=== PATIENT | male | born 1965 | race African-American/Black ===

== ENCOUNTER 2020-09-07 12:10 | Outpatient (REF) | payer OTHER, SELFPAY ==
[2020-09-07 13:48] LABS: MANUAL DIFF FLAG NO
[2020-09-07 13:58] LABS: Basophils Percent Auto 0.8 % (0-2); Eosinophils Absolute Auto 0.1 X10*3/uL (0.0-0.4); Eosinophils Percent Auto 2.5 % (0-4); Hematocrit 27.1 % (42-52); Hemoglobin 8.9 g/dl (14.0-18.0); INTERNATIONAL NORM RATIO 1.4 (0.9-1.1); Imm Gran Abs Auto 0.01 X10*3/uL (0.00-0.03); Imm Gran Pct Auto 0.3 % (0.0-0.4); Lymphocytes Absolute Auto 1.3 X10*3/uL (1.2-4.9); Lymphocytes Percent Auto 36.5 % (20-40); Mean Corpuscular HGB Conc 32.8 g/dl (31.0-36.0); Mean Corpuscular Hemoglobin 28.9 pg (27.0-33.0); Mean Platelet Volume 9.8 fL (9.4-12.4); Monocytes Absolute Auto 0.5 X10*3/uL (0.1-1.2); Monocytes Percent Auto 13.2 % (2-11); Neutrophils Absolute Auto 1.7 X10*3/uL (2.0-8.3); Neutrophils Percent Auto 46.7 % (45-73); Platelet Count 222 X10*3/uL (160-400); Prothrombin Time 16.3 SEC (10.8-13.0); Red Blood Count 3.08 X10*6/uL (4.60-5.80); Red Cell Distribution Width 16.5 % (11.0-16.0); White Blood Count 3.6 X10*3/uL (4.8-10.8)
[2020-09-07 14:40] LABS: Alanine Aminotransferase 42 U/L (0-40); Albumin Level 2.4 g/dL (3.5-5.0); Alkaline Phosphatase 226 U/L (39-117); Anion Gap 10 (12-20); Aspartate Amino Transferase 113 U/L (5-37); Bilirubin Total 2.1 mg/dL (0.0-1.0); Blood Urea Nitrogen 9 mg/dL (9-16); Carbon Dioxide 20 mmol/L (22-29); Chloride 110 mmol/L (96-108); Estimated Glomerular Filt Rate > 60; Glucose Random 204 mg/dL (60-115); Magnesium 1.7 mg/dL (1.6-2.6); Potassium 4.2 mmol/l (3.3-5.1); Sodium 136 mmol/L (135-145); Total Protein 7.3 g/dL (6.5-8.0)
[2020-09-07 14:55] LABS: Calcium 8.1 mg/dL (8.4-10.2)
[2020-09-08 17:08] LABS: C Reactive Protein 1.76 mg/dL (< or = 0.50); Iron 33 mcg/dL (45-160); Percent Iron Saturation 10 % (15-50); Total Iron Binding Capacity 337 mcg/dL (228-428); Unsaturated Iron Binding 304 ug/dL
[2020-09-08 17:28] LABS: Ferritin 19 ng/mL (20-250)
== END 2020-09-07 12:11 | disposition home or self-care (01) ==
LOC: HO.LAB 12:10
PROVIDERS: Visit Provider Internal Medicine Gastroenterology
DX: K70.10 Alcoholic hepatitis without ascites (principal)
CPT/HCPCS: 36415; 80053; 82728; 83540; 83735; 85025; 85610; 86140

== ENCOUNTER → 2020-09-08 15:39 | Outpatient (BNVA) | payer OTHER, SELFPAY | PROVIDERS: Visit Provider Internal Medicine Gastroenterology | DX: K70.0 Alcoholic fatty liver (principal); F10.10 Alcohol abuse, uncomplicated; E88.09 Other disorders of plasma-protein metabolism, not elsewhere classified; K51.90 Ulcerative colitis, unspecified, without complications; D68.9 Coagulation defect, unspecified; D64.9 Anemia, unspecified | CPT/HCPCS: 99212 ==

== ENCOUNTER 2020-10-05 13:01 | Outpatient (REF) | payer OTHER, SELFPAY ==
[2020-10-05 14:37] LABS: MANUAL DIFF FLAG NO
[2020-10-05 14:44] LABS: Basophils Percent Auto 0.6 % (0-2); Eosinophils Absolute Auto 0.1 X10*3/uL (0.0-0.4); Eosinophils Percent Auto 2.7 % (0-4); Hematocrit 26.2 % (42-52); Hemoglobin 8.7 g/dl (14.0-18.0); Imm Gran Abs Auto 0.02 X10*3/uL (0.00-0.03); Imm Gran Pct Auto 0.4 % (0.0-0.4); Lymphocytes Absolute Auto 1.3 X10*3/uL (1.2-4.9); Mean Corpuscular HGB Conc 33.2 g/dl (31.0-36.0); Mean Corpuscular Hemoglobin 26.7 pg (27.0-33.0); Mean Corpuscular Volume 80.4 fL (80-98); Mean Platelet Volume 9.2 fL (9.4-12.4); Monocytes Absolute Auto 0.6 X10*3/uL (0.1-1.2); Monocytes Percent Auto 11.7 % (2-11); Neutrophils Absolute Auto 2.7 X10*3/uL (2.0-8.3); Neutrophils Percent Auto 56.6 % (45-73); Platelet Count 216 X10*3/uL (160-400); Red Blood Count 3.26 X10*6/uL (4.60-5.80); Red Cell Distribution Width 19.4 % (11.0-16.0); White Blood Count 4.8 X10*3/uL (4.8-10.8)
[2020-10-05 14:47] LABS: INTERNATIONAL NORM RATIO 1.5 (0.9-1.1); Prothrombin Time 18.3 SEC (10.8-13.0)
[2020-10-05 15:23] LABS: Alanine Aminotransferase 54 U/L (0-40); Albumin Level 2.3 g/dL (3.5-5.0); Alkaline Phosphatase 294 U/L (39-117); Anion Gap 11 (12-20); Aspartate Amino Transferase 142 U/L (5-37); Bilirubin Total 3.2 mg/dL (0.0-1.0); Blood Urea Nitrogen 6 mg/dL (9-16); Calcium 8.1 mg/dL (8.4-10.2); Carbon Dioxide 22 mmol/L (22-29); Chloride 107 mmol/L (96-108); Estimated Glomerular Filt Rate > 60; Gamma Glutamyl Transpeptidase 777 U/L (11-51); Glucose Random 88 mg/dL (60-115); Potassium 4.2 mmol/l (3.3-5.1); Sodium 136 mmol/L (135-145); Total Protein 7.1 g/dL (6.5-8.0)
[2020-10-06 18:33] LABS: C Reactive Protein 1.66 mg/dL (< or = 0.50); Iron 33 mcg/dL (45-160); Percent Iron Saturation 10 % (15-50); Total Iron Binding Capacity 336 mcg/dL (228-428); Unsaturated Iron Binding 303 ug/dL
[2020-10-06 18:53] LABS: Ferritin 15 ng/mL (20-250)
== END 2020-10-05 13:02 | disposition home or self-care (01) ==
LOC: HO.LAB 13:01
PROVIDERS: Visit Provider Internal Medicine Gastroenterology
DX: D64.9 Anemia, unspecified (principal); K76.0 Fatty (change of) liver, not elsewhere classified; Z79.01 Long term (current) use of anticoagulants
CPT/HCPCS: 36415; 80053; 82728; 82977; 83540; 85025; 85610; 86140

== ENCOUNTER → 2020-10-21 13:23 | Outpatient (BNVA) | payer OTHER, SELFPAY | PROVIDERS: Visit Provider Internal Medicine Gastroenterology | DX: Z13.89 Encounter for screening for other disorder (principal) ==

== ENCOUNTER 2020-11-03 08:07 | Emergency (ER) | payer OTHER, SELFPAY ==
[2020-11-03 08:10] VITALS: BP 139/75; PULSE 97; RESP 20; TEMP 36.9; O2SAT 96; BMI 34.2
--- NOTE | 2020-11-03 08:55 | ECG_ITS ---
Test Reason : WEAKNESS Blood Pressure : / mmHG Vent. Rate : 076 BPM Atrial Rate : 076 BPM P-R Int : 194 ms QRS Dur : 090 ms QT Int : 396 ms P-R-T Axes : 054 -07 -10 degrees QTc Int : 445 ms Normal sinus rhythm with sinus arrhythmia Inferior infarct , age undetermined Poor R wave progression Abnormal ECG No previous ECGs available Referred By: Malka Muller Electronically Signed By:Jean Carlos Randle
[2020-11-03 09:17] VITALS: BP 126/80; PULSE 93; RESP 20; O2SAT 100
--- NOTE | 2020-11-03 09:18 | XR_ITS ---
EXAMINATION: XR CHEST CLINICAL INFORMATION: SOB/generalized weakness COMPARISON: None TECHNIQUE: 2 views of the chest were obtained. FINDINGS: No significant abnormality is noted involving the heart, lungs, mediastinum, bony thorax or soft tissues. XR/XR chest 2V IMPRESSION: Unremarkable chest examination.
--- NOTE | 2020-11-03 09:19 | ED.WEAKNESS ---
HPI - Weakness General Chief complaint: Weakness <CINDI June Last Filed: 11/03/20 10:34> Stated complaint: WEAKNESS <CINDI June Last Filed: 11/03/20 10:34> Time Seen by Provider: 11/03/20 08:53 <CINDI June Last Filed: 11/03/20 10:34> Source: patient <CINDI June Last Filed: 11/03/20 10:34> Mode of arrival: ambulatory <CINDI June Last Filed: 11/03/20 10:34> Limitations: no limitations <CINDI June Last Filed: 11/03/20 10:34> History of Present Illness HPI Narrative: 54yoM c PMHx of alcohol abuse, ulcerative colitis on Lialda QID asprescribed, anemia on Iron supplements, steatohepatitis, hypoalbuminemia, and hyperbilirubinemia who presents to the ED c c/o increased generalized weakness, shortness of breath, dyspnea on exertion and right upper quadrant abdominal pain over the past week. Reports that he has not drank any alcohol in 45 days. Reports taking all his medications as prescribed. He reports he has had weight loss not weight gain. He reports having three bowel movements per day. He denies any blood in stool. Denies fevers, dizziness, changes in vision, CP, orthopnea, back pain, dysuria, hematuria, hemoptysis, melena or any other symptoms complaints or concerns at this time. <CINDI June Last Filed: 11/03/20 10:34> Related Data Home medications: Home Medications Medication Instructions Recorded Confirmed gabapentin 100 mg capsule 100 mg PO DAILY 09/08/20 09/08/20 Previous Rx's Medication Instructions Recorded cholecalciferol (vitamin D3) 1,250 50,000 unit PO QWEEK 84 Days #12 09/03/20 mcg (50,000 unit) capsule cap omeprazole 40 mg capsule,delayed 40 mg PO DAILY 30 Days #30 cap 09/29/20 release propranolol 10 mg tablet 10 mg PO BID 30 Days #60 tab 09/29/20 spironolactone 25 mg tablet 25 mg PO DAILY 30 Days #30 tab 09/29/20 mesalamine 1.2 gram tablet,delayed 4.8 g PO DAILY 30 Days #120 tab 10/02/20 release ferrous sulfate 325 mg (65 mg 325 mg PO TID 30 Days #90 tab 10/14/20 iron) tablet hydroxyzine HCl 25 mg tablet 25 mg PO BEDTIME #30 tab 10/21/20 <CINDI June - Last Filed: 11/03/20 10:34> Allergies/Adverse reactions: Allergies Allergy/AdvReac Type Severity Reaction Status Date / Time No Known Allergies Allergy Unverified 08/06/20 16:40 [No Known Allergies*] <CINDI June - Last Filed: 11/03/20 10:34> Review of Systems Review of Systems: Constitutional : + Weight loss, + Fatigue, No Fever, No Chills, No Night Sweats, No Malaise ENT/Mouth: No ear pain, No sore throat, No Difficulty swallowing Cardiovascular : No Chest Pain, No SOB, No Dyspnea on Exertion, + Orthopnea, NoEdema, No Palpitations Respiratory : + Cough, No Sputum, No Wheezing, No Dyspnea Gastrointestinal : No Nausea, No Vomiting, No Diarrhea, + abdominal Pain, No Hematochezia, No Melena Genitourinary : No irregular bleeding, No Dysuria, No Urinary Frequency, No Hematuria,No Urinary Incontinence, No Urgency, No Flank Pain Musculoskeletal : No joint pain, No Myalgias, No Joint Swelling Skin : No Skin Lesions, No rash Neuro : + Weakness, No Numbness, No Paresthesias, No Loss of Consciousness, NoDizziness, No Headache Psych : No Social Issues, Heme/Lymph: No Bruising, No Bleeding,No Lymphadenopathy Endocrine :No Temperature Intolerance <CINDI June - Last Filed: 11/03/20 10:34> Yes all other systems are reviewed and are negative <CINDI June - Last Filed: 11/03/20 10:34> FORMERLY [facility], 1928–1983 Past Medical History Attestation statement: The following information was validated with the patient. 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 Mother No problems noted. Daughter No problems noted. Son No problems noted. <CINDI June - Last Filed: 11/03/20 10:34> Social History Social History: Social History Household Members: Spouse Alcohol intake: former Smoking Status: Never smoker Use of substances other than those prescribed or required for medical reasons: No Advance Directives: No Advance Directives Information Provided: No service: No Current occupational status: unemployed <CINDI June - Last Filed: 11/03/20 10:34> Physical Exam Vital Signs: Vital Signs: Last Vital Signs Temp 98.4 F 11/03/20 08:10 Pulse 102 H 11/03/20 11:01 Resp 16 11/03/20 11:01 BP 117/68 11/03/20 11:01 Pulse Ox 100 11/03/20 11:01 Body Mass Index 34.2 vital signs have been reviewed as normal and appeared to be correct. Blood pressure normal. Heart rate normal. Respiration rate normal. Temperature normal. Oxygen saturation normal. <CINDI June - Last Filed: 11/03/20 10:34> Vital Signs: Last Vital Signs Temp 98.4 F 11/03/20 08:10 Pulse 102 H 11/03/20 11:01 Resp 16 11/03/20 11:01 BP 117/68 11/03/20 11:01 Pulse Ox 100 11/03/20 11:01 Body Mass Index 34.2 <Taqueria Fuentes MD - Last Filed: 11/03/20 11:44> Appearance: Alert. Oriented X3. No acute distress. Head: Normal external exam. Normocephalic. Eyes: PERRLA. EOMI. Conjunctiva normal. Scleral icterus noted bilaterally. Eyelids normal. ENT: Pharynx normal. Uvula midline. Moist mucous membranes. No trismus noted. No drooling noted. No muffled voice noted. Neck: Normal inspection. Neck supple. FROM. No adenopathy. No meningeal signs. CVS: Normal heart rate and rhythm. Heart sound normal. No murmurs noted. Pulses normal throughout. Respiratory: No respiratory distress. Painless inspiration. Breath sounds normal. No wheezes/rales/rhonchi noted. Chest nontender. No accessory muscle usage noted or decreased air movement noted. Abdomen: Soft and TTP at RUQ/epigastric abdomen with guarding. No rigidity. Negative Roberts sign. Bowel sounds normal in all 4 quadrants. + distention noted. No organomegaly noted. No visible injury noted. No rebound tenderness. Negative Rovsing sign. Negative obturator's sign. Negative psoas sign. Back: No CVA tenderness. Full range of motion noted. Skin: Skin warm and dry. Normal skin color. Normal skin turgor. No rashes/lesions/lacerations noted. Extremities: +1pitting edema b/l noted. No calf tenderness. Extremities exhibit normal range of motion. Extremities nontender. Neuro: Oriented X 3. No motor deficit. No sensory deficit. Reflexes normal. <CINDI June - Last Filed: 11/03/20 10:34> Course Course Course Narrative: 9am - 54yoM c PMHx of alcohol abuse, ulcerative colitis on Lialda QID asprescribed, anemia on Iron supplements, steatohepatitis, hypoalbuminemia, and hyperbilirubinemia who presents to the ED c c/o increased generalized weakness, shortness of breath, dyspnea on exertion and right upper quadrant abdominal pain over the past week. - Concern for anemia vs ACS vs CHF - Plan: Labs, CXR, EKG, Blood type and screen. Provide IVF's and re-evaluate <CINDI June - Last Filed: 11/03/20 10:34> I have discussed the case and management with the RICHY <Taqueria Fuentes MD - Last Filed: 11/03/20 11:44> MDM - Weakness Medical Records Attestation: I reviewed the patient's medical records. <CINDI June - Last Filed: 11/03/20 10:34> Lab Data Attestation: I reviewed the patient's lab results. <CINDI June - Last Filed: 11/03/20 10:34> Result diagrams: : 11/03/20 09:35 11/03/20 09:35 <CINDI June - Last Filed: 11/03/20 10:34> Labs: Lab Results 11/03/20 11/03/20 11/03/20 Range/Units 09:33 09:35 09:35 WBC 5.9 (4.8-10.8) X10*3/uL RBC 3.25 L (4.60-5.80) X10*6/uL Hgb 9.2 L (14.0-18.0) g/dl Hct 26.8 L (42-52) % MCV 82.5 (80-98) fL MCH 28.3 (27.0-33.0) pg MCHC 34.3 (31.0-36.0) g/dl RDW 27.6 H (11.0-16.0) % Plt Count 196 (160-400) X10*3/uL MPV 9.4 (9.4-12.4) fL Immature Gran % (Auto) 0.5 H (0.0-0.4) % Neut % (Auto) 71.0 (45-73) % Lymph % (Auto) 16.5 L (20-40) % [place] % (Auto) 10.2 (2-11) % Eos % (Auto) 1.5 (0-4) % Baso % (Auto) 0.3 (0-2) % Lymph # (Auto) 1.0 L (1.2-4.9) X10*3/uL [place] # (Auto) 0.6 (0.1-1.2) X10*3/uL Eos # (Auto) 0.1 (0.0-0.4) X10*3/uL Baso # (Auto) 0.0 (0.0-0.2) X10*3/uL Abs Immat Gran (auto) 0.03 (0.00-0.03) X10*3/uL Absolute Neuts (auto) 4.2 (2.0-8.3) X10*3/uL Absolute Nucleated RBC 0.000 (0.0-0.012) X10*3/uL Nucleated RBC % (auto) 0.0 (0.0-0.2) /100WBC PT 23.1 H D (10.8-13.0) SEC INR 1.9 H (0.9-1.1) Sodium (135-145) mmol/L Potassium (3.3-5.1) mmol/l Chloride (96-108) mmol/L Carbon Dioxide (22-29) mmol/L Anion Gap (12-20) BUN (9-16) mg/dL Creatinine (0.5-1.4) mg/dL Estim Creat Clear Calc Estimated GFR Random Glucose (60-115) mg/dL Calcium (8.4-10.2) mg/dL Magnesium (1.6-2.6) mg/dL Total Bilirubin (0.0-1.0) mg/dL Direct Bilirubin (0.0-0.5) mg/dL AST (5-37) U/L ALT (0-40) U/L Alkaline Phosphatase (39-117) U/L Troponin I High Sens (<3.5-35.0) ng/L C-Reactive Protein (< or = 0.50) mg/dL B-Natriuretic Peptide (<100) pg/mL Total Protein (6.5-8.0) g/dL Albumin (3.5-5.0) g/dL Ethyl Alcohol mg/dL Coronavirus (PCR) NEGATIVE (Negative) Influenza Type A (PCR) NEGATIVE (Negative) Influenza Type B (PCR) NEGATIVE (Negative) RSV RNA Qual (PCR) NEGATIVE (Negative) Blood Type Antibody Screen 11/03/20 11/03/20 11/03/20 Range/Units 09:35 09:35 09:35 WBC (4.8-10.8) X10*3/uL RBC (4.60-5.80) X10*6/uL Hgb (14.0-18.0) g/dl Hct (42-52) % MCV (80-98) fL MCH (27.0-33.0) pg MCHC (31.0-36.0) g/dl RDW (11.0-16.0) % Plt Count (160-400) X10*3/uL MPV (9.4-12.4) fL Immature Gran % (Auto) (0.0-0.4) % Neut % (Auto) (45-73) % Lymph % (Auto) (20-40) % [place] % (Auto) (2-11) % Eos % (Auto) (0-4) % Baso % (Auto) (0-2) % Lymph # (Auto) (1.2-4.9) X10*3/uL [place] # (Auto) (0.1-1.2) X10*3/uL Eos # (Auto) (0.0-0.4) X10*3/uL Baso # (Auto) (0.0-0.2) X10*3/uL Abs Immat Gran (auto) (0.00-0.03) X10*3/uL Absolute Neuts (auto) (2.0-8.3) X10*3/uL Absolute Nucleated RBC (0.0-0.012) X10*3/uL Nucleated RBC % (auto) (0.0-0.2) /100WBC PT (10.8-13.0) SEC INR (0.9-1.1) Sodium 132 L (135-145) mmol/L Potassium 4.4 (3.3-5.1) mmol/l Chloride 106 (96-108) mmol/L Carbon Dioxide 19 L (22-29) mmol/L Anion Gap 11 L (12-20) BUN 9 (9-16) mg/dL Creatinine 1.08 (0.5-1.4) mg/dL Estim Creat Clear Calc 91.5 Estimated GFR > 60 Random Glucose 101 (60-115) mg/dL Calcium 7.6 L D (8.4-10.2) mg/dL Magnesium 1.6 (1.6-2.6) mg/dL Total Bilirubin 7.8 H (0.0-1.0) mg/dL Direct Bilirubin 5.5 H (0.0-0.5) mg/dL AST 78 H (5-37) U/L ALT 31 (0-40) U/L Alkaline Phosphatase 245 H (39-117) U/L Troponin I High Sens < 3.5 (<3.5-35.0) ng/L C-Reactive Protein (< or = 0.50) mg/dL B-Natriuretic Peptide 18 (<100) pg/mL Total Protein 7.2 (6.5-8.0) g/dL Albumin 2.0 L (3.5-5.0) g/dL Ethyl Alcohol < 10 mg/dL Coronavirus (PCR) (Negative) Influenza Type A (PCR) (Negative) Influenza Type B (PCR) (Negative) RSV RNA Qual (PCR) (Negative) Blood Type Antibody Screen 11/03/20 11/03/20 Range/Units 09:35 10:09 WBC (4.8-10.8) X10*3/uL RBC (4.60-5.80) X10*6/uL Hgb (14.0-18.0) g/dl Hct (42-52) % MCV (80-98) fL MCH (27.0-33.0) pg MCHC (31.0-36.0) g/dl RDW (11.0-16.0) % Plt Count (160-400) X10*3/uL MPV (9.4-12.4) fL Immature Gran % (Auto) (0.0-0.4) % Neut % (Auto) (45-73) % Lymph % (Auto) (20-40) % [place] % (Auto) (2-11) % Eos % (Auto) (0-4) % Baso % (Auto) (0-2) % Lymph # (Auto) (1.2-4.9) X10*3/uL [place] # (Auto) (0.1-1.2) X10*3/uL Eos # (Auto) (0.0-0.4) X10*3/uL Baso # (Auto) (0.0-0.2) X10*3/uL Abs Immat Gran (auto) (0.00-0.03) X10*3/uL Absolute Neuts (auto) (2.0-8.3) X10*3/uL Absolute Nucleated RBC (0.0-0.012) X10*3/uL Nucleated RBC % (auto) (0.0-0.2) /100WBC PT (10.8-13.0) SEC INR (0.9-1.1) Sodium (135-145) mmol/L Potassium (3.3-5.1) mmol/l Chloride (96-108) mmol/L Carbon Dioxide (22-29) mmol/L Anion Gap (12-20) BUN (9-16) mg/dL Creatinine (0.5-1.4) mg/dL Estim Creat Clear Calc Estimated GFR Random Glucose (60-115) mg/dL Calcium (8.4-10.2) mg/dL Magnesium (1.6-2.6) mg/dL Total Bilirubin (0.0-1.0) mg/dL Direct Bilirubin (0.0-0.5) mg/dL AST (5-37) U/L ALT (0-40) U/L Alkaline Phosphatase (39-117) U/L Troponin I High Sens (<3.5-35.0) ng/L C-Reactive Protein 4.29 H (< or = 0.50) mg/dL B-Natriuretic Peptide (<100) pg/mL Total Protein (6.5-8.0) g/dL Albumin (3.5-5.0) g/dL Ethyl Alcohol mg/dL Coronavirus (PCR) (Negative) Influenza Type A (PCR) (Negative) Influenza Type B (PCR) (Negative) RSV RNA Qual (PCR) (Negative) Blood Type O Positive Antibody Screen NEGATIVE <CINDI June - Last Filed: 11/03/20 10:34> Lab Results 11/03/20 11/03/20 11/03/20 Range/Units 09:33 09:35 09:35 WBC 5.9 (4.8-10.8) X10*3/uL RBC 3.25 L (4.60-5.80) X10*6/uL Hgb 9.2 L (14.0-18.0) g/dl Hct 26.8 L (42-52) % MCV 82.5 (80-98) fL MCH 28.3 (27.0-33.0) pg MCHC 34.3 (31.0-36.0) g/dl RDW 27.6 H (11.0-16.0) % Plt Count 196 (160-400) X10*3/uL MPV 9.4 (9.4-12.4) fL Immature Gran % (Auto) 0.5 H (0.0-0.4) % Neut % (Auto) 71.0 (45-73) % Lymph % (Auto) 16.5 L (20-40) % [place] % (Auto) 10.2 (2-11) % Eos % (Auto) 1.5 (0-4) % Baso % (Auto) 0.3 (0-2) % Lymph # (Auto) 1.0 L (1.2-4.9) X10*3/uL [place] # (Auto) 0.6 (0.1-1.2) X10*3/uL Eos # (Auto) 0.1 (0.0-0.4) X10*3/uL Baso # (Auto) 0.0 (0.0-0.2) X10*3/uL Abs Immat Gran (auto) 0.03 (0.00-0.03) X10*3/uL Absolute Neuts (auto) 4.2 (2.0-8.3) X10*3/uL Absolute Nucleated RBC 0.000 (0.0-0.012) X10*3/uL Nucleated RBC % (auto) 0.0 (0.0-0.2) /100WBC PT 23.1 H D (10.8-13.0) SEC INR 1.9 H (0.9-1.1) Sodium (135-145) mmol/L Potassium (3.3-5.1) mmol/l Chloride (96-108) mmol/L Carbon Dioxide (22-29) mmol/L Anion Gap (12-20) BUN (9-16) mg/dL Creatinine (0.5-1.4) mg/dL Estim Creat Clear Calc Estimated GFR Random Glucose (60-115) mg/dL Calcium (8.4-10.2) mg/dL Magnesium (1.6-2.6) mg/dL Total Bilirubin (0.0-1.0) mg/dL Direct Bilirubin (0.0-0.5) mg/dL AST (5-37) U/L ALT (0-40) U/L Alkaline Phosphatase (39-117) U/L Troponin I High Sens (<3.5-35.0) ng/L C-Reactive Protein (< or = 0.50) mg/dL B-Natriuretic Peptide (<100) pg/mL Total Protein (6.5-8.0) g/dL Albumin (3.5-5.0) g/dL Ethyl Alcohol mg/dL Coronavirus (PCR) NEGATIVE (Negative) Influenza Type A (PCR) NEGATIVE (Negative) Influenza Type B (PCR) NEGATIVE (Negative) RSV RNA Qual (PCR) NEGATIVE (Negative) Blood Type Antibody Screen 11/03/20 11/03/20 11/03/20 Range/Units 09:35 09:35 09:35 WBC (4.8-10.8) X10*3/uL RBC (4.60-5.80) X10*6/uL Hgb (14.0-18.0) g/dl Hct (42-52) % MCV (80-98) fL MCH (27.0-33.0) pg MCHC (31.0-36.0) g/dl RDW (11.0-16.0) % Plt Count (160-400) X10*3/uL MPV (9.4-12.4) fL Immature Gran % (Auto) (0.0-0.4) % Neut % (Auto) (45-73) % Lymph % (Auto) (20-40) % [place] % (Auto) (2-11) % Eos % (Auto) (0-4) % Baso % (Auto) (0-2) % Lymph # (Auto) (1.2-4.9) X10*3/uL [place] # (Auto) (0.1-1.2) X10*3/uL Eos # (Auto) (0.0-0.4) X10*3/uL Baso # (Auto) (0.0-0.2) X10*3/uL Abs Immat Gran (auto) (0.00-0.03) X10*3/uL Absolute Neuts (auto) (2.0-8.3) X10*3/uL Absolute Nucleated RBC (0.0-0.012) X10*3/uL Nucleated RBC % (auto) (0.0-0.2) /100WBC PT (10.8-13.0) SEC INR (0.9-1.1) Sodium 132 L (135-145) mmol/L Potassium 4.4 (3.3-5.1) mmol/l Chloride 106 (96-108) mmol/L Carbon Dioxide 19 L (22-29) mmol/L Anion Gap 11 L (12-20) BUN 9 (9-16) mg/dL Creatinine 1.08 (0.5-1.4) mg/dL Estim Creat Clear Calc 91.5 Estimated GFR > 60 Random Glucose 101 (60-115) mg/dL Calcium 7.6 L D (8.4-10.2) mg/dL Magnesium 1.6 (1.6-2.6) mg/dL Total Bilirubin 7.8 H (0.0-1.0) mg/dL Direct Bilirubin 5.5 H (0.0-0.5) mg/dL AST 78 H (5-37) U/L ALT 31 (0-40) U/L Alkaline Phosphatase 245 H (39-117) U/L Troponin I High Sens < 3.5 (<3.5-35.0) ng/L C-Reactive Protein (< or = 0.50) mg/dL B-Natriuretic Peptide 18 (<100) pg/mL Total Protein 7.2 (6.5-8.0) g/dL Albumin 2.0 L (3.5-5.0) g/dL Ethyl Alcohol < 10 mg/dL Coronavirus (PCR) (Negative) Influenza Type A (PCR) (Negative) Influenza Type B (PCR) (Negative) RSV RNA Qual (PCR) (Negative) Blood Type Antibody Screen 11/03/20 11/03/20 Range/Units 09:35 10:09 WBC (4.8-10.8) X10*3/uL RBC (4.60-5.80) X10*6/uL Hgb (14.0-18.0) g/dl Hct (42-52) % MCV (80-98) fL MCH (27.0-33.0) pg MCHC (31.0-36.0) g/dl RDW (11.0-16.0) % Plt Count (160-400) X10*3/uL MPV (9.4-12.4) fL Immature Gran % (Auto) (0.0-0.4) % Neut % (Auto) (45-73) % Lymph % (Auto) (20-40) % [place] % (Auto) (2-11) % Eos % (Auto) (0-4) % Baso % (Auto) (0-2) % Lymph # (Auto) (1.2-4.9) X10*3/uL [place] # (Auto) (0.1-1.2) X10*3/uL Eos # (Auto) (0.0-0.4) X10*3/uL Baso # (Auto) (0.0-0.2) X10*3/uL Abs Immat Gran (auto) (0.00-0.03) X10*3/uL Absolute Neuts (auto) (2.0-8.3) X10*3/uL Absolute Nucleated RBC (0.0-0.012) X10*3/uL Nucleated RBC % (auto) (0.0-0.2) /100WBC PT (10.8-13.0) SEC INR (0.9-1.1) Sodium (135-145) mmol/L Potassium (3.3-5.1) mmol/l Chloride (96-108) mmol/L Carbon Dioxide (22-29) mmol/L Anion Gap (12-20) BUN (9-16) mg/dL Creatinine (0.5-1.4) mg/dL Estim Creat Clear Calc Estimated GFR Random Glucose (60-115) mg/dL Calcium (8.4-10.2) mg/dL Magnesium (1.6-2.6) mg/dL Total Bilirubin (0.0-1.0) mg/dL Direct Bilirubin (0.0-0.5) mg/dL AST (5-37) U/L ALT (0-40) U/L Alkaline Phosphatase (39-117) U/L Troponin I High Sens (<3.5-35.0) ng/L C-Reactive Protein 4.29 H (< or = 0.50) mg/dL B-Natriuretic Peptide (<100) pg/mL Total Protein (6.5-8.0) g/dL Albumin (3.5-5.0) g/dL Ethyl Alcohol mg/dL Coronavirus (PCR) (Negative) Influenza Type A (PCR) (Negative) Influenza Type B (PCR) (Negative) RSV RNA Qual (PCR) (Negative) Blood Type O Positive Antibody Screen NEGATIVE <Taqueria Alfredo, MD - Last Filed: 11/03/20 11:44> ECG Data Attestation: I personally reviewed and interpreted this ECG as follows: <CINDI June - Last Filed: 11/03/20 10:34> ECG interpretation date: 11/03/20 <CINDI June - Last Filed: 11/03/20 10:34> ECG interpretation time: 09:07 <CINDI June - Last Filed: 11/03/20 10:34> Interpretation: Normal sinus rhythm with sinus arrhythmia with ventricular rate of [address] changes no acute ischemic changes noted. No prior EKGs to compare to at this time. <CINDI June - Last Filed: 11/03/20 10:34> Discharge Plan Discharge Prescriptions: No Action cholecalciferol (vitamin D3) 1,250 mcg (50,000 unit) capsule 50,000 unit PO QWEEK 84 Days Qty: 12 RF: 0 spironolactone 25 mg tablet 25 mg PO DAILY 30 Days Qty: 30 RF: 2 propranolol 10 mg tablet 10 mg PO BID 30 Days Qty: 60 RF: 2 omeprazole 40 mg capsule,delayed release(DR/EC) 40 mg PO DAILY 30 Days Qty: 30 RF: 2 mesalamine [Lialda] 1.2 gram tablet,delayed release (DR/EC) 4.8 g PO DAILY 30 Days Qty: 120 RF: 2 ferrous sulfate 325 mg (65 mg iron) tablet 325 mg PO TID 30 Days Qty: 90 RF: 2 gabapentin 100 mg capsule 100 mg PO DAILY RF: 0 hydroxyzine HCl 25 mg tablet 25 mg PO BEDTIME Qty: 30 RF: 1 <CINDI June - Last Filed: 11/03/20 10:34>
[2020-11-03] MEDS: 0.9 % Sodium Chloride 1,000 ML 999 ML IVCONT (09:36)
--- NOTE | 2020-11-03 09:39 | PC.NURSE ---
PT ALERT AND ORIENTED, SKIN APPROPRIATE FOR ETHNICITY, PT STATES HAVING GENERAL WEAKNESS FOR ABOUT ONE WEEK AND SOB OF WITH EXERTION, AND INTERMITTENT DRY COUGH, LS CLEAR. NOTICEABLE YELLOW SCLERA BUT PT REPORTS ITS BEEN LIKE THAT FOR MONTHS, SLIGHT PEDING EDEMA +1 IN THE LOWER EXTREMITIES.
[2020-11-03 09:48] LABS: MANUAL DIFF FLAG NO
[2020-11-03 09:52] LABS: Basophils Percent Auto 0.3 % (0-2); Eosinophils Absolute Auto 0.1 X10*3/uL (0.0-0.4); Eosinophils Percent Auto 1.5 % (0-4); Hematocrit 26.8 % (42-52); Hemoglobin 9.2 g/dl (14.0-18.0); INTERNATIONAL NORM RATIO 1.9 (0.9-1.1); Imm Gran Abs Auto 0.03 X10*3/uL (0.00-0.03); Imm Gran Pct Auto 0.5 % (0.0-0.4); Lymphocytes Percent Auto 16.5 % (20-40); Mean Corpuscular HGB Conc 34.3 g/dl (31.0-36.0); Mean Corpuscular Hemoglobin 28.3 pg (27.0-33.0); Mean Corpuscular Volume 82.5 fL (80-98); Mean Platelet Volume 9.4 fL (9.4-12.4); Monocytes Absolute Auto 0.6 X10*3/uL (0.1-1.2); Monocytes Percent Auto 10.2 % (2-11); Neutrophils Absolute Auto 4.2 X10*3/uL (2.0-8.3); Platelet Count 196 X10*3/uL (160-400); Prothrombin Time 23.1 SEC (10.8-13.0); Red Blood Count 3.25 X10*6/uL (4.60-5.80); Red Cell Distribution Width 27.6 % (11.0-16.0); White Blood Count 5.9 X10*3/uL (4.8-10.8)
[2020-11-03 10:16] LABS: C Reactive Protein 4.29 mg/dL (< or = 0.50); Ethanol < 10 mg/dL
[2020-11-03 10:18] LABS: Alanine Aminotransferase 31 U/L (0-40); Alkaline Phosphatase 245 U/L (39-117); Anion Gap 11 (12-20); Aspartate Amino Transferase 78 U/L (5-37); Bilirubin Direct 5.5 mg/dL (0.0-0.5); Bilirubin Total 7.8 mg/dL (0.0-1.0); Blood Urea Nitrogen 9 mg/dL (9-16); Calcium 7.6 mg/dL (8.4-10.2); Carbon Dioxide 19 mmol/L (22-29); Chloride 106 mmol/L (96-108); Creatinine Clr Calc Pharmacy 91.5; Estimated Glomerular Filt Rate > 60; Glucose Random 101 mg/dL (60-115); Magnesium 1.6 mg/dL (1.6-2.6); Potassium 4.4 mmol/l (3.3-5.1); Sodium 132 mmol/L (135-145); Total Protein 7.2 g/dL (6.5-8.0)
[2020-11-03 10:23] LABS: B Type Natriuretic Peptide 18 pg/mL (<100)
[2020-11-03 10:36] LABS: Influenza A PCR NEGATIVE (Negative); Influenza B PCR NEGATIVE (Negative); Resp Syncy Virus RNA Qual PCR NEGATIVE (Negative); SARS COV2 PCR INHOUSE NEGATIVE (Negative)
[2020-11-03 10:39] LABS: Troponin-I High Sensitivity < 3.5 ng/L (<3.5-35.0)
[2020-11-03 11:01] VITALS: BP 117/68; PULSE 102; RESP 16; O2SAT 100
[2020-11-03 12:35] VITALS: BP 125/83; PULSE 92; RESP 16; O2SAT 97
== END 2020-11-03 12:43 | disposition home or self-care (01) ==
PROVIDERS: Physician Assistant Medical; Emergency Provider Emergency Medicine
DX: R53.1 Weakness (principal); R10.11 Right upper quadrant pain; R10.13 Epigastric pain; R06.02 Shortness of breath; Z11.59 Encounter for screening for other viral diseases; Z79.899 Other long term (current) drug therapy
CPT/HCPCS: 0241U; 36415; 71046; 80048; 80076; 80320; 83735; 83880; 84484; 85025; 85610; 86140; 86850; 86901; 93005; 96360; 99284

== ENCOUNTER 2020-11-21 07:27 | Outpatient (REF) | payer OTHER, SELFPAY | END 2020-11-21 07:28 | disposition home or self-care (01) | LOC: HO.LAB 07:27 | PROVIDERS: Visit Provider Internal Medicine Gastroenterology | DX: Z13.89 Encounter for screening for other disorder (principal) ==

== ENCOUNTER 2020-11-23 11:19 | Outpatient (REF) | payer OTHER, SELFPAY ==
[2020-11-23 13:11] LABS: Basophils Percent Auto 0.6 % (0-2); Eosinophils Absolute Auto 0.1 X10*3/uL (0.0-0.4); Eosinophils Percent Auto 2.1 % (0-4); Hematocrit 30.4 % (42-52); Hemoglobin 10.2 g/dl (14.0-18.0); Imm Gran Abs Auto 0.02 X10*3/uL (0.00-0.03); Imm Gran Pct Auto 0.4 % (0.0-0.4); Lymphocytes Absolute Auto 1.1 X10*3/uL (1.2-4.9); Lymphocytes Percent Auto 20.5 % (20-40); Mean Corpuscular HGB Conc 33.6 g/dl (31.0-36.0); Mean Corpuscular Hemoglobin 30.2 pg (27.0-33.0); Mean Corpuscular Volume 89.9 fL (80-98); Mean Platelet Volume 8.8 fL (9.4-12.4); Monocytes Absolute Auto 0.4 X10*3/uL (0.1-1.2); Monocytes Percent Auto 6.9 % (2-11); Neutrophils Absolute Auto 3.6 X10*3/uL (2.0-8.3); Neutrophils Percent Auto 69.5 % (45-73); Platelet Count 182 X10*3/uL (160-400); Red Blood Count 3.38 X10*6/uL (4.60-5.80); Red Cell Distribution Width 22.2 % (11.0-16.0); White Blood Count 5.2 X10*3/uL (4.8-10.8)
[2020-11-23 13:12] LABS: MANUAL DIFF FLAG NO
[2020-11-23 13:22] LABS: Prothrombin Time 23.9 SEC (10.8-13.0)
[2020-11-23 14:00] LABS: Ferritin 66 ng/mL (20-250)
[2020-11-23 14:14] LABS: Alanine Aminotransferase 57 U/L (0-40); Alkaline Phosphatase 402 U/L (39-117); Anion Gap 13 (12-20); Aspartate Amino Transferase 167 U/L (5-37); Bilirubin Direct 4.5 mg/dL (0.0-0.5); Blood Urea Nitrogen 7 mg/dL (9-16); C Reactive Protein 4.15 mg/dL (< or = 0.50); Calcium 7.5 mg/dL (8.4-10.2); Carbon Dioxide 21 mmol/L (22-29); Chloride 109 mmol/L (96-108); Estimated Glomerular Filt Rate > 60; Gamma Glutamyl Transpeptidase 350 U/L (11-51); Glucose Fasting 94 mg/dL (60-99); Iron 91 mcg/dL (45-160); Magnesium 1.7 mg/dL (1.6-2.6); Percent Iron Saturation 43 % (15-50); Potassium 3.8 mmol/l (3.3-5.1); Sodium 139 mmol/L (135-145); Total Iron Binding Capacity 214 mcg/dL (228-428); Total Protein 7.6 g/dL (6.5-8.0); Unsaturated Iron Binding 123 ug/dL
[2020-11-23 14:51] LABS: CDIFF Ag Negative (Negative); CDIFF Internal ctrl Dots and bkg OK (V); CDiff Toxin Negative (Negative)
[2020-11-23 15:19] LABS: Leukocytes Stool Qualitative NEGATIVE (NEGATIVE)
[2020-11-26 14:33] LABS: TS Negative Control Passed; TS Panel A 0; TS Panel B 0; TS Positive Control Passed; TSpotTB Negative (SeeBelow)
[2020-11-27 12:11] LABS: Prometheus TPMT Enzyme SEE SEPARATE REPORT
[2020-11-28 00:12] LABS: Calprotectin, Fecal 113 mcg/g
[2020-11-29 19:37] LABS: Cholic Acid 40.1 umol/L (< OR = 1.8); Deoxycholic Acid <0.5 umol/L (< OR = 2.4); Total Bile Acids 216.1 umol/L (< OR = 6.8)
== END 2020-11-23 11:20 | disposition home or self-care (01) ==
LOC: HO.LAB 11:19
PROVIDERS: Visit Provider Internal Medicine Gastroenterology
DX: F10.10 Alcohol abuse, uncomplicated (principal); K70.10 Alcoholic hepatitis without ascites; K76.0 Fatty (change of) liver, not elsewhere classified; L29.8 Other pruritus; D64.9 Anemia, unspecified; E88.09 Other disorders of plasma-protein metabolism, not elsewhere classified; K51.90 Ulcerative colitis, unspecified, without complications
CPT/HCPCS: 36415; 80053; 82248; 82542; 82728; 82977; 83540; 83735; 83993; 85025; 85610; 86140; 86481; 87324; 87449; 89055

== ENCOUNTER → 2020-11-25 13:45 | Outpatient (BNVA) | payer OTHER, SELFPAY | PROVIDERS: Visit Provider Internal Medicine Gastroenterology | DX: Z76.89 Persons encountering health services in other specified circumstances (principal) ==

== ENCOUNTER 2020-11-27 07:49 | Day surgery (SDC) | payer OTHER, SELFPAY ==
[2020-11-27 08:35] LABS: Glucose, Whole Blood 61 mg/dL (60-115)
[2020-11-27 08:39] LABS: MANUAL DIFF FLAG NO
[2020-11-27 08:41] LABS: Basophils Percent Auto 0.7 % (0-2); Eosinophils Absolute Auto 0.4 X10*3/uL (0.0-0.4); Eosinophils Percent Auto 6.8 % (0-4); Hematocrit 31.4 % (42-52); Hemoglobin 10.7 g/dl (14.0-18.0); Imm Gran Abs Auto 0.01 X10*3/uL (0.00-0.03); Imm Gran Pct Auto 0.2 % (0.0-0.4); Lymphocytes Absolute Auto 1.9 X10*3/uL (1.2-4.9); Lymphocytes Percent Auto 33.4 % (20-40); Mean Corpuscular HGB Conc 34.1 g/dl (31.0-36.0); Mean Corpuscular Hemoglobin 30.9 pg (27.0-33.0); Mean Corpuscular Volume 90.8 fL (80-98); Mean Platelet Volume 9.1 fL (9.4-12.4); Monocytes Absolute Auto 0.6 X10*3/uL (0.1-1.2); Monocytes Percent Auto 9.8 % (2-11); Neutrophils Absolute Auto 2.8 X10*3/uL (2.0-8.3); Neutrophils Percent Auto 49.1 % (45-73); Platelet Count 173 X10*3/uL (160-400); Red Blood Count 3.46 X10*6/uL (4.60-5.80); Red Cell Distribution Width 20.8 % (11.0-16.0); White Blood Count 5.7 X10*3/uL (4.8-10.8)
[2020-11-27 08:49] LABS: INTERNATIONAL NORM RATIO 2.2 (0.9-1.1); Prothrombin Time 26.7 SEC (10.8-13.0)
--- NOTE | 2020-11-27 08:49 | US_ITS ---
EXAMINATION: ULTRASOUND-GUIDED PARACENTESIS CLINICAL INFORMATION: Ascites and abdominal distention COMPARISON: None TECHNIQUE: Procedure risks and benefits including bleeding, infection and low blood pressure were discussed with the patient and informed consent was obtained. The right upper quadrant was prepped and draped in the usual sterile fashion. Skin and soft tissues were anesthetized with 1% lidocaine plain. Using ultrasound guidance and a 5 Maltese rapid centesis catheter, access to the ascitic fluid was obtained. 1.3 L of slightly cloudy yellow fluid was removed. Diagnostic specimen was sent. FINDINGS: There is a small amount of ascites. US/US paracentesis abd w/image IMPRESSION: Ultrasound-guided paracentesis.
[2020-11-27 09:32] LABS: Alanine Aminotransferase 43 U/L (0-40); Albumin Level 1.8 g/dL (3.5-5.0); Alkaline Phosphatase 385 U/L (39-117); Anion Gap 11 (12-20); Aspartate Amino Transferase 109 U/L (5-37); Bilirubin Total 5.3 mg/dL (0.0-1.0); Blood Urea Nitrogen 7 mg/dL (9-16); C Reactive Protein 3.96 mg/dL (< or = 0.50); Calcium 7.4 mg/dL (8.4-10.2); Carbon Dioxide 20 mmol/L (22-29); Chloride 109 mmol/L (96-108); Estimated Glomerular Filt Rate > 60; Gamma Glutamyl Transpeptidase 321 U/L (11-51); Glucose Random 66 mg/dL (60-115); Magnesium 1.6 mg/dL (1.6-2.6); Potassium 4.1 mmol/l (3.3-5.1); Sodium 136 mmol/L (135-145); Total Protein 7.1 g/dL (6.5-8.0)
--- NOTE | 2020-11-27 09:52 | HO.RADPN ---
RADIOLOGY Narrative Narrative: right upper quadrant paracentesis performed using 5 fr catheter. 1.3 L clightly cloudy yewwlo fluid removed.
[2020-11-27 10:10] VITALS: BP 114/67; PULSE 58; RESP 17; TEMP 36.4; O2SAT 100
[2020-11-27 10:25] VITALS: BP 104/67; PULSE 54; RESP 17; O2SAT 100
[2020-11-27 10:52] VITALS: BP 113/69; PULSE 59; RESP 17; O2SAT 100
[2020-11-27 11:00] VITALS: BP 120/72; PULSE 61; RESP 16; O2SAT 100
[2020-11-27 11:13] VITALS: BP 125/79; PULSE 56; RESP 16; O2SAT 100
[2020-11-27] MEDS: Lidocaine HCl 1 % 20 ML VIAL 5 ML SUBCUT (11:42)
[2020-11-27 13:02] LABS: WBC Peritoneal Fluid 0.237 X10*3/uL
[2020-11-27 13:03] LABS: RBC Peritoneal Fluid < 0.002 X10*6/uL
[2020-11-27 14:37] LABS: BF Shift QC OK YES; Lymphocyte Peritoneal Fl 35 %; Monocytes Peritoneal Fl 27 %; Neutrophils Peritoneal Fluid 14 %; Other Peritioneal Fl 24 %
[2020-11-27 14:43] LABS: Lactate Dehydrogenase 407 U/L (118-273)
[2020-11-27 14:56] LABS: Lipase 85 U/L (8-78)
[2020-11-28 07:11] LABS: Albumin Peritoneal Fluid 0.3
== END 2020-11-27 11:26 | disposition home or self-care (01) ==
PROVIDERS: Radiology Diagnostic Radiology; Visit Provider Internal Medicine Gastroenterology
DX: R18.8 Other ascites (principal); K76.0 Fatty (change of) liver, not elsewhere classified; E88.09 Other disorders of plasma-protein metabolism, not elsewhere classified; F10.10 Alcohol abuse, uncomplicated; D64.9 Anemia, unspecified; K51.90 Ulcerative colitis, unspecified, without complications; Z79.899 Other long term (current) drug therapy
CPT/HCPCS: 36415; 49083; 80053; 82042; 82947; 82977; 83615; 83690; 83735; 85025; 85610; 86140; 87070; 87073; 87116; 87205; 88112; 88305; 89051

== ENCOUNTER 2020-12-09 09:02 | Outpatient (REF) | payer OTHER, SELFPAY ==
--- NOTE | 2020-12-09 09:04 | MR_ITS ---
EXAMINATION: MR OF THE ABDOMEN AND PELVIS WITH AND WITHOUT CONTRAST CLINICAL INFORMATION: Ulcerative colitis COMPARISON: Previous abdominal ultrasound July 2020 TECHNIQUE: Sagittal axial and coronal sequences through the abdomen and pelvis with and without contrast. The patient received 10 mL intravenous Gadavist contrast. Exam is significantly limited due to motion artifact. FINDINGS: There is diffuse subcutaneous edema or anasarca. The lung bases are clear. The liver appears cirrhotic with nodular contour and hypertrophy of the left lobe and caudate lobe of the liver. No focal liver lesion is seen. The gallbladder is very dilated measuring 7 x 6 x 14 cm in dimension. There may be a tiny gallstone. Gallbladder wall does not appear thickened. There is no pericholecystic fluid. There is no intra or extrahepatic biliary duct dilatation. There is a moderate amount of ascites. The pancreas is unremarkable. The spleen is unremarkable. The adrenal glands are unremarkable. There are small renal cysts,. There is a 5 mm cyst in the upper pole the right kidney and 1 cm cyst in the lower pole of the left kidney. The kidneys are otherwise unremarkable. There is wall thickening and ahaustral appearance to the colon, particularly the left colon and sigmoid colon. Appearance is compatible with patient's diagnosis of ulcerative colitis. There is wall enhancement of the left and sigmoid colon and thickening suggestive of active inflammatory bowel disease. No bowel dilatation is seen. The small bowel is unremarkable. The stomach is unremarkable. The appendix is not identified. The bladder is not optimally distended. The prostate gland does not appear enlarged. Vascular structures are unremarkable. There is a small umbilical hernia containing fat and small amount of ascitic fluid. Bony structures are unremarkable. MR/MR abdomen wo/w con IMPRESSION: Very limited exam due to motion artifact. Wall thickening and ahaustral appearance of the colon compatible with patient's history of ulcerative colitis. Wall thickening and enhancement of the left colon and sigmoid colon suggestive of active inflammatory bowel disease. Cirrhotic-appearing liver. Very dilated gallbladder similar to previous ultrasound July 2020. Question small gallstone in the gallbladder. Moderate amount of ascites and diffuse anasarca. Small bilateral renal cysts.
--- NOTE | 2020-12-14 16:06 | PM.GICN ---
History of Present Illness Data of Consult Service Date: 12/14/20 Requesting physician: John ULRICH Reason for consult: ESLD, Coagulopathy, suspected UC 55 YM with ESLD related to past heavy ETOH abuse (quitted 2 months ago) complicated by portal hypertension, coagulopathy, thrombocytopenia and 1+ esophageal varices presented [place] [facility] [place] with 6 month hx of cough and noted hemoptysis today. Patient is on Lialda for ulcerative colitis.: Patient alcoholic with alcoholic cirrhosis with ascites last drink was 2 months ago been followed by industrial designer seen her PCP on 12/10 plan for colonoscopy comes in for chronic cough for more than 6 months and today he noticed after coughing slight bright blood phlegm is mostly mucopurulent no fever no chills no significant shortness of breath patient has a ascites with moderate in size had MRI of the abdomen done yesterday which showed similar findings. Patient is scheduled for colonoscopy next week last platelet count of 173K on 11/27 patient endoscopy done on 08/09 which showed grade 1 esophageal varices with erythema no active bleeding no rectal bleed or melena no gum bleed . IMAGING STUDIES: 12/09/20 ABDOMINAL MRI SHOWED: Very limited exam due to motion artifact. Wall thickening and ahaustral appearance of the colon compatible with patient's history of ulcerative colitis. Wall thickening and enhancement of the left colon and sigmoid colon suggestive of active inflammatory bowel disease. Cirrhotic-appearing liver. Very dilated gallbladder similar to previous ultrasound July 2020. Question small gallstone in the gallbladder. Moderate amount of ascites and diffuse anasarca. Small bilateral renal cysts. TODAY'S VISIT: Pt is followed by Dr Tristan since 08/09. Pt denies drinking ETOH since Sep,. He has been a vegetarian for the past 9 years and has been trying to eat some beef since earlier this month. He complains of chronic cough x 6 months and noted some hemoptysis today. He has noted bleeding from his gums when he brushes his teeth and denies spontaneous bleeding. Patient complains of itching with the rash on his anterior chest with scab formation. Patient complains of abdominal distension which he attributes to fluid accumulation. Appetite has been poor. He reports having 5 bowel movements a day with some blood on wiping and none in the stool. Denies fever chills or sweating. Denies being on chronic anticoagulation. Sister of liver cancer in 2000 PAST EGD/COLONOSCOPY: 08/03/20 : EGD and FLEX SIG WAS PERFORMED BY DR TRISTAN: PREOPERATIVE DIAGNOSIS: 1. Urgent esophagogastroduodenoscopy, colonoscopy, history of ulcerative colitis, no medications for at least 6 months, profound hypoalbuminemia. 2. Chronic liver disease with cirrhosis, anemia, and heme-positive stools. POSTOPERATIVE DIAGNOSIS: 1+ esophageal varices, distal esophagus; portal hypertensive gastropathy, colonoscopy, diffuse active oozing, ulcerative colitis to the splenic flexure. PROCEDURE PERFORMED: EGD with no biopsy; limited left colon to the splenic flexure, no biopsy. Prolonged INR PAST GI HISTORY BY REVIEW OF MEDICAL RECORDS: 08/03/21 Pt was seen by Dr Tristan during [place] [facility] 54 yo male who came in for evaluation due to increased leg swelling and some sensation of shortness of breath,etc. He admits he has a hx of cirrhosis which had been attributed to alcohol. His last routine medical care was in [place], [place] over a year ago. Some of the hx is obtained with (working @ [employer]He had put her on Facetime. Patient has been a heavy drinker. He has tapered away from nips to [employer]. They both admit that he has not been eating well. He has open areas on his legs that leak fluid--but have not been infected. thinks he may have had hx of ulcer disease--patient is vague about this. He does not have a local PCP,etc. Lives with who works as RN @ [employer] Non smoker Has been tapering his alcohol admits diet not great. ASSESSMENT & PLAN Patient with significant alcohol abuse history. He has been decreasing but has not stopped alcohol intake over the last couple weeks. He was Dx with cirrhosis in [place] over a year ago. He has been in this area for about a year but has not gotten a PCP. He had copy of labs from February 2019--on his phone--His albumin @ that time was 3.4. I did not see an H&H. Get EKG. Replace magnesium IV. Evaluate protein calorie nutrition Diet 2-4 gm sodium Monitor INR, liver profile daily: Consider abdominal pelvic CT for further eval of liver disease, etc. May need to tap ascites. Stool hemoccults. Cautious use diuretics with low albumin, daily weights Will follow. Review of Systems Constitutional: Constitutional: Denies fever(s), Denies headache(s) and Denies weight loss Eyes: Eyes: Denies eye discharge and Denies irritation ENT: Reports Normal hearing present, Denies dysphagia, Denies dizziness and Denies headache(s) Cardiovascular: Cardiovascular: Denies chest pain, Denies leg edema and Denies dyspnea on exertion Respiratory: Respiratory: Reports cough, Reports hemoptysis, Denies dyspnea on exertion and Denies wheezing Gastrointestinal: Gastrointestinal: Denies abdominal pain, Reports bloating, Denies change in bowel habits, Denies dysphagia, Denies heartburn and Reports diarrhea Genitourinary: Genitourinary: Denies dysuria Musculoskeletal: Musculoskeletal: Denies back pain and Denies arthralgias Integumentary/Breasts: Skin/Breast: Reports pruritus, Reports rash and Denies jaundice Neurologic: Reports Normal hearing present, Denies Abnormal speech present, Denies dizziness, Denies headache(s) and Denies seizure-like activity Psychiatric: Psychiatric: Denies anxiety, Denies depression and Denies panic attacks Endocrine: Endocrine: Denies cold intolerance, Denies flushing and Denies heat intolerance Hematologic/Lymphatic: Hematologic/Lymphatic: Denies easy bleeding and Denies easy bruising Allergic/Immunologic: Allergic/Immunologic: Denies wheezing PMFSH Past Medical History Medical History (Updated 02/08/21 @ 09:37 by Clarita Tristan MD) Advanced hepatic cirrhosis Alcohol abuse Anemia Coagulopathy Coagulopathy Fatty liver Hepatic encephalopathy Hypoalbuminemia 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 Ulcerative colitis Family History Family History Sister History of liver cancer Surgical History Surgical History History of esophagogastroduodenoscopy (EGD) Hx of colonoscopy Social History Social History (Updated 02/04/21 @ 14:59 by JUDY Weiss) Household Members: Spouse Housing: House Alcohol intake: current Alcohol intake frequency: does not drink Smoking Status: Never smoker service: No Current occupational status: unemployed Meds Allergies Allergy/AdvReac Type Severity Reaction Status Date / Time No Known Allergies Allergy Verified 02/04/21 14:55 [No Known Allergies*] Home Medications Medication Instructions Recorded Confirmed Type omeprazole 20 mg PO QAM 01/25/21 02/04/21 History spironolactone 50 mg PO DAILY 01/25/21 02/04/21 History Physical Exam Const: General: no acute distress and ill appearing Orientation/consciousness: patient oriented x3 Limitations: no limitations HENMT: Head: Yes normal to inspection Ears: hearing grossly normal bilaterally Mouth: Normal oral and palatal mucosa present Eyes: Sclerae: scleral abnormal (jaundice) Pupils: Equal, round and reactive pupils present Neck: Neck: Yes normal visual inspection Chest: Chest palpation & inspection: normal inspection of the chest Resp: Effort & Inspection: normal respiratory effort Auscultation: clear to auscultation bilaterally Cardio: Palpation: normal PMI Rate: regular rate Rhythm: regular rhythm Heart sounds: S1 normal heart sound present, S2 normal heart sound present and no murmurs GI: Inspection: Yes distended Palpation (GI): Soft to palpation, nontender and Hepatosplenomegaly present Auscultation: normal bowel sounds Rectal Exam - Male: Yes deferred Skin: Rashes: rashes noted (Papular rash on anterior chest with scab formation) Neuro: General: patient oriented x3, gait normal and moves all extremities Cranial nerves: Yes Equal, round and reactive pupils present and Yes Normal hearing present Speech: No Abnormal speech present Psych: Appearance: grossly normal Mental Status: mental status grossly normal Assessment and Plan (1) Coagulopathy: (2) Advanced hepatic cirrhosis: (3) Alcohol abuse: (4) Ulcerative colitis: Status: Acute (5) Hypoalbuminemia: Status: Acute 55 year old AA male with 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 Labs show improvement in LFT (since he quitted ETOH) and significant worsening of coaguloapthy with INR > 26 (increased from 2.2 on 11/27/20) D Dimer > 14, 000. Severe coagulopathy is likely due to Vitamin K deficiency from poor PO intake. RECOMMENDATIONS 1. Vitamin K 10 mg IV daily x 3 days and monitor INR 2. 2 units FFP 3. Monitor for bleeding From UTD: chronically impaired liver function in cirrhosis may be associated with multiple mechanism(s) of altered fibrinolysis: Increased levels of tissue plasminogen activator (tPA), which generates plasmin [23]. Decreased levels of alpha 2 antiplasmin, coagulation factor XIII [24], and thrombin-activatable fibrinolysis inhibitor (TAFI) [23]. Elevated levels of fibrin degradation products such as D-dimer. Fibrinolytic activity of ascitic fluid that may be delivered to the systemic circulation via the thoracic duct [25].
== END 2020-12-09 09:03 | disposition home or self-care (01) ==
LOC: HO.MRI 09:02
PROVIDERS: Visit Provider Internal Medicine Gastroenterology
DX: K51.90 Ulcerative colitis, unspecified, without complications (principal)
CPT/HCPCS: 72197; 74183; A9585

== ENCOUNTER 2020-12-10 10:15 | Outpatient (REF) | payer OTHER, SELFPAY ==
[2020-12-10 12:02] LABS: Alanine Aminotransferase 44 U/L (0-40); Alkaline Phosphatase 427 U/L (39-117); Anion Gap 11 (12-20); Aspartate Amino Transferase 128 U/L (5-37); Bilirubin Total 4.8 mg/dL (0.0-1.0); Blood Urea Nitrogen 4 mg/dL (9-16); Calcium 7.7 mg/dL (8.4-10.2); Carbon Dioxide 23 mmol/L (22-29); Chloride 104 mmol/L (96-108); Cholesterol 121 mg/dL; Estimated Glomerular Filt Rate > 60; Glucose Fasting 75 mg/dL (60-99); HDL Cholesterol 7 mg/dL; LDL Cholesterol Calculated 92 mg/dl; Potassium 3.3 mmol/l (3.3-5.1); Sodium 135 mmol/L (135-145); Total Protein 7.8 g/dL (6.5-8.0); Triglycerides 113 mg/dL
[2020-12-10 12:23] LABS: Prostate Specific Antigen Scr 2.95 ng/mL (<0.05-4.0); TSH reflex Free T4 1.61 mIU/mL (0.32-4.0)
[2020-12-10 12:36] LABS: Folate 10.7 ng/mL (> or = 4.0); Vitamin B12 1790 pg/mL (200-900)
== END 2020-12-10 10:16 | disposition home or self-care (01) ==
LOC: HO.HMGCLDS 10:15
PROVIDERS: PCP Nurse Practitioner Family; Visit Provider Nurse Practitioner Family
DX: Z00.00 Encounter for general adult medical examination without abnormal findings (principal); Z78.9 Other specified health status; Z12.5 Encounter for screening for malignant neoplasm of prostate
CPT/HCPCS: 36415; 80053; 80061; 82607; 82746; 84153; 84443

== ENCOUNTER 2020-12-14 11:37 | Inpatient (IN) | payer OTHER, SELFPAY ==
[2020-12-14] VITALS (12 sets, daily range): BP systolic 111–134; BP diastolic 70–81; PULSE 70–89; RESP 15–20; TEMP 36.6–37.2; O2SAT 98–100; BMI 36.5
--- NOTE | 2020-12-14 12:16 | ED_ITS ---
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 Patient is scheduled for colonoscopy next week last platelet count of 173K on 11/27 patient endoscopy done on 08/09 which showed grade 1 esophageal varices with erythema no active bleeding no rectal bleed or melena no gum bleed Related Data Home Medications Medication Instructions Recorded Confirmed gabapentin 100 mg capsule 100 mg PO DAILY 09/08/20 12/10/20 Previous Rx's Medication Instructions Recorded omeprazole 40 mg capsule,delayed 40 mg PO DAILY 30 Days #30 cap 09/29/20 release propranolol 10 mg tablet 10 mg PO BID 30 Days #60 tab 09/29/20 spironolactone 25 mg tablet 25 mg PO DAILY 30 Days #30 tab 09/29/20 mesalamine 1.2 gram tablet,delayed 4.8 g PO DAILY 30 Days #120 tab 10/02/20 release ferrous sulfate 325 mg (65 mg 325 mg PO TID 30 Days #90 tab 10/14/20 iron) tablet hydroxyzine HCl 25 mg tablet 25 mg PO BEDTIME #30 tab 10/21/20 bisacodyl 5 mg tablet,delayed 10 mg PO ONCE 1 Days #2 tab 12/10/20 release polyethylene glycol 3350 17 238 g PO ONCE 1 Days #238 g 12/10/20 gram/dose oral powder Allergies Allergy/AdvReac Type Severity Reaction Status Date / Time No Known Allergies Allergy Verified 12/10/20 09:59 [No Known Allergies*] Review of Systems 2 Review of Systems: Constitutional : No Weight loss, No Fever, No Chills ENT/Mouth : No sore throat, No Rhinorrhea Eyes: No Eye Pain, No Swelling Cardiovascular : No Chest Pain, no palpitations Respiratory : ++Cough, ++Sputum, no shortness of breath Gastrointestinal : no Nausea, No Vomiting, No Diarrhea, No abdominal Pain, no black stools abdominal distension+ Genitourinary : No Dysuria, No Urinary Frequency Musculoskeletal : No joint pain, No Myalgias, No Joint Swelling leg edema present Skin : No Skin Lesions, No rash Neuro : No Weakness, No Numbness, No Dizziness, No Headache Psych : No Anxiety/Panic, No Depression Heme/Lymph: No Bruising, No Lymphadenopathy Endocrine : No Polyuria, No Polydipsia All other systems reviewed and are negative [facility] Past Medical History Medical History Alcohol abuse Anemia Coagulopathy Fatty liver Fatty liver Hypoalbuminemia 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 Ulcerative colitis Surgical History History of esophagogastroduodenoscopy (EGD) Hx of colonoscopy Family History Family History Sister History of liver cancer Father No problems noted. Mother No problems noted. Daughter No problems noted. Son No problems noted. Social History Social History Household Members: Spouse Alcohol intake: former Smoking Status: Never smoker Use of substances other than those prescribed or required for medical reasons: No Advance Directives: No Advance Directives Information Provided: Yes service: No Current occupational status: unemployed Physical Exam Vital Signs: Vital Signs: Last Vital Signs Temp 98.5 F 12/14/20 15:23 Pulse 70 12/14/20 15:23 Resp 16 12/14/20 15:23 BP 111/70 12/14/20 15:23 Pulse Ox 98 12/14/20 15:23 Body Mass Index 36.5 Appearance: Alert. Oriented X3. No acute distress. Obese Eyes: Pupils equal, round and reactive to light. icterus + pallor+ ENT: Pharynx normal. No bleeding from the gums Neck: Normal inspection. Neck supple. CVS: Normal heart rate and rhythm. Pulses normal. Respiratory: No respiratory distress. Breath sounds normal. Abdomen: Soft and nontender. Bowel sounds are present, no mass palpable, no CVA tenderness ascites ++ rectal: Small amount of brown stool with fresh blood on the finger guaiac- positive Skin: Skin warm and dry. Normal skin color. Normal skin turgor. No rash no ecchymosis or petechia Extremities: Bilateral lower extremity edema. Neuro: Oriented X 3. No motor deficit. No sensory deficit. Course Course Course Narrative: Patient's labs reviewed PT INR was done 2 times to recheck showed INR more than 26 with PTT more than 200 with severe coagulopathy findings no petechia no bleeding from any other place rectal examination showed slight blood on the finger but patient does says that he has hemorrhoids and does have blood on wipes but has brown stool Reevaluation(s) Reevaluation #1: Call Dr. Fishman for input. Will give him 2 units of fresh frozen plasma and vitamin K check fibrillation level and D-dimer to rule out DIC admit to hospitalist service Time: 15:41 Reevaluation #2: Case discussed with Dr. Fishman pinion sorter and Dr. Rogers secondary art teacher advised to give 2 units of FFP vitamin K 10 units IV recheck the labs OK to admit at this time unless patient bleeding seriously Time: 16:00 Medical Decision Making [facility] Narrative Medical decision making narrative: Patient with chronic cirrhosis with coagulopathy previous platelet counts of 173 K INR was 2.2 chest x-ray without any acute change patient coughing the ER without any expectoration. Awaiting for repeat INR. Platelet counts are 142K Lab Data Lab results reviewed: Yes I reviewed the patient's lab results. Result diagrams: 12/14/20 13:34 12/14/20 13:34 Labs: Lab Results 12/14/20 12/14/20 12/14/20 Range/Units 13:34 13:34 13:34 WBC 5.1 (4.8-10.8) X10*3/uL RBC 3.03 L (4.60-5.80) X10*6/uL Hgb 9.6 L (14.0-18.0) g/dl Hct 28.2 L (42-52) % MCV 93.1 (80-98) fL MCH 31.7 (27.0-33.0) pg MCHC 34.0 (31.0-36.0) g/dl RDW 16.6 H (11.0-16.0) % Plt Count 142 L (160-400) X10*3/uL MPV 8.8 L (9.4-12.4) fL Immature Gran % (Auto) 0.2 (0.0-0.4) % Neut % (Auto) 56.9 (45-73) % Lymph % (Auto) 27.0 (20-40) % [place] % (Auto) 11.2 H (2-11) % Eos % (Auto) 4.1 H (0-4) % Baso % (Auto) 0.6 (0-2) % Lymph # (Auto) 1.4 (1.2-4.9) X10*3/uL [place] # (Auto) 0.6 (0.1-1.2) X10*3/uL Eos # (Auto) 0.2 (0.0-0.4) X10*3/uL Baso # (Auto) 0.0 (0.0-0.2) X10*3/uL Abs Immat Gran (auto) 0.01 (0.00-0.03) X10*3/uL Absolute Neuts (auto) 2.9 (2.0-8.3) X10*3/uL Absolute Nucleated RBC 0.000 (0.0-0.012) X10*3/uL Nucleated RBC % (auto) 0.0 (0.0-0.2) /100WBC PT Cancelled INR Cancelled APTT Cancelled Fibrinogen D-Dimer NG/ML Sodium 136 (135-145) mmol/L Potassium 3.6 (3.3-5.1) mmol/l Chloride 107 (96-108) mmol/L Carbon Dioxide 25 (22-29) mmol/L Anion Gap 8 L (12-20) BUN 6 L (9-16) mg/dL Creatinine 0.84 (0.5-1.4) mg/dL Estim Creat Clear Calc 120.2 Estimated GFR > 60 Random Glucose 160 H D (60-115) mg/dL Calcium 7.4 L (8.4-10.2) mg/dL Total Bilirubin 4.3 H (0.0-1.0) mg/dL Direct Bilirubin 3.0 H (0.0-0.5) mg/dL AST 98 H (5-37) U/L ALT 37 (0-40) U/L Alkaline Phosphatase 355 H (39-117) U/L Total Protein 6.7 (6.5-8.0) g/dL Albumin 1.7 L (3.5-5.0) g/dL Stool Occult Blood (NEG) Blood Type Antibody Screen 12/14/20 12/14/20 12/14/20 Range/Units 14:43 15:28 15:51 WBC (4.8-10.8) X10*3/uL RBC (4.60-5.80) X10*6/uL Hgb (14.0-18.0) g/dl Hct (42-52) % MCV (80-98) fL MCH (27.0-33.0) pg MCHC (31.0-36.0) g/dl RDW (11.0-16.0) % Plt Count (160-400) X10*3/uL MPV (9.4-12.4) fL Immature Gran % (Auto) (0.0-0.4) % Neut % (Auto) (45-73) % Lymph % (Auto) (20-40) % [place] % (Auto) (2-11) % Eos % (Auto) (0-4) % Baso % (Auto) (0-2) % Lymph # (Auto) (1.2-4.9) X10*3/uL [place] # (Auto) (0.1-1.2) X10*3/uL Eos # (Auto) (0.0-0.4) X10*3/uL Baso # (Auto) (0.0-0.2) X10*3/uL Abs Immat Gran (auto) (0.00-0.03) X10*3/uL Absolute Neuts (auto) (2.0-8.3) X10*3/uL Absolute Nucleated RBC (0.0-0.012) X10*3/uL Nucleated RBC % (auto) (0.0-0.2) /100WBC PT > 320.0 H D INR > 26.0 H* D APTT > 200.0 H* Fibrinogen TNP D-Dimer 85442 NG/ML Sodium (135-145) mmol/L Potassium (3.3-5.1) mmol/l Chloride (96-108) mmol/L Carbon Dioxide (22-29) mmol/L Anion Gap (12-20) BUN (9-16) mg/dL Creatinine (0.5-1.4) mg/dL Estim Creat Clear Calc Estimated GFR Random Glucose (60-115) mg/dL Calcium (8.4-10.2) mg/dL Total Bilirubin (0.0-1.0) mg/dL Direct Bilirubin (0.0-0.5) mg/dL AST (5-37) U/L ALT (0-40) U/L Alkaline Phosphatase (39-117) U/L Total Protein (6.5-8.0) g/dL Albumin (3.5-5.0) g/dL Stool Occult Blood POS (NEG) Blood Type O Positive Antibody Screen NEGATIVE Discharge Plan Discharge Prescriptions: No Action spironolactone 25 mg tablet 25 mg PO DAILY 30 Days Qty: 30 RF: 2 propranolol 10 mg tablet 10 mg PO BID 30 Days Qty: 60 RF: 2 omeprazole 40 mg capsule,delayed release(DR/EC) 40 mg PO DAILY 30 Days Qty: 30 RF: 2 mesalamine [Lialda] 1.2 gram tablet,delayed release (DR/EC) 4.8 g PO DAILY 30 Days Qty: 120 RF: 2 ferrous sulfate 325 mg (65 mg iron) tablet 325 mg PO TID 30 Days Qty: 90 RF: 2 bisacodyl [Dulcolax (bisacodyl)] 5 mg tablet,delayed release (DR/EC) 10 mg PO ONCE 1 Days Qty: 2 RF: 0 polyethylene glycol 3350 [Miralax] 17 gram/dose powder 238 g PO ONCE 1 Days Qty: 238 RF: 0 gabapentin 100 mg capsule 100 mg PO DAILY RF: 0 hydroxyzine HCl 25 mg tablet 25 mg PO BEDTIME Qty: 30 RF: 1
--- NOTE | 2020-12-14 12:28 | XR_ITS ---
EXAMINATION: XR CHEST CLINICAL INFORMATION: Chronic cough with hemoptysis. COMPARISON: Chest 11/03/2020 TECHNIQUE: 2 views of the chest were obtained. FINDINGS: The lungs are expanded and clear. The heart size and pulmonary vascularity is normal XR/XR chest 2V IMPRESSION: Unremarkable chest exam.
[2020-12-14] MEDS: guaiFEN/Codeine SF 200/20/10ML 10 ML LIQUID PO (13:35)
[2020-12-14 13:38] LABS: MANUAL DIFF FLAG NO
[2020-12-14 13:40] LABS: Basophils Percent Auto 0.6 % (0-2); Eosinophils Absolute Auto 0.2 X10*3/uL (0.0-0.4); Eosinophils Percent Auto 4.1 % (0-4); Hematocrit 28.2 % (42-52); Hemoglobin 9.6 g/dl (14.0-18.0); Imm Gran Abs Auto 0.01 X10*3/uL (0.00-0.03); Imm Gran Pct Auto 0.2 % (0.0-0.4); Lymphocytes Absolute Auto 1.4 X10*3/uL (1.2-4.9); Mean Corpuscular Hemoglobin 31.7 pg (27.0-33.0); Mean Corpuscular Volume 93.1 fL (80-98); Mean Platelet Volume 8.8 fL (9.4-12.4); Monocytes Absolute Auto 0.6 X10*3/uL (0.1-1.2); Monocytes Percent Auto 11.2 % (2-11); Neutrophils Absolute Auto 2.9 X10*3/uL (2.0-8.3); Neutrophils Percent Auto 56.9 % (45-73); Platelet Count 142 X10*3/uL (160-400); Red Blood Count 3.03 X10*6/uL (4.60-5.80); Red Cell Distribution Width 16.6 % (11.0-16.0); White Blood Count 5.1 X10*3/uL (4.8-10.8)
[2020-12-14 14:15] LABS: Alanine Aminotransferase 37 U/L (0-40); Albumin Level 1.7 g/dL (3.5-5.0); Alkaline Phosphatase 355 U/L (39-117); Anion Gap 8 (12-20); Aspartate Amino Transferase 98 U/L (5-37); Bilirubin Total 4.3 mg/dL (0.0-1.0); Blood Urea Nitrogen 6 mg/dL (9-16); Carbon Dioxide 25 mmol/L (22-29); Chloride 107 mmol/L (96-108); Creatinine Clr Calc Pharmacy 120.2; Estimated Glomerular Filt Rate > 60; Glucose Random 160 mg/dL (60-115); Potassium 3.6 mmol/l (3.3-5.1); Sodium 136 mmol/L (135-145); Total Protein 6.7 g/dL (6.5-8.0)
[2020-12-14 14:24] LABS: Calcium 7.4 mg/dL (8.4-10.2)
--- NOTE | 2020-12-14 14:48 | PC.NURSE ---
Light blue tube recollect by PCT. Awaiting lab results.
[2020-12-14 15:09] LABS: Prothrombin Time > 320.0 SEC (10.8-13.0)
[2020-12-14 15:13] LABS: INTERNATIONAL NORM RATIO > 26.0 (0.9-1.1); Partial Thromboplastin Time > 200.0 SEC (24.1-38.0)
[2020-12-14 15:36] LABS: OBS Int Ctl Valid YES; OBS1 POS (NEG)
[2020-12-14] MEDS: Pantoprazole Sodium 40 MG/10 ML VIAL 80 MG IVPUSH (16:24)
--- NOTE | 2020-12-14 16:26 | PC.NURSE ---
Labs obtained. Pt aware that he will likely be admitted. He was educated on the reasons for the admission. He is agreeable at this time. Awaiting vitamin K from pharmacy. No signs of abnormal bleeding at this time aside from slightly prolonged bleeding time with lab draws.
[2020-12-14 16:30] LABS: D Dimer 14215 NG/ML
[2020-12-14] MEDS: Phytonadione (Vit K1) 10 MG in 0.9 % Sodium Chloride 50 ML 51 MG IV (17:10)
--- NOTE | 2020-12-14 17:39 | PM.IMHP ---
History of Present Illness Date of Service: 12/14/20 <CINDI Alarcon - Last Filed: 12/14/20 18:47> Chief Complaint: Blood tinged phlegm <CINDI Alarcon - Last Filed: 12/14/20 18:47> This is a 55-year-old male with history of alcoholic liver cirrhosis who presents today because he noticed he has been having blood in his phlegm. The past few days he has noticed bleeding from his nose, chapped lips and with coughing. Also has had blood on the toilet paper after going to the bathroom but this is normal for him due to his history of altered of colitis. He also reports some right sided abdominal pain. He reports a cough for the past 6 months but blood tinged phlegm is new. This prompted him to come to the hospital. His labs were at his baseline with the exception of his INR was significantly elevated >26. IV vitamin K and FFP were ordered and the decision was made to admit him to the hospital for further management. He denies any alcohol use since August. <CINDI Alarcon - Last Filed: 12/14/20 18:47> Review of Systems Review of Systems: Yes all other systems are reviewed and are negative <CINDI Alarcon - Last Filed: 12/14/20 18:47> Constitutional: Constitutional: Denies chills and Denies fever(s) <CINDI Alarcon - Last Filed: 12/14/20 18:47> Cardiovascular: Cardiovascular: Denies chest pain <CINDI Alarcon - Last Filed: 12/14/20 18:47> Respiratory: Respiratory: Denies cough <CINDI Alarcon - Last Filed: 12/14/20 18:47> [facility] Medical History: Medical History Alcohol abuse Anemia Coagulopathy Fatty liver Hypoalbuminemia 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 Ulcerative colitis <CINDI Alarcon Last Filed: 12/14/20 18:47> Functional capacity: independent ambulation <CINDI Alarcon Last Filed: 12/14/20 18:47> Family History: Family History Sister History of liver cancer Father No problems noted. Mother No problems noted. Daughter No problems noted. Son No problems noted. <CINDI Alarcon - Last Filed: 12/14/20 18:47> Surgical History: Surgical History History of esophagogastroduodenoscopy (EGD) Hx of colonoscopy <CINDI Alarcon - Last Filed: 12/14/20 18:47> Social History: Social History Household Members: Spouse Housing: House Alcohol intake: former Smoking Status: Never smoker service: No Current occupational status: unemployed <CINDI Alarcon - Last Filed: 12/14/20 18:47> Meds Allergies/Adverse reactions: Allergies Allergy/AdvReac Type Severity Reaction Status Date / Time No Known Allergies Allergy Verified 12/10/20 09:59 [No Known Allergies*] <CINDI Alarcon - Last Filed: 12/14/20 18:47> Physical Exam Vital Signs and Narrative: Vital Signs: Last Vital Signs Temp 98.5 F 12/14/20 15:23 Pulse 70 12/14/20 15:23 Resp 16 12/14/20 15:23 BP 111/70 12/14/20 15:23 Pulse Ox 98 12/14/20 15:23 Body Mass Index 36.5 <CINDI Alarcon - Last Filed: 12/14/20 18:47> Const: Nutritional Appearance: well nourished <CINDI Alarcon - Last Filed: 12/14/20 18:47> Orientation/consciousness: patient oriented x3 <CINDI Alarcon - Last Filed: 12/14/20 18:47> HENMT: Head: Yes normocephalic and Yes atraumatic <CINDI Alarcon Last Filed: 12/14/20 18:47> Eyes: Sclerae: sclerae normal <CINDI Alarcon Last Filed: 12/14/20 18:47> Chest: Chest palpation & inspection: normal inspection of the chest <CINDI Alarcon - Last Filed: 12/14/20 18:47> Resp: Effort & Inspection: normal respiratory effort and no respiratory distress <CINDI Alarcon - Last Filed: 12/14/20 18:47> Cardio: Rate: regular rate <CINDI Alarcon - Last Filed: 12/14/20 18:47> Rhythm: regular rhythm <CINDI Alarcon - Last Filed: 12/14/20 18:47> GI: Other: tenderness ruq, soft <CINDI Alarcon - Last Filed: 12/14/20 18:47> Skin: General skin exam: no rashes or lesions noted <CINDI Alarcon - Last Filed: 12/14/20 18:47> Neuro: General: patient oriented x3 <CINDI Alarcon - Last Filed: 12/14/20 18:47> Cranial nerves: Yes CN's II-XII intact bilaterally and Yes Bilaterally intact EOM present <CINDI Alarcon - Last Filed: 12/14/20 18:47> Extrem: Other: edema lower extremities R>L <CINDI Alarcon - Last Filed: 12/14/20 18:47> General: Yes normal to inspection <CINDI Alarcon - Last Filed: 12/14/20 18:47> Results Labs CBC and Chem 7: : 12/18/20 05:36 12/18/20 05:36 <CINDI Alarcon - Last Filed: 12/14/20 18:47> Labs: Laboratory Results - last 24 hr 12/14/20 12/14/20 12/14/20 13:34 13:34 13:34 MCV 93.1 MCH 31.7 MCHC 34.0 RDW 16.6 H Plt Count 142 L MPV 8.8 L Immature Gran % (Auto) 0.2 Neut % (Auto) 56.9 Lymph % (Auto) 27.0 [place] % (Auto) 11.2 H Eos % (Auto) 4.1 H Baso % (Auto) 0.6 Lymph # (Auto) 1.4 [place] # (Auto) 0.6 Eos # (Auto) 0.2 Baso # (Auto) 0.0 Abs Immat Gran (auto) 0.01 Absolute Neuts (auto) 2.9 Absolute Nucleated RBC 0.000 Nucleated RBC % (auto) 0.0 PT Cancelled INR Cancelled APTT Cancelled Fibrinogen D-Dimer Anion Gap 8 L Estim Creat Clear Calc 120.2 Estimated GFR > 60 Random Glucose 160 H D Calcium 7.4 L Total Bilirubin 4.3 H Direct Bilirubin 3.0 H AST 98 H ALT 37 Alkaline Phosphatase 355 H Total Protein 6.7 Albumin 1.7 L Stool Occult Blood Blood Type Antibody Screen 12/14/20 12/14/20 12/14/20 14:43 15:28 15:51 MCV MCH MCHC RDW Plt Count MPV Immature Gran % (Auto) Neut % (Auto) Lymph % (Auto) [place] % (Auto) Eos % (Auto) Baso % (Auto) Lymph # (Auto) [place] # (Auto) Eos # (Auto) Baso # (Auto) Abs Immat Gran (auto) Absolute Neuts (auto) Absolute Nucleated RBC Nucleated RBC % (auto) PT > 320.0 H D INR > 26.0 H* D APTT > 200.0 H* Fibrinogen TNP D-Dimer 59140 Anion Gap Estim Creat Clear Calc Estimated GFR Random Glucose Calcium Total Bilirubin Direct Bilirubin AST ALT Alkaline Phosphatase Total Protein Albumin Stool Occult Blood POS Blood Type O Positive Antibody Screen NEGATIVE <CINDI Alarcon - Last Filed: 12/14/20 18:47> Imaging Radiologist's Impressions: Impressions Chest X-Ray 12/14/20 12:28 IMPRESSION: Unremarkable chest exam. <CINDI Alarcon - Last Filed: 12/14/20 18:47> Assessment and Plan (1) Advanced hepatic cirrhosis: Status: Acute <CINDI Alarcon - Last Filed: 12/14/20 18:47> (2) Coagulopathy: Status: Acute <CINDI Alarcon - Last Filed: 12/14/20 18:47> This is a history of alcoholic liver cirrhosis, ulcerative colitis who presents to the emergency department with, this is found to have coagulopathy with INR greater than 26 Coagulopathy INR >26, ddimer >26307 in setting of ESLD, poor PO intake IV vitamin K, FFP ordered in the ED -follow INR, CBC -GI/hematology consults ESLD with coagulopathy, portal HTN, thrombocytopenia, grade 1 esophageal varices c/ ascites -follow liver function -LFTs at baseline -continue propranolol, spironolactone anemia. chronic H/H at baseline heme + stool. h/o UC, frequently sees blood on toilet paper -follow CBC -GI evaluation h/o etoh abuse no etoh since august UC -continue mesalamine dvt ppx - chemoprophylaxis CI due to elevated INR Code status - full code This case was discussed with Dr. Caceres <CINDI Alarcon - Last Filed: 12/14/20 18:47>
[2020-12-14 18:38] LABS: COVID-19 Test Negative (Negative); IDNOW Serial# 9DD0AD1C
--- NOTE | 2020-12-14 18:38 | PC.NURSE ---
Vitamin K given. First unit of FFP transfusing.
--- NOTE | 2020-12-14 18:54 | PM.EVENT ---
Event Note Date of Service: 12/15/20 Event Note: Patient came with abnormal labs: Elevated PT INR Patient says that he had some gum blood oozing with brushing , also had some cough with some blood tinged clear phlegm the other day. Also complaining of some easy bruising Denies any chest pain or shortness of breath or any fever or chills or nausea vomiting or abdominal pain. He says he quit alcohol in last August 2020, denies any smoking or recreational drug use His hepatitis profile was negative last year He in addition patient also has history of ulcerative colitis. Physical exam: Cvs: rrr, [id number] , no murmur res: clear to auscultation ,no rhonchii or wheezing abd: no rebound or guarding ,nt, bs present. ext pulses present , no cyanosis neuro: axo3 , nonfocal. Assessment and plan: Discussed with the ED physician: Coagulopathy probably related to liver disease: Elevated D-dimers and INR Discussed with the Hematology and GI: Plan is to transfuse FFP and give vitamin K. then cbc and pt//inr in am
[2020-12-14 20:07] LABS: Ammonia 31 umol/L (13-55)
--- NOTE | 2020-12-14 23:48 | PC.NURSE ---
RECEIVED CALL FROM [facility] REGARDING MIRALAX. SENT MESSAGE TO DR GUNTER.
[2020-12-14] MEDS: Propranolol HCL 10 MG TABLET PO (23:57)
[2020-12-14] MEDS: hydrOXYzine HCL 25 MG TABLET PO (23:57)
--- NOTE | 2020-12-14 23:58 | PC.NURSE ---
MEDICATED CHARTED. SITTING UP IN BED. NO APPARENT DISTRESS.
[2020-12-15] MEDS: guaiFENesin 200 MG/10 ML 10 ML LIQUID PO (03:00)
[2020-12-15] MEDS: 0.9 % Sodium Chloride Flush 3 ML SYRINGE IVFLUSH ×3 (03:00→16:45)
[2020-12-15 04:15] VITALS: BP 111/72; PULSE 63; RESP 14; O2SAT 100
[2020-12-15 07:53] LABS: MANUAL DIFF FLAG NO
[2020-12-15 07:57] LABS: Basophils Percent Auto 0.6 % (0-2); Eosinophils Absolute Auto 0.2 X10*3/uL (0.0-0.4); Eosinophils Percent Auto 6.2 % (0-4); Hematocrit 25.5 % (42-52); Hemoglobin 8.7 g/dl (14.0-18.0); Imm Gran Abs Auto 0.01 X10*3/uL (0.00-0.03); Imm Gran Pct Auto 0.3 % (0.0-0.4); Lymphocytes Absolute Auto 1.2 X10*3/uL (1.2-4.9); Lymphocytes Percent Auto 33.2 % (20-40); Mean Corpuscular HGB Conc 34.1 g/dl (31.0-36.0); Mean Corpuscular Hemoglobin 31.8 pg (27.0-33.0); Mean Corpuscular Volume 93.1 fL (80-98); Mean Platelet Volume 8.8 fL (9.4-12.4); Monocytes Absolute Auto 0.4 X10*3/uL (0.1-1.2); Monocytes Percent Auto 11.8 % (2-11); Neutrophils Absolute Auto 1.7 X10*3/uL (2.0-8.3); Neutrophils Percent Auto 47.9 % (45-73); Platelet Count 124 X10*3/uL (160-400); Red Blood Count 2.74 X10*6/uL (4.60-5.80); Red Cell Distribution Width 16.3 % (11.0-16.0); White Blood Count 3.6 X10*3/uL (4.8-10.8)
[2020-12-15 08:28] LABS: Alanine Aminotransferase 29 U/L (0-40); Albumin Level 1.6 g/dL (3.5-5.0); Alkaline Phosphatase 275 U/L (39-117); Aspartate Amino Transferase 70 U/L (5-37); Bilirubin Direct 2.7 mg/dL (0.0-0.5); Bilirubin Total 4.5 mg/dL (0.0-1.0); Blood Urea Nitrogen 5 mg/dL (9-16); Calcium 7.8 mg/dL (8.4-10.2); Creatinine Clr Calc Pharmacy 126.2; Estimated Glomerular Filt Rate > 60; Glucose Random 72 mg/dL (60-115); Total Protein 5.7 g/dL (6.5-8.0)
[2020-12-15 08:44] LABS: Anion Gap 8 (12-20); Carbon Dioxide 25 mmol/L (22-29); Chloride 108 mmol/L (96-108); Potassium 3.9 mmol/l (3.3-5.1); Sodium 137 mmol/L (135-145)
[2020-12-15 08:53] LABS: INTERNATIONAL NORM RATIO 2.7 (0.9-1.1)
[2020-12-15] MEDS: Ferrous Sulfate 324 MG TABLET.DR PO ×3 (09:24→20:36)
[2020-12-15] MEDS: Omeprazole 40 MG CAPSULE.DR PO ×2 (09:24→16:44)
[2020-12-15 09:25] VITALS: BP 96/60; PULSE 68
[2020-12-15 09:26] VITALS: BP 96/60; PULSE 68; RESP 16; O2SAT 97
[2020-12-15] MEDS: Mesalamine 400 MG CAP.DRTAB. 4800 MG PO (09:26)
[2020-12-15] MEDS: Phytonadione (Vit K1) Oral 10 MG/ML AMPUL PO (11:15)
[2020-12-15] MEDS: Albumin Human 25 % 100 ML IV ×2 (11:15→16:42)
--- NOTE | 2020-12-15 11:40 | P.PNIM_ITS ---
Subjective Subjective Date of Service: 12/16/20 Interval History: Elevated INR, gum oozing intermittent at home , no new episode , he said blood in stool -? realted to ulcerative colitis. Review of Systems Patient denies any chest pain or shortness of breath or abdominal pain or nausea or vomiting Says some blood in the stool question related to ulcerative colitis. No fevers Physical Exam Vital Signs: Vital Signs: Last Vital Signs Temp 97.8 F 12/14/20 23:57 Pulse 68 12/15/20 09:26 Resp 16 12/15/20 09:26 BP 96/60 12/15/20 09:26 Pulse Ox 97 12/15/20 09:26 Body Mass Index 36.5 Physical exam: Constitutional: Not in acute distress. Cvs: rrr, [id number] , no murmur res: clear to auscultation ,no rhonchii or wheezing abd: no rebound or guarding ,nt, bs present. ext pulses present , no cyanosis neuro: axo3 , nonfocal. Objective Data Current Medications Generic Name Dose Route Start Last Admin Trade Name Danielq PRN Reason Stop Dose Admin Docusate Sodium 100 mg 12/14/20 23:08 Docusate Sodium 100 Mg Capsule PO DAILY PRN Constipation Ferrous Sulfate 324 mg 12/15/20 09:00 12/15/20 09:24 Ferrous Sulfate 324 Mg Tablet. PO 324 mg TID BIANCA Administration Guaifenesin 10 ml 12/15/20 02:45 12/15/20 03:00 Guaifenesin 200 Mg/10 Ml 10 Ml Liquid PO 10 ml Q6H PRN Administration Cough Hydroxyzine HCl 25 mg 12/14/20 23:08 12/14/20 23:57 Hydroxyzine Hcl 25 Mg Tablet PO 25 mg BEDTIME BIANCA Administration Albumin Human 100 mls @ 100 mls/hr 12/15/20 11:00 12/15/20 11:15 Kedbumin 25 % IV 12/15/20 17:59 100 mls/hr Q6H BIANCA Administration Mesalamine 4,800 mg 12/15/20 09:00 12/15/20 09:26 Mesalamine 400 Mg Cap.Adi. PO 4,800 mg DAILY BIANCA Administration Omeprazole 40 mg 12/15/20 08:30 12/15/20 09:24 Omeprazole 40 Mg Capsule. PO 40 mg BIDPC BIANCA Administration Ondansetron HCl 4 mg 12/14/20 23:08 Ondansetron Hcl 4 Mg/2 Ml Vial IVPUSH Q8H PRN Nausea and Vomiting Pharmacy Consult 1 each 12/14/20 16:58 Consult Rx Perform Med Rec MISCELLANE ONCE PRN Consult order Propranolol HCl 10 mg 12/14/20 23:08 12/15/20 09:25 Propranolol Hcl 10 Mg Tablet PO Not Given BID [facility] Protocol Sodium Chloride 3 ml 12/15/20 00:00 12/15/20 09:24 0.9 % Sodium Chloride Flush 3 Ml Syringe IVFLUSH 3 ml QSHIFT BIANCA Administration Spironolactone 25 mg 12/15/20 09:00 12/15/20 09:25 Spironolactone 25 Mg Tablet PO Not Given DAILY BIANCA Protocol Labs CBC & Chem 7: 12/16/20 05:24 12/16/20 05:24 Assessment and Plan (1) Hypoalbuminemia: Status: Acute (2) Alcohol abuse: Status: Acute (3) Coagulopathy: Status: Acute (4) Advanced hepatic cirrhosis: Status: Acute (5) Anemia: Status: Acute Assessment and Plan: 55 year old AA male with 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 Labs show improvement in LFT (since he quitted ETOH) and significant worsening of coaguloapthy with INR > 26 (increased from 2.2 on 11/27/20). 1.Coagulopathy-probable related to liver disease, INR >26, ddimer >05667 poor PO intake Given vitamin K, FFP- INR improved to 2.7 h/h 8.7 /25.5 2.Liver disease with coagulopathy, portal HTN, thrombocytopenia, grade 1 esophageal varices c/ ascites Has ascites continue propranolol, spironolactone Blood pressure borderline will hold paracentesis for today, give albumin. 3.anemia. chronic H/H at baseline heme + stool. h/o UC, frequently sees blood on toilet paper h/h :slightly trend down 8.7 /25.5 GI evaluation noted -avoid tap for now due to boderline blood pressure . 4.h/o etoh abuse no etoh since august 24.UC-continue mesalamine dvt ppx - chemoprophylaxis CI due to elevated INR
--- NOTE | 2020-12-15 12:00 | PC.NURSE ---
REPORT GIVEN TO [employer]. PT AMBULATORY & INDEPENDENT. DISTENDED ABDOMEN, DENIES ANY PAIN AT THIS TIME. ALBUMIN INFUSED. ORDERS RECEIVED TO HOLD OFF ON PARACENTESIS UNTIL SEEN BY GI, PER MD ADKINS.
--- NOTE | 2020-12-15 12:01 | MHC.CM.PN ---
pt lives c his . he reports he is independent in his care. he will have his provide transport at dc. pt denies the need for vna at dc. dc plan is home no svcs. cm to cont. to follow.
[2020-12-15 12:46] VITALS: BP 114/70; PULSE 60; RESP 18; TEMP 36.7; O2SAT 100
[2020-12-15 13:27] VITALS: BMI 38.0
[2020-12-15] MEDS: Flu Vacc QS2020-21(6mos up)/PF 0.5 ML SYRINGE IM (14:18)
[2020-12-15 14:31] LABS: C Reactive Protein 1.58 mg/dL (< or = 0.50); Gamma Glutamyl Transpeptidase 224 U/L (11-51); Lactate Dehydrogenase 268 U/L (118-273); Magnesium 1.6 mg/dL (1.6-2.6)
--- NOTE | 2020-12-15 15:39 | P.PNGI_ITS ---
Subjective Subjective Date of Service: 12/16/20 Interval History: Patient known to me. Seen this PM. He assures me that he has not drank any alcohol in 2 months now. He has tried to add some meat to his diet. It did not agree with him. He then started eating fruit and water. He denies any recent addition of any anticoag to his meds. He is still using his Mesalamine. He does not feel that he is bleeding that much. Not like in the Fall. He continues to experience abdominal distention and fullness. He has an intermittent dry cough that has been ongoing for the last ? 6 months. Physical Exam Vital Signs: Vital Signs: Last Vital Signs Temp 98.1 F 12/15/20 12:46 Pulse 60 12/15/20 12:46 Resp 18 12/15/20 12:46 BP 114/70 12/15/20 12:46 Pulse Ox 100 12/15/20 12:46 Body Mass Index 38.0 Const: General: cooperative Nutritional Appearance: obese and Edematous Orientation/consciousness: patient oriented x3 Resp: Effort & Inspection: normal respiratory effort, able to speak in complete sentences, no cough, no pursed lip breathing and no respiratory distress Auscultation: clear to auscultation bilaterally and diminished lung sounds Cardio: Rate: regular rate Rhythm: regular rhythm GI: Inspection: Yes distended and Yes obesity Palpation (GI): no masses and Ascites present Auscultation: normal bowel sounds Rectal Exam - Male: Yes deferred Neuro: General: patient oriented x3 Extrem: General: Yes edema and Yes venous stasis dermatitis Objective Data Labs CBC & Chem 7: 12/16/20 05:24 12/16/20 05:24 Labs: Laboratory Results - last 24 hr 12/14/20 12/14/20 12/14/20 14:43 15:51 18:17 WBC RBC Hgb Hct MCV MCH MCHC RDW Plt Count MPV Immature Gran % (Auto) Neut % (Auto) Lymph % (Auto) [place] % (Auto) Eos % (Auto) Baso % (Auto) Lymph # (Auto) [place] # (Auto) Eos # (Auto) Baso # (Auto) Abs Immat Gran (auto) Absolute Neuts (auto) Absolute Nucleated RBC Nucleated RBC % (auto) PT INR Fibrinogen TNP D-Dimer 85961 Sodium Potassium Chloride Carbon Dioxide Anion Gap BUN Creatinine Estim Creat Clear Calc Estimated GFR Random Glucose Calcium Magnesium Total Bilirubin Direct Bilirubin GGT AST ALT Alkaline Phosphatase Ammonia Lactate Dehydrogenase Total Creatine Kinase C-Reactive Protein Total Protein Albumin COVID-19 (DAELA) Negative COVID-19 [facility] Com See Note Blood Type O Positive Antibody Screen NEGATIVE 12/14/20 12/15/20 12/15/20 19:43 07:42 07:42 WBC 3.6 L RBC 2.74 L Hgb 8.7 L Hct 25.5 L MCV 93.1 MCH 31.8 MCHC 34.1 RDW 16.3 H Plt Count 124 L MPV 8.8 L Immature Gran % (Auto) 0.3 Neut % (Auto) 47.9 Lymph % (Auto) 33.2 [place] % (Auto) 11.8 H Eos % (Auto) 6.2 H Baso % (Auto) 0.6 Lymph # (Auto) 1.2 [place] # (Auto) 0.4 Eos # (Auto) 0.2 Baso # (Auto) 0.0 Abs Immat Gran (auto) 0.01 Absolute Neuts (auto) 1.7 L Absolute Nucleated RBC 0.000 Nucleated RBC % (auto) 0.0 PT 32.0 H D INR 2.7 H Fibrinogen D-Dimer Sodium Potassium Chloride Carbon Dioxide Anion Gap BUN Creatinine Estim Creat Clear Calc Estimated GFR Random Glucose Calcium Magnesium Total Bilirubin Direct Bilirubin GGT AST ALT Alkaline Phosphatase Ammonia 31 Lactate Dehydrogenase Total Creatine Kinase C-Reactive Protein Total Protein Albumin COVID-19 (ADELA) COVID-19 [facility] Com Blood Type Antibody Screen 12/15/20 07:42 WBC RBC Hgb Hct MCV MCH MCHC RDW Plt Count MPV Immature Gran % (Auto) Neut % (Auto) Lymph % (Auto) [place] % (Auto) Eos % (Auto) Baso % (Auto) Lymph # (Auto) [place] # (Auto) Eos # (Auto) Baso # (Auto) Abs Immat Gran (auto) Absolute Neuts (auto) Absolute Nucleated RBC Nucleated RBC % (auto) PT INR Fibrinogen D-Dimer Sodium 137 Potassium 3.9 Chloride 108 Carbon Dioxide 25 Anion Gap 8 L BUN 5 L Creatinine 0.80 Estim Creat Clear Calc 126.2 Estimated GFR > 60 Random Glucose 72 D Calcium 7.8 L Magnesium 1.6 Total Bilirubin 4.5 H Direct Bilirubin 2.7 H GGT 224 H AST 70 H ALT 29 Alkaline Phosphatase 275 H D Ammonia Lactate Dehydrogenase 268 Total Creatine Kinase 152 C-Reactive Protein 1.58 H Total Protein 5.7 L Albumin 1.6 L COVID-19 (ADELA) COVID-19 Clin Com Blood Type Antibody Screen Progress Note: A&P Assessment and plan (1) Advanced hepatic cirrhosis: Status: Acute Assessment and Plan: This is on basis of excessive alcohol intake by hx and last admission. Current sober for ? 2 months. (2) Coagulopathy: Status: Acute Assessment and Plan: Most recently exacerbated by his diet of fruit and water. His baseline had been holding around 2.0 INR. Need to see what hematology consult has to say about coagulopathy. Would consider parenteral steroids? Particularly in setting of hx UC. (3) Hypoalbuminemia: Status: Acute Assessment and Plan: Albumin has declined--it never really improved for any length of time. need to assess the extent of the inflamatory mucosa in the colon. If INR stays correc dory could do EGD and colo on . Do large volume paracentesis withIV Albumin on 12/16. Check cytology and cult. (4) Anemia: Status: Acute Assessment and Plan: see above, some may be nutritional. (5) Ulcerative colitis: Status: Acute Assessment and Plan: Need to know degree of activity. Rydal when patient is stabilized appropriately to tolerate. In meantime could consider adding steroids monitoring electrolytes, gluconse etc. Like Solumedrol 40mg BID IV(?) Fall Risk Details Current Medications: Current Medications Generic Name Dose Route Start Last Admin Trade Name Freq PRN Reason Stop Dose Admin Docusate Sodium 100 mg 12/14/20 23:08 Docusate Sodium 100 Mg Capsule PO DAILY PRN Constipation Ferrous Sulfate 324 mg 12/15/20 09:00 12/15/20 14:19 Ferrous Sulfate 324 Mg Tablet. PO 324 mg TID BIANCA Administration Guaifenesin 10 ml 12/15/20 02:45 12/15/20 03:00 Guaifenesin 200 Mg/10 Ml 10 Ml Liquid PO 10 ml Q6H PRN Administration Cough Hydroxyzine HCl 25 mg 12/14/20 23:08 12/14/20 23:57 Hydroxyzine Hcl 25 Mg Tablet PO 25 mg BEDTIME BIANCA Administration Albumin Human 100 mls @ 100 mls/hr 12/15/20 11:00 12/15/20 12:40 Kedbumin 25 % IV 12/15/20 17:59 Infused Q6H BIANCA Infusion Mesalamine 4,800 mg 12/15/20 09:00 12/15/20 09:26 Mesalamine 400 Mg Cap.Drtab. PO 4,800 mg DAILY BIANCA Administration Omeprazole 40 mg 12/15/20 08:30 12/15/20 09:24 Omeprazole 40 Mg Capsule.Dr PO 40 mg BIDPC BIANCA Administration Ondansetron HCl 4 mg 12/14/20 23:08 Ondansetron Hcl 4 Mg/2 Ml Vial IVPUSH Q8H PRN Nausea and Vomiting Pharmacy Consult 1 each 12/14/20 16:58 Consult Rx Perform Med Rec MISCELLANE ONCE PRN Consult order Propranolol HCl 10 mg 12/14/20 23:08 12/15/20 09:25 Propranolol Hcl 10 Mg Tablet PO Not Given BID BIANCA Protocol Sodium Chloride 3 ml 12/15/20 00:00 12/15/20 09:24 0.9 % Sodium Chloride Flush 3 Ml Syringe IVFLUSH 3 ml QSHIFT BIANCA Administration Spironolactone 25 mg 12/15/20 09:00 12/15/20 09:25 Spironolactone 25 Mg Tablet PO Not Given DAILY BIANCA Protocol Time Spent With Patient Time: Total time spent is greater than 50% in coordination of care (as documented) at patient's floor/unit and/or counseling patient: Time with patient: 15 - 24 minutes
[2020-12-15 16:00] VITALS: BP 108/63; PULSE 70; RESP 20; TEMP 36.7; O2SAT 98
[2020-12-15 19:35] VITALS: BP 105/57; PULSE 70; TEMP 37.1
[2020-12-15] MEDS: hydrOXYzine HCL 25 MG TABLET PO (20:36)
[2020-12-15] MEDS: Propranolol HCL 10 MG TABLET PO (20:36)
[2020-12-16] VITALS (16 sets, daily range): BP systolic 92–119; BP diastolic 45–67; PULSE 59–85; RESP 16–26; TEMP 36.2–37.5; O2SAT 94–100; BMI 38.0
[2020-12-16] MEDS: 0.9 % Sodium Chloride Flush 3 ML SYRINGE IVFLUSH ×3 (00:30→17:08)
[2020-12-16 05:38] LABS: Hematocrit 24.8 % (42-52); Hemoglobin 8.3 g/dl (14.0-18.0)
[2020-12-16 06:14] LABS: Alanine Aminotransferase 23 U/L (0-40); Alkaline Phosphatase 257 U/L (39-117); Anion Gap 9 (12-20); Aspartate Amino Transferase 59 U/L (5-37); Bilirubin Direct 2.5 mg/dL (0.0-0.5); Bilirubin Total 3.9 mg/dL (0.0-1.0); Blood Urea Nitrogen 5 mg/dL (9-16); Calcium 7.5 mg/dL (8.4-10.2); Carbon Dioxide 24 mmol/L (22-29); Chloride 108 mmol/L (96-108); Creatinine Clr Calc Pharmacy 114.6; Estimated Glomerular Filt Rate > 60; Glucose Random 86 mg/dL (60-115); Potassium 3.9 mmol/l (3.3-5.1); Sodium 137 mmol/L (135-145); Total Protein 5.8 g/dL (6.5-8.0)
[2020-12-16 09:17] LABS: INTERNATIONAL NORM RATIO > 26.0 (0.9-1.1); Prothrombin Time > 320.0 SEC (10.8-13.0)
--- NOTE | 2020-12-16 09:28 | P.CDIC_ITS ---
CDI Concurrent Query Service Date: 12/16/20 Documentation Clarification: Please clarify if you are treating a proba ble/suspected/likely or confirmed: Acute Blood Loss Anemia Other Anemia, please specify type Provider Response: Other Other Diagnosis: acute on ch blood loss anemia anemia sec to ulcerative colitis PLEASE DO NOT DELETE/MODIFY EXISTING CONTENT Additional information is needed in order to code to the highest accuracy and appropriate Severity of Illness (SOI). Please clarify the information noted below in your progress notes and discharge summary. Risk Factors/Clinical Indicators/Treatments 55 year old male admitted with bloating, coughing up blood PMH: Alcohol Cirrhosis with Ascites, Grade 1 Esophageal Varices, Alcohol Abuse, Anemia, Ulcerative Colitis, Coagulopathy H/H 9.6/28.2, slight trend down 8.7/25.5 Stool OB + treated with 2 unit FFP and Vitamin K Frequent blood on toilet paper and bleeding gums on brushing teeth CDS: Vonda Munoz RN Contact Number: [phone] Please Review the information above and exercise your independent professional judgment in responding to the query. If you concur, pleas document in the PROGRESS NOTES and DISCHARGE SUMMARY. If you do not agree with the query, please document in the query above. THIS QUERY IS PART OF THE PERMANENT MEDICAL RECORD
[2020-12-16] MEDS: Phytonadione (Vit K1) 10 MG in 0.9 % Sodium Chloride 50 ML 51 MG IV (10:41)
[2020-12-16] MEDS: 0.9 % Sodium Chloride 1,000 ML 250 ML IVCONT (10:41)
--- NOTE | 2020-12-16 10:51 | PM.EVENT ---
Coagulopathy. Elevated PT/PTT, elevated D-dimer, fibrinogen level unable to be determined because of elevated D-dimer. He also has low albumin and liver disease, probable diagnosis is impaired synthetic function of factors and fibrinogen affecting common pathway for coagulation. He appears to have hyper fibrinolysis causing elevation in D-dimer. Tests needed urgently are-thrombin time, mixing study for PT and PTT, factor levels of factor 2, factor 5 and factor 10. Administer cryoprecipitate 1st followed by FFP every 6 hours. Monitor PT/PTT 3 hours after administering cryoprecipitate and FFP.
[2020-12-16] MEDS: Albumin Human 25 % 100 ML IV ×2 (11:41→14:51)
[2020-12-16 12:01] LABS: INTERNATIONAL NORM RATIO > 26.0 (0.9-1.1); Prothrombin Time > 320.0 SEC (10.8-13.0)
--- NOTE | 2020-12-16 13:42 | PM.HEMONCCN ---
Subjective - Subjective Chief complaint: Hemoptysis Patient: new to practice Consult date: 12/16/20 Requesting Physician: Dr. Caceres. [facility] HPI - Consult Narrative Reason for consult: Coagulopathy Narrative: Yaya Howell is a 55 year old male who presented to the hospital on 12/14/2020 with complaints of cough associated with bloody expect duration as well as bleeding from his gums. He also notice blood after his bowel movements although he has a chronic history of ulcerative colitis and always has diarrhea. He and his state that he has not been doing well for several months but in the last 4-5 days before admission he noticed a worsening cough. No fever or chills. He also reports that he had developed ascites and had a paracentesis a few weeks ago. He was supposed to have a colonoscopy next month. He was diagnosed with ulcerative colitis around 2002 and liver cirrhosis also around early 1999. He does admit to chronic alcoholism, he has been trying to quit. His last bout of heavy drinking was in September 2020. At this time he denies any chest pain, cough or shortness of breath. His abdomen is distended. He denies hematochezia or melena. 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 Mother No problems noted. Daughter No problems noted. Son No problems noted. Surgical History: Surgical History (Last Reviewed 12/14/20 @ 18:08 by CINDI Alarcon) History of esophagogastroduodenoscopy (EGD) Hx of colonoscopy Social History: Social History (Last Reviewed 12/14/20 @ 18:09 by CINDI Alarcon) Living Situation History: Household Members: Spouse Household Members Other:: 2 Housing: House Do you presently have visiting nurse or other home services: No Alcohol History: Alcohol intake: former Alcohol History Details: Alcohol intake frequency: holiday/special occasion Tobacco History: Smoking Status: Never smoker Substance Use History: Use of substances other than those prescribed or required for medical reasons: No Currently Displaying Signs/Symptoms of Drug Intoxication Withdrawal: No Domestic Abuse History: Have you been hit, kicked, punched, or otherwise hurt by someone within the past year? If so, by whom?: No Do you feel safe in your current relationship?: Yes Is there a partner from a previous relationship who is making you feel unsafe now?: No Are you made to feel afraid or neglected: No Healthcare Practices: Spiritual Healthcare Practices: Patient states none Jehovah'S Witness Healthcare Practices: Patient states none Cultural Healthcare Practices: Patient states none Advance Directives: Advance Directives: No Advance Directives Information Provided: Yes Homicidal Assessment: Do you have thoughts of harming others: None Do you have a plan to hurt others: No Plan Nutrition Assessment: Recently lost weight without trying: No Eating poorly because of decreased appetite: No Nutrition Risks: No Nutritional Risk Poor oral hygiene: No Occupation Assessmet: service: No Current occupational status: unemployed Smoking status: Never smoker Home Medications and Allergies Current Medications: Current Medications Generic Name Dose Route Start Last Admin Trade Name Freq PRN Reason Stop Dose Admin Docusate Sodium 100 mg 12/14/20 23:08 Docusate Sodium 100 Mg Capsule PO DAILY PRN Constipation Ferrous Sulfate 324 mg 12/15/20 09:00 12/16/20 09:35 Ferrous Sulfate 324 Mg Tablet. PO Not Given TID BIANCA Guaifenesin 10 ml 12/15/20 02:45 12/15/20 03:00 Guaifenesin 200 Mg/10 Ml 10 Ml Liquid PO 10 ml Q6H PRN Administration Cough Hydroxyzine HCl 25 mg 12/14/20 23:08 12/15/20 20:36 Hydroxyzine Hcl 25 Mg Tablet PO 25 mg BEDTIME BIANCA Administration Mesalamine 4,800 mg 12/15/20 09:00 12/16/20 09:35 Mesalamine 400 Mg Cap. PO Not Given DAILY BIANCA Omeprazole 40 mg 12/15/20 08:30 12/16/20 09:35 Omeprazole 40 Mg Capsule. PO Not Given BIDPC BIANCA Ondansetron HCl 4 mg 12/14/20 23:08 Ondansetron Hcl 4 Mg/2 Ml Vial IVPUSH Q8H PRN Nausea and Vomiting Pharmacy Consult 1 each 12/14/20 16:58 Consult Rx Perform Med Rec MISCELLANE ONCE PRN Consult order Propranolol HCl 10 mg 12/14/20 23:08 12/16/20 09:35 Propranolol Hcl 10 Mg Tablet PO Not Given BID [facility] Protocol Sodium Chloride 3 ml 12/15/20 00:00 12/16/20 09:34 0.9 % Sodium Chloride Flush 3 Ml Syringe IVFLUSH Not Given QSHIFT [facility] Spironolactone 25 mg 12/15/20 09:00 12/16/20 09:35 Spironolactone 25 Mg Tablet PO Not Given DAILY [facility] Protocol Allergies Allergy/AdvReac Type Severity Reaction Status Date / Time No Known Allergies Allergy Verified 12/10/20 09:59 [No Known Allergies*] Physical Exam Vital signs: Vital Signs Temp 97.9 F 12/16/20 13:40 Pulse 72 12/16/20 13:40 Resp 20 12/16/20 13:40 BP 102/53 L 12/16/20 13:40 Pulse Ox 98 12/16/20 11:07 Intake & Output 12/15/20 12/16/20 12/16/20 18:59 06:59 18:59 Intake Total 580 / 800 220 / 800 301 / 301 Output Total 300 / 450 150 / 450 Balance 280 / 350 70 / 350 301 / 301 Urine Output (Average ml/kg/hr) 0.22 0.11 0.11 Intake: Intake, Oral Amount 480 / 600 120 / 600 Intake (Blood Product) Amount 0 / 0 Thawed Cryoprecipitate (E3591) 0 / 0 Unit [id number] Intake, IV Amount 100 / 200 100 / 200 301 / 301 Albumin Human 25 % 100 ml @ 100 100 / 200 100 / 200 mls/hr IV Q6H [facility] Rx#: [id number] Phytonadione (Vit K1) 10 mg In 51 / 51 0.9 % Sodium Chloride 50 ml @ 51 mls/hr IV ONCE ONE Rx#: [id number] 0.9 % Sodium Chloride 1,000 ml 250 / 250 @ 250 mls/hr IVCONT .Q4H ONE Rx #:[id number] Output: Output, Urine Amount 300 / 450 150 / 450 Other: Dinner % Eaten 75% Number of Unmeasured Voids 1 Number of Bowel Movements 1 1 Urine Urinal Urine Color Tea Last Bowel Movement 12/14/20 12/16/20 12/16/20 Stool Bedside Commode Bedside Commode Bedside Commode Stool Amount Large Moderate Stool Color Brown Brown Stool Consistency Soft Loose Formed Weight 113.3 kg 113.3 kg Weight 113.3 kg - Constitutional Present: no acute distress - Routine HEENT Exam Head: Present: normal inspection Eye: Present: EOMI - Routine Neck Exam Absent: lymphadenopathy - Routine Chest/Breast/Axilla Exam Axillae: Absent: lymphadenopathy - Routine Respiratory Exam Absent: respiratory distress - Routine Cardiovascular Exam Cardiovascular: Present: S1, S2 - Routine Abdominal Exam Present: distended, hypoactive bowel sounds - Routine Extremities Exam Present: pedal edema - Routine Skin Exam Present: intact - Routine Neurological Exam Present: oriented X3 Hem/Onc Consult Result - Labs CBC & Chem 7: 12/16/20 05:24 12/16/20 05:24 Labs: Short CBC 12/16/20 Range/Units 05:24 Hgb 8.3 L (14.0-18.0) g/dl Hct 24.8 L (42-52) % BMP 12/16/20 05:24 Sodium 137 Potassium 3.9 Chloride 108 Carbon Dioxide 24 BUN 5 L Creatinine 0.90 Calcium 7.5 L Cardiac Enzymes 12/15/20 Range/Units 07:42 Total Creatine Kinase 152 (38-174) U/L Liver Function 12/15/20 12/16/20 Range/Units 07:42 05:24 Total Bilirubin 3.9 H (0.0-1.0) mg/dL Direct Bilirubin 2.5 H (0.0-0.5) mg/dL GGT 224 H (11-51) U/L AST 59 H (5-37) U/L ALT 23 (0-40) U/L Alkaline Phosphatase 257 H (39-117) U/L Albumin 2.0 L D (3.5-5.0) g/dL Assessment and Plan (1) Coagulopathy Status: Acute 1. This is a 55-year-old male with advanced liver cirrhosis with ascites and hypoalbuminemia, chronic ulcerative colitis presenting with severe coagulopathy. He has elevation in both PT, PTT and high D-dimer over 12,000. Fibrinogen levels cannot be determined because of extremely high levels of D-dimer. Most common cause of prolongation of both PT and APTT is liver disease and severe vitamin K deficiency. He is not on any anticoagulants. He has had chronic coagulopathy dating back to July 2020, it was never this severe. Deficiency of common pathway clotting factors such as prothrombin, fibrinogen, factor 5 and factor 10 can also cause prolongation of both PT and PTT. Some of these deficiencies could be secondary or acquired because of liver disease. He has been ruled out for COVID-19 infection. It is unclear as to what triggered this acute worsening in his chronic mild coagulopathy. He had paracentesis performed on 11/27/2020 with removal of 1.3 L of cloudy yellow fluid. G stain and cultures thus far are negative. DIC or disseminated intravascular coagulation can also cause similar picture. He has no obvious signs/symptoms of infection. Thrombin time can help determine if he has hypofibrinogenemia or dysfibrinogenemia. Acquired inhibitors of any of the above-mentioned factors can also cause a similar picture. Mixing studies to see if he has an inhibitor has been ordered. He has had correction of PT/PTT with FFP and vitamin K but that was only brief since half life of FFP is very short. Administer cryoprecipitate and FFP every 6 hours until coagulopathy is corrected and etiology becomes clear. Thank you, I will follow with you.
[2020-12-16] MEDS: Ferrous Sulfate 324 MG TABLET.DR PO (14:06)
[2020-12-16] MEDS: guaiFENesin 200 MG/10 ML 10 ML LIQUID PO (14:56)
[2020-12-16] MEDS: Omeprazole 40 MG CAPSULE.DR PO (17:08)
--- NOTE | 2020-12-16 17:28 | HO.PM.IMPN ---
Subjective Subjective Date of Service: 12/16/20 Interval History: Anemia, coagulopathy Review of Systems Patient denies any chest pain or shortness of breath or abdominal pain or fever or chills or any new weakness or numbness. Denies any blood in the stool currently was says that he had some ? Blood due to ulcerative colitis on and off at home. Physical Exam Vital Signs: Vital Signs: Last Vital Signs Temp 98.5 F 12/16/20 16:00 Pulse 71 12/16/20 16:00 Resp 19 12/16/20 16:00 BP 118/60 12/16/20 16:00 Pulse Ox 99 12/16/20 16:00 Body Mass Index 38.0 Physical exam: Constitutional: Not in acute distress HEENT: Eyes: No pain or discharge Cvs: rrr, [id number] , no murmur res: clear to auscultation ,no rhonchii or wheezing abd: no rebound or guarding ,nt, bs present. ext pulses present , no cyanosis neuro: axo3 , nonfocal. Objective Data Current Medications Generic Name Dose Route Start Last Admin Trade Name Freq PRN Reason Stop Dose Admin Docusate Sodium 100 mg 12/14/20 23:08 Docusate Sodium 100 Mg Capsule PO DAILY PRN Constipation Ferrous Sulfate 324 mg 12/15/20 09:00 12/16/20 14:06 Ferrous Sulfate 324 Mg Tablet. PO 324 mg TID BIANCA Administration Guaifenesin 10 ml 12/15/20 02:45 12/16/20 14:56 Guaifenesin 200 Mg/10 Ml 10 Ml Liquid PO 10 ml Q6H PRN Administration Cough Hydroxyzine HCl 25 mg 12/14/20 23:08 12/15/20 20:36 Hydroxyzine Hcl 25 Mg Tablet PO 25 mg BEDTIME BIANCA Administration Mesalamine 4,800 mg 12/15/20 09:00 12/16/20 09:35 Mesalamine 400 Mg Cap.Drtab. PO Not Given DAILY BIANCA Omeprazole 40 mg 12/15/20 08:30 12/16/20 17:08 Omeprazole 40 Mg Capsule. PO 40 mg BIDPC BIANCA Administration Ondansetron HCl 4 mg 12/14/20 23:08 Ondansetron Hcl 4 Mg/2 Ml Vial IVPUSH Q8H PRN Nausea and Vomiting Pharmacy Consult 1 each 12/14/20 16:58 Consult Rx Perform Med Rec MISCELLANE ONCE PRN Consult order Propranolol HCl 10 mg 12/14/20 23:08 12/16/20 09:35 Propranolol Hcl 10 Mg Tablet PO Not Given BID [facility] Protocol Sodium Chloride 3 ml 12/15/20 00:00 12/16/20 17:08 0.9 % Sodium Chloride Flush 3 Ml Syringe IVFLUSH 3 ml QSHIFT BIANCA Administration Spironolactone 25 mg 12/15/20 09:00 12/16/20 09:35 Spironolactone 25 Mg Tablet PO Not Given DAILY [facility] Protocol Labs CBC & Chem 7: 12/16/20 05:24 12/16/20 05:24 Assessment and Plan (1) Advanced hepatic cirrhosis: Status: Acute (2) Coagulopathy: Status: Acute (3) Hypoalbuminemia: Status: Acute (4) Alcohol abuse: Status: Acute (5) Anemia: Status: Acute Assessment and Plan: 55 year old AA male with 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 Labs show improvement in LFT (since he quitted ETOH) and significant worsening of coaguloapthy with INR > 26 (increased from 2.2 on 11/27/20). 1.Coagulopathy-probable related to liver disease, Initial INR >26, ddimer >65134 On admission patient received FFP and foot IV vitamin K: INR improved yesterday but again today INR is 26 and PT: 320 Patient denies any gingival bleeding or any blood in the stool today GI and hematology following Patient will need- cryoprecipitatex1 and FFP q.6 hour, PT PTT Q 3 hour after 1st dose of FFP. 2.Liver disease with coagulopathy, portal HTN, thrombocytopenia, grade 1 esophageal varices c/ ascites Has ascites Hold propranolol, spironolactone due to borderline blood pressure, we will give 250 mL normal saline as well as albumin and monitor blood pressure closely. 3.anemia-Anemia probably acute on chronic blood loss: Had a gingival oozing for sometime as per the patient at home, also has ulcerative colitis which might be contributing. H/H at baseline heme + stool. h/o UC, frequently sees blood on toilet paper h/h 8.3 /24.8 which seems near to his baseline no active bleeding currently-will continue to monitor. GI evaluation noted -avoid tap for now due to boderline blood pressure . 4.h/o etoh abuse:no etoh since august 5.UC-continue mesalamine dvt ppx - chemoprophylaxis CI due to elevated INR
--- NOTE | 2020-12-16 17:52 | PC.NURSE ---
This morning patient's SBP trending in the low 90s to high 90s. Notified Dr. Caceres. Morning diuretic held per MD. Administered ordered 250 ml NS and 2 doses of Albumin. SBP improved to one teens. Received critical values of: PT >320 and INR >26.[address] Caceres. Administered ordered Vit K IV and one unit of FFPs and Cryoprecipitate. Per patient to have PT/PTT drawn at 1730 and is to receive one unit of FFPs every 6 hours. Orders entered. Hematology and GI consulted. Parenthesis on hold per .
[2020-12-16 21:22] LABS: INTERNATIONAL NORM RATIO 2.1 (0.9-1.1); INTERNATIONAL NORM RATIO 2.2 (0.9-1.1); Prothrombin Time 25.2 SEC (10.8-13.0); Prothrombin Time 26.5 SEC (10.8-13.0)
[2020-12-16 21:27] LABS: Partial Thromboplastin Time 63.5 SEC (24.1-38.0)
[2020-12-16 21:29] LABS: Partial Thromboplastin Time 63.1 SEC (24.1-38.0)
--- NOTE | 2020-12-16 22:46 | PM.GIPN ---
Subjective Subjective Date of Service: 12/16/20 Interval History: Asked to see by Dr Caceres re; marked elevated INR, APTT he has not had further hemoptysis, no gingival bleeding, or epistaxis denies abdominal pain appetite is fair INR and APTT again elevated ++ after short lived improvement with FFp, Vit K Physical Exam Vital Signs: Vital Signs: Last Vital Signs Temp 99.2 F 12/16/20 22:25 Pulse 85 12/16/20 22:25 Resp 25 H 12/16/20 22:25 BP 107/56 L 12/16/20 22:25 Pulse Ox 100 12/16/20 20:09 Body Mass Index 38.0 Const: General: cooperative Nutritional Appearance: well nourished, obese and Edematous Orientation/consciousness: patient oriented x3 HENMT: Head: Yes normocephalic and Yes atraumatic Eyes: Sclerae: sclerae normal Chest: Chest palpation & inspection: normal inspection of the chest Resp: Effort & Inspection: normal respiratory effort, able to speak in complete sentences, no cough, no pursed lip breathing and no respiratory distress Auscultation: clear to auscultation bilaterally and diminished lung sounds Cardio: Rate: regular rate Rhythm: regular rhythm GI: Other: tenderness ruq, soft Inspection: Yes distended and Yes obesity Palpation (GI): no masses and Ascites present Auscultation: normal bowel sounds Rectal Exam - Male: Yes deferred Skin: General skin exam: no rashes or lesions noted Neuro: General: patient oriented x3 Cranial nerves: Yes CN's II-XII intact bilaterally and Yes Bilaterally intact EOM present Extrem: Other: edema lower extremities R>L General: Yes normal to inspection, Yes edema and Yes venous stasis dermatitis Objective Data Labs CBC & Chem 7: 12/16/20 05:24 12/16/20 05:24 Labs: Laboratory Results - last 24 hr 12/14/20 12/16/20 12/16/20 15:51 05:24 05:24 Hgb 8.3 L Hct 24.8 L PT > 320.0 H D INR > 26.0 H* D APTT Sodium Potassium Chloride Carbon Dioxide Anion Gap BUN Creatinine Estim Creat Clear Calc Estimated GFR Random Glucose Calcium Total Bilirubin Direct Bilirubin AST ALT Alkaline Phosphatase Total Protein Albumin Blood Type O Positive Antibody Screen NEGATIVE 12/16/20 12/16/20 12/16/20 05:24 11:25 18:50 Hgb Hct PT > 320.0 H INR > 26.0 H* APTT 71.0 H* D Sodium 137 Potassium 3.9 Chloride 108 Carbon Dioxide 24 Anion Gap 9 L BUN 5 L Creatinine 0.90 Estim Creat Clear Calc 114.6 Estimated GFR > 60 Random Glucose 86 Calcium 7.5 L Total Bilirubin 3.9 H Direct Bilirubin 2.5 H AST 59 H ALT 23 Alkaline Phosphatase 257 H Total Protein 5.8 L Albumin 2.0 L D Blood Type Antibody Screen 12/16/20 12/16/20 20:51 20:51 Hgb Hct PT 26.5 H D 25.2 H INR 2.2 H 2.1 H APTT 63.5 H* 63.1 H* Sodium Potassium Chloride Carbon Dioxide Anion Gap BUN Creatinine Estim Creat Clear Calc Estimated GFR Random Glucose Calcium Total Bilirubin Direct Bilirubin AST ALT Alkaline Phosphatase Total Protein Albumin Blood Type Antibody Screen Progress Note: A&P Assessment and plan (1) Advanced hepatic cirrhosis: Status: Acute (2) Coagulopathy: Status: Acute Assessment and Plan: 1/ Coagulopathy prob from mix of liver disease, malnutrition and cholestasis. Additionally he has UC, which can be associated with PSC and fat roxy vitamin malabsorption. Seen by Dr Malave and also being worked up for acquired factor inhibitors 2/ No evidence of acute on chronic liver failure, he is mentating fine, bili is fairly stable, so I do not believe his PT/INR is reflecting a failure of liver synthetic function only, at this time point and there is a another process going on as mentioned above PLAN; 1/ cont with FFP per heme recs, cont vit K 10 mg for 5 d in total 2/ await hematology w/u 3/ check micronutrients and fat roxy vitamin labs Fall Risk Details Current Medications: Current Medications Generic Name Dose Route Start Last Admin Trade Name Freq PRN Reason Stop Dose Admin Docusate Sodium 100 mg 12/14/20 23:08 Docusate Sodium 100 Mg Capsule PO DAILY PRN Constipation Ferrous Sulfate 324 mg 12/15/20 09:00 12/16/20 14:06 Ferrous Sulfate 324 Mg Tablet. PO 324 mg TID BIANCA Administration Guaifenesin 10 ml 12/15/20 02:45 12/16/20 14:56 Guaifenesin 200 Mg/10 Ml 10 Ml Liquid PO 10 ml Q6H PRN Administration Cough Hydroxyzine HCl 25 mg 12/14/20 23:08 12/15/20 20:36 Hydroxyzine Hcl 25 Mg Tablet PO 25 mg BEDTIME BIANCA Administration Mesalamine 4,800 mg 12/15/20 09:00 12/16/20 09:35 Mesalamine 400 Mg Cap.Drtab. PO Not Given DAILY BIANCA Omeprazole 40 mg 12/15/20 08:30 12/16/20 17:08 Omeprazole 40 Mg Capsule.Dr PO 40 mg BIDPC BIANCA Administration Ondansetron HCl 4 mg 12/14/20 23:08 Ondansetron Hcl 4 Mg/2 Ml Vial IVPUSH Q8H PRN Nausea and Vomiting Pharmacy Consult 1 each 12/14/20 16:58 Consult Rx Perform Med Rec MISCELLANE ONCE PRN Consult order Propranolol HCl 10 mg 12/14/20 23:08 12/16/20 09:35 Propranolol Hcl 10 Mg Tablet PO Not Given BID BIAN[facility] Protocol Sodium Chloride 3 ml 12/15/20 00:00 12/16/20 17:08 0.9 % Sodium Chloride Flush 3 Ml Syringe IVFLUSH 3 ml QSHIFT BIANCA Administration Spironolactone 25 mg 12/15/20 09:00 12/16/20 09:35 Spironolactone 25 Mg Tablet PO Not Given DAILY BIAN[facility] Protocol Time Spent With Patient Time: Total time spent is greater than 50% in coordination of care (as documented) at patient's floor/unit and/or counseling patient: Time with patient: 15 - 24 minutes
[2020-12-17] VITALS (37 sets, daily range): BP systolic 92–141; BP diastolic 47–80; PULSE 55–76; RESP 14–20; TEMP 36.1–37.2; O2SAT 97–100
[2020-12-17] MEDS: Propranolol HCL 10 MG TABLET PO ×2 (00:17→20:25)
[2020-12-17] MEDS: hydrOXYzine HCL 25 MG TABLET PO ×2 (00:18→20:24)
[2020-12-17] MEDS: Ferrous Sulfate 324 MG TABLET.DR PO ×2 (00:18→20:24)
[2020-12-17] MEDS: 0.9 % Sodium Chloride Flush 3 ML SYRINGE IVFLUSH ×3 (00:19→21:23)
[2020-12-17 02:53] LABS: INTERNATIONAL NORM RATIO 1.9 (0.9-1.1); Prothrombin Time 22.6 SEC (10.8-13.0)
[2020-12-17 02:56] LABS: Partial Thromboplastin Time 58.2 SEC (24.1-38.0)
--- NOTE | 2020-12-17 03:25 | MHC.PIE ---
P.PT 22.6 / INR 1.[address] DAVIS NOTIFIED OF ABOVE PT/INR RESULT AND CLARIFICATION OF ORDER TO GIVE CRYO AND FFP DUE AT 5 AM.MD STATES TO HOLD CRYO AND FFP FOR TONIGHT.NEW ORDER PLACED BY FOR PT/INR AT 6 AM.MD STATE WILL DISCUSS WITH AM MD.NO S/S BLEED. E.WILL CONT TO MONITOR.
[2020-12-17 06:27] LABS: MANUAL DIFF FLAG NO
[2020-12-17 06:46] LABS: Basophils Percent Auto 0.8 % (0-2); Eosinophils Absolute Auto 0.2 X10*3/uL (0.0-0.4); Eosinophils Percent Auto 4.8 % (0-4); Hematocrit 22.5 % (42-52); Hemoglobin 7.6 g/dl (14.0-18.0); Imm Gran Abs Auto 0.01 X10*3/uL (0.00-0.03); Imm Gran Pct Auto 0.3 % (0.0-0.4); Lymphocytes Absolute Auto 1.4 X10*3/uL (1.2-4.9); Lymphocytes Percent Auto 34.5 % (20-40); Mean Corpuscular HGB Conc 33.8 g/dl (31.0-36.0); Mean Corpuscular Hemoglobin 31.5 pg (27.0-33.0); Mean Corpuscular Volume 93.4 fL (80-98); Mean Platelet Volume 9.7 fL (9.4-12.4); Monocytes Absolute Auto 0.5 X10*3/uL (0.1-1.2); Monocytes Percent Auto 12.7 % (2-11); Neutrophils Absolute Auto 1.9 X10*3/uL (2.0-8.3); Neutrophils Percent Auto 46.9 % (45-73); Platelet Count 120 X10*3/uL (160-400); Red Blood Count 2.41 X10*6/uL (4.60-5.80); Red Cell Distribution Width 15.7 % (11.0-16.0); White Blood Count 3.9 X10*3/uL (4.8-10.8)
[2020-12-17 07:01] LABS: Prothrombin Time 24.4 SEC (10.8-13.0)
--- NOTE | 2020-12-17 07:29 | PM.EVENT ---
Event Note Date of Service: 12/17/20 Event Note: With INR down will try to add a SSE enema prepped limited colo to assess the activity of the UC. This is not optiminal but given the current situation imperative to know activity of his disease to reassess management. Will add later day on urgent basis. NPO ordered.
[2020-12-17 08:33] LABS: Partial Thromboplastin Time 60.6 SEC (24.1-38.0)
[2020-12-17] MEDS: Acetaminophen 325 MG TABLET 650 MG PO (12:16)
--- NOTE | 2020-12-17 13:25 | HO.ANESPROP2 ---
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 Mother No problems noted. Daughter No problems noted. Son No problems noted. Surgical History Surgical History History of esophagogastroduodenoscopy (EGD) Hx of colonoscopy Social History Social History Household Members: Spouse Household Members Other:: 2 Housing: House Do you presently have visiting nurse or other home services: No Alcohol intake: former Smoking Status: Never smoker Use of substances other than those prescribed or required for medical reasons: No Currently Displaying Signs/Symptoms of Drug Intoxication Withdrawal: No Have you been hit, kicked, punched, or otherwise hurt by someone within the past year? If so, by whom?: No Do you feel safe in your current relationship?: Yes Is there a partner from a previous relationship who is making you feel unsafe now?: No Are you made to feel afraid or neglected: No Spiritual Healthcare Practices: Patient states none Oriental Orthodox Healthcare Practices: Patient states none Cultural Healthcare Practices: Patient states none Advance Directives: No Advance Directives Information Provided: Yes Do you have thoughts of harming others: None Do you have a plan to hurt others: No Plan Recently lost weight without trying: No service: No Current occupational status: unemployed Meds Allergies Allergy/AdvReac Type Severity Reaction Status Date / Time No Known Allergies Allergy Verified 12/10/20 09:59 [No Known Allergies*] Exam Airway Mallampati Class: II TM Dist: >3cm Neck ROM: Full Loose/Missing/Broken Teeth: Yes (Several missing) Heart: rrr Lungs: nl Assessment and Plan Assessment Anesthesia Assessment: Anesthesia Plan Discussed and Chart Reviewed Final Anesthetic Review NPO: Yes ASA Class: III Final Preanesthetic Review: No Changes in Pt Med Stat, Meds/Allgs Chart Reviewed, Consent Obtained/Reviewed and Anes Risks/Benef Reviewed Patient Risk: High Procedure Risk: Low Anesthetic Plan Anesthetic Plan: MAC: Disposition: Standard PACU
--- NOTE | 2020-12-17 14:21 | PC.NURSE ---
Addendum entered by Carissa Mccollum RN 12/17/20 14:36: TYLENOL ADMINISTERED PRIOR TO BLOOD TRANSFUSION PER DOCTOR ADKINS. Original Note: PATIENT HAS ORDERS FOR CRYOPRECIPITATE, FRESH FROZEN PLASMA, AND RBC. CRYO STARTED AT 1012 ENDED AT 1029. FFP STARTED AT 1052 AND TAKEN DOWN AT 1138. ASKED DOCTOR ADKINS FOR CLARIFICATION ON THE NEW CRYO AND FFP ORDER. MD STATES TO INFUSE RBC PRIOR TO CRYO AND FFP. NEW ORDER FOR VITAMIN K AT 1205 MD STATES OK TO HOLD OFF ON GIVING MEDICATION UNTIL INFUSIONS ARE COMPLETE. RBC STARTED AT 1241 ENDED AT 1413. PATIENT TAKEN DOWN TO PRE-OP AT 1350, RN TRANSPORTED PATIENT WITH PRE-OP STAFF.
--- NOTE | 2020-12-17 14:39 | MHC.SHP ---
Pre-Procedural Eval Section A The patient is an INPATIENT: Yes Changes since office visit: Yes New Medical Problems and Yes Patient answered all questions The History & Physical has been completed within 30 days and I have reviewed it.: Yes Section B Chief Complaint: coagulopathy Allergies: Allergies Allergy/AdvReac Type Severity Reaction Status Date / Time No Known Allergies Allergy Verified 12/10/20 09:59 [No Known Allergies*] Plan I have reviewed the history and physical and performed a pertinent physical examination on my patient. No changes have occurred unless specified.
--- NOTE | 2020-12-17 14:49 | PC.NURSE ---
FFP INFUSING PATENTLY NO S/SX OF TRANSFUSION REACTION. LUNGS CLEAR.
--- NOTE | 2020-12-17 15:15 | PC.NURSE ---
SECOND FFP UNIT BEING INFUSING. NO COMPLAINTS RESTING COMFORTABLY AND NO S/SX OF TRANSFUSION REACTION. LUNGS CLEAR. Y. NO S/SX OF TRANSFUSION REACTION. lungs clesr
--- NOTE | 2020-12-17 16:08 | HO.PM.IMPN ---
Subjective Subjective Date of Service: 12/18/20 Interval History: Coagulopathy question probably related to liver disease, ulcerative colitis Review of Systems Patient denies any chest pain or shortness of breath or abdominal pain or weakness or numbness. Denies any overnight blood in the stool or any vomiting. No fever Physical Exam Vital Signs: Vital Signs: Last Vital Signs Temp 97.6 F 12/17/20 15:41 Pulse 61 12/17/20 15:41 Resp 16 12/17/20 15:41 BP 119/70 12/17/20 15:41 Pulse Ox 100 12/17/20 14:05 Body Mass Index 38.0 Physical exam: Constitutional: Not in acute distress, lying comfortably in the bed. Cvs: rrr, [id number] , no murmur res: clear to auscultation ,no rhonchii or wheezing abd: no rebound or guarding ,nt, bs present. ext pulses present , no cyanosis neuro: axo3 , nonfocal. Objective Data Current Medications Generic Name Dose Route Start Last Admin Trade Name Danielq PRN Reason Stop Dose Admin Docusate Sodium 100 mg 12/14/20 23:08 Docusate Sodium 100 Mg Capsule PO DAILY PRN Constipation Ferrous Sulfate 324 mg 12/15/20 09:00 12/17/20 09:30 Ferrous Sulfate 324 Mg Tablet. PO Not Given TID BIANCA Guaifenesin 10 ml 12/15/20 02:45 12/16/20 14:56 Guaifenesin 200 Mg/10 Ml 10 Ml Liquid PO 10 ml Q6H PRN Administration Cough Hydroxyzine HCl 25 mg 12/14/20 23:08 12/17/20 00:18 Hydroxyzine Hcl 25 Mg Tablet PO 25 mg BEDTIME BIANCA Administration Mesalamine 4,800 mg 12/15/20 09:00 12/17/20 09:30 Mesalamine 400 Mg Cap.Drtab. PO Not Given DAILY BIANCA Naloxone HCl 0.04 mg 12/17/20 15:42 Naloxone Hcl 0.4 Mg/Ml Vial IVPUSH Q5M PRN Respiratory Rate < 8 Omeprazole 40 mg 12/15/20 08:30 12/17/20 09:30 Omeprazole 40 Mg Capsule. PO Not Given BIDPC BIANCA Ondansetron HCl 4 mg 12/14/20 23:08 Ondansetron Hcl 4 Mg/2 Ml Vial IVPUSH Q8H PRN Nausea and Vomiting Pharmacy Consult 1 each 12/14/20 16:58 Consult Rx Perform Med Rec MISCELLANE ONCE PRN Consult order Propranolol HCl 10 mg 12/14/20 23:08 12/17/20 09:30 Propranolol Hcl 10 Mg Tablet PO Not Given BID [facility] Protocol Sodium Chloride 3 ml 12/15/20 00:00 12/17/20 09:31 0.9 % Sodium Chloride Flush 3 Ml Syringe IVFLUSH 3 ml QSHIFT BIANCA Administration Spironolactone 25 mg 12/15/20 09:00 12/17/20 09:30 Spironolactone 25 Mg Tablet PO Not Given DAILY [facility] Protocol Labs CBC & Chem 7: 12/18/20 05:36 12/18/20 05:36 Assessment and Plan (1) Advanced hepatic cirrhosis: Status: Acute (2) Coagulopathy: Status: Acute (3) Hypoalbuminemia: Status: Acute (4) Alcohol abuse: Status: Acute (5) Anemia: Status: Acute Assessment and Plan: 55 year old AA male with 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 Labs show improvement in LFT (since he quitted ETOH) and significant worsening of coaguloapthy with INR > 26 (increased from 2.2 on 11/27/20). 1.Coagulopathy-probable related to liver disease, Initial INR >26, ddimer >65369 On admission patient received FFP and IV vitamin K: INR improved yesterday but again today INR is 26 and PT: 320 GI and hematology following-so far getting cryoprecipitatex1 and FFP q.6 hour, PT PTT Q 3 hour after 1st dose of FFP. Patient denies any gingival bleeding or any blood in the stool today 2.Liver disease with coagulopathy, portal HTN, thrombocytopenia, grade 1 esophageal varices c/ ascites Has ascites blood pressure acceptable. Hold propranolol, spironolactone due to borderline blood pressure, we will give 250 mL normal saline as well as albumin and monitor blood pressure closely. 3.anemia-Anemia probably acute on chronic blood loss: Had a gingival oozing for sometime as per the patient at home, also has ulcerative colitis which might be contributing. H/H at baseline heme + stool. h/o UC, frequently sees blood on toilet paper h/h 7.6 /22.5 which seems near to his baseline no active bleeding currently-will continue to monitor. GI evaluation noted -avoid tap for now due to boderline blood pressure . patient will be going for colonoscopy : Probable ulcerative colitis-started on IV steroid. Will check CBC post transfusion. 4.h/o etoh abuse:no etoh since august 5.UC-continue mesalamine dvt ppx - chemoprophylaxis CI due to elevated INR
--- NOTE | 2020-12-17 17:29 | P.EN_ITS ---
Event Note Date of Service: 12/17/20 Event Note: With findings on the [place]--patient will need IV steroids 40-80mg s olumedrol for 24-72hr and then oral 20mg BID. Should be on his mesalamine 4.8 gm daily as he has been @ home. This problem adds to his hypoalbuminemia. Ensure supplementation TID. IF further input is needed Dr. Peralta is covering the weekend for us.
[2020-12-17] MEDS: Omeprazole 40 MG CAPSULE.DR PO (18:35)
[2020-12-17] MEDS: Phytonadione (Vit K1) 10 MG in 0.9 % Sodium Chloride 50 ML 51 MG IV (19:33)
[2020-12-18] VITALS (8 sets, daily range): BP systolic 109–141; BP diastolic 56–69; PULSE 71–84; RESP 18–20; TEMP 36.4–36.7; O2SAT 98–100
--- NOTE | 2020-12-18 03:10 | OP_ITS ---
SURGEON: Clarita Loja MD PROCEDURE PERFORMED: Colonoscopy. No biopsy again due to coagulopathy. ESTIMATED BLOOD LOSS: Minimal. COMPLICATIONS: No complications. ANESTHESIA: Monitored. ANESTHESIOLOGIST: Frank Singleton CRNA ASSISTANTS:NONE SPECIMENS: None. PREOPERATIVE DIAGNOSES: The patient has a history of ulcerative colitis. He came in with coagulopathy at this point due to severe hypoalbuminemia and history of UC, we have absolute need to know how active his colitis is in terms of management. (He has finally stopped drinking alcohol--Liver disease had appeared to have stabilized.) POSTOPERATIVE DIAGNOSES: The patient has pinpoint ulcerative changes, erythema, and friability from rectum, continuous to the cecum. Terminal ileal villi are slightly foreshortened. One erosion was seen in that region. No biopsies were taken. EVENTS AND PROMOTIONS ASSISTANT: Clarita Loja MD DESCRIPTION OF PROCEDURE: Digital rectal exam revealed no specific lesion. Video colonoscope was introduced without difficulty. It was navigated into the rectosigmoid. There was continuous pinpoint irritation to inform inflammatory changes, minimal edema, but definite friability from anorectal verge on up to the cecum. I was able to enter the terminal ileum, and view was not rather normal-appearing villi except they seem to be somewhat foreshortened, and there was 1 erosion seen within the first 6 cm. I think I got into the depth of approximately 12 cm. Anorectal verge was clear. PLAN: The patient needs parenteral steroids for now. We would suggest 40 mg of Solu-Medrol twice daily today, then daily for 2 days, and switch to oral 40 mg depending on what his blood sugar levels are running and to taper down to the level of 15 to 20 mg daily depending on tolerance. Further options for treatment such as Remicade or Humira will be addressed once we find out whether or not the coagulopathy is going to stabilize.. GRAFT OR IMPLANTS: No grafts or implants. Clarita Loja MD MEN/MODL / [id number] MTDD
[2020-12-18 06:51] LABS: Fibrinogen 286 MG/DL (259-690); INTERNATIONAL NORM RATIO 1.7 (0.9-1.1); Prothrombin Time 20.2 SEC (10.8-13.0)
[2020-12-18 06:53] LABS: Partial Thromboplastin Time 42.9 SEC (24.1-38.0)
[2020-12-18 06:54] LABS: Hematocrit 26.6 % (42-52); Hemoglobin 8.9 g/dl (14.0-18.0); Mean Corpuscular HGB Conc 33.5 g/dl (31.0-36.0); Mean Corpuscular Volume 95.7 fL (80-98); Mean Platelet Volume 9.6 fL (9.4-12.4); Platelet Count 128 X10*3/uL (160-400); Red Blood Count 2.78 X10*6/uL (4.60-5.80); Red Cell Distribution Width 15.5 % (11.0-16.0); White Blood Count 3.3 X10*3/uL (4.8-10.8)
[2020-12-18 07:01] LABS: D Dimer 5018 NG/ML
[2020-12-18 07:13] LABS: Anion Gap 11 (12-20); Blood Urea Nitrogen 6 mg/dL (9-16); Carbon Dioxide 21 mmol/L (22-29); Chloride 111 mmol/L (96-108); Creatinine Clr Calc Pharmacy 108.5; Estimated Glomerular Filt Rate > 60; Glucose Random 203 mg/dL (60-115); Potassium 4.1 mmol/l (3.3-5.1); Sodium 139 mmol/L (135-145)
[2020-12-18 07:34] LABS: Calcium 8.1 mg/dL (8.4-10.2)
[2020-12-18] MEDS: Spironolactone 25 MG TABLET PO (08:16)
[2020-12-18] MEDS: Omeprazole 40 MG CAPSULE.DR PO ×2 (08:16→18:13)
[2020-12-18] MEDS: Propranolol HCL 10 MG TABLET PO ×2 (08:16→21:01)
[2020-12-18] MEDS: Ferrous Sulfate 324 MG TABLET.DR PO ×3 (08:16→21:01)
[2020-12-18] MEDS: 0.9 % Sodium Chloride Flush 3 ML SYRINGE IVFLUSH ×3 (08:17→21:04)
[2020-12-18] MEDS: Mesalamine 400 MG CAP.DRTAB. 4800 MG PO (08:17)
--- NOTE | 2020-12-18 09:22 | HO.POSTANES ---
Post Anesthesia Evaluation Post Anesthesia Evaluation Vital Signs: Vital Signs Temp Pulse Resp BP Pulse Ox 12/18/20 08:16 71 120/64 12/18/20 07:50 98.0 F 71 20 120/64 100 12/18/20 03:39 97.9 F 71 18 132/60 98 12/17/20 23:17 97.2 F 70 18 119/54 L 98 12/17/20 21:51 97.9 F 72 16 126/76 12/17/20 21:33 97.5 F 59 16 116/66 Anesthesia: Monitored Mental Status: Awake Pain Control: Satisfactory Nausea/Vomiting: None Hydration: Adequate Anesthesia-Related Issues: No Anes. Related Issues
--- NOTE | 2020-12-18 12:32 | MHC.CM.PN ---
per rounds pt not ready for dc today cm will continue tofollow dc plan remanins home no servceis
[2020-12-18 13:13] LABS: INTERNATIONAL NORM RATIO 1.7 (0.9-1.1); Prothrombin Time 20.8 SEC (10.8-13.0)
[2020-12-18 13:16] LABS: Partial Thromboplastin Time 48.1 SEC (24.1-38.0)
--- NOTE | 2020-12-18 16:38 | P.PNIM_ITS ---
Subjective Subjective Date of Service: 12/18/20 Interval History: Coagulopathy, anemia, liver disease, ulcerative colitis flare? Review of Systems Patient seems to be feeling slightly better than yesterday Denies any chest pain or shortness of breath or abdominal pain or fever or chills or any urinary complaints. Physical Exam Vital Signs: Vital Signs: Last Vital Signs Temp 97.9 F 12/18/20 15:39 Pulse 84 12/18/20 15:39 Resp 19 12/18/20 15:39 BP 122/56 L 12/18/20 15:39 Pulse Ox 100 12/18/20 15:39 Body Mass Index 38.0 Physical exam: Constitutional: Noted acute distress. HEENT: Eyes :anicteric ,no discharge. Neck supple Cvs: rrr, [id number] , no murmur res: clear to auscultation ,no rhonchii or wheezing abd: no rebound or guarding ,nt, has some ascites, bs present. ext pulses present , no cyanosis neuro: axo3 , nonfocal. Objective Data Current Medications Generic Name Dose Route Start Last Admin Trade Name Freq PRN Reason Stop Dose Admin Docusate Sodium 100 mg 12/14/20 23:08 Docusate Sodium 100 Mg Capsule PO DAILY PRN Constipation Ferrous Sulfate 324 mg 12/15/20 09:00 12/18/20 15:39 Ferrous Sulfate 324 Mg Tablet.Dr PO 324 mg TID BIANCA Administration Guaifenesin 10 ml 12/15/20 02:45 12/16/20 14:56 Guaifenesin 200 Mg/10 Ml 10 Ml Liquid PO 10 ml Q6H PRN Administration Cough Hydroxyzine HCl 25 mg 12/14/20 23:08 12/17/20 20:24 Hydroxyzine Hcl 25 Mg Tablet PO 25 mg BEDTIME BIANCA Administration Mesalamine 4,800 mg 12/15/20 09:00 12/18/20 08:17 Mesalamine 400 Mg Cap.Drtab. PO 4,800 mg DAILY BIANCA Administration Methylprednisolone Sodium Succinate 40 mg 12/17/20 18:45 12/17/20 19:36 Methylprednisolone Sod Succ/Pf 40 Mg/Ml Vial IVPUSH 40 mg Q24H BIANCA Administration Naloxone HCl 0.04 mg 12/17/20 15:42 Naloxone Hcl 0.4 Mg/Ml Vial IVPUSH Q5M PRN Respiratory Rate < 8 Omeprazole 40 mg 12/15/20 08:30 12/18/20 08:16 Omeprazole 40 Mg Capsule. PO 40 mg BIDPC BIANCA Administration Ondansetron HCl 4 mg 12/14/20 23:08 Ondansetron Hcl 4 Mg/2 Ml Vial IVPUSH Q8H PRN Nausea and Vomiting Pharmacy Consult 1 each 12/14/20 16:58 Consult Rx Perform Med Rec MISCELLANE ONCE PRN Consult order Propranolol HCl 10 mg 12/14/20 23:08 12/18/20 08:16 Propranolol Hcl 10 Mg Tablet PO 10 mg BID BIANCA Administration Protocol Sodium Chloride 3 ml 12/15/20 00:00 12/18/20 15:39 0.9 % Sodium Chloride Flush 3 Ml Syringe IVFLUSH 3 ml QSHIFT BIANCA Administration Spironolactone 25 mg 12/15/20 09:00 12/18/20 08:16 Spironolactone 25 Mg Tablet PO 25 mg DAILY BIANCA Administration Protocol Labs CBC & Chem 7: 12/18/20 05:36 12/18/20 05:36 Assessment and Plan (1) Advanced hepatic cirrhosis: Status: Acute (2) Coagulopathy: Status: Acute (3) Hypoalbuminemia: Status: Acute (4) Alcohol abuse: Status: Acute (5) Anemia: Status: Acute Assessment and Plan: 55 year old AA male with 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 Labs show improvement in LFT (since he quitted ETOH) and significant worsening of coaguloapthy with INR > 26 (increased from 2.2 on 11/27/20). 1.Coagulopathy-probable related to liver disease, Initial INR >26, ddimer >13388 On admission patient received FFPx8 , cryo x6 , 1 prbc and IV vitamin Kx3 days Patient denies any gingival bleeding or any blood in the stool today h/h 8.9/26.6 , platlets 128 We will repeat PT PTT INR in evening and if patient INR is above 2.5 patient will need another FFP and cryo-spoke to the blood bank already. 2.Liver disease with coagulopathy, portal HTN, thrombocytopenia, grade 1 esophageal varices c/ ascites Has ascites blood pressure acceptable. Hold ascitis and propranolol, spironolactone. 3.anemia-Anemia probably acute on chronic blood loss: Had a gingival oozing for sometime as per the patient at home, also has ulcerative colitis which might be contributing. H/H at baseline heme + stool. h/o UC, frequently sees blood on toilet paper patient will be going for colonoscopy : Probable ulcerative colitis flare- started on IV steroid. Continue IV Solu-Medrol. 4.h/o etoh abuse:no etoh since august 5.UC-continue mesalamine, solumedrol. dvt ppx - chemoprophylaxis CI due to elevated INR
[2020-12-18 18:42] LABS: INTERNATIONAL NORM RATIO 1.8 (0.9-1.1); Prothrombin Time 21.3 SEC (10.8-13.0)
[2020-12-18 18:45] LABS: Partial Thromboplastin Time 49.7 SEC (24.1-38.0)
[2020-12-18] MEDS: hydrOXYzine HCL 25 MG TABLET PO (21:01)
[2020-12-19] VITALS (8 sets, daily range): BP systolic 93–125; BP diastolic 46–76; PULSE 51–70; RESP 16–22; TEMP 36.4–36.8; O2SAT 98–100
[2020-12-19 07:17] LABS: Hematocrit 25.9 % (42-52); Hemoglobin 8.6 g/dl (14.0-18.0)
[2020-12-19 07:25] LABS: INTERNATIONAL NORM RATIO 2.1 (0.9-1.1); Prothrombin Time 25.6 SEC (10.8-13.0)
[2020-12-19 07:39] LABS: Partial Thromboplastin Time 78.7 SEC (24.1-38.0)
[2020-12-19 07:43] LABS: Anion Gap 10 (12-20); Blood Urea Nitrogen 7 mg/dL (9-16); Calcium 8.3 mg/dL (8.4-10.2); Carbon Dioxide 23 mmol/L (22-29); Chloride 110 mmol/L (96-108); Creatinine Clr Calc Pharmacy 118.5; Estimated Glomerular Filt Rate > 60; Glucose Random 152 mg/dL (60-115); Potassium 4.2 mmol/L (3.3-5.1); Sodium 139 mmol/L (135-145)
[2020-12-19] MEDS: Omeprazole 40 MG CAPSULE.DR PO ×2 (08:54→18:13)
[2020-12-19] MEDS: Ferrous Sulfate 324 MG TABLET.DR PO ×3 (08:55→21:54)
[2020-12-19] MEDS: Propranolol HCL 10 MG TABLET PO ×2 (08:55→21:54)
[2020-12-19] MEDS: Spironolactone 25 MG TABLET PO (08:55)
[2020-12-19] MEDS: 0.9 % Sodium Chloride Flush 3 ML SYRINGE IVFLUSH ×2 (08:55→15:47)
[2020-12-19] MEDS: Mesalamine 400 MG CAP.DRTAB. 1600 MG PO ×3 (09:54→21:54)
--- NOTE | 2020-12-19 13:49 | P.PNIM_ITS ---
Subjective Subjective Date of Service: 12/19/20 Interval History: Liver disease, coagulopathy Review of Systems Patient's denies any abdominal pain or nausea vomiting or any urinary complaints. Eating breakfast Denies any bleeding episode, says that he still has diarrhea but somewhat improving Physical Exam Vital Signs: Vital Signs: Last Vital Signs Temp 97.5 F 12/19/20 11:04 Pulse 70 12/19/20 11:04 Resp 16 12/19/20 11:04 BP 107/58 L 12/19/20 11:04 Pulse Ox 99 12/19/20 11:04 Body Mass Index 38.0 physical exam: Constitutional: Noted acute distress. HEENT: Eyes :no redness,no discharge. Neck supple Cvs: rrr, [id number] , no murmur res: clear to auscultation ,no rhonchii or wheezing abd: no rebound or guarding ,nt, has some ascites, bs present. ext pulses present , no cyanosis neuro: axo3 , nonfocal. Objective Data Current Medications Generic Name Dose Route Start Last Admin Trade Name Danielq PRN Reason Stop Dose Admin Docusate Sodium 100 mg 12/14/20 23:08 Docusate Sodium 100 Mg Capsule PO DAILY PRN Constipation Ferrous Sulfate 324 mg 12/15/20 09:00 12/19/20 08:55 Ferrous Sulfate 324 Mg Tablet.Dr PO 324 mg TID BIANCA Administration Guaifenesin 10 ml 12/15/20 02:45 12/16/20 14:56 Guaifenesin 200 Mg/10 Ml 10 Ml Liquid PO 10 ml Q6H PRN Administration Cough Hydroxyzine HCl 25 mg 12/14/20 23:08 12/18/20 21:01 Hydroxyzine Hcl 25 Mg Tablet PO 25 mg BEDTIME BIANCA Administration Mesalamine 1,600 mg 12/19/20 09:00 12/19/20 09:54 Mesalamine 400 Mg Cap.Drtab. PO 1,600 mg TID BIANCA Administration Methylprednisolone Sodium Succinate 40 mg 12/17/20 18:45 12/18/20 18:13 Methylprednisolone Sod Succ/Pf 40 Mg/Ml Vial IVPUSH 40 mg Q24H BIANCA Administration Naloxone HCl 0.04 mg 12/17/20 15:42 Naloxone Hcl 0.4 Mg/Ml Vial IVPUSH Q5M PRN Respiratory Rate < 8 Omeprazole 40 mg 12/15/20 08:30 12/19/20 08:54 Omeprazole 40 Mg Capsule. PO 40 mg BIDPC BIANCA Administration Ondansetron HCl 4 mg 12/14/20 23:08 Ondansetron Hcl 4 Mg/2 Ml Vial IVPUSH Q8H PRN Nausea and Vomiting Pharmacy Consult 1 each 12/14/20 16:58 Consult Rx Perform Med Rec MISCELLANE ONCE PRN Consult order Propranolol HCl 10 mg 12/14/20 23:08 12/19/20 08:55 Propranolol Hcl 10 Mg Tablet PO 10 mg BID BIANCA Administration Protocol Sodium Chloride 3 ml 12/15/20 00:00 12/19/20 08:55 0.9 % Sodium Chloride Flush 3 Ml Syringe IVFLUSH 3 ml QSHIFT BIANCA Administration Spironolactone 25 mg 12/15/20 09:00 12/19/20 08:55 Spironolactone 25 Mg Tablet PO 25 mg DAILY BIANCA Administration Protocol Labs CBC & Chem 7: 12/19/20 06:01 12/19/20 06:01 Assessment and Plan (1) Coagulopathy: Status: Acute (2) Hypoalbuminemia: Status: Acute (3) Advanced hepatic cirrhosis: Status: Acute (4) Alcohol abuse: Status: Acute (5) Anemia: Status: Acute Assessment and Plan: 55 year old AA male with ESLD related to past heavy ETOH abuse (quitted 2 months ago) complicated by portal hypertension, coagulopathy, thrombocytopenia and 1+ esophageal varices (on past EGD) being admitted with chronic cough with hemptysi s, bleeding from gums on brushing his teeth. Labs show improvement in LFT (since he quitted ETOH) and significant worsening of coaguloapthy with INR > 26 (increased from 2.2 on 11/27/20). 1.Coagulopathy-probable related to liver disease, Initial INR >26, ddimer >63556 On admission patient received FFPx8 , cryo x6 , 1 prbc and IV vitamin Kx3 days Patient denies any gingival bleeding or any blood in the stool today PT PTT INR-25.6/2.1/78.7, h/h 8.6. Will repeat PT PTT INR and hemoglobin/hematocrit in the morning. 2.Liver disease with coagulopathy, portal HTN, thrombocytopenia, grade 1 esopha geal varices c/ ascites Has ascites blood pressure acceptable. continue propranolol, spironolactone. 3.anemia-Anemia probably acute on chronic blood loss: Had a gingival oozing for sometime as per the patient at home, also has ulcerative colitis which might be contributing. H/H at baseline heme + stool. h/o UC, frequently sees blood on toilet paper patient will be going for colonoscopy : Probable ulcerative colitis flare- started on IV steroid. Continue IV Solu-Medrol. 4.h/o etoh abuse:no etoh since august 5.UC-continue mesalamine, solumedrol. dvt ppx - chemoprophylaxis CI due to elevated INR
--- NOTE | 2020-12-19 14:59 | PM.HEMONCPN ---
Medical Summary - Medical Summary Date of Service: 12/19/20 Chief complaint: coagulopathy Interval History Interval history: His PTT has increased over the lat 24 hours Review of Systems - Constitutional Reports anorexia - Gastrointestinal Reports change in bowel habits - Genitourinary Genitourinary: Reports urinary frequency - Musculoskeletal Reports other - Psychiatric Reports abnormal sleep pattern - Hematologic/Lymphatic Reports easy bruising [facility] Medical History: Medical History (Last Reviewed 12/17/20 @ 15:27 by Rell Cisneros MD) Alcohol abuse Anemia Coagulopathy Fatty liver Hypoalbuminemia 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 Mother No problems noted. Daughter No problems noted. Son No problems noted. Surgical History: Surgical History (Last Reviewed 12/17/20 @ 15:27 by Rell Cisneros MD) History of esophagogastroduodenoscopy (EGD) Hx of colonoscopy Social History: Social History (Last Reviewed 12/17/20 @ 15:27 by Rell Cisneros MD) Living Situation History: Household Members: Spouse Housing: House Alcohol History: Alcohol intake: former Alcohol History Details: Alcohol intake frequency: holiday/special occasion Occupation Assessmet: service: No Current occupational status: unemployed Smoking status: Never smoker Home Medications and Allergies Current Medications: Current Medications Generic Name Dose Route Start Last Admin Trade Name Freq PRN Reason Stop Dose Admin Docusate Sodium 100 mg 12/14/20 23:08 Docusate Sodium 100 Mg Capsule PO DAILY PRN Constipation Ferrous Sulfate 324 mg 12/15/20 09:00 12/19/20 08:55 Ferrous Sulfate 324 Mg Tablet.Dr PO 324 mg TID BIANCA Administration Guaifenesin 10 ml 12/15/20 02:45 12/16/20 14:56 Guaifenesin 200 Mg/10 Ml 10 Ml Liquid PO 10 ml Q6H PRN Administration Cough Hydroxyzine HCl 25 mg 12/14/20 23:08 12/18/20 21:01 Hydroxyzine Hcl 25 Mg Tablet PO 25 mg BEDTIME BIANCA Administration Mesalamine 1,600 mg 12/19/20 09:00 12/19/20 09:54 Mesalamine 400 Mg Cap.Drtab. PO 1,600 mg TID BIANCA Administration Methylprednisolone Sodium Succinate 40 mg 12/17/20 18:45 12/18/20 18:13 Methylprednisolone Sod Succ/Pf 40 Mg/Ml Vial IVPUSH 40 mg Q24H BIANCA Administration Naloxone HCl 0.04 mg 12/17/20 15:42 Naloxone Hcl 0.4 Mg/Ml Vial IVPUSH Q5M PRN Respiratory Rate < 8 Omeprazole 40 mg 12/15/20 08:30 12/19/20 08:54 Omeprazole 40 Mg Capsule.Dr PO 40 mg BIDPC BIANCA Administration Ondansetron HCl 4 mg 12/14/20 23:08 Ondansetron Hcl 4 Mg/2 Ml Vial IVPUSH Q8H PRN Nausea and Vomiting Pharmacy Consult 1 each 12/14/20 16:58 Consult Rx Perform Med Rec MISCELLANE ONCE PRN Consult order Propranolol HCl 10 mg 12/14/20 23:08 12/19/20 08:55 Propranolol Hcl 10 Mg Tablet PO 10 mg BID BIANCA Administration Protocol Sodium Chloride 3 ml 12/15/20 00:00 12/19/20 08:55 0.9 % Sodium Chloride Flush 3 Ml Syringe IVFLUSH 3 ml QSHIFT BIANCA Administration Spironolactone 25 mg 12/15/20 09:00 12/19/20 08:55 Spironolactone 25 Mg Tablet PO 25 mg DAILY BIANCA Administration Protocol Allergies Allergy/AdvReac Type Severity Reaction Status Date / Time No Known Allergies Allergy Verified 12/10/20 09:59 [No Known Allergies*] Exam Vital signs: Vital Signs Temp 97.5 F 12/19/20 11:04 Pulse 70 12/19/20 11:04 Resp 16 12/19/20 11:04 BP 107/58 L 12/19/20 11:04 Pulse Ox 99 12/19/20 11:04 Intake & Output 12/18/20 12/19/20 12/19/20 18:59 06:59 18:59 Intake Total 360 / 1240 880 / 1240 360 / 360 Balance 360 / 1240 880 / 1240 360 / 360 Intake: Intake, Oral Amount 360 / 1240 880 / 1240 360 / 360 Other: Breakfast % Eaten 100% Lunch % Eaten 100% 100% Dinner % Eaten 100% Number of Unmeasured Voids 2 1 Urine Bathroom Urine Color Yellow Last Bowel Movement 12/17/20 Stool Bathroom Weight 113.3 kg Body Mass Index 38.0 - Constitutional Present: no acute distress - Routine HEENT Exam Head: Present: normal inspection - Routine Respiratory Exam Absent: respiratory distress - Routine Cardiovascular Exam Cardiovascular: Present: S1, S2 - Routine Abdominal Exam Present: distended, hypoactive bowel sounds - Routine Extremities Exam Present: pedal edema - Routine Skin Exam Present: intact - Routine Neurological Exam Present: oriented X3 Data - Labs CBC & Chem 7: 12/19/20 06:01 12/19/20 06:01 Labs: 12/14/20 Breakfast Clear Liquid Diet 12/14/20 12:28 XR chest 2V Stat 12/14/20 13:23 guaiFEN/Codeine SF 200/20/10ML [Robitussin AC 200/20/10ML] 10 ml PO ONCE ONE 12/14/20 13:34 Basic Metabolic Panel Stat Complete Blood Count Auto Diff Stat Liver Panel Stat 12/14/20 14:43 D Dimer Stat Fibrinogen Stat Partial Thromboplastin Time Stat Prothrombin Time INR Stat 12/14/20 15:13 Phytonadione (Vit K1) [Vitamin K] 10 mg 0.9 % Sodium Chloride [Ns] 50 ml IV ONCE 12/14/20 15:28 [id number] Stat 12/14/20 15:38 Add Laboratory Test Stat 12/14/20 15:51 Fresh Frozen Plasma Stat Type and Screen Stat 12/14/20 16:01 Pantoprazole Sodium [Protonix] 80 mg IVPUSH ONCE ONE 12/14/20 17:20 Transfer Order Routine 12/14/20 18:17 COVID-19 ID NOW (Laurent) Stat 12/14/20 19:43 Ammonia Stat 12/14/20 23:08 polyethylene glycoL 3350 [Miralax] 238 gm PO ONCE 12/15/20 07:42 Basic Metabolic Panel DAILY@0600 C Reactive Protein Routine Complete Blood Count Auto Diff DAILY@0600 Creatine Kinase Total Routine Gamma Glutamyl Transpeptidase Routine Lactate Dehydrogenase Routine Liver Panel DAILY@0600 Magnesium Routine Prothrombin Time INR DAILY@0600 12/15/20 09:00 Mesalamine [Delzicol] 4,800 mg PO DAILY Omeprazole [PriLOSEC] 40 mg PO DAILY 12/15/20 09:57 Phytonadione (Vit K1) Oral [Vitamin K Oral] 10 mg PO ONCE ONE 12/15/20 09:58 Vital Signs Q4H 12/15/20 11:00 Albumin Human 25 % [Kedbumin 25 %] 100 ml IV Q6H 12/15/20 13:25 Flu Vacc [id number](6mos up)/PF [Fluarix Quad ] 0.5 ml IM .ONCE ONE 12/15/20 13:51 Add Laboratory Test Urgent 12/15/20 Lunch Regular Diet 12/16/20 05:24 Basic Metabolic Panel DAILY@0600 Hemoglobin and Hematocrit DAILY@0600 Liver Panel DAILY@0600 Prothrombin Time INR DAILY@0600 12/16/20 09:56 Phytonadione (Vit K1) [Vitamin K] 10 mg 0.9 % Sodium Chloride [Ns] 50 ml IV ONCE 12/16/20 09:59 0.9 % Sodium Chloride [Ns] 1,000 ml IVCONT 250 mls/hr 12/16/20 Breakfast NPO Diet Albumin Human 25 % [Kedbumin 25 %] 100 ml IV Q1H 12/16/20 11:06 Cryoprecipitate Urgent 12/16/20 11:25 Other Ref Test - Misc Routine Prothrombin Time INR Urgent 12/16/20 Lunch Regular Diet 12/16/20 18:50 Partial Thromboplastin Time Routine 12/16/20 20:51 Partial Thromboplastin Time Routine Partial Thromboplastin Time Routine Prothrombin Time INR Routine Prothrombin Time INR Routine 12/17/20 02:27 Partial Thromboplastin Time Stat Prothrombin Time INR Stat 12/17/20 05:44 Complete Blood Count Auto Diff Routine Partial Thromboplastin Time Routine Prothrombin Time INR Routine 12/17/20 08:10 Red Blood Cells Urgent 12/17/20 08:11 Add Laboratory Test Urgent 12/17/20 08:38 Acetaminophen [Tylenol] 650 mg PO ONCE ONE 12/17/20 Breakfast NPO Diet 12/17/20 12:05 Phytonadione (Vit K1) [Vitamin K] 10 mg 0.9 % Sodium Chloride [Ns] 50 ml IV ONCE 12/17/20 14:04 Glycopyrrolate [Robinul] 0.2 mg .ROUTE .STK-MED ONE Lidocaine HCl 1 % MPF [Xylocaine 1 % MPF] 5 ml .ROUTE .STK-MED ONE 12/17/20 14:05 propofoL [Diprivan] 200 mg IVPUSH .STK-MED ONE 12/17/20 17:00 Phenylephrine HCL 1,000 mcg IVPUSH .STK-MED ONE 12/17/20 19:09 Cryoprecipitate Routine Fresh Frozen Plasma Routine Type and Screen Routine 12/18/20 05:36 Basic Metabolic Panel DAILY@0600 Complete Blood Count no Diff DAILY@0600 D Dimer Routine Fibrinogen Routine Partial Thromboplastin Time Routine Prothrombin Time INR DAILY@0600 12/18/20 12:22 Partial Thromboplastin Time Routine Prothrombin Time INR Routine 12/18/20 18:14 Partial Thromboplastin Time Routine Prothrombin Time INR Routine 12/19/20 06:01 Basic Metabolic Panel DAILY@0600 Hemoglobin and Hematocrit DAILY@0600 Partial Thromboplastin Time Routine Prothrombin Time INR DAILY@0600 Laboratory Last Values WBC 3.3 X10*3/uL (4.8-10.8) L 12/18/20 05:36 RBC 2.78 X10*6/uL (4.60-5.80) L 12/18/20 05:36 Hgb 8.6 g/dl (14.0-18.0) L 12/19/20 06:01 Hct 25.9 % (42-52) L 12/19/20 06:01 MCV 95.7 fL (80-98) 12/18/20 05:36 MCH 32.0 pg (27.0-33.0) 12/18/20 05:36 MCHC 33.5 g/dl (31.0-36.0) 12/18/20 05:36 RDW 15.5 % (11.0-16.0) 12/18/20 05:36 Plt Count 128 X10*3/uL (160-400) L 12/18/20 05:36 MPV 9.6 fL (9.4-12.4) 12/18/20 05:36 Immature Gran % (Auto) 0.3 % (0.0-0.4) 12/17/20 05:44 Neut % (Auto) 46.9 % (45-73) 12/17/20 05:44 Lymph % (Auto) 34.5 % (20-40) 12/17/20 05:44 [place] % (Auto) 12.7 % (2-11) H 12/17/20 05:44 Eos % (Auto) 4.8 % (0-4) H 12/17/20 05:44 Baso % (Auto) 0.8 % (0-2) 12/17/20 05:44 Lymph # (Auto) 1.4 X10*3/uL (1.2-4.9) 12/17/20 05:44 [place] # (Auto) 0.5 X10*3/uL (0.1-1.2) 12/17/20 05:44 Eos # (Auto) 0.2 X10*3/uL (0.0-0.4) 12/17/20 05:44 Baso # (Auto) 0.0 X10*3/uL (0.0-0.2) 12/17/20 05:44 Abs Immat Gran (auto) 0.01 X10*3/uL (0.00-0.03) 12/17/20 05:44 Absolute Neuts (auto) 1.9 X10*3/uL (2.0-8.3) L 12/17/20 05:44 Absolute Nucleated RBC 0.000 X10*3/uL (0.0-0.012) 12/18/20 05:36 Nucleated RBC % (auto) 0.0 /100WBC (0.0-0.2) 12/18/20 05:36 PT 25.6 SEC (10.8-13.0) H D 12/19/20 06:01 INR 2.1 (0.9-1.1) H 12/19/20 06:01 APTT 78.7 SEC (24.1-38.0) H* D 12/19/20 06:01 Fibrinogen 286 MG/DL (259-690) 12/18/20 05:36 D-Dimer 5018 NG/ML 12/18/20 05:36 Sodium 139 mmol/L (135-145) 12/19/20 06:01 Potassium 4.2 mmol/L (3.3-5.1) 12/19/20 06:01 Chloride 110 mmol/L (96-108) H 12/19/20 06:01 Carbon Dioxide 23 mmol/L (22-29) 12/19/20 06:01 Anion Gap 10 (12-20) L 12/19/20 06:01 BUN 7 mg/dL (9-16) L 12/19/20 06:01 Creatinine 0.87 mg/dL (0.5-1.4) 12/19/20 06:01 Estim Creat Clear Calc 118.5 12/19/20 06:01 Estimated GFR > 60 12/19/20 06:01 Random Glucose 152 mg/dL (60-115) H 12/19/20 06:01 Calcium 8.3 mg/dL (8.4-10.2) L 12/19/20 06:01 Magnesium 1.6 mg/dL (1.6-2.6) 12/15/20 07:42 Total Bilirubin 3.9 mg/dL (0.0-1.0) H 12/16/20 05:24 Direct Bilirubin 2.5 mg/dL (0.0-0.5) H 12/16/20 05:24 GGT 224 U/L (11-51) H 12/15/20 07:42 AST 59 U/L (5-37) H 12/16/20 05:24 ALT 23 U/L (0-40) 12/16/20 05:24 Alkaline Phosphatase 257 U/L (39-117) H 12/16/20 05:24 Ammonia 31 umol/L (13-55) 12/14/20 19:43 Lactate Dehydrogenase 268 U/L (118-273) 12/15/20 07:42 Total Creatine Kinase 152 U/L (38-174) 12/15/20 07:42 C-Reactive Protein 1.58 mg/dL (< or = 0.50) H 12/15/20 07:42 Total Protein 5.8 g/dL (6.5-8.0) L 12/16/20 05:24 Albumin 2.0 g/dL (3.5-5.0) L D 12/16/20 05:24 Stool Occult Blood POS (NEG) 12/14/20 15:28 COVID-19 (ADELA) Negative (Negative) 12/14/20 18:17 COVID-19 Clin Com See Note 12/14/20 18:17 Ref Lab Test Result See Note 12/16/20 11:25 Blood Type O Positive 12/17/20 19:09 Antibody Screen NEGATIVE 12/17/20 19:09 Crossmatch See Detail 01/25/21 15:51 - Imaging Radiologist's impression: ITS Impressions Chest X-Ray 12/14/20 12:28 IMPRESSION: Unremarkable chest exam. Progress Note: A/P - Time Spent With Patient Total time spent is greater than 50% in coordination of care (as documented) at patient's floor/unit and/or counseling patient: less than 15 minutes
[2020-12-19] MEDS: hydrOXYzine HCL 25 MG TABLET PO (21:54)
[2020-12-20] VITALS (19 sets, daily range): BP systolic 109–137; BP diastolic 53–88; PULSE 56–70; RESP 16–18; TEMP 36.3–36.8; O2SAT 95–99
[2020-12-20] MEDS: 0.9 % Sodium Chloride Flush 3 ML SYRINGE IVFLUSH ×3 (02:45→16:01)
[2020-12-20 07:00] LABS: Hemoglobin 9.1 g/dl (14.0-18.0)
[2020-12-20 07:14] LABS: Partial Thromboplastin Time > 200.0 SEC (24.1-38.0); Prothrombin Time > 320.0 SEC (10.8-13.0)
[2020-12-20 07:15] LABS: INTERNATIONAL NORM RATIO > 26.0 (0.9-1.1)
[2020-12-20 08:02] LABS: Alanine Aminotransferase 23 U/L (0-40); Albumin Level 2.3 g/dL (3.5-5.0); Alkaline Phosphatase 210 U/L (39-117); Aspartate Amino Transferase 53 U/L (5-37); Bilirubin Direct 1.9 mg/dL (0.0-0.5); Bilirubin Total 2.9 mg/dL (0.0-1.0); Total Protein 6.1 g/dL (6.5-8.0)
[2020-12-20 08:46] LABS: Platelet Count 137 X10*3/uL (160-400)
[2020-12-20] MEDS: Spironolactone 25 MG TABLET PO (09:01)
[2020-12-20] MEDS: Mesalamine 400 MG CAP.DRTAB. 1600 MG PO ×3 (09:02→20:14)
[2020-12-20] MEDS: Ferrous Sulfate 324 MG TABLET.DR PO ×3 (09:02→20:15)
[2020-12-20] MEDS: Omeprazole 40 MG CAPSULE.DR PO ×2 (09:02→16:01)
[2020-12-20] MEDS: Propranolol HCL 10 MG TABLET PO ×2 (09:02→20:15)
--- NOTE | 2020-12-20 14:03 | P.PNHO_ITS ---
Medical Summary - Medical Summary Date of Service: 12/20/20 (cirrhosis of liver) Interval History Interval history: He remains stable with no bleeding. 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 Mother No problems noted. Daughter No problems noted. Son No problems noted. Surgical History: Surgical History (Last Reviewed 12/17/20 @ 15:27 by Rell Cisneros MD) History of esophagogastroduodenoscopy (EGD) Hx of colonoscopy Social History: Social History (Last Reviewed 12/17/20 @ 15:27 by Rell Cisneros MD) Living Situation History: Household Members: Spouse Housing: House Alcohol History: Alcohol intake: former Alcohol History Details: Alcohol intake frequency: holiday/special occasion Occupation Assessmet: service: No Current occupational status: unemployed Smoking status: Never smoker Home Medications and Allergies Current Medications: Current Medications Generic Name Dose Route Start Last Admin Trade Name Freq PRN Reason Stop Dose Admin Docusate Sodium 100 mg 12/14/20 23:08 Docusate Sodium 100 Mg Capsule PO DAILY PRN Constipation Ferrous Sulfate 324 mg 12/15/20 09:00 12/20/20 09:02 Ferrous Sulfate 324 Mg Tablet.Dr PO 324 mg TID BIANCA Administration Guaifenesin 10 ml 12/15/20 02:45 12/16/20 14:56 Guaifenesin 200 Mg/10 Ml 10 Ml Liquid PO 10 ml Q6H PRN Administration Cough Hydroxyzine HCl 25 mg 12/14/20 23:08 12/19/20 21:54 Hydroxyzine Hcl 25 Mg Tablet PO 25 mg BEDTIME BIANCA Administration Mesalamine 1,600 mg 12/19/20 09:00 12/20/20 09:02 Mesalamine 400 Mg Cap.Drtab. PO 1,600 mg TID BIANCA Administration Methylprednisolone Sodium Succinate 40 mg 12/17/20 18:45 12/19/20 18:13 Methylprednisolone Sod Succ/Pf 40 Mg/Ml Vial IVPUSH 40 mg Q24H BIANCA Administration Naloxone HCl 0.04 mg 12/17/20 15:42 Naloxone Hcl 0.4 Mg/Ml Vial IVPUSH Q5M PRN Respiratory Rate < 8 Omeprazole 40 mg 12/15/20 08:30 12/20/20 09:02 Omeprazole 40 Mg Capsule.Dr PO 40 mg BIDPC BIANCA Administration Ondansetron HCl 4 mg 12/14/20 23:08 Ondansetron Hcl 4 Mg/2 Ml Vial IVPUSH Q8H PRN Nausea and Vomiting Pharmacy Consult 1 each 12/14/20 16:58 Consult Rx Perform Med Rec MISCELLANE ONCE PRN Consult order Propranolol HCl 10 mg 12/14/20 23:08 12/20/20 09:02 Propranolol Hcl 10 Mg Tablet PO 10 mg BID BIANCA Administration Protocol Sodium Chloride 3 ml 12/15/20 00:00 12/20/20 09:02 0.9 % Sodium Chloride Flush 3 Ml Syringe IVFLUSH 3 ml QSHIFT BIANCA Administration Spironolactone 25 mg 12/15/20 09:00 12/20/20 09:01 Spironolactone 25 Mg Tablet PO 25 mg DAILY BIANCA Administration Protocol Allergies Allergy/AdvReac Type Severity Reaction Status Date / Time No Known Allergies Allergy Verified 12/10/20 09:59 [No Known Allergies*] Exam Vital signs: Vital Signs Temp 97.3 F 12/20/20 12:00 Pulse 59 12/20/20 12:00 Resp 16 12/20/20 11:39 BP 121/76 12/20/20 12:00 Pulse Ox 98 12/20/20 12:00 Intake & Output 12/19/20 12/20/20 12/20/20 18:59 06:59 18:59 Intake Total 360 / 1400 1040 / 1400 415 / 415 Balance 360 / 1400 1040 / 1400 415 / 415 Intake: Intake, Oral Amount 360 / 1400 1040 / 1400 Intake (Blood Product) Amount 415 / 415 Thawed Cryoprecipitate (E3591) 115 / 115 Unit [id number] Thawed Plasma (E2720) Unit 300 / 300 [id number] Other: Breakfast % Eaten 100% Lunch % Eaten 100% Dinner % Eaten 100% Number of Unmeasured Voids 2 Number of Bowel Movements 2 Urine Bathroom Urine Color Yellow Last Bowel Movement 01/30/21 01/30/21 Stool Bathroom Bathroom Stool Amount Small Stool Color Brown Stool Consistency Formed Weight 113.3 kg Body Mass Index 38.0 - Constitutional Present: no acute distress - Routine HEENT Exam Head: Present: normal inspection - Routine Respiratory Exam Absent: respiratory distress - Routine Cardiovascular Exam Cardiovascular: Present: S1, S2 - Routine Abdominal Exam Present: distended, hypoactive bowel sounds - Routine Extremities Exam Present: pedal edema - Routine Skin Exam Present: intact - Routine Neurological Exam Present: oriented X3 Data - Labs CBC & Chem 7: 12/20/20 05:54 12/19/20 06:01 Labs: 12/14/20 Breakfast Clear Liquid Diet 12/14/20 12:28 XR chest 2V Stat 12/14/20 13:23 guaiFEN/Codeine SF 200/20/10ML [Robitussin AC 200/20/10ML] 10 ml PO ONCE ONE 12/14/20 13:34 Basic Metabolic Panel Stat Complete Blood Count Auto Diff Stat Liver Panel Stat 12/14/20 14:43 D Dimer Stat Fibrinogen Stat Partial Thromboplastin Time Stat Prothrombin Time INR Stat 12/14/20 15:13 Phytonadione (Vit K1) [Vitamin K] 10 mg 0.9 % Sodium Chloride [Ns] 50 ml IV ONCE 12/14/20 15:28 [id number] Stat 12/14/20 15:38 Add Laboratory Test Stat 12/14/20 15:51 Fresh Frozen Plasma Stat Type and Screen Stat 12/14/20 16:01 Pantoprazole Sodium [Protonix] 80 mg IVPUSH ONCE ONE 12/14/20 17:20 Transfer Order Routine 12/14/20 18:17 COVID-19 ID NOW (Laurent) Stat 12/14/20 19:43 Ammonia Stat 12/14/20 23:08 polyethylene glycoL 3350 [Miralax] 238 gm PO ONCE 12/15/20 07:42 Basic Metabolic Panel DAILY@0600 C Reactive Protein Routine Complete Blood Count Auto Diff DAILY@0600 Creatine Kinase Total Routine Gamma Glutamyl Transpeptidase Routine Lactate Dehydrogenase Routine Liver Panel DAILY@0600 Magnesium Routine Prothrombin Time INR DAILY@0600 12/15/20 09:00 Mesalamine [Delzicol] 4,800 mg PO DAILY Omeprazole [PriLOSEC] 40 mg PO DAILY 12/15/20 09:57 Phytonadione (Vit K1) Oral [Vitamin K Oral] 10 mg PO ONCE ONE 12/15/20 09:58 Vital Signs Q4H 12/15/20 11:00 Albumin Human 25 % [Kedbumin 25 %] 100 ml IV Q6H 12/15/20 13:25 Flu Vacc [id number](6mos up)/PF [Fluarix Quad ] 0.5 ml IM .ONCE ONE 12/15/20 13:51 Add Laboratory Test Urgent 12/15/20 Lunch Regular Diet 12/16/20 05:24 Basic Metabolic Panel DAILY@0600 Hemoglobin and Hematocrit DAILY@0600 Liver Panel DAILY@0600 Prothrombin Time INR DAILY@0600 12/16/20 09:56 Phytonadione (Vit K1) [Vitamin K] 10 mg 0.9 % Sodium Chloride [Ns] 50 ml IV ONCE 12/16/20 09:59 0.9 % Sodium Chloride [Ns] 1,000 ml IVCONT 250 mls/hr 12/16/20 Breakfast NPO Diet Albumin Human 25 % [Kedbumin 25 %] 100 ml IV Q1H 12/16/20 11:06 Cryoprecipitate Urgent 12/16/20 11:25 Other Ref Test - Misc Routine Prothrombin Time INR Urgent 12/16/20 Lunch Regular Diet 12/16/20 18:50 Partial Thromboplastin Time Routine 12/16/20 20:51 Partial Thromboplastin Time Routine Partial Thromboplastin Time Routine Prothrombin Time INR Routine Prothrombin Time INR Routine 12/17/20 02:27 Partial Thromboplastin Time Stat Prothrombin Time INR Stat 12/17/20 05:44 Complete Blood Count Auto Diff Routine Partial Thromboplastin Time Routine Prothrombin Time INR Routine 12/17/20 08:10 Red Blood Cells Urgent 12/17/20 08:11 Add Laboratory Test Urgent 12/17/20 08:38 Acetaminophen [Tylenol] 650 mg PO ONCE ONE 12/17/20 Breakfast NPO Diet 12/17/20 12:05 Phytonadione (Vit K1) [Vitamin K] 10 mg 0.9 % Sodium Chloride [Ns] 50 ml IV ONCE 12/17/20 14:04 Glycopyrrolate [Robinul] 0.2 mg .ROUTE .STK-MED ONE Lidocaine HCl 1 % MPF [Xylocaine 1 % MPF] 5 ml .ROUTE .STK-MED ONE 12/17/20 14:05 propofoL [Diprivan] 200 mg IVPUSH .STK-MED ONE 12/17/20 17:00 Phenylephrine HCL 1,000 mcg IVPUSH .STK-MED ONE 12/17/20 19:09 Cryoprecipitate Routine Fresh Frozen Plasma Routine Type and Screen Routine 12/18/20 05:36 Basic Metabolic Panel DAILY@0600 Complete Blood Count no Diff DAILY@0600 D Dimer Routine Fibrinogen Routine Partial Thromboplastin Time Routine Prothrombin Time INR DAILY@0600 12/18/20 12:22 Partial Thromboplastin Time Routine Prothrombin Time INR Routine 12/18/20 18:14 Partial Thromboplastin Time Routine Prothrombin Time INR Routine 12/19/20 06:01 Basic Metabolic Panel DAILY@0600 Hemoglobin and Hematocrit DAILY@0600 Partial Thromboplastin Time Routine Prothrombin Time INR DAILY@0600 Laboratory Last Values WBC 3.3 X10*3/uL (4.8-10.8) L 12/18/20 05:36 RBC 2.78 X10*6/uL (4.60-5.80) L 12/18/20 05:36 Hgb 8.6 g/dl (14.0-18.0) L 12/19/20 06:01 Hct 25.9 % (42-52) L 12/19/20 06:01 MCV 95.7 fL (80-98) 12/18/20 05:36 MCH 32.0 pg (27.0-33.0) 12/18/20 05:36 MCHC 33.5 g/dl (31.0-36.0) 12/18/20 05:36 RDW 15.5 % (11.0-16.0) 12/18/20 05:36 Plt Count 128 X10*3/uL (160-400) L 12/18/20 05:36 MPV 9.6 fL (9.4-12.4) 12/18/20 05:36 Immature Gran % (Auto) 0.3 % (0.0-0.4) 12/17/20 05:44 Neut % (Auto) 46.9 % (45-73) 12/17/20 05:44 Lymph % (Auto) 34.5 % (20-40) 12/17/20 05:44 [place] % (Auto) 12.7 % (2-11) H 12/17/20 05:44 Eos % (Auto) 4.8 % (0-4) H 12/17/20 05:44 Baso % (Auto) 0.8 % (0-2) 12/17/20 05:44 Lymph # (Auto) 1.4 X10*3/uL (1.2-4.9) 12/17/20 05:44 [place] # (Auto) 0.5 X10*3/uL (0.1-1.2) 12/17/20 05:44 Eos # (Auto) 0.2 X10*3/uL (0.0-0.4) 12/17/20 05:44 Baso # (Auto) 0.0 X10*3/uL (0.0-0.2) 12/17/20 05:44 Abs Immat Gran (auto) 0.01 X10*3/uL (0.00-0.03) 12/17/20 05:44 Absolute Neuts (auto) 1.9 X10*3/uL (2.0-8.3) L 12/17/20 05:44 Absolute Nucleated RBC 0.000 X10*3/uL (0.0-0.012) 12/18/20 05:36 Nucleated RBC % (auto) 0.0 /100WBC (0.0-0.2) 12/18/20 05:36 PT 25.6 SEC (10.8-13.0) H D 12/19/20 06:01 INR 2.1 (0.9-1.1) H 12/19/20 06:01 APTT 78.7 SEC (24.1-38.0) H* D 12/19/20 06:01 Fibrinogen 286 MG/DL (259-690) 12/18/20 05:36 D-Dimer 5018 NG/ML 12/18/20 05:36 Sodium 139 mmol/L (135-145) 12/19/20 06:01 Potassium 4.2 mmol/L (3.3-5.1) 12/19/20 06:01 Chloride 110 mmol/L (96-108) H 12/19/20 06:01 Carbon Dioxide 23 mmol/L (22-29) 12/19/20 06:01 Anion Gap 10 (12-20) L 12/19/20 06:01 BUN 7 mg/dL (9-16) L 12/19/20 06:01 Creatinine 0.87 mg/dL (0.5-1.4) 12/19/20 06:01 Estim Creat Clear Calc 118.5 12/19/20 06:01 Estimated GFR > 60 12/19/20 06:01 Random Glucose 152 mg/dL (60-115) H 12/19/20 06:01 Calcium 8.3 mg/dL (8.4-10.2) L 12/19/20 06:01 Magnesium 1.6 mg/dL (1.6-2.6) 12/15/20 07:42 Total Bilirubin 3.9 mg/dL (0.0-1.0) H 12/16/20 05:24 Direct Bilirubin 2.5 mg/dL (0.0-0.5) H 12/16/20 05:24 GGT 224 U/L (11-51) H 12/15/20 07:42 AST 59 U/L (5-37) H 12/16/20 05:24 ALT 23 U/L (0-40) 12/16/20 05:24 Alkaline Phosphatase 257 U/L (39-117) H 12/16/20 05:24 Ammonia 31 umol/L (13-55) 12/14/20 19:43 Lactate Dehydrogenase 268 U/L (118-273) 12/15/20 07:42 Total Creatine Kinase 152 U/L (38-174) 12/15/20 07:42 C-Reactive Protein 1.58 mg/dL (< or = 0.50) H 12/15/20 07:42 Total Protein 5.8 g/dL (6.5-8.0) L 12/16/20 05:24 Albumin 2.0 g/dL (3.5-5.0) L D 12/16/20 05:24 Stool Occult Blood POS (NEG) 12/14/20 15:28 COVID-19 (ADELA) Negative (Negative) 12/14/20 18:17 COVID-19 Clin Com See Note 12/14/20 18:17 Ref Lab Test Result See Note 12/16/20 11:25 Blood Type O Positive 12/17/20 19:09 Antibody Screen NEGATIVE 12/17/20 19:09 Crossmatch See Detail 12/14/20 15:51 - Imaging Radiologist's impression: ITS Impressions Chest X-Ray 12/14/20 12:28 IMPRESSION: Unremarkable chest exam. Progress Note: A/P (1) Coagulopathy Start date: 12/20/20 Status: Acute - Time Spent With Patient Total time spent is greater than 50% in coordination of care (as documented) at patient's floor/unit and/or counseling patient: less than 15 minutes
--- NOTE | 2020-12-20 14:53 | HO.PM.IMPN ---
Subjective Subjective Date of Service: 12/20/20 Interval History: Coagulopathy Review of Systems Patient denies any chest pain or shortness of breath or abdominal pain or fever or chills or urinary complaints No episode of gross bleeding. Physical Exam Vital Signs: Vital Signs: Last Vital Signs Temp 97.3 F 12/20/20 12:00 Pulse 59 12/20/20 12:00 Resp 16 12/20/20 11:39 BP 121/76 12/20/20 12:00 Pulse Ox 98 12/20/20 12:00 Body Mass Index 38.0 Physical exam: Constitutional: Not in acute distress. Cvs: rrr, [id number] , no murmur res: clear to auscultation ,no rhonchii or wheezing abd: no rebound or guarding ,nt, bs present. ext pulses present , no cyanosis neuro: axo3 , nonfocal. Objective Data Current Medications Generic Name Dose Route Start Last Admin Trade Name Freq PRN Reason Stop Dose Admin Docusate Sodium 100 mg 12/14/20 23:08 Docusate Sodium 100 Mg Capsule PO DAILY PRN Constipation Ferrous Sulfate 324 mg 12/15/20 09:00 12/20/20 14:20 Ferrous Sulfate 324 Mg Tablet. PO 324 mg TID BIANCA Administration Guaifenesin 10 ml 12/15/20 02:45 12/16/20 14:56 Guaifenesin 200 Mg/10 Ml 10 Ml Liquid PO 10 ml Q6H PRN Administration Cough Hydroxyzine HCl 25 mg 12/14/20 23:08 12/19/20 21:54 Hydroxyzine Hcl 25 Mg Tablet PO 25 mg BEDTIME BIANCA Administration Mesalamine 1,600 mg 12/19/20 09:00 12/20/20 14:20 Mesalamine 400 Mg Cap.Drtab. PO 1,600 mg TID BIANCA Administration Methylprednisolone Sodium Succinate 40 mg 12/17/20 18:45 12/19/20 18:13 Methylprednisolone Sod Succ/Pf 40 Mg/Ml Vial IVPUSH 40 mg Q24H BIANCA Administration Naloxone HCl 0.04 mg 12/17/20 15:42 Naloxone Hcl 0.4 Mg/Ml Vial IVPUSH Q5M PRN Respiratory Rate < 8 Omeprazole 40 mg 12/15/20 08:30 12/20/20 09:02 Omeprazole 40 Mg Capsule. PO 40 mg BIDPC BIANCA Administration Ondansetron HCl 4 mg 12/14/20 23:08 Ondansetron Hcl 4 Mg/2 Ml Vial IVPUSH Q8H PRN Nausea and Vomiting Pharmacy Consult 1 each 12/14/20 16:58 Consult Rx Perform Med Rec MISCELLANE ONCE PRN Consult order Propranolol HCl 10 mg 12/14/20 23:08 12/20/20 09:02 Propranolol Hcl 10 Mg Tablet PO 10 mg BID BIANCA Administration Protocol Sodium Chloride 3 ml 12/15/20 00:00 12/20/20 09:02 0.9 % Sodium Chloride Flush 3 Ml Syringe IVFLUSH 3 ml QSHIFT BIANCA Administration Spironolactone 25 mg 12/15/20 09:00 12/20/20 09:01 Spironolactone 25 Mg Tablet PO 25 mg DAILY BIANCA Administration Protocol Labs CBC & Chem 7: 12/20/20 05:54 12/19/20 06:01 Assessment and Plan (1) Coagulopathy: Status: Acute (2) Hypoalbuminemia: Status: Acute (3) Advanced hepatic cirrhosis: Status: Acute (4) Alcohol abuse: Status: Acute (5) Anemia: Status: Acute Assessment and Plan: 55 year old AA male with 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 Labs show improvement in LFT (since he quitted ETOH) and significant worsening of coaguloapthy with INR > 26 (increased from 2.2 on 11/27/20). 1.Coagulopathy-probable related to liver disease, Initial INR >26, ddimer >49470 On admission patient received FFPx8 , cryo x6 , 1 prbc and IV vitamin Kx3 days Patient denies any gingival bleeding or any blood in the stool today PT PTT INR-320/200/ 26. hb/hct: 9.1/27 ,platlets : 137. d/w hematology and GI: Give FFP and cryo q.6 hour, repeat PT PTT INR after 1st cryo and FFP. Will give vitamin K iv 4th dose also. Already ordered to FFP and 2 cryo, and blood bank is aware if we need more I will add more. Also will give vitamin K IV also check viatmin k levels 2.Liver disease with coagulopathy, portal HTN, thrombocytopenia, grade 1 esophageal varices c/ ascites Has ascites blood pressure acceptable. continue propranolol, spironolactone. Coagulopathy probably related to multifactorial issues: Poor oral nutrition, question if have coagulation factor deficiency,? Vitamin K deficiency. 3.anemia-Anemia probably acute on chronic blood loss: Had a gingival oozing for sometime as per the patient at home, also has ulcerative colitis which might be contributing. H/H at baseline heme + stool. h/o UC, frequently sees blood on toilet paper patient will be going for colonoscopy : Probable ulcerative colitis flare-started on IV steroid. Continue IV Solu-Medrol. Gi following 4.h/o etoh abuse:no etoh since august 5.UC-continue mesalamine, solumedrol. dvt ppx - chemoprophylaxis CI due to elevated INR
[2020-12-20 15:31] LABS: INTERNATIONAL NORM RATIO 2.1 (0.9-1.1); Prothrombin Time 25.4 SEC (10.8-13.0)
[2020-12-20 15:34] LABS: Partial Thromboplastin Time 72.3 SEC (24.1-38.0)
[2020-12-20] MEDS: Phytonadione (Vit K1) 10 MG in 0.9 % Sodium Chloride 50 ML 51 MG IV (16:00)
--- NOTE | 2020-12-20 16:01 | PM.GIPN ---
Subjective Subjective Date of Service: 12/20/20 Interval History: PTT, and PT again markedly elevated he feels well since being on treatment for colitis minimal diarrhea, no confusion or tremor, no ankle edema or aincreased abdo distention no bleeding overtly did admit he has been on liquids and fruit before coming in for a long time Physical Exam Vital Signs: Vital Signs: Last Vital Signs Temp 97.9 F 12/20/20 15:37 Pulse 62 12/20/20 15:37 Resp 18 12/20/20 15:37 BP 109/63 12/20/20 15:37 Pulse Ox 99 12/20/20 15:37 Body Mass Index 38.0 Const: General: cooperative Nutritional Appearance: well nourished, obese and Edematous Orientation/consciousness: patient oriented x3 Limitations: No language barrier HENMT: Head: Yes normocephalic and Yes atraumatic Eyes: Sclerae: sclerae normal Chest: Chest palpation & inspection: normal inspection of the chest Resp: Effort & Inspection: normal respiratory effort, able to speak in complete sentences, no cough, no pursed lip breathing and no respiratory distress Auscultation: clear to auscultation bilaterally and diminished lung sounds Cardio: Rate: regular rate Rhythm: regular rhythm GI: Inspection: Yes distended and Yes obesity Palpation (GI): no masses and Ascites present Auscultation: normal bowel sounds Rectal Exam - Male: Yes deferred Skin: General skin exam: no rashes or lesions noted Neuro: General: patient oriented x3 Cranial nerves: Yes CN's II-XII intact bilaterally and Yes Bilaterally intact EOM present Extrem: Other: edema lower extremities R>L General: Yes normal to inspection, Yes edema and Yes venous stasis dermatitis Objective Data Labs CBC & Chem 7: 12/20/20 05:54 12/19/20 06:01 Labs: Laboratory Results - last 24 hr 12/17/20 12/20/20 12/20/20 19:09 05:54 05:54 Hgb 9.1 L Hct 27.0 L Plt Count 137 L PT > 320.0 H D INR > 26.0 H* D APTT > 200.0 H* D Total Bilirubin Direct Bilirubin AST ALT Alkaline Phosphatase Total Protein Albumin Blood Type O Positive Antibody Screen NEGATIVE 12/20/20 12/20/20 05:54 15:01 Hgb Hct Plt Count PT 25.4 H D INR 2.1 H APTT 72.3 H* D Total Bilirubin 2.9 H Direct Bilirubin 1.9 H AST 53 H ALT 23 Alkaline Phosphatase 210 H Total Protein 6.1 L Albumin 2.3 L Blood Type Antibody Screen Progress Note: A&P Assessment and plan (1) Coagulopathy: Status: Acute (2) Hypoalbuminemia: Status: Acute (3) Advanced hepatic cirrhosis: Status: Acute (4) Alcohol abuse: Status: Acute (5) Anemia: Status: Acute Assessment and Plan: 55 year old AA male with ESLD 2/2 ETOH abuse complicated by portal hypertension, coagulopathy, thrombocytopenia and 1+ esophageal varices (on past EGD) being assessed for uncontrolled colitis and coagulopathy which I think may either be due to severe dietary insufficiency, malabsorption vs acquired inhibtor def, no evidence clinically of fulminant liver failure 1.Coagulopathy-probable related to liver disease, and diet issues, possible inhibitor def check vit K level give further IV vit K 10 mg today await mixing studies ordered by heme await fecal fat and elastase 2.Liver disease with coagulopathy, portal HTN, thrombocytopenia, grade 1 esophageal varices continue propranolol, spironolactone. 3.anemia- multifactorial, due to coagulopathy, liver dz and diet, colitis cont to monitor, encourage PO diet, supplements 4.UC-continue mesalamine, solumedrol, convert to PO pred 40 mg tomorrow with long taper Fall Risk Details Current Medications: Current Medications Generic Name Dose Route Start Last Admin Trade Name Freq PRN Reason Stop Dose Admin Docusate Sodium 100 mg 12/14/20 23:08 Docusate Sodium 100 Mg Capsule PO DAILY PRN Constipation Ferrous Sulfate 324 mg 12/15/20 09:00 12/20/20 14:20 Ferrous Sulfate 324 Mg Tablet. PO 324 mg TID BIANCA Administration Guaifenesin 10 ml 12/15/20 02:45 12/16/20 14:56 Guaifenesin 200 Mg/10 Ml 10 Ml Liquid PO 10 ml Q6H PRN Administration Cough Hydroxyzine HCl 25 mg 12/14/20 23:08 12/19/20 21:54 Hydroxyzine Hcl 25 Mg Tablet PO 25 mg BEDTIME BIANCA Administration Phytonadione 10 mg/ Sodium 51 mls @ 51 mls/hr 12/20/20 15:13 12/20/20 16:00 Chloride IV 12/20/20 16:12 51 mls/hr ONCE ONE Administration Mesalamine 1,600 mg 12/19/20 09:00 12/20/20 14:20 Mesalamine 400 Mg Cap.Drtab. PO 1,600 mg TID BIANCA Administration Methylprednisolone Sodium Succinate 40 mg 12/17/20 18:45 12/19/20 18:13 Methylprednisolone Sod Succ/Pf 40 Mg/Ml Vial IVPUSH 40 mg Q24H BIANCA Administration Naloxone HCl 0.04 mg 12/17/20 15:42 Naloxone Hcl 0.4 Mg/Ml Vial IVPUSH Q5M PRN Respiratory Rate < 8 Omeprazole 40 mg 12/15/20 08:30 12/20/20 16:01 Omeprazole 40 Mg Capsule.Dr PO 40 mg BIDPC BIANCA Administration Ondansetron HCl 4 mg 12/14/20 23:08 Ondansetron Hcl 4 Mg/2 Ml Vial IVPUSH Q8H PRN Nausea and Vomiting Pharmacy Consult 1 each 12/14/20 16:58 Consult Rx Perform Med Rec MISCELLANE ONCE PRN Consult order Propranolol HCl 10 mg 12/14/20 23:08 12/20/20 09:02 Propranolol Hcl 10 Mg Tablet PO 10 mg BID BIANCA Administration Protocol Sodium Chloride 3 ml 12/15/20 00:00 12/20/20 16:01 0.9 % Sodium Chloride Flush 3 Ml Syringe IVFLUSH 3 ml QSHIFT BIANCA Administration Spironolactone 25 mg 12/15/20 09:00 12/20/20 09:01 Spironolactone 25 Mg Tablet PO 25 mg DAILY BIANCA Administration Protocol Time Spent With Patient Time: Total time spent is greater than 50% in coordination of care (as documented) at patient's floor/unit and/or counseling patient:also communicating with dr Quinn of hematology to co ordinate and discuss care Time with patient: Greater than 35 minutes
[2020-12-20] MEDS: hydrOXYzine HCL 25 MG TABLET PO (20:15)
[2020-12-21] VITALS (13 sets, daily range): BP systolic 106–149; BP diastolic 55–87; PULSE 58–72; RESP 16–20; TEMP 36.4–37.5; O2SAT 98–99
[2020-12-21] MEDS: 0.9 % Sodium Chloride Flush 3 ML SYRINGE IVFLUSH ×4 (00:21→20:37)
[2020-12-21 06:13] LABS: Hematocrit 27.6 % (42-52); Hemoglobin 9.3 g/dl (14.0-18.0); Mean Corpuscular HGB Conc 33.7 g/dl (31.0-36.0); Mean Corpuscular Hemoglobin 31.8 pg (27.0-33.0); Mean Corpuscular Volume 94.5 fL (80-98); Mean Platelet Volume 9.9 fL (9.4-12.4); NRBC Pct Auto 0.2 /100WBC (0.0-0.2); Platelet Count 123 X10*3/uL (160-400); Red Blood Count 2.92 X10*6/uL (4.60-5.80); White Blood Count 8.5 X10*3/uL (4.8-10.8)
[2020-12-21 06:17] LABS: INTERNATIONAL NORM RATIO 1.9 (0.9-1.1)
[2020-12-21 06:20] LABS: Partial Thromboplastin Time 48.7 SEC (24.1-38.0)
[2020-12-21 06:43] LABS: Anion Gap 8 (12-20); Blood Urea Nitrogen 12 mg/dL (9-16); Calcium 7.9 mg/dL (8.4-10.2); Carbon Dioxide 27 mmol/L (22-29); Chloride 109 mmol/L (96-108); Creatinine Clr Calc Pharmacy 130.5; Estimated Glomerular Filt Rate > 60; Glucose Random 98 mg/dL (60-115); Potassium 3.8 mmol/L (3.3-5.1); Sodium 140 mmol/L (135-145)
[2020-12-21] MEDS: Mesalamine 400 MG CAP.DRTAB. 1600 MG PO ×3 (09:19→20:36)
[2020-12-21] MEDS: Omeprazole 40 MG CAPSULE.DR PO ×2 (09:19→16:34)
[2020-12-21] MEDS: Spironolactone 25 MG TABLET PO (09:20)
[2020-12-21] MEDS: Ferrous Sulfate 324 MG TABLET.DR PO ×3 (09:20→20:36)
[2020-12-21] MEDS: Propranolol HCL 10 MG TABLET PO ×2 (09:20→20:36)
--- NOTE | 2020-12-21 10:26 | PM.HEMONCPN ---
Medical Summary - Medical Summary Date of Service: 12/21/20 Chief complaint: tired of being in the hospital, wants to go home Interval History Interval history: Patient offers no new complaints other than being upset about having to stay in the hospital of few more days. He denies chest pain, shortness of breath, abdominal pain or distension. He continues to have diarrhea, he had 5 bowel movements yesterday which were loose. He denies hematochezia or melena. No cough or hemoptysis. [facility] Medical History: Medical History (Last Reviewed 12/17/20 @ 15:27 by Rell Cisneros MD) Alcohol abuse Anemia Coagulopathy Fatty liver Hypoalbuminemia 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 Mother No problems noted. Daughter No problems noted. Son No problems noted. Surgical History: Surgical History (Last Reviewed 12/17/20 @ 15:27 by Rell Cisneros MD) History of esophagogastroduodenoscopy (EGD) Hx of colonoscopy Social History: Social History (Last Reviewed 12/17/20 @ 15:27 by Rell Cisneros MD) Living Situation History: Household Members: Spouse Housing: House Alcohol History: Alcohol intake: former Alcohol History Details: Alcohol intake frequency: holiday/special occasion Occupation Assessmet: service: No Current occupational status: unemployed Smoking status: Never smoker Oncology Screenings - ECOG Performance Status ECOG Performance Status: 2 Home Medications and Allergies Current Medications: Current Medications Generic Name Dose Route Start Last Admin Trade Name Freq PRN Reason Stop Dose Admin Docusate Sodium 100 mg 12/14/20 23:08 Docusate Sodium 100 Mg Capsule PO DAILY PRN Constipation Ferrous Sulfate 324 mg 12/15/20 09:00 12/21/20 09:20 Ferrous Sulfate 324 Mg Tablet. PO 324 mg TID BIANCA Administration Guaifenesin 10 ml 12/15/20 02:45 12/16/20 14:56 Guaifenesin 200 Mg/10 Ml 10 Ml Liquid PO 10 ml Q6H PRN Administration Cough Hydroxyzine HCl 25 mg 12/14/20 23:08 12/20/20 20:15 Hydroxyzine Hcl 25 Mg Tablet PO 25 mg BEDTIME BIANCA Administration Mesalamine 1,600 mg 12/19/20 09:00 12/21/20 09:19 Mesalamine 400 Mg Cap.Drtab. PO 1,600 mg TID BIANCA Administration Methylprednisolone Sodium Succinate 40 mg 12/17/20 18:45 12/20/20 19:48 Methylprednisolone Sod Succ/Pf 40 Mg/Ml Vial IVPUSH 40 mg Q24H BIANCA Administration Naloxone HCl 0.04 mg 12/17/20 15:42 Naloxone Hcl 0.4 Mg/Ml Vial IVPUSH Q5M PRN Respiratory Rate < 8 Omeprazole 40 mg 12/15/20 08:30 12/21/20 09:19 Omeprazole 40 Mg Capsule.Dr PO 40 mg BIDPC BIANCA Administration Ondansetron HCl 4 mg 12/14/20 23:08 Ondansetron Hcl 4 Mg/2 Ml Vial IVPUSH Q8H PRN Nausea and Vomiting Pharmacy Consult 1 each 12/14/20 16:58 Consult Rx Perform Med Rec MISCELLANE ONCE PRN Consult order Propranolol HCl 10 mg 12/14/20 23:08 12/21/20 09:20 Propranolol Hcl 10 Mg Tablet PO 10 mg BID BIANCA Administration Protocol Sodium Chloride 3 ml 12/15/20 00:00 12/21/20 09:20 0.9 % Sodium Chloride Flush 3 Ml Syringe IVFLUSH 3 ml QSHIFT BIANCA Administration Spironolactone 25 mg 12/15/20 09:00 12/21/20 09:20 Spironolactone 25 Mg Tablet PO 25 mg DAILY BIANCA Administration Protocol Allergies Allergy/AdvReac Type Severity Reaction Status Date / Time No Known Allergies Allergy Verified 12/10/20 09:59 [No Known Allergies*] Exam Vital signs: Vital Signs Temp 98.4 F 12/21/20 07:31 Pulse 62 12/21/20 09:20 Resp 20 12/21/20 07:31 BP 133/76 12/21/20 09:20 Pulse Ox 98 12/21/20 07:31 Intake & Output 12/20/20 12/21/20 12/21/20 18:59 06:59 18:59 Intake Total 946 / 1605 659 / 1605 Balance 946 / 1605 659 / 1605 Intake: Intake, Oral Amount 480 / 740 260 / 740 Intake (Blood Product) Amount 415 / 814 399 / 814 Thawed Cryoprecipitate (E3591) 115 / 115 Unit [id number] Thawed Cryoprecipitate (E3591) 110 / 110 Unit [id number] Thawed Plasma (E2720) Unit 300 / 300 [id number] Thawed Plasma (E2720) Unit 0 / 289 289 / 289 [id number] Intake, IV Amount Phytonadione (Vit K1) 10 mg In 0.9 % Sodium Chloride 50 ml @ 51 mls/hr IV ONCE ONE Rx#: [id number] Other: Breakfast % Eaten 100% Lunch % Eaten 75% Number of Unmeasured Voids 2 1 Urine Bathroom Bathroom Last Bowel Movement 12/20/20 Weight 113.3 kg Body Mass Index 38.0 - Constitutional Present: no acute distress - Routine HEENT Exam Head: Present: normal inspection - Routine Respiratory Exam Absent: respiratory distress - Routine Cardiovascular Exam Cardiovascular: Present: S1, S2 - Routine Abdominal Exam Present: distended, hypoactive bowel sounds - Routine Extremities Exam Present: pedal edema - Routine Skin Exam Present: intact - Routine Neurological Exam Present: oriented X3 Data - Labs CBC & Chem 7: 12/21/20 05:26 12/21/20 05:26 Labs: 12/14/20 Breakfast Clear Liquid Diet 12/14/20 12:28 XR chest 2V Stat 12/14/20 13:23 guaiFEN/Codeine SF 200/20/10ML [Robitussin AC 200/20/10ML] 10 ml PO ONCE ONE 12/14/20 13:34 Basic Metabolic Panel Stat Complete Blood Count Auto Diff Stat Liver Panel Stat 12/14/20 14:43 D Dimer Stat Fibrinogen Stat Partial Thromboplastin Time Stat Prothrombin Time INR Stat 12/14/20 15:13 Phytonadione (Vit K1) [Vitamin K] 10 mg 0.9 % Sodium Chloride [Ns] 50 ml IV ONCE 12/14/20 15:28 [id number] Stat 12/14/20 15:38 Add Laboratory Test Stat 12/14/20 15:51 Fresh Frozen Plasma Stat Type and Screen Stat 12/14/20 16:01 Pantoprazole Sodium [Protonix] 80 mg IVPUSH ONCE ONE 12/14/20 17:20 Transfer Order Routine 12/14/20 18:17 COVID-19 ID NOW (Laurent) Stat 12/14/20 19:43 Ammonia Stat 12/14/20 23:08 polyethylene glycoL 3350 [Miralax] 238 gm PO ONCE 12/15/20 07:42 Basic Metabolic Panel DAILY@0600 C Reactive Protein Routine Complete Blood Count Auto Diff DAILY@0600 Creatine Kinase Total Routine Gamma Glutamyl Transpeptidase Routine Lactate Dehydrogenase Routine Liver Panel DAILY@0600 Magnesium Routine Prothrombin Time INR DAILY@0600 12/15/20 09:00 Mesalamine [Delzicol] 4,800 mg PO DAILY Omeprazole [PriLOSEC] 40 mg PO DAILY 12/15/20 09:57 Phytonadione (Vit K1) Oral [Vitamin K Oral] 10 mg PO ONCE ONE 12/15/20 09:58 Vital Signs Q4H 12/15/20 11:00 Albumin Human 25 % [Kedbumin 25 %] 100 ml IV Q6H 12/15/20 13:25 Flu Vacc [id number](6mos up)/PF [Fluarix Quad [id number]] 0.5 ml IM .ONCE ONE 12/15/20 13:51 Add Laboratory Test Urgent 12/15/20 Lunch Regular Diet 12/16/20 05:24 Basic Metabolic Panel DAILY@0600 Hemoglobin and Hematocrit DAILY@0600 Liver Panel DAILY@0600 Prothrombin Time INR DAILY@0600 12/16/20 09:56 Phytonadione (Vit K1) [Vitamin K] 10 mg 0.9 % Sodium Chloride [Ns] 50 ml IV ONCE 12/16/20 09:59 0.9 % Sodium Chloride [Ns] 1,000 ml IVCONT 250 mls/hr 12/16/20 Breakfast NPO Diet Albumin Human 25 % [Kedbumin 25 %] 100 ml IV Q1H 12/16/20 11:06 Cryoprecipitate Urgent 12/16/20 11:25 Other Ref Test - Misc Routine Prothrombin Time INR Urgent 12/16/20 Lunch Regular Diet 12/16/20 18:50 Partial Thromboplastin Time Routine 12/16/20 20:51 Partial Thromboplastin Time Routine Partial Thromboplastin Time Routine Prothrombin Time INR Routine Prothrombin Time INR Routine 12/17/20 02:27 Partial Thromboplastin Time Stat Prothrombin Time INR Stat 12/17/20 05:44 Complete Blood Count Auto Diff Routine Partial Thromboplastin Time Routine Prothrombin Time INR Routine 12/17/20 08:10 Red Blood Cells Urgent 12/17/20 08:11 Add Laboratory Test Urgent 12/17/20 08:38 Acetaminophen [Tylenol] 650 mg PO ONCE ONE 12/17/20 Breakfast NPO Diet 12/17/20 12:05 Phytonadione (Vit K1) [Vitamin K] 10 mg 0.9 % Sodium Chloride [Ns] 50 ml IV ONCE 12/17/20 14:04 Glycopyrrolate [Robinul] 0.2 mg .ROUTE .STK-MED ONE Lidocaine HCl 1 % MPF [Xylocaine 1 % MPF] 5 ml .ROUTE .STK-MED ONE 12/17/20 14:05 propofoL [Diprivan] 200 mg IVPUSH .STK-MED ONE 12/17/20 17:00 Phenylephrine HCL 1,000 mcg IVPUSH .STK-MED ONE 12/17/20 19:09 Cryoprecipitate Routine Fresh Frozen Plasma Routine Type and Screen Routine 12/18/20 05:36 Basic Metabolic Panel DAILY@0600 Complete Blood Count no Diff DAILY@0600 D Dimer Routine Fibrinogen Routine Partial Thromboplastin Time Routine Prothrombin Time INR DAILY@0600 12/18/20 12:22 Partial Thromboplastin Time Routine Prothrombin Time INR Routine 12/18/20 18:14 Partial Thromboplastin Time Routine Prothrombin Time INR Routine 12/19/20 06:01 Basic Metabolic Panel DAILY@0600 Hemoglobin and Hematocrit DAILY@0600 Partial Thromboplastin Time Routine Prothrombin Time INR DAILY@0600 Laboratory Last Values WBC 3.3 X10*3/uL (4.8-10.8) L 12/18/20 05:36 RBC 2.78 X10*6/uL (4.60-5.80) L 12/18/20 05:36 Hgb 8.6 g/dl (14.0-18.0) L 12/19/20 06:01 Hct 25.9 % (42-52) L 12/19/20 06:01 MCV 95.7 fL (80-98) 12/18/20 05:36 MCH 32.0 pg (27.0-33.0) 12/18/20 05:36 MCHC 33.5 g/dl (31.0-36.0) 12/18/20 05:36 RDW 15.5 % (11.0-16.0) 12/18/20 05:36 Plt Count 128 X10*3/uL (160-400) L 12/18/20 05:36 MPV 9.6 fL (9.4-12.4) 12/18/20 05:36 Immature Gran % (Auto) 0.3 % (0.0-0.4) 12/17/20 05:44 Neut % (Auto) 46.9 % (45-73) 12/17/20 05:44 Lymph % (Auto) 34.5 % (20-40) 12/17/20 05:44 Placer % (Auto) 12.7 % (2-11) H 12/17/20 05:44 Eos % (Auto) 4.8 % (0-4) H 12/17/20 05:44 Baso % (Auto) 0.8 % (0-2) 12/17/20 05:44 Lymph # (Auto) 1.4 X10*3/uL (1.2-4.9) 12/17/20 05:44 Placer # (Auto) 0.5 X10*3/uL (0.1-1.2) 12/17/20 05:44 Eos # (Auto) 0.2 X10*3/uL (0.0-0.4) 12/17/20 05:44 Baso # (Auto) 0.0 X10*3/uL (0.0-0.2) 12/17/20 05:44 Abs Immat Gran (auto) 0.01 X10*3/uL (0.00-0.03) 12/17/20 05:44 Absolute Neuts (auto) 1.9 X10*3/uL (2.0-8.3) L 12/17/20 05:44 Absolute Nucleated RBC 0.000 X10*3/uL (0.0-0.012) 12/18/20 05:36 Nucleated RBC % (auto) 0.0 /100WBC (0.0-0.2) 12/18/20 05:36 PT 25.6 SEC (10.8-13.0) H D 12/19/20 06:01 INR 2.1 (0.9-1.1) H 12/19/20 06:01 APTT 78.7 SEC (24.1-38.0) H* D 12/19/20 06:01 Fibrinogen 286 MG/DL (259-690) 12/18/20 05:36 D-Dimer 5018 NG/ML 12/18/20 05:36 Sodium 139 mmol/L (135-145) 12/19/20 06:01 Potassium 4.2 mmol/L (3.3-5.1) 12/19/20 06:01 Chloride 110 mmol/L (96-108) H 12/19/20 06:01 Carbon Dioxide 23 mmol/L (22-29) 12/19/20 06:01 Anion Gap 10 (12-20) L 12/19/20 06:01 BUN 7 mg/dL (9-16) L 12/19/20 06:01 Creatinine 0.87 mg/dL (0.5-1.4) 12/19/20 06:01 Estim Creat Clear Calc 118.5 12/19/20 06:01 Estimated GFR > 60 12/19/20 06:01 Random Glucose 152 mg/dL (60-115) H 12/19/20 06:01 Calcium 8.3 mg/dL (8.4-10.2) L 12/19/20 06:01 Magnesium 1.6 mg/dL (1.6-2.6) 12/15/20 07:42 Total Bilirubin 3.9 mg/dL (0.0-1.0) H 12/16/20 05:24 Direct Bilirubin 2.5 mg/dL (0.0-0.5) H 12/16/20 05:24 GGT 224 U/L (11-51) H 12/15/20 07:42 AST 59 U/L (5-37) H 12/16/20 05:24 ALT 23 U/L (0-40) 12/16/20 05:24 Alkaline Phosphatase 257 U/L (39-117) H 12/16/20 05:24 Ammonia 31 umol/L (13-55) 12/14/20 19:43 Lactate Dehydrogenase 268 U/L (118-273) 12/15/20 07:42 Total Creatine Kinase 152 U/L (38-174) 12/15/20 07:42 C-Reactive Protein 1.58 mg/dL (< or = 0.50) H 12/15/20 07:42 Total Protein 5.8 g/dL (6.5-8.0) L 12/16/20 05:24 Albumin 2.0 g/dL (3.5-5.0) L D 12/16/20 05:24 Stool Occult Blood POS (NEG) 12/14/20 15:28 COVID-19 (ADELA) Negative (Negative) 12/14/20 18:17 COVID-19 Clin Com See Note 12/14/20 18:17 Ref Lab Test Result See Note 12/16/20 11:25 Blood Type O Positive 12/17/20 19:09 Antibody Screen NEGATIVE 12/17/20 19:09 Crossmatch See Detail 12/14/20 15:51 - Imaging Radiologist's impression: ITS Impressions Chest X-Ray 12/14/20 12:28 IMPRESSION: Unremarkable chest exam. Progress Note: A/P (1) Coagulopathy Status: Acute Assessment and plan: 1. This is a 55-year-old male admitted with severe coagulopathy, underlying liver disease and ulcerative colitis. He has elevation of both PT/INR and PTT. His thrombin time has been resulted at 49 which is quite elevated. This is consistent with hypo or dysfibrinogenemia which is usually from liver disease or DIC. He also must have either deficiency or inhibitor to common pathway factors which is factor 2 or prothrombin, factor 5 and factor 10. Since mixing studies are still not back from [facility], blood was drawn again today to be sent to [facility] for both mixing studies and factor levels. Administer cryoprecipitate and FFP this afternoon and recheck PT, PTT at 18:00. Thank you, will follow. - Time Spent With Patient Total time spent is greater than 50% in coordination of care (as documented) at patient's floor/unit and/or counseling patient: 25 - 35 minutes
--- NOTE | 2020-12-21 13:13 | HO.PM.IMPN ---
Subjective Subjective Date of Service: 12/21/20 Interval History: no complaints Cardiovascular Cardiovascular: Reports no additional cardiovascular complaints Gastrointestinal Gastrointestinal: Reports no additional gastrointestinal complaints Physical Exam Vital Signs: Vital Signs: Last Vital Signs Temp 98.4 F 12/21/20 12:37 Pulse 67 12/21/20 12:37 Resp 18 12/21/20 12:37 BP 149/87 H 12/21/20 12:37 Pulse Ox 99 12/21/20 11:17 Body Mass Index 38.0 General: AO X 3, no acute distress Resp: CTA bilateral CVS: S1,S2,RRR GI: soft, non tender, non distended Neuro: motor grossly intact Psych: appropriate affect Objective Data Current Medications Generic Name Dose Route Start Last Admin Trade Name Freq PRN Reason Stop Dose Admin Docusate Sodium 100 mg 12/14/20 23:08 Docusate Sodium 100 Mg Capsule PO DAILY PRN Constipation Ferrous Sulfate 324 mg 12/15/20 09:00 12/21/20 09:20 Ferrous Sulfate 324 Mg Tablet. PO 324 mg TID BIANCA Administration Guaifenesin 10 ml 12/15/20 02:45 12/16/20 14:56 Guaifenesin 200 Mg/10 Ml 10 Ml Liquid PO 10 ml Q6H PRN Administration Cough Hydroxyzine HCl 25 mg 12/14/20 23:08 12/20/20 20:15 Hydroxyzine Hcl 25 Mg Tablet PO 25 mg BEDTIME BIANCA Administration Mesalamine 1,600 mg 12/19/20 09:00 12/21/20 09:19 Mesalamine 400 Mg Cap.Drtab. PO 1,600 mg TID BIANCA Administration Methylprednisolone Sodium Succinate 40 mg 12/17/20 18:45 12/20/20 19:48 Methylprednisolone Sod Succ/Pf 40 Mg/Ml Vial IVPUSH 40 mg Q24H BIANCA Administration Naloxone HCl 0.04 mg 12/17/20 15:42 Naloxone Hcl 0.4 Mg/Ml Vial IVPUSH Q5M PRN Respiratory Rate < 8 Omeprazole 40 mg 12/15/20 08:30 12/21/20 09:19 Omeprazole 40 Mg Capsule. PO 40 mg BIDPC BIANCA Administration Ondansetron HCl 4 mg 12/14/20 23:08 Ondansetron Hcl 4 Mg/2 Ml Vial IVPUSH Q8H PRN Nausea and Vomiting Pharmacy Consult 1 each 12/14/20 16:58 Consult Rx Perform Med Rec MISCELLANE ONCE PRN Consult order Propranolol HCl 10 mg 12/14/20 23:08 12/21/20 09:20 Propranolol Hcl 10 Mg Tablet PO 10 mg BID BIANCA Administration Protocol Sodium Chloride 3 ml 12/15/20 00:00 12/21/20 09:20 0.9 % Sodium Chloride Flush 3 Ml Syringe IVFLUSH 3 ml QSHIFT BIANCA Administration Spironolactone 25 mg 12/15/20 09:00 12/21/20 09:20 Spironolactone 25 Mg Tablet PO 25 mg DAILY BIANCA Administration Protocol Labs CBC & Chem 7: 12/21/20 05:26 12/21/20 05:26 Assessment and Plan (1) Coagulopathy: Status: Acute (2) Hypoalbuminemia: Status: Acute (3) Advanced hepatic cirrhosis: Status: Acute (4) Alcohol abuse: Status: Acute (5) Anemia: Status: Acute Assessment and Plan: 55 male presented with hemoptysis and gingival bleeding Coagulopathy-probable Daily FFP and cryo Follow-up Hematology Monitor coags daily Alcoholic cirrhosis Continue propranolol, Aldactone Ulcerative colitis with flare Continue mesalamine, Solu-Medrol
--- NOTE | 2020-12-21 14:38 | MHC.CM.PN ---
per rounds no dc date at th time cm will continue to follow
[2020-12-21 20:26] LABS: Mixing Study - PT 41.9 sec (9.0-11.5); PT Mix 12.8 sec (< OR = 11.5); PTT LA 107 sec (< OR = 40); PTT-LA Mix NOT CORRECTED
[2020-12-21] MEDS: hydrOXYzine HCL 25 MG TABLET PO (20:36)
[2020-12-22] VITALS (14 sets, daily range): BP systolic 100–134; BP diastolic 51–82; PULSE 54–77; RESP 16–20; TEMP 36.1–36.9; O2SAT 95–100
[2020-12-22 06:21] LABS: MANUAL DIFF FLAG NO
[2020-12-22 06:27] LABS: Hemoglobin 9.1 g/dl (14.0-18.0); Imm Gran Abs Auto 0.08 X10*3/uL (0.00-0.03); Imm Gran Pct Auto 1.5 % (0.0-0.4); Lymphocytes Percent Auto 19.5 % (20-40); Mean Corpuscular HGB Conc 33.7 g/dl (31.0-36.0); Mean Corpuscular Hemoglobin 31.6 pg (27.0-33.0); Mean Corpuscular Volume 93.8 fL (80-98); Mean Platelet Volume 9.5 fL (9.4-12.4); Monocytes Absolute Auto 0.3 X10*3/uL (0.1-1.2); Monocytes Percent Auto 5.6 % (2-11); NRBC Pct Auto 0.8 /100WBC (0.0-0.2); Neutrophils Absolute Auto 3.8 X10*3/uL (2.0-8.3); Neutrophils Percent Auto 73.4 % (45-73); Platelet Count 108 X10*3/uL (160-400); Red Blood Count 2.88 X10*6/uL (4.60-5.80); Red Cell Distribution Width 16.5 % (11.0-16.0); White Blood Count 5.2 X10*3/uL (4.8-10.8)
[2020-12-22 06:30] LABS: INTERNATIONAL NORM RATIO 1.9 (0.9-1.1); Prothrombin Time 22.4 SEC (10.8-13.0)
[2020-12-22 06:32] LABS: Partial Thromboplastin Time 41.9 SEC (24.1-38.0)
[2020-12-22 07:04] LABS: Anion Gap 9 (12-20); Blood Urea Nitrogen 11 mg/dL (9-16); Calcium 7.9 mg/dL (8.4-10.2); Carbon Dioxide 24 mmol/L (22-29); Chloride 108 mmol/L (96-108); Creatinine Clr Calc Pharmacy 128.9; Estimated Glomerular Filt Rate > 60; Glucose Fasting 142 mg/dL (60-99); Potassium 4.1 mmol/L (3.3-5.1); Sodium 137 mmol/L (135-145)
[2020-12-22 07:08] LABS: D Dimer 9200 NG/ML
[2020-12-22 07:42] LABS: PT Mix SEE ABOVE; PTT LA SEE ABOVE
[2020-12-22 07:43] LABS: Incubated PTT-LA Mix SEE ABOVE; PTT-LA Mix SEE ABOVE
[2020-12-22] MEDS: 0.9 % Sodium Chloride Flush 3 ML SYRINGE IVFLUSH ×3 (08:53→23:31)
[2020-12-22] MEDS: Mesalamine 400 MG CAP.DRTAB. 1600 MG PO ×3 (08:53→21:26)
[2020-12-22] MEDS: Spironolactone 25 MG TABLET PO (08:54)
[2020-12-22] MEDS: Ferrous Sulfate 324 MG TABLET.DR PO ×3 (08:54→21:26)
[2020-12-22] MEDS: Omeprazole 40 MG CAPSULE.DR PO ×2 (08:54→16:50)
--- NOTE | 2020-12-22 12:09 | P.PNIM_ITS ---
Subjective Subjective Date of Service: 12/22/20 Interval History: no complaints Cardiovascular Cardiovascular: Reports no additional cardiovascular complaints Gastrointestinal Gastrointestinal: Reports no additional gastrointestinal complaints Physical Exam Vital Signs: Vital Signs: Last Vital Signs Temp 97 F 12/22/20 11:09 Pulse 58 12/22/20 11:09 Resp 18 12/22/20 11:09 BP 121/78 12/22/20 11:09 Pulse Ox 100 12/22/20 11:09 Body Mass Index 38.0 General: AO X 3, no acute distress Resp: CTA bilateral CVS: S1,S2,RRR GI: soft, non tender, non distended Neuro: motor grossly intact Psych: appropriate affect Objective Data Current Medications Generic Name Dose Route Start Last Admin Trade Name Freq PRN Reason Stop Dose Admin Docusate Sodium 100 mg 12/14/20 23:08 Docusate Sodium 100 Mg Capsule PO DAILY PRN Constipation Ferrous Sulfate 324 mg 12/15/20 09:00 12/22/20 08:54 Ferrous Sulfate 324 Mg Tablet. PO 324 mg TID BIANCA Administration Guaifenesin 10 ml 12/15/20 02:45 12/16/20 14:56 Guaifenesin 200 Mg/10 Ml 10 Ml Liquid PO 10 ml Q6H PRN Administration Cough Hydroxyzine HCl 25 mg 12/14/20 23:08 12/21/20 20:36 Hydroxyzine Hcl 25 Mg Tablet PO 25 mg BEDTIME BIANCA Administration Mesalamine 1,600 mg 12/19/20 09:00 12/22/20 08:53 Mesalamine 400 Mg Cap.Drtab. PO 1,600 mg TID BIANCA Administration Methylprednisolone Sodium Succinate 40 mg 12/17/20 18:45 12/21/20 18:02 Methylprednisolone Sod Succ/Pf 40 Mg/Ml Vial IVPUSH 40 mg Q24H BIANCA Administration Naloxone HCl 0.04 mg 12/17/20 15:42 Naloxone Hcl 0.4 Mg/Ml Vial IVPUSH Q5M PRN Respiratory Rate < 8 Omeprazole 40 mg 12/15/20 08:30 12/22/20 08:54 Omeprazole 40 Mg Capsule. PO 40 mg BIDPC BIANCA Administration Ondansetron HCl 4 mg 12/14/20 23:08 Ondansetron Hcl 4 Mg/2 Ml Vial IVPUSH Q8H PRN Nausea and Vomiting Pharmacy Consult 1 each 12/14/20 16:58 Consult Rx Perform Med Rec MISCELLANE ONCE PRN Consult order Propranolol HCl 10 mg 12/14/20 23:08 12/22/20 08:55 Propranolol Hcl 10 Mg Tablet PO Not Given BID [facility] Protocol Sodium Chloride 3 ml 12/15/20 00:00 12/22/20 08:53 0.9 % Sodium Chloride Flush 3 Ml Syringe IVFLUSH 3 ml QSHIFT BIANCA Administration Spironolactone 25 mg 12/15/20 09:00 12/22/20 08:54 Spironolactone 25 Mg Tablet PO 25 mg DAILY BIANCA Administration Protocol Labs CBC & Chem 7: 12/22/20 05:41 12/22/20 05:41 Assessment and Plan (1) Coagulopathy: Status: Acute (2) Hypoalbuminemia: Status: Acute (3) Advanced hepatic cirrhosis: Status: Acute (4) Alcohol abuse: Status: Acute (5) Anemia: Status: Acute Assessment and Plan: 55 male presented with hemoptysis and gingival bleeding Coagulopathy has been receiving Daily FFP and cryo, without caog studies worsen Follow-up Hematology, mixing studies, inhibitor studies Monitor coags daily Alcoholic cirrhosis Continue propranolol, Aldactone Ulcerative colitis with flare Continue mesalamine, Solu-Medrol
[2020-12-22 12:27] LABS: IgA 741 mg/dL (47-310); IgG 2243 mg/dL (600-1640); IgM 103 mg/dL (50-300)
--- NOTE | 2020-12-22 14:06 | P.PNGI_ITS ---
Subjective Subjective Date of Service: 12/22/20 Interval History: 55 yo male whom I have been following since his July visit. He tells me that today he feels well. He has no pains. He has good appetite. He is eating very well. He denies any new meds before admission. He was on a water and fruit diet. His nutrition has been marginal prior to coming in. (He had changed to a Vegetarian diet a while ago. Physical Exam Vital Signs: Vital Signs: Last Vital Signs Temp 97 F 12/22/20 11:09 Pulse 58 12/22/20 11:09 Resp 18 12/22/20 11:09 BP 121/78 12/22/20 11:09 Pulse Ox 100 12/22/20 11:09 Body Mass Index 38.0 Const: General: no acute distress and well developed Nutritional Appearance: obese Orientation/consciousness: patient oriented x3 Resp: Effort & Inspection: normal respiratory effort, no cough, not labored and no respiratory distress Cardio: Rate: regular rate Rhythm: regular rhythm Heart sounds: no murmurs GI: Inspection: Yes normal to inspection and No abdominal wall ecchymosis Palpation (GI): Soft to palpation and no guarding Auscultation: normal bowel sounds Neuro: General: patient oriented x3 Extrem: General: Yes edema Objective Data Labs CBC & Chem 7: 12/22/20 05:41 12/22/20 05:41 Labs: Laboratory Results - last 24 hr 12/16/20 12/16/20 12/16/20 11:25 11:25 11:25 WBC RBC Hgb Hct MCV MCH MCHC RDW Plt Count MPV Immature Gran % (Auto) Neut % (Auto) Lymph % (Auto) [place] % (Auto) Eos % (Auto) Baso % (Auto) Lymph # (Auto) [place] # (Auto) Eos # (Auto) Baso # (Auto) Abs Immat Gran (auto) Absolute Neuts (auto) Absolute Nucleated RBC Nucleated RBC % (auto) PT INR APTT PT Mixing Study 41.9 H PT Normal Plasma Immed 12.8 H PTT Mixing Study 107 H PTT Normal Plasma Immed NOT CORRECTED PTT Normal Plasma Post TNP Mixing Interpretation SEE NOTE D-Dimer Factor II 26 L Sodium Potassium Chloride Carbon Dioxide Anion Gap BUN Creatinine Estim Creat Clear Calc Estimated GFR Fasting Glucose Calcium IgG Total IgA Total IgM VICKY Interpretation Ref Lab Test Result SEE NOTE SEE NOTE Blood Type Antibody Screen 12/20/20 12/21/20 12/21/20 05:54 09:45 09:45 WBC RBC Hgb Hct MCV MCH MCHC RDW Plt Count MPV Immature Gran % (Auto) Neut % (Auto) Lymph % (Auto) [place] % (Auto) Eos % (Auto) Baso % (Auto) Lymph # (Auto) [place] # (Auto) Eos # (Auto) Baso # (Auto) Abs Immat Gran (auto) Absolute Neuts (auto) Absolute Nucleated RBC Nucleated RBC % (auto) PT INR APTT PT Mixing Study SEE NOTE PT Normal Plasma Immed SEE ABOVE PTT Mixing Study SEE ABOVE PTT Normal Plasma Immed SEE ABOVE PTT Normal Plasma Post SEE ABOVE Mixing Interpretation D-Dimer Factor II SEE ABOVE Sodium Potassium Chloride Carbon Dioxide Anion Gap BUN Creatinine Estim Creat Clear Calc Estimated GFR Fasting Glucose Calcium IgG Total 2243 H IgA Total 741 H IgM 103 VICKY Interpretation SEE NOTE Ref Lab Test Result SEE NOTE Blood Type Antibody Screen 12/21/20 12/22/20 12/22/20 11:48 05:41 05:41 WBC 5.2 RBC 2.88 L Hgb 9.1 L Hct 27.0 L MCV 93.8 MCH 31.6 MCHC 33.7 RDW 16.5 H Plt Count 108 L MPV 9.5 Immature Gran % (Auto) 1.5 H Neut % (Auto) 73.4 H Lymph % (Auto) 19.5 L [place] % (Auto) 5.6 Eos % (Auto) 0.0 Baso % (Auto) 0.0 Lymph # (Auto) 1.0 L [place] # (Auto) 0.3 Eos # (Auto) 0.0 Baso # (Auto) 0.0 Abs Immat Gran (auto) 0.08 H Absolute Neuts (auto) 3.8 Absolute Nucleated RBC 0.040 H Nucleated RBC % (auto) 0.8 H PT 22.4 H INR 1.9 H APTT 41.9 H PT Mixing Study PT Normal Plasma Immed PTT Mixing Study PTT Normal Plasma Immed PTT Normal Plasma Post Mixing Interpretation D-Dimer 9200 Factor II Sodium Potassium Chloride Carbon Dioxide Anion Gap BUN Creatinine Estim Creat Clear Calc Estimated GFR Fasting Glucose Calcium IgG Total IgA Total IgM VICKY Interpretation Ref Lab Test Result Blood Type O Positive Antibody Screen NEGATIVE 12/22/20 05:41 WBC RBC Hgb Hct MCV MCH MCHC RDW Plt Count MPV Immature Gran % (Auto) Neut % (Auto) Lymph % (Auto) [place] % (Auto) Eos % (Auto) Baso % (Auto) Lymph # (Auto) [place] # (Auto) Eos # (Auto) Baso # (Auto) Abs Immat Gran (auto) Absolute Neuts (auto) Absolute Nucleated RBC Nucleated RBC % (auto) PT INR APTT PT Mixing Study PT Normal Plasma Immed PTT Mixing Study PTT Normal Plasma Immed PTT Normal Plasma Post Mixing Interpretation D-Dimer Factor II Sodium 137 Potassium 4.1 Chloride 108 Carbon Dioxide 24 Anion Gap 9 L BUN 11 Creatinine 0.80 Estim Creat Clear Calc 128.9 Estimated GFR > 60 Fasting Glucose 142 H D Calcium 7.9 L IgG Total IgA Total IgM VICKY Interpretation Ref Lab Test Result Blood Type Antibody Screen Progress Note: A&P Assessment and plan (1) Coagulopathy: Status: Acute Assessment and Plan: Major focus of this admission. unclear what had triggered decompensation with no real evidence encephalopathy, jaundice, etc. 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 Status: Acute Assessment and Plan: No alcohol since September. Trend had been to improvement prior to this admission. We were waiting for repeat colo as outpatient. This was done as in patient--see report. I feel patient would be best served to be transferred to tertiary center at this time to see what our options are for treatment due to his need for continued IV FFp and cryo. [facility] has a transplant program--Am not sure what his candidate status would be @ this point. Discussed with hospitalist service. (3) Ulcerative colitis: Status: Acute Assessment and Plan: Mucosal changes from rectum to cecum--endoscopically still active no bx done due to coagulopathy. Steroids started/ (4) Anemia: Status: Acute Assessment and Plan: Patient has been anemic all along. Component of blood loss from colitis, Had been on Mesalamine 4.8gm daily. Fall Risk Details Current Medications: Current Medications Generic Name Dose Route Start Last Admin Trade Name Freq PRN Reason Stop Dose Admin Docusate Sodium 100 mg 12/14/20 23:08 Docusate Sodium 100 Mg Capsule PO DAILY PRN Constipation Ferrous Sulfate 324 mg 12/15/20 09:00 12/22/20 08:54 Ferrous Sulfate 324 Mg Tablet. PO 324 mg TID BIANCA Administration Guaifenesin 10 ml 12/15/20 02:45 12/16/20 14:56 Guaifenesin 200 Mg/10 Ml 10 Ml Liquid PO 10 ml Q6H PRN Administration Cough Hydroxyzine HCl 25 mg 12/14/20 23:08 12/21/20 20:36 Hydroxyzine Hcl 25 Mg Tablet PO 25 mg BEDTIME BIANCA Administration Mesalamine 1,600 mg 12/19/20 09:00 12/22/20 08:53 Mesalamine 400 Mg Cap.tab. PO 1,600 mg TID BIANCA Administration Methylprednisolone Sodium Succinate 40 mg 12/17/20 18:45 12/21/20 18:02 Methylprednisolone Sod Succ/Pf 40 Mg/Ml Vial IVPUSH 40 mg Q24H BIANCA Administration Naloxone HCl 0.04 mg 12/17/20 15:42 Naloxone Hcl 0.4 Mg/Ml Vial IVPUSH Q5M PRN Respiratory Rate < 8 Omeprazole 40 mg 12/15/20 08:30 12/22/20 08:54 Omeprazole 40 Mg Capsule. PO 40 mg BIDPC BIANCA Administration Ondansetron HCl 4 mg 12/14/20 23:08 Ondansetron Hcl 4 Mg/2 Ml Vial IVPUSH Q8H PRN Nausea and Vomiting Pharmacy Consult 1 each 12/14/20 16:58 Consult Rx Perform Med Rec MISCELLANE ONCE PRN Consult order Propranolol HCl 10 mg 12/14/20 23:08 12/22/20 08:55 Propranolol Hcl 10 Mg Tablet PO Not Given BID BIANCA Protocol Sodium Chloride 3 ml 12/15/20 00:00 12/22/20 08:53 0.9 % Sodium Chloride Flush 3 Ml Syringe IVFLUSH 3 ml QSHIFT BIANCA Administration Spironolactone 25 mg 12/15/20 09:00 12/22/20 08:54 Spironolactone 25 Mg Tablet PO 25 mg DAILY BIANCA Administration Protocol Time Spent With Patient Time: Total time spent is greater than 50% in coordination of care (as documented) at patient's floor/unit and/or counseling patient: Time with patient: 15 - 24 minutes
[2020-12-22] MEDS: Propranolol HCL 10 MG TABLET PO (21:26)
[2020-12-22] MEDS: hydrOXYzine HCL 25 MG TABLET PO (21:26)
[2020-12-23 03:33] VITALS: BP 107/55; PULSE 53; RESP 18; TEMP 36.6; O2SAT 98
[2020-12-23 06:42] LABS: MANUAL DIFF FLAG NO
[2020-12-23 06:51] LABS: Hematocrit 28.9 % (42-52); Hemoglobin 9.8 g/dl (14.0-18.0); Imm Gran Abs Auto 0.05 X10*3/uL (0.00-0.03); Imm Gran Pct Auto 0.7 % (0.0-0.4); Lymphocytes Percent Auto 14.5 % (20-40); Mean Corpuscular HGB Conc 33.9 g/dl (31.0-36.0); Mean Corpuscular Hemoglobin 31.6 pg (27.0-33.0); Mean Corpuscular Volume 93.2 fL (80-98); Mean Platelet Volume 10.4 fL (9.4-12.4); Monocytes Absolute Auto 0.3 X10*3/uL (0.1-1.2); Monocytes Percent Auto 4.7 % (2-11); Neutrophils Absolute Auto 5.4 X10*3/uL (2.0-8.3); Neutrophils Percent Auto 80.1 % (45-73); Platelet Count 125 X10*3/uL (160-400); Red Cell Distribution Width 16.5 % (11.0-16.0); White Blood Count 6.7 X10*3/uL (4.8-10.8)
[2020-12-23 06:52] LABS: INTERNATIONAL NORM RATIO 1.9 (0.9-1.1); Prothrombin Time 22.3 SEC (10.8-13.0)
[2020-12-23 06:55] LABS: Partial Thromboplastin Time 50.6 SEC (24.1-38.0)
[2020-12-23 07:18] LABS: Anion Gap 9 (12-20); Blood Urea Nitrogen 10 mg/dL (9-16); Calcium 8.2 mg/dL (8.4-10.2); Carbon Dioxide 25 mmol/L (22-29); Chloride 108 mmol/L (96-108); Creatinine Clr Calc Pharmacy 128.9; Estimated Glomerular Filt Rate > 60; Glucose Fasting 175 mg/dL (60-99); Potassium 4.4 mmol/L (3.3-5.1); Sodium 138 mmol/L (135-145)
[2020-12-23 07:25] VITALS: BP 104/59; PULSE 52; RESP 18; TEMP 36.1; O2SAT 99
[2020-12-23] MEDS: Mesalamine 400 MG CAP.DRTAB. 1600 MG PO ×3 (09:19→21:46)
[2020-12-23] MEDS: Propranolol HCL 10 MG TABLET PO ×2 (09:20→21:45)
[2020-12-23] MEDS: 0.9 % Sodium Chloride Flush 3 ML SYRINGE IVFLUSH ×3 (09:20→21:48)
[2020-12-23] MEDS: Omeprazole 40 MG CAPSULE.DR PO ×2 (09:20→16:19)
[2020-12-23] MEDS: Spironolactone 25 MG TABLET PO (09:21)
[2020-12-23] MEDS: Ferrous Sulfate 324 MG TABLET.DR PO ×3 (09:21→21:44)
--- NOTE | 2020-12-23 10:34 | MHC.CLN ---
F/U 100% PO INTAKE DIET RX: REGULAR-APPROPRIATE PT RECEIVING 8OZ ENSURE CLEAR TID TO INCREASE KCALS MONITOR ALBUMIN LEVELS FOLLOWING
[2020-12-23 10:42] LABS: Prot Elec - Albumin 2.5 g/dL (3.8-4.8); Prot Elec - Alpha1 0.2 g/dL (0.2-0.3); Prot Elec - Alpha2 0.4 g/dL (0.5-0.9); Prot Elec - Beta 1 0.3 g/dL (0.4-0.6); Prot Elec - Beta 2 0.6 g/dL (0.2-0.5); Prot Elec - Gamma 2.2 g/dL (0.8-1.7); Prot Elec - Total Protein 6.1 g/dL (6.1-8.1)
[2020-12-23 11:14] VITALS: BP 120/78; PULSE 95; RESP 18; TEMP 36.1; O2SAT 99
--- NOTE | 2020-12-23 11:40 | P.DS_ITS ---
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 (3) Ulcerative colitis: Status: Acute (4) Anemia: Status: Acute DS: Medications Discharge Medications Home Medications: Previous Rx's Medication Instructions Recorded omeprazole 40 mg capsule,delayed 40 mg PO DAILY 30 Days #30 cap 09/29/20 release propranolol 10 mg tablet 10 mg PO BID 30 Days #60 tab 09/29/20 spironolactone 25 mg tablet 25 mg PO DAILY 30 Days #30 tab 09/29/20 mesalamine 1.2 gram tablet,delayed 4.8 g PO DAILY 30 Days #120 tab 10/02/20 release ferrous sulfate 325 mg (65 mg 325 mg PO TID 30 Days #90 tab 10/14/20 iron) tablet hydroxyzine HCl 25 mg tablet 25 mg PO BEDTIME #30 tab 10/21/20 polyethylene glycol 3350 17 238 g PO ONCE 1 Days #238 g 12/10/20 gram/dose oral powder DS: Summary Hospital Course Hospital Course: 55M with PMH of alcoholic liver cirrhosis and ulcerative colitis was admitted for gingival bleeding, hemoptysis, and some BRBPR, his PTT and INR were above cut off range for assay (inr>26, PTT> 200). this was corrected with FFP and cyropercipitate. however, when not given, coagulation studies returned to severely abnormal. patient had mixing studies done which were in favor of factor defeciency as opposed to inhibitor factors. factor VIII was normal at 137.7. II, V, VII were supressed at 44, 35, 38 respectively. platelets remained stable around 100-150. patient did have some blood loss, with carlos hgb 7.6, requiring 1 unit prbc, but has since been stable. he was also started on solumedrol 40mg daily for possible UC flare. after discussion with hematology and gastroenterology decision was made to reach out to tertiary center for higher level of care. case was discussed with [facility] and patient will be transferred for further care. Time Spent with Patient Time attestation: Total time spent providing and/or coordinating discharge services: Discharge coordination time: Greater than 30 minutes Physical Exam Vital Signs: Vital Signs: Last Vital Signs Temp 97 F 12/23/20 11:14 Pulse 95 12/23/20 11:14 Resp 18 12/23/20 11:14 BP 120/78 12/23/20 11:14 Pulse Ox 99 12/23/20 11:14 Body Mass Index 38.0 General: AO X 3, no acute distress, no juandice Resp: CTA bilateral CVS: S1,S2,RRR GI: soft, non tender, distended, not tight Neuro: motor grossly intact Psych: appropriate affect DS: Data Data Completed and Pending Labs on day of discharge: Laboratory Tests 12/14/20 12/14/20 12/14/20 13:34 13:34 13:34 WBC 5.1 RBC 3.03 L Hgb 9.6 L Hct 28.2 L MCV 93.1 MCH 31.7 MCHC 34.0 RDW 16.6 H Plt Count 142 L MPV 8.8 L Immature Gran % (Auto) 0.2 Neut % (Auto) 56.9 Lymph % (Auto) 27.0 [place] % (Auto) 11.2 H Eos % (Auto) 4.1 H Baso % (Auto) 0.6 Lymph # (Auto) 1.4 [place] # (Auto) 0.6 Eos # (Auto) 0.2 Baso # (Auto) 0.0 Abs Immat Gran (auto) 0.01 Absolute Neuts (auto) 2.9 Absolute Nucleated RBC 0.000 Nucleated RBC % (auto) 0.0 PT Cancelled INR Cancelled APTT Cancelled PT Mixing Study PT Normal Plasma Immed PTT Mixing Study PTT Normal Plasma Immed PTT Normal Plasma Post Mixing Interpretation Fibrinogen D-Dimer Factor II Sodium 136 Potassium 3.6 Chloride 107 Carbon Dioxide 25 Anion Gap 8 L BUN 6 L Creatinine 0.84 Estim Creat Clear Calc 120.2 Estimated GFR > 60 Random Glucose 160 H D Fasting Glucose Calcium 7.4 L Magnesium Total Bilirubin 4.3 H Direct Bilirubin 3.0 H GGT AST 98 H ALT 37 Alkaline Phosphatase 355 H Ammonia Lactate Dehydrogenase Total Creatine Kinase C-Reactive Protein Total Protein 6.7 Total Protein (PEP) Albumin 1.7 L Albumin (PEP) Wuezv-6-Ywkbjoxop Afsnd-7-Cuyvawxdc Udsb-3-Kozffxyj Roxq-3-Zkouqwvm Gamma Globulins PEP Interpretation Stool Occult Blood IgG Total IgA Total IgM VICKY Interpretation COVID-19 (ADELA) COVID-19 Clin Com Ref Lab Test Result Blood Type Antibody Screen Crossmatch 12/14/20 12/14/20 12/14/20 14:43 15:28 15:51 WBC RBC Hgb Hct MCV MCH MCHC RDW Plt Count MPV Immature Gran % (Auto) Neut % (Auto) Lymph % (Auto) [place] % (Auto) Eos % (Auto) Baso % (Auto) Lymph # (Auto) [place] # (Auto) Eos # (Auto) Baso # (Auto) Abs Immat Gran (auto) Absolute Neuts (auto) Absolute Nucleated RBC Nucleated RBC % (auto) PT > 320.0 H D INR > 26.0 H* D APTT > 200.0 H* PT Mixing Study PT Normal Plasma Immed PTT Mixing Study PTT Normal Plasma Immed PTT Normal Plasma Post Mixing Interpretation Fibrinogen TNP D-Dimer 77061 Factor II Sodium Potassium Chloride Carbon Dioxide Anion Gap BUN Creatinine Estim Creat Clear Calc Estimated GFR Random Glucose Fasting Glucose Calcium Magnesium Total Bilirubin Direct Bilirubin GGT AST ALT Alkaline Phosphatase Ammonia Lactate Dehydrogenase Total Creatine Kinase C-Reactive Protein Total Protein Total Protein (PEP) Albumin Albumin (PEP) Psnvj-8-Evgpyrsng Purjd-8-Oxydmigzx Qela-9-Pkbkduzi Onwy-8-Jywsykey Gamma Globulins PEP Interpretation Stool Occult Blood POS IgG Total IgA Total IgM VICKY Interpretation COVID-19 (ADELA) COVID-19 Clin Com Ref Lab Test Result Blood Type O Positive Antibody Screen NEGATIVE Crossmatch See Detail 12/14/20 12/14/20 12/15/20 18:17 19:43 07:42 WBC 3.6 L RBC 2.74 L Hgb 8.7 L Hct 25.5 L MCV 93.1 MCH 31.8 MCHC 34.1 RDW 16.3 H Plt Count 124 L MPV 8.8 L Immature Gran % (Auto) 0.3 Neut % (Auto) 47.9 Lymph % (Auto) 33.2 [place] % (Auto) 11.8 H Eos % (Auto) 6.2 H Baso % (Auto) 0.6 Lymph # (Auto) 1.2 [place] # (Auto) 0.4 Eos # (Auto) 0.2 Baso # (Auto) 0.0 Abs Immat Gran (auto) 0.01 Absolute Neuts (auto) 1.7 L Absolute Nucleated RBC 0.000 Nucleated RBC % (auto) 0.0 PT INR APTT PT Mixing Study PT Normal Plasma Immed PTT Mixing Study PTT Normal Plasma Immed PTT Normal Plasma Post Mixing Interpretation Fibrinogen D-Dimer Factor II Sodium Potassium Chloride Carbon Dioxide Anion Gap BUN Creatinine Estim Creat Clear Calc Estimated GFR Random Glucose Fasting Glucose Calcium Magnesium Total Bilirubin Direct Bilirubin GGT AST ALT Alkaline Phosphatase Ammonia 31 Lactate Dehydrogenase Total Creatine Kinase C-Reactive Protein Total Protein Total Protein (PEP) Albumin Albumin (PEP) Nzbkm-9-Dqkjhwcvz Uovur-4-Tffqbrkhj Cxqh-9-Nnwfexny Cabn-7-Dywtwpnm Gamma Globulins PEP Interpretation Stool Occult Blood IgG Total IgA Total IgM VICKY Interpretation COVID-19 (ADELA) Negative COVID-19 Clin Com See Note Ref Lab Test Result Blood Type Antibody Screen Crossmatch 12/15/20 12/15/20 12/16/20 07:42 07:42 05:24 WBC RBC Hgb 8.3 L Hct 24.8 L MCV MCH MCHC RDW Plt Count MPV Immature Gran % (Auto) Neut % (Auto) Lymph % (Auto) [place] % (Auto) Eos % (Auto) Baso % (Auto) Lymph # (Auto) [place] # (Auto) Eos # (Auto) Baso # (Auto) Abs Immat Gran (auto) Absolute Neuts (auto) Absolute Nucleated RBC Nucleated RBC % (auto) PT 32.0 H D INR 2.7 H APTT PT Mixing Study PT Normal Plasma Immed PTT Mixing Study PTT Normal Plasma Immed PTT Normal Plasma Post Mixing Interpretation Fibrinogen D-Dimer Factor II Sodium 137 Potassium 3.9 Chloride 108 Carbon Dioxide 25 Anion Gap 8 L BUN 5 L Creatinine 0.80 Estim Creat Clear Calc 126.2 Estimated GFR > 60 Random Glucose 72 D Fasting Glucose Calcium 7.8 L Magnesium 1.6 Total Bilirubin 4.5 H Direct Bilirubin 2.7 H GGT 224 H AST 70 H ALT 29 Alkaline Phosphatase 275 H D Ammonia Lactate Dehydrogenase 268 Total Creatine Kinase 152 C-Reactive Protein 1.58 H Total Protein 5.7 L Total Protein (PEP) Albumin 1.6 L Albumin (PEP) Zsind-4-Dnnwbwipx Jeshu-7-Ocpbydwrd Lazh-4-Zaurasti Bvvc-8-[place] Gamma Globulins PEP Interpretation Stool Occult Blood IgG Total IgA Total IgM VICKY Interpretation COVID-19 (ADELA) COVID-19 Clin Com Ref Lab Test Result Blood Type Antibody Screen Crossmatch 12/16/20 12/16/20 12/16/20 05:24 05:24 11:25 WBC RBC Hgb Hct MCV MCH MCHC RDW Plt Count MPV Immature Gran % (Auto) Neut % (Auto) Lymph % (Auto) [place] % (Auto) Eos % (Auto) Baso % (Auto) Lymph # (Auto) [place] # (Auto) Eos # (Auto) Baso # (Auto) Abs Immat Gran (auto) Absolute Neuts (auto) Absolute Nucleated RBC Nucleated RBC % (auto) PT > 320.0 H D > 320.0 H INR > 26.0 H* D > 26.0 H* APTT PT Mixing Study PT Normal Plasma Immed PTT Mixing Study PTT Normal Plasma Immed PTT Normal Plasma Post Mixing Interpretation Fibrinogen D-Dimer Factor II Sodium 137 Potassium 3.9 Chloride 108 Carbon Dioxide 24 Anion Gap 9 L BUN 5 L Creatinine 0.90 Estim Creat Clear Calc 114.6 Estimated GFR > 60 Random Glucose 86 Fasting Glucose Calcium 7.5 L Magnesium Total Bilirubin 3.9 H Direct Bilirubin 2.5 H GGT AST 59 H ALT 23 Alkaline Phosphatase 257 H Ammonia Lactate Dehydrogenase Total Creatine Kinase C-Reactive Protein Total Protein 5.8 L Total Protein (PEP) Albumin 2.0 L D Albumin (PEP) Fznov-8-Zouktospy Usjdo-2-Ixeqpdbge Tdnj-5-Kbnvdgwq Ypsq-2-Jioqxttt Gamma Globulins PEP Interpretation Stool Occult Blood IgG Total IgA Total IgM VICKY Interpretation COVID-19 (ADELA) COVID-19 Clin Com Ref Lab Test Result Blood Type Antibody Screen Crossmatch 12/16/20 12/16/20 12/16/20 11:25 11:25 11:25 WBC RBC Hgb Hct MCV MCH MCHC RDW Plt Count MPV Immature Gran % (Auto) Neut % (Auto) Lymph % (Auto) [place] % (Auto) Eos % (Auto) Baso % (Auto) Lymph # (Auto) [place] # (Auto) Eos # (Auto) Baso # (Auto) Abs Immat Gran (auto) Absolute Neuts (auto) Absolute Nucleated RBC Nucleated RBC % (auto) PT INR APTT PT Mixing Study 41.9 H PT Normal Plasma Immed 12.8 H PTT Mixing Study 107 H PTT Normal Plasma Immed NOT CORRECTED PTT Normal Plasma Post TNP Mixing Interpretation SEE NOTE Fibrinogen D-Dimer Factor II 26 L Sodium Potassium Chloride Carbon Dioxide Anion Gap BUN Creatinine Estim Creat Clear Calc Estimated GFR Random Glucose Fasting Glucose Calcium Magnesium Total Bilirubin Direct Bilirubin GGT AST ALT Alkaline Phosphatase Ammonia Lactate Dehydrogenase Total Creatine Kinase C-Reactive Protein Total Protein Total Protein (PEP) Albumin Albumin (PEP) Jnevy-7-Cakmyhblt Rmttp-6-Oagzjkivj Wsey-1-Evbqhuhn Jdpb-7-Xysbhktf Gamma Globulins PEP Interpretation Stool Occult Blood IgG Total IgA Total IgM VICKY Interpretation COVID-19 (ADELA) COVID-19 Clin Com Ref Lab Test Result See Note SEE NOTE Blood Type Antibody Screen Crossmatch 12/16/20 12/16/20 12/16/20 11:25 18:50 20:51 WBC RBC Hgb Hct MCV MCH MCHC RDW Plt Count MPV Immature Gran % (Auto) Neut % (Auto) Lymph % (Auto) [place] % (Auto) Eos % (Auto) Baso % (Auto) Lymph # (Auto) [place] # (Auto) Eos # (Auto) Baso # (Auto) Abs Immat Gran (auto) Absolute Neuts (auto) Absolute Nucleated RBC Nucleated RBC % (auto) PT 26.5 H D INR 2.2 H APTT 71.0 H* D 63.5 H* PT Mixing Study PT Normal Plasma Immed PTT Mixing Study PTT Normal Plasma Immed PTT Normal Plasma Post Mixing Interpretation Fibrinogen D-Dimer Factor II Sodium Potassium Chloride Carbon Dioxide Anion Gap BUN Creatinine Estim Creat Clear Calc Estimated GFR Random Glucose Fasting Glucose Calcium Magnesium Total Bilirubin Direct Bilirubin GGT AST ALT Alkaline Phosphatase Ammonia Lactate Dehydrogenase Total Creatine Kinase C-Reactive Protein Total Protein Total Protein (PEP) Albumin Albumin (PEP) Mayks-5-Ktzfdwgad Mdzmr-1-Wdoncqtsp Lduf-6-Xxvhabjg Hsko-2-Gsvrpigm Gamma Globulins PEP Interpretation Stool Occult Blood IgG Total IgA Total IgM VICKY Interpretation COVID-19 (ADELA) COVID-19 Clin Com Ref Lab Test Result SEE NOTE Blood Type Antibody Screen Crossmatch 12/16/20 12/17/20 12/17/20 20:51 02:27 05:44 WBC 3.9 L RBC 2.41 L Hgb 7.6 L Hct 22.5 L MCV 93.4 MCH 31.5 MCHC 33.8 RDW 15.7 Plt Count 120 L MPV 9.7 Immature Gran % (Auto) 0.3 Neut % (Auto) 46.9 Lymph % (Auto) 34.5 [place] % (Auto) 12.7 H Eos % (Auto) 4.8 H Baso % (Auto) 0.8 Lymph # (Auto) 1.4 [place] # (Auto) 0.5 Eos # (Auto) 0.2 Baso # (Auto) 0.0 Abs Immat Gran (auto) 0.01 Absolute Neuts (auto) 1.9 L Absolute Nucleated RBC 0.000 Nucleated RBC % (auto) 0.0 PT 25.2 H 22.6 H INR 2.1 H 1.9 H APTT 63.1 H* 58.2 H PT Mixing Study PT Normal Plasma Immed PTT Mixing Study PTT Normal Plasma Immed PTT Normal Plasma Post Mixing Interpretation Fibrinogen D-Dimer Factor II Sodium Potassium Chloride Carbon Dioxide Anion Gap BUN Creatinine Estim Creat Clear Calc Estimated GFR Random Glucose Fasting Glucose Calcium Magnesium Total Bilirubin Direct Bilirubin GGT AST ALT Alkaline Phosphatase Ammonia Lactate Dehydrogenase Total Creatine Kinase C-Reactive Protein Total Protein Total Protein (PEP) Albumin Albumin (PEP) Vsmdx-4-Xjtgolsqm Mkswd-1-Zrkuwkwfx Kxzj-4-Qdoctcwl Iqph-1-Bclevduf Gamma Globulins PEP Interpretation Stool Occult Blood IgG Total IgA Total IgM VICKY Interpretation COVID-19 (ADELA) COVID-19 Clin Com Ref Lab Test Result Blood Type Antibody Screen Crossmatch 12/17/20 12/17/20 12/18/20 05:44 19:09 05:36 WBC 3.3 L RBC 2.78 L Hgb 8.9 L Hct 26.6 L MCV 95.7 MCH 32.0 MCHC 33.5 RDW 15.5 Plt Count 128 L MPV 9.6 Immature Gran % (Auto) Neut % (Auto) Lymph % (Auto) [place] % (Auto) Eos % (Auto) Baso % (Auto) Lymph # (Auto) [place] # (Auto) Eos # (Auto) Baso # (Auto) Abs Immat Gran (auto) Absolute Neuts (auto) Absolute Nucleated RBC 0.000 Nucleated RBC % (auto) 0.0 PT 24.4 H INR 2.0 H APTT 60.6 H* PT Mixing Study PT Normal Plasma Immed PTT Mixing Study PTT Normal Plasma Immed PTT Normal Plasma Post Mixing Interpretation Fibrinogen D-Dimer Factor II Sodium Potassium Chloride Carbon Dioxide Anion Gap BUN Creatinine Estim Creat Clear Calc Estimated GFR Random Glucose Fasting Glucose Calcium Magnesium Total Bilirubin Direct Bilirubin GGT AST ALT Alkaline Phosphatase Ammonia Lactate Dehydrogenase Total Creatine Kinase C-Reactive Protein Total Protein Total Protein (PEP) Albumin Albumin (PEP) Kkcfi-9-Bqtpqazvp Hajxx-1-Quxxasdgx Aace-5-Sewnpldl Tmhx-8-Ylsoqckb Gamma Globulins PEP Interpretation Stool Occult Blood IgG Total IgA Total IgM VICKY Interpretation COVID-19 (ADELA) COVID-19 Clin Com Ref Lab Test Result Blood Type O Positive Antibody Screen NEGATIVE Crossmatch 12/18/20 12/18/20 12/18/20 05:36 05:36 12:22 WBC RBC Hgb Hct MCV MCH MCHC RDW Plt Count MPV Immature Gran % (Auto) Neut % (Auto) Lymph % (Auto) [place] % (Auto) Eos % (Auto) Baso % (Auto) Lymph # (Auto) [place] # (Auto) Eos # (Auto) Baso # (Auto) Abs Immat Gran (auto) Absolute Neuts (auto) Absolute Nucleated RBC Nucleated RBC % (auto) PT 20.2 H 20.8 H INR 1.7 H 1.7 H APTT 42.9 H D 48.1 H PT Mixing Study PT Normal Plasma Immed PTT Mixing Study PTT Normal Plasma Immed PTT Normal Plasma Post Mixing Interpretation Fibrinogen 286 D-Dimer 5018 Factor II Sodium 139 Potassium 4.1 Chloride 111 H Carbon Dioxide 21 L Anion Gap 11 L BUN 6 L Creatinine 0.95 Estim Creat Clear Calc 108.5 Estimated GFR > 60 Random Glucose 203 H D Fasting Glucose Calcium 8.1 L D Magnesium Total Bilirubin Direct Bilirubin GGT AST ALT Alkaline Phosphatase Ammonia Lactate Dehydrogenase Total Creatine Kinase C-Reactive Protein Total Protein Total Protein (PEP) Albumin Albumin (PEP) Acsel-2-Sxnnqahms Ssjfi-4-Fylwjsqoz Bxbs-3-Wyhaitzv Mqwt-0-Injsiows Gamma Globulins PEP Interpretation Stool Occult Blood IgG Total IgA Total IgM VICKY Interpretation COVID-19 (ADELA) COVID-19 Clin Com Ref Lab Test Result Blood Type Antibody Screen Crossmatch 12/18/20 12/19/20 12/19/20 18:14 06:01 06:01 WBC RBC Hgb Hct MCV MCH MCHC RDW Plt Count MPV Immature Gran % (Auto) Neut % (Auto) Lymph % (Auto) [place] % (Auto) Eos % (Auto) Baso % (Auto) Lymph # (Auto) [place] # (Auto) Eos # (Auto) Baso # (Auto) Abs Immat Gran (auto) Absolute Neuts (auto) Absolute Nucleated RBC Nucleated RBC % (auto) PT 21.3 H 25.6 H D INR 1.8 H 2.1 H APTT 49.7 H 78.7 H* D PT Mixing Study PT Normal Plasma Immed PTT Mixing Study PTT Normal Plasma Immed PTT Normal Plasma Post Mixing Interpretation Fibrinogen D-Dimer Factor II Sodium 139 Potassium 4.2 Chloride 110 H Carbon Dioxide 23 Anion Gap 10 L BUN 7 L Creatinine 0.87 Estim Creat Clear Calc 118.5 Estimated GFR > 60 Random Glucose 152 H Fasting Glucose Calcium 8.3 L Magnesium Total Bilirubin Direct Bilirubin GGT AST ALT Alkaline Phosphatase Ammonia Lactate Dehydrogenase Total Creatine Kinase C-Reactive Protein Total Protein Total Protein (PEP) Albumin Albumin (PEP) Ewojb-2-Hxxpxbsfu Zntyk-1-Nrvnhowtd Anpx-1-Jmqzkudl Uxgi-7-Njdvfozu Gamma Globulins PEP Interpretation Stool Occult Blood IgG Total IgA Total IgM VICKY Interpretation COVID-19 (ADELA) COVID-19 Clin Com Ref Lab Test Result Blood Type Antibody Screen Crossmatch 12/19/20 12/20/20 12/20/20 06:01 05:54 05:54 WBC RBC Hgb 8.6 L 9.1 L Hct 25.9 L 27.0 L MCV MCH MCHC RDW Plt Count 137 L MPV Immature Gran % (Auto) Neut % (Auto) Lymph % (Auto) [place] % (Auto) Eos % (Auto) Baso % (Auto) Lymph # (Auto) [place] # (Auto) Eos # (Auto) Baso # (Auto) Abs Immat Gran (auto) Absolute Neuts (auto) Absolute Nucleated RBC Nucleated RBC % (auto) PT > 320.0 H D INR > 26.0 H* D APTT > 200.0 H* D PT Mixing Study PT Normal Plasma Immed PTT Mixing Study PTT Normal Plasma Immed PTT Normal Plasma Post Mixing Interpretation Fibrinogen D-Dimer Factor II Sodium Potassium Chloride Carbon Dioxide Anion Gap BUN Creatinine Estim Creat Clear Calc Estimated GFR Random Glucose Fasting Glucose Calcium Magnesium Total Bilirubin Direct Bilirubin GGT AST ALT Alkaline Phosphatase Ammonia Lactate Dehydrogenase Total Creatine Kinase C-Reactive Protein Total Protein Total Protein (PEP) Albumin Albumin (PEP) Vwmqq-7-Stwdpgfuw Bmwdm-9-Efafmajjg Wlpy-5-Ickwfeqq Evof-6-Tfqsxalc Gamma Globulins PEP Interpretation Stool Occult Blood IgG Total IgA Total IgM VICKY Interpretation COVID-19 (ADELA) COVID-19 Clin Com Ref Lab Test Result Blood Type Antibody Screen Crossmatch 12/20/20 12/20/20 12/20/20 05:54 05:54 15:01 WBC RBC Hgb Hct MCV MCH MCHC RDW Plt Count MPV Immature Gran % (Auto) Neut % (Auto) Lymph % (Auto) [place] % (Auto) Eos % (Auto) Baso % (Auto) Lymph # (Auto) [place] # (Auto) Eos # (Auto) Baso # (Auto) Abs Immat Gran (auto) Absolute Neuts (auto) Absolute Nucleated RBC Nucleated RBC % (auto) PT 25.4 H D INR 2.1 H APTT 72.3 H* D PT Mixing Study PT Normal Plasma Immed PTT Mixing Study PTT Normal Plasma Immed PTT Normal Plasma Post Mixing Interpretation Fibrinogen D-Dimer Factor II Sodium Potassium Chloride Carbon Dioxide Anion Gap BUN Creatinine Estim Creat Clear Calc Estimated GFR Random Glucose Fasting Glucose Calcium Magnesium Total Bilirubin 2.9 H Direct Bilirubin 1.9 H GGT AST 53 H ALT 23 Alkaline Phosphatase 210 H Ammonia Lactate Dehydrogenase Total Creatine Kinase C-Reactive Protein Total Protein 6.1 L Total Protein (PEP) 6.1 Albumin 2.3 L Albumin (PEP) 2.5 L Jlxnv-1-Mbzeoqqfb 0.2 Jgzyu-8-Wohdbniiw 0.4 L Upyg-1-Bfbggdlr 0.3 L Wwiw-3-Yfdtexxk 0.6 H Gamma Globulins 2.2 H PEP Interpretation SEE NOTE Stool Occult Blood IgG Total 2243 H IgA Total 741 H IgM 103 VICKY Interpretation SEE NOTE COVID-19 (ADELA) COVID-19 Clin Com Ref Lab Test Result Blood Type Antibody Screen Crossmatch 12/21/20 12/21/20 12/21/20 05:26 05:26 05:26 WBC 8.5 RBC 2.92 L Hgb 9.3 L Hct 27.6 L MCV 94.5 MCH 31.8 MCHC 33.7 RDW 16.0 Plt Count 123 L MPV 9.9 Immature Gran % (Auto) Neut % (Auto) Lymph % (Auto) [place] % (Auto) Eos % (Auto) Baso % (Auto) Lymph # (Auto) [place] # (Auto) Eos # (Auto) Baso # (Auto) Abs Immat Gran (auto) Absolute Neuts (auto) Absolute Nucleated RBC 0.020 H Nucleated RBC % (auto) 0.2 PT 23.0 H INR 1.9 H APTT 48.7 H D PT Mixing Study PT Normal Plasma Immed PTT Mixing Study PTT Normal Plasma Immed PTT Normal Plasma Post Mixing Interpretation Fibrinogen D-Dimer Factor II Sodium 140 Potassium 3.8 Chloride 109 H Carbon Dioxide 27 Anion Gap 8 L BUN 12 D Creatinine 0.79 Estim Creat Clear Calc 130.5 Estimated GFR > 60 Random Glucose 98 D Fasting Glucose Calcium 7.9 L Magnesium Total Bilirubin Direct Bilirubin GGT AST ALT Alkaline Phosphatase Ammonia Lactate Dehydrogenase Total Creatine Kinase C-Reactive Protein Total Protein Total Protein (PEP) Albumin Albumin (PEP) Gwzea-1-Yzprjgart Tjepu-0-Iasrvalqk Cukr-0-Qceruuwx Opld-3-Ebqczmqu Gamma Globulins PEP Interpretation Stool Occult Blood IgG Total IgA Total IgM VICKY Interpretation COVID-19 (ADELA) COVID-19 Clin Com Ref Lab Test Result Blood Type Antibody Screen Crossmatch 12/21/20 12/21/20 12/21/20 09:45 09:45 09:45 WBC RBC Hgb Hct MCV MCH MCHC RDW Plt Count MPV Immature Gran % (Auto) Neut % (Auto) Lymph % (Auto) [place] % (Auto) Eos % (Auto) Baso % (Auto) Lymph # (Auto) [place] # (Auto) Eos # (Auto) Baso # (Auto) Abs Immat Gran (auto) Absolute Neuts (auto) Absolute Nucleated RBC Nucleated RBC % (auto) PT INR APTT PT Mixing Study SEE NOTE PT Normal Plasma Immed SEE ABOVE PTT Mixing Study SEE ABOVE PTT Normal Plasma Immed SEE ABOVE PTT Normal Plasma Post SEE ABOVE Mixing Interpretation See Note Fibrinogen D-Dimer Factor II SEE ABOVE Sodium Potassium Chloride Carbon Dioxide Anion Gap BUN Creatinine Estim Creat Clear Calc Estimated GFR Random Glucose Fasting Glucose Calcium Magnesium Total Bilirubin Direct Bilirubin GGT AST ALT Alkaline Phosphatase Ammonia Lactate Dehydrogenase Total Creatine Kinase C-Reactive Protein Total Protein Total Protein (PEP) Albumin Albumin (PEP) Imqvx-1-Bxmjpirkl Olawj-9-Ipboqfiom Adff-5-Mtlzxakq Bztz-9-Hwtemrqf Gamma Globulins PEP Interpretation Stool Occult Blood IgG Total IgA Total IgM VICKY Interpretation COVID-19 (ADELA) COVID-19 Clin Com Ref Lab Test Result See Note SEE NOTE Blood Type Antibody Screen Crossmatch 12/21/20 12/22/20 12/22/20 11:48 05:41 05:41 WBC 5.2 RBC 2.88 L Hgb 9.1 L Hct 27.0 L MCV 93.8 MCH 31.6 MCHC 33.7 RDW 16.5 H Plt Count 108 L MPV 9.5 Immature Gran % (Auto) 1.5 H Neut % (Auto) 73.4 H Lymph % (Auto) 19.5 L [place] % (Auto) 5.6 Eos % (Auto) 0.0 Baso % (Auto) 0.0 Lymph # (Auto) 1.0 L [place] # (Auto) 0.3 Eos # (Auto) 0.0 Baso # (Auto) 0.0 Abs Immat Gran (auto) 0.08 H Absolute Neuts (auto) 3.8 Absolute Nucleated RBC 0.040 H Nucleated RBC % (auto) 0.8 H PT 22.4 H INR 1.9 H APTT 41.9 H PT Mixing Study PT Normal Plasma Immed PTT Mixing Study PTT Normal Plasma Immed PTT Normal Plasma Post Mixing Interpretation Fibrinogen D-Dimer 9200 Factor II Sodium Potassium Chloride Carbon Dioxide Anion Gap BUN Creatinine Estim Creat Clear Calc Estimated GFR Random Glucose Fasting Glucose Calcium Magnesium Total Bilirubin Direct Bilirubin GGT AST ALT Alkaline Phosphatase Ammonia Lactate Dehydrogenase Total Creatine Kinase C-Reactive Protein Total Protein Total Protein (PEP) Albumin Albumin (PEP) Ymjeu-9-Gpaiydnsr Jrghf-8-Xxhotcsqe Aekk-9-Nfcihdbf Enjo-4-Qshszfts Gamma Globulins PEP Interpretation Stool Occult Blood IgG Total IgA Total IgM VICKY Interpretation COVID-19 (ADELA) COVID-19 Clin Com Ref Lab Test Result Blood Type O Positive Antibody Screen NEGATIVE Crossmatch 12/22/20 12/23/20 12/23/20 05:41 05:58 05:58 WBC 6.7 RBC 3.10 L Hgb 9.8 L Hct 28.9 L MCV 93.2 MCH 31.6 MCHC 33.9 RDW 16.5 H Plt Count 125 L MPV 10.4 Immature Gran % (Auto) 0.7 H Neut % (Auto) 80.1 H Lymph % (Auto) 14.5 L [place] % (Auto) 4.7 Eos % (Auto) 0.0 Baso % (Auto) 0.0 Lymph # (Auto) 1.0 L [place] # (Auto) 0.3 Eos # (Auto) 0.0 Baso # (Auto) 0.0 Abs Immat Gran (auto) 0.05 H Absolute Neuts (auto) 5.4 Absolute Nucleated RBC 0.000 Nucleated RBC % (auto) 0.0 PT 22.3 H INR 1.9 H APTT 50.6 H D PT Mixing Study PT Normal Plasma Immed PTT Mixing Study PTT Normal Plasma Immed PTT Normal Plasma Post Mixing Interpretation Fibrinogen D-Dimer Factor II Sodium 137 Potassium 4.1 Chloride 108 Carbon Dioxide 24 Anion Gap 9 L BUN 11 Creatinine 0.80 Estim Creat Clear Calc 128.9 Estimated GFR > 60 Random Glucose Fasting Glucose 142 H D Calcium 7.9 L Magnesium Total Bilirubin Direct Bilirubin GGT AST ALT Alkaline Phosphatase Ammonia Lactate Dehydrogenase Total Creatine Kinase C-Reactive Protein Total Protein Total Protein (PEP) Albumin Albumin (PEP) Ltzod-1-Sdzatecno Wvlfo-2-Lheinuonb Sjdf-7-Dxhlfhkl Zmlo-0-Lnmoqijj Gamma Globulins PEP Interpretation Stool Occult Blood IgG Total IgA Total IgM VICKY Interpretation COVID-19 (ADELA) COVID-19 Clin Com Ref Lab Test Result Blood Type Antibody Screen Crossmatch 12/23/20 05:58 WBC RBC Hgb Hct MCV MCH MCHC RDW Plt Count MPV Immature Gran % (Auto) Neut % (Auto) Lymph % (Auto) [place] % (Auto) Eos % (Auto) Baso % (Auto) Lymph # (Auto) [place] # (Auto) Eos # (Auto) Baso # (Auto) Abs Immat Gran (auto) Absolute Neuts (auto) Absolute Nucleated RBC Nucleated RBC % (auto) PT INR APTT PT Mixing Study PT Normal Plasma Immed PTT Mixing Study PTT Normal Plasma Immed PTT Normal Plasma Post Mixing Interpretation Fibrinogen D-Dimer Factor II Sodium 138 Potassium 4.4 Chloride 108 Carbon Dioxide 25 Anion Gap 9 L BUN 10 Creatinine 0.80 Estim Creat Clear Calc 128.9 Estimated GFR > 60 Random Glucose Fasting Glucose 175 H Calcium 8.2 L Magnesium Total Bilirubin Direct Bilirubin GGT AST ALT Alkaline Phosphatase Ammonia Lactate Dehydrogenase Total Creatine Kinase C-Reactive Protein Total Protein Total Protein (PEP) Albumin Albumin (PEP) Rsvex-5-Dndeormak Kttch-9-Yfmjplxnc Hrgw-4-Oquwkngd Lzbi-6-Lwvnofga Gamma Globulins PEP Interpretation Stool Occult Blood IgG Total IgA Total IgM VICKY Interpretation COVID-19 (ADELA) COVID-19 Clin Com Ref Lab Test Result Blood Type Antibody Screen Crossmatch Discharge Plan Discharge Patient Disposition: [facility] Referrals: Manpreet Avila, DIRECTOR SHIP-BC [Primary Care Provider] - Discharge Medications: Continued spironolactone 25 mg tablet 25 mg PO DAILY 30 Days Qty: 30 RF: 2 propranolol 10 mg tablet 10 mg PO BID 30 Days Qty: 60 RF: 2 omeprazole 40 mg capsule,delayed release(DR/EC) 40 mg PO DAILY 30 Days Qty: 30 RF: 2 mesalamine [Lialda] 1.2 gram tablet,delayed release (DR/EC) 4.8 g PO DAILY 30 Days Qty: 120 RF: 2 ferrous sulfate 325 mg (65 mg iron) tablet 325 mg PO TID 30 Days Qty: 90 RF: 2 polyethylene glycol 3350 [Miralax] 17 gram/dose powder 238 g PO ONCE 1 Days Qty: 238 RF: 0 hydroxyzine HCl 25 mg tablet 25 mg PO BEDTIME Qty: 30 RF: 1 Discharge Orders: Discharge Order (Routine); Ordered 12/23/20 Ordered By: Darwni Floyd Activity on Discharge: As tolerated Stand Alone Forms: Patient Portal Discharge page Care Plan Goals: manage coagulopathy Health Concerns: coagulopathy Plan of Treatment: transfer to [facility] for further management
--- NOTE | 2020-12-23 11:41 | P.EN_ITS ---
Coagulopathy with elevated PT, APTT, thrombin time and D-dimer. Came in with PT of greater than 320, INR greater than 26, APTT greater than 200, thrombin time 49 seconds. D-dimer was 14,215 NG/mL and fibrinogen level could not be measured. Platelet count of 128 K which was not far from his baseline. Normal renal functions, total bilirubin of 2.9 with mild transaminitis. Normal LDH of 268. Results of mixing studies show correction with normal plasma suggestive of factor deficiency. Factor II 26%, factor V (20%) and factor 7 level low. Factor 9 and 10 are borderline. In aggregate these findings are in keeping with coagulopathy due to liver disease. Factor levels may be slightly higher than expected because of recent FFP transfusion. Prolonged thrombin time with elevat ed D-dimer could represent hypo/dysfibrinogenemia associated with liver disease. Factor 8 activity was normal at 138%, platelets have been stable, therefore unlikely for this to be DIC. 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
--- NOTE | 2020-12-23 11:50 | MHC.CM.PN ---
pt going to [facility] for liver transplant
[2020-12-23 15:42] VITALS: BP 105/53; PULSE 63; RESP 19; TEMP 36.8; O2SAT 100
[2020-12-23 19:40] VITALS: BP 130/84; PULSE 65; RESP 20; TEMP 36.4; O2SAT 100
[2020-12-23] MEDS: hydrOXYzine HCL 25 MG TABLET PO (21:45)
[2020-12-23 23:16] VITALS: BP 130/75; PULSE 65; RESP 20; TEMP 36.6; O2SAT 98
[2020-12-24] VITALS (9 sets, daily range): BP systolic 121–153; BP diastolic 62–93; PULSE 63–88; RESP 17–20; TEMP 36.3–36.7; O2SAT 98–99
[2020-12-24 08:02] LABS: MANUAL DIFF FLAG NO
[2020-12-24 08:08] LABS: Basophils Percent Auto 0.1 % (0-2); Hematocrit 29.8 % (42-52); Hemoglobin 10.2 g/dl (14.0-18.0); Imm Gran Abs Auto 0.06 X10*3/uL (0.00-0.03); Imm Gran Pct Auto 0.6 % (0.0-0.4); Lymphocytes Absolute Auto 1.1 X10*3/uL (1.2-4.9); Lymphocytes Percent Auto 10.7 % (20-40); Mean Corpuscular HGB Conc 34.2 g/dl (31.0-36.0); Mean Corpuscular Hemoglobin 32.4 pg (27.0-33.0); Mean Corpuscular Volume 94.6 fL (80-98); Mean Platelet Volume 10.1 fL (9.4-12.4); Monocytes Percent Auto 9.4 % (2-11); Neutrophils Absolute Auto 8.2 X10*3/uL (2.0-8.3); Neutrophils Percent Auto 79.2 % (45-73); Platelet Count 136 X10*3/uL (160-400); Red Blood Count 3.15 X10*6/uL (4.60-5.80); Red Cell Distribution Width 17.4 % (11.0-16.0); White Blood Count 10.4 X10*3/uL (4.8-10.8)
[2020-12-24 08:32] LABS: Prothrombin Time > 320.0 SEC (10.8-13.0)
[2020-12-24 08:33] LABS: INTERNATIONAL NORM RATIO > 26.0 (0.9-1.1)
[2020-12-24 08:34] LABS: Partial Thromboplastin Time > 200.0 SEC (24.1-38.0)
[2020-12-24 08:44] LABS: Alanine Aminotransferase 49 U/L (0-40); Albumin Level 2.6 g/dL (3.5-5.0); Alkaline Phosphatase 263 U/L (39-117); Anion Gap 10 (12-20); Aspartate Amino Transferase 82 U/L (5-37); Bilirubin Direct 1.9 mg/dL (0.0-0.5); Bilirubin Total 2.7 mg/dL (0.0-1.0); Blood Urea Nitrogen 11 mg/dL (9-16); Calcium 8.4 mg/dL (8.4-10.2); Carbon Dioxide 24 mmol/L (22-29); Chloride 109 mmol/L (96-108); Creatinine Clr Calc Pharmacy 127.3; Estimated Glomerular Filt Rate > 60; Glucose Random 169 mg/dL (60-115); Potassium 4.1 mmol/L (3.3-5.1); Sodium 139 mmol/L (135-145); Total Protein 6.7 g/dL (6.5-8.0)
--- NOTE | 2020-12-24 09:50 | HO.PM.IMPN ---
Subjective Subjective Date of Service: 12/24/20 Interval History: no complaints Cardiovascular Cardiovascular: Reports no additional cardiovascular complaints Gastrointestinal Gastrointestinal: Reports no additional gastrointestinal complaints Physical Exam Vital Signs: Vital Signs: Last Vital Signs Temp 97.5 F 12/24/20 07:45 Pulse 68 12/24/20 07:45 Resp 18 12/24/20 07:45 BP 138/76 12/24/20 07:45 Pulse Ox 99 12/24/20 07:45 Body Mass Index 38.0 General: AO X 3, no acute distress Resp: CTA bilateral CVS: S1,S2,RRR GI: soft, non tender, non distended Neuro: motor grossly intact Psych: appropriate affect Objective Data Current Medications Generic Name Dose Route Start Last Admin Trade Name Freq PRN Reason Stop Dose Admin Docusate Sodium 100 mg 12/14/20 23:08 Docusate Sodium 100 Mg Capsule PO DAILY PRN Constipation Ferrous Sulfate 324 mg 12/15/20 09:00 12/23/20 21:44 Ferrous Sulfate 324 Mg Tablet. PO 324 mg TID BIANCA Administration Guaifenesin 10 ml 12/15/20 02:45 12/16/20 14:56 Guaifenesin 200 Mg/10 Ml 10 Ml Liquid PO 10 ml Q6H PRN Administration Cough Hydroxyzine HCl 25 mg 12/14/20 23:08 12/23/20 21:45 Hydroxyzine Hcl 25 Mg Tablet PO 25 mg BEDTIME BIANCA Administration Mesalamine 1,600 mg 12/19/20 09:00 12/23/20 21:46 Mesalamine 400 Mg Cap.Drtab. PO 1,600 mg TID BIANCA Administration Methylprednisolone Sodium Succinate 40 mg 12/17/20 18:45 12/23/20 17:44 Methylprednisolone Sod Succ/Pf 40 Mg/Ml Vial IVPUSH 40 mg Q24H BIANCA Administration Naloxone HCl 0.04 mg 12/17/20 15:42 Naloxone Hcl 0.4 Mg/Ml Vial IVPUSH Q5M PRN Respiratory Rate < 8 Omeprazole 40 mg 12/15/20 08:30 12/23/20 16:19 Omeprazole 40 Mg Capsule. PO 40 mg BIDPC BIANCA Administration Ondansetron HCl 4 mg 12/14/20 23:08 Ondansetron Hcl 4 Mg/2 Ml Vial IVPUSH Q8H PRN Nausea and Vomiting Pharmacy Consult 1 each 12/14/20 16:58 Consult Rx Perform Med Rec MISCELLANE ONCE PRN Consult order Propranolol HCl 10 mg 12/14/20 23:08 12/23/20 21:45 Propranolol Hcl 10 Mg Tablet PO 10 mg BID BIANCA Administration Protocol Sodium Chloride 3 ml 12/15/20 00:00 12/23/20 21:48 0.9 % Sodium Chloride Flush 3 Ml Syringe IVFLUSH 3 ml QSHIFT BIANCA Administration Spironolactone 25 mg 12/15/20 09:00 12/23/20 09:21 Spironolactone 25 Mg Tablet PO 25 mg DAILY BIANCA Administration Protocol Labs CBC & Chem 7: 12/24/20 07:52 12/24/20 07:52 Assessment and Plan (1) Coagulopathy: Status: Acute (2) 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 Status: Acute (3) Ulcerative colitis: Status: Acute (4) Anemia: Status: Acute Assessment and Plan: 55 male presented with hemoptysis and gingival bleeding Coagulopathy - due to lack of hepatic factors continue Daily FFP, without caog studies worsen Follow-up Hematology, mixing studies, inhibitor studies Monitor coags daily has been accepted to [facility] general, awaiting bed Alcoholic cirrhosis Continue propranolol, Aldactone Ulcerative colitis with flare Continue mesalamine, Solu-Medrol
[2020-12-24] MEDS: Propranolol HCL 10 MG TABLET PO ×2 (10:20→20:28)
[2020-12-24] MEDS: Mesalamine 400 MG CAP.DRTAB. 1600 MG PO ×3 (10:20→20:28)
[2020-12-24] MEDS: Ferrous Sulfate 324 MG TABLET.DR PO ×3 (10:20→20:28)
[2020-12-24] MEDS: Omeprazole 40 MG CAPSULE.DR PO ×2 (10:20→16:07)
[2020-12-24] MEDS: Spironolactone 25 MG TABLET PO (10:21)
[2020-12-24] MEDS: 0.9 % Sodium Chloride Flush 3 ML SYRINGE IVFLUSH ×2 (10:21→16:08)
--- NOTE | 2020-12-24 11:19 | HO.PM.IMPN ---
Subjective Subjective Interval History: no symptoms Cardiovascular Cardiovascular: Reports no additional cardiovascular complaints Gastrointestinal Gastrointestinal: Reports no additional gastrointestinal complaints Physical Exam Vital Signs: Vital Signs: Last Vital Signs Temp 97.6 F 12/24/20 11:08 Pulse 66 12/24/20 11:08 Resp 20 12/24/20 11:08 BP 142/75 H 12/24/20 11:08 Pulse Ox 98 12/24/20 11:08 Body Mass Index 38.0 General: AO X 3, no acute distress Resp: CTA bilateral CVS: S1,S2,RRR GI: soft, non tender, non distended Neuro: motor grossly intact Psych: appropriate affect Objective Data Current Medications Generic Name Dose Route Start Last Admin Trade Name Freq PRN Reason Stop Dose Admin Docusate Sodium 100 mg 12/14/20 23:08 Docusate Sodium 100 Mg Capsule PO DAILY PRN Constipation Ferrous Sulfate 324 mg 12/15/20 09:00 12/24/20 10:20 Ferrous Sulfate 324 Mg Tablet. PO 324 mg TID BIANCA Administration Guaifenesin 10 ml 12/15/20 02:45 12/16/20 14:56 Guaifenesin 200 Mg/10 Ml 10 Ml Liquid PO 10 ml Q6H PRN Administration Cough Hydroxyzine HCl 25 mg 12/14/20 23:08 12/23/20 21:45 Hydroxyzine Hcl 25 Mg Tablet PO 25 mg BEDTIME BIANCA Administration Mesalamine 1,600 mg 12/19/20 09:00 12/24/20 10:20 Mesalamine 400 Mg Cap.Drtab. PO 1,600 mg TID BIANCA Administration Methylprednisolone Sodium Succinate 40 mg 12/17/20 18:45 12/23/20 17:44 Methylprednisolone Sod Succ/Pf 40 Mg/Ml Vial IVPUSH 40 mg Q24H BIANCA Administration Naloxone HCl 0.04 mg 12/17/20 15:42 Naloxone Hcl 0.4 Mg/Ml Vial IVPUSH Q5M PRN Respiratory Rate < 8 Omeprazole 40 mg 12/15/20 08:30 12/24/20 10:20 Omeprazole 40 Mg Capsule.Dr PO 40 mg BIDPC BIANCA Administration Ondansetron HCl 4 mg 12/14/20 23:08 Ondansetron Hcl 4 Mg/2 Ml Vial IVPUSH Q8H PRN Nausea and Vomiting Pharmacy Consult 1 each 12/14/20 16:58 Consult Rx Perform Med Rec MISCELLANE ONCE PRN Consult order Propranolol HCl 10 mg 12/14/20 23:08 12/24/20 10:20 Propranolol Hcl 10 Mg Tablet PO 10 mg BID BIANCA Administration Protocol Sodium Chloride 3 ml 12/15/20 00:00 12/24/20 10:21 0.9 % Sodium Chloride Flush 3 Ml Syringe IVFLUSH 3 ml QSHIFT BIANCA Administration Spironolactone 25 mg 12/15/20 09:00 12/24/20 10:21 Spironolactone 25 Mg Tablet PO 25 mg DAILY BIANCA Administration Protocol Labs CBC & Chem 7: 12/24/20 07:52 12/24/20 07:52 Assessment and Plan (1) Coagulopathy: Status: Acute (2) 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 Status: Acute (3) Ulcerative colitis: Status: Acute (4) Anemia: Status: Acute Assessment and Plan: date of service 12/23/2020 55 male presented with hemoptysis and gingival bleeding Coagulopathy - due to lack of hepatic factors mixing studies, inhibitor studies Monitor coags daily has been accepted to [facility] general, awaiting bed Alcoholic cirrhosis Continue propranolol, Aldactone Ulcerative colitis with flare Continue mesalamine, Solu-Medrol
[2020-12-24 14:22] LABS: Kappa, Serum 673 mg/dL (176-443); Kappa/Lambda Ratio, Serum 2.05 (1.29-2.55); Lambda, Serum 329 mg/dL (91-240)
--- NOTE | 2020-12-24 15:23 | MHC.CM.PN ---
Pt is discharged to transfer to [facility]. Transportation ALS.
[2020-12-24] MEDS: hydrOXYzine HCL 25 MG TABLET PO (20:28)
[2020-12-25 00:38] LABS: Fecal Fat Qualitative Normal (Normal)
[2020-12-26 19:07] LABS: Vitamin K1 10893 pg/mL (130-1500)
== END 2020-12-24 20:39 | disposition short-term general hospital (02) | DRG 661 ==
LOC: HO.ED 16:59 → HO.EDOVER 17:37 → HO.ICU 12-15 11:06 → HO.IMC 12-17 00:07
PROVIDERS: Internal Medicine; Internal Medicine Gastroenterology; Physician Assistant Medical; Admitting Provider Internal Medicine; Emergency Provider Internal Medicine; PCP Nurse Practitioner Family; Visit Provider Internal Medicine
PROC: 0DJD8ZZ Inspection of Lower Intestinal Tract, Via Natural or Artificial Opening Endoscopic (ICD-10-PCS; principal; 2020-12-17 15:10)
DX: D68.9 Coagulation defect, unspecified (principal); D69.6 Thrombocytopenia, unspecified; I85.10 Secondary esophageal varices without bleeding; D62 Acute posthemorrhagic anemia; E88.09 Other disorders of plasma-protein metabolism, not elsewhere classified; K70.30 Alcoholic cirrhosis of liver without ascites; K72.90 Hepatic failure, unspecified without coma; K76.6 Portal hypertension; F10.11 Alcohol abuse, in remission; R04.2 Hemoptysis; K51.90 Ulcerative colitis, unspecified, without complications; Z20.822 Contact with and (suspected) exposure to COVID-19; Z23 Encounter for immunization; Z79.899 Other long term (current) drug therapy
CPT/HCPCS: 36415; 36430; 71046; 80048; 80076; 82140; 82272; 82550; 82705; 82784; 82977; 83615; 83735; 83883; 84155; 84165; 84597; 85014; 85018; 85025; 85027; 85049; 85210; 85379; 85384; 85610; 85611; 85730; 85732; 86140; 86334; 86850; 86900; 86901; 86923; 87635; 90686; 96361; 96365; 99284; 99285; J2370; J2920; J3430; P9012; P9016; P9017; P9047

== ENCOUNTER 2021-01-01 13:25 | Emergency (ER) | payer OTHER, SELFPAY ==
[2021-01-01 13:40] VITALS: BP 144/71; PULSE 86; RESP 16; TEMP 36.8; O2SAT 100; BMI 35.7
--- NOTE | 2021-01-01 16:36 | ED_ITS ---
HPI - Abdominal Pain General Chief Complaint: Abdominal Pain Stated Complaint: gi problems Time Seen by Provider: 01/01/21 15:40 Source: patient Mode of arrival: ambulatory Limitations: no limitations History of Present Illness HPI narrative: 55 y/o male with history of ulcerative colitis, alcoholic liver cirrhosis with ascites, portal HTN & esophageal varices who presents with abdominal bloating and gurgling that started yesterday morning along with 6 episodes of bloody diarrhea. He states the bloating and bleeding have resolved. He had a normal bowel movement this afternoon. His encouraged him to come to the ER for evaluation of his blood counts. He denies dizziness, chest pain, lightheadedness, SOB. No fever, chills, N/V. No sick contacts. He is on lialda for his UC and follows with Dr. Loja. He has an appointment with her on Monday. Upon review of records, patient was recently discharged from here (12/14-12/24) with anemia and coagulopathy requiring PRBC transfusion, FFP transfusion (INR >2 6) and eventual transfer to [facility] for higher level of care. He was treated with solumedrol from a UC flare. He was discharged a few days ago and doing well until yesterday morning. MD elicited complaint: other (abdominal bloating and bloody diarrhea - now resolved) Pertinent past history: other (UC) Onset (ago): day(s) (1) Pain Consistency: intermittent and now resolved Location: diffuse Severity: moderate Quality: cramping and fullness Radiation: none Migration to: no migration Exacerbating factors: nothing Relieving factors: bowel movement Context: history of similar episodes Associated symptoms: diarrhea and hematochezia Related Data Previous Rx's Medication Instructions Recorded omeprazole 40 mg capsule,delayed 40 mg PO DAILY 30 Days #30 cap 09/29/20 release propranolol 10 mg tablet 10 mg PO BID 30 Days #60 tab 09/29/20 spironolactone 25 mg tablet 25 mg PO DAILY 30 Days #30 tab 09/29/20 mesalamine 1.2 gram tablet,delayed 4.8 g PO DAILY 30 Days #120 tab 10/02/20 release ferrous sulfate 325 mg (65 mg 325 mg PO TID 30 Days #90 tab 10/14/20 iron) tablet hydroxyzine HCl 25 mg tablet 25 mg PO BEDTIME #30 tab 10/21/20 polyethylene glycol 3350 17 238 g PO ONCE 1 Days #238 g 12/10/20 gram/dose oral powder Allergies Allergy/AdvReac Type Severity Reaction Status Date / Time No Known Allergies Allergy Verified 12/10/20 09:59 [No Known Allergies*] Review of Systems Review of Systems Constitutional: No Fever, No Chills ENT/Mouth: No sore throat, No Rhinorrhea, No Swallowing Difficulty Cardiovascular: No Chest Pain, No SOB, No Orthopnea, No Edema Respiratory: No Cough, No Sputum, No Wheezing, No dyspnea Gastrointestinal: No Nausea, No Vomiting, + Diarrhea, + abdominal Pain, + Hematochezia, No Melena Genitourinary: No Dysuria, + Urinary Frequency (newly started on diuretic), No Hematuria Musculoskeletal: No joint pain, No Myalgias Skin: No Skin Lesions, No rash Neuro: No Weakness, No Numbness, No Dizziness, No Headache Heme/Lymph: No Bruising, No Lymphadenopathy Endocrine: + Polyuria, No Polydipsia Physical Exam Vital Signs: Vital Signs: Last Vital Signs Temp 98.3 F 01/01/21 13:40 Pulse 86 01/01/21 13:40 Resp 16 01/01/21 13:40 BP 144/71 H 01/01/21 13:40 Pulse Ox 100 01/01/21 13:40 Body Mass Index 35.7 Appearance: Alert. Oriented X3. No acute distress. Eyes: Pupils equal, round and reactive to light. ENT: Pharynx normal. Neck: Normal inspection. Neck supple. CVS: Normal heart rate and rhythm. Pulses normal. Respiratory: No respiratory distress. Breath sounds normal. Abdomen: Soft and nontender. +BS x4 Skin: Skin warm and dry. Normal skin color. Normal skin turgor. No rashes. Extremities: No lower extremity edema. Neuro: Oriented X 3. No motor deficit. No sensory deficit. Course Course Course Narrative: 55 y/o male with hx UC, liver cirrhosis who presents with bloody diarrhea and abdominal bloating x1 day, now resolved. Normal BM earlier today. No symptoms of anemia. Will check labs. He is declining rectal examination at this time. Agreed to heme check stools if he has a BM here. Reevaluation(s) Reevaluation #1: Labs show acute on chronic anemia, H/H is 8.8/26.4 from 10.2/29.8 done last week. INR 1.9. He was previously at a ~07/15 at the end of November and he got 1 unit of PRBC. He does not have any active bleeding. He has been observed in the ER for 5+ hours without a BM. He is stable for discharge with plans to f/u with GI on Monday or return to the ED if bleeding recurrs. Discussed with patient who agrees with plan. MDM - Abdominal Pain Lab Data Result diagrams: 01/01/21 17:19 01/01/21 17:19 Labs: Lab Results 01/01/21 01/01/21 01/01/21 Range/Units 17:19 17:19 18:02 WBC 7.4 (4.8-10.8) X10*3/uL RBC 2.78 L (4.60-5.80) X10*6/uL Hgb 8.8 L (14.0-18.0) g/dl Hct 26.4 L (42-52) % MCV 95.0 (80-98) fL MCH 31.7 (27.0-33.0) pg MCHC 33.3 (31.0-36.0) g/dl RDW 19.1 H (11.0-16.0) % Plt Count 109 L (160-400) X10*3/uL MPV 10.5 (9.4-12.4) fL Immature Gran % (Auto) 0.4 (0.0-0.4) % Neut % (Auto) 63.9 (45-73) % Lymph % (Auto) 19.7 L (20-40) % [place] % (Auto) 14.3 H (2-11) % Eos % (Auto) 1.6 (0-4) % Baso % (Auto) 0.1 (0-2) % Lymph # (Auto) 1.5 (1.2-4.9) X10*3/uL [place] # (Auto) 1.1 (0.1-1.2) X10*3/uL Eos # (Auto) 0.1 (0.0-0.4) X10*3/uL Baso # (Auto) 0.0 (0.0-0.2) X10*3/uL Abs Immat Gran (auto) 0.03 (0.00-0.03) X10*3/uL Absolute Neuts (auto) 4.7 (2.0-8.3) X10*3/uL Absolute Nucleated RBC 0.000 (0.0-0.012) X10*3/uL Nucleated RBC % (auto) 0.0 (0.0-0.2) /100WBC PT (10.8-13.0) SEC INR (0.9-1.1) APTT (24.1-38.0) SEC Sodium 137 (135-145) mmol/L Potassium 4.2 (3.3-5.1) mmol/L Chloride 106 (96-108) mmol/L Carbon Dioxide 23 (22-29) mmol/L Anion Gap 12 (12-20) BUN 12 (9-16) mg/dL Creatinine 0.78 (0.5-1.4) mg/dL Estim Creat Clear Calc 128.1 Estimated GFR > 60 Random Glucose 93 D (60-115) mg/dL Calcium 8.5 (8.4-10.2) mg/dL Magnesium 1.8 (1.6-2.6) mg/dL Total Bilirubin 4.4 H (0.0-1.0) mg/dL Direct Bilirubin 2.2 H (0.0-0.5) mg/dL AST 89 H (5-37) U/L ALT 62 H (0-40) U/L Alkaline Phosphatase 243 H (39-117) U/L Total Protein 7.1 (6.5-8.0) g/dL Albumin 3.6 D (3.5-5.0) g/dL Urine Color DARK YELLOW Urine Appearance CLEAR Urine pH 5.5 (5.0-8.0) Ur Specific [place] >= 1.030 H (1.005-1.025) Urine Protein NEG (NEG-TRACE) MG/DL Urine Glucose (UA) NEG (NEG) MG/DL Urine Ketones NEG (NEG) MG/DL Urine Blood TRACE (NEG) Urine Nitrite NEG (NEG) Ur Leukocyte Esterase NEG (NEG) 01/01/21 Range/Units 18:22 WBC (4.8-10.8) X10*3/uL RBC (4.60-5.80) X10*6/uL Hgb (14.0-18.0) g/dl Hct (42-52) % MCV (80-98) fL MCH (27.0-33.0) pg MCHC (31.0-36.0) g/dl RDW (11.0-16.0) % Plt Count (160-400) X10*3/uL MPV (9.4-12.4) fL Immature Gran % (Auto) (0.0-0.4) % Neut % (Auto) (45-73) % Lymph % (Auto) (20-40) % [place] % (Auto) (2-11) % Eos % (Auto) (0-4) % Baso % (Auto) (0-2) % Lymph # (Auto) (1.2-4.9) X10*3/uL [place] # (Auto) (0.1-1.2) X10*3/uL Eos # (Auto) (0.0-0.4) X10*3/uL Baso # (Auto) (0.0-0.2) X10*3/uL Abs Immat Gran (auto) (0.00-0.03) X10*3/uL Absolute Neuts (auto) (2.0-8.3) X10*3/uL Absolute Nucleated RBC (0.0-0.012) X10*3/uL Nucleated RBC % (auto) (0.0-0.2) /100WBC PT 22.5 H D (10.8-13.0) SEC INR 1.9 H (0.9-1.1) APTT 44.9 H D (24.1-38.0) SEC Sodium (135-145) mmol/L Potassium (3.3-5.1) mmol/L Chloride (96-108) mmol/L Carbon Dioxide (22-29) mmol/L Anion Gap (12-20) BUN (9-16) mg/dL Creatinine (0.5-1.4) mg/dL Estim Creat Clear Calc Estimated GFR Random Glucose (60-115) mg/dL Calcium (8.4-10.2) mg/dL Magnesium (1.6-2.6) mg/dL Total Bilirubin (0.0-1.0) mg/dL Direct Bilirubin (0.0-0.5) mg/dL AST (5-37) U/L ALT (0-40) U/L Alkaline Phosphatase (39-117) U/L Total Protein (6.5-8.0) g/dL Albumin (3.5-5.0) g/dL Urine Color Urine Appearance Urine pH (5.0-8.0) Ur Specific [place] (1.005-1.025) Urine Protein (NEG-TRACE) MG/DL Urine Glucose (UA) (NEG) MG/DL Urine Ketones (NEG) MG/DL Urine Blood (NEG) Urine Nitrite (NEG) Ur Leukocyte Esterase (NEG) Discharge Plan Discharge Clinical Impression: Acute lower gastrointestinal bleeding, Coagulopathy, Acute on chronic anemia Patient Disposition: Home, Self-Care Instructions: Gastrointestinal Bleeding (ED), Ulcerative Colitis (ED), Anemia (ED) Additional Instructions: If you develop recurrent rectal bleeding come back to the ER for further evaluation. Follow up with Dr. Loja as scheduled on Monday. Prescriptions: No Action spironolactone 25 mg tablet 25 mg PO DAILY 30 Days Qty: 30 RF: 2 propranolol 10 mg tablet 10 mg PO BID 30 Days Qty: 60 RF: 2 omeprazole 40 mg capsule,delayed release(DR/EC) 40 mg PO DAILY 30 Days Qty: 30 RF: 2 mesalamine [Lialda] 1.2 gram tablet,delayed release (DR/EC) 4.8 g PO DAILY 30 Days Qty: 120 RF: 2 ferrous sulfate 325 mg (65 mg iron) tablet 325 mg PO TID 30 Days Qty: 90 RF: 2 polyethylene glycol 3350 [Miralax] 17 gram/dose powder 238 g PO ONCE 1 Days Qty: 238 RF: 0 hydroxyzine HCl 25 mg tablet 25 mg PO BEDTIME Qty: 30 RF: 1 Referrals: Clarita Loja MD [Physician] - 3 days [facility] Past Medical History Attestation statement: The following information was validated with the patient. 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 Mother No problems noted. Daughter No problems noted. Son No problems noted. Social History Social History Household Members: Spouse Housing: House Alcohol intake: former Smoking Status: Never smoker Advance Directives: No Advance Directives Information Provided: Yes service: No Current occupational status: unemployed
[2021-01-01 17:24] LABS: MANUAL DIFF FLAG NO
[2021-01-01 17:30] LABS: Basophils Percent Auto 0.1 % (0-2); Eosinophils Absolute Auto 0.1 X10*3/uL (0.0-0.4); Eosinophils Percent Auto 1.6 % (0-4); Hematocrit 26.4 % (42-52); Hemoglobin 8.8 g/dl (14.0-18.0); Imm Gran Abs Auto 0.03 X10*3/uL (0.00-0.03); Imm Gran Pct Auto 0.4 % (0.0-0.4); Lymphocytes Absolute Auto 1.5 X10*3/uL (1.2-4.9); Lymphocytes Percent Auto 19.7 % (20-40); Mean Corpuscular HGB Conc 33.3 g/dl (31.0-36.0); Mean Corpuscular Hemoglobin 31.7 pg (27.0-33.0); Mean Platelet Volume 10.5 fL (9.4-12.4); Monocytes Absolute Auto 1.1 X10*3/uL (0.1-1.2); Monocytes Percent Auto 14.3 % (2-11); Neutrophils Absolute Auto 4.7 X10*3/uL (2.0-8.3); Neutrophils Percent Auto 63.9 % (45-73); Platelet Count 109 X10*3/uL (160-400); Red Blood Count 2.78 X10*6/uL (4.60-5.80); Red Cell Distribution Width 19.1 % (11.0-16.0); White Blood Count 7.4 X10*3/uL (4.8-10.8)
[2021-01-01 17:57] LABS: Alanine Aminotransferase 62 U/L (0-40); Albumin Level 3.6 g/dL (3.5-5.0); Alkaline Phosphatase 243 U/L (39-117); Anion Gap 12 (12-20); Aspartate Amino Transferase 89 U/L (5-37); Bilirubin Direct 2.2 mg/dL (0.0-0.5); Bilirubin Total 4.4 mg/dL (0.0-1.0); Blood Urea Nitrogen 12 mg/dL (9-16); Calcium 8.5 mg/dL (8.4-10.2); Carbon Dioxide 23 mmol/L (22-29); Chloride 106 mmol/L (96-108); Creatinine Clr Calc Pharmacy 128.1; Estimated Glomerular Filt Rate > 60; Glucose Random 93 mg/dL (60-115); Magnesium 1.8 mg/dL (1.6-2.6); Potassium 4.2 mmol/L (3.3-5.1); Sodium 137 mmol/L (135-145); Total Protein 7.1 g/dL (6.5-8.0)
[2021-01-01 18:12] LABS: Glucose Urine UA NEG (NEG); Leukocyte Esterase Urine NEG (NEG); Nitrite Urine NEG (NEG); PH 5.5 (5.0-8.0); Specific Gravity - Urine >= 1.030 (1.005-1.025); Urine Blood TRACE (NEG); Urine Ketones NEG (NEG); Urine Protein NEG (NEG-TRACE)
[2021-01-01 18:21] LABS: Appearance Urine CLEAR; Color Urine DARK YELLOW
[2021-01-01 18:37] LABS: INTERNATIONAL NORM RATIO 1.9 (0.9-1.1); Prothrombin Time 22.5 SEC (10.8-13.0)
[2021-01-01 18:39] LABS: Partial Thromboplastin Time 44.9 SEC (24.1-38.0)
[2021-01-01 18:57] LABS: Hyaline Casts Urine 0-2 /LPF; Mucus Urine 1+ /LPF; Squamous Epithelial Cell Urine TRACE /LPF; Uric Acid Crystals Urine TRACE /LPF; WBC Clumps Urine NOTED; WBC Urine 0-2 /HPF (0-4)
[2021-01-01 18:58] VITALS: BP 136/77; PULSE 74; RESP 16; O2SAT 100
== END 2021-01-01 19:00 | disposition home or self-care (01) ==
PROVIDERS: Physician Assistant; Emergency Provider Emergency Medicine; PCP Nurse Practitioner Family
DX: K92.2 Gastrointestinal hemorrhage, unspecified (principal); D68.9 Coagulation defect, unspecified; K76.6 Portal hypertension; K70.31 Alcoholic cirrhosis of liver with ascites; D63.8 Anemia in other chronic diseases classified elsewhere; F10.10 Alcohol abuse, uncomplicated; R35.8 Other polyuria; K51.90 Ulcerative colitis, unspecified, without complications; Z79.899 Other long term (current) drug therapy
CPT/HCPCS: 36415; 80048; 80076; 81001; 83735; 85025; 85610; 85730; 99283; 99284

== ENCOUNTER → 2021-01-05 15:28 | Outpatient (BNVA) | payer OTHER, SELFPAY | PROVIDERS: PCP Nurse Practitioner Family; Visit Provider Internal Medicine Gastroenterology ==

== ENCOUNTER 2021-01-07 12:37 | Outpatient (REF) | payer OTHER, SELFPAY ==
[2021-01-07 13:01] LABS: MANUAL DIFF FLAG NO
[2021-01-07 13:14] LABS: INTERNATIONAL NORM RATIO 1.6 (0.9-1.1); Prothrombin Time 18.8 SEC (10.8-13.0)
[2021-01-07 13:16] LABS: Partial Thromboplastin Time 41.6 SEC (24.1-38.0)
[2021-01-07 13:24] LABS: Ammonia 140 umol/L (13-55)
[2021-01-07 13:33] LABS: Alanine Aminotransferase 43 U/L (0-40); Albumin Level 3.6 g/dL (3.5-5.0); Alkaline Phosphatase 263 U/L (39-117); Anion Gap 12 (12-20); Aspartate Amino Transferase 51 U/L (5-37); Bilirubin Total 3.6 mg/dL (0.0-1.0); Blood Urea Nitrogen 8 mg/dL (9-16); C Reactive Protein 3.61 mg/dL (< or = 0.50); Calcium 8.9 mg/dL (8.4-10.2); Carbon Dioxide 20 mmol/L (22-29); Chloride 107 mmol/L (96-108); Estimated Glomerular Filt Rate > 60; Gamma Glutamyl Transpeptidase 403 U/L (11-51); Glucose Random 202 mg/dL (60-115); Sodium 135 mmol/L (135-145); Total Protein 7.7 g/dL (6.5-8.0)
[2021-01-07 13:35] LABS: Basophils Percent Auto 0.5 % (0-2); Eosinophils Absolute Auto 0.2 X10*3/uL (0.0-0.4); Eosinophils Percent Auto 5.6 % (0-4); Hematocrit 26.9 % (42-52); Hemoglobin 9.1 g/dl (14.0-18.0); Imm Gran Abs Auto 0.01 X10*3/uL (0.00-0.03); Imm Gran Pct Auto 0.2 % (0.0-0.4); Lymphocytes Absolute Auto 1.2 X10*3/uL (1.2-4.9); Lymphocytes Percent Auto 29.4 % (20-40); Mean Corpuscular HGB Conc 33.8 g/dl (31.0-36.0); Mean Corpuscular Hemoglobin 31.7 pg (27.0-33.0); Mean Corpuscular Volume 93.7 fL (80-98); Mean Platelet Volume 9.4 fL (9.4-12.4); Monocytes Absolute Auto 0.4 X10*3/uL (0.1-1.2); Monocytes Percent Auto 10.2 % (2-11); Neutrophils Absolute Auto 2.2 X10*3/uL (2.0-8.3); Neutrophils Percent Auto 54.1 % (45-73); Platelet Count 181 X10*3/uL (160-400); Red Blood Count 2.87 X10*6/uL (4.60-5.80); Red Cell Distribution Width 17.8 % (11.0-16.0); White Blood Count 4.1 X10*3/uL (4.8-10.8)
[2021-01-11 07:51] LABS: Vitamin B1 18 nmol/L (8-30)
== END 2021-01-07 12:38 | disposition home or self-care (01) ==
LOC: HO.LAB 12:37
PROVIDERS: PCP Nurse Practitioner Family; Visit Provider Internal Medicine Gastroenterology
DX: K76.0 Fatty (change of) liver, not elsewhere classified (principal); K74.60 Unspecified cirrhosis of liver; K51.90 Ulcerative colitis, unspecified, without complications; D64.9 Anemia, unspecified; F10.10 Alcohol abuse, uncomplicated; D68.9 Coagulation defect, unspecified
CPT/HCPCS: 36415; 80053; 82140; 82977; 84425; 85025; 85610; 85730; 86140

== ENCOUNTER → 2021-01-22 09:38 | Outpatient (REF) | payer OTHER, SELFPAY ==
--- NOTE | 2021-01-22 09:41 | CA_ITS ---
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 The visually estimated ejection fraction is between 65-70%. - No obvious valvular pathology seen on this study. Findings Left Ventricle Normal left ventricular cavity size. There is moderately increased left ventricular wall thickness. The left ventricular systolic function is normal. The visually estimated ejection fraction is between 65-70%. There is no evidence of regional wall motion abnormalities. Diastolic function is normal for age. Right Ventricle Normal right ventricular cavity size and systolic function. Atria Both atria are normal in size. Aortic Valve There is a normal trileaflet aortic valve. There is no aortic valve stenosis. There is no aortic valve regurgitation. Mitral Valve The mitral valve appears normal. There is trace mitral valve regurgitation. There is no mitral valve stenosis. Pulmonic Valve The pulmonic valve was not well visualized. Tricuspid Valve The tricuspid valve was not well visualized. There is trace tricuspid valve regurgitation. The pulmonary artery systolic pressure is normal. Great Vessels The aortic annulus, sinuses of valsalva, and asc aorta are normal in size. Venous The inferior vena cava was not well visualized. Pericardium/Pleural There is no evidence of pericardial effusion. Prior Study Comparison No prior study available for comparison. Recommendations, Care & Conclusions No obvious valvular pathology seen on this study. Measurements 2D Linear Measurements IVSd: 1.37 0.6-0.9/0.6-1.0 cm LVIDd: 4.13 3.9-5.3/4.2-5.9 cm LVIDd Index: 1.93 2.4-3.2/2.2-3.1 cm/m2 LVIDs: 2.33 2.0-3.6 cm LVPWd: 1.23 0.7-1.1 cm Ao Root: 3.40 2.1-3.5 cm LA Diam: 3.40 2.7-3.8/3.0-4.0 cm LAIDs Index: 1.59 1.5-2.3 cm/m2 LV Mass: 243.75 67-162/88-224 g LV Mass Index: 113.90 43-95/49-115 g/m2 LVOT Diam: 2.10 3.0+(-)1.3 cm 2D Systolic Function EF 4C: 61.50 >55% EF 2C: 68.70 >55% EF BiP: 65.30 >55% Mitral Valve MV Pk E: 0.80 MV PK A: 1.05 MV Decel Time: 155.00 E/A: 0.80 E'Lateral: 10.90 E'Medial: 6.48 E/E' Med: 12.30 E/E' Lat: 7.30 PHT: 45.00 MVA PHT: 4.89 Decel Brantley: 5.17 Aortic Valve AoV Pk Omar: 1.63 AoV Mn Omar: 1.19 AoV VTI: 0.32 AoV Pk Grad: 11.00 Aov Mn Grad: 6.00 ROSELIA Cont.VTI: 2.47 LVOT LVOT Pk Omar: 1.26 LVOT Mn Omar: 0.90 LVOT VTI: 0.23 LVOT Pk Grad: 6.00 LVOT Mn Grad: 4.00 LVOT Diam: 2.10 LVOT Area: 3.46 Diastolic Function MV Pk E: 0.80 MV Pk A: 1.05 E/A: 0.80 E'Medial: 6.48 E/E' Med: 12.30 E' Laterial: 10.90 E/E' Lat: 7.30 Tricuspid Valve TR Pk Omar: 1.60 TR Pk Grad: 10.00 Great Vessels Aorta Ao Root-2D: 3.40 2.0-3.7 cm Ao Asc: 3.20 2.1-3.4 cm Pulmonary Valve PV Pk Omar: 1.48 Peak PV Grad: 9.00 Updated in Other Vendor System with Status of Final Ten Yancey MD electronically signed on 01/23/2021 1:55:06 PM with status of Final
[2021-01-22 09:56] LABS: MANUAL DIFF FLAG NO
[2021-01-22 10:01] LABS: Basophils Percent Auto 0.6 % (0-2); Eosinophils Percent Auto 0.5 % (0-4); Hematocrit 33.3 % (42-52); Hemoglobin 11.2 g/dl (14.0-18.0); Imm Gran Abs Auto 0.02 X10*3/uL (0.00-0.03); Imm Gran Pct Auto 0.3 % (0.0-0.4); Lymphocytes Absolute Auto 1.8 X10*3/uL (1.2-4.9); Lymphocytes Percent Auto 27.4 % (20-40); Mean Corpuscular HGB Conc 33.6 g/dl (31.0-36.0); Mean Corpuscular Hemoglobin 31.8 pg (27.0-33.0); Mean Corpuscular Volume 94.6 fL (80-98); Mean Platelet Volume 9.2 fL (9.4-12.4); Monocytes Absolute Auto 0.8 X10*3/uL (0.1-1.2); Monocytes Percent Auto 13.1 % (2-11); Neutrophils Absolute Auto 3.7 X10*3/uL (2.0-8.3); Neutrophils Percent Auto 58.1 % (45-73); Platelet Count 272 X10*3/uL (160-400); Red Blood Count 3.52 X10*6/uL (4.60-5.80); Red Cell Distribution Width 16.1 % (11.0-16.0); White Blood Count 6.4 X10*3/uL (4.8-10.8)
[2021-01-22 10:17] LABS: INTERNATIONAL NORM RATIO 1.4 (0.9-1.1); Prothrombin Time 16.8 SEC (10.8-13.0)
[2021-01-22 10:33] LABS: Alanine Aminotransferase 63 U/L (0-40); Albumin Level 3.4 g/dL (3.5-5.0); Alkaline Phosphatase 341 U/L (39-117); Anion Gap 14 (12-20); Aspartate Amino Transferase 78 U/L (5-37); Bilirubin Total 2.6 mg/dL (0.0-1.0); Blood Urea Nitrogen 11 mg/dL (9-16); C Reactive Protein 4.02 mg/dL (< or = 0.50); Carbon Dioxide 20 mmol/L (22-29); Chloride 106 mmol/L (96-108); Estimated Glomerular Filt Rate > 60; Glucose Random 88 mg/dL (60-115); Potassium 3.8 mmol/L (3.3-5.1); Sodium 136 mmol/L (135-145); Total Protein 8.8 g/dL (6.5-8.0)
[2021-01-24 17:37] LABS: TS Negative Control Passed; TS Panel A 0; TS Panel B 0; TS Positive Control Passed; TSpotTB Negative (SeeBelow)
== END ==
LOC: HO.CARD 09:38
PROVIDERS: Internal Medicine Gastroenterology; Visit Provider Nurse Practitioner Family
DX: R01.1 Cardiac murmur, unspecified (principal); K76.0 Fatty (change of) liver, not elsewhere classified; E88.09 Other disorders of plasma-protein metabolism, not elsewhere classified; K74.60 Unspecified cirrhosis of liver; D68.9 Coagulation defect, unspecified; D64.9 Anemia, unspecified; K51.90 Ulcerative colitis, unspecified, without complications
CPT/HCPCS: 36415; 80053; 85025; 85610; 86140; 86481; 93306

== ENCOUNTER 2021-01-25 20:45 | Inpatient (IN) | payer OTHER, SELFPAY ==
--- NOTE | ~2021-01-25 | CT_ITS ---
EXAMINATION: CT HEAD WITHOUT CONTRAST CLINICAL INFORMATION: Altered mental status COMPARISON: None. TECHNIQUE: Contiguous axial imaging was performed from the skull base to vertex without intravenous administration of contrast. Coronal and sagittal reformatted images are performed at the CT scanner. [This CT examination was performed using dose optimization techniques as appropriate, variously including the following: *Automated exposure control *Adjustment of mA and/or kV according to patient size (this includes techniques or standardized protocols for targeted exams where dose is matched to indication/reason for exam; i.e. extremities or head) *Use of iterative reconstruction technique] DLP: 711 mGy-cm. FINDINGS: There is no evidence of acute intracranial hemorrhage or territorial infarction. No abnormal mass-effect or midline shift is seen. Mukherjee to white matter differentiation is well preserved. No extra-axial fluid collections are identified. The ventricles are normal in size. There is no abnormal attenuation within the brain parenchyma. There is no osseous abnormality. The mastoid air cells and visualized portions of the paranasal sinuses are well-aerated. CT/CT head/brain wo con IMPRESSION: No acute intracranial pathology.
--- NOTE | ~2021-01-25 | XR_ITS ---
EXAMINATION: PORTABLE CHEST 1 VIEW CLINICAL INFORMATION: AMS . COMPARISON: 12/14/2020. TECHNIQUE: Portable frontal view of the chest was obtained. FINDINGS: The lungs are well expanded. No focal infiltrate, effusion, edema, or pneumothorax. Cardiac and mediastinal silhouettes are within normal limits for technique. No acute bony abnormality seen. XR/XR chest 1V IMPRESSION: No evidence of acute disease.
[2021-01-25 20:52] VITALS: BP 115/82; BP 131/74; PULSE 100; PULSE 105; RESP 16; TEMP 36.7; O2SAT 99; BMI 33.4
--- NOTE | 2021-01-25 21:03 | ED_ITS ---
HPI - Altered Mental Status General Chief Complaint: Altered Mental Status Stated Complaint: ams Time Seen by Provider: 01/25/21 21:00 Source: patient, EMS and old records reviewed Mode of arrival: EMS Limitations: no limitations History of Present Illness HPI narrative: 55 yo male with UC, alcoholic cirrhosis with anemia and coagulopathy here with 2 days of increased confusion he tells me he doesn't feel well, EMS told RN taking triage the patient was more forgetful and calling his family by the wrong name complaint: altered mental status and confusion Onset (ago): day(s) (2) Timing confirmed by: family member Severity: moderate Consistency of symptoms: waxing and waning Context: history of similar presentation and liver disease Associated symptoms: loss of appetite, malaise and weakness Related Data Home Medications Medication Instructions Recorded Confirmed omeprazole 20 mg PO QAM 01/25/21 01/25/21 spironolactone 50 mg PO DAILY 01/25/21 01/25/21 Previous Rx's Medication Instructions Recorded ferrous sulfate 325 mg (65 mg 325 mg PO TID 30 Days #90 tab 10/14/20 iron) tablet Lialda 1.2 gram tablet,delayed 4.8 g PO DAILY 30 Days #120 tab NS 01/06/21 release calcium carbonate 500 mg calcium 500 mg PO BID 30 Days #60 tab 01/06/21 (1,250 mg) tablet cholecalciferol (vitamin D3) 1,250 50,000 unit PO QWEEK 90 Days #12 01/06/21 mcg (50,000 unit) capsule cap furosemide 20 mg tablet 20 mg PO DAILY 30 Days #30 tab 01/06/21 prednisone 5 mg tablet 10 mg PO BID 30 Days #120 tab 01/08/21 Allergies Allergy/AdvReac Type Severity Reaction Status Date / Time No Known Allergies Allergy Verified 12/10/20 09:59 [No Known Allergies*] Review of Systems Review of Systems: Constitutional : No Weight loss, No Fever, No Chills, pos Fatigue, pos Malaise ENT/Mouth : No sore throat, No Rhinorrhea Eyes: No Eye Pain, No Swelling, No Redness Cardiovascular : No Chest Pain, No SOB, No Dyspnea on Exertion, No Orthopnea, No Edema, No Palpitations Respiratory : No Cough, No Sputum, No Wheezing Gastrointestinal : No Nausea, No Vomiting, No Diarrhea, No Constipation, No abdominal Pain, No Hematochezia, No Melena Genitourinary : No Dysuria, No Urinary Frequency, No Hematuria, Musculoskeletal : No joint pain, No Myalgias, No Joint Swelling Skin : No Skin Lesions, No rash Neuro : pos Weakness, No Numbness, No Dizziness, No Headache Psych : No Anxiety/Panic, No Depression Heme/Lymph: No Bruising, No Bleeding,No Lymphadenopathy Endocrine : No Polyuria, No Polydipsia All other systems reviewed and are negative [facility] Past Medical History Source: old records reviewed Medical History Alcohol abuse Anemia Coagulopathy Fatty liver Hypoalbuminemia 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 Ulcerative colitis Surgical History History of esophagogastroduodenoscopy (EGD) Hx of colonoscopy Family History Family History Sister History of liver cancer Father No problems noted. Mother No problems noted. Daughter No problems noted. Son No problems noted. Social History Social History Household Members: Spouse Housing: House Alcohol intake: former Smoking Status: Never smoker Advance Directives: No Advance Directives Information Provided: Yes service: No Current occupational status: unemployed Physical Exam Vital Signs: Vital Signs: Last Vital Signs Temp 98.1 F 01/25/21 23:40 Pulse 104 H 01/25/21 23:40 Resp 18 01/25/21 23:40 BP 124/91 H 01/25/21 23:40 Pulse Ox 99 01/25/21 23:40 Body Mass Index 33.4 Appearance: Alert. Oriented X2 - thinks it is 1967. No acute distress. Eyes: Pupils equal, round and reactive to light. scleral icterus ENT: Pharynx normal. Neck: Normal inspection. Neck supple. CVS: Normal heart rate and rhythm. Pulses normal. Respiratory: No respiratory distress. Breath sounds normal. Abdomen: Soft and non-tender. Skin: Skin warm and dry. Normal skin color. Normal skin turgor. Extremities: mild 1+ pitting lower extremity edema. No calf ttp Neuro: Oriented X 2 No motor deficit. No sensory deficit. Course Course Course Narrative: to talk to patient about staying in hospital she understands our concerns about his mentation - she told the patient he has to stay, patient aware, not happy but staying lactulose ordered MDM - Altered Mental Status MDM Narrative Medical decision making narrative: 55 yo male with UC, alcoholic cirrhosis, a nemia, coagulopathy who comes to the ED with increasing confusion over the past two days, the patient tells me he just doesn't feel good, he is able to answer questions but at times he trails off thinks it is 1967, denies trauma, will need labs, CT head to r/o ICH, ammonia levels, CXR and UA, likely admit for possible hepatic encephalopathy Lab Data Result diagrams: 01/25/21 22:26 01/25/21 22:26 Labs: Lab Results 01/25/21 01/25/21 01/25/21 Range/Units 22:11 22:25 22:26 WBC 7.2 (4.8-10.8) X10*3/uL RBC 3.54 L (4.60-5.80) X10*6/uL Hgb 11.3 L (14.0-18.0) g/dl Hct 34.0 L (42-52) % MCV 96.0 (80-98) fL MCH 31.9 (27.0-33.0) pg MCHC 33.2 (31.0-36.0) g/dl RDW 15.7 (11.0-16.0) % Plt Count 219 (160-400) X10*3/uL MPV 8.9 L (9.4-12.4) fL Immature Gran % (Auto) 0.6 H (0.0-0.4) % Neut % (Auto) 63.7 (45-73) % Lymph % (Auto) 23.0 (20-40) % [place] % (Auto) 11.7 H (2-11) % Eos % (Auto) 0.7 (0-4) % Baso % (Auto) 0.3 (0-2) % Lymph # (Auto) 1.7 (1.2-4.9) X10*3/uL [place] # (Auto) 0.8 (0.1-1.2) X10*3/uL Eos # (Auto) 0.1 (0.0-0.4) X10*3/uL Baso # (Auto) 0.0 (0.0-0.2) X10*3/uL Abs Immat Gran (auto) 0.04 H (0.00-0.03) X10*3/uL Absolute Neuts (auto) 4.6 (2.0-8.3) X10*3/uL Absolute Nucleated RBC 0.000 (0.0-0.012) X10*3/uL Nucleated RBC % (auto) 0.0 (0.0-0.2) /100WBC PT (10.8-13.0) SEC INR (0.9-1.1) APTT (24.1-38.0) SEC Sodium (135-145) mmol/L Potassium (3.3-5.1) mmol/L Chloride (96-108) mmol/L Carbon Dioxide (22-29) mmol/L Anion Gap (12-20) BUN (9-16) mg/dL Creatinine (0.5-1.4) mg/dL Estim Creat Clear Calc Estimated GFR Random Glucose (60-115) mg/dL Lactic Acid Calcium (8.4-10.2) mg/dL Magnesium (1.6-2.6) mg/dL Total Bilirubin (0.0-1.0) mg/dL Direct Bilirubin (0.0-0.5) mg/dL AST (5-37) U/L ALT (0-40) U/L Alkaline Phosphatase (39-117) U/L Ammonia (13-55) umol/L Troponin I High Sens (<3.5-35.0) ng/L Total Protein (6.5-8.0) g/dL Albumin (3.5-5.0) g/dL Ethyl Alcohol < 10 mg/dL COVID-19 (ADELA) Negative (Negative) COVID-19 Clin Com See Note 01/25/21 01/25/21 01/25/21 Range/Units 22:26 22:27 22:27 WBC (4.8-10.8) X10*3/uL RBC (4.60-5.80) X10*6/uL Hgb (14.0-18.0) g/dl Hct (42-52) % MCV (80-98) fL MCH (27.0-33.0) pg MCHC (31.0-36.0) g/dl RDW (11.0-16.0) % Plt Count (160-400) X10*3/uL MPV (9.4-12.4) fL Immature Gran % (Auto) (0.0-0.4) % Neut % (Auto) (45-73) % Lymph % (Auto) (20-40) % [place] % (Auto) (2-11) % Eos % (Auto) (0-4) % Baso % (Auto) (0-2) % Lymph # (Auto) (1.2-4.9) X10*3/uL [place] # (Auto) (0.1-1.2) X10*3/uL Eos # (Auto) (0.0-0.4) X10*3/uL Baso # (Auto) (0.0-0.2) X10*3/uL Abs Immat Gran (auto) (0.00-0.03) X10*3/uL Absolute Neuts (auto) (2.0-8.3) X10*3/uL Absolute Nucleated RBC (0.0-0.012) X10*3/uL Nucleated RBC % (auto) (0.0-0.2) /100WBC PT 17.0 H (10.8-13.0) SEC INR 1.4 H (0.9-1.1) APTT 38.4 H (24.1-38.0) SEC Sodium 138 (135-145) mmol/L Potassium 4.6 D (3.3-5.1) mmol/L Chloride 109 H (96-108) mmol/L Carbon Dioxide 21 L (22-29) mmol/L Anion Gap 13 (12-20) BUN 17 H D (9-16) mg/dL Creatinine 1.07 (0.5-1.4) mg/dL Estim Creat Clear Calc 90.3 Estimated GFR > 60 Random Glucose 107 (60-115) mg/dL Lactic Acid Calcium 9.1 (8.4-10.2) mg/dL Magnesium 2.0 (1.6-2.6) mg/dL Total Bilirubin 2.1 H (0.0-1.0) mg/dL Direct Bilirubin 1.4 H (0.0-0.5) mg/dL AST 67 H (5-37) U/L ALT 53 H (0-40) U/L Alkaline Phosphatase 280 H (39-117) U/L Ammonia (13-55) umol/L Troponin I High Sens < 3.5 (<3.5-35.0) ng/L Total Protein 8.1 H (6.5-8.0) g/dL Albumin 2.9 L (3.5-5.0) g/dL Ethyl Alcohol mg/dL COVID-19 (ADELA) (Negative) COVID-19 Clin Com 01/25/21 01/25/21 Range/Units 23:23 23:23 WBC (4.8-10.8) X10*3/uL RBC (4.60-5.80) X10*6/uL Hgb (14.0-18.0) g/dl Hct (42-52) % MCV (80-98) fL MCH (27.0-33.0) pg MCHC (31.0-36.0) g/dl RDW (11.0-16.0) % Plt Count (160-400) X10*3/uL MPV (9.4-12.4) fL Immature Gran % (Auto) (0.0-0.4) % Neut % (Auto) (45-73) % Lymph % (Auto) (20-40) % [place] % (Auto) (2-11) % Eos % (Auto) (0-4) % Baso % (Auto) (0-2) % Lymph # (Auto) (1.2-4.9) X10*3/uL [place] # (Auto) (0.1-1.2) X10*3/uL Eos # (Auto) (0.0-0.4) X10*3/uL Baso # (Auto) (0.0-0.2) X10*3/uL Abs Immat Gran (auto) (0.00-0.03) X10*3/uL Absolute Neuts (auto) (2.0-8.3) X10*3/uL Absolute Nucleated RBC (0.0-0.012) X10*3/uL Nucleated RBC % (auto) (0.0-0.2) /100WBC PT (10.8-13.0) SEC INR (0.9-1.1) APTT (24.1-38.0) SEC Sodium (135-145) mmol/L Potassium (3.3-5.1) mmol/L Chloride (96-108) mmol/L Carbon Dioxide (22-29) mmol/L Anion Gap (12-20) BUN (9-16) mg/dL Creatinine (0.5-1.4) mg/dL Estim Creat Clear Calc Estimated GFR Random Glucose (60-115) mg/dL Lactic Acid Cancelled Calcium (8.4-10.2) mg/dL Magnesium (1.6-2.6) mg/dL Total Bilirubin (0.0-1.0) mg/dL Direct Bilirubin (0.0-0.5) mg/dL AST (5-37) U/L ALT (0-40) U/L Alkaline Phosphatase (39-117) U/L Ammonia 147 H (13-55) umol/L Troponin I High Sens (<3.5-35.0) ng/L Total Protein (6.5-8.0) g/dL Albumin (3.5-5.0) g/dL Ethyl Alcohol mg/dL COVID-19 (ADELA) (Negative) COVID-19 Clin Com ECG Data ECG #1: Attestation: I personally reviewed and interpreted this ECG as follows: ECG interpretation date: 01/25/21 ECG interpretation time: 23:42 Interpretation: Rate: 117 Rhythm: sinus tachycardia [place]: left, LVH Normal P waves. Normal YFN. Normal QRS complex. ST T wave : nonspecific, no MARJORIE qTC: normal prior studies: no acute ischemia unchanged Oct 2020 The study has been interpreted contemporaneously by me. . Discharge Plan Discharge Clinical Impression: Acute hepatic encephalopathy Altered mental status Qualifiers: Altered mental status type: disorientation Qualified Code(s): R41.0 - Disorientation, unspecified Patient Disposition: Admitted As Inpatient
--- NOTE | 2021-01-25 21:03 | ECG_ITS ---
Test Reason : AMS Blood Pressure : / mmHG Vent. Rate : 117 BPM Atrial Rate : 117 BPM P-R Int : 198 ms QRS Dur : 090 ms QT Int : 300 ms P-R-T Axes : 010 -10 -11 degrees QTc Int : 418 ms Sinus tachycardia Moderate voltage criteria for LVH, may be normal variant Inferior infarct (cited on or before 03-NOV-2020) Anterior infarct (cited on or before 03-NOV-2020) Abnormal ECG When compared with ECG of 03-NOV-2020 09:07, Vent. rate has increased BY 41 BPM Questionable change in initial forces of Anterior leads Inverted T waves have replaced nonspecific T wave abnormality in Anterior leads Referred By: Adalgisa Brown Electronically Signed By:Jean Carlos Randle
[2021-01-25 22:34] LABS: MANUAL DIFF FLAG NO
[2021-01-25 22:40] LABS: Basophils Percent Auto 0.3 % (0-2); Eosinophils Absolute Auto 0.1 X10*3/uL (0.0-0.4); Eosinophils Percent Auto 0.7 % (0-4); Hemoglobin 11.3 g/dl (14.0-18.0); Imm Gran Abs Auto 0.04 X10*3/uL (0.00-0.03); Imm Gran Pct Auto 0.6 % (0.0-0.4); Lymphocytes Absolute Auto 1.7 X10*3/uL (1.2-4.9); Mean Corpuscular HGB Conc 33.2 g/dl (31.0-36.0); Mean Corpuscular Hemoglobin 31.9 pg (27.0-33.0); Mean Platelet Volume 8.9 fL (9.4-12.4); Monocytes Absolute Auto 0.8 X10*3/uL (0.1-1.2); Monocytes Percent Auto 11.7 % (2-11); Neutrophils Absolute Auto 4.6 X10*3/uL (2.0-8.3); Neutrophils Percent Auto 63.7 % (45-73); Platelet Count 219 X10*3/uL (160-400); Red Blood Count 3.54 X10*6/uL (4.60-5.80); Red Cell Distribution Width 15.7 % (11.0-16.0); White Blood Count 7.2 X10*3/uL (4.8-10.8)
[2021-01-25 22:54] LABS: Ethanol < 10 mg/dL
[2021-01-25 23:00] LABS: Alanine Aminotransferase 53 U/L (0-40); Albumin Level 2.9 g/dL (3.5-5.0); Alkaline Phosphatase 280 U/L (39-117); Anion Gap 13 (12-20); Aspartate Amino Transferase 67 U/L (5-37); Bilirubin Direct 1.4 mg/dL (0.0-0.5); Bilirubin Total 2.1 mg/dL (0.0-1.0); Blood Urea Nitrogen 17 mg/dL (9-16); Calcium 9.1 mg/dL (8.4-10.2); Carbon Dioxide 21 mmol/L (22-29); Chloride 109 mmol/L (96-108); Creatinine Clr Calc Pharmacy 90.3; Estimated Glomerular Filt Rate > 60; Glucose Random 107 mg/dL (60-115); Potassium 4.6 mmol/L (3.3-5.1); Sodium 138 mmol/L (135-145); Total Protein 8.1 g/dL (6.5-8.0)
[2021-01-25 23:01] LABS: INTERNATIONAL NORM RATIO 1.4 (0.9-1.1)
[2021-01-25 23:02] LABS: COVID-19 Test Negative (Negative); IDNOW Serial# 9DD0AD1C
[2021-01-25 23:03] LABS: Partial Thromboplastin Time 38.4 SEC (24.1-38.0); Troponin-I High Sensitivity < 3.5 ng/L (<3.5-35.0)
[2021-01-25 23:40] VITALS: BP 124/91; PULSE 104; RESP 18; TEMP 36.7; O2SAT 99
[2021-01-25 23:45] LABS: Ammonia 147 umol/L (13-55)
[2021-01-25 23:50] LABS: Lactic Acid 1.1 mmol/L (0.5-2.0)
[2021-01-26] MEDS: Lactulose 20 GM/30 ML SOLUTION 30 GM PO ×5 (00:10→20:33)
[2021-01-26 00:43] LABS: Lipase 126 U/L (8-78)
--- NOTE | 2021-01-26 01:09 | PC.NURSE ---
REPORT TO MILAGRO ANGEL
[2021-01-26 01:24] VITALS: BP 131/82; PULSE 118; RESP 16; TEMP 37.2; O2SAT 100
[2021-01-26] MEDS: Omeprazole 20 MG CAPSULE.DR PO ×2 (01:44→08:39)
[2021-01-26] MEDS: Heparin Sodium,Porcine 5,000 UNIT/ML VIAL 5000 UNIT SUBCUT ×3 (01:44→20:32)
--- NOTE | 2021-01-26 05:34 | P.HPHOSP_ITS ---
History of Present Illness Date of Service: 01/25/21 Chief Complaint: Confusion This is a 55-year-old male with past medical history of alcoholic liver cirrhosis, coagulopathy, UC who presents to the hospital after his family brought him in complaining that he is very confused. Patient is very upset that he has to stay in the hospital and is not willing to give me much information. He keeps repeating that he is doing well. He is oriented to self and place although not to time. His refusing to answer any of my questions appropriately and keeps saying that he is doing well and he does not want stay in the hospital. After discussing with family he is agreeable to stay. Patient denies any abdominal pain, no nausea, no vomiting, no diarrhea or constipation. Reports that he takes his lactulose daily once a day and has about 2 bowel movements each day. He denies any chest pain, no shortness the, no cough. On arrival to the ED patient hemodynamically stable with no significant abnormal vitals Labs are significant for hemoglobin of 11.3, WBC count of 7.2, PT of 17, INR of 1.4, BUN of 17, creatinine of 1.07, total bili of 2.1, direct bili of 1.4, AST of 67, ALT of 53, alk-phos of 280, ammonia of 147, albumin of 2.9, lipase of 126. COVID-19 negative, alcohol level negative. Has CT negative for any intracranial pathology and chest x-ray is negative for any acute disease Patient will be admitted for further management of hepatic encephalopathy Review of Systems Review of Systems: Yes all other systems are reviewed and are negative Neurologic: Reports confusion Psychiatric: Psychiatric: Reports confusion [facility] Medical History Alcohol abuse Anemia Coagulopathy Fatty liver Hypoalbuminemia 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 Ulcerative colitis Family History Sister History of liver cancer Father No problems noted. Mother No problems noted. Daughter No problems noted. Son No problems noted. Surgical History History of esophagogastroduodenoscopy (EGD) Hx of colonoscopy Social History Household Members: None Housing: House Do you presently have visiting nurse or other home services: No Alcohol intake: former Smoking Status: Never smoker Use of substances other than those prescribed or required for medical reasons: No Have you been hit, kicked, punched, or otherwise hurt by someone within the past year? If so, by whom?: No Do you feel safe in your current relationship?: Yes Is there a partner from a previous relationship who is making you feel unsafe now?: No Are you made to feel afraid or neglected: No Advance Directives: No Advance Directives Information Provided: Yes Do you have thoughts of harming others: None Do you have a plan to hurt others: No Plan Recently lost weight without trying: No service: No Current occupational status: unemployed Meds Allergies Allergy/AdvReac Type Severity Reaction Status Date / Time No Known Allergies Allergy Verified 12/10/20 09:59 [No Known Allergies*] Active Medications: Current Medications Generic Name Dose Route Start Last Admin Trade Name Freq PRN Reason Stop Dose Admin Acetaminophen 650 mg 01/26/21 01:24 Acetaminophen 325 Mg Tablet PO Q12H PRN Pain, Mild (Pain Scale 1-3) Calcium Carbonate 500 mg 01/26/21 09:00 Calcium Carbonate 500 Mg Tablet PO BID [facility] Docusate Sodium 100 mg 01/26/21 01:24 Docusate Sodium 100 Mg Capsule PO DAILY PRN Constipation Furosemide 20 mg 01/26/21 09:00 Furosemide 20 Mg Tablet PO DAILY [facility] Protocol Heparin Sodium (Porcine) 5,000 unit 01/26/21 01:24 01/26/21 01:44 Heparin Sodium,Porcine 5,000 Unit/Ml Vial SUBCUT 5,000 unit BID BIANCA Administration Lactulose 30 gm 01/25/21 23:56 Lactulose 20 Gm/30 Ml Solution PO QID BIANCA Mesalamine 4,800 mg 01/26/21 09:00 Mesalamine 400 Mg Cap.Drtab. PO DAILY BIANCA Omeprazole 20 mg 01/26/21 01:24 01/26/21 01:44 Omeprazole 20 Mg Capsule.Dr PO 20 mg DAILY BIANCA Administration Ondansetron HCl 4 mg 01/26/21 01:24 Ondansetron Hcl 4 Mg/2 Ml Vial IVPUSH Q8H PRN Nausea and Vomiting Pharmacy Consult 1 each 01/25/21 21:03 Consult Rx Perform Med Rec MISCELLANE ONCE PRN Consult order Prednisone 10 mg 01/26/21 09:00 Prednisone 10 Mg Tablet PO BID [facility] Spironolactone 50 mg 01/26/21 09:00 Spironolactone 25 Mg Tablet PO DAILY [facility] Protocol Home Medications Medication Instructions Recorded Confirmed Last Taken Type omeprazole 20 mg PO QAM 01/25/21 01/25/21 01/24/21 History spironolactone 50 mg PO DAILY 01/25/21 01/25/21 01/24/21 History Physical Exam Vital Signs and Narrative: Vital Signs: Last Vital Signs Temp 98.9 F 01/26/21 01:24 Pulse 118 H 01/26/21 01:24 Resp 16 01/26/21 01:24 BP 131/82 01/26/21 01:24 Pulse Ox 100 01/26/21 01:24 Body Mass Index 33.4 Const: Other: Oriented to self and place but not to time General: no acute distress and confusion Orientation/consciousness: confusion Eyes: General: appearance normal, both eyes and all related structures Resp: Effort & Inspection: normal respiratory effort and able to speak in complete sentences Cardio: Rate: regular rate Rhythm: regular rhythm GI: Palpation (GI): Soft to palpation Auscultation: normal bowel sounds Skin: General skin exam: no rashes or lesions noted Neuro: General: confusion Cognition (Neuro): normal cognition Extrem: General: Yes normal to inspection and Yes no pedal edema Results Labs CBC and Chem 7: 01/25/21 22:26 01/25/21 22:26 Labs: Laboratory Results - last 24 hr 01/25/21 01/25/21 01/25/21 22:11 22:25 22:26 MCV 96.0 MCH 31.9 MCHC 33.2 RDW 15.7 Plt Count 219 MPV 8.9 L Immature Gran % (Auto) 0.6 H Neut % (Auto) 63.7 Lymph % (Auto) 23.0 [place] % (Auto) 11.7 H Eos % (Auto) 0.7 Baso % (Auto) 0.3 Lymph # (Auto) 1.7 [place] # (Auto) 0.8 Eos # (Auto) 0.1 Baso # (Auto) 0.0 Abs Immat Gran (auto) 0.04 H Absolute Neuts (auto) 4.6 Absolute Nucleated RBC 0.000 Nucleated RBC % (auto) 0.0 PT INR APTT Anion Gap Estim Creat Clear Calc Estimated GFR Random Glucose Lactic Acid Calcium Magnesium Total Bilirubin Direct Bilirubin AST ALT Alkaline Phosphatase Ammonia Troponin I High Sens Total Protein Albumin Lipase Ethyl Alcohol < 10 COVID-19 (ADELA) Negative COVID-19 Clin Com See Note 01/25/21 01/25/21 01/25/21 22:26 22:27 22:27 MCV MCH MCHC RDW Plt Count MPV Immature Gran % (Auto) Neut % (Auto) Lymph % (Auto) [place] % (Auto) Eos % (Auto) Baso % (Auto) Lymph # (Auto) [place] # (Auto) Eos # (Auto) Baso # (Auto) Abs Immat Gran (auto) Absolute Neuts (auto) Absolute Nucleated RBC Nucleated RBC % (auto) PT 17.0 H INR 1.4 H APTT 38.4 H Anion Gap 13 Estim Creat Clear Calc 90.3 Estimated GFR > 60 Random Glucose 107 Lactic Acid Calcium 9.1 Magnesium 2.0 Total Bilirubin 2.1 H Direct Bilirubin 1.4 H AST 67 H ALT 53 H Alkaline Phosphatase 280 H Ammonia Troponin I High Sens < 3.5 Total Protein 8.1 H Albumin 2.9 L Lipase 126 H Ethyl Alcohol COVID-19 (ADELA) COVID-19 [employer] Com 01/25/21 01/25/21 01/25/21 23:23 23:23 23:23 MCV MCH MCHC RDW Plt Count MPV Immature Gran % (Auto) Neut % (Auto) Lymph % (Auto) [place] % (Auto) Eos % (Auto) Baso % (Auto) Lymph # (Auto) [place] # (Auto) Eos # (Auto) Baso # (Auto) Abs Immat Gran (auto) Absolute Neuts (auto) Absolute Nucleated RBC Nucleated RBC % (auto) PT INR APTT Anion Gap Estim Creat Clear Calc Estimated GFR Random Glucose Lactic Acid Cancelled 1.1 Calcium Magnesium Total Bilirubin Direct Bilirubin AST ALT Alkaline Phosphatase Ammonia 147 H Troponin I High Sens Total Protein Albumin Lipase Ethyl Alcohol COVID-19 (ADELA) COVID-19 Clin Com Imaging Radiologist's Impressions: Impressions Head CT 01/25/21 21:03 IMPRESSION: No acute intracranial pathology. Chest X-Ray 01/25/21 21:04 IMPRESSION: No evidence of acute disease. Assessment and Plan (1) Acute hepatic encephalopathy: Status: Acute This is a 55-year-old male with history of alcoholic liver cirrhosis who presents to the hospital with confusion. # encephalopathy - most likely secondary to hepatic encephalopathy - has elevated ammonia level of 1 7 - noncompliant with his lactulose Plan: - will start him with lactulose q.i.d. with target of 3-4 BMs daily - continue home medications for his cirrhosis including furosemide and spironolactone # history of ulcerative colitis - no flare at this time - will continue prednisone DVT prophylaxis: Heparin subQ
[2021-01-26 06:15] LABS: MANUAL DIFF FLAG NO
[2021-01-26 06:46] LABS: Basophils Percent Auto 0.5 % (0-2); Eosinophils Absolute Auto 0.1 X10*3/uL (0.0-0.4); Hematocrit 31.7 % (42-52); Hemoglobin 10.6 g/dl (14.0-18.0); Imm Gran Abs Auto 0.02 X10*3/uL (0.00-0.03); Imm Gran Pct Auto 0.3 % (0.0-0.4); Lymphocytes Absolute Auto 1.7 X10*3/uL (1.2-4.9); Lymphocytes Percent Auto 28.5 % (20-40); Mean Corpuscular HGB Conc 33.4 g/dl (31.0-36.0); Mean Corpuscular Hemoglobin 31.7 pg (27.0-33.0); Mean Corpuscular Volume 94.9 fL (80-98); Mean Platelet Volume 9.5 fL (9.4-12.4); Monocytes Absolute Auto 0.7 X10*3/uL (0.1-1.2); Monocytes Percent Auto 11.3 % (2-11); Neutrophils Absolute Auto 3.4 X10*3/uL (2.0-8.3); Neutrophils Percent Auto 58.4 % (45-73); Platelet Count 220 X10*3/uL (160-400); Red Blood Count 3.34 X10*6/uL (4.60-5.80); Red Cell Distribution Width 15.6 % (11.0-16.0); White Blood Count 5.9 X10*3/uL (4.8-10.8)
[2021-01-26 07:02] LABS: Anion Gap 11 (12-20); Blood Urea Nitrogen 18 mg/dL (9-16); Calcium 8.4 mg/dL (8.4-10.2); Carbon Dioxide 21 mmol/L (22-29); Chloride 110 mmol/L (96-108); Creatinine Clr Calc Pharmacy 93.8; Estimated Glomerular Filt Rate > 60; Glucose Random 104 mg/dL (60-115); Potassium 4.3 mmol/L (3.3-5.1); Sodium 138 mmol/L (135-145)
[2021-01-26 07:54] VITALS: BP 128/80; PULSE 86; RESP 16; TEMP 37.2; O2SAT 100
[2021-01-26] MEDS: predniSONE 10 MG TABLET PO ×2 (08:39→20:32)
[2021-01-26] MEDS: Furosemide 20 MG TABLET PO (08:39)
[2021-01-26] MEDS: Spironolactone 25 MG TABLET 50 MG PO (08:39)
[2021-01-26] MEDS: Mesalamine 400 MG CAP.DRTAB. 800 MG PO ×3 (08:39→17:20)
--- NOTE | 2021-01-26 09:46 | MHC.CM.PN ---
EMR REVIEWED, PT ADMITTED W/ENCEPHALOPATHY, CM MET WITH PT THIS MORNING WHO IS ALERT AND ORIENTEDX 3, PT REPORTS HE LIVES W/ AND ONE CHILD, PT REPORTS HE IS INDEPENDENT WITH ALL CARE AT HOME, DENIES USE OF DME AND HOME SERVICES, PT ABLE TO VERIFY PCP AND PHARMACY, PT REPORTS HE IS COMPLIANT WITH MEDS AND REPORTS HE TAKES LACTULOSE DAILY, PT HAS HX OF ETOH ABUSE AND REPORTS HE HAS BEEN SOBER X 5MOS, PT DENIES AA OR OTHER GROUPS AND REPORTS HE STOPPED ON HIS OWN, PT REPORTS HE FEELS STABLE AND DECLINES TO SPEAK TO SOMEONE FROM CARE TEAM WHEN OFFERED. PT DOES REPORT HE DOES NOT HAVE A HCP AND WOULD LIKE ONE, CM TO COMPLETE W/PT PRIOR TO D/C. PCP: ROSELYN RANGEL
[2021-01-26 11:37] VITALS: BP 133/75; PULSE 119; RESP 16; TEMP 36.9; O2SAT 100
[2021-01-26 12:03] VITALS: BMI 33.4
--- NOTE | 2021-01-26 12:58 | HO.PM.IMPN ---
Subjective Subjective Date of Service: 01/26/21 Interval History: seen and examined remains confused thinks its Monday ROS unreliable Physical Exam Vital Signs: Vital Signs: Last Vital Signs Temp 98.5 F 01/26/21 11:37 Pulse 119 H 01/26/21 11:37 Resp 16 01/26/21 11:37 BP 133/75 01/26/21 11:37 Pulse Ox 100 01/26/21 11:37 Body Mass Index 33.4 General - no acute distress, appears comfortable Cardiovascular - regular rate and rhythm, S1-S2 Lungs - normal respiratory effort, clear to auscultation bilaterally, no wheezing Abdomen - soft, nontender, no rebound or guarding Extremities - no edema bilaterally Neuro - awake and alert, no focal deficits, asterixis, disoriented to time Objective Data Current Medications Generic Name Dose Route Start Last Admin Trade Name Freq PRN Reason Stop Dose Admin Acetaminophen 650 mg 01/26/21 01:24 Acetaminophen 325 Mg Tablet PO Q12H PRN Pain, Mild (Pain Scale 1-3) Calcium Carbonate 500 mg 01/26/21 09:00 01/26/21 08:39 Calcium Carbonate 500 Mg Tablet PO 500 mg BID BIANCA Administration Docusate Sodium 100 mg 01/26/21 01:24 Docusate Sodium 100 Mg Capsule PO DAILY PRN Constipation Furosemide 20 mg 01/26/21 09:00 01/26/21 08:39 Furosemide 20 Mg Tablet PO 20 mg DAILY BIANCA Administration Protocol Heparin Sodium (Porcine) 5,000 unit 01/26/21 01:24 01/26/21 08:40 Heparin Sodium,Porcine 5,000 Unit/Ml Vial SUBCUT 5,000 unit BID BIANCA Administration Lactulose 30 gm 01/25/21 23:56 01/26/21 12:21 Lactulose 20 Gm/30 Ml Solution PO 30 gm QID BIANCA Administration Mesalamine 800 mg 01/26/21 08:00 01/26/21 12:21 Mesalamine 400 Mg Cap.Drtab. PO 800 mg TIDWM BIANCA Administration Omeprazole 20 mg 01/26/21 01:24 01/26/21 08:39 Omeprazole 20 Mg Capsule.Dr PO 20 mg DAILY BIANCA Administration Ondansetron HCl 4 mg 01/26/21 01:24 Ondansetron Hcl 4 Mg/2 Ml Vial IVPUSH Q8H PRN Nausea and Vomiting Pharmacy Consult 1 each 01/25/21 21:03 Consult Rx Perform Med Rec MISCELLANE ONCE PRN Consult order Prednisone 10 mg 01/26/21 09:00 01/26/21 08:39 Prednisone 10 Mg Tablet PO 10 mg BID BIANCA Administration Spironolactone 50 mg 01/26/21 09:00 01/26/21 08:39 Spironolactone 25 Mg Tablet PO 50 mg DAILY BIANCA Administration Protocol Labs CBC & Chem 7: 01/26/21 06:02 01/26/21 06:02 Assessment and Plan (1) Acute hepatic encephalopathy: Status: Acute Assessment and Plan: This is a 55-year-old male with history of alcoholic liver cirrhosis who presents to the hospital with confusion. 1. Acute hepatic encephalopathy suspect due to non-compliance with his lactulose -- will need to get collateral from family continue lactulose 30mg TID GI consult continue baseline meds 2. UC not in flare on prednisone, taper schedule unclear -- will get GI input continue mesalamine as well Full Code DVT pptx, subcut. heparin
[2021-01-26 15:26] VITALS: BP 116/65; PULSE 87; RESP 14; TEMP 36.2; O2SAT 100
[2021-01-26 19:27] VITALS: BP 132/87; PULSE 93; RESP 14; TEMP 36.4; O2SAT 100
--- NOTE | 2021-01-26 20:28 | PM.GIPN ---
Subjective Subjective Date of Service: 02/16/21 Interval History: 55 yo male who was readmitted due to confusion with agitation. His Ammonia level was 147. Patient is still not clear why he is here. He says he has been taking his meds as he has been told to. His had told some on admission he was not taking his Lactulose regularly. o Physical Exam Vital Signs: Vital Signs: Last Vital Signs Temp 97.6 F 01/26/21 19:27 Pulse 93 01/26/21 19:27 Resp 14 01/26/21 19:27 BP 132/87 01/26/21 19:27 Pulse Ox 100 01/26/21 19:27 Body Mass Index 33.4 Const: General: cooperative, no acute distress and alert Nutritional Appearance: overweight Orientation/consciousness: patient oriented x3 Limitations: No physical limitations Resp: Effort & Inspection: normal respiratory effort, able to speak in complete sentences, no cough and respiratory effort not decreased Cardio: Rhythm: regular rhythm GI: Palpation (GI): Soft to palpation, no guarding, not rigid and no masses Auscultation: normal bowel sounds Skin: General skin exam: no rashes or lesions noted Neuro: Other: ASTERIXIS IS PRESENT--patient does have a pervasive kind of vague affect. General: patient oriented x3 Objective Data Labs CBC & Chem 7: 01/27/21 05:55 01/27/21 05:55 Labs: Laboratory Results - last 24 hr 01/25/21 01/25/21 01/25/21 22:11 22:25 22:26 WBC 7.2 RBC 3.54 L Hgb 11.3 L Hct 34.0 L MCV 96.0 MCH 31.9 MCHC 33.2 RDW 15.7 Plt Count 219 MPV 8.9 L Immature Gran % (Auto) 0.6 H Neut % (Auto) 63.7 Lymph % (Auto) 23.0 Brown % (Auto) 11.7 H Eos % (Auto) 0.7 Baso % (Auto) 0.3 Lymph # (Auto) 1.7 Brown # (Auto) 0.8 Eos # (Auto) 0.1 Baso # (Auto) 0.0 Abs Immat Gran (auto) 0.04 H Absolute Neuts (auto) 4.6 Absolute Nucleated RBC 0.000 Nucleated RBC % (auto) 0.0 PT INR APTT Sodium Potassium Chloride Carbon Dioxide Anion Gap BUN Creatinine Estim Creat Clear Calc Estimated GFR Random Glucose Lactic Acid Calcium Magnesium Total Bilirubin Direct Bilirubin AST ALT Alkaline Phosphatase Ammonia Troponin I High Sens Total Protein Albumin Lipase Ethyl Alcohol < 10 COVID-19 (ADELA) Negative COVID-19 quitchen Com See Note 01/25/21 01/25/21 01/25/21 22:26 22:27 22:27 WBC RBC Hgb Hct MCV MCH MCHC RDW Plt Count MPV Immature Gran % (Auto) Neut % (Auto) Lymph % (Auto) Brown % (Auto) Eos % (Auto) Baso % (Auto) Lymph # (Auto) Brown # (Auto) Eos # (Auto) Baso # (Auto) Abs Immat Gran (auto) Absolute Neuts (auto) Absolute Nucleated RBC Nucleated RBC % (auto) PT 17.0 H INR 1.4 H APTT 38.4 H Sodium 138 Potassium 4.6 D Chloride 109 H Carbon Dioxide 21 L Anion Gap 13 BUN 17 H D Creatinine 1.07 Estim Creat Clear Calc 90.3 Estimated GFR > 60 Random Glucose 107 Lactic Acid Calcium 9.1 Magnesium 2.0 Total Bilirubin 2.1 H Direct Bilirubin 1.4 H AST 67 H ALT 53 H Alkaline Phosphatase 280 H Ammonia Troponin I High Sens < 3.5 Total Protein 8.1 H Albumin 2.9 L Lipase 126 H Ethyl Alcohol COVID-19 (ADELA) [employer] 01/25/21 01/25/21 01/25/21 23:23 23:23 23:23 WBC RBC Hgb Hct MCV MCH MCHC RDW Plt Count MPV Immature Gran % (Auto) Neut % (Auto) Lymph % (Auto) Brown % (Auto) Eos % (Auto) Baso % (Auto) Lymph # (Auto) Brown # (Auto) Eos # (Auto) Baso # (Auto) Abs Immat Gran (auto) Absolute Neuts (auto) Absolute Nucleated RBC Nucleated RBC % (auto) PT INR APTT Sodium Potassium Chloride Carbon Dioxide Anion Gap BUN Creatinine Estim Creat Clear Calc Estimated GFR Random Glucose Lactic Acid Cancelled 1.1 Calcium Magnesium Total Bilirubin Direct Bilirubin AST ALT Alkaline Phosphatase Ammonia 147 H Troponin I High Sens Total Protein Albumin Lipase Ethyl Alcohol COVID-19 (ADELA) [employer] Com 01/26/21 01/26/21 06:02 06:02 WBC 5.9 RBC 3.34 L Hgb 10.6 L Hct 31.7 L MCV 94.9 MCH 31.7 MCHC 33.4 RDW 15.6 Plt Count 220 MPV 9.5 Immature Gran % (Auto) 0.3 Neut % (Auto) 58.4 Lymph % (Auto) 28.5 Brown % (Auto) 11.3 H Eos % (Auto) 1.0 Baso % (Auto) 0.5 Lymph # (Auto) 1.7 Brown # (Auto) 0.7 Eos # (Auto) 0.1 Baso # (Auto) 0.0 Abs Immat Gran (auto) 0.02 Absolute Neuts (auto) 3.4 Absolute Nucleated RBC 0.000 Nucleated RBC % (auto) 0.0 PT INR APTT Sodium 138 Potassium 4.3 Chloride 110 H Carbon Dioxide 21 L Anion Gap 11 L BUN 18 H Creatinine 1.03 Estim Creat Clear Calc 93.8 Estimated GFR > 60 Random Glucose 104 Lactic Acid Calcium 8.4 D Magnesium Total Bilirubin Direct Bilirubin AST ALT Alkaline Phosphatase Ammonia Troponin I High Sens Total Protein Albumin Lipase Ethyl Alcohol COVID-19 (ADELA) COVID-19 Clin Com Progress Note: A&P Assessment and plan (1) Acute hepatic encephalopathy: Status: Resolved Assessment and Plan: Unclear as to why this patient is encephalopathic @ this time. He may not have been taking his Lactulose. Would start Xifaxin 500mg BID. Review for infection, inflamation, etc. (2) Advanced hepatic cirrhosis: Assessment and Plan: See my outpatient notes: 12/22/20 and and 01/05. Notes from [place] are scanned to the chart. (3) Coagulopathy: Assessment and Plan: [place] [facility] [place] and coagulopathy. The latter has improved ? related to better protein calorie nutrtion and ? steroids. (4) Alcohol abuse: Assessment and Plan: Patient denies continued alcohol intake--He last drank according to he and his in . (5) Ulcerative colitis: Status: Acute (6) Anemia: Assessment and Plan: This has been improving on steroids and mesalamine. Working on adding a biologic. This process was delayed due to his bleeding and coagulapathy. Considering Remicade or Entyvio. These are both infusions and patient can be mangede in Medical short Stay. Fall Risk Details Current Medications: Current Medications Generic Name Dose Route Start Last Admin Trade Name August PRN Reason Stop Dose Admin Acetaminophen 650 mg 01/26/21 01:24 Acetaminophen 325 Mg Tablet PO Q12H PRN Pain, Mild (Pain Scale 1-3) Calcium Carbonate 500 mg 01/26/21 09:00 01/26/21 08:39 Calcium Carbonate 500 Mg Tablet PO 500 mg BID BIANCA Administration Docusate Sodium 100 mg 01/26/21 01:24 Docusate Sodium 100 Mg Capsule PO DAILY PRN Constipation Furosemide 20 mg 01/26/21 09:00 01/26/21 08:39 Furosemide 20 Mg Tablet PO 20 mg DAILY BIANCA Administration Protocol Heparin Sodium (Porcine) 5,000 unit 01/26/21 01:24 01/26/21 08:40 Heparin Sodium,Porcine 5,000 Unit/Ml Vial SUBCUT 5,000 unit BID BIANCA Administration Lactulose 30 gm 01/25/21 23:56 01/26/21 17:20 Lactulose 20 Gm/30 Ml Solution PO 30 gm QID BIANCA Administration Mesalamine 800 mg 01/26/21 08:00 01/26/21 17:20 Mesalamine 400 Mg Cap.Drtab. PO 800 mg TIDWM BIANCA Administration Omeprazole 20 mg 01/26/21 01:24 01/26/21 08:39 Omeprazole 20 Mg Capsule.Dr PO 20 mg DAILY BIANCA Administration Ondansetron HCl 4 mg 01/26/21 01:24 Ondansetron Hcl 4 Mg/2 Ml Vial IVPUSH Q8H PRN Nausea and Vomiting Pharmacy Consult 1 each 01/25/21 21:03 Consult Rx Perform Med Rec MISCELLANE ONCE PRN Consult order Prednisone 10 mg 01/26/21 09:00 01/26/21 08:39 Prednisone 10 Mg Tablet PO 10 mg BID BIANCA Administration Spironolactone 50 mg 01/26/21 09:00 01/26/21 08:39 Spironolactone 25 Mg Tablet PO 50 mg DAILY BIANCA Administration Protocol Time Spent With Patient Time: Total time spent is greater than 50% in coordination of care (as documented) at patient's floor/unit and/or counseling patient: 24 minutes Time with patient: 15 - 24 minutes
[2021-01-26 23:54] VITALS: BP 127/78; PULSE 96; RESP 16; TEMP 36.1; O2SAT 99
[2021-01-27 04:00] VITALS: BP 105/58; PULSE 80; RESP 16; TEMP 36.6; O2SAT 100
[2021-01-27 06:00] VITALS: BMI 34.0
[2021-01-27 06:25] LABS: Hematocrit 30.9 % (42-52); Hemoglobin 10.3 g/dl (14.0-18.0); Mean Corpuscular HGB Conc 33.3 g/dl (31.0-36.0); Mean Corpuscular Hemoglobin 31.9 pg (27.0-33.0); Mean Corpuscular Volume 95.7 fL (80-98); Mean Platelet Volume 8.9 fL (9.4-12.4); Platelet Count 202 X10*3/uL (160-400); Red Blood Count 3.23 X10*6/uL (4.60-5.80); Red Cell Distribution Width 15.5 % (11.0-16.0); White Blood Count 5.6 X10*3/uL (4.8-10.8)
[2021-01-27 06:47] LABS: Anion Gap 10 (12-20); Blood Urea Nitrogen 16 mg/dL (9-16); Calcium 8.3 mg/dL (8.4-10.2); Carbon Dioxide 21 mmol/L (22-29); Chloride 107 mmol/L (96-108); Creatinine Clr Calc Pharmacy 81.9; Estimated Glomerular Filt Rate > 60; Glucose Random 177 mg/dL (60-115); Potassium 4.4 mmol/L (3.3-5.1); Sodium 134 mmol/L (135-145)
[2021-01-27 08:00] VITALS: BP 129/73; PULSE 82; RESP 16; TEMP 36.7; O2SAT 100
[2021-01-27] MEDS: Lactulose 20 GM/30 ML SOLUTION 30 GM PO (08:14)
[2021-01-27] MEDS: Omeprazole 20 MG CAPSULE.DR PO (08:15)
[2021-01-27] MEDS: Mesalamine 400 MG CAP.DRTAB. 800 MG PO (08:15)
[2021-01-27] MEDS: Spironolactone 25 MG TABLET 50 MG PO (08:15)
[2021-01-27] MEDS: predniSONE 10 MG TABLET PO (08:15)
[2021-01-27] MEDS: Heparin Sodium,Porcine 5,000 UNIT/ML VIAL 5000 UNIT SUBCUT (08:15)
[2021-01-27] MEDS: Furosemide 20 MG TABLET PO (08:15)
--- NOTE | 2021-01-27 09:15 | MHC.CM.PN ---
CM MET WITH PT TO COMPLETE HCP, PT HAS DESIGNATED HIS DAUGHTER KIARA DOYLE HIS HEALTH CARE AGENT, NO ALTERNATE HAS BEEN DESIGNATED. PT GIVEN ORIGINAL AND 3 COPIES, COPY UPLOADED TO [employer] AND PLACED IN CHART. KIARA DOYLE: [phone]
[2021-01-27 09:35] LABS: Ammonia 106 umol/L (13-55)
--- NOTE | 2021-01-27 11:00 | MHC.CM.PN ---
PT AMMONIA LEVEL IMPROVED, PT NO LONGER CONFUSED AND WILL DISCHARGE HOME SELF-CARE, TO TRANSPORT.
--- NOTE | 2021-01-27 11:17 | PM.DS ---
DS: Providers Provider Date of Service: 01/27/21 Date of admission: 01/25/21 23:56 Primary care physician: Unknown Physician Consults: 01/26/21 13:05 Consult to Gastroenterology Routine Consulting Provider: Clarita Loja Reason for consultation: cirrhosis, UC DS: Diagnosis Discharge Diagnosis (1) Acute hepatic encephalopathy: Status: Acute (2) Advanced hepatic cirrhosis: Status: Acute (3) Coagulopathy: Status: Acute (4) Alcohol abuse: Status: Acute (5) Ulcerative colitis: Status: Acute (6) Anemia: Status: Acute DS: Medications Discharge Medications Home Medications: Home Medications Medication Instructions Recorded Confirmed omeprazole 20 mg PO QAM 01/25/21 01/25/21 spironolactone 50 mg PO DAILY 01/25/21 01/25/21 Previous Rx's Medication Instructions Recorded ferrous sulfate 325 mg (65 mg 325 mg PO TID 30 Days #90 tab 10/14/20 iron) tablet Lialda 1.2 gram tablet,delayed 4.8 g PO DAILY 30 Days #120 tab NS 01/06/21 release calcium carbonate 500 mg calcium 500 mg PO BID 30 Days #60 tab 01/06/21 (1,250 mg) tablet cholecalciferol (vitamin D3) 1,250 50,000 unit PO QWEEK 90 Days #12 01/06/21 mcg (50,000 unit) capsule cap furosemide 20 mg tablet 20 mg PO DAILY 30 Days #30 tab 01/06/21 prednisone 5 mg tablet 10 mg PO BID 30 Days #120 tab 01/08/21 DS: Summary Hospital Course Hospital Course: This is a 55-year-old male with past medical history of alcoholic liver cirrhosis, coagulopathy, UC who presents to the hospital after his family brought him in complaining that he is very confused. Patient is very upset that he has to stay in the hospital and is not willing to give me much information. He keeps repeating that he is doing well. He is oriented to self and place although not to time. His refusing to answer any of my questions appropriately and keeps saying that he is doing well and he does not want stay in the hospital. After discussing with family he is agreeable to stay. Patient denies any abdominal pain, no nausea, no vomiting, no diarrhea or constipation. Reports that he takes his lactulose daily once a day and has about 2 bowel movements each day. He denies any chest pain, no shortness the, no cough. The patient was admitted to the medical-surgical floor. He was started on lactulose. His repeat ammonia decreased to 106 from 147 on admission. His confusion resolved. Patient denies taking lactulose at home and has never had a prescription for it. The remainder of his lab work was at his baseline and he was continued on his home medications. He is now stable for discharge and will be discharged home with prescription for lactulose. The importance of taking it regularly was discussed with the patient and he understands. Status at Discharge Functional status at discharge: independent ambulation Overall status at discharge: patient is back to baseline Time Spent with Patient Time attestation: Total time spent providing and/or coordinating discharge services: Discharge coordination time: Greater than 30 minutes Physical Exam Vital Signs: Vital Signs: Last Vital Signs Temp 98.0 F 01/27/21 08:00 Pulse 82 01/27/21 08:00 Resp 16 01/27/21 08:00 BP 129/73 01/27/21 08:00 Pulse Ox 100 01/27/21 08:00 Body Mass Index 34.0 Const: Nutritional Appearance: well nourished Orientation/consciousness: patient oriented x3 HENMT: Head: Yes normocephalic and Yes atraumatic Eyes: Sclerae: sclerae normal Chest: Chest palpation & inspection: normal inspection of the chest Resp: Effort & Inspection: normal respiratory effort and no respiratory distress Cardio: Rate: regular rate Rhythm: regular rhythm GI: Palpation (GI): Soft to palpation and nontender Neuro: General: patient oriented x3 Cranial nerves: Yes CN's II-XII intact bilaterally and Yes Bilaterally intact EOM present Extrem: General: Yes normal to inspection DS: Data Data Completed and Pending Completed studies during hospitalization [Text1]: Procedures Inspection of Lower Intestinal Tract, Via Natural or Artificial Opening Endoscopic (12/14/20) Transfusion of Nonautologous Frozen Plasma into Peripheral Vein, Percutaneous Approach (12/14/20) Transfusion of Nonautologous Plasma Cryoprecipitate into Peripheral Vein, Percutaneous Approach (12/14/20) Transfusion of Nonautologous Red Blood Cells into Peripheral Vein, Percutaneous Approach (12/14/20) Labs on day of discharge: Laboratory Results - last 24 hr 01/27/21 01/27/21 01/27/21 05:55 05:55 09:13 WBC 5.6 RBC 3.23 L Hgb 10.3 L Hct 30.9 L MCV 95.7 MCH 31.9 MCHC 33.3 RDW 15.5 Plt Count 202 MPV 8.9 L Absolute Nucleated RBC 0.000 Nucleated RBC % (auto) 0.0 Sodium 134 L Potassium 4.4 Chloride 107 Carbon Dioxide 21 L Anion Gap 10 L BUN 16 Creatinine 1.19 Estim Creat Clear Calc 81.9 Estimated GFR > 60 Random Glucose 177 H D Calcium 8.3 L Ammonia 106 H Preliminary micro results at discharge 01/25/21 23:23 Blood Culture - Preliminary Blood - Venous No growth after 24 hours. 01/25/21 22:27 Blood Culture - Preliminary Blood - Venous No growth after 24 hours. Discharge Plan Discharge Patient Disposition: Home, Self-Care Referrals: Physician,Unknown [Primary Care Provider] - Discharge Medications: New lactulose 20 gram/30 mL solution 30 g PO TID 30 Days Qty: 4050 RF: 0 Continued ferrous sulfate 325 mg (65 mg iron) tablet 325 mg PO TID 30 Days Qty: 90 RF: 2 calcium carbonate [Oyster Shell Calcium] 500 mg calcium (1,250 mg) tablet 500 mg PO BID 30 Days Qty: 60 RF: 0 furosemide 20 mg tablet 20 mg PO DAILY 30 Days Qty: 30 RF: 0 cholecalciferol (vitamin D3) 1,250 mcg (50,000 unit) capsule 50,000 unit PO QWEEK 90 Days Qty: 12 RF: 0 mesalamine [Lialda] 1.2 gram tablet,delayed release (DR/EC) 4.8 g PO DAILY 30 Days Qty: 120 RF: 2 prednisone 5 mg tablet 10 mg PO BID 30 Days Qty: 120 RF: 0 omeprazole 20 mg capsule,delayed release(DR/EC) 20 mg PO QAM RF: 0 spironolactone 50 mg tablet 50 mg PO DAILY RF: 0 Discharge Orders: Discharge Order (Routine); Ordered 01/27/21 Ordered By: Kamilah Daugherty Activity on Discharge: As tolerated Stand Alone Forms: Patient Portal Discharge page Care Plan Goals: stay healthy and out of the hospital Health Concerns: Liver disease Hepatic encephalopathy Plan of Treatment: You were admitted due to confusion, this was related to your underlying liver disease. Start taking lactulose 3 times a day with goal to have 2-3 bowel movements per day Follow up with GI Discharge Date/Time: 01/27/21 12:52
== END 2021-01-27 12:52 | disposition home or self-care (01) | DRG 279 ==
LOC: HO.ED 23:25 → HO.S3 01-26 00:51
PROVIDERS: Physician Assistant Medical; Admitting Provider Internal Medicine; Emergency Provider Emergency Medicine; PCP Nurse Practitioner Family; Visit Provider Family Medicine
DX: K72.00 Acute and subacute hepatic failure without coma (principal); D68.9 Coagulation defect, unspecified; K70.30 Alcoholic cirrhosis of liver without ascites; K51.90 Ulcerative colitis, unspecified, without complications; F10.10 Alcohol abuse, uncomplicated; Z20.822 Contact with and (suspected) exposure to COVID-19; Z91.14 Patient's other noncompliance with medication regimen; Z79.52 Long term (current) use of systemic steroids; Z79.899 Other long term (current) drug therapy
CPT/HCPCS: 36415; 70450; 71045; 80048; 80053; 80076; 80320; 82140; 83605; 83690; 83735; 84484; 85025; 85027; 85610; 85730; 86140; 86481; 87040; 87635; 93005; 93306; 99285

== ENCOUNTER 2021-02-03 07:12 | Outpatient (REF) | payer OTHER, SELFPAY ==
[2021-02-03 07:32] LABS: MANUAL DIFF FLAG NO
[2021-02-03 07:42] LABS: Basophils Percent Auto 0.3 % (0-2); Eosinophils Absolute Auto 0.1 X10*3/uL (0.0-0.4); Hematocrit 32.2 % (42-52); Hemoglobin 10.8 g/dl (14.0-18.0); INTERNATIONAL NORM RATIO 1.5 (0.9-1.1); Imm Gran Abs Auto 0.03 X10*3/uL (0.00-0.03); Imm Gran Pct Auto 0.5 % (0.0-0.4); Lymphocytes Absolute Auto 1.2 X10*3/uL (1.2-4.9); Lymphocytes Percent Auto 19.7 % (20-40); Mean Corpuscular HGB Conc 33.5 g/dl (31.0-36.0); Mean Corpuscular Hemoglobin 32.2 pg (27.0-33.0); Mean Corpuscular Volume 96.1 fL (80-98); Mean Platelet Volume 9.2 fL (9.4-12.4); Monocytes Absolute Auto 0.6 X10*3/uL (0.1-1.2); Monocytes Percent Auto 9.2 % (2-11); Neutrophils Absolute Auto 4.4 X10*3/uL (2.0-8.3); Neutrophils Percent Auto 69.3 % (45-73); Platelet Count 186 X10*3/uL (160-400); Prothrombin Time 18.2 SEC (10.8-13.0); Red Blood Count 3.35 X10*6/uL (4.60-5.80); Red Cell Distribution Width 15.4 % (11.0-16.0); White Blood Count 6.3 X10*3/uL (4.8-10.8)
[2021-02-03 07:49] LABS: Ammonia 88 umol/L (13-55)
[2021-02-03 08:10] LABS: Alanine Aminotransferase 114 U/L (0-40); Albumin Level 2.9 g/dL (3.5-5.0); Alkaline Phosphatase 348 U/L (39-117); Anion Gap 10 (12-20); Aspartate Amino Transferase 132 U/L (5-37); Bilirubin Total 2.6 mg/dL (0.0-1.0); Blood Urea Nitrogen 13 mg/dL (9-16); Calcium 8.6 mg/dL (8.4-10.2); Carbon Dioxide 21 mmol/L (22-29); Chloride 108 mmol/L (96-108); Estimated Glomerular Filt Rate > 60; Glucose Random 111 mg/dL (60-115); Potassium 4.2 mmol/L (3.3-5.1); Sodium 135 mmol/L (135-145); Total Protein 7.8 g/dL (6.5-8.0)
== END 2021-02-03 07:13 | disposition home or self-care (01) ==
LOC: HO.LAB 07:12
PROVIDERS: PCP Nurse Practitioner Family; Visit Provider Internal Medicine Gastroenterology
DX: K74.60 Unspecified cirrhosis of liver (principal)
CPT/HCPCS: 36415; 80053; 82140; 85025; 85610

== ENCOUNTER → 2021-02-04 14:54 | Outpatient (BNVA) | payer OTHER, SELFPAY | PROVIDERS: Visit Provider Internal Medicine Gastroenterology | DX: K76.0 Fatty (change of) liver, not elsewhere classified (principal); F10.10 Alcohol abuse, uncomplicated; K51.90 Ulcerative colitis, unspecified, without complications; E88.09 Other disorders of plasma-protein metabolism, not elsewhere classified; D64.9 Anemia, unspecified ==

== ENCOUNTER 2021-03-09 07:21 | Outpatient (REF) | payer OTHER, SELFPAY ==
--- NOTE | 2021-03-09 09:17 | PM.GIPN ---
Subjective Subjective Date of Service: 03/09/21 Interval History: Patient with known ulcerative colitis,here to start Inflectra due to continued active disease. He is still on Mesalamine orally. Disease has been present for >2 years. He has had no continued bleeding. He has diarrhea that may be complexed by his underlying problem with alcohol induced cirrhosis and hx of Hepatic encephalopathy. He is clear today. He says when he takes his Lactulose he has terrible diarrhea. He is also getting muscle cramping in upper and lower extremities. Physical Exam Vital Signs: Vital Signs: BP: 122/79;P-96;R-18;Temp: 98.1 Const: Orientation/consciousness: patient oriented x3 Resp: Effort & Inspection: normal respiratory effort, able to speak in complete sentences and no respiratory distress Auscultation: clear to auscultation bilaterally Cardio: Rate: regular rate and tachycardic Rhythm: regular rhythm GI: Inspection: Yes obesity Palpation (GI): Soft to palpation, nontender, no guarding and No Ascites present Skin: General skin exam: no rashes or lesions noted Neuro: General: patient oriented x3 Objective Data Labs CBC & Chem 7: 03/09/21 09:27 03/09/21 09:27 Labs: Magnesium: 1.5;Glucose--256; CRP-2.46 { 12/15/20--1.58, 01/22/21--4.02};;AMMONIA-78 STILL ELEVATED. ALBUMIN: 02/03-2.9--NOW 2.3 LIVER PROF: 2.2/262; 85/47. LAST INR-1.3 REMINDER--STOOL CALPROTECTIN- 11/23/20=113 Progress Note: A&P Assessment and plan (1) Ulcerative colitis: Status: Acute Assessment and Plan: There has been difficulty managing pt's ulcerative colitis without Prednisone. Decision was made to start biologic for moderately active ulcerative colitis in the setting of cirrhosis. Patient will be maintained on Mesalamine until stabilized. (2) Hepatic encephalopathy: Status: Acute Assessment and Plan: Patient is not overtly encephalopathic today. His ammonia level is still elevated. There are some continued problems with excessive diarrhea after Lactulose will consider trying to decrease the Lactulose dosing, especially, with the low Magnesium level we are seeing. (3) Hypomagnesemia: Status: Acute Assessment and Plan: Mag level low. He will be given 2gm IV today. Will continue to monitor ? weekly for 2 weeks. (4) Hypoalbuminemia: Status: Acute Assessment and Plan: Patient tells me that he is back eating less protein and more fruit this got us into problems previously. (Albumin is trending back down. Tried to get him to consider eating 2-4 ounces of protein daily. He is going to go back to [facility] [place] to get a Transplant evaluation. He has not been drinking since 09/2020 Fall Risk Details Current Medications: Current Medications Generic Name Dose Route Start Last Admin Trade Name Freq PRN Reason Stop Dose Admin Infliximab-DYYB 500 mg/ Sodium 250 mls @ 125 mls/hr 03/09/21 07:45 Chloride IV 03/09/21 09:44 ONCE ONE Time Spent With Patient Time: Total time spent is greater than 50% in coordination of care (as documented) at patient's floor/unit and/or counseling patient: 28 Time with patient: 25 - 35 minutes
[2021-03-09 09:31] LABS: MANUAL DIFF FLAG NO
[2021-03-09 09:32] LABS: Basophils Percent Auto 0.7 % (0-2); Eosinophils Absolute Auto 0.1 X10*3/uL (0.0-0.4); Eosinophils Percent Auto 1.7 % (0-4); Hematocrit 35.8 % (42-52); Hemoglobin 11.8 g/dl (14.0-18.0); Lymphocytes Absolute Auto 0.9 X10*3/uL (1.2-4.9); Lymphocytes Percent Auto 32.5 % (20-40); Mean Corpuscular Hemoglobin 31.8 pg (27.0-33.0); Mean Corpuscular Volume 96.5 fL (80-98); Mean Platelet Volume 8.8 fL (9.4-12.4); Monocytes Absolute Auto 0.3 X10*3/uL (0.1-1.2); Neutrophils Absolute Auto 1.6 X10*3/uL (2.0-8.3); Neutrophils Percent Auto 56.1 % (45-73); Platelet Count 169 X10*3/uL (160-400); Red Blood Count 3.71 X10*6/uL (4.60-5.80); Red Cell Distribution Width 13.9 % (11.0-16.0); White Blood Count 2.9 X10*3/uL (4.8-10.8)
[2021-03-09 09:51] LABS: Ammonia 78 umol/L (13-55)
[2021-03-09 09:59] LABS: Magnesium 1.5 mg/dL (1.6-2.6)
[2021-03-09 10:01] LABS: Alanine Aminotransferase 47 U/L (0-40); Albumin Level 2.3 g/dL (3.5-5.0); Alkaline Phosphatase 262 U/L (39-117); Anion Gap 11 (12-20); Aspartate Amino Transferase 85 U/L (5-37); Bilirubin Total 2.2 mg/dL (0.0-1.0); Blood Urea Nitrogen 7 mg/dL (9-16); C Reactive Protein 2.46 mg/dL (< or = 0.50); Calcium 7.9 mg/dL (8.4-10.2); Carbon Dioxide 20 mmol/L (22-29); Chloride 108 mmol/L (96-108); Estimated Glomerular Filt Rate > 60; Glucose Random 256 mg/dL (60-115); Potassium 3.9 mmol/L (3.3-5.1); Sodium 135 mmol/L (135-145); Total Protein 6.9 g/dL (6.5-8.0)
[2021-03-09 10:20] LABS: Ferritin 88 ng/mL (20-250)
== END 2021-03-09 07:22 | disposition home or self-care (01) ==
LOC: HO.MDS 07:21
PROVIDERS: PCP Nurse Practitioner Family; Visit Provider Internal Medicine Gastroenterology
DX: K51.90 Ulcerative colitis, unspecified, without complications (principal); K72.90 Hepatic failure, unspecified without coma; E83.42 Hypomagnesemia; E88.09 Other disorders of plasma-protein metabolism, not elsewhere classified
CPT/HCPCS: 36415; 80053; 82140; 82728; 83735; 85025; 86140; 96375; 96413; 96415; J1745; J3475; Q5103

== ENCOUNTER 2021-03-23 07:21 | Outpatient (REF) | payer OTHER, SELFPAY | END 2021-03-23 07:22 | disposition home or self-care (01) | LOC: HO.MDS 07:21 | PROVIDERS: PCP Nurse Practitioner Family; Visit Provider Internal Medicine Gastroenterology | DX: K51.90 Ulcerative colitis, unspecified, without complications (principal) | CPT/HCPCS: 96413; 96415; Q5103 ==

== ENCOUNTER 2021-04-08 10:19 | Outpatient (REF) | payer OTHER, SELFPAY ==
[2021-04-08 12:24] LABS: Estimated Average Glucose 91 mg/dL; Hemoglobin A1c % 4.8 %
== END 2021-04-08 10:20 | disposition home or self-care (01) ==
LOC: HO.HMGCLDS 10:19
PROVIDERS: PCP Nurse Practitioner Family; Visit Provider Nurse Practitioner Family
DX: R73.9 Hyperglycemia, unspecified (principal)
CPT/HCPCS: 36415; 83036

== ENCOUNTER 2021-04-20 07:24 | Outpatient (REF) | payer OTHER, SELFPAY | END 2021-04-20 07:25 | disposition home or self-care (01) | LOC: HO.MDS 07:24 | PROVIDERS: PCP Nurse Practitioner Family; Visit Provider Internal Medicine Gastroenterology | DX: K51.90 Ulcerative colitis, unspecified, without complications (principal) | CPT/HCPCS: 96413; 96415; Q5103 ==

== ENCOUNTER 2021-05-10 07:00 | Outpatient (REF) | payer OTHER, SELFPAY ==
[2021-05-10 07:24] LABS: MANUAL DIFF FLAG NO
[2021-05-10 07:41] LABS: Ammonia 147 umol/L (13-55)
[2021-05-10 07:44] LABS: Basophils Percent Auto 0.8 % (0-2); Eosinophils Absolute Auto 0.1 X10*3/uL (0.0-0.4); Eosinophils Percent Auto 3.7 % (0-4); Hematocrit 33.5 % (42-52); Hemoglobin 11.8 g/dl (14.0-18.0); Imm Gran Abs Auto 0.02 X10*3/uL (0.00-0.03); Imm Gran Pct Auto 0.5 % (0.0-0.4); Lymphocytes Absolute Auto 1.4 X10*3/uL (1.2-4.9); Lymphocytes Percent Auto 36.1 % (20-40); Mean Corpuscular HGB Conc 35.2 g/dl (31.0-36.0); Mean Corpuscular Hemoglobin 32.1 pg (27.0-33.0); Mean Platelet Volume 8.9 fL (9.4-12.4); Monocytes Absolute Auto 0.6 X10*3/uL (0.1-1.2); Monocytes Percent Auto 15.1 % (2-11); Neutrophils Absolute Auto 1.7 X10*3/uL (2.0-8.3); Neutrophils Percent Auto 43.8 % (45-73); Platelet Count 162 X10*3/uL (160-400); Red Blood Count 3.68 X10*6/uL (4.60-5.80); Red Cell Distribution Width 16.5 % (11.0-16.0); White Blood Count 3.8 X10*3/uL (4.8-10.8)
[2021-05-10 07:45] LABS: INTERNATIONAL NORM RATIO 1.3 (0.9-1.1); Prothrombin Time 15.6 SEC (10.8-13.0)
[2021-05-10 07:50] LABS: Estimated Average Glucose 97 mg/dL
[2021-05-10 07:57] LABS: Alanine Aminotransferase 151 U/L (0-40); Albumin Level 2.3 g/dL (3.5-5.0); Alkaline Phosphatase 378 U/L (39-117); Anion Gap 9 (12-20); Aspartate Amino Transferase 321 U/L (5-37); Bilirubin Total 2.8 mg/dL (0.0-1.0); Blood Urea Nitrogen 10 mg/dL (9-16); C Reactive Protein 2.77 mg/dL (< or = 0.50); Calcium 8.7 mg/dL (8.4-10.2); Carbon Dioxide 21 mmol/L (22-29); Chloride 109 mmol/L (96-108); Estimated Glomerular Filt Rate > 60; Glucose Random 99 mg/dL (60-115); Magnesium 1.6 mg/dL (1.6-2.6); Potassium 4.3 mmol/L (3.3-5.1); Sodium 135 mmol/L (135-145); Total Protein 7.2 g/dL (6.5-8.0)
== END 2021-05-10 07:01 | disposition home or self-care (01) ==
LOC: HO.LAB 07:00
PROVIDERS: PCP Nurse Practitioner Family; Visit Provider Internal Medicine Gastroenterology
DX: K76.0 Fatty (change of) liver, not elsewhere classified (principal); E88.09 Other disorders of plasma-protein metabolism, not elsewhere classified; K72.90 Hepatic failure, unspecified without coma; K51.90 Ulcerative colitis, unspecified, without complications; E83.42 Hypomagnesemia; D64.9 Anemia, unspecified; D68.9 Coagulation defect, unspecified
CPT/HCPCS: 36415; 80053; 82140; 83036; 83735; 85025; 85610; 86140

== ENCOUNTER 2021-06-04 11:37 | Emergency (ER) | payer OTHER, SELFPAY ==
--- NOTE | ~2021-06-04 | XR_ITS ---
EXAMINATION: XR CHEST CLINICAL INFORMATION: Acute mental status change. COMPARISON: Previous chest x-ray January 2021. TECHNIQUE: Frontal view of the chest was obtained. FINDINGS: Exam is limited due to low lung volumes and patient positioning. The cardiac and mediastinal contours are stable. There are increased perihilar markings, left greater than right. It is uncertain whether this could represent pulmonary edema or pneumonia or is artifactual. There is no pleural effusion or pneumothorax. No acute osseous abnormality is seen. XR/XR chest 1V IMPRESSION: Limited exam. Increased left perihilar markings. This is not seen on subsequent CT of the abdomen and pelvis obtained later the same day and therefore probably artifactual related to technique.
--- NOTE | ~2021-06-04 | CT_ITS ---
EXAMINATION: CT BRAIN WITHOUT CONTRAST. CT ABDOMEN PELVIS WITH CONTRAST. CLINICAL INFORMATION: Altered mental syndrome right upper quadrant abdominal fullness with history of cirrhosis. COMPARISON: CT brain the 21. TECHNIQUE: 5 mm thin axial and reformatted 2 mm thin coronal and sagittal images were obtained. Subsequently axial 5 mm thin and reformatted 3 mm thin sagittal and coronal images of abdomen and pelvis were obtained without contrast. DLP [id number] FINDINGS: Brain: There is no acute intra-axial, extra-axial bleed, masses or midline shift. There is no acute infarct in evolution. The lateral ventricles are symmetrical in size and position without enlargement. The curry to white matter differences is maintained. Bone windows reveal no calvarial abnormality. There is no scalp soft tissue abnormality. Bilateral paranasal sinuses and mastoid air cells are well-aerated. Abdominal and pelvis: The lung bases are clear. The heart size is normal. There is a lobulated [place] in cirrhotic liver with heterogeneity. The gallbladder is mildly distended with a small radiopaque 7 mm dependent calculi. No wall thickening seen. The spleen is mildly enlarged measuring 12.6 cm The pancreas is homogeneous in density and normal size. Bilateral adrenal glands are normal. Both kidneys are normal size shape and position. There is a nonenhancing 1.7 cm cyst lower pole cortex left kidney. There is diffuse retroperitoneal haziness surrounding the celiac axis and the estimated small ill-defined low-density adenopathy. In addition there is diffuse mesenteric haziness as well likely venous congestion. There are a few scattered mesenteric lymph nodes on axial image 48/14. There is a small umbilical hernia containing loculated fluid. There is scattered stool and gas seen in the colon without distention. The small bowel loops are normal caliber. The stomach is nondistended however there is mild gastric wall thickening. Imaging off the pelvis reveals diffuse mesenteric haziness for the urinary bladder is distended with likely a small urachal remnant. There are is intramural fat within the sigmoid colon, nonspecific finding. Is no free fluid in the pelvis. No abnormal inguinal adenopathy. Prominent vessels are seen in the left inguinal canal. CT/CT abdomen pelvis w con IMPRESSION: Small shrunken cirrhotic liver without any focal lesion. There is diffuse mesenteric haziness and upper retroperitoneal low-density lymph nodes. Distended gallbladder with 7 mm radiopaque calculi. Nonspecific gastric wall thickening. There is no evidence of ascites or free air. Small cyst lower pole left kidney. Loculated fluid collection in the umbilicus. No acute intracranial process seen.
[2021-06-04 11:39] VITALS: BP 136/79; PULSE 80; RESP 16; TEMP 36.8; O2SAT 98; BMI 37.3
--- NOTE | 2021-06-04 11:41 | ECG_ITS ---
Test Reason : WEAKNESS Blood Pressure : / mmHG Vent. Rate : 077 BPM Atrial Rate : 077 BPM P-R Int : 216 ms QRS Dur : 086 ms QT Int : 406 ms P-R-T Axes : 040 -08 -04 degrees QTc Int : 459 ms Sinus rhythm with 1st degree A-V block Minimal voltage criteria for LVH, may be normal variant Inferior infarct (cited on or before 03-NOV-2020) Cannot rule out Anterior infarct (cited on or before 03-NOV-2020) Abnormal ECG When compared with ECG of 25-JAN-2021 23:37, Vent. rate has decreased BY 40 BPM Questionable change in initial forces of Anterior leads Nonspecific T wave abnormality has replaced inverted T waves in Anterior leads Referred By: Malka Muller Electronically Signed By:Jean Carlos Randle
--- NOTE | 2021-06-04 12:07 | ED.GENADULT ---
HPI - General Adult General Chief complaint: Recheck/Abnormal Lab/Rx Stated complaint: AMS Time Seen by Provider: 06/04/21 11:40 Source: patient and family ( at bedside) Mode of arrival: ambulatory Limitations: no limitations History of Present Illness HPI narrative: 55-year-old male with a past medical history of alcoholic liver cirrhosis with ascites, coagulopathy, UC, portal hypertension and esophageal varices who is presenting to the hospital with at bedside complaining of increased confusion over the past week worse today. Patient reports he has also has been having some dizziness. He also feels like ?I have water in my stomach?. He reports his last drink was September of 2020 and has been sober since then. Denies any drug usage. He denies any chills, fevers, falls or head trauma, headaches, changes in vision, neck pain/stiffness, chest pain, shortness of breath, dyspnea on exertion, orthopnea, palpitations, back pain, abdominal pain, dysuria, hematuria, diarrhea, constipation, black or bloody stools, recent travel or sick contacts or any other symptoms complaints or concerns at this time. - Patient was recently seen here on 01/25/2021 for same complaint and admitted until 01/27/2021 for acute hepatic encephalopathy; advanced hepatic cirrhosis; coagulopathy; alcohol abuse; ulcerative colitis; anemia. He was started on lactulose when he was admitted and had repeat ammonia is which decreased to 106 from 147 on admission. His confusion had resolved. Then they discharged him home with a prescription for lactulose q.i.d.. Although patient reports that he was going to the bathroom too often therefore he is taking lactulose twice a day. Related Data Home Medications Medication Instructions Recorded Confirmed spironolactone 50 mg PO DAILY 06/04/21 06/04/21 vedolizumab [Entyvio] 300 mg IV Q8W 06/04/21 06/04/21 Previous Rx's Medication Instructions Recorded Lialda 1.2 gram tablet,delayed 4.8 g PO DAILY 30 Days #120 tab NS 04/13/21 release calcium carbonate 500 mg calcium 500 mg PO BID 30 Days #60 tab 04/13/21 (1,250 mg) tablet cholecalciferol (vitamin D3) 1,250 50,000 unit PO QWEEK 90 Days #12 04/13/21 mcg (50,000 unit) capsule cap ferrous sulfate 325 mg (65 mg 325 mg PO TID #90 tab 04/13/21 iron) tablet hydroxyzine HCl 25 mg tablet 25 mg PO BEDTIME 30 Days #30 tab 04/13/21 lactulose 20 gram/30 mL oral 30 g PO TID 30 Days #4050 ml 04/13/21 solution omeprazole 20 mg capsule,delayed 20 mg PO QAM #60 cap 04/13/21 release rifaximin 550 mg tablet 550 mg PO BID 30 Days #60 tab 04/13/21 furosemide 20 mg tablet 20 mg PO QAM 30 Days #30 tab 05/25/21 Allergies Allergy/AdvReac Type Severity Reaction Status Date / Time No Known Allergies Allergy Verified 04/08/21 09:53 [No Known Allergies*] Review of Systems Review of Systems: Constitutional : Positive fatigue/malaise, No Fever, No Chills, No Night Sweats ENT/Mouth : No Ear Pain, No Nasal Congestion, No Sinus Pain, No sore throat, No Rhinorrhea Eyes: No Eye Pain, No Swelling, No Redness, No Foreign Body, No Discharge, No Vision Changes Cardiovascular : No Chest Pain, No SOB, No Dyspnea on Exertion, No Orthopnea, No Palpitations Respiratory : No Cough, No Sputum, No Wheezing, No Dyspnea Gastrointestinal : No Nausea, No Vomiting, No Diarrhea, No Constipation, No abdominal Pain, No Hematochezia, No Melena Genitourinary : No Dysuria, No Urinary Frequency, No Urinary Incontinence, No Urgency, No Flank Pain Musculoskeletal : No joint pain, No Myalgias Skin : No lacerations Neuro : Positive confusion, positive intermittent dizziness, No Focal weakness, no general weakness, No Numbness, No Paresthesias, No Loss of Consciousness, No Headache Yes all other systems are reviewed and are negative [facility] Past Medical History Attestation statement: The following information was validated with the patient. 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 Ulcerative colitis Surgical History History of esophagogastroduodenoscopy (EGD) Hx of colonoscopy Family History Family History Sister History of liver cancer Social History Social History Household Members: Spouse Household Members Other:: 2 Housing: House Do you presently have visiting nurse or other home services: No Alcohol intake: current Alcohol intake frequency: does not drink Advance Directives: No Advance Directives Information Provided: Yes service: No Current occupational status: unemployed Physical Exam Vital Signs: Vital Signs: Last Vital Signs Temp 98.3 F 06/04/21 11:39 Pulse 80 06/04/21 11:39 Resp 16 06/04/21 11:39 BP 136/79 06/04/21 11:39 Pulse Ox 98 06/04/21 11:39 Body Mass Index 37.3 Vital signs have been reviewed as normal and appeared to be correct. Blood pressure normal. Heart rate normal. Respiration rate normal. Temperature normal. Oxygen saturation normal. Appearance: Alert. Oriented X3. No acute distress. Head: Normal external exam. Normocephalic. Atraumatic. Able to rotate head bilaterally. Eyes: PERRLA. EOMI. No nystagmus noted. Conjunctiva and sclera normal. Eyelids normal. Corneal reflex normal. ENT: EAC normal. TM's Normal. Hearing normal. Pharynx normal. Uvula midline. tongue midline. Moist mucous membranes. No trismus noted. No drooling noted. No muffled voice noted. No nystagmus noted. Neck: Normal inspection. Neck supple. FROM. No adenopathy. Trachea midline. Thyroid Normal. No meningeal signs. No neck mass noted. CVS: Normal heart rate and rhythm. Heart sound normal. No murmurs noted. Pulses normal throughout. Respiratory: No respiratory distress. Painless inspiration. Breath sounds normal. No wheezes/rales/rhonchi noted. Chest nontender. No accessory muscle usage noted or decreased air movement noted. Abdomen: Soft and nontender. Bowel sounds normal in all 4 quadrants. Mild distention noted. No organomegaly noted. No visible injury noted. Back: No CVA tenderness. Full range of motion noted. Skin: Skin warm and dry. Normal skin color. Normal skin turgor. No rashes/lesions/lacerations noted. Extremities: No lower extremity edema. No calf tenderness is noted. Extremities exhibit normal range of motion. Extremities nontender. Able to shrug shoulders bilaterally and keep up against resistance. Neuro: Oriented X 3. No motor deficit. No sensory deficit. Reflexes normal. Moving all extremities. No focal motor deficits. Cranial nerves II-XI intact bilaterally. Facial strength normal. Normal cognition. Speech normal. Gait normal. Strength 5/5 throughout. No pronator drift. No tremor noted. No fasciculations noted. No rigidity noted. Muscle tone normal throughout. No asterixis noted. Cnoibd-bo-aebk test normal. Heel to bartholomew test normal. Tandem gait normal. Does not sway with eyes open. Romberg test negative. Rapid alternating movement upper extremity normal. Rapid alternating movement lower extremity normal. Hand drop from overhead Misses face. NIHSS score 0. Course Course Course Narrative: 11:41am - 55-year-old male with a past medical history of alcoholic liver cirrhosis with ascites, coagulopathy, UC, portal hypertension and esophageal varices who is presenting to the hospital with at bedside complaining of increased confusion over the past week worse today with associated increased fatigue/malaise intermittent dizziness and feeling like he has fluid in his right upper quadrant. Denies trauma. Plan: Labs, CT scan of brain, CXR, EKG, blood cultures, lactic acid. Provide a L of IV fluids and re-evaluate. Reevaluation(s) Reevaluation #1: - patient's white blood cell count 2000. Patient with a baseline anemia similar when compared to prior. PT INR similar compared to prior. Chloride and carbon dioxide similar compared to prior. Anion gap 11. Random glucose 144. Total bilirubin 2.7. AST/ALT/alkaline phosphate/ammonia 150/81/388/101. All which are similar and improved when compared to prior. Total CPK 234. CRP 2.45. Albumin 2.4. Lipase 132. Lactic acid 2.2. Repeat lactic acid 2.1. Although I did not believe this is sepsis. - all other labs are within normal limits. - CT scan of the brain within normal limits no acute processes are noted. CT scan abdomen pelvis revealed small shrunken cirrhotic liver without any focal lesion along with a distended gallbladder with 7 mm calculi otherwise other chronic changes no acute processes noted. - I offered admission although patient with at bedside report that he does not feel confused and his feels that since he has been here and received a L fluids his confusion has completely resolved and she would rather take him home. - I consulted with the general surgeon Dr. Patten regarding the patient's gallstone and his elevated lipase at 132 and he reported that this is most likely chronic gallstone and that he is not a surgical candidate and he can follow up with his PCP. Therefore I discussed this with the patient and his instruct him to return if any new or worsening symptoms and to follow up with primary care provider and to continue taking the lactulose at least 3 to 4 times a day. They understand agree plan. Time: 15:50 Medical Decision Making Medical Records Medical records reviewed: Yes I reviewed the patient's medical records. Lab Data Lab results reviewed: Yes I reviewed the patient's lab results. Result diagrams: 06/04/21 12:07 06/04/21 13:11 Labs: Lab Results 06/04/21 06/04/21 06/04/21 Range/Units 12:07 12:07 12:07 WBC 2.8 L (4.8-10.8) X10*3/uL RBC 3.94 L (4.60-5.80) X10*6/uL Hgb 12.6 L (14.0-18.0) g/dl Hct 36.8 L (42-52) % MCV 93.4 (80-98) fL MCH 32.0 (27.0-33.0) pg MCHC 34.2 (31.0-36.0) g/dl RDW 16.8 H (11.0-16.0) % Plt Count 160 (160-400) X10*3/uL MPV 8.7 L (9.4-12.4) fL Immature Gran % (Auto) 0.4 (0.0-0.4) % Neut % (Auto) 47.0 (45-73) % Lymph % (Auto) 35.4 (20-40) % [place] % (Auto) 13.6 H (2-11) % Eos % (Auto) 2.9 (0-4) % Baso % (Auto) 0.7 (0-2) % Lymph # (Auto) 1.0 L (1.2-4.9) X10*3/uL [place] # (Auto) 0.4 (0.1-1.2) X10*3/uL Eos # (Auto) 0.1 (0.0-0.4) X10*3/uL Baso # (Auto) 0.0 (0.0-0.2) X10*3/uL Abs Immat Gran (auto) 0.01 (0.00-0.03) X10*3/uL Absolute Neuts (auto) 1.3 L (2.0-8.3) X10*3/uL Absolute Nucleated RBC 0.000 (0.0-0.012) X10*3/uL Nucleated RBC % (auto) 0.0 (0.0-0.2) /100WBC ESR (0-15) MM/HR PT (9.9-13.0) SEC INR (0.9-1.1) Sodium (135-145) mmol/L Potassium (3.3-5.1) mmol/L Chloride (96-108) mmol/L Carbon Dioxide (22-29) mmol/L Anion Gap (12-20) BUN (9-16) mg/dL Creatinine (0.5-1.4) mg/dL Estim Creat Clear Calc Estimated GFR Random Glucose (60-115) mg/dL Lactic Acid (0.5-2.0) mmol/L Lactic Acid Fup @ 2Hr (0.5-2.0) mmol/L Calcium (8.4-10.2) mg/dL Magnesium (1.6-2.6) mg/dL Total Bilirubin (0.0-1.0) mg/dL AST (5-37) U/L ALT (0-40) U/L Alkaline Phosphatase (39-117) U/L Ammonia 101 H (13-55) umol/L Total Creatine Kinase (38-174) U/L C-Reactive Protein (< or = 0.50) mg/dL Total Protein (6.5-8.0) g/dL Albumin (3.5-5.0) g/dL Lipase (8-78) U/L Ethyl Alcohol < 10 mg/dL 06/04/21 06/04/21 06/04/21 Range/Units 12:07 12:36 12:36 WBC (4.8-10.8) X10*3/uL RBC (4.60-5.80) X10*6/uL Hgb (14.0-18.0) g/dl Hct (42-52) % MCV (80-98) fL MCH (27.0-33.0) pg MCHC (31.0-36.0) g/dl RDW (11.0-16.0) % Plt Count (160-400) X10*3/uL MPV (9.4-12.4) fL Immature Gran % (Auto) (0.0-0.4) % Neut % (Auto) (45-73) % Lymph % (Auto) (20-40) % [place] % (Auto) (2-11) % Eos % (Auto) (0-4) % Baso % (Auto) (0-2) % Lymph # (Auto) (1.2-4.9) X10*3/uL [place] # (Auto) (0.1-1.2) X10*3/uL Eos # (Auto) (0.0-0.4) X10*3/uL Baso # (Auto) (0.0-0.2) X10*3/uL Abs Immat Gran (auto) (0.00-0.03) X10*3/uL Absolute Neuts (auto) (2.0-8.3) X10*3/uL Absolute Nucleated RBC (0.0-0.012) X10*3/uL Nucleated RBC % (auto) (0.0-0.2) /100WBC ESR 63 H (0-15) MM/HR PT 14.4 H (9.9-13.0) SEC INR 1.3 H (0.9-1.1) Sodium (135-145) mmol/L Potassium (3.3-5.1) mmol/L Chloride (96-108) mmol/L Carbon Dioxide (22-29) mmol/L Anion Gap (12-20) BUN (9-16) mg/dL Creatinine (0.5-1.4) mg/dL Estim Creat Clear Calc Estimated GFR Random Glucose (60-115) mg/dL Lactic Acid 2.2 H* (0.5-2.0) mmol/L Lactic Acid Fup @ 2Hr (0.5-2.0) mmol/L Calcium (8.4-10.2) mg/dL Magnesium (1.6-2.6) mg/dL Total Bilirubin (0.0-1.0) mg/dL AST (5-37) U/L ALT (0-40) U/L Alkaline Phosphatase (39-117) U/L Ammonia (13-55) umol/L Total Creatine Kinase (38-174) U/L C-Reactive Protein (< or = 0.50) mg/dL Total Protein (6.5-8.0) g/dL Albumin (3.5-5.0) g/dL Lipase (8-78) U/L Ethyl Alcohol mg/dL 06/04/21 06/04/21 06/04/21 Range/Units 12:36 13:11 15:17 WBC (4.8-10.8) X10*3/uL RBC (4.60-5.80) X10*6/uL Hgb (14.0-18.0) g/dl Hct (42-52) % MCV (80-98) fL MCH (27.0-33.0) pg MCHC (31.0-36.0) g/dl RDW (11.0-16.0) % Plt Count (160-400) X10*3/uL MPV (9.4-12.4) fL Immature Gran % (Auto) (0.0-0.4) % Neut % (Auto) (45-73) % Lymph % (Auto) (20-40) % [place] % (Auto) (2-11) % Eos % (Auto) (0-4) % Baso % (Auto) (0-2) % Lymph # (Auto) (1.2-4.9) X10*3/uL [place] # (Auto) (0.1-1.2) X10*3/uL Eos # (Auto) (0.0-0.4) X10*3/uL Baso # (Auto) (0.0-0.2) X10*3/uL Abs Immat Gran (auto) (0.00-0.03) X10*3/uL Absolute Neuts (auto) (2.0-8.3) X10*3/uL Absolute Nucleated RBC (0.0-0.012) X10*3/uL Nucleated RBC % (auto) (0.0-0.2) /100WBC ESR (0-15) MM/HR PT (9.9-13.0) SEC INR (0.9-1.1) Sodium 137 (135-145) mmol/L Potassium 4.1 (3.3-5.1) mmol/L Chloride 112 H (96-108) mmol/L Carbon Dioxide 18 L (22-29) mmol/L Anion Gap 11 L (12-20) BUN 12 (9-16) mg/dL Creatinine 1.12 (0.5-1.4) mg/dL Estim Creat Clear Calc 94.1 Estimated GFR > 60 Random Glucose 144 H D (60-115) mg/dL Lactic Acid (0.5-2.0) mmol/L Lactic Acid Fup @ 2Hr 2.1 H* (0.5-2.0) mmol/L Calcium 8.5 (8.4-10.2) mg/dL Magnesium 1.6 (1.6-2.6) mg/dL Total Bilirubin 2.7 H (0.0-1.0) mg/dL AST 150 H (5-37) U/L ALT 81 H (0-40) U/L Alkaline Phosphatase 388 H (39-117) U/L Ammonia (13-55) umol/L Total Creatine Kinase 234 H D (38-174) U/L C-Reactive Protein 2.45 H (< or = 0.50) mg/dL Total Protein 8.0 (6.5-8.0) g/dL Albumin 2.4 L (3.5-5.0) g/dL Lipase 132 H (8-78) U/L Ethyl Alcohol mg/dL Imaging Data Chest x-ray: Attestation: I personally reviewed and interpreted this imaging study as follows: CT scan abdomen and pelvis with IV contrast and CT scan of brain without contrast: Attestation: I personally reviewed and interpreted this imaging study as follows: Radiologist's impression: FINDINGS: Brain: There is no acute intra-axial, extra-axial bleed, masses or midline shift. There is no acute infarct in evolution. The lateral ventricles are symmetrical in size and position without enlargement. The curry to white matter differences is maintained. Bone windows reveal no calvarial abnormality. There is no scalp soft tissue abnormality. Bilateral paranasal sinuses and mastoid air cells are well-aerated. Abdominal and pelvis: The lung bases are clear. The heart size is normal. There is a lobulated [place] in cirrhotic liver with heterogeneity. The gallbladder is mildly distended with a small radiopaque 7 mm dependent calculi. No wall thickening seen. The spleen is mildly enlarged measuring 12.6 cm The pancreas is homogeneous in density and normal size. Bilateral adrenal glands are normal. Both kidneys are normal size shape and position. There is a nonenhancing 1.7 cm cyst lower pole cortex left kidney. There is diffuse retroperitoneal haziness surrounding the celiac axis and the estimated small ill-defined low-density adenopathy. In addition there is diffuse mesenteric haziness as well likely venous congestion. There are a few scattered mesenteric lymph nodes on axial image 48/14. There is a small umbilical hernia containing loculated fluid. There is scattered stool and gas seen in the colon without distention. The small bowel loops are normal caliber. The stomach is nondistended however there is mild gastric wall thickening. Imaging off the pelvis reveals diffuse mesenteric haziness for the urinary bladder is distended with likely a small urachal remnant. There are is intramural fat within the sigmoid colon, nonspecific finding. Is no free fluid in the pelvis. No abnormal inguinal adenopathy. Prominent vessels are seen in the left inguinal canal. CT/CT head/brain wo con IMPRESSION: Small shrunken cirrhotic liver without any focal lesion. There is diffuse mesenteric haziness and upper retroperitoneal low-density lymph nodes. Distended gallbladder with 7 mm radiopaque calculi. Nonspecific gastric wall thickening. There is no evidence of ascites or free air. Small cyst lower pole left kidney. Loculated fluid collection in the umbilicus. No acute intracranial process seen. ECG Data Attestation: I personally reviewed and interpreted this ECG as follows: Interpretation: Sinus rhythm with first-degree AV block with minimal voltage criteria for LVH nonspecific ST abnormalities no acute ischemic change noted. Similar compared to prior EKG on 06/04/2020 Critical Care Time Critical Care Time Critical Care Time: Yes Total Critical Care Time: 60 Attestation: I personally attest to this time spent taking care of the patient Discharge Plan Discharge Clinical Impression: Advanced hepatic cirrhosis, Gallstones Patient Disposition: Home, Self-Care Instructions: Cirrhosis (ED), Gallstones (ED) Additional Instructions: I offered to admission although you declined today because the lab work had improved and he felt like his confusion was resolved while he was here in the ER. Please return if the confusion returns or any other symptoms and please follow-up with your primary care provider. Prescriptions: No Action calcium carbonate [Oyster Shell Calcium] 500 mg calcium (1,250 mg) tablet 500 mg PO BID 30 Days Qty: 60 RF: 0 cholecalciferol (vitamin D3) 1,250 mcg (50,000 unit) capsule 50,000 unit PO QWEEK 90 Days Qty: 12 RF: 0 ferrous sulfate 325 mg (65 mg iron) tablet 325 mg PO TID Qty: 90 RF: 2 hydroxyzine HCl 25 mg tablet 25 mg PO BEDTIME 30 Days Qty: 30 RF: 1 lactulose 20 gram/30 mL solution 30 g PO TID 30 Days Qty: 4050 RF: 0 mesalamine [Lialda] 1.2 gram tablet,delayed release (DR/EC) 4.8 g PO DAILY 30 Days Qty: 120 RF: 2 omeprazole 20 mg capsule,delayed release(DR/EC) 20 mg PO QAM Qty: 60 RF: 3 Xifaxan 550 mg tablet 550 mg PO BID 30 Days Qty: 60 RF: 3 furosemide 20 mg tablet 20 mg PO QAM 30 Days Qty: 30 RF: 1 spironolactone 50 mg tablet 50 mg PO DAILY RF: 0 Entyvio 300 mg recon soln 300 mg IV Q8W RF: 0 Referrals: Manpreet Avila, [facility]NIC[facility] [Primary Care Provider] - 2 days
[2021-06-04 12:13] LABS: MANUAL DIFF FLAG NO
[2021-06-04 12:22] LABS: Basophils Percent Auto 0.7 % (0-2); Eosinophils Absolute Auto 0.1 X10*3/uL (0.0-0.4); Eosinophils Percent Auto 2.9 % (0-4); Hematocrit 36.8 % (42-52); Hemoglobin 12.6 g/dl (14.0-18.0); Imm Gran Abs Auto 0.01 X10*3/uL (0.00-0.03); Imm Gran Pct Auto 0.4 % (0.0-0.4); Lymphocytes Percent Auto 35.4 % (20-40); Mean Corpuscular HGB Conc 34.2 g/dl (31.0-36.0); Mean Corpuscular Volume 93.4 fL (80-98); Mean Platelet Volume 8.7 fL (9.4-12.4); Monocytes Absolute Auto 0.4 X10*3/uL (0.1-1.2); Monocytes Percent Auto 13.6 % (2-11); Neutrophils Absolute Auto 1.3 X10*3/uL (2.0-8.3); Platelet Count 160 X10*3/uL (160-400); Red Blood Count 3.94 X10*6/uL (4.60-5.80); Red Cell Distribution Width 16.8 % (11.0-16.0); White Blood Count 2.8 X10*3/uL (4.8-10.8)
[2021-06-04 12:29] LABS: Ammonia 101 umol/L (13-55)
[2021-06-04 12:37] LABS: Ethanol < 10 mg/dL
[2021-06-04] MEDS: 0.9 % Sodium Chloride 1,000 ML 999 ML IVCONT (12:47)
[2021-06-04 13:00] LABS: INTERNATIONAL NORM RATIO 1.3 (0.9-1.1); Prothrombin Time 14.4 SEC (9.9-13.0)
[2021-06-04 13:07] LABS: Erythrocyte Sedimentation Rate 63 MM/HR (0-15)
[2021-06-04 13:36] LABS: Lactic Acid 2.2 mmol/L (0.5-2.0)
[2021-06-04 13:39] LABS: C Reactive Protein 2.45 mg/dL (< or = 0.50); Magnesium 1.6 mg/dL (1.6-2.6)
[2021-06-04 13:58] LABS: Alanine Aminotransferase 81 U/L (0-40); Albumin Level 2.4 g/dL (3.5-5.0); Alkaline Phosphatase 388 U/L (39-117); Anion Gap 11 (12-20); Aspartate Amino Transferase 150 U/L (5-37); Bilirubin Total 2.7 mg/dL (0.0-1.0); Blood Urea Nitrogen 12 mg/dL (9-16); Calcium 8.5 mg/dL (8.4-10.2); Carbon Dioxide 18 mmol/L (22-29); Chloride 112 mmol/L (96-108); Creatinine Clr Calc Pharmacy 94.1; Estimated Glomerular Filt Rate > 60; Glucose Random 144 mg/dL (60-115); Lipase 132 U/L (8-78); Potassium 4.1 mmol/L (3.3-5.1); Sodium 137 mmol/L (135-145)
[2021-06-04] MEDS: iohexoL 350 MG/ML 100 ML INFUS..BTL IV (14:38)
[2021-06-04 14:45] LABS: Reflex Lactate? Lactic Acid Added
[2021-06-04 15:46] LABS: ~Lactic Acid-LAB USE ONLY 2.1 mmol/L (0.5-2.0)
[2021-06-04 17:20] LABS: Reflex Lactate? 2 Y
== END 2021-06-04 16:19 | disposition home or self-care (01) ==
PROVIDERS: Physician Assistant Medical; Emergency Provider Emergency Medicine; PCP Nurse Practitioner Family
DX: K74.60 Unspecified cirrhosis of liver (principal); K80.20 Calculus of gallbladder without cholecystitis without obstruction; D64.9 Anemia, unspecified; Z79.899 Other long term (current) drug therapy
CPT/HCPCS: 36415; 70450; 71045; 74177; 80053; 82077; 82140; 82550; 83605; 83690; 83735; 85025; 85610; 85652; 86140; 87040; 93005; 96360; 99284; 99291; Q9967

== ENCOUNTER 2021-06-07 07:20 | Outpatient (REF) | payer OTHER, SELFPAY ==
[2021-06-07 07:37] LABS: Hemoglobin 12.2 g/dl (14.0-18.0); MANUAL DIFF FLAG SCAN; PLT CLUMP 1; SCAN SMEAR FLAG 1
[2021-06-07 07:38] LABS: Basophils Percent Auto 0.5 % (0-2); Eosinophils Absolute Auto 0.1 X10*3/uL (0.0-0.4); Eosinophils Percent Auto 2.5 % (0-4); Imm Gran Abs Auto 0.01 X10*3/uL (0.00-0.03); Imm Gran Pct Auto 0.2 % (0.0-0.4); Lymphocytes Absolute Auto 1.4 X10*3/uL (1.2-4.9); Lymphocytes Percent Auto 31.4 % (20-40); Mean Corpuscular HGB Conc 34.9 g/dl (31.0-36.0); Mean Corpuscular Hemoglobin 32.4 pg (27.0-33.0); Mean Corpuscular Volume 93.1 fL (80-98); Mean Platelet Volume 8.6 fL (9.4-12.4); Monocytes Absolute Auto 0.7 X10*3/uL (0.1-1.2); Monocytes Percent Auto 15.3 % (2-11); Neutrophils Absolute Auto 2.2 X10*3/uL (2.0-8.3); Neutrophils Percent Auto 50.1 % (45-73); Platelet Count 147 X10*3/uL (160-400); Red Blood Count 3.76 X10*6/uL (4.60-5.80); White Blood Count 4.4 X10*3/uL (4.8-10.8)
[2021-06-07 07:49] LABS: Ammonia 113 umol/L (13-55)
[2021-06-07 07:51] LABS: INTERNATIONAL NORM RATIO 1.4 (0.9-1.1)
[2021-06-07 08:08] LABS: Alanine Aminotransferase 65 U/L (0-40); Albumin Level 2.3 g/dL (3.5-5.0); Alkaline Phosphatase 334 U/L (39-117); Anion Gap 10 (12-20); Aspartate Amino Transferase 106 U/L (5-37); Bilirubin Total 3.8 mg/dL (0.0-1.0); Blood Urea Nitrogen 11 mg/dL (9-16); C Reactive Protein 4.84 mg/dL (< or = 0.50); Calcium 8.2 mg/dL (8.4-10.2); Carbon Dioxide 21 mmol/L (22-29); Chloride 108 mmol/L (96-108); Estimated Glomerular Filt Rate > 60; Glucose Random 131 mg/dL (60-115); Sodium 135 mmol/L (135-145); Total Protein 7.7 g/dL (6.5-8.0)
== END 2021-06-07 07:21 | disposition home or self-care (01) ==
LOC: HO.LAB 07:20
PROVIDERS: Absent Provider Internal Medicine Gastroenterology; PCP Nurse Practitioner Family; Visit Provider Internal Medicine Gastroenterology
DX: K51.90 Ulcerative colitis, unspecified, without complications (principal); K76.0 Fatty (change of) liver, not elsewhere classified; D68.9 Coagulation defect, unspecified; K72.90 Hepatic failure, unspecified without coma
CPT/HCPCS: 36415; 80051; 80053; 82140; 85025; 85610; 86140

== ENCOUNTER 2021-06-21 07:52 | Outpatient (REF) | payer OTHER, SELFPAY | END 2021-06-21 07:53 | disposition home or self-care (01) | LOC: HO.MDS 07:52 | PROVIDERS: PCP Nurse Practitioner Family; Visit Provider Internal Medicine Gastroenterology | DX: K51.90 Ulcerative colitis, unspecified, without complications (principal) | CPT/HCPCS: 96413; 96415; J1745 ==

== ENCOUNTER 2021-06-22 08:05 | Outpatient (REF) | payer OTHER, SELFPAY ==
--- NOTE | ~2021-06-22 | US_ITS ---
EXAMINATION: US ABDOMEN LIMITED WITH LIVER ELASTOGRAPHY CLINICAL INFORMATION: Primary sclerosing cholangitis. COMPARISON: None. TECHNIQUE: Real-time imaging of the abdominal viscera. Noninvasive ultrasound liver fibrosis assessment is performed using Enrique ElastPQ point quantification shear wave elastography (pSWE) with a C5-2 MHz transducer. Multiple elastography samples are obtained. FINDINGS: PANCREAS: Obscured by overlapping bowel gas. LIVER: The liver demonstrates normal size, contour and coarse, heterogeneous echogenicity. No focal lesion or intrahepatic biliary duct dilatation. The right lobe measures 14.7 cm in length. The left lobe measures 13.5 cm in length. Portal flow is towards the liver (hepatopetal). Shear wave liver elastography median stiffness is 3.88 m/s (reference: normal median stiffness is 1.3 m/s or less). IQR/median stiffness to assess sampling precision is 0.81 (reference: good quality data set is IQR/median stiffness of 0.15 or less). GALLBLADDER: lThe gallbladder is physiologically distended. There are layering gallstones, without evidence of sludge, polyps, wall thickening or pericholecystic fluid. COMMON BILE DUCT: Normal in caliber measuring 0.5 cm in diameter. RIGHT KIDNEY: At the interpolar aspect, a 9 mm anechoic, simple cyst is seen.. No hydronephrosis. No renal calculi or focal parenchymal lesions. The kidney measures 11.9 cm in maximum dimension. FREE FLUID: None. US/US abdomen vázquez w elastography IMPRESSION: 1. There is generalized increase in hepatic echotexture, consistent with fatty infiltration or hepatocellular disease. Please correlate clinically. Provided history of primary sclerosing cholangitis noted. No focal hepatic mass or intrahepatic biliary dilatation is seen. 2. Liver elastography: Although measurements are suggestive of compensated advanced chronic liver disease, there is statistical variability of the sampling which decreases accuracy. 3. There is cholelithiasis, without cholecystitis or choledocholithiasis. 4. A simple right renal cyst is incidentally noted. 5. Technically limited ultrasound examination of the pancreas. REFERENCE: Society of Radiologists in Ultrasound Liver Stiffness Thresholds (2020): LIVER STIFFNESS THRESHOLDS: *Liver Stiffness equal or less than 1.3 m/s: High probability of being normal. *Liver Stiffness less than 1.7 m/s: In the absence of other known clinical signs, rules out compensated advanced chronic liver disease. *Liver Stiffness 1.7-2.1 m/s: Suggestive of compensated advanced chronic liver disease but need further test for confirmation. *Liver Stiffness over 2.1 m/s: Rules in compensated advanced chronic liver disease. *Liver Stiffness over 2.4 m/s: Suggestive of clinically significant portal hypertension. QUALITY OF DATA SET: *IQR/Median value equal or less than 0.15 implies a quality data set. *IQR/Median value over 0.15 implies a poor quality data set. SIGNIFICANT CHANGE FROM PRIOR EXAM: Significant change if liver stiffness measurement is 10% or greater from prior exam. OTHER CONSIDERATIONS: The stage of liver fibrosis may be overestimated in the setting of acute hepatitis, liver inflammation, elevated liver function tests, hepatic vascular congestion, obstructive cholestasis, non-fasting state, and infiltrative diseases such as amyloidosis and lymphoma. In some patients with NAFLD, the liver stiffness thresholds for compensated advanced chronic liver disease may be lower. In causes other than viral hepatitis and NAFLD, liver stiffness thresholds are not well established.
== END 2021-06-22 08:06 | disposition home or self-care (01) ==
LOC: HO.US 08:05
PROVIDERS: Visit Provider Internal Medicine Gastroenterology
DX: K83.01 Primary sclerosing cholangitis (principal)
CPT/HCPCS: 76705; 76981

== ENCOUNTER 2021-07-07 08:04 | Outpatient (REF) | payer OTHER, SELFPAY ==
[2021-07-07 09:11] LABS: INTERNATIONAL NORM RATIO 1.4 (0.9-1.1); Prothrombin Time 15.7 SEC (9.9-13.0)
[2021-07-07 10:10] LABS: Alanine Aminotransferase 83 U/L (0-40); Albumin Level 2.3 g/dL (3.5-5.0); Alkaline Phosphatase 354 U/L (39-117); Anion Gap 12 (12-20); Aspartate Amino Transferase 147 U/L (5-37); Bilirubin Total 4.2 mg/dL (0.0-1.0); Blood Urea Nitrogen 9 mg/dL (9-16); Calcium 8.9 mg/dL (8.4-10.2); Carbon Dioxide 20 mmol/L (22-29); Chloride 105 mmol/L (96-108); Estimated Glomerular Filt Rate > 60; Glucose Random 87 mg/dL (60-115); Potassium 4.4 mmol/L (3.3-5.1); Sodium 133 mmol/L (135-145); Total Protein 8.5 g/dL (6.5-8.0)
== END 2021-07-07 08:05 | disposition home or self-care (01) ==
LOC: HO.LABR 08:04
PROVIDERS: PCP Nurse Practitioner Family; Visit Provider Physician Assistant
DX: K83.01 Primary sclerosing cholangitis (principal); K70.31 Alcoholic cirrhosis of liver with ascites; Z76.82 Awaiting organ transplant status
CPT/HCPCS: 36415; 80053; 85610

== ENCOUNTER 2021-08-04 09:57 | Outpatient (REF) | payer OTHER, SELFPAY ==
[2021-08-04 10:51] LABS: INTERNATIONAL NORM RATIO 1.3 (0.9-1.1); Prothrombin Time 15.3 SEC (9.9-13.0)
== END 2021-08-04 09:58 | disposition home or self-care (01) ==
LOC: HO.LABR 09:57
PROVIDERS: PCP Nurse Practitioner Family; Visit Provider Physician Assistant
DX: K83.01 Primary sclerosing cholangitis (principal); K70.31 Alcoholic cirrhosis of liver with ascites; Z76.82 Awaiting organ transplant status
CPT/HCPCS: 36415; 85610

== ENCOUNTER 2021-08-05 11:49 | Outpatient (REF) | payer OTHER, SELFPAY ==
[2021-08-05 13:07] LABS: INTERNATIONAL NORM RATIO 1.3 (0.9-1.1)
[2021-08-05 13:17] LABS: Alanine Aminotransferase 93 U/L (0-40); Albumin Level 2.3 g/dL (3.5-5.0); Alkaline Phosphatase 370 U/L (39-117); Anion Gap 9 (12-20); Aspartate Amino Transferase 156 U/L (5-37); Bilirubin Total 3.4 mg/dL (0.0-1.0); Blood Urea Nitrogen 11 mg/dL (9-16); Calcium 8.6 mg/dL (8.4-10.2); Carbon Dioxide 21 mmol/L (22-29); Chloride 106 mmol/L (96-108); Estimated Glomerular Filt Rate > 60; Glucose Random 81 mg/dL (60-115); Potassium 4.2 mmol/L (3.3-5.1); Sodium 132 mmol/L (135-145); Total Protein 8.3 g/dL (6.5-8.0)
== END 2021-08-05 11:50 | disposition home or self-care (01) ==
LOC: HO.LABR 11:49
PROVIDERS: PCP Nurse Practitioner Family; Visit Provider Physician Assistant
DX: K83.01 Primary sclerosing cholangitis (principal); K70.31 Alcoholic cirrhosis of liver with ascites; Z76.82 Awaiting organ transplant status
CPT/HCPCS: 36415; 80053; 85610

== ENCOUNTER 2021-08-06 13:08 | Outpatient (REF) | payer OTHER, SELFPAY ==
--- NOTE | ~2021-08-06 | XR_ITS ---
EXAMINATION: XR CHEST CLINICAL INFORMATION: Cough COMPARISON: Chest radiograph from 06/04/2021 TECHNIQUE: 2 views of the chest were obtained. FINDINGS: Very mild left basilar atelectasis. No pneumothorax. Trachea is midline. Cardiomediastinal silhouette is not enlarged. No large pleural effusion. Degenerative changes of the thoracolumbar spine. Soft tissues are unremarkable. XR/XR chest 2V IMPRESSION: Very mild left basilar atelectasis.
== END 2021-08-06 13:09 | disposition home or self-care (01) ==
LOC: HO.HMGCX 13:08
PROVIDERS: PCP Nurse Practitioner Family; Visit Provider Hospitalist
DX: Z13.89 Encounter for screening for other disorder (principal)
CPT/HCPCS: 71046

== ENCOUNTER 2021-08-27 11:34 | Outpatient (REF) | payer OTHER, SELFPAY ==
[2021-08-27 13:15] LABS: INTERNATIONAL NORM RATIO 1.3 (0.9-1.1); Prothrombin Time 14.3 SEC (9.9-13.0)
[2021-08-27 13:55] LABS: Alanine Aminotransferase 113 U/L (0-40); Albumin Level 2.4 g/dL (3.5-5.0); Alkaline Phosphatase 355 U/L (39-117); Anion Gap 11 (12-20); Aspartate Amino Transferase 118 U/L (5-37); Bilirubin Total 2.8 mg/dL (0.0-1.0); Blood Urea Nitrogen 12 mg/dL (9-16); Calcium 8.3 mg/dL (8.4-10.2); Carbon Dioxide 18 mmol/L (22-29); Chloride 113 mmol/L (96-108); Estimated Glomerular Filt Rate > 60; Glucose Random 95 mg/dL (60-115); Potassium 4.5 mmol/L (3.3-5.1); Sodium 137 mmol/L (135-145); Total Protein 7.1 g/dL (6.5-8.0)
== END 2021-08-27 11:35 | disposition home or self-care (01) ==
LOC: HO.LABR 11:34
PROVIDERS: PCP Internal Medicine Gastroenterology; Visit Provider Physician Assistant
DX: K83.01 Primary sclerosing cholangitis (principal); K70.31 Alcoholic cirrhosis of liver with ascites; Z76.82 Awaiting organ transplant status
CPT/HCPCS: 36415; 80053; 85610; Q5103

== ENCOUNTER 2021-08-27 11:53 | Outpatient (REF) | payer OTHER, SELFPAY | END 2021-08-27 11:54 | disposition home or self-care (01) | LOC: HO.MDS 11:53 | PROVIDERS: PCP Nurse Practitioner Family; Visit Provider Internal Medicine Gastroenterology | DX: K51.90 Ulcerative colitis, unspecified, without complications (principal) | CPT/HCPCS: 96365; Q5103 ==

== ENCOUNTER → 2021-08-31 12:08 | Outpatient (BNVA) | payer OTHER, SELFPAY | PROVIDERS: Referring Provider Nurse Practitioner Family; Visit Provider Internal Medicine Gastroenterology ==

== ENCOUNTER 2021-10-22 08:46 | Outpatient (REF) | payer OTHER, SELFPAY | END 2021-10-22 08:47 | disposition home or self-care (01) | LOC: HO.MDS 08:46 | PROVIDERS: PCP Nurse Practitioner Family; Visit Provider Internal Medicine Gastroenterology | DX: K51.90 Ulcerative colitis, unspecified, without complications (principal) | CPT/HCPCS: 96361; 96413; 96415; Q5103 ==

== ENCOUNTER 2021-11-22 10:28 | Outpatient (REF) | payer OTHER, SELFPAY ==
[2021-11-22 11:15] LABS: INTERNATIONAL NORM RATIO 1.2 (0.9-1.1); Prothrombin Time 14.2 SEC (9.9-13.0)
[2021-11-22 11:37] LABS: Alanine Aminotransferase 90 U/L (0-40); Albumin Level 2.5 g/dL (3.5-5.0); Alkaline Phosphatase 446 U/L (39-117); Anion Gap 10 (12-20); Aspartate Amino Transferase 150 U/L (5-37); Blood Urea Nitrogen 18 mg/dL (9-16); Calcium 8.9 mg/dL (8.4-10.2); Carbon Dioxide 21 mmol/L (22-29); Chloride 107 mmol/L (96-108); Estimated Glomerular Filt Rate 50; Glucose Random 162 mg/dL (60-115); Potassium 4.9 mmol/L (3.3-5.1); Sodium 133 mmol/L (135-145); Total Protein 8.3 g/dL (6.5-8.0)
== END 2021-11-22 10:29 | disposition home or self-care (01) ==
LOC: HO.LABR 10:28
PROVIDERS: Visit Provider Physician Assistant
DX: K83.01 Primary sclerosing cholangitis (principal); K70.31 Alcoholic cirrhosis of liver with ascites; Z76.82 Awaiting organ transplant status
CPT/HCPCS: 36415; 80053; 85610

== ENCOUNTER 2021-11-23 14:36 | Outpatient (REF) | payer OTHER, SELFPAY ==
[2021-11-24 05:39] LABS: CDiff Gene PCR NEGATIVE (Negative)
[2021-11-27 00:21] LABS: Lactoferrin, Fecal, Quant. 45.7 mcg/mL
== END 2021-11-23 14:37 | disposition home or self-care (01) ==
LOC: HO.LNP 14:36
PROVIDERS: Visit Provider Internal Medicine Gastroenterology
DX: K52.9 Noninfective gastroenteritis and colitis, unspecified (principal)
CPT/HCPCS: 83631; 87493

== ENCOUNTER 2021-11-30 13:19 | Outpatient (REF) | payer OTHER, SELFPAY ==
[2021-11-30 13:58] LABS: INTERNATIONAL NORM RATIO 1.3 (0.9-1.1); Prothrombin Time 15.1 SEC (9.9-13.0)
[2021-11-30 14:41] LABS: Alanine Aminotransferase 45 U/L (0-40); Albumin Level 2.3 g/dL (3.5-5.0); Alkaline Phosphatase 280 U/L (39-117); Anion Gap 10 (12-20); Aspartate Amino Transferase 73 U/L (5-37); Bilirubin Total 3.9 mg/dL (0.0-1.0); Blood Urea Nitrogen 15 mg/dL (9-16); Calcium 8.8 mg/dL (8.4-10.2); Carbon Dioxide 19 mmol/L (22-29); Chloride 108 mmol/L (96-108); Estimated Glomerular Filt Rate 55; Glucose Random 116 mg/dL (60-115); Potassium 4.4 mmol/L (3.3-5.1); Sodium 133 mmol/L (135-145); Total Protein 7.6 g/dL (6.5-8.0)
== END 2021-11-30 13:20 | disposition home or self-care (01) ==
LOC: HO.LABR 13:19
PROVIDERS: PCP Nurse Practitioner Family; Visit Provider Physician Assistant
DX: K83.01 Primary sclerosing cholangitis (principal); K70.31 Alcoholic cirrhosis of liver with ascites; Z76.82 Awaiting organ transplant status
CPT/HCPCS: 36415; 80053; 85610

== ENCOUNTER 2021-12-17 07:55 | Outpatient (REF) | payer OTHER, SELFPAY | END 2021-12-17 07:56 | disposition home or self-care (01) | LOC: HO.MDS 07:55 | PROVIDERS: PCP Nurse Practitioner Family; Visit Provider Internal Medicine Gastroenterology | DX: K51.90 Ulcerative colitis, unspecified, without complications (principal) | CPT/HCPCS: 96413; 96415; Q5103 ==

== ENCOUNTER 2021-12-30 07:42 | Outpatient (REF) | payer OTHER, SELFPAY ==
[2021-12-30 09:17] LABS: Hematocrit 29.7 % (42.0-52.0); Hemoglobin 10.4 g/dl (14.0-18.0); Mean Corpuscular Hemoglobin 34.6 pg (27.0-33.0); Mean Corpuscular Volume 98.7 fL (80.0-98.0); Mean Platelet Volume 9.5 fL (9.4-12.4); Platelet Count 135 X10*3/uL (160-400); Red Blood Count 3.01 X10*6/uL (4.60-5.80); Red Cell Distribution Width 17.6 % (11.0-16.0); White Blood Count 17.4 X10*3/uL (4.8-10.8)
[2021-12-30 09:23] LABS: INTERNATIONAL NORM RATIO 1.7 (0.9-1.1); Prothrombin Time 19.9 SEC (9.9-13.0)
[2021-12-30 09:43] LABS: Band Neutrophils Percent 10 % (3-5); Lymphocytes Absolute Manual 0.3 X10*3/uL (1.2-4.9); Lymphocytes Percent Manual 2 % (20-40); Monocytes Absolute Manual 0.7 X10*3/uL (0.1-1.2); Monocytes Percent Manual 4 % (2-11); Neutrophils Absolute Manual 16.4 X10*3/uL (2.0-8.3); Neutrophils Percent Manual 84 % (45-73)
[2021-12-30 09:45] LABS: Macrocytosis 2+ (15-30) /OIF; RBC Morphology NOTED
[2021-12-30 09:46] LABS: Platelet Estimate SLIGHTLY DECREASED (NORMAL); Platelet Morphology Comment NORMAL; Toxic Vacuolation PRESENT
[2021-12-30 09:53] LABS: Alanine Aminotransferase 68 U/L (0-40); Albumin Level 1.8 g/dL (3.5-5.0); Alkaline Phosphatase 193 U/L (39-117); Anion Gap 14 (12-20); Aspartate Amino Transferase 101 U/L (5-37); Bilirubin Total 7.5 mg/dL (0.0-1.0); Blood Urea Nitrogen 37 mg/dL (9-16); C Reactive Protein 21.19 mg/dL (< or = 0.50); Calcium 7.8 mg/dL (8.4-10.2); Carbon Dioxide 20 mmol/L (22-29); Chloride 97 mmol/L (96-108); Estimated Glomerular Filt Rate 28; Glucose Random 126 mg/dL (60-115); Potassium 4.5 mmol/L (3.3-5.1); Sodium 126 mmol/L (135-145); Total Protein 6.8 g/dL (6.5-8.0)
== END 2021-12-30 07:43 | disposition home or self-care (01) ==
LOC: HO.LAB 07:42
PROVIDERS: Internal Medicine Gastroenterology; PCP Nurse Practitioner Family; Visit Provider Physician Assistant
DX: K51.90 Ulcerative colitis, unspecified, without complications (principal); K75.81 Nonalcoholic steatohepatitis (NASH); K83.01 Primary sclerosing cholangitis; K70.31 Alcoholic cirrhosis of liver with ascites; Z76.82 Awaiting organ transplant status
CPT/HCPCS: 36415; 80053; 85007; 85025; 85027; 85610; 86140

== ENCOUNTER 2021-12-30 10:06 | Inpatient (IN) | payer OTHER, SELFPAY ==
--- NOTE | ~2021-12-30 | US_ITS ---
EXAMINATION: ULTRASOUND-GUIDED PARACENTESIS CLINICAL INFORMATION: Question SBP COMPARISON: June 22, 2021 TECHNIQUE: Ultrasound-guided paracentesis FINDINGS: Informed consent was obtained from the patient prior to the procedure. During this process, the procedure and potential alternatives were explained, along with the intended outcome and benefits. The risks of the procedure, as well as the risk of not doing the procedure, were discussed. The patient was given the opportunity to ask questions regarding the procedure and appeared competent to make medical decisions. A signed consent form which documents this discussion was placed in the medical record. Scanning demonstrates a small pocket of fluid within the right mid abdomen. Using sterile technique and ultrasound guidance a 5 Malagasy Yueh needle was directed into the small pocket of fluid and sample obtained for laboratory studies. A total of 250 mL of clear yellow fluid was then drained. Patient tolerated procedure without difficulty. US/US paracentesis abd w/image IMPRESSION: Ultrasound-guided paracentesis with removal of 250 mL of clear yellow fluid.
--- NOTE | ~2021-12-30 | MR_ITS ---
EXAMINATION: MR ABDOMEN WITHOUT CONTRAST, MRCP CLINICAL INFORMATION: Rule out biliary obstruction. COMPARISON: CT abdomen/pelvis dated from 06/04/2021 and MR of the abdomen dated from 12/09/2020 TECHNIQUE: MR abdomen is performed without gadolinium contrast. 3-D MRCP images were also obtained. FINDINGS: LUNG BASES: Trace amount of bilateral pleural fluid. LIVER, GALLBLADDER, AND BILIARY TREE: Redemonstration of a cirrhotic liver with significant nodularity and heterogeneity of the parenchyma. The degree of intermediate T2 heterogeneity is increased since 12/09/2020. There is mild intrahepatic biliary ductal dilatation, not significantly changed. There is no extrahepatic biliary ductal dilatation. Stable appearance of the gallbladder which is distended and demonstrates several folds. There is also a small gallstone. There is no associated wall thickening and a small volume of pericholecystic fluid is indeterminate in the setting of ascites. PANCREAS: Suboptimal evaluation due to motion. No definite abnormalities are identified. SPLEEN: Normal size. No focal lesions. ADRENAL GLANDS: Unremarkable. KIDNEYS AND URETERS: The kidneys are normal in size and shape. There is a 1.6 cm T2 bright cyst in the lower pole of the left kidney and a 0.5 cm T2 bright cyst in the midpole of the right kidney. No hydronephrosis. No perinephric stranding. GASTROINTESTINAL TRACT: Somewhat ahaustral appearance of the transverse and descending colon, likely sequela of known ulcerative colitis. No obstruction. ABDOMINAL WALL: Anasarca and small volume of ascites. LYMPH NODES: Periportal and retroperitoneal lymphadenopathy is limitedly assessed due to motion. VASCULAR: Normal diameter of the abdominal aorta. OSSEOUS STRUCTURES: No acute or aggressive appearing osseous lesions. MR/MR MRCP IMPRESSION: Evaluation is significantly limited due to motion. 3-D MRCP images are essentially nondiagnostic. Accounting for these limitations, there is no significant biliary ductal dilatation. Cirrhotic liver morphology with ascites and indeterminate periportal and retroperitoneal lymphadenopathy. There is increased heterogeneity of the liver parenchyma on T2 images which could be better assessed with a dynamic CT or MR of the abdomen. Evaluation of HCC or focal liver lesions is suboptimal due to motion and the absence of intravenous contrast. Stable appearance of the gallbladder with cholelithiasis. Sequela of ulcerative colitis with an ahaustral colon which is only partially imaged.
--- NOTE | ~2021-12-30 | XR_ITS ---
EXAMINATION: XR CHEST CLINICAL INFORMATION: Leukocytosis COMPARISON: Chest 08/06/2021 TECHNIQUE: Frontal view of the chest was obtained. FINDINGS: The lungs are hypoexpanded and clear. The heart size and pulmonary vascularity is normal. No gross bony abnormality seen. XR/XR chest 1V IMPRESSION: Hypoexpanded lungs with no acute process seen.
[2021-12-30 10:20] VITALS: BP 101/62; PULSE 98; RESP 18; TEMP 37; O2SAT 98; BMI 39.2
[2021-12-30 10:59] VITALS: BP 98/54; PULSE 88; RESP 14; O2SAT 99
--- NOTE | 2021-12-30 11:11 | ED_ITS ---
HPI - General Adult General Chief complaint: Abdominal Pain Stated complaint: abnormal labs Time Seen by Provider: 12/30/21 10:24 Related Data Home Medications Medication Instructions Recorded Confirmed vedolizumab 300 mg intravenous 300 mg IV Q8W 06/04/21 12/30/21 solution (Entyvio) lactulose 10 gram/15 mL oral 45 ml PO TID 12/24/21 12/30/21 solution propranolol 10 mg tablet 10 mg PO BID 12/24/21 12/30/21 aspirin 81 mg chewable tablet 81 mg PO DAILY 12/30/21 12/30/21 spironolactone 50 mg tablet 50 mg PO DAILY 12/30/21 12/30/21 Previous Rx's Medication Instructions Recorded omeprazole 20 mg capsule,delayed 20 mg PO QAM #60 cap 04/13/21 release rifaximin 550 mg tablet (Xifaxan) 550 mg PO BID 30 Days #60 tab 04/13/21 calcium carbonate 500 mg calcium 500 mg PO BID 30 Days #60 tab 09/03/21 (1,250 mg) tablet (Oyster Shell Calcium) Lialda 1.2 gram tablet,delayed 4.8 g PO DAILY #120 tab NS 10/27/21 release (mesalamine) ferrous sulfate 325 mg (65 mg 325 mg PO TID #90 tab 10/27/21 iron) tablet (FeroSul) budesonide 3 mg 9 mg PO DAILY #90 ea 12/01/21 capsule,delayed,extended release naltrexone 50 mg tablet 50 mg PO DAILY #30 tab 12/01/21 Allergies Allergy/AdvReac Type Severity Reaction Status Date / Time No Known Allergies Allergy Verified 12/10/21 13:14 [No Known Allergies*] [facility] Past Medical History 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 Ulcerative colitis Surgical History History of esophagogastroduodenoscopy (EGD) Hx of colonoscopy Family History Family History Sister History of liver cancer Social History Social History Household Members: Spouse Household Members Other:: 2 Housing: House Do you presently have visiting nurse or other home services: No Alcohol intake: current Alcohol intake frequency: does not drink Advance Directives: Yes Advance Directives Information Provided: No Advance Directives on File: No service: No Current occupational status: unemployed Physical Exam Vital Signs: Vital Signs: Last Vital Signs Temp 98.6 F 12/30/21 10:20 Pulse 84 12/30/21 14:58 Resp 20 12/30/21 14:58 BP 102/58 L 12/30/21 14:58 Pulse Ox 98 12/30/21 14:58 BMI result Body Mass Index 39.2 Const: Other: Appearance: Alert. Oriented X3. No acute distress. Eyes: Pupils equal, round and reactive to light. Icteric sclera ENT: Pharynx normal. Neck: Normal inspection. Neck supple. No lymph nodes noted. No crepitus CVS: Normal heart rate and rhythm. Pulses normal. Normal S1 and S2 Respiratory: No respiratory distress. Breath sounds normal. No Wheezing. No rales Abdomen: Soft and nontender. Moderately distended, no fluid wave Skin: Skin warm and dry. Normal skin color. Normal skin turgor. Extremities: No lower extremity edema. No Lacerations. No Rash Neuro: Oriented X 3. No motor deficit. No sensory deficit. Moving all extermities. No slurred speech. Course Course Course Narrative: Discussed the patient with nasrin Peralta, after the ultrasound is done, patient will be admitted. Patient is getting prophylactically Zosyn. At this time, patient has no abdominal pain, is doing well otherwise. Patient has hyponatremia, acute kidney injury. Patient receiving IV fluids. At this time sepsis not suspected. Patient is waiting to have the ultrasound done to rule out SBP. Patient has already been treated with IV antibiotics. 16:00 I discussed the patient with Dr. Plummer, patient will be admitted once the lab results of the peritoneal fluid are back. At this time, patient remains stable. 16:15 interventional Radiology was able to remove 250 mL during paracentesis. Labs are pending Patient will be admitted once the results are pending. Sign-out given to Dr. Mederos C diff has been ordered but patient has not had any bowel movements. At this time, there is no clear source of infection, the only thing that is pending is the paracentesis labs. Dr. Plummer will admit the patient. Patient will likely need an MRCP per Dr. Peralta's request to r/o biliary obstruction Medical Decision Making Lab Data Labs: Lab Results 12/30/21 12/30/21 12/30/21 Range/Units 11:08 14:52 14:52 Lactic Acid 2.2 H* (0.5-2.0) mmol/L Lactate Dehydrogenase 236 (118-273) U/L COVID-19 (ADELA) Negative (Negative) COVID-19 Clin Com See Note Imaging Data Chest x-ray: Radiologist's impression: The lungs are hypoexpanded and clear. The heart size and pulmonary vascularity is normal. No gross bony abnormality seen. XR/XR chest 1V IMPRESSION: Hypoexpanded lungs with no acute process seen. Discharge Plan Discharge Clinical Impression: Acute renal injury, Acute hyponatremia, Elevated LFTs Patient Disposition: Admitted As Inpatient
[2021-12-30 11:36] LABS: COVID-19 Test Negative (Negative); IDNOW Serial# 9DD0AD1C
--- NOTE | 2021-12-30 12:57 | P.CNGI_ITS ---
History of Present Illness Data of Consult Service Date: 12/30/21 Requesting physician: Ema Cha Primary Care Provider: Manpreet Avila, [facility] HPI Reason for consult: malaise, worsening LFT 56-year-old male with past medical history of alcoholic liver cirrhosis, hepatic encephalopathy, coagulopathy, UC (on entyvio) and PSC who I am calling for assessment for abn LFt and malaise. Patient said that he had his covid booster about 2 weeks ago and since then not really felt right and noted increased malaise, weakness and poor apppetite. He also felt his abdomen is distended, denies fevers or chills but he noted worsening jaundice. No nausea or vomiting, no cough os sputum, and no urine sx. He did notice increased diarrhea recently, but no blood in stool. No confusion, not drinking alcohol (stopped 09/2020) or smoking. Labs with worsening bili above baseline, WCC elevated to 17 and CRP 21. HE is also seeing [facility] for liver transplant evaluation. Prior testing: MRCP 12/2020--PSc, cirrhosis, no liver masses, or lesions EGD 07/2020--varices Review of Systems Review of Systems: Constitutional : No Weight loss, No Fever, No Chills ENT/Mouth : No sore throat, No Rhinorrhea Eyes: No Swelling, No Redness Cardiovascular : No Chest Pain, No SOB, No Edema Respiratory : No Cough, No Sputum, No Wheezing Gastrointestinal : see HPI Genitourinary : NO Dysuria, No Urinary Frequency, No Hematuria, No Urgency Musculoskeletal : No joint pain, No Myalgias, No Joint Swelling Skin : No Skin Lesions, No rash Neuro : + Weakness, No Numbness, No Dizziness, No Headache Psych : No Anxiety/Panic, No Depression Heme/Lymph: No Bruising, No Lymphadenopathy Endocrine : No Polyuria, No Polydipsia All other systems reviewed and are negative. 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 Ulcerative colitis Family History Family History Sister History of liver cancer Surgical History Surgical History History of esophagogastroduodenoscopy (EGD) Hx of colonoscopy Social History Social History Household Members: Spouse Household Members Other:: 2 Housing: House Do you presently have visiting nurse or other home services: No Alcohol intake: current Alcohol intake frequency: does not drink Advance Directives: Yes Advance Directives Information Provided: No Advance Directives on File: No service: No Current occupational status: unemployed Meds Allergies Allergy/AdvReac Type Severity Reaction Status Date / Time No Known Allergies Allergy Verified 12/10/21 13:14 [No Known Allergies*] Active Medications: Current Medications Pharmacy Consult (Consult Rx Perform Med Rec) 1 each MISCELLANE ONCE PRN PRN Reason: Consult order Home Medications Medication Instructions Recorded Confirmed Last Taken Type vedolizumab 300 mg intravenous 300 mg IV Q8W 06/04/21 12/30/21 Unknown History solution (Entyvio) lactulose 10 gram/15 mL oral 45 ml PO TID 12/24/21 12/30/21 Unknown History solution propranolol 10 mg tablet 10 mg PO BID 12/24/21 12/30/21 Unknown History aspirin 81 mg chewable tablet 81 mg PO DAILY 12/30/21 12/30/21 Unknown History spironolactone 50 mg tablet 50 mg PO DAILY 12/30/21 12/30/21 Unknown History Physical Exam Vital Signs: Vital Signs: Last Vital Signs Temp 98.6 F 12/30/21 10:20 Pulse 88 12/30/21 10:59 Resp 14 12/30/21 10:59 BP 98/54 L 12/30/21 10:59 Pulse Ox 99 12/30/21 10:59 BMI result Body Mass Index 39.2 EXAM: GENERAL: The patient is well developed and nontoxic. VITAL SIGNS:see workflow HEENT: icteric sclerae, PERRLA, EOMI. Oropharynx clear. Moist mucous membranes. Conjunctivae appear well perfused. No thyroid mass. CHEST: Chest wall is nontender. HEART: Regular rate and rhythm without murmurs. LUNGS: Clear to auscultation bilaterally. ABDOMEN: Soft, positive bowel sounds, nontender, no organomegaly.no flank ten derness, slightly distended SKIN: No rash, no excessive bruising, petechiae, or purpura. NEUROLOGIC: Cranial nerves II-XII intact without motor/sensory deficit. Psych--nml MS: nml ROM Assessment and Plan (1) PSC (primary sclerosing cholangitis): Status: Acute (2) Ulcerative colitis: Status: Acute Plan 1/ Worsening WCC< CRP and malaise, maybe consistent with sepsis, may also explain worsening bili, ddx: infectious or obstructive cholangitis, c diff, other infectious diarrhea (josemanuel in setting of entyvio), UC flare, SBP 2/ Low sodium likely from diuretics and cirrhosis PLAN: 1/ Urine and blood cultures 2/ tap if ascites if possible and send for diagnostics to r/o SBP 3/ CXR 4/ MRCP with contrast to r/o biliary obstruction 5/ check c diff, stool c/s 6/ check hep A, E serologies, EBV, HSV, CMV 7/ ok to give zosyn for the meantime 8/may need ERCP depending on above 9/ trend Na, check osmolalities of urine and serum, cortisol level, hold diuretics, Procedures Date of Service Date of Service: 12/30/21
--- NOTE | 2021-12-30 13:57 | PHA.MEDREC ---
Pharmacy Consult ? Medication Reconciliation Pharmacy has completed the medication reconciliation. Patient had picture on his phone of his medication that he allegedly took the other day for another doctor. The photo had old vial but still had medication in them. Patient report taking rifaximin and lactulose however [facility] pharmacy reports it is no longer active. Patient has active prescriptions for Furosemide 20 mg QAM however he reports not taking it along with hydroxyzine 25 mg at bedtime PRN. He report ursodiol was stopped and that it may be causing the liver issues. Karen Church, PharmD
--- NOTE | 2021-12-30 14:19 | PC.NURSE ---
awaiting blood cultures, pt is difficult stick.
[2021-12-30 14:58] VITALS: BP 102/58; PULSE 84; RESP 20; O2SAT 98
[2021-12-30] MEDS: Piperacillin Sodium/Tazobactam 3.375 GM in 0.9 % Sodium Chloride 50 ML IV (15:02)
[2021-12-30 15:20] LABS: Lactate Dehydrogenase 236 U/L (118-273)
[2021-12-30 15:53] LABS: Lactic Acid 2.2 mmol/L (0.5-2.0)
[2021-12-30] MEDS: Lidocaine HCl 1 % MPF 5 ML VIAL SUBCUT (16:11)
--- NOTE | 2021-12-30 16:17 | PC.NURSE ---
Ultrasound department reported 250 mL removed from right side of abdomen with paracentesis.
[2021-12-30] MEDS: 0.9 % Sodium Chloride 1,000 ML 999 ML IVCONT (16:47)
[2021-12-30 17:01] LABS: Reflex Lactate? Lactic Acid Added
[2021-12-30 17:05] LABS: RBC Peritoneal Fluid 0.002 X10*6/uL; WBC Peritoneal Fluid 1.834 X10*3/uL
[2021-12-30 17:08] LABS: BF Shift QC OK YES; Lymphocyte Peritoneal Fl 1 %; Man Diluent Bkgrd OK YES; Monocytes Peritoneal Fl 21 %; Neutrophils Peritoneal Fluid 75 %; Other Peritioneal Fl 3 %
[2021-12-30 17:09] LABS: MN% 22.5 %; PMN% 77.5 %
[2021-12-30 17:59] VITALS: BP 98/62; PULSE 87; RESP 18; TEMP 36.7; O2SAT 100
--- NOTE | 2021-12-30 18:06 | P.HPHOSP_ITS ---
History of Present Illness Date of Service: 12/30/21 Chief Complaint: Weakness, jaundice, abdominal distension 56-year-old male with past medical history of alcoholic liver cirrhosis, hepatic encephalopathy, coagulopathy, UC (on entyvio) and PSC who presented to the emergency as a referral from GI office for 2 weeks of increased weakness, decreased appetite, jaundice and abdominal distension. The patient reported that 2 weeks ago he took the COVID vaccine and started to feel down since then. He did notice increased diarrhea recently, but no blood in stool. Reported his mind has been clear with no reported confusion denies drinking any alcohol. In the emergency he was found to elevated WBCs. Started on prophylaxis Zosyn by Gastroenterology. Sent for paracentesis which did not show any evidence of SBP interventional Radiology was able to remove 250 mL during paracentesis C diff has been ordered but patient has not had any bowel movements. Admitted for further evaluation and treatment. 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 If so, by whom?: No Do you feel safe in your current relationship?: Yes Is there a partner from a previous relationship who is making you feel unsafe now?: No Are you made to feel afraid or neglected: No Advance Directives: Yes Advance Directives Information Provided: No Advance Directives on File: No Advance Directives Date on File: 12/31/21 Do you have thoughts of harming others: None Do you have a plan to hurt others: No Plan Recently lost weight without trying: No Nutrition Risks: Poor intake 0-25% >4 days service: No Current occupational status: disabled Meds Allergies Allergy/AdvReac Type Severity Reaction Status Date / Time No Known Allergies Allergy Verified 12/10/21 13:14 [No Known Allergies*] Active Medications: Current Medications Aspirin (Aspirin 81 Mg Tab.Chew) 81 mg PO DAILY [facility] Calcium Carbonate (Calcium Carbonate 500 Mg Tablet) 500 mg PO BID [facility] Lactulose (Lactulose 20 Gm/30 Ml Solution) 30 gm PO TID [facility] Naltrexone HCl (Naltrexone Hcl 50 Mg Tablet) 50 mg PO DAILY [facility] Omeprazole (Omeprazole 20 Mg Capsule.) 20 mg PO QAM [facility] Pharmacy Consult (Consult Rx Perform Med Rec) 1 each MISCELLANE ONCE PRN PRN Reason: Consult order Propranolol HCl (Propranolol Hcl 10 Mg Tablet) 10 mg PO BID [facility]; Protocol Spironolactone (Spironolactone 25 Mg Tablet) 50 mg PO DAILY [facility]; Protocol Home Medications Medication Instructions Recorded Confirmed Last Taken Type vedolizumab 300 mg intravenous 300 mg IV Q8W 06/04/21 12/30/21 Unknown History solution (Entyvio) lactulose 10 gram/15 mL oral 45 ml PO TID 12/24/21 12/30/21 Unknown History solution propranolol 10 mg tablet 10 mg PO BID 12/24/21 12/30/21 Unknown History aspirin 81 mg chewable tablet 81 mg PO DAILY 12/30/21 12/30/21 Unknown History spironolactone 50 mg tablet 50 mg PO DAILY 12/30/21 12/30/21 Unknown History Physical Exam Vital Signs and Narrative: Vital Signs: Last Vital Signs Temp 98.0 F 12/30/21 17:59 Pulse 87 12/30/21 17:59 Resp 18 12/30/21 17:59 BP 98/62 12/30/21 17:59 Pulse Ox 100 12/30/21 17:59 BMI result Body Mass Index 39.2 Const: Other: Constitutional : Alert, oriented, in mild emotional distress Neck : Normal inspection, Supple Cardiovascular : RRR, S1 S2, no lower extremity edema Respiratory : Fair bilateral air entry, no crackles, wheezes or rhonchi Gastrointestinal: soft, lax, Normal bowel sounds, Non tender, mildly distended with mild amount of ascites Skin : Warm, Dry Neurological : Alert & oriented x3, No focal deficit Results Labs CBC and Chem 7: 12/31/21 08:29 12/31/21 08:29 Labs: Laboratory Results - last 24 hr 12/30/21 12/30/21 12/30/21 11:08 14:52 14:52 Lactic Acid 2.2 H* Lactate Dehydrogenase 236 Peritoneal WBC Peritoneal RBC Periton Neutrophils Periton Lymphocytes Peritoneal Monocytes Peritoneal Other Cells COVID-19 (ADELA) Negative COVID-19 Clin Com See Note 12/30/21 16:05 Lactic Acid Lactate Dehydrogenase Peritoneal WBC 1.834 Peritoneal RBC 0.002 Periton Neutrophils 75 Periton Lymphocytes 1 Peritoneal Monocytes 21 Peritoneal Other Cells 3 COVID-19 (ADELA) COVID-19 Clin Com Imaging Radiologist's Impressions: Impressions Chest X-Ray 12/30/21 11:05 IMPRESSION: Hypoexpanded lungs with no acute process seen. Paracentesis Ultrasound 12/30/21 16:12 IMPRESSION: Ultrasound-guided paracentesis with removal of 250 mL of clear yellow fluid. Assessment and Plan (1) Acute renal injury: Status: Acute (2) Acute hyponatremia: Status: Acute (3) Elevated LFTs: Status: Acute (4) SBP (spontaneous bacterial peritonitis): Status: Acute Plan 56-year-old male with past medical history of alcoholic liver cirrhosis, hepatic encephalopathy, coagulopathy, UC (on entyvio) and PSC who presented to the emergency as a referral from GI office for 2 weeks of increased weakness, decreased appetite, jaundice and abdominal distension. Sepsis 2/2 SBP associated lactic acidosis Pending blood cultures Negative CXR, pending C diff pleural fluid evaluation showing Neutrophiles >1000 Cover with Zosyn per GI recommendations Transaminitis Could be secondary to PBS, MRCP with contrast to r/o biliary obstruction check hep A, EBV, HSV, CMV Hep E test not available may need ERCP depending on above Lactic acidosis Multifactorial not secondary to severe sepsis including liver disease, infextion and hypotension Acute kidney injury Could be secondary to dehydration, hepatorenal syndrome To do gentle hydration To give albumin Monitor intake and output Get Nephrology evaluation Hyponatremia Sodium of 126 Secondary to cirrhosis, Kyaw I and decreased oral intake Gentle hydration and monitor BMP History of liver cirrhosis Continue lactulose, naltrexone and rifaximin continue spironolactone and propranolol DVT PPX Heparin Quality Stroke Does the patient have a stroke diagnosis?: No VTE Prior VTE?: No VTE Risk Level:: Medical - moderate - high VTE Device Contraindication: Treatment Not Indicated VTE Drug Contraindication: N/A - Med Ordered
--- NOTE | 2021-12-30 18:29 | PC.NURSE ---
PT transferred to MRI. Meds will be held until PT returns from procedure.
[2021-12-30 18:30] LABS: Appearance Urine CLEAR; Color Urine ORANGE; Glucose Urine UA NEG (NEG); Leukocyte Esterase Urine NEG (NEG); Nitrite Urine NEG (NEG); PH 5.5 (5.0-8.0); Specific Gravity - Urine >= 1.030 (1.005-1.025); Urine Blood NEG (NEG); Urine Ketones NEG (NEG); Urine Protein TRACE MG/DL (NEG-TRACE)
[2021-12-30 19:40] LABS: CDiff Gene PCR NEGATIVE (Negative)
[2021-12-30 20:20] LABS: ~Lactic Acid-LAB USE ONLY 2.7 mmol/L (0.5-2.0)
--- NOTE | 2021-12-30 20:23 | PC.NURSE ---
Report to MILAGRO Hernandez of elevated lactic acid of 2.7 .
[2021-12-30] MEDS: Piperacillin Sodium/Tazobactam 2.25 GM in 0.9 % Sodium Chloride 50 ML IV (21:00)
[2021-12-30] MEDS: 0.9 % Sodium Chloride 1,000 ML 75 ML IVCONT (21:15)
[2021-12-30] MEDS: Albumin Human 25 % 100 ML IV (21:16)
[2021-12-30] MEDS: Heparin Sodium,Porcine 5,000 UNIT/ML VIAL 5000 UNIT SUBCUT (21:17)
[2021-12-30] MEDS: Lactulose 20 GM/30 ML SOLUTION 30 GM PO (21:17)
[2021-12-30] MEDS: rifAXIMin 550 MG TABLET PO (21:18)
[2021-12-30] MEDS: Omeprazole 20 MG CAPSULE.DR PO (21:19)
[2021-12-30 22:00] LABS: Reflex Lactate? 2 Y
[2021-12-30 22:38] LABS: ~Lactic Acid-LAB USE ONLY 2.4 mmol/L (0.5-2.0)
--- NOTE | 2021-12-30 22:57 | PC.NURSE ---
Patient's medications were given over 2 hours later due to patient being in MRI, hospitalist made aware and per hospitalist she would like all medication given
[2021-12-30 23:46] VITALS: BP 92/39; PULSE 113; RESP 20; O2SAT 98
[2021-12-31] VITALS (8 sets, daily range): BP systolic 89–102; BP diastolic 44–61; PULSE 67–99; RESP 15–20; TEMP 36.2–36.7; O2SAT 96–100; BMI 38.9
[2021-12-31] MEDS: Albumin Human 25 % 100 ML IV ×3 (02:00→13:46)
--- NOTE | 2021-12-31 03:00 | PC.NURSE ---
Hospitalist notified that patient had not yet received his 2nd dose of albumin due to patient being in the bathroom from lactulose administration. Patient's blood pressure was also soft as systolic of 89/56. She ordered 500 ml of lactated ringers to be administered.
[2021-12-31] MEDS: Lactated Ringers 500 ML IV (03:17)
[2021-12-31] MEDS: Piperacillin Sodium/Tazobactam 2.25 GM in 0.9 % Sodium Chloride 50 ML IV ×2 (03:51→08:06)
[2021-12-31] MEDS: Omeprazole 20 MG CAPSULE.DR PO (05:59)
[2021-12-31] MEDS: 0.9 % Sodium Chloride 1,000 ML 75 ML IVCONT (07:22)
[2021-12-31 07:26] LABS: Total Protein Peritoneal Fluid 0.8
[2021-12-31 07:28] LABS: LDH Peritoneal Fluid 100
[2021-12-31 07:29] LABS: Glucose Peritoneal Fluid 143
[2021-12-31] MEDS: Naltrexone HCl 50 MG TABLET PO (07:38)
[2021-12-31] MEDS: Propranolol HCL 10 MG TABLET PO (07:38)
[2021-12-31] MEDS: rifAXIMin 550 MG TABLET PO ×2 (07:38→21:07)
[2021-12-31] MEDS: Spironolactone 25 MG TABLET 50 MG PO (07:39)
[2021-12-31] MEDS: Heparin Sodium,Porcine 5,000 UNIT/ML VIAL 5000 UNIT SUBCUT ×2 (07:40→17:48)
[2021-12-31] MEDS: Aspirin 81 MG TAB.CHEW PO (07:40)
[2021-12-31] MEDS: 0.9 % Sodium Chloride Flush 3 ML SYRINGE IVFLUSH ×2 (07:40→17:48)
[2021-12-31 08:44] LABS: Hematocrit 24.8 % (42.0-52.0); Hemoglobin 8.6 g/dl (14.0-18.0); Mean Corpuscular HGB Conc 34.7 g/dl (31.0-36.0); Mean Corpuscular Hemoglobin 34.1 pg (27.0-33.0); Mean Corpuscular Volume 98.4 fL (80.0-98.0); Mean Platelet Volume 9.5 fL (9.4-12.4); Platelet Count 119 X10*3/uL (160-400); Red Blood Count 2.52 X10*6/uL (4.60-5.80); Red Cell Distribution Width 17.5 % (11.0-16.0)
--- NOTE | 2021-12-31 08:52 | MHC.CM.PN ---
CM met with Patient at bedside. Patient lives in a house with his and he is functionally independent, requiring no previous services nor DME. Patient's goal is to return home and CM has initiated and will follow for dc planning. PCP is DR. Manpreet Avila and Patient has received [employer] vax X3.
[2021-12-31 09:06] LABS: Alanine Aminotransferase 47 U/L (0-40); Albumin Level 2.2 g/dL (3.5-5.0); Alkaline Phosphatase 144 U/L (39-117); Anion Gap 10 (12-20); Aspartate Amino Transferase 75 U/L (5-37); Bilirubin Direct 5.1 mg/dL (0.0-0.5); Bilirubin Total 6.2 mg/dL (0.0-1.0); Blood Urea Nitrogen 37 mg/dL (9-16); Calcium 7.8 mg/dL (8.4-10.2); Carbon Dioxide 21 mmol/L (22-29); Chloride 103 mmol/L (96-108); Creatinine Clr Calc Pharmacy 56.4; Estimated Glomerular Filt Rate 37; Glucose Random 107 mg/dL (60-115); Potassium 4.2 mmol/L (3.3-5.1); Sodium 130 mmol/L (135-145)
[2021-12-31 09:07] LABS: Hepatitis A Antibody IgM 0.21 Index (0-0.79); ~Hepatitis A Antibody IgM Nonreactive (Nonreactive)
[2021-12-31] MEDS: cefTRIAXone sodium 1 GM in 0.9 % Sodium Chloride 50 ML IV (10:08)
--- NOTE | 2021-12-31 12:58 | P.PNIM_ITS ---
Subjective Subjective Date of Service: 12/31/21 Interval History: the patient was seen and evaluated this morning Laying in bed, feels a mild improvement since yesterday Liver enzymes and kidney function mildly better today Denies any fever, chills or abdominal pain No reported other overnight events. Review of Systems No fever, chills but decreased appetite and increased generalized weakness No chest pain, palpitation No shortness of breath or coughing No abdominal pain, but reported episodes of diarrhea and more abdominal dist ension No urinary symptoms No any rash or wounds Physical Exam Vital Signs: Vital Signs: Last Vital Signs Temp 97.8 F 12/31/21 11:16 Pulse 67 12/31/21 11:16 Resp 18 12/31/21 11:16 BP 90/48 L 12/31/21 11:16 Pulse Ox 96 12/31/21 11:16 BMI result Body Mass Index 38.9 Const: Other: Constitutional : Alert, oriented, not in distress Neck : Normal inspection, Supple Cardiovascular : RRR, S1 S2, no lower extremity edema Respiratory : Fair bilateral air entry, no crackles, wheezes or rhonchi Gastrointestinal: soft, lax, Normal bowel sounds, Non tender, mildly distended with mild amount of ascites Skin : Warm, Dry Neurological : Alert & oriented x3, No focal deficit Objective Data Active Medications Aspirin (Aspirin 81 Mg Tab.Chew) 81 mg PO DAILY [facility] Last Admin: 12/31/21 07:40 Dose: 81 mg Documented by: MARY ELLEN Calcium Carbonate (Calcium Carbonate 500 Mg Tablet) 500 mg PO BID [facility] Last Admin: 12/31/21 07:40 Dose: 500 mg Documented by: MARY ELLEN Heparin Sodium (Porcine) (Heparin Sodium,Porcine 5,000 Unit/Ml Vial) 5,000 unit SUBCUT Q12H [facility] Last Admin: 12/31/21 07:40 Dose: 5,000 unit Documented by: MARY ELLEN Albumin Human (Kedbumin 25 %) 100 mls @ 100 mls/hr IV Q6H [facility] Stop: 12/31/21 12:59 Last Infusion: 12/31/21 07:00 Dose: 0 mls/hr Documented by: MARY ELLEN Ceftriaxone Sodium 1 gm/ (Sodium Chloride) 50 mls @ 100 mls/hr IV Q24H [facility] Last Infusion: 12/31/21 10:42 Dose: 0 mls/hr Documented by: MARY ELLEN Lactulose (Lactulose 20 Gm/30 Ml Solution) 30 gm PO TID [facility] Last Admin: 12/31/21 08:10 Dose: Not Given Documented by: MARY ELLEN Non-Admin Reason: Patient Refused Naltrexone HCl (Naltrexone Hcl 50 Mg Tablet) 50 mg PO DAILY [facility] Last Admin: 12/31/21 07:38 Dose: 50 mg Documented by: MARY ELLEN Omeprazole (Omeprazole 20 Mg Capsule.Dr) 20 mg PO DAILY@0630 [facility] Last Admin: 12/31/21 05:59 Dose: 20 mg Documented by: WHITLEY Ondansetron HCl (Ondansetron Hcl 4 Mg/2 Ml Vial) 4 mg IVPUSH Q8H PRN PRN Reason: Nausea and Vomiting Pharmacy Consult (Consult Rx Perform Med Rec) 1 each MISCELLANE ONCE PRN PRN Reason: Consult order Propranolol HCl (Propranolol Hcl 10 Mg Tablet) 10 mg PO BID [facility]; Protocol Last Admin: 12/31/21 07:38 Dose: 10 mg Documented by: MARY ELLEN Rifaximin (Rifaximin 550 Mg Tablet) 550 mg PO BID [facility] Last Admin: 12/31/21 07:38 Dose: 550 mg Documented by: MARY ELLEN Sodium Chloride (0.9 % Sodium Chloride Flush 3 Ml Syringe) 3 ml IVFLUSH QSHIFT [facility] Last Admin: 12/31/21 07:40 Dose: 3 ml Documented by: MARY ELLEN Spironolactone (Spironolactone 25 Mg Tablet) 50 mg PO DAILY [facility]; Protocol Last Admin: 12/31/21 07:39 Dose: 50 mg Documented by: MARY ELLEN Labs CBC & Chem 7: 12/31/21 08:29 12/31/21 08:29 Labs: Laboratory Results - last 24 hr 12/30/21 12/30/21 12/30/21 14:52 14:52 16:05 MCV MCH MCHC RDW Plt Count MPV Absolute Nucleated RBC Nucleated RBC % (auto) Anion Gap Estim Creat Clear Calc Estimated GFR Random Glucose Lactic Acid 2.2 H* Lactic Acid F/U @ 2Hr Lactic Acid F/U @ 4Hr Calcium Total Bilirubin Direct Bilirubin AST ALT Alkaline Phosphatase Lactate Dehydrogenase 236 Total Protein Albumin Urine Color Urine Appearance Urine pH Ur Specific Boody Urine Protein Urine Glucose (UA) Urine Ketones Urine Blood Urine Nitrite Ur Leukocyte Esterase Peritoneal WBC 1.834 Peritoneal RBC 0.002 Periton Neutrophils 75 Periton Lymphocytes 1 Peritoneal Monocytes 21 Peritoneal Other Cells 3 Peritoneal Tot Protein Peritoneal LDH Peritoneal Glucose C. difficile Tox B Gene Hepatitis A IgM Ab 12/30/21 12/30/21 12/30/21 16:05 18:22 18:22 MCV MCH MCHC RDW Plt Count MPV Absolute Nucleated RBC Nucleated RBC % (auto) Anion Gap Estim Creat Clear Calc Estimated GFR Random Glucose Lactic Acid Lactic Acid F/U @ 2Hr Lactic Acid F/U @ 4Hr Calcium Total Bilirubin Direct Bilirubin AST ALT Alkaline Phosphatase Lactate Dehydrogenase Total Protein Albumin Urine Color ORANGE A Urine Appearance CLEAR Urine pH 5.5 Ur Specific Boody >= 1.030 H Urine Protein TRACE Urine Glucose (UA) NEG Urine Ketones NEG Urine Blood NEG Urine Nitrite NEG Ur Leukocyte Esterase NEG Peritoneal WBC Peritoneal RBC Periton Neutrophils Periton Lymphocytes Peritoneal Monocytes Peritoneal Other Cells Peritoneal Tot Protein 0.8 Peritoneal LDH 100 Peritoneal Glucose 143 C. difficile Tox B Gene NEGATIVE Hepatitis A IgM Ab 12/30/21 12/30/21 12/30/21 19:47 19:47 22:16 MCV MCH MCHC RDW Plt Count MPV Absolute Nucleated RBC Nucleated RBC % (auto) Anion Gap Estim Creat Clear Calc Estimated GFR Random Glucose Lactic Acid Lactic Acid F/U @ 2Hr 2.7 H* Lactic Acid F/U @ 4Hr 2.4 H* Calcium Total Bilirubin Direct Bilirubin AST ALT Alkaline Phosphatase Lactate Dehydrogenase Total Protein Albumin Urine Color Urine Appearance Urine pH Ur Specific Boody Urine Protein Urine Glucose (UA) Urine Ketones Urine Blood Urine Nitrite Ur Leukocyte Esterase Peritoneal WBC Peritoneal RBC Periton Neutrophils Periton Lymphocytes Peritoneal Monocytes Peritoneal Other Cells Peritoneal Tot Protein Peritoneal LDH Peritoneal Glucose C. difficile Tox B Gene Hepatitis A IgM Ab Nonreactive 12/31/21 12/31/21 08:29 08:29 MCV 98.4 H MCH 34.1 H MCHC 34.7 RDW 17.5 H Plt Count 119 L MPV 9.5 Absolute Nucleated RBC 0.000 Nucleated RBC % (auto) 0.0 Anion Gap 10 L Estim Creat Clear Calc 56.4 Estimated GFR 37 Random Glucose 107 Lactic Acid Lactic Acid F/U @ 2Hr Lactic Acid F/U @ 4Hr Calcium 7.8 L Total Bilirubin 6.2 H Direct Bilirubin 5.1 H AST 75 H ALT 47 H Alkaline Phosphatase 144 H D Lactate Dehydrogenase Total Protein 6.0 L Albumin 2.2 L D Urine Color Urine Appearance Urine pH Ur Specific Boody Urine Protein Urine Glucose (UA) Urine Ketones Urine Blood Urine Nitrite Ur Leukocyte Esterase Peritoneal WBC Peritoneal RBC Periton Neutrophils Periton Lymphocytes Peritoneal Monocytes Peritoneal Other Cells Peritoneal Tot Protein Peritoneal LDH Peritoneal Glucose C. difficile Tox B Gene Hepatitis A IgM Ab Microbiology Microbiology Results: Microbiology 12/30/21 16:05 Gram Stain - Final Abdominal Fluid Routine Culture - Preliminary No growth to date. Anaerobic Culture - Preliminary No growth to date. 12/30/21 14:52 Blood Culture - Preliminary Blood - Venous Prelim: GNR Gram Stain only 12/30/21 14:52 Blood Culture - Preliminary Blood - Venous Prelim: GNR Gram Stain only Assessment and Plan (1) SBP (spontaneous bacterial peritonitis): Status: Acute (2) Acute renal injury: Status: Acute (3) Acute hyponatremia: Status: Acute (4) Elevated LFTs: Status: Acute Plan 56-year-old male with past medical history of alcoholic liver cirrhosis, hepatic encephalopathy, coagulopathy, UC (on entyvio) and PSC who presented to the emergency as a referral from GI office for 2 weeks of increased weakness, decreased appetite, jaundice and abdominal distension. Sepsis 2/2 bacteremia from SBP associated lactic acidosis Blood cultures growing GNR Negative CXR, negative C diff pleural fluid evaluation showing Neutrophiles >1000 Continue with ceftriaxone Transaminitis Could be secondary to PBS, MRCP done showing no evidence of biliary obstruction Pending hep A, EBV, HSV, CMV Hep E test not available GI to decide if ERCP needed Lactic acidosis Multifactorial not secondary to severe sepsis including liver disease, infextion and hypotension Acute kidney injury Improving Could be secondary to dehydration, hepatorenal syndrome Continue albumin Monitor intake and output Pending Nephrology evaluation Hyponatremia Sodium improved to 130 Secondary to cirrhosis, Ky[place] I and decreased oral intake monitor BMP History of liver cirrhosis Continue lactulose, naltrexone and rifaximin continue spironolactone and propranolol DVT PPX Heparin Quality Stroke Does the patient have a stroke diagnosis?: No VTE Prior VTE?: No VTE Risk Level:: Medical - moderate - high VTE Device Contraindication: Treatment Not Indicated VTE Drug Contraindication: N/A - Med Ordered
--- NOTE | 2021-12-31 17:04 | P.CONNP_ITS ---
History of Present Illness Reason for Consult Consult date: 12/31/21 Reason for consult: ALBERT Chief Complaint Chief complaint: Weakness Jaundice History of Present Illness Narrative: 56-year-old male with past medical history of alcoholic liver cirrhosis, hepatic encephalopathy, coagulopathy, UC (on entyvio) and PSC who presented to the emergency as a referral from GI office for 2 weeks of increased weakness, dec reased appetite, jaundice and abdominal distension.? The patient reported that 2 weeks ago he took the COVID vaccine and started to feel down since then. He did notice increased diarrhea recently, but no blood in stool.? Reported his mind has been clear with no reported confusion denies drinking any alcohol. In the emergency he was found to elevated WBCs.? Started on prophylaxis Zosyn by Gastroenterology.? Sent for paracentesis which did not show any evidence of SBP interventional Radiology was able to remove 250 mL during paracentesis Nephrology subsequently consulted for noted ALBERT suspected to be due to hypovolemia. ROS otherwise negative. Review of Systems Cardiovascular: Reports as per HPI Respiratory: Reports as per HPI Gastrointestinal: Reports as per HPI PMFSH Past Medical History 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 Ulcerative colitis Family History Family History Sister History of liver cancer Surgical History Surgical History History of esophagogastroduodenoscopy (EGD) Hx of colonoscopy Social History Social History Household Members: Spouse Household Members Other:: 2 Housing: House Do you presently have visiting nurse or other home services: No Alcohol intake: never Patient Tobacco Use Status: Never used Tobacco e-Cigarette/Vaping Use: Never Used Use of substances other than those prescribed or required for medical reasons: No Currently Displaying Signs/Symptoms of Drug Intoxication Withdrawal: No Have you been hit, kicked, punched, or otherwise hurt by someone within the past year? If so, by whom?: No Do you feel safe in your current relationship?: Yes Is there a partner from a previous relationship who is making you feel unsafe now?: No Are you made to feel afraid or neglected: No Advance Directives: Yes Advance Directives Information Provided: No Advance Directives on File: No Advance Directives Date on File: 12/31/21 Do you have thoughts of harming others: None Do you have a plan to hurt others: No Plan Recently lost weight without trying: No Nutrition Risks: Poor intake 0-25% >4 days service: No Current occupational status: disabled Meds Allergies Allergy/AdvReac Type Severity Reaction Status Date / Time No Known Allergies Allergy Verified 12/10/21 13:14 [No Known Allergies*] Active Medications: Current Medications Aspirin (Aspirin 81 Mg Tab.Chew) 81 mg PO DAILY [facility] Last Admin: 12/31/21 07:40 Dose: 81 mg Documented by: Calcium Carbonate (Calcium Carbonate 500 Mg Tablet) 500 mg PO BID [facility] Last Admin: 12/31/21 07:40 Dose: 500 mg Documented by: Heparin Sodium (Porcine) (Heparin Sodium,Porcine 5,000 Unit/Ml Vial) 5,000 unit SUBCUT Q12H [facility] Last Admin: 12/31/21 07:40 Dose: 5,000 unit Documented by: Ceftriaxone Sodium 1 gm/ (Sodium Chloride) 50 mls @ 100 mls/hr IV Q24H [facility] Last Infusion: 12/31/21 10:42 Dose: Infused Documented by: Lactulose (Lactulose 20 Gm/30 Ml Solution) 30 gm PO TID [facility] Last Admin: 12/31/21 15:42 Dose: Not Given Documented by: Naltrexone HCl (Naltrexone Hcl 50 Mg Tablet) 50 mg PO DAILY [facility] Last Admin: 12/31/21 07:38 Dose: 50 mg Documented by: Omeprazole (Omeprazole 20 Mg Capsule.Dr) 20 mg PO DAILY@0630 [facility] Last Admin: 12/31/21 05:59 Dose: 20 mg Documented by: Ondansetron HCl (Ondansetron Hcl 4 Mg/2 Ml Vial) 4 mg IVPUSH Q8H PRN PRN Reason: Nausea and Vomiting Pharmacy Consult (Consult Rx Perform Med Rec) 1 each MISCELLANE ONCE PRN PRN Reason: Consult order Propranolol HCl (Propranolol Hcl 10 Mg Tablet) 10 mg PO BID [facility]; Protocol Last Admin: 12/31/21 07:38 Dose: 10 mg Documented by: Rifaximin (Rifaximin 550 Mg Tablet) 550 mg PO BID [facility] Last Admin: 12/31/21 07:38 Dose: 550 mg Documented by: Sodium Chloride (0.9 % Sodium Chloride Flush 3 Ml Syringe) 3 ml IVFLUSH QSHIFT [facility] Last Admin: 12/31/21 07:40 Dose: 3 ml Documented by: Spironolactone (Spironolactone 25 Mg Tablet) 50 mg PO DAILY [facility]; Protocol Last Admin: 12/31/21 07:39 Dose: 50 mg Documented by: Home Medications Medication Instructions Recorded Confirmed Last Taken Type vedolizumab 300 mg intravenous 300 mg IV Q8W 06/04/21 12/30/21 Unknown History solution (Entyvio) lactulose 10 gram/15 mL oral 45 ml PO TID 12/24/21 12/30/21 Unknown History solution propranolol 10 mg tablet 10 mg PO BID 12/24/21 12/30/21 Unknown History aspirin 81 mg chewable tablet 81 mg PO DAILY 12/30/21 12/30/21 Unknown History spironolactone 50 mg tablet 50 mg PO DAILY 12/30/21 12/30/21 Unknown History Physical Exam Vital Signs: Last Vital Signs Temp 98.0 F 12/31/21 15:01 Pulse 78 12/31/21 15:01 Resp 20 12/31/21 15:01 BP 97/61 12/31/21 15:01 Pulse Ox 97 12/31/21 15:01 BMI result Body Mass Index 38.9 Neck Neck: Yes no JVD Chest Chest palpation & inspection: normal inspection of the chest Cardio Jugular venous distension: no JVD Rhythm: regular rhythm Heart sounds: S1 normal heart sound present and S2 normal heart sound present Extrem General: Yes no clubbing, cyanosis or edema Results Lab Results Result Diagrams: 12/31/21 08:29 12/31/21 08:29 Lab results: Chemistry 12/31/21 08:29 Sodium 130 L Potassium 4.2 Carbon Dioxide 21 L BUN 37 H Creatinine 1.89 H Calcium 7.8 L Hematology 12/31/21 08:29 WBC 16.0 H Hgb 8.6 L Plt Count 119 L Urinalysis 12/30/21 18:22 Urine Color ORANGE A Urine Appearance CLEAR Urine pH 5.5 Ur Specific [place] >= 1.030 H Urine Protein TRACE Urine Glucose (UA) NEG Urine Ketones NEG Urine Blood NEG Urine Nitrite NEG Ur Leukocyte Esterase NEG Assessment and Plan (1) Acute kidney injury: Status: Acute Plan 56-year-old male with past medical history of alcoholic liver cirrhosis, hepatic encephalopathy, coagulopathy, UC (on entyvio) and PSC who presented to the emergency as a referral from GI office for 2 weeks of increased weakness, decreased appetite, jaundice and abdominal distension.? The patient reported that 2 weeks ago he took the COVID vaccine and started to feel down since then. He did notice increased diarrhea recently, but no blood in stool.? Reported his mind has been clear with no reported confusion denies drinking any alcohol. In the emergency he was found to elevated WBCs.? Started on prophylaxis Zosyn by Gastroenterology.? Sent for paracentesis which did not show any evidence of SBP interventional Radiology was able to remove 250 mL during paracentesis #)ALBERT in setting of prior normal renal function. His albert is likely in setting of poor po intake and volume depletion from infection but given hx cirrhosis will certainly not rule out HRS at this point. HOld n-toxic agents such as (nsaids, acei/arb, contrast, renal dosing abx) renal US if patient becomes oliguric/anuric. urine studies for am to include (UUN, U-Cr, U-Na, UA) Maintain hemodynamics. paracentesis with only 250 cc fluid removal. less suspicion for ACS. He would benefit from administration of albumin once volume replete. Additional recommendations once more clinical data available. COntinue to monitor renal panel daily Procedures Date of Service Date of Service: 12/31/21
--- NOTE | 2021-12-31 18:22 | PC.NURSE ---
Pt alert and oriented x4 and pleasant to work with. Denies pain or discomfort. Pt admitted to 485 with a diagnosis of ALBERT. hyponatremia, and pain due to liver cirrhosis. Pt was on NaCl running at 75cc/hr which was later D/C. Pt also given Albumin x4 doses. Pt on Zosyn Q6hrs. Blood cultures came back positive for gram negative rods. notified.
[2022-01-01] VITALS (7 sets, daily range): BP systolic 92–135; BP diastolic 42–64; PULSE 66–80; RESP 18–22; TEMP 36.2–38.4; O2SAT 93–100
[2022-01-01] MEDS: 0.9 % Sodium Chloride Flush 3 ML SYRINGE IVFLUSH ×3 (01:19→14:59)
[2022-01-01] MEDS: Omeprazole 20 MG CAPSULE.DR PO (06:14)
[2022-01-01] MEDS: Lactulose 20 GM/30 ML SOLUTION 30 GM PO (07:40)
[2022-01-01] MEDS: rifAXIMin 550 MG TABLET PO ×2 (07:41→20:17)
[2022-01-01] MEDS: Spironolactone 25 MG TABLET 50 MG PO (07:41)
[2022-01-01] MEDS: Naltrexone HCl 50 MG TABLET PO (07:41)
[2022-01-01] MEDS: Propranolol HCL 10 MG TABLET PO ×2 (07:41→20:17)
[2022-01-01] MEDS: Aspirin 81 MG TAB.CHEW PO (07:42)
[2022-01-01] MEDS: Heparin Sodium,Porcine 5,000 UNIT/ML VIAL 5000 UNIT SUBCUT ×2 (07:42→18:55)
[2022-01-01] MEDS: cefTRIAXone sodium 1 GM in 0.9 % Sodium Chloride 50 ML IV (07:42)
[2022-01-01 08:36] LABS: Hemoglobin 8.7 g/dl (14.0-18.0); Mean Corpuscular HGB Conc 34.8 g/dl (31.0-36.0); Mean Corpuscular Hemoglobin 34.4 pg (27.0-33.0); Mean Corpuscular Volume 98.8 fL (80.0-98.0); Mean Platelet Volume 9.4 fL (9.4-12.4); Platelet Count 130 X10*3/uL (160-400); Red Blood Count 2.53 X10*6/uL (4.60-5.80); Red Cell Distribution Width 17.1 % (11.0-16.0); White Blood Count 10.9 X10*3/uL (4.8-10.8)
[2022-01-01 08:49] LABS: Alanine Aminotransferase 49 U/L (0-40); Albumin Level 2.2 g/dL (3.5-5.0); Alkaline Phosphatase 158 U/L (39-117); Anion Gap 10 (12-20); Aspartate Amino Transferase 83 U/L (5-37); Bilirubin Direct 4.6 mg/dL (0.0-0.5); Bilirubin Total 5.3 mg/dL (0.0-1.0); Blood Urea Nitrogen 29 mg/dL (9-16); Calcium 7.8 mg/dL (8.4-10.2); Carbon Dioxide 20 mmol/L (22-29); Chloride 104 mmol/L (96-108); Creatinine Clr Calc Pharmacy 82.6; Estimated Glomerular Filt Rate 58; Glucose Random 123 mg/dL (60-115); Potassium 4.1 mmol/L (3.3-5.1); Sodium 130 mmol/L (135-145)
[2022-01-01] MEDS: Albumin Human 25 % 100 ML IV ×3 (09:58→20:17)
--- NOTE | 2022-01-01 11:03 | HO.PM.IMPN ---
Subjective Subjective Date of Service: 01/01/22 Interval History: the patient was seen and evaluated this morning Laying in bed, feels better today Liver enzymes and kidney function improving Denies any fever, chills or abdominal pain No reported other overnight events. Review of Systems No fever, chills but decreased appetite and increased generalized weakness No chest pain, palpitation No shortness of breath or coughing No abdominal pain, but reported episodes of diarrhea and more abdominal distension No urinary symptoms No any rash or wounds Physical Exam Vital Signs: Vital Signs: Last Vital Signs Temp 98.7 F 01/01/22 07:15 Pulse 69 01/01/22 07:15 Resp 18 01/01/22 07:15 BP 101/56 L 01/01/22 07:15 Pulse Ox 98 01/01/22 07:15 BMI result Body Mass Index 38.9 Const: Other: Constitutional : Alert, oriented, not in distress Neck : Normal inspection, Supple Cardiovascular : RRR, S1 S2, no lower extremity edema Respiratory : Fair bilateral air entry, no crackles, wheezes or rhonchi Gastrointestinal: soft, lax, Normal bowel sounds, Non tender, mildly distended with mild amount of ascites Skin : Warm, Dry Neurological : Alert & oriented x3, No focal deficit Objective Data Active Medications Aspirin (Aspirin 81 Mg Tab.Chew) 81 mg PO DAILY [facility] Last Admin: 01/01/22 07:42 Dose: 81 mg Documented by: JOSH Calcium Carbonate (Calcium Carbonate 500 Mg Tablet) 500 mg PO BID [facility] Last Admin: 01/01/22 07:41 Dose: 500 mg Documented by: JOSH Heparin Sodium (Porcine) (Heparin Sodium,Porcine 5,000 Unit/Ml Vial) 5,000 unit SUBCUT Q12H [facility] Last Admin: 01/01/22 07:42 Dose: 5,000 unit Documented by: JOSH Ceftriaxone Sodium 1 gm/ (Sodium Chloride) 50 mls @ 100 mls/hr IV Q24H [facility] Last Infusion: 01/01/22 09:52 Dose: 100 mls/hr Documented by: JOSH Albumin Human (Kedbumin 25 %) 100 mls @ 100 mls/hr IV Q6H [facility] Stop: 01/02/22 03:14 Last Admin: 01/01/22 09:58 Dose: 100 mls/hr Documented by: JOSH Lactulose (Lactulose 20 Gm/30 Ml Solution) 30 gm PO TID [facility] Last Admin: 01/01/22 07:40 Dose: 30 gm Documented by: JOSH Naltrexone HCl (Naltrexone Hcl 50 Mg Tablet) 50 mg PO DAILY [facility] Last Admin: 01/01/22 07:41 Dose: 50 mg Documented by: JOSH Omeprazole (Omeprazole 20 Mg Capsule.Dr) 20 mg PO DAILY@0630 [facility] Last Admin: 01/01/22 06:14 Dose: 20 mg Documented by: FRANCINE Ondansetron HCl (Ondansetron Hcl 4 Mg/2 Ml Vial) 4 mg IVPUSH Q8H PRN PRN Reason: Nausea and Vomiting Pharmacy Consult (Consult Rx Perform Med Rec) 1 each MISCELLANE ONCE PRN PRN Reason: Consult order Propranolol HCl (Propranolol Hcl 10 Mg Tablet) 10 mg PO BID [facility]; Protocol Last Admin: 01/01/22 07:41 Dose: 10 mg Documented by: JOSH Rifaximin (Rifaximin 550 Mg Tablet) 550 mg PO BID [facility] Last Admin: 01/01/22 07:41 Dose: 550 mg Documented by: JOSH Sodium Chloride (0.9 % Sodium Chloride Flush 3 Ml Syringe) 3 ml IVFLUSH QSHIFT [facility] Last Admin: 01/01/22 07:43 Dose: 3 ml Documented by: JOSH Spironolactone (Spironolactone 25 Mg Tablet) 50 mg PO DAILY [facility]; Protocol Last Admin: 01/01/22 07:41 Dose: 50 mg Documented by: JOSH Labs CBC & Chem 7: 01/01/22 08:22 01/01/22 08:22 Labs: Laboratory Results - last 24 hr 01/01/22 01/01/22 08:22 08:22 MCV 98.8 H MCH 34.4 H MCHC 34.8 RDW 17.1 H Plt Count 130 L MPV 9.4 Absolute Nucleated RBC 0.000 Nucleated RBC % (auto) 0.0 Anion Gap 10 L Estim Creat Clear Calc 82.6 Estimated GFR 58 Random Glucose 123 H Calcium 7.8 L Total Bilirubin 5.3 H Direct Bilirubin 4.6 H AST 83 H ALT 49 H Alkaline Phosphatase 158 H Total Protein 6.0 L Albumin 2.2 L Microbiology Microbiology Results: Microbiology 02/10/22 14:52 Blood Culture - Preliminary Blood - Venous Gram negative chris 12/30/21 14:52 Blood Culture - Preliminary Blood - Venous Gram negative chris 12/30/21 16:05 Gram Stain - Final Abdominal Fluid Routine Culture - Final No growth after 2 days Anaerobic Culture - Preliminary No growth to date. Assessment and Plan (1) Acute kidney injury: Status: Acute (2) SBP (spontaneous bacterial peritonitis): Status: Acute (3) Acute hyponatremia: Status: Acute (4) Elevated LFTs: Status: Acute Plan 56-year-old male with past medical history of alcoholic liver cirrhosis, hepatic encephalopathy, coagulopathy, UC (on entyvio) and PSC who presented to the emergency as a referral from GI office for 2 weeks of increased weakness, decreased appetite, jaundice and abdominal distension. Sepsis, resolved 2/2 GNR bacteremia from SBP Blood cultures growing GNR Negative CXR, negative C diff pleural fluid evaluation showing Neutrophiles >1000 Continue with ceftriaxone To be discharged on norfloxacin for secondary prevention Transaminitis secondary to HRS MRCP done showing no evidence of biliary obstruction Pending hep A, EBV, HSV, CMV Continue with albumin for now Lactic acidosis Multifactorial not secondary to severe sepsis including liver disease, infextion and hypotension Acute kidney injury Improving secondary to dehydration, hepatorenal syndrome Continue albumin Monitor intake and output Nephrology input appreciated Hyponatremia Sodium improved to 130 Secondary to cirrhosis, Kyaw I and decreased oral intake monitor BMP History of liver cirrhosis Continue lactulose, naltrexone and rifaximin continue spironolactone and propranolol DVT PPX Heparin Quality Stroke Does the patient have a stroke diagnosis?: No VTE Prior VTE?: No VTE Risk Level:: Medical - moderate - high VTE Device Contraindication: Treatment Not Indicated VTE Drug Contraindication: N/A - Med Ordered
--- NOTE | 2022-01-01 11:53 | P.PNGI_ITS ---
Subjective Subjective Date of Service: 01/01/22 Interval History: feeling much better abby energy, appettite is better no abdo pain GNR in blood cultures Critical Care Time (minutes): 0 Physical Exam Vital Signs: Vital Signs: Last Vital Signs Temp 97.5 F 01/01/22 11:21 Pulse 67 01/01/22 11:21 Resp 18 01/01/22 11:21 BP 99/59 L 01/01/22 11:21 Pulse Ox 99 01/01/22 11:21 BMI result Body Mass Index 38.9 EXAM: GENERAL: The patient is well developed and nontoxic. VITAL SIGNS:see workflow HEENT: icteric sclerae, PERRLA, EOMI. Oropharynx clear. Moist mucous membranes. Conjunctivae appear well perfused. No thyroid mass. CHEST: Chest wall is nontender. HEART: Regular rate and rhythm without murmurs. LUNGS: Clear to auscultation bilaterally. ABDOMEN: Soft, positive bowel sounds, nontender, no organomegaly.no flank tenderness SKIN: No rash, no excessive bruising, petechiae, or purpura. NEUROLOGIC: Cranial nerves II-XII intact without motor/sensory deficit. Objective Data Labs CBC & Chem 7: 01/01/22 08:22 01/01/22 08:22 Labs: Laboratory Results - last 24 hr 01/01/22 01/01/22 08:22 08:22 WBC 10.9 H RBC 2.53 L Hgb 8.7 L Hct 25.0 L MCV 98.8 H MCH 34.4 H MCHC 34.8 RDW 17.1 H Plt Count 130 L MPV 9.4 Absolute Nucleated RBC 0.000 Nucleated RBC % (auto) 0.0 Sodium 130 L Potassium 4.1 Chloride 104 Carbon Dioxide 20 L Anion Gap 10 L BUN 29 H Creatinine 1.29 Estim Creat Clear Calc 82.6 Estimated GFR 58 Random Glucose 123 H Calcium 7.8 L Total Bilirubin 5.3 H Direct Bilirubin 4.6 H AST 83 H ALT 49 H Alkaline Phosphatase 158 H Total Protein 6.0 L Albumin 2.2 L Microbiology Microbiology Results: Microbiology 12/30/21 14:52 Blood - Venous Blood Culture - Preliminary Gram negative chris 12/30/21 14:52 Blood - Venous Blood Culture - Preliminary Gram negative chris 12/30/21 16:05 Abdominal Fluid Gram Stain - Final 12/30/21 16:05 Abdominal Fluid Routine Culture - Final No growth after 2 days 12/30/21 16:05 Abdominal Fluid Anaerobic Culture - Preliminary No growth to date. Procedures Date of Service Date of Service: 01/01/22 Progress Note: A&P Assessment and plan (1) SBP (spontaneous bacterial peritonitis): Status: Acute Plan 1/ PSC and UC with neutrocytic ascites and pos BC for GNR, likely had SBP PLAN: 1/ Labs impoving, cont to monitor 2/ Albumin today 100 g 25% divided doses 3/ cont wth IV ABx for few more days and d/c on norflox or cipro for indefinite use for SBP prophylaxis Fall Risk Details Current Medications: Current Medications Aspirin (Aspirin 81 Mg Tab.Chew) 81 mg PO DAILY [facility] Last Admin: 01/01/22 07:42 Dose: 81 mg Documented by: Calcium Carbonate (Calcium Carbonate 500 Mg Tablet) 500 mg PO BID [facility] Last Admin: 01/01/22 07:41 Dose: 500 mg Documented by: Heparin Sodium (Porcine) (Heparin Sodium,Porcine 5,000 Unit/Ml Vial) 5,000 unit SUBCUT Q12H [facility] Last Admin: 01/01/22 07:42 Dose: 5,000 unit Documented by: Ceftriaxone Sodium 1 gm/ (Sodium Chloride) 50 mls @ 100 mls/hr IV Q24H [facility] Last Infusion: 01/01/22 09:52 Dose: Infused Documented by: Albumin Human (Kedbumin 25 %) 100 mls @ 100 mls/hr IV Q6H [facility] Stop: 01/02/22 03:14 Last Infusion: 01/01/22 11:07 Dose: Infused Documented by: Lactulose (Lactulose 20 Gm/30 Ml Solution) 30 gm PO TID [facility] Last Admin: 01/01/22 07:40 Dose: 30 gm Documented by: Naltrexone HCl (Naltrexone Hcl 50 Mg Tablet) 50 mg PO DAILY [facility] Last Admin: 01/01/22 07:41 Dose: 50 mg Documented by: Omeprazole (Omeprazole 20 Mg Capsule.Dr) 20 mg PO DAILY@0630 [facility] Last Admin: 01/01/22 06:14 Dose: 20 mg Documented by: Ondansetron HCl (Ondansetron Hcl 4 Mg/2 Ml Vial) 4 mg IVPUSH Q8H PRN PRN Reason: Nausea and Vomiting Pharmacy Consult (Consult Rx Perform Med Rec) 1 each MISCELLANE ONCE PRN PRN Reason: Consult order Propranolol HCl (Propranolol Hcl 10 Mg Tablet) 10 mg PO BID [facility]; Protocol Last Admin: 01/01/22 07:41 Dose: 10 mg Documented by: Rifaximin (Rifaximin 550 Mg Tablet) 550 mg PO BID [facility] Last Admin: 01/01/22 07:41 Dose: 550 mg Documented by: Sodium Chloride (0.9 % Sodium Chloride Flush 3 Ml Syringe) 3 ml IVFLUSH QSHIFT [facility] Last Admin: 01/01/22 07:43 Dose: 3 ml Documented by: Spironolactone (Spironolactone 25 Mg Tablet) 50 mg PO DAILY [facility]; Protocol Last Admin: 01/01/22 07:41 Dose: 50 mg Documented by: Time Spent With Patient Time: Total time spent is greater than 50% in coordination of care (as documented) at patient's floor/unit and/or counseling patient: Time with patient: 15 - 24 minutes Quality Stroke Does the patient have a stroke diagnosis?: No VTE Prior VTE?: No VTE Risk Level:: Medical - moderate - high VTE Device Contraindication: Treatment Not Indicated VTE Drug Contraindication: N/A - Med Ordered
--- NOTE | 2022-01-01 17:56 | PM.PNNEP ---
Subjective Subjective Date of Service: 01/01/22 Principal diagnosis: Hyponatremia, ALBERT Interval history: feeling much better abby energy, appettite is better no abdo pain GNR in blood cultures Physical Exam Vital Signs: Vital Signs: Last Vital Signs Temp 97.8 F 01/01/22 15:15 Pulse 66 01/01/22 15:15 Resp 20 01/01/22 15:15 BP 135/64 01/01/22 15:15 Pulse Ox 98 01/01/22 15:15 BMI result Body Mass Index 38.9 Objective Data Labs CBC & Chem 7: 01/01/22 08:22 01/01/22 08:22 Labs: Laboratory Results - last 24 hr 01/01/22 01/01/22 08:22 08:22 WBC 10.9 H RBC 2.53 L Hgb 8.7 L Hct 25.0 L MCV 98.8 H MCH 34.4 H MCHC 34.8 RDW 17.1 H Plt Count 130 L MPV 9.4 Absolute Nucleated RBC 0.000 Nucleated RBC % (auto) 0.0 Sodium 130 L Potassium 4.1 Chloride 104 Carbon Dioxide 20 L Anion Gap 10 L BUN 29 H Creatinine 1.29 Estim Creat Clear Calc 82.6 Estimated GFR 58 Random Glucose 123 H Calcium 7.8 L Total Bilirubin 5.3 H Direct Bilirubin 4.6 H AST 83 H ALT 49 H Alkaline Phosphatase 158 H Total Protein 6.0 L Albumin 2.2 L Microbiology Microbiology Results: Microbiology 12/30/21 14:52 Blood - Venous Blood Culture - Preliminary Gram negative chris 12/30/21 14:52 Blood - Venous Blood Culture - Preliminary Gram negative chris 12/30/21 16:05 Abdominal Fluid Gram Stain - Final 12/30/21 16:05 Abdominal Fluid Routine Culture - Final No growth after 2 days 12/30/21 16:05 Abdominal Fluid Anaerobic Culture - Preliminary No growth to date. Procedures Date of Service Date of Service: 01/01/22 Assessment & Plan Assessment and plan (1) Hyponatremia with excess extracellular fluid volume: Status: Acute Plan 56-year-old male with past medical history of alcoholic liver cirrhosis, hepatic encephalopathy, coagulopathy, UC (on entyvio) and PSC who presented to the emergency as a referral from GI office for 2 weeks of increased weakness, decreased appetite, jaundice and abdominal distension.? The patient reported that 2 weeks ago he took the COVID vaccine and started to feel down since then. He did notice increased diarrhea recently, but no blood in stool.? Reported his mind has been clear with no reported confusion denies drinking any alcohol. In the emergency he was found to elevated WBCs.? Started on prophylaxis Zosyn by Gastroenterology.? Sent for paracentesis which did not show any evidence of SBP interventional Radiology was able to remove 250 mL during paracentesis #)ALBERT in setting of prior normal renal function. His albert is likely in setting of poor po intake and volume depletion from infection (Growing GNR) but given hx cirrhosis will certainly not rule out HRS at this point. HOld n-toxic agents such as (nsaids, acei/arb, contrast, renal dosing abx) renal US if patient becomes oliguric/anuric. U-Osm for am along with additional urine studies added. Maintain hemodynamics. paracentesis with only 250 cc fluid removal. less suspicion for ACS. S-Cr improving. monitor/treat n/v/d, pain, infection which are all potent stimulators of ADH and can impede correction of hyponatremia. Additional recommendations once more clinical data available. Continue to monitor renal panel daily Time Spent With Patient Time: Total time spent is greater than 50% in coordination of care (as documented) at patient's floor/unit and/or counseling patient: Progress Note: Quality Stroke Does the patient have a stroke diagnosis?: No
[2022-01-01 19:11] LABS: Creatinine Urine 261.24 mg/dL; Sodium Urine Random < 20.0 mmol/L
[2022-01-01] MEDS: LORazepam 0.5 MG TABLET PO (21:09)
[2022-01-02] MEDS: Acetaminophen 325 MG TABLET 650 MG PO (01:07)
[2022-01-02] MEDS: Albumin Human 25 % 100 ML IV (01:37)
[2022-01-02] MEDS: 0.9 % Sodium Chloride Flush 3 ML SYRINGE IVFLUSH ×3 (01:46→16:53)
[2022-01-02 03:35] VITALS: BP 106/59; PULSE 70; RESP 18; TEMP 36.7; O2SAT 95
[2022-01-02] MEDS: Omeprazole 20 MG CAPSULE.DR PO (05:55)
[2022-01-02 06:53] LABS: Anion Gap 15 (12-20); Blood Urea Nitrogen 26 mg/dL (9-16); Carbon Dioxide 19 mmol/L (22-29); Chloride 101 mmol/L (96-108); Creatinine Clr Calc Pharmacy 61.9; Estimated Glomerular Filt Rate 41; Glucose Random 85 mg/dL (60-115); Potassium 4.5 mmol/L (3.3-5.1); Sodium 130 mmol/L (135-145)
[2022-01-02 07:03] LABS: Alanine Aminotransferase 45 U/L (0-40); Albumin Level 2.8 g/dL (3.5-5.0); Alkaline Phosphatase 164 U/L (39-117); Aspartate Amino Transferase 82 U/L (5-37); Bilirubin Direct 4.8 mg/dL (0.0-0.5); Bilirubin Total 6.3 mg/dL (0.0-1.0); Total Protein 6.4 g/dL (6.5-8.0)
[2022-01-02 07:13] VITALS: BP 103/57; PULSE 71; RESP 18; TEMP 36.3; O2SAT 99
--- NOTE | 2022-01-02 09:19 | P.PNIM_ITS ---
Subjective Subjective Date of Service: 01/02/22 Interval History: the patient was seen and evaluated this morning Laying in bed, feels better today Liver enzymes and kidney function stable Denies any fever, chills or abdominal pain No reported other overnight events. Review of Systems No fever, chills but decreased appetite and weakness improving No chest pain, palpitation No shortness of breath or coughing No abdominal pain, no more diarrhea No urinary symptoms No any rash or wounds Physical Exam Vital Signs: Vital Signs: Last Vital Signs Temp 97.4 F 01/02/22 07:13 Pulse 71 01/02/22 07:13 Resp 18 01/02/22 07:13 BP 103/57 L 01/02/22 07:13 Pulse Ox 99 01/02/22 07:13 BMI result Body Mass Index 38.9 Const: Other: Constitutional : Alert, oriented, not in distress Neck : Normal inspection, Supple Cardiovascular : RRR, S1 S2, no lower extremity edema Respiratory : Fair bilateral air entry, no crackles, wheezes or rhonchi Gastrointestinal: soft, lax, Normal bowel sounds, Non tender, mildly distended with mild amount of ascites Skin : Warm, Dry Neurological : Alert & oriented x3, No focal deficit Objective Data Active Medications Acetaminophen (Acetaminophen 325 Mg Tablet) 650 mg PO Q12H PRN PRN Reason: fever Last Admin: 01/02/22 01:07 Dose: 650 mg Documented by: LORENZO Aspirin (Aspirin 81 Mg Tab.Chew) 81 mg PO DAILY [facility] Last Admin: 01/01/22 07:42 Dose: 81 mg Documented by: JOSH Calcium Carbonate (Calcium Carbonate 500 Mg Tablet) 500 mg PO BID [facility] Last Admin: 01/01/22 20:17 Dose: 500 mg Documented by: FIDELINA Heparin Sodium (Porcine) (Heparin Sodium,Porcine 5,000 Unit/Ml Vial) 5,000 unit SUBCUT Q12H [facility] Last Admin: 01/01/22 18:55 Dose: 5,000 unit Documented by: FIDELINA Ceftriaxone Sodium 1 gm/ (Sodium Chloride) 50 mls @ 100 mls/hr IV Q24H [facility] Last Infusion: 01/01/22 09:52 Dose: 100 mls/hr Documented by: JOSH Lactulose (Lactulose 20 Gm/30 Ml Solution) 30 gm PO TID [facility] Last Admin: 01/01/22 20:16 Dose: Not Given Documented by: FIDELINA Non-Admin Reason: Patient Refused Naltrexone HCl (Naltrexone Hcl 50 Mg Tablet) 50 mg PO DAILY [facility] Last Admin: 01/01/22 07:41 Dose: 50 mg Documented by: JOSH Omeprazole (Omeprazole 20 Mg Capsule.Dr) 20 mg PO DAILY@0630 [facility] Last Admin: 01/02/22 05:55 Dose: 20 mg Documented by: LORENZO Ondansetron HCl (Ondansetron Hcl 4 Mg/2 Ml Vial) 4 mg IVPUSH Q8H PRN PRN Reason: Nausea and Vomiting Pharmacy Consult (Consult Rx Perform Med Rec) 1 each MISCELLANE ONCE PRN PRN Reason: Consult order Propranolol HCl (Propranolol Hcl 10 Mg Tablet) 10 mg PO BID [facility]; Protocol Last Admin: 01/01/22 20:17 Dose: 10 mg Documented by: FIDELINA Rifaximin (Rifaximin 550 Mg Tablet) 550 mg PO BID [facility] Last Admin: 01/01/22 20:17 Dose: 550 mg Documented by: FIDELINA Sodium Chloride (0.9 % Sodium Chloride Flush 3 Ml Syringe) 3 ml IVFLUSH QSHIFT [facility] Last Admin: 01/02/22 01:46 Dose: 3 ml Documented by: LORENZO Spironolactone (Spironolactone 25 Mg Tablet) 50 mg PO DAILY [facility]; Protocol Last Admin: 01/01/22 07:41 Dose: 50 mg Documented by: JOSH Labs CBC & Chem 7: 01/01/22 08:22 01/02/22 05:47 Labs: Laboratory Results - last 24 hr 01/01/22 01/02/22 01/02/22 18:49 05:47 05:47 Anion Gap 15 Estim Creat Clear Calc 61.9 Estimated GFR 41 Random Glucose 85 Calcium 8.0 L Total Bilirubin 6.3 H Direct Bilirubin 4.8 H AST 82 H ALT 45 H Alkaline Phosphatase 164 H Total Protein 6.4 L Albumin 2.8 L D Ur Random Sodium < 20.0 Urine Creatinine 261.24 Microbiology Microbiology Results: Microbiology 12/30/21 14:52 Blood Culture - Preliminary Blood - Venous Enterobacter cloacae complex 12/30/21 14:52 Blood Culture - Final Blood - Venous Enterobacter cloacae complex 12/30/21 16:05 Gram Stain - Final Abdominal Fluid Routine Culture - Final No growth after 2 days Anaerobic Culture - Preliminary No growth to date. Assessment and Plan (1) Hyponatremia with excess extracellular fluid volume: Status: Acute (2) Acute kidney injury: Status: Acute (3) SBP (spontaneous bacterial peritonitis): Status: Acute (4) Acute renal injury: Status: Acute (5) Acute hyponatremia: Status: Acute (6) Elevated LFTs: Status: Acute Plan 56-year-old male with past medical history of alcoholic liver cirrhosis, hepatic encephalopathy, coagulopathy, UC (on entyvio) and PSC who presented to the emergency as a referral from GI office for 2 weeks of increased weakness, decreased appetite, jaundice and abdominal distension. Sepsis, resolved 2/2 GNR bacteremia from SBP Blood cultures growing GNR Negative CXR, negative C diff pleural fluid evaluation showing Neutrophiles >1000 Continue with ceftriaxone day4 total antibiotics To be discharged on norfloxacin for secondary prevention Transaminitis secondary to HRS MRCP done showing no evidence of biliary obstruction Pending hep A, EBV, HSV, CMV Received a dose of albumin Lactic acidosis Multifactorial not secondary to severe sepsis including liver disease, infextion and hypotension Acute kidney injury Improving , creatinine around 1.7 secondary to dehydration, hepatorenal syndrome Received albumin Monitor intake and output Nephrology input appreciated Hyponatremia Stable around 130 Secondary to cirrhosis, Kyaw I and decreased oral intake monitor BMP History of liver cirrhosis Continue lactulose, naltrexone and rifaximin continue spironolactone and propranolol DVT PPX Heparin Quality Stroke Does the patient have a stroke diagnosis?: No VTE Prior VTE?: No VTE Risk Level:: Medical - moderate - high VTE Device Contraindication: Treatment Not Indicated VTE Drug Contraindication: N/A - Med Ordered
[2022-01-02] MEDS: Aspirin 81 MG TAB.CHEW PO (09:26)
[2022-01-02] MEDS: Propranolol HCL 10 MG TABLET PO ×2 (09:26→20:06)
[2022-01-02] MEDS: Naltrexone HCl 50 MG TABLET PO (09:26)
[2022-01-02] MEDS: cefTRIAXone sodium 1 GM in 0.9 % Sodium Chloride 50 ML IV (09:27)
[2022-01-02] MEDS: rifAXIMin 550 MG TABLET PO ×2 (09:27→20:06)
[2022-01-02] MEDS: Spironolactone 25 MG TABLET 50 MG PO (09:27)
[2022-01-02 11:00] VITALS: BP 98/60; PULSE 72; RESP 18; TEMP 36.3; O2SAT 98
[2022-01-02 15:08] VITALS: BP 100/55; PULSE 72; RESP 20; TEMP 36.7; O2SAT 98
--- NOTE | 2022-01-02 18:28 | PM.PNNEP ---
Subjective Subjective Date of Service: 01/02/22 Principal diagnosis: Hyponatremia, ALBERT Interval history: the patient was seen and evaluated. Chart Reviewed. Events noted. No reported other overnight events. The patient has no complaints. Physical Exam Vital Signs: Vital Signs: Last Vital Signs Temp 98.0 F 01/02/22 15:08 Pulse 72 01/02/22 15:08 Resp 20 01/02/22 15:08 BP 100/55 L 01/02/22 15:08 Pulse Ox 98 01/02/22 15:08 BMI result Body Mass Index 38.9 Const: General: cooperative and no acute distress Resp: Effort & Inspection: normal respiratory effort Cardio: Jugular venous distension: no JVD Rhythm: regular rhythm Heart sounds: S1 normal heart sound present and S2 normal heart sound present GI: Inspection: Yes Abdominal wall edema and Yes distended Extrem: General: Yes edema Objective Data Labs CBC & Chem 7: 01/01/22 08:22 01/02/22 05:47 Labs: Laboratory Results - last 24 hr 01/01/22 01/02/22 01/02/22 18:49 05:47 05:47 Sodium 130 L Potassium 4.5 Chloride 101 Carbon Dioxide 19 L Anion Gap 15 BUN 26 H Creatinine 1.72 H Estim Creat Clear Calc 61.9 Estimated GFR 41 Random Glucose 85 Calcium 8.0 L Total Bilirubin 6.3 H Direct Bilirubin 4.8 H AST 82 H ALT 45 H Alkaline Phosphatase 164 H Total Protein 6.4 L Albumin 2.8 L D Ur Random Sodium < 20.0 Urine Creatinine 261.24 Microbiology Microbiology Results: Microbiology 12/30/21 14:52 Blood - Venous Blood Culture - Preliminary Enterobacter cloacae complex 12/30/21 16:05 Abdominal Fluid Gram Stain - Final 12/30/21 16:05 Abdominal Fluid Routine Culture - Final No growth after 2 days 12/30/21 16:05 Abdominal Fluid Anaerobic Culture - Preliminary No growth to date. 12/30/21 14:52 Blood - Venous Blood Culture - Preliminary Enterobacter cloacae complex Procedures Date of Service Date of Service: 01/02/22 Assessment & Plan Assessment and plan (1) Acute kidney injury: Status: Acute Plan 56-year-old male with past medical history of alcoholic liver cirrhosis, hepatic encephalopathy, coagulopathy, UC (on entyvio) and PSC who presented to the emergency as a referral from GI office for 2 weeks of increased weakness, decreased appetite, jaundice and abdominal distension.? The patient reported that 2 weeks ago he took the COVID vaccine and started to feel down since then. He did notice increased diarrhea recently, but no blood in stool.? Reported his mind has been clear with no reported confusion denies drinking any alcohol. In the emergency he was found to elevated WBCs.? Started on prophylaxis Zosyn by Gastroenterology.? Sent for paracentesis which did not show any evidence of SBP interventional Radiology was able to remove 250 mL during paracentesis #)ALBERT in setting of prior normal renal function. His albert is likely in setting of poor po intake and volume depletion from infection (Growing GNR) but given hx cirrhosis will certainly not rule out HRS at this point. His S-Cr did have noted rise from yesterday and bp appears to be on softer side today. HOld n-toxic agents such as (nsaids, acei/arb, contrast, renal dosing abx) renal US if patient becomes oliguric/anuric. U-Osm for am along with additional urine studies added. Maintain hemodynamics. paracentesis with only 250 cc fluid removal. less suspicion for ACS. Further decline in S-Cr with noted hypoalbuminemia would warrant volume expansion with albumin and MAP support with midodrine/octreotide combination. monitor/treat n/v/d, pain, infection which are all potent stimulators of ADH and can impede correction of hyponatremia. Additional recommendations once more clinical data available. Continue to monitor renal panel daily Time Spent With Patient Time: Total time spent is greater than 50% in coordination of care (as documented) at patient's floor/unit and/or counseling patient: Progress Note: Quality Stroke Does the patient have a stroke diagnosis?: No
[2022-01-02 19:11] VITALS: BP 100/48; PULSE 79; RESP 20; TEMP 36.6; O2SAT 96
[2022-01-02 23:43] VITALS: BP 111/60; PULSE 76; RESP 18; TEMP 37.1; O2SAT 98
[2022-01-03 04:00] VITALS: BP 110/58; PULSE 105; RESP 18; TEMP 37.7; O2SAT 93
[2022-01-03] MEDS: Omeprazole 20 MG CAPSULE.DR PO (05:48)
[2022-01-03] MEDS: 0.9 % Sodium Chloride Flush 3 ML SYRINGE IVFLUSH ×2 (05:49→09:48)
[2022-01-03 07:13] LABS: Alanine Aminotransferase 39 U/L (0-40); Albumin Level 2.3 g/dL (3.5-5.0); Alkaline Phosphatase 141 U/L (39-117); Aspartate Amino Transferase 59 U/L (5-37); Bilirubin Direct 4.7 mg/dL (0.0-0.5); Bilirubin Total 6.1 mg/dL (0.0-1.0)
[2022-01-03 07:15] VITALS: BP 109/56; PULSE 75; RESP 18; TEMP 37.2; O2SAT 98
[2022-01-03 07:16] LABS: Anion Gap 12 (12-20); Blood Urea Nitrogen 30 mg/dL (9-16); Calcium 7.5 mg/dL (8.4-10.2); Carbon Dioxide 18 mmol/L (22-29); Chloride 101 mmol/L (96-108); Creatinine Clr Calc Pharmacy 83.2; Estimated Glomerular Filt Rate 58; Glucose Random 126 mg/dL (60-115); Potassium 4.4 mmol/L (3.3-5.1); Sodium 127 mmol/L (135-145)
--- NOTE | 2022-01-03 09:43 | PM.DS ---
DS: Providers Provider Date of Service: 01/03/22 Date of admission: 12/30/21 18:01 Primary care physician: ANDREA Gannon Consults: 12/30/21 18:00 Consult to Gastroenterology Routine Consulting Provider: Serina Peralta Reason for consultation: Transaminitis, possible HR S Consult to Nephrology Routine Consulting Provider: Bharat Ziegler Reason for consultation: Acute on chronic kidney injury. Picture HRS? 01/03/22 07:50 Consult to Infectious Diseases Routine Consulting Provider: Stephanie Light Reason for consultation: Enterobacter Bacteremia for your kind eval. DS: Diagnosis Discharge Diagnosis (1) Acute kidney injury: Status: Resolved (2) Sepsis: Status: Acute (3) Hyponatremia with excess extracellular fluid volume: Status: Resolved (4) Bacteremia due to Enterobacter species: Status: Acute (5) SBP (spontaneous bacterial peritonitis): Status: Resolved (6) Hepatorenal syndrome: Status: Acute DS: Summary Hospital Course Hospital Course: Admission note HPI 56-year-old male with past medical history of alcoholic liver cirrhosis, hepatic encephalopathy, coagulopathy, UC (on entyvio) and PSC who presented to the emergency as a referral from GI office for 2 weeks of increased weakness, decreased appetite, jaundice and abdominal distension.? The patient reported that 2 weeks ago he took the COVID vaccine and started to feel down since then. He did notice increased diarrhea recently, but no blood in stool.? Reported his mind has been clear with no reported confusion denies drinking any alcohol. In the emergency he was found to elevated WBCs.? Started on prophylaxis Zosyn by Gastroenterology.? Sent for paracentesis which did not show any evidence of SBP interventional Radiology was able to remove 250 mL during paracentesis C diff has been ordered but patient has not had any bowel movements. Admitted for further evaluation and treatment. Hospital course The patient was admitted for evidence of sepsis at time of presentation. Ascitic fluid analysis showed evidence of SBP WBCs were above 1000. Treated with IV antibiotics with good response as he felt improvement. Blood cultures grew Enterobacter speech ease. Discussed with infectious disease specialist who recommended total 14 days of antibiotics then to be on prophylaxis treatment per Gastroenterology. At the same time is liver enzymes were noted to be elevated along with acute kidney injury. Believed to be a result of hepatorenal syndrome. Evaluated by Gastroenterology and Nephrology who recommended treatment with IV albumin as an MRCP did not show any evidence of biliary obstruction. Negative viral profile. Kidney function improved back to baseline. Noted as well to have stable Hyponatremia around 130 which believed to be secondary to cirrhosis. Remains stable S the patient clinically improved. To finish total of 14 days of antibiotic of Levaquin. To start prophylaxis antibiotic of ciprofloxacin 500 mg daily afterward. To follow with Nephrology and Gastroenterology as outpatient. Time Spent with Patient Time attestation: Total time spent providing and/or coordinating discharge services: Discharge coordination time: Greater than 30 minutes Quality: Stroke Does the patient have a stroke diagnosis?: No Physical Exam Vital Signs: Vital Signs: Last Vital Signs Temp 98.9 F 01/03/22 07:15 Pulse 75 01/03/22 07:15 Resp 18 01/03/22 07:15 BP 109/56 L 01/03/22 07:15 Pulse Ox 98 01/03/22 07:15 BMI result Body Mass Index 38.9 Const: Other: Constitutional : Alert, oriented, not in distress Neck : Normal inspection, Supple Cardiovascular : RRR, S1 S2, no lower extremity edema Respiratory : Fair bilateral air entry, no crackles, wheezes or rhonchi Gastrointestinal: soft, lax, Normal bowel sounds, Non tender, mildly distended with mild amount of ascites Skin : Warm, Dry Neurological : Alert & oriented x3, No focal deficit DS: Data Data Completed and Pending Completed studies during hospitalization [Text1]: Procedures Inspection of Lower Intestinal Tract, Via Natural or Artificial Opening Endoscopic (12/14/20) Transfusion of Nonautologous Frozen Plasma into Peripheral Vein, Percutaneous Approach (12/14/20) Transfusion of Nonautologous Plasma Cryoprecipitate into Peripheral Vein, Percutaneous Approach (12/14/20) Transfusion of Nonautologous Red Blood Cells into Peripheral Vein, Percutaneous Approach (12/14/20) Labs on day of discharge: Laboratory Results - last 24 hr 01/03/22 01/03/22 05:54 05:54 Sodium 127 L Potassium 4.4 Chloride 101 Carbon Dioxide 18 L Anion Gap 12 BUN 30 H Creatinine 1.28 Estim Creat Clear Calc 83.2 Estimated GFR 58 Random Glucose 126 H D Calcium 7.5 L D Total Bilirubin 6.1 H Direct Bilirubin 4.7 H AST 59 H ALT 39 Alkaline Phosphatase 141 H Total Protein 6.0 L Albumin 2.3 L Preliminary micro results at discharge 12/30/21 14:52 Blood Culture - Preliminary Blood - Venous Enterobacter cloacae complex Gram negative chris 12/30/21 16:05 Anaerobic Culture - Preliminary Abdominal Fluid No growth to date. 01/02/22 00:59 Blood Culture - Preliminary Blood - Blood Bag Transfusion Rx No growth after 24 hours. 01/02/22 00:59 Blood Culture - Preliminary Blood - Blood Bag Transfusion Rx No growth after 24 hours. Discharge Plan Discharge Patient Disposition: Home, Self-Care Discharge Diagnosis: Enterobacter bacteremia Acute kidney injury Decompensated liver failure Referrals: Manpreet Avila FNP-BC [Primary Care Provider] - 1 Week Discharge Medications: New levofloxacin 500 mg tablet 500 mg PO DAILY Qty: 10 0RF ciprofloxacin HCl [Cipro] 500 mg tablet 500 mg PO DAILY Qty: 30 0RF Rx Instructions: To start on 01/13 after finishing Levofloxacin for SBP prophylaxis. Continued Xifaxan 550 mg tablet 550 mg PO BID 30 Days Qty: 60 3RF calcium carbonate [Oyster Shell Calcium] 500 mg calcium (1,250 mg) tablet 500 mg PO BID 30 Days Qty: 60 3RF ferrous sulfate [FeroSul] 325 mg (65 mg iron) tablet 325 mg PO TID Qty: 90 2RF mesalamine [Lialda] 1.2 gram tablet,delayed release (DR/EC) 4.8 g PO DAILY Qty: 120 2RF naltrexone 50 mg tablet 50 mg PO DAILY Qty: 30 1RF budesonide 3 mg capsule,delayed,extend.release 9 mg PO DAILY Qty: 90 1RF Entyvio 300 mg recon soln 300 mg IV Q8W 0RF spironolactone 50 mg tablet 50 mg PO DAILY 0RF aspirin 81 mg Tablet,Chewable 81 mg PO DAILY 0RF lactulose 10 gram/15 mL solution 45 ml PO TID 0RF propranolol 10 mg tablet 10 mg PO BID 0RF No Action omeprazole 20 mg capsule,delayed release(DR/EC) 20 mg PO QAM Qty: 60 3RF Discharge Orders: Discharge Order (Routine); Ordered 01/03/22 Ordered By: Tierra Plummer Diet: advance to usual diet and low salt diet Activity on Discharge: As tolerated Stand Alone Forms: Patient Portal Discharge page Care Plan Goals: Read below Health Concerns: Read below Plan of Treatment: Read below Assessment: You were admitted to the hospital for evaluation of weakness. Found to have acute kidney injury, evidence of infection in your ascites fluid. Blood cultures were positive for Enterobacter bacteremia treated with IV antibiotics, IV albumin as you were evaluated by mobile application engineer and infectious disease specialist. Your kidney function improved back to baseline. Your liver enzymes remain stable. To finish 10 more days of Levaquin You will be on prophylaxis antibiotic after finishing the antibiotic treatment To follow-up with Gastroenterology as outpatient Discharge Date/Time: 01/03/22 13:15
[2022-01-03] MEDS: cefTRIAXone sodium 1 GM in 0.9 % Sodium Chloride 50 ML IV (09:46)
[2022-01-03] MEDS: Naltrexone HCl 50 MG TABLET PO (09:47)
[2022-01-03] MEDS: Lactulose 20 GM/30 ML SOLUTION 30 GM PO (09:47)
[2022-01-03] MEDS: rifAXIMin 550 MG TABLET PO (09:47)
[2022-01-03] MEDS: Aspirin 81 MG TAB.CHEW PO (09:47)
[2022-01-03] MEDS: Propranolol HCL 10 MG TABLET PO (09:47)
[2022-01-03] MEDS: Spironolactone 25 MG TABLET 50 MG PO (09:47)
--- NOTE | 2022-01-03 09:55 | P.PNNP_ITS ---
Subjective Subjective Date of Service: 01/04/22 Principal diagnosis: Hyponatremia, ALBERT Interval history: Events noted Physical Exam Vital Signs: Vital Signs: Last Vital Signs Temp 98.9 F 01/03/22 07:15 Pulse 75 01/03/22 07:15 Resp 18 01/03/22 07:15 BP 109/56 L 01/03/22 07:15 Pulse Ox 98 01/03/22 07:15 BMI result Body Mass Index 38.9 Const: Orientation/consciousness: patient oriented x3 Neck: Neck: Yes supple Resp: Auscultation: clear to auscultation bilaterally Cardio: Jugular venous distension: no JVD Palpation: no palpable S4 Heart sounds: no gallops GI: Inspection: Yes obesity Palpation (GI): Soft to palpation Auscultation: normal bowel sounds Neuro: General: patient oriented x3 Motor exam (neuro): no asterixis Objective Data Labs CBC & Chem 7: 01/01/22 08:22 01/03/22 05:54 Labs: Laboratory Results - last 24 hr 01/03/22 01/03/22 05:54 05:54 Sodium 127 L Potassium 4.4 Chloride 101 Carbon Dioxide 18 L Anion Gap 12 BUN 30 H Creatinine 1.28 Estim Creat Clear Calc 83.2 Estimated GFR 58 Random Glucose 126 H D Calcium 7.5 L D Total Bilirubin 6.1 H Direct Bilirubin 4.7 H AST 59 H ALT 39 Alkaline Phosphatase 141 H Total Protein 6.0 L Albumin 2.3 L Microbiology Microbiology Results: Microbiology 12/30/21 14:52 Blood - Venous Blood Culture - Preliminary Enterobacter cloacae complex Gram negative chris 12/30/21 16:05 Abdominal Fluid Gram Stain - Final 12/30/21 16:05 Abdominal Fluid Routine Culture - Final No growth after 2 days 12/30/21 16:05 Abdominal Fluid Anaerobic Culture - Preliminary No growth to date. 12/30/21 14:52 Blood - Venous Blood Culture - Final Enterobacter cloacae complex 01/02/22 00:59 Blood - Blood Bag Transfusion Rx Blood Culture - Preliminary No growth after 24 hours. 01/02/22 00:59 Blood - Blood Bag Transfusion Rx Blood Culture - Preliminary No growth after 24 hours. Procedures Date of Service Date of Service: 01/03/22 Assessment & Plan Assessment and plan (1) Acute kidney injury: Status: Acute Plan 56-year-old male with past medical history of alcoholic liver cirrhosis, hepatic encephalopathy, coagulopathy, UC (on entyvio) and PSC who presented to the emergency as a referral from GI office for 2 weeks of increased weakness, decreased appetite, jaundice and abdominal distension.? The patient reported that 2 weeks ago he took the COVID vaccine and started to feel down since then. He did notice increased diarrhea recently, but no blood in stool.? Reported his mind has been clear with no reported confusion denies drinking any alcohol. In the emergency he was found to elevated WBCs.? Started on prophylaxis Zosyn by Gastroenterology.? Sent for paracentesis which did not show any evidence of SBP interventional Radiology was able to remove 250 mL during paracentesis #)ALBERT in setting of prior normal renal function. His albert is likely in setting of poor po intake and volume depletion from infe ction (Growing GNR) but given hx cirrhosis will certainly not rule out HRS at this point. His S-Cr did have noted rise from yesterday and bp appears to be on softer side today. HOld n-toxic agents such as (nsaids, acei/arb, contrast, renal dosing abx) renal US if patient becomes oliguric/anuric. U-Osm for am along with additional urine studies added. Maintain hemodynamics. monitor/treat n/v/d, pain, infection which are all potent stimulators of ADH and can impede correction of hyponatremia. Additional recommendations once more clinical data available Na is improving Restrict PO water intake Continue to monitor renal panel daily Time Spent With Patient Time: Total time spent is greater than 50% in coordination of care (as documented) at patient's floor/unit and/or counseling patient: Time with patient: 15 - 24 minutes Progress Note: Quality Stroke Does the patient have a stroke diagnosis?: No
--- NOTE | 2022-01-03 10:07 | MHC.CM.PN ---
Patient has been medically cleared for dc to home today, self care.
[2022-01-03 10:59] VITALS: BP 107/59; PULSE 68; RESP 18; TEMP 36.4; O2SAT 97
[2022-01-04 14:43] LABS: CMV DNA PCR Qn Source Plasma; CMV DNA Qn PCR Not Detected log IU/mL; CMV DNA Qn Real Time PCR Not Detected
[2022-01-04 23:01] LABS: EBV DNA PCR Not Detected (Not Detected); EBV Source Plasma
[2022-01-07 17:52] LABS: HSV 1 IgM IFA Negative (Negative); HSV 2 IgM IFA Negative (Negative)
[2022-01-10 13:31] LABS: Cortisol, Free 1.11 mcg/dL
== END 2022-01-03 13:15 | disposition home or self-care (01) | DRG 720 ==
LOC: HO.ED 16:21 → HO.EDOVER 18:09 → HO.IMC 12-31 06:39
PROVIDERS: Radiology Diagnostic Radiology; Admitting Provider Student in an Organized Health Care Education/Training Program; Emergency Provider Emergency Medicine; PCP Nurse Practitioner Family; Visit Provider Student in an Organized Health Care Education/Training Program
PROC: 0W9G3ZZ Drainage of Peritoneal Cavity, Percutaneous Approach (ICD-10-PCS; principal; 2021-12-30 15:20)
DX: A41.9 Sepsis, unspecified organism (principal); K65.2 Spontaneous bacterial peritonitis; E87.2 Acidosis; N17.9 Acute kidney failure, unspecified; K70.30 Alcoholic cirrhosis of liver without ascites; E86.0 Dehydration; E87.1 Hypo-osmolality and hyponatremia; Z20.822 Contact with and (suspected) exposure to COVID-19; Z79.82 Long term (current) use of aspirin; Z79.899 Other long term (current) drug therapy
CPT/HCPCS: 36415; 49083; 71045; 74181; 80048; 80076; 81003; 82530; 82945; 83605; 83615; 84157; 84300; 85027; 86695; 86696; 86709; 87040; 87071; 87073; 87077; 87186; 87205; 87493; 87497; 87635; 87798; 89051; 96361; 96365; 97162; 99223; 99232; 99233; 99285; J0696; J2543; P9047

== ENCOUNTER 2022-01-17 15:01 | Outpatient (REF) | payer OTHER, SELFPAY ==
[2022-01-17 16:31] LABS: MANUAL DIFF FLAG NO
[2022-01-17 16:46] LABS: Basophils Percent Auto 0.1 % (0-2); Eosinophils Percent Auto 0.1 % (0-4); Hematocrit 33.6 % (42.0-52.0); Hemoglobin 11.7 g/dl (14.0-18.0); Imm Gran Abs Auto 0.09 X10*3/uL (0.00-0.03); Imm Gran Pct Auto 1.1 % (0.0-0.4); Lymphocytes Absolute Auto 0.6 X10*3/uL (1.2-4.9); Lymphocytes Percent Auto 8.2 % (20-40); Mean Corpuscular HGB Conc 34.8 g/dl (31.0-36.0); Mean Corpuscular Hemoglobin 34.3 pg (27.0-33.0); Mean Corpuscular Volume 98.5 fL (80.0-98.0); Mean Platelet Volume 9.3 fL (9.4-12.4); Monocytes Absolute Auto 0.8 X10*3/uL (0.1-1.2); Monocytes Percent Auto 10.5 % (2-11); Neutrophils Absolute Auto 6.3 x10*3/uL (2.0-8.3); Platelet Count 139 X10*3/uL (160-400); Red Blood Count 3.41 X10*6/uL (4.60-5.80); Red Cell Distribution Width 21.1 % (11.0-16.0); White Blood Count 7.8 X10*3/uL (4.8-10.8)
[2022-01-17 16:59] LABS: Alanine Aminotransferase 288 U/L (0-40); Albumin Level 2.9 g/dL (3.5-5.0); Alkaline Phosphatase 553 U/L (39-117); Anion Gap 13 (12-20); Aspartate Amino Transferase 416 U/L (5-37); Bilirubin Total 10.6 mg/dL (0.0-1.0); Blood Urea Nitrogen 17 mg/dL (9-16); Calcium 8.6 mg/dL (8.4-10.2); Carbon Dioxide 20 mmol/L (22-29); Chloride 106 mmol/L (96-108); Estimated Glomerular Filt Rate > 60; Glucose Random 110 mg/dL (60-115); Potassium 4.5 mmol/L (3.3-5.1); Sodium 134 mmol/L (135-145); Total Protein 7.5 g/dL (6.5-8.0)
== END 2022-01-17 15:02 | disposition home or self-care (01) ==
LOC: HO.HMGCLDS 15:01
PROVIDERS: PCP Nurse Practitioner Family; Visit Provider Nurse Practitioner Family
DX: R78.81 Bacteremia (principal); B96.89 Other specified bacterial agents as the cause of diseases classified elsewhere; L60.2 Onychogryphosis
CPT/HCPCS: 36415; 80053; 85025

== ENCOUNTER 2022-01-27 10:47 | Outpatient (REF) | payer OTHER, SELFPAY ==
[2022-01-27 12:45] LABS: INTERNATIONAL NORM RATIO 1.3 (0.9-1.1); Prothrombin Time 15.4 SEC (9.9-13.0)
[2022-01-27 13:02] LABS: Alanine Aminotransferase 309 U/L (0-40); Albumin Level 2.7 g/dL (3.5-5.0); Alkaline Phosphatase 515 U/L (39-117); Anion Gap 10 (12-20); Aspartate Amino Transferase 386 U/L (5-37); Bilirubin Total 9.2 mg/dL (0.0-1.0); Blood Urea Nitrogen 15 mg/dL (9-16); Calcium 8.8 mg/dL (8.4-10.2); Carbon Dioxide 22 mmol/L (22-29); Chloride 106 mmol/L (96-108); Estimated Glomerular Filt Rate > 60; Glucose Random 106 mg/dL (60-115); Potassium 4.5 mmol/L (3.3-5.1); Sodium 133 mmol/L (135-145); Total Protein 6.9 g/dL (6.5-8.0)
== END 2022-01-27 10:48 | disposition home or self-care (01) ==
LOC: HO.LABR 10:47
PROVIDERS: PCP Nurse Practitioner Family; Visit Provider Physician Assistant
DX: K83.01 Primary sclerosing cholangitis (principal); K70.31 Alcoholic cirrhosis of liver with ascites; Z76.82 Awaiting organ transplant status
CPT/HCPCS: 36415; 80053; 85610

== ENCOUNTER 2022-02-11 07:40 | Outpatient (REF) | payer OTHER, SELFPAY ==
[2022-02-13 18:45] LABS: TS Negative Control Passed; TS Panel A 0; TS Panel B 0; TS Positive Control Passed; TSpotTB Negative (Negative)
== END 2022-02-11 07:41 | disposition home or self-care (01) ==
LOC: HO.MDS 07:40
PROVIDERS: Internal Medicine Gastroenterology; PCP Nurse Practitioner Family; Visit Provider Internal Medicine Gastroenterology
DX: K51.90 Ulcerative colitis, unspecified, without complications (principal)
CPT/HCPCS: 36415; 86481; 96413; J1745

== ENCOUNTER → 2022-02-14 13:42 | Outpatient (BNVA) | payer OTHER, SELFPAY | PROVIDERS: PCP Nurse Practitioner Family; Referring Provider Nurse Practitioner Family; Visit Provider Internal Medicine Gastroenterology | DX: K70.30 Alcoholic cirrhosis of liver without ascites (principal) | CPT/HCPCS: 99212 ==

== ENCOUNTER 2022-02-23 09:10 | Day surgery (SDC) | payer OTHER, SELFPAY ==
[2022-02-23] VITALS (7 sets, daily range): BP systolic 123–137; BP diastolic 71–80; PULSE 76–88; RESP 17–20; TEMP 36.1–36.4; O2SAT 96–97; BMI 35.4
--- NOTE | ~2022-02-23 | US_ITS ---
EXAMINATION: US-GUIDED PARACENTESIS CLINICAL INFORMATION: Cirrhosis of liver COMPARISON: None TECHNIQUE: Following explaining ultrasound-guided paracentesis procedure, benefits and risk, a written consent was obtained. Preliminary ultrasound imaging was obtained through the abdomen. An optimal site was selected along the right lower quadrant and marked. Marked site was cleaned and draped in the usual sterile manner. 1% lidocaine was injected at the puncture site. 3 small skin incisions a 5 [employer] catheter was advanced through the incision intraperitoneally. After obtaining venous return, stylet was withdrawn and catheter connected to vacuum bottle via connecting cannula. After obtaining all fluid and observing no more fluid return, catheter was removed and complete hemostasis achieved at puncture site. Sterile dressing applied at the puncture site. Patient tolerated procedure extremely well. FINDINGS: On preliminary ultrasound imaging, there is moderate fluid seen most localized in the right mid to lower quadrant. Approximately 700 mL of clear yellowish fluid was drained from the right lower quadrant. None of this fluid was sent to lab. US/US paracentesis abd w/image IMPRESSION: Successful therapeutic paracentesis performed.
[2022-02-23 10:10] LABS: Basophils Percent Auto 0.6 % (0-2); Eosinophils Percent Auto 1.3 % (0-4); Hemoglobin 11.9 g/dl (14.0-18.0); Imm Gran Abs Auto 0.01 X10*3/uL (0.00-0.03); Imm Gran Pct Auto 0.3 % (0.0-0.4); Lymphocytes Absolute Auto 1.1 X10*3/uL (1.2-4.9); Lymphocytes Percent Auto 35.1 % (20-40); MANUAL DIFF FLAG SCAN; Mean Corpuscular Hemoglobin 34.6 pg (27.0-33.0); Mean Corpuscular Volume 101.7 fL (80.0-98.0); Mean Platelet Volume 8.9 fL (9.4-12.4); Monocytes Absolute Auto 0.4 X10*3/uL (0.1-1.2); Monocytes Percent Auto 11.2 % (2-11); Neutrophils Absolute Auto 1.6 x10*3/uL (2.0-8.3); Neutrophils Percent Auto 51.5 % (45-73); Red Blood Count 3.44 X10*6/uL (4.60-5.80); Red Cell Distribution Width 15.1 % (11.0-16.0); SCAN SMEAR FLAG 1; White Blood Count 3.1 X10*3/uL (4.8-10.8)
[2022-02-23 10:11] LABS: Platelet Count 80 X10*3/uL (160-400)
[2022-02-23 10:15] LABS: INTERNATIONAL NORM RATIO 1.5 (0.9-1.1); Prothrombin Time 17.7 SEC (9.9-13.0)
[2022-02-23 10:18] LABS: Partial Thromboplastin Time 36.5 SEC (24.1-38.0)
[2022-02-23 10:41] LABS: SLIDE REVIEW VERIFIED
[2022-02-23] MEDS: Lidocaine HCl 1 % MPF 5 ML VIAL SUBCUT (11:36)
== END 2022-02-23 13:53 | disposition home or self-care (01) ==
PROVIDERS: PCP Nurse Practitioner Family; Visit Provider Radiology Diagnostic Radiology
DX: K74.60 Unspecified cirrhosis of liver (principal); R18.8 Other ascites; F10.10 Alcohol abuse, uncomplicated; K72.90 Hepatic failure, unspecified without coma; K76.0 Fatty (change of) liver, not elsewhere classified
CPT/HCPCS: 36415; 49083; 85025; 85610; 85730

== ENCOUNTER 2022-03-01 13:04 | Outpatient (REF) | payer OTHER, SELFPAY ==
[2022-03-01 14:05] LABS: INTERNATIONAL NORM RATIO 1.6 (0.9-1.1); Prothrombin Time 17.8 SEC (9.9-13.0)
[2022-03-01 14:40] LABS: Alanine Aminotransferase 197 U/L (0-40); Albumin Level 2.3 g/dL (3.5-5.0); Alkaline Phosphatase 459 U/L (39-117); Anion Gap 12 (12-20); Aspartate Amino Transferase 317 U/L (5-37); Bilirubin Total 5.1 mg/dL (0.0-1.0); Blood Urea Nitrogen 8 mg/dL (9-16); Calcium 8.3 mg/dL (8.4-10.2); Carbon Dioxide 16 mmol/L (22-29); Chloride 111 mmol/L (96-108); Estimated Glomerular Filt Rate > 60; Glucose Random 197 mg/dL (60-115); Potassium 3.5 mmol/L (3.3-5.1); Sodium 135 mmol/L (135-145); Total Protein 6.7 g/dL (6.5-8.0)
== END 2022-03-01 13:05 | disposition home or self-care (01) ==
LOC: HO.LABR 13:04
PROVIDERS: PCP Nurse Practitioner Family; Visit Provider Physician Assistant
DX: K83.01 Primary sclerosing cholangitis (principal); K70.31 Alcoholic cirrhosis of liver with ascites; Z76.82 Awaiting organ transplant status
CPT/HCPCS: 36415; 80053; 85610

== ENCOUNTER 2022-03-10 08:02 | Outpatient (REF) | payer OTHER, SELFPAY ==
--- NOTE | ~2022-03-10 | MR_ITS ---
EXAMINATION: MR ABDOMEN WITHOUT AND WITH CONTRAST CLINICAL INFORMATION: Liver cirrhosis COMPARISON: MRCP dated from 12/30/2021. MR abdomen dated from 12/09/2020. TECHNIQUE: MR abdomen was performed without and with use of 10 mL intravenous Gadavist gadolinium contrast. Postcontrast images are performed in multiphase dynamic sequences. Imaging was performed in 3 planes. FINDINGS: LUNG BASES: New small right pleural effusion. LIVER, GALLBLADDER, AND BILIARY TREE: Cirrhotic liver with a very heterogeneous parenchyma and innumerable intrinsically T1 bright hyperplastic nodules. Postcontrast images are significantly degraded by motion, limiting evaluation of HCC. The hepatic vasculature is patent. There is similar degree of mild intrahepatic biliary ductal dilatation without significant extrahepatic biliary ductal dilatation. Redemonstration of several folds within the gallbladder and cholelithiasis, overall similar to priors. PANCREAS: Atrophic. SPLEEN: Normal. ADRENAL GLANDS: Normal. KIDNEYS AND URETERS: The kidneys are normal in size, shape, and enhance symmetrically. Unchanged bilateral T2 bright cysts. No hydronephrosis. No perinephric stranding. GASTROINTESTINAL TRACT: No bowel obstruction. Trace amount of perihepatic ascites. ABDOMINAL WALL: No significant hernia is appreciated. LYMPH NODES: Unchanged periportal lymphadenopathy which is nonspecific in the setting of cirrhosis. VASCULAR: Unremarkable. OSSEOUS STRUCTURES: No acute or aggressive-appearing osseous abnormalities. MR/MR abdomen wo/w con IMPRESSION: Examination is very limited due to motion limiting assessment of HCC. Recommend repeat imaging perhaps utilizing CT which is associated with less motion artifact.
== END 2022-03-10 08:03 | disposition home or self-care (01) ==
LOC: HO.MRI 08:02
PROVIDERS: Visit Provider Internal Medicine Gastroenterology
DX: K74.60 Unspecified cirrhosis of liver (principal)
CPT/HCPCS: 74183; A9585

== ENCOUNTER 2022-03-16 07:46 | Outpatient (REF) | payer OTHER, SELFPAY ==
--- NOTE | ~2022-03-16 | MM_ITS ---
EXAMINATION: BONE DENSITOMETRY CLINICAL INDICATION: Hepatorenal syndrome. COMPARISON: None (current study represents initial baseline exam). TECHNIQUE: Using a Up[employer]ater DXA System (software version: 13.1) manufactured by [employer], dual-energy x-ray absorptiometry was performed of the lumbar spine and left hip. The images are of good technical quality. Summary results are attached. FINDINGS: AP SPINE L1-L4: BMD 0.907 g/cm2, Z-score -3.8, T-score -2.6, osteoporosis. LEFT FEMUR, NECK: BMD 0.808 g/cm2, Z-score -2.8, T-score -2.0, osteopenia. LEFT FEMUR, TOTAL: BMD 0.822 g/cm2, Z-score -2.9, T-score -1.9, osteopenia. IDENTIFIED RISK FACTORS: Secondary osteoporosis, glucocorticoids (chronic). HISTORY OF FRACTURE: None listed. MEDICATIONS: Calcium supplements or multivitamin, vitamin D. MM/XR DEXA axial skeleton IMPRESSION: 1. DIAGNOSIS: Osteoporosis based on the lowest T-score value of -2.6 in the lumbar spine applying World Health Organization criteria. 2. 10-YEAR FRACTURE RISK PREDICTION, FRAX: According to the guidelines, FRAX calculation should only be performed on patients in the osteopenia bone density category. Therefore, FRAX was not performed on this patient. 3. Treatment Recommendations: NOF guidelines recommend consideration for treatment in postmenopausal women and men age 50 and older presenting with the following: -A hip or vertebral (clinical or morphometric) fracture. -T-score less than or equal to -2.5 at the femoral neck or spine after appropriate evaluation to exclude secondary causes. -Low bone mass at the hip or spine and a 10-year fracture probability by FRAX of greater than or equal to 3% for hip fracture or greater than or equal to 20% for major osteoporotic fracture based on the [place] adapted WHO algorithm. 4. Other Recommendations: All treatment decisions require clinical judgment and consideration of individual patient factors, including patient preferences, comorbidities, previous drug use, risk factors not captured in the FRAX model (e.g. frailty, falls, vitamin D deficiency, increased bone turnover, interval significant decline in bone density) and possible under or overestimation of fracture risk by FRAX. Additional medical evaluation for secondary cause of low bone mineral density may be appropriate. FUTURE SCAN RECOMMENDATION: People with diagnosed cases of osteoporosis or at high risk for fracture should have regular bone mineral density tests. For patients eligible for Medicare, routine testing is allowed once every 2 years. The testing frequency can be increased to one year for patients who have rapidly progressing disease, those who are receiving or discontinuing medical therapy to restore bone mass, or have additional risk factors.
== END 2022-03-16 07:47 | disposition home or self-care (01) ==
LOC: HO.MAMMO 07:46
PROVIDERS: Visit Provider Nurse Practitioner Family
DX: Z13.820 Encounter for screening for osteoporosis (principal); K76.7 Hepatorenal syndrome; K74.60 Unspecified cirrhosis of liver
CPT/HCPCS: 77080

== ENCOUNTER 2022-03-31 10:15 | Outpatient (REF) | payer OTHER, SELFPAY ==
[2022-03-31 11:09] LABS: INTERNATIONAL NORM RATIO 1.4 (0.9-1.1); Prothrombin Time 15.6 SEC (9.9-13.0)
[2022-03-31 11:33] LABS: Alanine Aminotransferase 138 U/L (0-40); Albumin Level 2.4 g/dL (3.5-5.0); Alkaline Phosphatase 388 U/L (39-117); Anion Gap 12 (12-20); Aspartate Amino Transferase 213 U/L (5-37); Bilirubin Total 5.4 mg/dL (0.0-1.0); Blood Urea Nitrogen 10 mg/dL (9-16); Calcium 8.7 mg/dL (8.4-10.2); Carbon Dioxide 18 mmol/L (22-29); Chloride 106 mmol/L (96-108); Estimated Glomerular Filt Rate > 60; Glucose Random 203 mg/dL (60-115); Potassium 3.7 mmol/L (3.3-5.1); Sodium 132 mmol/L (135-145); Total Protein 7.1 g/dL (6.5-8.0)
== END 2022-03-31 10:16 | disposition home or self-care (01) ==
LOC: HO.LABR 10:15
PROVIDERS: PCP Nurse Practitioner Family; Visit Provider Physician Assistant
DX: K83.01 Primary sclerosing cholangitis (principal); K70.31 Alcoholic cirrhosis of liver with ascites; Z76.82 Awaiting organ transplant status
CPT/HCPCS: 36415; 80053; 85610

== ENCOUNTER 2022-04-20 08:17 | Outpatient (REF) | payer OTHER, SELFPAY | END 2022-04-20 08:18 | disposition home or self-care (01) | LOC: HO.MDS 08:17 | PROVIDERS: Visit Provider Internal Medicine Gastroenterology | DX: K51.90 Ulcerative colitis, unspecified, without complications (principal) | CPT/HCPCS: 96413; 96415; Q5103 ==

== ENCOUNTER 2022-04-29 11:58 | Outpatient (REF) | payer OTHER, SELFPAY ==
[2022-04-29 13:18] LABS: INTERNATIONAL NORM RATIO 1.3 (0.9-1.1); Prothrombin Time 14.9 SEC (9.9-13.0)
[2022-04-29 13:46] LABS: Alanine Aminotransferase 95 U/L (0-40); Albumin Level 2.4 g/dL (3.5-5.0); Alkaline Phosphatase 313 U/L (39-117); Anion Gap 9 (12-20); Aspartate Amino Transferase 177 U/L (5-37); Bilirubin Total 4.8 mg/dL (0.0-1.0); Blood Urea Nitrogen 9 mg/dL (9-16); Calcium 8.3 mg/dL (8.4-10.2); Carbon Dioxide 20 mmol/L (22-29); Chloride 108 mmol/L (96-108); Estimated Glomerular Filt Rate > 60; Glucose Random 95 mg/dL (60-115); Potassium 4.1 mmol/L (3.3-5.1); Sodium 133 mmol/L (135-145); Total Protein 7.4 g/dL (6.5-8.0)
== END 2022-04-29 11:59 | disposition home or self-care (01) ==
LOC: HO.LABR 11:58
PROVIDERS: PCP Nurse Practitioner Family; Visit Provider Physician Assistant
DX: K83.01 Primary sclerosing cholangitis (principal); K70.31 Alcoholic cirrhosis of liver with ascites; Z76.82 Awaiting organ transplant status
CPT/HCPCS: 36415; 80053; 85610

== ENCOUNTER 2022-05-30 11:05 | Outpatient (REF) | payer OTHER, SELFPAY ==
[2022-05-30 11:32] LABS: MANUAL DIFF FLAG NO
[2022-05-30 11:57] LABS: Basophils Percent Auto 1.5 % (0-2); Eosinophils Absolute Auto 0.1 X10*3/uL (0.0-0.4); Eosinophils Percent Auto 3.4 % (0-4); Hemoglobin 11.1 g/dl (14.0-18.0); Imm Gran Abs Auto 0.01 X10*3/uL (0.00-0.03); Imm Gran Pct Auto 0.4 % (0.0-0.4); Lymphocytes Absolute Auto 0.8 X10*3/uL (1.2-4.9); Lymphocytes Percent Auto 31.3 % (20-40); Mean Corpuscular HGB Conc 34.7 g/dl (31.0-36.0); Mean Corpuscular Hemoglobin 32.4 pg (27.0-33.0); Mean Corpuscular Volume 93.3 fL (80.0-98.0); Mean Platelet Volume 9.4 fL (9.4-12.4); Monocytes Absolute Auto 0.3 X10*3/uL (0.1-1.2); Monocytes Percent Auto 9.8 % (2-11); Neutrophils Absolute Auto 1.4 x10*3/uL (2.0-8.3); Neutrophils Percent Auto 53.6 % (45-73); Red Blood Count 3.43 X10*6/uL (4.60-5.80); Red Cell Distribution Width 17.5 % (11.0-16.0); White Blood Count 2.7 X10*3/uL (4.8-10.8)
[2022-05-30 12:04] LABS: Platelet Count 99 X10*3/uL (160-400)
[2022-05-30 12:13] LABS: INTERNATIONAL NORM RATIO 1.3 (0.9-1.1); Prothrombin Time 15.6 SEC (10.0-13.1)
[2022-05-30 12:33] LABS: Alanine Aminotransferase 87 U/L (0-40); Albumin Level 2.4 g/dL (3.5-5.0); Alkaline Phosphatase 248 U/L (39-117); Anion Gap 10 (12-20); Aspartate Amino Transferase 131 U/L (5-37); Bilirubin Total 3.8 mg/dL (0.0-1.0); Blood Urea Nitrogen 12 mg/dL (9-16); C Reactive Protein 1.18 mg/dL (< or = 0.50); Calcium 8.5 mg/dL (8.4-10.2); Carbon Dioxide 20 mmol/L (22-29); Chloride 109 mmol/L (96-108); Estimated Glomerular Filt Rate > 60; Glucose Random 114 mg/dL (60-115); Potassium 4.1 mmol/L (3.3-5.1); Sodium 135 mmol/L (135-145); Total Protein 7.1 g/dL (6.5-8.0)
[2022-05-30 12:57] LABS: Ferritin 356 ng/mL (20-250); Vitamin D 25-OH Total 8.2 ng/mL (>30)
[2022-05-30 13:31] LABS: Folate 6.7 ng/mL (> or = 4.0); Vitamin B12 1242 pg/mL (200-900)
[2022-06-02 11:11] LABS: Vitamin K1 >2500 pg/mL (130-1500)
[2022-06-02 18:21] LABS: TS Negative Control Passed; TS Panel A 0; TS Panel B 0; TS Positive Control Passed; TSpotTB Negative (Negative)
[2022-06-03 10:51] LABS: Vitamin C 0.2 mg/dL (0.2-2.1)
[2022-06-03 16:37] LABS: Vitamin B5 (Pantothenic Acid) 70 ng/mL (<275)
[2022-06-03 22:16] LABS: Nicotinamide 25 ng/mL; Vit B3 - Nicotinic Acid <20 ng/mL
[2022-06-04 11:51] LABS: Vitamin B6 5.7 ng/mL (2.1-21.7)
[2022-06-04 17:02] LABS: Beta-Gamma Tocopherol 2.4 mg/L (<=4.3); Vitamin A <5 mcg/dL (38-98)
== END 2022-05-30 11:06 | disposition home or self-care (01) ==
LOC: HO.LABR 11:05
PROVIDERS: Internal Medicine Gastroenterology; PCP Nurse Practitioner Family; Visit Provider Physician Assistant
DX: Z11.1 Encounter for screening for respiratory tuberculosis (principal); K52.9 Noninfective gastroenteritis and colitis, unspecified; K75.81 Nonalcoholic steatohepatitis (NASH); K83.01 Primary sclerosing cholangitis; K70.31 Alcoholic cirrhosis of liver with ascites; Z76.82 Awaiting organ transplant status
CPT/HCPCS: 36415; 80053; 82180; 82306; 82607; 82728; 82746; 84207; 84446; 84590; 84591; 84597; 85025; 85610; 86140; 86481

== ENCOUNTER 2022-06-15 11:00 | Outpatient (REF) | payer OTHER, SELFPAY | END 2022-06-15 11:01 | disposition home or self-care (01) | LOC: HO.MDS 11:00 | PROVIDERS: Visit Provider Internal Medicine Gastroenterology | DX: K51.90 Ulcerative colitis, unspecified, without complications (principal) | CPT/HCPCS: 96413; 96415; Q5103 ==

== ENCOUNTER 2022-06-29 12:41 | Outpatient (REF) | payer OTHER, SELFPAY ==
[2022-06-29 13:04] LABS: MANUAL DIFF FLAG NO
[2022-06-29 13:34] LABS: Basophils Percent Auto 0.7 % (0-2); Eosinophils Absolute Auto 0.2 X10*3/uL (0.0-0.4); Eosinophils Percent Auto 5.3 % (0-4); Hematocrit 30.6 % (42.0-52.0); Hemoglobin 10.4 g/dl (14.0-18.0); Imm Gran Abs Auto 0.01 X10*3/uL (0.00-0.03); Imm Gran Pct Auto 0.3 % (0.0-0.4); Lymphocytes Percent Auto 32.2 % (20-40); Mean Corpuscular Hemoglobin 31.7 pg (27.0-33.0); Mean Corpuscular Volume 93.3 fL (80.0-98.0); Mean Platelet Volume 9.4 fL (9.4-12.4); Monocytes Absolute Auto 0.4 X10*3/uL (0.1-1.2); Monocytes Percent Auto 13.6 % (2-11); Neutrophils Absolute Auto 1.4 x10*3/uL (2.0-8.3); Neutrophils Percent Auto 47.9 % (45-73); Red Blood Count 3.28 X10*6/uL (4.60-5.80); Red Cell Distribution Width 18.3 % (11.0-16.0)
[2022-06-29 13:37] LABS: Platelet Count 89 X10*3/uL (160-400)
[2022-06-29 14:01] LABS: INTERNATIONAL NORM RATIO 1.4 (0.9-1.1); Prothrombin Time 16.4 SEC (10.0-13.1)
[2022-06-29 14:15] LABS: Alanine Aminotransferase 107 U/L (0-40); Albumin Level 2.2 g/dL (3.5-5.0); Alkaline Phosphatase 284 U/L (39-117); Anion Gap 10 (12-20); Aspartate Amino Transferase 204 U/L (5-37); Bilirubin Total 3.6 mg/dL (0.0-1.0); Blood Urea Nitrogen 11 mg/dL (9-16); Calcium 7.7 mg/dL (8.4-10.2); Carbon Dioxide 23 mmol/L (22-29); Chloride 107 mmol/L (96-108); Estimated Glomerular Filt Rate > 60; Glucose Random 70 mg/dL (60-115); Potassium 3.9 mmol/L (3.3-5.1); Sodium 136 mmol/L (135-145); Total Protein 6.6 g/dL (6.5-8.0)
[2022-06-30 11:41] LABS: Alpha Fetoprotein 1.5 ng/mL (<6.1)
[2022-07-01 09:46] LABS: Carbohydrate Antigen 19-9 <3 U/mL (<34)
== END 2022-06-29 12:42 | disposition home or self-care (01) ==
LOC: HO.LABR 12:41
PROVIDERS: PCP Nurse Practitioner Family; Visit Provider Physician Assistant
DX: K83.01 Primary sclerosing cholangitis (principal)
CPT/HCPCS: 36415; 80053; 82105; 85025; 85610; 86301

== ENCOUNTER 2022-07-12 11:39 | Emergency (ER) | payer OTHER, SELFPAY ==
[2022-07-12 11:48] VITALS: BP 133/62; PULSE 78; RESP 18; TEMP 37.3; O2SAT 97; BMI 35.4
[2022-07-12 11:59] LABS: MANUAL DIFF FLAG NO
[2022-07-12 12:02] LABS: Basophils Percent Auto 1.1 % (0-2); Eosinophils Absolute Auto 0.2 X10*3/uL (0.0-0.4); Eosinophils Percent Auto 5.5 % (0-4); Hematocrit 30.8 % (42.0-52.0); Hemoglobin 10.8 g/dl (14.0-18.0); Lymphocytes Absolute Auto 0.9 X10*3/uL (1.2-4.9); Lymphocytes Percent Auto 32.5 % (20-40); Mean Corpuscular HGB Conc 35.1 g/dl (31.0-36.0); Mean Corpuscular Hemoglobin 32.3 pg (27.0-33.0); Mean Corpuscular Volume 92.2 fL (80.0-98.0); Mean Platelet Volume 8.8 fL (9.4-12.4); Monocytes Absolute Auto 0.3 X10*3/uL (0.1-1.2); Monocytes Percent Auto 10.9 % (2-11); Neutrophils Absolute Auto 1.4 x10*3/uL (2.0-8.3); Red Blood Count 3.34 X10*6/uL (4.60-5.80); Red Cell Distribution Width 18.6 % (11.0-16.0); White Blood Count 2.7 X10*3/uL (4.8-10.8)
[2022-07-12 12:03] LABS: Platelet Count 86 X10*3/uL (160-400)
[2022-07-12 12:24] LABS: Anion Gap 11 (12-20); Blood Urea Nitrogen 10 mg/dL (9-16); Calcium 8.4 mg/dL (8.4-10.2); Carbon Dioxide 20 mmol/L (22-29); Chloride 110 mmol/L (96-108); Creatinine Clr Calc Pharmacy 90.6; Estimated Glomerular Filt Rate > 60; Glucose Random 131 mg/dL (60-115); Potassium 4.2 mmol/L (3.3-5.1); Sodium 137 mmol/L (135-145)
== END 2022-07-12 17:06 | disposition left against medical advice (07) ==
PROVIDERS: Emergency Provider Emergency Medicine; PCP Nurse Practitioner Family
DX: R06.02 Shortness of breath (principal); Z79.899 Other long term (current) drug therapy
CPT/HCPCS: 36415; 80048; 85025; 99281; 99283

== ENCOUNTER 2022-07-19 11:33 | Day surgery (SDC) | payer OTHER, SELFPAY ==
--- NOTE | ~2022-07-19 | US_ITS ---
EXAMINATION: US ABDOMEN LIMITED CLINICAL INFORMATION: Unspecified cirrhosis of liver. COMPARISON: MRI abdomen 03/10/2022. Ultrasound abdomen limited 06/22/2021 and 07/31/2020. CT abdomen and pelvis 06/04/2021. TECHNIQUE: Real-time imaging of the abdomen. FINDINGS: There is a very small amount of ascites. Paracentesis was not performed. US/US abdomen limited IMPRESSION: Very small amount of ascites. Paracentesis not performed.
[2022-07-19 11:43] VITALS: BMI 36.9
[2022-07-19 13:50] VITALS: BP 123/67; PULSE 62; RESP 21; O2SAT 98
--- NOTE | 2022-07-19 13:53 | HO.RADPN ---
RADIOLOGY Narrative Narrative: No ascites. Paracentesis not performed.
== END 2022-07-19 14:14 | disposition home or self-care (01) ==
LOC: HO.SSS 11:33
PROVIDERS: PCP Nurse Practitioner Family; Visit Provider Radiology Diagnostic Radiology
DX: K74.60 Unspecified cirrhosis of liver (principal); K75.81 Nonalcoholic steatohepatitis (NASH)
CPT/HCPCS: 76705

== ENCOUNTER 2022-07-28 11:29 | Outpatient (REF) | payer OTHER, SELFPAY ==
[2022-07-28 11:49] LABS: MANUAL DIFF FLAG NO
[2022-07-28 13:42] LABS: Basophils Percent Auto 1.2 % (0-2); Eosinophils Absolute Auto 0.1 X10*3/uL (0.0-0.4); Eosinophils Percent Auto 1.9 % (0-4); Hematocrit 32.4 % (42.0-52.0); Hemoglobin 11.4 g/dl (14.0-18.0); Lymphocytes Absolute Auto 0.8 X10*3/uL (1.2-4.9); Lymphocytes Percent Auto 32.3 % (20-40); Mean Corpuscular HGB Conc 35.2 g/dl (31.0-36.0); Mean Corpuscular Hemoglobin 32.1 pg (27.0-33.0); Mean Corpuscular Volume 91.3 fL (80.0-98.0); Mean Platelet Volume 9.6 fL (9.4-12.4); Monocytes Absolute Auto 0.3 X10*3/uL (0.1-1.2); Neutrophils Absolute Auto 1.4 x10*3/uL (2.0-8.3); Neutrophils Percent Auto 54.6 % (45-73); Red Blood Count 3.55 X10*6/uL (4.60-5.80); Red Cell Distribution Width 17.8 % (11.0-16.0); White Blood Count 2.6 X10*3/uL (4.8-10.8)
[2022-07-28 13:57] LABS: INTERNATIONAL NORM RATIO 1.5 (0.9-1.1); Prothrombin Time 17.5 SEC (10.0-13.1)
[2022-07-28 14:02] LABS: Platelet Count 98 X10*3/uL (160-400)
[2022-07-28 14:40] LABS: Alanine Aminotransferase 123 U/L (0-40); Albumin Level 2.3 g/dL (3.5-5.0); Alkaline Phosphatase 305 U/L (39-117); Anion Gap 11 (12-20); Aspartate Amino Transferase 228 U/L (5-37); Bilirubin Total 4.4 mg/dL (0.0-1.0); Blood Urea Nitrogen 10 mg/dL (9-16); Calcium 8.1 mg/dL (8.4-10.2); Carbon Dioxide 19 mmol/L (22-29); Chloride 109 mmol/L (96-108); Estimated Glomerular Filt Rate > 60; Glucose Random 78 mg/dL (60-115); Potassium 4.2 mmol/L (3.3-5.1); Sodium 135 mmol/L (135-145); Total Protein 7.5 g/dL (6.5-8.0)
[2022-07-30 09:17] LABS: Carbohydrate Antigen 19-9 4 U/mL (<34)
== END 2022-07-28 11:30 | disposition home or self-care (01) ==
LOC: HO.LABR 11:29
PROVIDERS: PCP Nurse Practitioner Family; Visit Provider Physician Assistant
DX: K83.01 Primary sclerosing cholangitis (principal)
CPT/HCPCS: 36415; 80053; 82105; 85025; 85610; 86301

== ENCOUNTER 2022-08-03 07:46 | Outpatient (REF) | payer OTHER, SELFPAY | END 2022-08-03 07:47 | disposition home or self-care (01) | LOC: HO.MDS 07:46 | PROVIDERS: Visit Provider Internal Medicine Gastroenterology | DX: K51.90 Ulcerative colitis, unspecified, without complications (principal) | CPT/HCPCS: 96413; 96415; Q5103 ==

== ENCOUNTER → 2022-09-13 14:00 | Outpatient (REF) | payer OTHER, SELFPAY ==
--- NOTE | 2022-09-13 14:02 | CA_ITS ---
Transthoracic Echocardiogram Patient (Last, First, Middle): Yaya Howell, Gender: Male Date of : 1965 Age: 56 Procedure Date: 09/13/2022 Procedure Type: Transthoracic Echocardiogram Location: OP Height: 175.26 cm Weight: 107.05 kg BSA: 2.22 m2 Heart Rate: bpm BP: 115 / 62 mmHg Audit Specialist: TO Referring MD: Serina Peralta MD [facility] Radar Operator/Navigator: Sidney Burgess MD Symptoms: R60.9 - Edema, unspecified Study Quality: Fair ECG Rhythm: Sinus Conclusions: - 1. Normal LV systolic function with grade 1 diastolic dysfunction 2. No significant abnormality of cardiac valvular Doppler 3. Normal RV systolic pressure 4. No gross pericardial effusion Findings Left Ventricle Normal left ventricular size, thickness, and systolic function. The visually estimated ejection fraction is between 60-65%. Spectral Doppler is indicative of an impaired relaxation filling pattern. E/E prime ratio is <8, consistent with normal filling pressures. Right Ventricle Normal right ventricular cavity size and systolic function. Atria Both atria are normal in size. There is no evidence of interatrial shunt. Aortic Valve Normal aortic valve structure and function. There is no aortic valve stenosis. There is no aortic valve regurgitation. Mitral Valve Normal mitral valve structure and function. There is trace mitral valve regurgitation. There is no mitral valve stenosis. Pulmonic Valve The pulmonic valve is likely normal. There is mild pulmonic valve regurgitation. Tricuspid Valve Normal tricuspid valve structure. There is trace tricuspid valve regurgitation. The right ventricular systolic pressure is normal. The right ventricular systolic pressure is 21 mmHg. Normal right atrial pressure. There is no evidence of pulmonary hypertension. Great Vessels All visible segments of the aorta are normal in size. The pulmonary artery was not well visualized. Venous The inferior vena cava is normal in size and collapses greater than 50% with inspiration. Pericardium/Pleural There is no evidence of pericardial effusion. Prior Study Comparison No significant change compared to prior study dated: 01/22/2021. Measurements 2D Linear Measurements IVSd: 1.28 0.6-0.9/0.6-1.0 cm LVIDd: 4.60 3.9-5.3/4.2-5.9 cm LVIDd Index: 2.07 2.4-3.2/2.2-3.1 cm/m2 LVIDs: 2.24 2.0-3.6 cm LVPWd: 1.18 0.7-1.1 cm LA Diam: 3.90 2.7-3.8/3.0-4.0 cm LAIDs Index: 1.76 1.5-2.3 cm/m2 LV Mass: 264.74 67-162/88-224 g LV Mass Index: 119.25 43-95/49-115 g/m2 LVOT Diam: 2.10 3.0+(-)1.3 cm 2D Systolic Function EF 4C: 63.40 >55% EF 2C: 62.10 >55% EF BiP: 63.40 >55% Mitral Valve MV Pk E: 0.83 MV PK A: 0.84 MV Decel Time: 306.00 E/A: 1.00 E'Lateral: 13.60 E'Medial: 7.83 E/E' Med: 10.60 E/E' Lat: 6.10 PHT: 90.00 MVA PHT: 2.44 Decel [place]: 2.71 Aortic Valve AoV Pk Omar: 1.72 AoV Mn Omar: 1.14 AoV VTI: 0.36 AoV Pk Grad: 12.00 Aov Mn Grad: 6.00 ROSELIA Cont.VTI: 2.43 LVOT LVOT Pk Omar: 1.22 LVOT Mn Omar: 0.73 LVOT VTI: 0.25 LVOT Pk Grad: 6.00 LVOT Mn Grad: 3.00 LVOT Diam: 2.10 LVOT Area: 3.46 Diastolic Function MV Pk E: 0.83 MV Pk A: 0.84 E/A: 1.00 E'Medial: 7.83 E/E' Med: 10.60 E' Laterial: 13.60 E/E' Lat: 6.10 Right Ventricle TAPSE (mm): 28.10 TVS' Omar: 16.00 Tricuspid Valve TR Pk Omar: 2.13 TR Pk Grad: 18.00 RA Press: 3.00 RVSP: 21.00 Great Vessels Aorta Sinus of Valsalva: 3.62 2.0-3.5 cm Ao Asc: 3.10 2.1-3.4 cm Updated in Other Vendor System with Status of Final Sidney Burgess MD electronically signed on 09/13/2022 6:05:55 PM with status of Final
== END ==
LOC: HO.CARD 14:00
PROVIDERS: Visit Provider Internal Medicine Gastroenterology
DX: R60.9 Edema, unspecified (principal)
CPT/HCPCS: 93306

== ENCOUNTER 2022-09-16 11:38 | Outpatient (REF) | payer OTHER, SELFPAY ==
[2022-09-16 11:52] LABS: MANUAL DIFF FLAG NO
[2022-09-16 12:16] LABS: Basophils Percent Auto 0.9 % (0-2); Eosinophils Absolute Auto 0.1 X10*3/uL (0.0-0.4); Eosinophils Percent Auto 5.2 % (0-4); Hematocrit 32.2 % (42.0-52.0); Hemoglobin 11.2 g/dl (14.0-18.0); Lymphocytes Absolute Auto 0.7 X10*3/uL (1.2-4.9); Lymphocytes Percent Auto 29.6 % (20-40); Mean Corpuscular HGB Conc 34.8 g/dl (31.0-36.0); Mean Corpuscular Hemoglobin 32.1 pg (27.0-33.0); Mean Corpuscular Volume 92.3 fL (80.0-98.0); Mean Platelet Volume 9.2 fL (9.4-12.4); Monocytes Absolute Auto 0.3 X10*3/uL (0.1-1.2); Monocytes Percent Auto 11.2 % (2-11); Neutrophils Absolute Auto 1.2 x10*3/uL (2.0-8.3); Neutrophils Percent Auto 53.1 % (45-73); Red Blood Count 3.49 X10*6/uL (4.60-5.80); Red Cell Distribution Width 17.7 % (11.0-16.0)
[2022-09-16 12:23] LABS: Platelet Count 83 X10*3/uL (160-400); White Blood Count 2.3 X10*3/uL (4.8-10.8)
[2022-09-16 12:25] LABS: INTERNATIONAL NORM RATIO 1.5 (0.9-1.1); Prothrombin Time 17.4 SEC (10.0-13.1)
[2022-09-16 12:51] LABS: Alanine Aminotransferase 64 U/L (0-40); Albumin Level 2.1 g/dL (3.5-5.0); Alkaline Phosphatase 322 U/L (39-117); Anion Gap 11 (12-20); Aspartate Amino Transferase 130 U/L (5-37); Bilirubin Total 3.4 mg/dL (0.0-1.0); Blood Urea Nitrogen 9 mg/dL (9-16); Carbon Dioxide 20 mmol/L (22-29); Chloride 111 mmol/L (96-108); Estimated Glomerular Filt Rate > 60; Glucose Random 131 mg/dL (60-115); Potassium 4.3 mmol/L (3.3-5.1); Sodium 138 mmol/L (135-145)
[2022-09-21 06:22] LABS: Zinc 25 mcg/dL (60-130)
== END 2022-09-16 11:39 | disposition home or self-care (01) ==
LOC: HO.LAB 11:38
PROVIDERS: PCP Nurse Practitioner Family; Visit Provider Internal Medicine Gastroenterology
DX: K74.60 Unspecified cirrhosis of liver (principal); K75.81 Nonalcoholic steatohepatitis (NASH); A41.9 Sepsis, unspecified organism
CPT/HCPCS: 36415; 80053; 84630; 85025; 85610

== ENCOUNTER 2022-09-26 12:02 | Outpatient (REF) | payer OTHER, SELFPAY ==
[2022-09-26 13:17] LABS: Eosinophils Absolute Auto 0.1 X10*3/uL (0.0-0.4); Eosinophils Percent Auto 4.2 % (0-4); Hematocrit 32.9 % (42.0-52.0); Hemoglobin 11.1 g/dl (14.0-18.0); Lymphocytes Absolute Auto 0.6 X10*3/uL (1.2-4.9); Lymphocytes Percent Auto 31.9 % (20-40); MANUAL DIFF FLAG SCAN; Mean Corpuscular HGB Conc 33.7 g/dl (31.0-36.0); Mean Corpuscular Hemoglobin 31.3 pg (27.0-33.0); Mean Corpuscular Volume 92.7 fL (80.0-98.0); Mean Platelet Volume 9.6 fL (9.4-12.4); Monocytes Absolute Auto 0.2 X10*3/uL (0.1-1.2); Monocytes Percent Auto 9.4 % (2-11); Neutrophils Percent Auto 53.5 % (45-73); Red Blood Count 3.55 X10*6/uL (4.60-5.80); Red Cell Distribution Width 17.9 % (11.0-16.0); SCAN SMEAR FLAG 1
[2022-09-26 13:20] LABS: White Blood Count 1.9 X10*3/uL (4.8-10.8)
[2022-09-26 13:43] LABS: Platelet Count 95 X10*3/uL (160-400)
[2022-09-26 13:44] LABS: SLIDE REVIEW VERIFIED
[2022-09-26 13:46] LABS: Alanine Aminotransferase 61 U/L (0-40); Alkaline Phosphatase 318 U/L (39-117); Anion Gap 12 (12-20); Aspartate Amino Transferase 128 U/L (5-37); Bilirubin Total 3.3 mg/dL (0.0-1.0); Blood Urea Nitrogen 9 mg/dL (9-16); Calcium 7.9 mg/dL (8.4-10.2); Carbon Dioxide 19 mmol/L (22-29); Chloride 108 mmol/L (96-108); Estimated Glomerular Filt Rate > 60; Glucose Random 172 mg/dL (60-115); Potassium 4.2 mmol/L (3.3-5.1); Sodium 135 mmol/L (135-145); Total Protein 6.8 g/dL (6.5-8.0)
[2022-09-26 14:09] LABS: INTERNATIONAL NORM RATIO 1.5 (0.9-1.1); Prothrombin Time 17.7 SEC (10.0-13.1)
[2022-09-27 09:02] LABS: Carbohydrate Antigen 19-9 <3 U/mL (<34)
[2022-09-27 13:52] LABS: Alpha Fetoprotein 1.3 ng/mL (<6.1)
== END 2022-09-26 12:03 | disposition home or self-care (01) ==
LOC: HO.LABR 12:02
PROVIDERS: PCP Nurse Practitioner Family; Visit Provider Physician Assistant
DX: K83.01 Primary sclerosing cholangitis (principal)
CPT/HCPCS: 36415; 80053; 82105; 85025; 85610; 86301

== ENCOUNTER 2022-09-28 13:27 | Day surgery (SDC) | payer OTHER, SELFPAY ==
--- NOTE | 2022-09-26 12:15 | HO.ANESPROP2 ---
Documented by User: Noemí Reid NP 09/26/22 12:17 HPI - Anesthesia Eval Consult details Narrative: 56yo M for Upper Endoscopy and Colonoscopy ETOH with advanced cirrhosis and coagulopathy [facility] Active Problems Active Problems: All Active Problems (Updated 07/20/22 @ 14:48 by Serina Peralta MD) Edema (Acute) Major depression, recurrent, chronic (Acute) Advanced hepatic cirrhosis (Acute) Overgrown toenails (Acute) Hepatorenal syndrome (Acute) Bacteremia due to Enterobacter species (Acute) Sepsis (Acute) Colitis (Acute) Acute sinusitis (Acute) Cough (Acute) Elevated blood sugar level (Acute) Hypomagnesemia (Acute) Hepatic encephalopathy (Acute) Cholestatic pruritus (Acute) Physical exam (Acute) Screening PSA (prostate specific antigen) (Acute) Murmur, heart (Acute) Vegetarian (Acute) Hypoalbuminemia (Acute) Coagulopathy (Acute) 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 (Acute) Past Medical History 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 Ulcerative colitis Family History Family History Sister History of liver cancer Surgical History Surgical History History of esophagogastroduodenoscopy (EGD) Hx of colonoscopy Social History Social History Household Members: Spouse Household Members Other:: 2 Housing: House Do you presently have visiting nurse or other home services: No Alcohol intake: never Patient Tobacco Use Status: Current someday Tobacco user Tobacco use type: Cigar e-Cigarette/Vaping Use: Never Used Second Hand Smoke Exposure: No Use of substances other than those prescribed or required for medical reasons: No Are you DNR?: No Advance Directives: Yes Advance Directives Information Provided: No Advance Directives on File: Yes Advance Directives Date on File: 12/31/21 service: No Current occupational status: disabled Cognitive needs: No Hearing needs: No Vision needs: No Meds Allergies Allergy/AdvReac Type Severity Reaction Status Date / Time No Known Allergies Allergy Verified 03/15/22 17:37 [No Known Allergies*] Home Medications Medication Instructions Recorded Confirmed Last Taken Type vedolizumab 300 mg intravenous 300 mg IV Q8W 06/04/21 03/15/22 Unknown History solution (Entyvio) spironolactone 50 mg tablet 50 mg PO DAILY 12/30/21 03/15/22 Unknown History ciprofloxacin HCl 500 mg tablet 500 mg PO ONCE 01/17/22 03/15/22 Unknown History ergocalciferol (vitamin D2) 1,250 1,250 mcg PO QWEEK 02/14/22 03/15/22 Unknown History mcg (50,000 unit) capsule Exam Exam Date and Time: September 26, 2022 1215 Pertinent Lab Results Pertinent Lab Results: Laboratory Tests 09/16/22 11:51 Sodium 138 Potassium 4.3 Chloride 111 H Carbon Dioxide 20 L BUN 9 Creatinine 1.08 Narrative Narrative: ECHO 08/2022 Conclusions: - 1.? Normal LV systolic function with grade 1 diastolic ? dysfunction? 2.? No significant abnormality of cardiac valvular Doppler ? ? ? 3.? Normal RV systolic pressure? 4.? No gross pericardial effusion?? Documented by User: Jessica Borrego MD 09/28/22 14:32 [facility] Past Medical History 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 Ulcerative colitis Functional capacity: independent ambulation Family History Family History Sister History of liver cancer Family history of problems with anesthesia: No Surgical History Surgical History History of esophagogastroduodenoscopy (EGD) Hx of colonoscopy History of Problems with Anesthesia: No Social History Social History Household Members: Spouse Household Members Other:: 2 Housing: House Do you presently have visiting nurse or other home services: No Alcohol intake: never Patient Tobacco Use Status: Current someday Tobacco user Tobacco use type: Cigar e-Cigarette/Vaping Use: Never Used Second Hand Smoke Exposure: No Use of substances other than those prescribed or required for medical reasons: No Are you DNR?: No Advance Directives: Yes Advance Directives Information Provided: No Advance Directives on File: Yes Advance Directives Date on File: 12/31/21 service: No Current occupational status: disabled Cognitive needs: No Hearing needs: No Vision needs: No Meds Allergies Allergy/AdvReac Type Severity Reaction Status Date / Time No Known Allergies Allergy Verified 03/15/22 17:37 [No Known Allergies*] Home Medications Medication Instructions Recorded Confirmed Last Taken Type vedolizumab 300 mg intravenous 300 mg IV Q8W 06/04/21 03/15/22 Unknown History solution (Entyvio) spironolactone 50 mg tablet 50 mg PO DAILY 12/30/21 03/15/22 Unknown History ciprofloxacin HCl 500 mg tablet 500 mg PO ONCE 01/17/22 03/15/22 Unknown History ergocalciferol (vitamin D2) 1,250 1,250 mcg PO QWEEK 02/14/22 03/15/22 Unknown History mcg (50,000 unit) capsule Exam Airway Mallampati Class: II TM Dist: >3cm Heart: RRR Lungs: CTA Assessment and Plan Final Anesthetic Review Family History of Problems with Anesthesia: No History of Problems with Anesthesia: No NPO: Yes ASA Class: III Final Preanesthetic Review: No Changes in Pt Med Stat, Meds/Allgs Chart Reviewed, Consent Obtained/Reviewed and Anes Risks/Benef Reviewed Patient Risk: Intermediate Procedure Risk: Low Anesthetic Plan Anesthetic Plan: MAC: Disposition: Standard PACU
--- NOTE | 2022-09-28 13:56 | MHC.SHP ---
Pre-Procedural Eval Section A Date of Service: 09/28/22 The patient is an INPATIENT: No The History & Physical has been completed within 30 days and I have reviewed it.: Yes Section B Chief Complaint: cirrhosis of liver,sepsis Allergies: Allergies Allergy/AdvReac Type Severity Reaction Status Date / Time No Known Allergies Allergy Verified 03/15/22 17:37 [No Known Allergies*] Plan Diagnosis/Plan: Unchanged I have reviewed the history and physical and performed a pertinent physical examination on my patient. No changes have occurred unless specified.
[2022-09-28 14:16] VITALS: BP 124/64; PULSE 61; RESP 18; TEMP 36.3; O2SAT 99
[2022-09-28] MEDS: Lactated Ringers 1,000 ML 100 ML IVCONT (14:20)
--- NOTE | 2022-09-28 14:22 | P.OP_ITS ---
Operative Note Operative Note Date of Service: 09/28/22 Narrative: Operative Information Procedure Description: EGD, Colonoscopy Indication: variceal screening, colon cancer screening Anesthesia: MAC FLEXIBLE TRANSORAL UPPER GASTROINTESTINAL ENDOSCOPY AND COLONOSCOPY PROCEDURE NOTE UPPER ENDOSCOPY Consent: Indications for the procedure and potential complications of bleeding, perforation, reaction to medications and missed diagnosis were discussed with the patient and informed consent was obtained. Instrument: Olympus GIF H 190 J mid size upper endoscope Monitoring: Vital signs and clinical assessment, continuous EKG monitoring, Pulse oximetry, Carbon Dioxide monitoring and blood pressure monitoring were done throughout the procedure. Procedure: The patient was placed in the left lateral decubitis position and pre-procedure medications were administered and a bite block was placed. The endoscope was inserted into the mouth and advanced under direct vision to the third part of duodenum. A careful inspection was made as the upper endoscope was withdrawn including a retroflexed examination of the proximal stomach; Findings and interventions are described below. Findings: Larynx:normal Esophagus: GE junction at 40 cm, diaphragm hiatus at 40 cm, x 2 cords of flat varices noted, grade I, no red mcghee Stomach: Mosaic pattern to mucosa consistent with portal hypertensive gastropathy. Grade 2 flap valve on retroflexed examination of the cardia. no gastric varices seen Duodenum: congestive enteropathy noted Intervention: none COLONOSCOPY Instrument: Olympus variable stiffness adult scope 190L Colonoscopy Monitoring: Vital signs and clinical assessment, continuous EKG monitoring, Pulse oximetry, Carbon Dioxide monitoring and blood pressure monitoring were done throughout the procedure. Colon withdrawal time was 12 minutes. Procedure: The patient was placed in the left lateral decubitis position and pre-procedure medications were administered. After a digital rectal examination of the ano-rectum, the video colonoscope was inserted into the rectum and advanced through the colon to the cecum/TI. The colonoscope was slowly withdrawn in a retrograde panoramic fashion and the colon mucosa was carefully examined including a retroflexed view of the rectum. Findings and interventions are described below. Procedure Difficulty:easy Findings: Featureless mucosa, so called lead pipe colon, Terminal Ileum-normal, bx taken b xtaken from right, transverse, left and rectum in separate jars. Cecum:scarred mucosa Ascending Colon: mild patchy erythema and featureless mucosa Transverse Colon - mild patchy erythema and featureless mucosa Descending Colon: scarred mucosa, with healing erosion here and there Sigmoid Colon: 6-8 mm sessile polyp removed with cold forceps, few diverticula seen Rectum: Retroflexion with small internal hemorrhoids, grade I, rectum with featureless tissue, scarring Anorectum - normal Colon preparation: [place] Bowel Preparation Scale Right colon; 2 Transverse colon: 2 Left colon; 2 (0 = Unprepared colon segment with mucosa not seen due to solid stool that cannot be cleared. 1 = Portion of mucosa of the colon segment seen, but other areas of the colon segment not well seen due to staining, residual stool and/or opaque liquid. 2 = Minor amount of residual staining, small fragments of stool and/or opaque liquid, but mucosa of colon segment seen well. 3 = Entire mucosa of colon segment seen well with no residual staining, small fragments of stool or opaque liquid) Impression and Post Procedure Diagnosis: Endoscopy Findings: portal hypertensive gastropathy enteropathy small varices Colonoscopy Findings: polyp internal hemorrhoids diverticular disease features of chronic colitis and sequelae of healing Plan: Await Pathology results Repeat Colonoscopy in 1 year or earlier if clinically indicated, next time will schedule with chromoendoscopy High fiber diet leaflet avoid straining at stool, epsom salts and sitz bath, anusol supps or cream repeat EGD in 1 year Above findings were reviewed with the patient and relevant handouts were provided if indicated.
[2022-09-28 15:22] VITALS: BP 115/65; PULSE 60; RESP 16; TEMP 36.1; O2SAT 99
--- NOTE | 2022-09-28 15:23 | HO.POSTANES ---
Post Anesthesia Evaluation Post Anesthesia Evaluation Vital Signs: Vital Signs Temp Pulse Resp BP Pulse Ox O2 Del Method 09/28/22 14:16 97.4 F 61 18 124/64 99 Room Air Anesthesia: Monitored Mental Status: Awake Pain Control: Satisfactory Nausea/Vomiting: None Hydration: Adequate Anesthesia-Related Issues: No Anes. Related Issues
[2022-09-28 15:37] VITALS: BP 128/74; PULSE 58; RESP 16; TEMP 36.6; O2SAT 100
== END 2022-09-28 15:55 | disposition home or self-care (01) ==
PROVIDERS: PCP Nurse Practitioner Family; Visit Provider Internal Medicine Gastroenterology
PROC: (CPT 45380; principal; 2022-09-28 14:40)
DX: Z12.11 Encounter for screening for malignant neoplasm of colon (principal); K63.5 Polyp of colon; K57.30 Diverticulosis of large intestine without perforation or abscess without bleeding; K64.0 First degree hemorrhoids; K62.89 Other specified diseases of anus and rectum; K52.9 Noninfective gastroenteritis and colitis, unspecified; K76.6 Portal hypertension; K31.89 Other diseases of stomach and duodenum; I85.00 Esophageal varices without bleeding; K74.60 Unspecified cirrhosis of liver; A41.9 Sepsis, unspecified organism; K44.9 Diaphragmatic hernia without obstruction or gangrene; K75.81 Nonalcoholic steatohepatitis (NASH); F10.10 Alcohol abuse, uncomplicated; F17.200 Nicotine dependence, unspecified, uncomplicated
CPT/HCPCS: 45380; 43235; 88305

== ENCOUNTER 2022-10-04 13:49 | Outpatient (REF) | payer OTHER, SELFPAY | END 2022-10-04 13:50 | disposition home or self-care (01) | LOC: HO.LABR 13:49 | PROVIDERS: Absent Provider Physician Assistant; PCP Nurse Practitioner Family; Visit Provider Internal Medicine Gastroenterology | DX: K52.9 Noninfective gastroenteritis and colitis, unspecified (principal); K83.01 Primary sclerosing cholangitis | CPT/HCPCS: 80280; 82542 ==

== ENCOUNTER 2022-10-05 08:38 | Outpatient (REF) | payer OTHER, SELFPAY | END 2022-10-05 08:39 | disposition home or self-care (01) | LOC: HO.MDS 08:38 | PROVIDERS: Visit Provider Internal Medicine Gastroenterology | DX: K51.90 Ulcerative colitis, unspecified, without complications (principal) | CPT/HCPCS: 96413; 96415; Q5103 ==

== ENCOUNTER 2022-10-27 08:38 | Outpatient (REF) | payer OTHER, SELFPAY ==
[2022-10-27 09:02] LABS: MANUAL DIFF FLAG NO
[2022-10-27 09:23] LABS: Basophils Percent Auto 1.1 % (0-2); Eosinophils Percent Auto 0.4 % (0-4); Hemoglobin 11.3 g/dl (14.0-18.0); Lymphocytes Absolute Auto 0.7 X10*3/uL (1.2-4.9); Lymphocytes Percent Auto 27.1 % (20-40); Mean Corpuscular HGB Conc 34.2 g/dl (31.0-36.0); Mean Corpuscular Hemoglobin 30.6 pg (27.0-33.0); Mean Corpuscular Volume 89.4 fL (80.0-98.0); Mean Platelet Volume 9.4 fL (9.4-12.4); Monocytes Absolute Auto 0.3 X10*3/uL (0.1-1.2); Monocytes Percent Auto 10.8 % (2-11); Neutrophils Absolute Auto 1.6 x10*3/uL (2.0-8.3); Neutrophils Percent Auto 60.6 % (45-73); Red Blood Count 3.69 X10*6/uL (4.60-5.80); Red Cell Distribution Width 18.6 % (11.0-16.0); White Blood Count 2.7 X10*3/uL (4.8-10.8)
[2022-10-27 09:26] LABS: INTERNATIONAL NORM RATIO 1.6 (0.9-1.1); Prothrombin Time 18.6 SEC (10.0-13.1)
[2022-10-27 09:28] LABS: Platelet Count 87 X10*3/uL (160-400)
[2022-10-27 10:05] LABS: Alanine Aminotransferase 50 U/L (0-40); Albumin Level 1.9 g/dL (3.5-5.0); Alkaline Phosphatase 228 U/L (39-117); Aspartate Amino Transferase 103 U/L (5-37); Bilirubin Total 3.2 mg/dL (0.0-1.0); Blood Urea Nitrogen 12 mg/dL (9-16); Calcium 8.2 mg/dL (8.4-10.2); Estimated Glomerular Filt Rate > 60; Glucose Random 172 mg/dL (60-115); Total Protein 7.1 g/dL (6.5-8.0)
[2022-10-27 10:15] LABS: Anion Gap 12 (12-20); Carbon Dioxide 20 mmol/L (22-29); Chloride 108 mmol/L (96-108); Potassium 3.9 mmol/L (3.3-5.1); Sodium 136 mmol/L (135-145)
[2022-10-29 08:42] LABS: Carbohydrate Antigen 19-9 3 U/mL (<34)
[2022-10-31 13:59] LABS: Alpha Fetoprotein 1.4 ng/mL (<6.1)
== END 2022-10-27 08:39 | disposition home or self-care (01) ==
LOC: HO.LABR 08:38
PROVIDERS: PCP Nurse Practitioner Family; Visit Provider Physician Assistant
DX: K83.01 Primary sclerosing cholangitis (principal)
CPT/HCPCS: 36415; 80053; 82105; 85025; 85610; 86301

== ENCOUNTER 2022-11-30 13:02 | Outpatient (REF) | payer OTHER, MEDICAID, SELFPAY ==
[2022-11-30 14:27] LABS: INTERNATIONAL NORM RATIO 1.5 (0.9-1.1); Prothrombin Time 17.8 SEC (10.0-13.1)
[2022-11-30 14:39] LABS: Basophils Percent Auto 1.3 % (0-2); Eosinophils Absolute Auto 0.1 X10*3/uL (0.0-0.4); Eosinophils Percent Auto 2.6 % (0-4); Hematocrit 31.7 % (42.0-52.0); Hemoglobin 11.2 g/dl (14.0-18.0); Imm Gran Abs Auto 0.01 X10*3/uL (0.00-0.03); Imm Gran Pct Auto 0.4 % (0.0-0.4); Lymphocytes Absolute Auto 0.6 X10*3/uL (1.2-4.9); Lymphocytes Percent Auto 27.4 % (20-40); MANUAL DIFF FLAG SCAN; Mean Corpuscular HGB Conc 35.3 g/dl (31.0-36.0); Mean Corpuscular Hemoglobin 31.8 pg (27.0-33.0); Mean Corpuscular Volume 90.1 fL (80.0-98.0); Mean Platelet Volume 9.4 fL (9.4-12.4); Monocytes Absolute Auto 0.3 X10*3/uL (0.1-1.2); Monocytes Percent Auto 14.5 % (2-11); Neutrophils Absolute Auto 1.3 x10*3/uL (2.0-8.3); Neutrophils Percent Auto 53.8 % (45-73); Platelet Count 96 X10*3/uL (160-400); Red Blood Count 3.52 X10*6/uL (4.60-5.80); Red Cell Distribution Width 18.4 % (11.0-16.0); SCAN SMEAR FLAG 1; White Blood Count 2.3 X10*3/uL (4.8-10.8)
[2022-11-30 14:56] LABS: Alanine Aminotransferase 50 U/L (0-40); Albumin Level 1.8 g/dL (3.5-5.0); Alkaline Phosphatase 249 U/L (39-117); Anion Gap 8 (12-20); Aspartate Amino Transferase 98 U/L (5-37); Bilirubin Total 3.9 mg/dL (0.0-1.0); Blood Urea Nitrogen 11 mg/dL (9-16); Calcium 8.2 mg/dL (8.4-10.2); Carbon Dioxide 25 mmol/L (22-29); Chloride 105 mmol/L (96-108); Estimated Glomerular Filt Rate > 60; Glucose Random 140 mg/dL (60-115); Potassium 3.6 mmol/L (3.3-5.1); Sodium 134 mmol/L (135-145); Total Protein 7.1 g/dL (6.5-8.0)
[2022-11-30 14:57] LABS: SLIDE REVIEW VERIFIED
[2022-12-02 10:29] LABS: Carbohydrate Antigen 19-9 5 U/mL (<34)
[2022-12-02 13:48] LABS: Alpha Fetoprotein 1.2 ng/mL (<6.1)
== END 2022-11-30 13:03 | disposition home or self-care (01) ==
LOC: HO.LABR 13:02
PROVIDERS: PCP Nurse Practitioner Family; Visit Provider Physician Assistant
DX: K83.01 Primary sclerosing cholangitis (principal)
CPT/HCPCS: 36415; 80053; 82105; 85025; 85610; 86301

== ENCOUNTER 2022-12-07 08:45 | Outpatient (REF) | payer OTHER, MEDICAID, SELFPAY | END 2022-12-07 08:46 | disposition home or self-care (01) | LOC: HO.MDS 08:45 | PROVIDERS: Visit Provider Internal Medicine Gastroenterology | DX: K51.90 Ulcerative colitis, unspecified, without complications (principal) | CPT/HCPCS: 96365; J3380 ==

== ENCOUNTER 2022-12-21 11:59 | Outpatient (REF) | payer OTHER, SELFPAY | END 2022-12-21 12:00 | disposition home or self-care (01) | LOC: HO.MDS 11:59 | PROVIDERS: Visit Provider Internal Medicine Gastroenterology | DX: K51.90 Ulcerative colitis, unspecified, without complications (principal) | CPT/HCPCS: 96365; J3380 ==

== ENCOUNTER 2022-12-29 09:10 | Outpatient (REF) | payer OTHER, MEDICAID, SELFPAY ==
[2022-12-29 09:25] LABS: MANUAL DIFF FLAG NO
[2022-12-29 09:48] LABS: Basophils Percent Auto 1.4 % (0-2); Eosinophils Absolute Auto 0.4 X10*3/uL (0.0-0.4); Eosinophils Percent Auto 12.5 % (0-4); Hematocrit 31.5 % (42.0-52.0); Hemoglobin 10.8 g/dl (14.0-18.0); Imm Gran Abs Auto 0.01 X10*3/uL (0.00-0.03); Imm Gran Pct Auto 0.3 % (0.0-0.4); Lymphocytes Absolute Auto 0.7 X10*3/uL (1.2-4.9); Lymphocytes Percent Auto 23.4 % (20-40); Mean Corpuscular HGB Conc 34.3 g/dl (31.0-36.0); Mean Corpuscular Hemoglobin 31.9 pg (27.0-33.0); Mean Corpuscular Volume 92.9 fL (80.0-98.0); Mean Platelet Volume 8.7 fL (9.4-12.4); Monocytes Absolute Auto 0.4 X10*3/uL (0.1-1.2); Monocytes Percent Auto 13.2 % (2-11); Neutrophils Absolute Auto 1.5 x10*3/uL (2.0-8.3); Neutrophils Percent Auto 49.2 % (45-73); Platelet Count 116 X10*3/uL (160-400); Red Blood Count 3.39 X10*6/uL (4.60-5.80); Red Cell Distribution Width 17.2 % (11.0-16.0)
[2022-12-29 09:53] LABS: INTERNATIONAL NORM RATIO 1.6 (0.9-1.1); Prothrombin Time 18.1 SEC (10.0-13.1)
[2022-12-29 10:53] LABS: Alanine Aminotransferase 27 U/L (0-40); Albumin Level 1.8 g/dL (3.5-5.0); Alkaline Phosphatase 249 U/L (39-117); Anion Gap 9 (12-20); Aspartate Amino Transferase 56 U/L (5-37); Bilirubin Total 3.2 mg/dL (0.0-1.0); Blood Urea Nitrogen 9 mg/dL (9-16); Calcium 7.9 mg/dL (8.4-10.2); Carbon Dioxide 20 mmol/L (22-29); Chloride 111 mmol/L (96-108); Estimated Glomerular Filt Rate > 60; Glucose Random 107 mg/dL (60-115); Potassium 4.2 mmol/L (3.3-5.1); Sodium 136 mmol/L (135-145)
[2023-01-03 13:54] LABS: Alpha Fetoprotein 1.9 ng/mL (<6.1); Carbohydrate Antigen 19-9 3 U/mL (<34)
== END 2022-12-29 09:11 | disposition home or self-care (01) ==
LOC: HO.LABR 09:10
PROVIDERS: PCP Nurse Practitioner Family; Visit Provider Physician Assistant
DX: K83.01 Primary sclerosing cholangitis (principal)
CPT/HCPCS: 36415; 80053; 82105; 85025; 85610; 86301

== ENCOUNTER 2023-01-24 08:39 | Outpatient (REF) | payer OTHER, SELFPAY | END 2023-01-24 08:40 | disposition home or self-care (01) | LOC: HO.MDS 08:39 | PROVIDERS: Visit Provider Internal Medicine Gastroenterology | DX: K51.90 Ulcerative colitis, unspecified, without complications (principal) | CPT/HCPCS: 96365; J3380 ==

== ENCOUNTER 2023-01-25 10:59 | Outpatient (REF) | payer OTHER, MEDICAID, SELFPAY ==
[2023-01-25 11:22] LABS: MANUAL DIFF FLAG NO
[2023-01-25 11:40] LABS: INTERNATIONAL NORM RATIO 1.5 (0.9-1.1); Prothrombin Time 17.5 SEC (10.0-13.1)
[2023-01-25 11:47] LABS: Eosinophils Absolute Auto 0.2 X10*3/uL (0.0-0.4); Eosinophils Percent Auto 6.8 % (0-4); Hematocrit 31.9 % (42.0-52.0); Hemoglobin 11.1 g/dl (14.0-18.0); Imm Gran Abs Auto 0.01 X10*3/uL (0.00-0.03); Imm Gran Pct Auto 0.3 % (0.0-0.4); Lymphocytes Absolute Auto 0.9 X10*3/uL (1.2-4.9); Lymphocytes Percent Auto 28.1 % (20-40); Mean Corpuscular HGB Conc 34.8 g/dl (31.0-36.0); Mean Corpuscular Hemoglobin 31.9 pg (27.0-33.0); Mean Corpuscular Volume 91.7 fL (80.0-98.0); Monocytes Absolute Auto 0.4 X10*3/uL (0.1-1.2); Monocytes Percent Auto 12.9 % (2-11); Neutrophils Absolute Auto 1.6 x10*3/uL (2.0-8.3); Neutrophils Percent Auto 50.9 % (45-73); Platelet Count 101 X10*3/uL (160-400); Red Blood Count 3.48 X10*6/uL (4.60-5.80); Red Cell Distribution Width 15.3 % (11.0-16.0); White Blood Count 3.1 X10*3/uL (4.8-10.8)
[2023-01-25 12:31] LABS: Alanine Aminotransferase 28 U/L (0-40); Albumin Level 1.8 g/dL (3.5-5.0); Alkaline Phosphatase 264 U/L (39-117); Anion Gap 7 (12-20); Aspartate Amino Transferase 60 U/L (5-37); Bilirubin Total 3.4 mg/dL (0.0-1.0); Blood Urea Nitrogen 9 mg/dL (9-16); Calcium 7.8 mg/dL (8.4-10.2); Carbon Dioxide 21 mmol/L (22-29); Chloride 112 mmol/L (96-108); Estimated Glomerular Filt Rate > 60; Glucose Random 130 mg/dL (60-115); Potassium 4.4 mmol/L (3.3-5.1); Sodium 136 mmol/L (135-145); Total Protein 6.9 g/dL (6.5-8.0)
[2023-01-28 09:24] LABS: Carbohydrate Antigen 19-9 6 U/mL (<34)
[2023-01-30 13:18] LABS: Alpha Fetoprotein 2.1 ng/mL (<6.1)
== END 2023-01-25 11:00 | disposition home or self-care (01) ==
LOC: HO.LAB 10:59
PROVIDERS: PCP Nurse Practitioner Family; Visit Provider Physician Assistant
DX: K83.01 Primary sclerosing cholangitis (principal)
CPT/HCPCS: 36415; 80053; 82105; 85025; 85610; 86301

== ENCOUNTER 2023-02-28 09:06 | Outpatient (REF) | payer OTHER, SELFPAY ==
[2023-02-28 09:33] LABS: MANUAL DIFF FLAG NO
[2023-02-28 10:42] LABS: Basophils Percent Auto 0.8 % (0-2); Eosinophils Absolute Auto 0.2 X10*3/uL (0.0-0.4); Eosinophils Percent Auto 7.1 % (0-4); Hematocrit 32.5 % (42.0-52.0); Hemoglobin 11.3 g/dl (14.0-18.0); Imm Gran Abs Auto 0.01 X10*3/uL (0.00-0.03); Imm Gran Pct Auto 0.4 % (0.0-0.4); Lymphocytes Absolute Auto 0.7 X10*3/uL (1.2-4.9); Lymphocytes Percent Auto 26.7 % (20-40); Mean Corpuscular HGB Conc 34.8 g/dl (31.0-36.0); Mean Corpuscular Hemoglobin 31.6 pg (27.0-33.0); Mean Corpuscular Volume 90.8 fL (80.0-98.0); Mean Platelet Volume 9.8 fL (9.4-12.4); Monocytes Absolute Auto 0.4 X10*3/uL (0.1-1.2); Monocytes Percent Auto 13.9 % (2-11); Neutrophils Absolute Auto 1.4 x10*3/uL (2.0-8.3); Neutrophils Percent Auto 51.1 % (45-73); Red Blood Count 3.58 X10*6/uL (4.60-5.80); Red Cell Distribution Width 16.3 % (11.0-16.0); White Blood Count 2.7 X10*3/uL (4.8-10.8)
[2023-02-28 10:45] LABS: INTERNATIONAL NORM RATIO 1.5 (0.9-1.1); Platelet Count 90 X10*3/uL (160-400); Prothrombin Time 17.9 SEC (10.0-13.1)
[2023-02-28 11:26] LABS: Alanine Aminotransferase 42 U/L (0-40); Albumin Level 1.9 g/dL (3.5-5.0); Alkaline Phosphatase 335 U/L (39-117); Anion Gap 10 (12-20); Aspartate Amino Transferase 79 U/L (5-37); Bilirubin Total 3.9 mg/dL (0.0-1.0); Blood Urea Nitrogen 7 mg/dL (9-16); Carbon Dioxide 20 mmol/L (22-29); Chloride 113 mmol/L (96-108); Estimated Glomerular Filt Rate > 60; Glucose Random 85 mg/dL (60-115); Potassium 3.8 mmol/L (3.3-5.1); Sodium 139 mmol/L (135-145); Total Protein 6.7 g/dL (6.5-8.0)
[2023-03-02 09:03] LABS: Carbohydrate Antigen 19-9 13 U/mL (<34)
[2023-03-02 13:03] LABS: Alpha Fetoprotein 1.9 ng/mL (<6.1)
== END 2023-02-28 09:07 | disposition home or self-care (01) ==
LOC: HO.LABR 09:06
PROVIDERS: PCP Nurse Practitioner Family; Visit Provider Physician Assistant
DX: K83.01 Primary sclerosing cholangitis (principal); Z12.89 Encounter for screening for malignant neoplasm of other sites; Z13.220 Encounter for screening for lipoid disorders
CPT/HCPCS: 36415; 80053; 82105; 85025; 85610; 86301

== ENCOUNTER 2023-02-28 09:37 | Emergency (ER) | payer OTHER, MEDICAID, SELFPAY ==
[2023-02-28 09:43] VITALS: BP 126/68; PULSE 60; RESP 18; TEMP 36.8; O2SAT 97; BMI 37.6
--- NOTE | 2023-02-28 11:43 | ED_ITS ---
HPI - Wound/Laceration General Chief Complaint: Wound/Laceration Stated Complaint: Hand lac Time Seen by Provider: 02/28/23 10:56 History of Present Illness HPI narrative: Patient complains of small laceration to the palm of the left hand that he got yesterday when he cut it on a piece of metal on a railing, there is no numbness no weakness no tingling he denies any redness pain or discharge from the wound Related Data Home Medications Medication Instructions Recorded Confirmed vedolizumab 300 mg intravenous 300 mg IV Q8W 06/04/21 03/15/22 solution (Entyvio) spironolactone 50 mg tablet 50 mg PO DAILY 12/30/21 03/15/22 ciprofloxacin HCl 500 mg tablet 500 mg PO ONCE 01/17/22 03/15/22 ergocalciferol (vitamin D2) 1,250 1,250 mcg PO QWEEK 02/14/22 03/15/22 mcg (50,000 unit) capsule Previous Rx's Medication Instructions Recorded budesonide 3 mg 9 mg PO DAILY #90 caps 02/07/22 capsule,delayed,extended release sertraline 25 mg tablet 25 mg PO DAILY 30 days #90 tabs 07/31/22 omeprazole 20 mg capsule,delayed 20 mg PO QAM #60 caps 08/31/22 release sodium,potassium,mag sulfates 17.5 See Rx Instructions PO .COMPLEX 09/16/22 gram-3.13 gram-1.6 gram oral soln #354 mL (Suprep Bowel Prep Kit) vitamin A palmitate 3,000 mcg 10,000 unit PO DAILY #90 tabs 09/16/22 (10,000 unit) tablet Galzin 50 mg (zinc) capsule (zinc 50 mg PO DAILY #90 caps 09/23/22 acetate) rifaximin 550 mg tablet (Xifaxan) 550 mg PO BID #60 tabs 11/29/22 Lialda 1.2 gram tablet,delayed 4.8 g PO DAILY #120 tabs 01/22/23 release (mesalamine) ferrous sulfate 325 mg (65 mg 325 mg PO TID #90 tabs 01/22/23 iron) tablet (FeroSul) calcium carbonate 500 mg calcium 500 mg PO BID #60 tabs 02/04/23 (1,250 mg) tablet (Oyster Shell Calcium 500) Allergies Allergy/AdvReac Type Severity Reaction Status Date / Time No Known Allergies Allergy Verified 10/21/22 10:19 [No Known Allergies*] [facility] Past Medical History Source: nursing notes reviewed 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 Ulcerative colitis Surgical History History of esophagogastroduodenoscopy (EGD) Hx of colonoscopy Family History Family History Sister History of liver cancer Social History Social History Household Members: Spouse Household Members Other:: 2 Housing: House Do you presently have visiting nurse or other home services: No Alcohol intake: never Patient Tobacco Use Status: Current someday Tobacco user Tobacco use type: Cigar e-Cigarette/Vaping Use: Never Used Second Hand Smoke Exposure: No Advance Directives: Yes Advance Directives on File: Yes Advance Directives Date on File: 12/31/21 service: No Current occupational status: disabled Cognitive needs: No Hearing needs: No Vision needs: No Physical Exam Vital Signs: Vital Signs: Last Vital Signs Temp 98.2 F 02/28/23 09:43 Pulse 60 02/28/23 09:43 Resp 18 02/28/23 09:43 BP 126/68 02/28/23 09:43 Pulse Ox 97 02/28/23 09:43 O2 Del Method Room Air 02/28/23 09:43 BMI result Body Mass Index 37.6 General appearance no acute distress Head is normocephalic atraumatic Neck is supple Respiratory no distress Extremities full range of motion x4 Left hand on the ulnar are aspect mid the palm there is a scabbed over 0.5 cm laceration, no active bleeding, no surrounding erythema no discharge from the wound no swelling no signs of infection Tendon function is all normal distal on both extension and flexion, sensation is intact, neurovascular intact distal Course Course Course Narrative: Patient with 24 hour hold small superficial lacerations scabbed over no signs of infection no tendon deficits is given a tetanus shot and discharged Discharge Plan Discharge Clinical Impression: Laceration of hand, left Patient Disposition: Home, Self-Care Additional Instructions: The hand laceration is very small and does not need any repair, there are no signs of any infection or tendon injury You got a tetanus shot today Return any time for redness swelling discharge from wound red stripe up arm feve r any sign of infection any concerns Prescriptions: No Action budesonide 3 mg capsule,delayed,extend.release 9 mg PO DAILY Qty: 90 1RF sertraline 25 mg tablet 25 mg PO DAILY 30 Days Qty: 90 2RF omeprazole 20 mg capsule,delayed release(DR/EC) 20 mg PO QAM Qty: 60 3RF Galzin 50 mg (zinc) capsule 50 mg PO DAILY Qty: 90 0RF Xifaxan 550 mg tablet 550 mg PO BID Qty: 60 3RF mesalamine [Lialda] 1.2 gram tablet,delayed release (DR/EC) 4.8 g PO DAILY Qty: 120 2RF ferrous sulfate [FeroSul] 325 mg (65 mg iron) tablet 325 mg PO TID Qty: 90 2RF calcium carbonate [Oyster Shell Calcium 500] 500 mg calcium (1,250 mg) tablet 500 mg PO BID Qty: 60 3RF Entyvio 300 mg recon soln 300 mg IV Q8W spironolactone 50 mg tablet 50 mg PO DAILY ciprofloxacin HCl 500 mg tablet 500 mg PO ONCE ergocalciferol (vitamin D2) 1,250 mcg (50,000 unit) capsule 1,250 mcg PO QWEEK vitamin A palmitate 10,000 unit tablet 10,000 unit PO DAILY Qty: 90 0RF sodium,potassium,mag sulfates [Suprep Bowel Prep Kit] 17.5-3.13-1.6 gram recon soln See Rx Instructions PO .COMPLEX Qty: 354 0RF Rx Instructions: DILUTE; drink 1/2 at 6-8 pm and half at 11 PM- 1AM
[2023-02-28] MEDS: Diphth,Pertus(ACell),Tet Adult 0.5 ML SYRINGE IM (11:47)
== END 2023-02-28 11:52 | disposition home or self-care (01) ==
PROVIDERS: Emergency Provider Emergency Medicine; PCP Nurse Practitioner Family
DX: S61.412A Laceration without foreign body of left hand, initial encounter (principal); S60.512A Abrasion of left hand, initial encounter; M79.642 Pain in left hand; F17.200 Nicotine dependence, unspecified, uncomplicated; W26.9XXA Contact with unspecified sharp object(s), initial encounter; Y93.9 Activity, unspecified; Y99.9 Unspecified external cause status; Y99.0 Civilian activity done for income or pay; Z79.899 Other long term (current) drug therapy; Z71.6 Tobacco abuse counseling; Z23 Encounter for immunization
CPT/HCPCS: 90471; 90715; 99282; 99284

== ENCOUNTER 2023-03-08 15:41 | Outpatient (REF) | payer OTHER, MEDICAID, SELFPAY ==
[2023-03-08 16:31] LABS: Basophils Percent Auto 1.2 % (0-2); Eosinophils Absolute Auto 0.2 X10*3/uL (0.0-0.4); PLT CLUMP 1; Red Cell Distribution Width 17.1 % (11.0-16.0); SCAN SMEAR FLAG 1
[2023-03-08 16:33] LABS: Eosinophils Percent Auto 7.8 % (0-4); Hematocrit 34.7 % (42.0-52.0); Hemoglobin 11.8 g/dl (14.0-18.0); Imm Gran Abs Auto 0.01 X10*3/uL (0.00-0.03); Imm Gran Pct Auto 0.4 % (0.0-0.4); Lymphocytes Absolute Auto 0.7 X10*3/uL (1.2-4.9); MANUAL DIFF FLAG SCAN; Mean Corpuscular Hemoglobin 31.3 pg (27.0-33.0); Mean Platelet Volume 10.1 fL (9.4-12.4); Monocytes Absolute Auto 0.3 X10*3/uL (0.1-1.2); Monocytes Percent Auto 12.7 % (2-11); Neutrophils Absolute Auto 1.2 x10*3/uL (2.0-8.3); Neutrophils Percent Auto 48.9 % (45-73); Red Blood Count 3.77 X10*6/uL (4.60-5.80)
[2023-03-08 16:37] LABS: INTERNATIONAL NORM RATIO 1.6 (0.9-1.1); Prothrombin Time 18.2 SEC (10.0-13.1)
[2023-03-08 16:52] LABS: Platelet Count 102 X10*3/uL (160-400); SLIDE REVIEW VERIFIED; White Blood Count 2.5 X10*3/uL (4.8-10.8)
[2023-03-08 16:55] LABS: Alanine Aminotransferase 52 U/L (0-40); Alkaline Phosphatase 379 U/L (39-117); Anion Gap 6 (12-20); Aspartate Amino Transferase 97 U/L (5-37); Bilirubin Total 3.8 mg/dL (0.0-1.0); Blood Urea Nitrogen 6 mg/dL (9-16); Carbon Dioxide 20 mmol/L (22-29); Chloride 117 mmol/L (96-108); Estimated Glomerular Filt Rate > 60; Glucose Random 75 mg/dL (60-115); Sodium 139 mmol/L (135-145); Total Protein 6.7 g/dL (6.5-8.0)
[2023-03-10 09:54] LABS: Carbohydrate Antigen 19-9 13 U/mL (<34)
[2023-03-10 13:18] LABS: Alpha Fetoprotein 1.8 ng/mL (<6.1)
== END 2023-03-08 15:42 | disposition home or self-care (01) ==
LOC: HO.LAB 15:41
PROVIDERS: PCP Nurse Practitioner Family; Visit Provider Physician Assistant
DX: K83.01 Primary sclerosing cholangitis (principal); K74.60 Unspecified cirrhosis of liver
CPT/HCPCS: 36415; 80053; 82105; 85025; 85610; 86301

== ENCOUNTER 2023-03-20 07:57 | Outpatient (REF) | payer OTHER, SELFPAY | END 2023-03-20 07:58 | disposition home or self-care (01) | LOC: HO.MDS 07:57 | PROVIDERS: Visit Provider Internal Medicine Gastroenterology | DX: K51.90 Ulcerative colitis, unspecified, without complications (principal) | CPT/HCPCS: 96365; J3380 ==

== ENCOUNTER 2023-03-29 10:28 | Outpatient (REF) | payer OTHER, SELFPAY ==
[2023-03-29 12:12] LABS: Basophils Percent Auto 0.9 % (0-2); Eosinophils Absolute Auto 0.1 X10*3/uL (0.0-0.4); Eosinophils Percent Auto 6.4 % (0-4); Hematocrit 31.9 % (42.0-52.0); Hemoglobin 10.9 g/dl (14.0-18.0); Lymphocytes Absolute Auto 0.7 X10*3/uL (1.2-4.9); Lymphocytes Percent Auto 31.8 % (20-40); MANUAL DIFF FLAG SCAN; Mean Corpuscular HGB Conc 34.2 g/dl (31.0-36.0); Mean Corpuscular Hemoglobin 31.3 pg (27.0-33.0); Mean Corpuscular Volume 91.7 fL (80.0-98.0); Mean Platelet Volume 10.1 fL (9.4-12.4); Monocytes Absolute Auto 0.3 X10*3/uL (0.1-1.2); Monocytes Percent Auto 15.5 % (2-11); Neutrophils Percent Auto 45.4 % (45-73); Red Blood Count 3.48 X10*6/uL (4.60-5.80); Red Cell Distribution Width 17.2 % (11.0-16.0); SCAN SMEAR FLAG 1
[2023-03-29 12:13] LABS: Platelet Count 89 X10*3/uL (160-400); White Blood Count 2.2 X10*3/uL (4.8-10.8)
[2023-03-29 12:21] LABS: INTERNATIONAL NORM RATIO 1.5 (0.9-1.1)
[2023-03-29 12:50] LABS: SLIDE REVIEW VERIFIED
[2023-03-29 12:58] LABS: Alanine Aminotransferase 56 U/L (0-40); Albumin Level 1.8 g/dL (3.5-5.0); Alkaline Phosphatase 344 U/L (39-117); Anion Gap 6 (12-20); Aspartate Amino Transferase 107 U/L (5-37); Bilirubin Total 4.5 mg/dL (0.0-1.0); Blood Urea Nitrogen 8 mg/dL (9-16); Calcium 7.9 mg/dL (8.4-10.2); Carbon Dioxide 20 mmol/L (22-29); Chloride 113 mmol/L (96-108); Estimated Glomerular Filt Rate > 60; Glucose Random 166 mg/dL (60-115); Potassium 3.8 mmol/L (3.3-5.1); Sodium 135 mmol/L (135-145); Total Protein 6.3 g/dL (6.5-8.0)
[2023-03-31 10:28] LABS: Carbohydrate Antigen 19-9 8 U/mL (<34)
[2023-03-31 13:28] LABS: Alpha Fetoprotein 1.8 ng/mL (<6.1)
== END 2023-03-29 10:29 | disposition home or self-care (01) ==
LOC: HO.LABR 10:28
PROVIDERS: PCP Nurse Practitioner Family; Visit Provider Physician Assistant
DX: K83.01 Primary sclerosing cholangitis (principal); K74.60 Unspecified cirrhosis of liver
CPT/HCPCS: 36415; 80053; 82105; 85025; 85610; 86301

== ENCOUNTER 2023-03-30 10:16 | Outpatient (REF) | payer OTHER, MEDICARE, MEDICAID, SELFPAY ==
[2023-03-30 11:33] LABS: Appearance Urine Hazy; Color Urine DK YELLOW; Glucose Urine UA Negative (Negative); Leukocyte Esterase Urine Negative (Negative); Nitrite Urine Negative (Negative); PH 5.5 (5.0-9.0); Specific Gravity - Urine >= 1.030 (1.005-1.025); Urine Blood Negative (Negative); Urine Ketones Negative (Negative); Urine Protein Negative (Neg-Trace)
[2023-03-30 12:32] LABS: Prostate Specific Antigen Scr 2.54 ng/mL (<0.05-4.0)
[2023-03-30 12:49] LABS: Cholesterol 163 mg/dL; HDL Cholesterol 29 mg/dL; LDL Cholesterol Calculated 111 mg/dl; Triglycerides 119 mg/dL
== END 2023-03-30 10:17 | disposition home or self-care (01) ==
LOC: HO.HMGCLDS 10:16
PROVIDERS: PCP Nurse Practitioner Family; Visit Provider Nurse Practitioner Family
DX: Z00.00 Encounter for general adult medical examination without abnormal findings (principal); Z12.5 Encounter for screening for malignant neoplasm of prostate; E78.5 Hyperlipidemia, unspecified
CPT/HCPCS: 36415; 80061; 81003; 84153

== ENCOUNTER → 2023-05-05 10:26 | Outpatient (BNVA) | payer OTHER, MEDICARE, MEDICAID, SELFPAY | PROVIDERS: PCP Nurse Practitioner Family; Visit Provider Internal Medicine Gastroenterology ==

== ENCOUNTER 2023-05-15 09:26 | Outpatient (REF) | payer OTHER, MEDICAID, SELFPAY ==
[2023-05-17 23:29] LABS: TS Negative Control Passed; TS Panel A 0; TS Panel B 0; TS Positive Control Passed; TSpotTB Negative (Negative)
== END 2023-05-15 09:27 | disposition home or self-care (01) ==
LOC: HO.MDS 09:26
PROVIDERS: Internal Medicine Gastroenterology; PCP Nurse Practitioner Family; Visit Provider Dentist Pediatric Dentistry
DX: K51.90 Ulcerative colitis, unspecified, without complications (principal)
CPT/HCPCS: 36415; 80280; 82542; 86481; 96365; J3380

== ENCOUNTER 2023-05-16 11:19 | Day surgery (SDC) | payer OTHER, MEDICAID, SELFPAY ==
--- NOTE | ~2023-05-16 | US_ITS ---
EXAMINATION: US ABDOMEN LIMITED CLINICAL INFORMATION: Ascites. COMPARISON: MR abdomen 03/10/2022 TECHNIQUE: Real-time imaging of the abdomen to assess for ascites.. FINDINGS: Small volume ascites. Partially imaged liver appears nodular which could be seen in the setting of cirrhosis. US/US abdomen limited IMPRESSION: 1. Small volume ascites. 2. Partially imaged liver appears nodular which could be seen in the setting of cirrhosis.
[2023-05-16 12:04] LABS: MANUAL DIFF FLAG NO
[2023-05-16 12:07] LABS: Basophils Absolute Auto 0.1 X10*3/uL (0.0-0.2); Basophils Percent Auto 1.6 % (0-2); Eosinophils Absolute Auto 0.4 X10*3/uL (0.0-0.4); Eosinophils Percent Auto 12.9 % (0-4); Hematocrit 33.6 % (42.0-52.0); Hemoglobin 11.5 g/dl (14.0-18.0); Lymphocytes Absolute Auto 0.9 X10*3/uL (1.2-4.9); Lymphocytes Percent Auto 27.8 % (20-40); Mean Corpuscular HGB Conc 34.2 g/dl (31.0-36.0); Mean Corpuscular Hemoglobin 31.4 pg (27.0-33.0); Mean Corpuscular Volume 91.8 fL (80.0-98.0); Mean Platelet Volume 9.5 fL (9.4-12.4); Monocytes Absolute Auto 0.3 X10*3/uL (0.1-1.2); Monocytes Percent Auto 8.4 % (2-11); Neutrophils Absolute Auto 1.5 x10*3/uL (2.0-8.3); Neutrophils Percent Auto 49.3 % (45-73); Platelet Count 96 X10*3/uL (160-400); Red Blood Count 3.66 X10*6/uL (4.60-5.80); Red Cell Distribution Width 17.9 % (11.0-16.0); White Blood Count 3.1 X10*3/uL (4.8-10.8)
[2023-05-16 12:11] LABS: INTERNATIONAL NORM RATIO 1.7 (0.9-1.1); Prothrombin Time 19.7 SEC (10.0-13.1)
[2023-05-16 12:12] VITALS: BMI 39.9
[2023-05-16 12:14] LABS: Partial Thromboplastin Time 39.2 SEC (26.0-36.4)
[2023-05-16 13:49] VITALS: BP 118/65; PULSE 58; RESP 18; TEMP 36.6; O2SAT 98
--- NOTE | 2023-05-16 14:04 | PC.NURSE ---
No fluid to be drained from patient. Patient did not receive any medications
== END 2023-05-16 14:12 | disposition home or self-care (01) ==
PROVIDERS: PCP Nurse Practitioner Family; Visit Provider Radiology Diagnostic Radiology
DX: K76.9 Liver disease, unspecified (principal); R18.8 Other ascites
CPT/HCPCS: 36415; 76705; 85025; 85610; 85730

== ENCOUNTER 2023-06-14 08:32 | Outpatient (AMB) | payer OTHER, MEDICAID, SELFPAY ==
--- NOTE | 2023-06-14 09:10 | MHC.OFFWIV ---
Intake Vital Signs 06/14/23 09:12 BP 124/70 Blood Pressure Location Lt brachial Position Sitting Pulse 68 Pulse Source Pulse Oximeter Pulse Oximetry (%) 98 Oxygen Delivery Method Room Air Intake Visit Reasons: EST/new onset back spasms (lobby) Intake Note: Patient here for back spasms, having a hard time getting around which has been lingering for a few weeks but it got real bad 3 days ago. Patient Tobacco Use Status: Current someday Tobacco user Allergies No Known Allergies [No Known Allergies*] Allergy (Verified 06/14/23 09:12) Do you need a note to return to daycare/school/sports/work: No HPI EST/new onset back spasms (lobby) HPI Details 57-year-old male patient presents today complaining of about a 3 week history of back tightness and muscle spasms. He reports this started to worsen about 3 days ago, and he is now finding most activity and particularly sleep very difficult. He denies any prior back injury, surgery, or any inciting event to the pain. He denies any radiation or weakness down his legs. He reports spasms with movement, particularly position changes for example sitting to standing. He has been taking aspiring for the pain. [facility] 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 Ulcerative colitis Surgical History History of esophagogastroduodenoscopy (EGD) Hx of colonoscopy Family History Sister History of liver cancer Father Substance use disorder Social History Household Members: Spouse Household Members Other:: 2 Housing: House Do you presently have visiting nurse or other home services: No Alcohol intake: never Patient Tobacco Use Status: Current someday Tobacco user Tobacco use type: Cigar e-Cigarette/Vaping Use: Never Used Second Hand Smoke Exposure: No Advance Directives Date on File: 12/31/21 service: No Current occupational status: disabled Cognitive needs: No Hearing needs: No Vision needs: No Review of Systems Const All systems reviewed & are unremarkable except as noted in HPI and below Physical Exam Vital Signs: Last Vital Signs Pulse 68 06/14/23 09:12 BP 124/70 06/14/23 09:12 Pulse Ox 98 06/14/23 09:12 Oxygen Delivery Method Room Air 06/14/23 09:12 Const General: cooperative Neck Neck: Yes no lymphadenopathy Resp Effort & Inspection: normal respiratory effort and able to speak in complete sentences Auscultation: clear to auscultation bilaterally Cardio Jugular venous distension: no JVD Palpation: normal PMI Rate: regular rate Rhythm: regular rhythm Back/Spine/Pelvis Other: Cervical, thoracic, and lumbar paraspinal muscle tightness and spasms. Negative straight leg raise bilaterally. Normal range of motion throughout C/T/L-spine, however with some muscle tightness and tenderness with movement. Skin General skin exam: no rashes or lesions noted Neuro General: gait normal and deep tendon reflexes 2+ bilaterally Extrem General: Yes capillary refill normal Psych Appearance: grossly normal Mental Status: mental status grossly normal Speech and movement: Normal speech and movement present Assessment & Plan Assessment & Plan (1) Spasm of back muscles: Code(s): M62.830 - Muscle spasm of back Plan: Patient is having increasing back spasms over the last few weeks. I will start him on a short course of cyclobenzaprine, and anti-inflammatory medication. We reviewed indications, use, possible side effects of medications. I reviewed some gentle stretching exercises he can do at home. If he does not begin to improve with treatment, he should follow-up with PCP and may benefit from a physical therapy referral. Patient agrees to plan. Medications: New cyclobenzaprine 10 mg PO TID PRN 15 tabs 0RF muscle spasm 5 days M62.830 - Muscle spasm of back ibuprofen 600 mg PO BID PRN 60 tabs 0RF pain 30 days M62.830 - Muscle spasm of back Coding Level of Care Code Est Pt Level 3 (11859) Diagnoses Spasm of back muscles M62.830
[2023-06-14 09:12] VITALS: BP 124/70; PULSE 68; O2SAT 98
== END 2023-06-14 09:34 | disposition home or self-care (01) ==
PROVIDERS: PCP Nurse Practitioner Family; Visit Provider Nurse Practitioner Family
DX: M62.830 Muscle spasm of back (principal)
CPT/HCPCS: 99213

== ENCOUNTER 2023-07-04 08:53 | Outpatient (AMB) | payer OTHER, MEDICAID, SELFPAY ==
--- NOTE | 2023-07-04 09:22 | MHC.OFFWIV ---
Intake Vital Signs 07/04/23 09:23 Height 5 ft 9 in Weight 301 lb BMI 44.4 BP 112/62 Blood Pressure Location Lt brachial Position Sitting Pulse 78 Pulse Source Pulse Oximeter Pulse Oximetry (%) 98 Oxygen Delivery Method Room Air Intake Visit Reasons: EP back spasms, fluid in stomach/pain [phone] Intake Note: Patient here for mid to lower back pain and has been having to use a cane. He has also been very bloated and has not been eating much, feeling weak, nauseous. Patient Tobacco Use Status: Current someday Tobacco user Allergies No Known Allergies [No Known Allergies*] Allergy (Verified 07/04/23 09:31) Do you need a note to return to daycare/school/sports/work: No HPI EP back spasms, fluid in stomach/pain [phone] HPI Details 57-year-old male presents to the office for a sick visit. Patient is complaining of feeling tired, bloated with swelling in his feet and abdomen. He has alcoholic liver disease with cirrhosis. Is complaining of pain in the back and has difficulty walking. He is looking for a walker. [facility] Medical History (Updated 07/04/23 @ 10:06 by Augie Holliday MD) Advanced hepatic cirrhosis Alcohol abuse Anemia Ascites Coagulopathy Coagulopathy Fatty liver Hepatic encephalopathy Hypoalbuminemia 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 Ulcerative colitis Surgical History History of esophagogastroduodenoscopy (EGD) Hx of colonoscopy Family History Sister History of liver cancer Father Substance use disorder Social History Household Members: Spouse Household Members Other:: 2 Housing: House Do you presently have visiting nurse or other home services: No Alcohol intake: never Patient Tobacco Use Status: Current someday Tobacco user Tobacco use type: Cigar e-Cigarette/Vaping Use: Never Used Second Hand Smoke Exposure: No Advance Directives Date on File: 12/31/21 service: No Current occupational status: disabled Cognitive needs: No Hearing needs: No Vision needs: No Physical Exam Vital Signs: Last Vital Signs Pulse 78 07/04/23 09:23 BP 112/62 07/04/23 09:23 Pulse Ox 98 07/04/23 09:23 Oxygen Delivery Method Room Air 07/04/23 09:23 BMI result Body Mass Index 44.4 Const General: cooperative and healthy appearing Nutritional Appearance: well nourished Orientation/consciousness: patient oriented x3 Limitations: no limitations HEENT Head: Yes normal to inspection Eyes General: appearance normal, both eyes and all related structures Neck Neck: Yes normal visual inspection Chest Chest palpation & inspection: normal palpation of entire chest wall Resp Effort & Inspection: normal respiratory effort GI Other: Abdomen: Free fluid present. Prominent veins on the anterior abdominal wall.. For Neuro General: patient oriented x3 Assessment & Plan Assessment & Plan (1) Ascites: Code(s): R18.8 - Other ascites Plan: Patient needs therapeutic paracentesis. A message was left for Dr. Peralta to call back. Patient was advised to continue on the Lasix and Aldactone. He has gained 30 lb in the last few months. Mostly this is free fluid accumulating. Coding Level of Care Code Est Pt Level 4 (41140) Diagnoses Ascites R18.8
[2023-07-04 09:23] VITALS: BP 112/62; PULSE 78; O2SAT 98; BMI 44.4
== END 2023-07-04 10:53 | disposition home or self-care (01) ==
PROVIDERS: PCP Nurse Practitioner Family; Visit Provider Internal Medicine
DX: R18.8 Other ascites (principal)
CPT/HCPCS: 99214

== ENCOUNTER 2023-07-06 12:03 | Outpatient (REF) | payer OTHER, MEDICAID, SELFPAY ==
[2023-07-06 12:36] LABS: MANUAL DIFF FLAG NO
[2023-07-06 13:49] LABS: INTERNATIONAL NORM RATIO 1.7 (0.9-1.1); Prothrombin Time 20.9 SEC (11.1-13.3)
[2023-07-06 13:50] LABS: Basophils Percent Auto 0.6 % (0-2); Eosinophils Absolute Auto 0.3 X10*3/uL (0.0-0.4); Eosinophils Percent Auto 7.1 % (0-4); Hematocrit 27.4 % (42.0-52.0); Hemoglobin 9.5 g/dl (14.0-18.0); Imm Gran Abs Auto 0.01 X10*3/uL (0.00-0.03); Imm Gran Pct Auto 0.3 % (0.0-0.4); Lymphocytes Absolute Auto 0.7 X10*3/uL (1.2-4.9); Lymphocytes Percent Auto 19.3 % (20-40); Mean Corpuscular HGB Conc 34.7 g/dl (31.0-36.0); Mean Corpuscular Hemoglobin 32.4 pg (27.0-33.0); Mean Corpuscular Volume 93.5 fL (80.0-98.0); Mean Platelet Volume 9.7 fL (9.4-12.4); Monocytes Absolute Auto 0.4 X10*3/uL (0.1-1.2); Monocytes Percent Auto 10.8 % (2-11); Neutrophils Absolute Auto 2.2 x10*3/uL (2.0-8.3); Neutrophils Percent Auto 61.9 % (45-73); Platelet Count 113 X10*3/uL (160-400); Red Blood Count 2.93 X10*6/uL (4.60-5.80); Red Cell Distribution Width 17.8 % (11.0-16.0); White Blood Count 3.5 X10*3/uL (4.8-10.8)
[2023-07-06 14:31] LABS: Alanine Aminotransferase 94 U/L (0-40); Albumin Level 1.8 g/dL (3.5-5.0); Alkaline Phosphatase 424 U/L (39-117); Anion Gap 8 (12-20); Aspartate Amino Transferase 179 U/L (5-37); Bilirubin Total 8.7 mg/dL (0.0-1.0); Blood Urea Nitrogen 23 mg/dL (9-16); Calcium 7.9 mg/dL (8.4-10.2); Carbon Dioxide 19 mmol/L (22-29); Chloride 111 mmol/L (96-108); Estimated Glomerular Filt Rate 51; Glucose Random 179 mg/dL (60-115); Sodium 134 mmol/L (135-145); Total Protein 6.7 g/dL (6.5-8.0)
[2023-07-07 09:13] LABS: Carbohydrate Antigen 19-9 6 U/mL (<34)
[2023-07-07 13:18] LABS: Alpha Fetoprotein 2.3 ng/mL (<6.1)
== END 2023-07-06 12:04 | disposition home or self-care (01) ==
LOC: HO.LABR 12:03
PROVIDERS: Absent Provider Internal Medicine Gastroenterology; PCP Nurse Practitioner Family; Visit Provider Physician Assistant
DX: K83.01 Primary sclerosing cholangitis (principal)
CPT/HCPCS: 36415; 80053; 82105; 85025; 85610; 86301

== ENCOUNTER 2023-07-07 10:56 | Outpatient (AMB) | payer OTHER, MEDICAID, SELFPAY ==
--- NOTE | 2023-07-07 11:15 | MHC.OFFVIS ---
Intake Vital Signs 07/07/23 11:26 Height 5 ft 9 in Weight 301 lb BMI 44.4 BP 115/55 L Blood Pressure Location Lt brachial Position Sitting Pulse 68 Intake Visit Reasons: Pt req office visit Intake Note: Patient follow up for advanced hepatic cirrhosis. Patient is gaining weight due fluid, between diarrhea and constipation, Denies any other GI issues. 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 disease complicated by ascites and SBP in the past needing occasional therapeutic paracentesis also has UC managed with entyvio labs prior with severe vit A def not drinking alcohol (stopped 09/2020) or smoking. US 06/2022- minimal ascites, OTHER DATA: MRCP 2021: lymphadenopathy, cirrhosis, ascites, cholelithiasis, ahaustral colon MRCP 12/2020--PSc, cirrhosis, no liver masses, or lesions EGD 07/2020--varices EGD/Colonoscopy 09/2022- Endoscopy Findings: portal hypertensive gastropathy enteropathy small varices Colonoscopy Findings: polyp internal hemorrhoids diverticular disease features of chronic colitis and sequelae of healing Path: chronic mild inactive and active colitis on bx, no dysplasia, hyperplastic polyp INTERIM: He has noted worsening distention feels less hungry Bili up to 8 from 4 noted more looser stools memory is good no blood in stools, noted some urgency no fevers or chills he is not taking diuretics daily due to frequent urination overall he thinks entyvio works well EXAM: GENERAL: The patient is well developed and nontoxic. VITAL SIGNS:see workflow HEENT: Nonicteric sclerae, PERRLA, EOMI. Oropharynx clear. Moist mucous membranes. Conjunctivae appear well perfused. No thyroid mass. CHEST: Chest wall is nontender. HEART: Regular rate and rhythm without murmurs. LUNGS: Clear to auscultation bilaterally. ABDOMEN: Soft but distended, positive bowel sounds, nontender, no organomegaly.no flank tenderness SKIN: No rash, no excessive bruising, petechiae, or purpura. NEUROLOGIC: Cranial nerves II-XII intact without motor/sensory deficit. A/P: 1/ Cirrhosis related to alcohol and? PSC--clinically has ascites, may be worse due to infection from urine, GIT, sub optimal controlled IBD 2/ coagulopathy related to 1/ above in the past 3/ UC--on entyvio--seems to be in clinical remission--high risk for colon cancer due to concomitant PSC and needs annual colonoscopy PLAN: 1/ Cont with current care with entyvio- need to check VDZ level to make sure levels are optimized--might have to increase freq of entyvio to Q4-6 weeks---order in for labs on Monday 2/ imaging-has this arranged at [facility] thru [facility] [place]? 3/ labs done at [facility] recently, repeat here with higher bili, prob secondary to infection, ddx worsening PSC, or HCC, cholangiogram 4/ will need EGd,colonoscopy annually due to PSC and higher cancer risk of colon 5/ -continue vit A 6/ cont with aldactone and lasix 7/ referred for paracentesis, along with diagnostic and therapeutic reasons 8/ dexa scan at later date , cont vit D supplement? 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 Ulcerative colitis Surgical History History of esophagogastroduodenoscopy (EGD) Hx of colonoscopy Family History Sister History of liver cancer Father Substance use disorder Social History Household Members: Spouse Household Members Other:: 2 Housing: House Do you presently have visiting nurse or other home services: No Alcohol intake: never Patient Tobacco Use Status: Current someday Tobacco user Tobacco use type: Cigar e-Cigarette/Vaping Use: Never Used Second Hand Smoke Exposure: No Advance Directives Date on File: 12/31/21 service: No Current occupational status: disabled Cognitive needs: No Hearing needs: No Vision needs: No Physical Exam Vital Signs: Last Vital Signs Pulse 68 07/07/23 11:26 BP 115/55 L 07/07/23 11:26 BMI result Body Mass Index 44.4 Assessment & Plan Assessment & Plan (1) Ascites: Code(s): R18.8 - Other ascites (2) IBD (inflammatory bowel disease): Code(s): K52.9 - Noninfective gastroenteritis and colitis, unspecified Orders: Orders CDiff Gene PCR Today K52.9 - Noninfective gastroenteritis and colitis, unspecified, R18.8 - Other ascites GI Panel Today K52.9 - Noninfective gastroenteritis and colitis, unspecified, R18.8 - Other ascites, R19.7 - Diarrhea, unspecified Albumin Peritoneal Fluid Today R18.8 - Other ascites Cell Ct wDiff Peritoneal FL Today R18.8 - Other ascites Total Protein Peritoneal Fluid Today R18.8 - Other ascites Routine Culture w Gram Stain Today K52.9 - Noninfective gastroenteritis and colitis, unspecified, R18.8 - Other ascites Coding Level of Care Code Est Pt Level 4 (95912) Diagnoses Ascites R18.8 IBD (inflammatory bowel disease) K52.9
[2023-07-07 11:26] VITALS: BP 115/55; PULSE 68; BMI 44.4
== END 2023-07-07 11:38 | disposition home or self-care (01) ==
PROVIDERS: PCP Nurse Practitioner Family; Visit Provider Internal Medicine Gastroenterology
DX: R18.8 Other ascites (principal); K52.9 Noninfective gastroenteritis and colitis, unspecified
CPT/HCPCS: 99214

== ENCOUNTER → 2023-07-07 10:56 | Outpatient (BNVA) | payer OTHER, MEDICAID, SELFPAY | PROVIDERS: PCP Nurse Practitioner Family; Visit Provider Internal Medicine Gastroenterology ==

== ENCOUNTER 2023-07-10 09:13 | Day surgery (SDC) | payer OTHER, MEDICAID, SELFPAY ==
--- NOTE | ~2023-07-10 | US_ITS ---
EXAMINATION: Ultrasound-guided paracentesis. CLINICAL INDICATION: Liver disease and ascites. TECHNIQUE: Following explaining ultrasound-guided paracentesis procedure, benefits and risk, a written consent was obtained. Patient was placed supine on ultrasound stretcher and preliminary ultrasound imaging was obtained. An optimal site was selected along the right mid quadrant laterally and marked. The marked area on the skin was cleaned and draped in usual sterile manner with 2% exiting solution. 1% lidocaine was injected at puncture site. Through a small skin incision a 5 [employer] catheter was advanced through the skin into the peritoneal space. After observing fluid return, stylet was withdrawn and catheter connected to vacuum bottle. After draining all fluid and observing no more fluid drainage, the catheter was pulled and complete hemostasis achieved at puncture site. Simple dressing was applied at the puncture site. Patient tolerated procedure extremely well. FINDINGS: There is small amount of ascites fluid seen in the abdomen. Approximately 1.9 L of cloudy yellowish fluid was drained. Part of the fluid was sent to lab as per referring physician's orders. US/US paracentesis abd w/image IMPRESSION: Successful ultrasound-guided right mid quadrant paracentesis performed without immediate complications.
[2023-07-10 10:25] LABS: Appearance Urine Cloudy; Color Urine Dark Yellow; Glucose Urine UA Negative (Negative); Leukocyte Esterase Urine Small (1+) (Negative); Nitrite Urine Positive (Negative); PH 5.5 (5.0-9.0); Specific Gravity - Urine >= 1.030 (1.005-1.025); UMIC TRIGGER UACC YES; Urine Blood Negative (Negative); Urine Ketones Negative (Negative); Urine Protein 30 (1+) mg/dL (Neg-Trace)
[2023-07-10 10:48] LABS: Bacteria Urine None Seen (None Seen); UACC Culture Trigger YES; WBC Urine 0-5 /HPF (0-5)
[2023-07-10 11:01] LABS: Granular Casts Urine Present
[2023-07-10 11:27] LABS: CDiff Gene PCR NEGATIVE (Negative)
[2023-07-10 14:24] VITALS: BMI 45.2
[2023-07-10 14:44] LABS: Campylobacter Not Detected (Not Detect.); E. coli EAEC Not Detected (Not Detect.); Plesiomonas shigelloides Not Detected (Not Detect.); Salmonella Not Detected (Not Detect.); Vibrio Not Detected (Not Detect.); Vibrio Cholerae Not Detected (Not Detect.); Yersinia enterocolitica Not Detected (Not Detect.)
[2023-07-10 14:45] LABS: Adenovirus F 40/41 Not Detected (Not Detect.); Astrovirus Not Detected (Not Detect.); Cryptosporidium Not Detected (Not Detect.); Cyclospora cayetanensis Not Detected (Not Detect.); E. coli EPEC Not Detected (Not Detect.); E. coli ETEC Not Detected (Not Detect.); E. coli STEC Not Detected (Not Detect.); Entamoeba histolytica Not Detected (Not Detect.); Giardia lamblia Not Detected (Not Detect.); Norovirus GI/GII Not Detected (Not Detect.); Rotavirus A Not Detected (Not Detect.); Sapovirus Not Detected (Not Detect.); Shigella sp./EIEC Not Detected (Not Detect.)
[2023-07-10 15:20] VITALS: BP 112/61; PULSE 72; RESP 20; TEMP 36.9; O2SAT 98
[2023-07-10] MEDS: Lidocaine HCl 1 % MPF 5 ML VIAL SUBCUT (15:24)
[2023-07-10 15:58] LABS: MN% 83.9 %; PMN% 16.1 %; WBC Peritoneal Fluid 0.072 X10*3/uL
[2023-07-10 16:00] VITALS: BP 118/64; PULSE 72; RESP 18; O2SAT 98
[2023-07-10 16:32] LABS: BF Shift QC OK YES; RBC Peritoneal Fluid < 0.002 X10*6/uL
[2023-07-10 16:33] LABS: Lymphocyte Peritoneal Fl 23 %; Monocytes Peritoneal Fl 57 %; Neutrophils Peritoneal Fluid 9 %; Other Peritioneal Fl 11 %
[2023-07-10 17:00] VITALS: BP 112/59; PULSE 76; RESP 16; TEMP 36.8; O2SAT 98
[2023-07-10 22:34] LABS: Albumin Peritoneal Fluid 0.3 GM/DL; Total Protein Peritoneal Fluid 0.4 GM/DL
== END 2023-07-10 17:27 | disposition home or self-care (01) ==
PROVIDERS: Internal Medicine Gastroenterology; PCP Nurse Practitioner Family; Visit Provider Radiology Diagnostic Radiology
DX: R18.8 Other ascites (principal); K74.60 Unspecified cirrhosis of liver; K52.9 Noninfective gastroenteritis and colitis, unspecified; F10.10 Alcohol abuse, uncomplicated; Z79.899 Other long term (current) drug therapy; F17.290 Nicotine dependence, other tobacco product, uncomplicated
CPT/HCPCS: 49083; 81001; 82042; 84157; 87070; 87073; 87086; 87088; 87186; 87205; 87493; 87507; 89051

== ENCOUNTER 2023-07-10 09:14 | Outpatient (REF) | payer OTHER, MEDICAID, SELFPAY | END 2023-07-10 09:15 | disposition home or self-care (01) | LOC: HO.MDS 09:14 | PROVIDERS: Visit Provider Internal Medicine Gastroenterology | DX: K51.90 Ulcerative colitis, unspecified, without complications (principal) | CPT/HCPCS: 36415; 80280; 82542; 96365; J3380 ==

== ENCOUNTER → 2023-07-10 14:35 | Outpatient (BNV) | payer OTHER, MEDICAID, SELFPAY | PROVIDERS: PCP Nurse Practitioner Family; Visit Provider Radiology Diagnostic Radiology | DX: R18.8 Other ascites (principal) | CPT/HCPCS: 49083 ==

== ENCOUNTER 2023-07-14 12:19 | Outpatient (AMB) | payer OTHER, MEDICAID, SELFPAY ==
--- NOTE | 2023-07-14 12:19 | A.OFFVIS_ITS ---
Intake Vital Signs 07/14/23 12:31 Height 5 ft 9 in Weight 302 lb BMI 44.6 BP 105/51 L Blood Pressure Location Lt brachial Position Sitting Pulse 69 Intake Visit Reasons: follow up- dr phong rothman Intake Note: Yaya presents in the office for follow up Patient denies any Gi issues. 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 disease complicated by ascites and SBP in the past needing occasional therapeutic paracentesis also has UC managed with entyvio labs prior with severe vit A def not drinking alcohol (stopped 09/2020) or smoking. US 06/2022- minimal ascites, OTHER DATA: MRCP 2021: lymphadenopathy, cirrhosis, ascites, cholelithiasis, ahaustral colon MRCP 12/2020--PSc, cirrhosis, no liver masses, or lesions EGD 07/2020--varices EGD/Colonoscopy 09/2022- Endoscopy Findings: portal hypertensive gastropathy enteropathy small varices Colonoscopy Findings: polyp internal hemorrhoids diverticular disease features of chronic colitis and sequelae of healing Path: chronic mild inactive and active colitis on bx, no dysplasia, hyperplastic polyp I did w/u for worsening LFT ascitic fluid neg for SBP--only 1.9 L removed UA and culture pos for staph warneri--initially sent cipro due to pos UA but then sent bactrim once got confirmation on organism vedolizumab levels were v good INTERIM: 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 Oropharynx clear. Moist mucous membranes. Conjunctivae appear well perfused. No thyroid mass. CHEST: Chest wall is nontender. HEART: Regular rate and rhythm without murmurs. LUNGS: Clear to auscultation bilaterally. ABDOMEN: Soft but distended, positive bowel sounds, nontender, no organomegaly.no flank tenderness SKIN: No rash, no excessive bruising, petechiae, or purpura. NEUROLOGIC: Cranial nerves II-XII intact without motor/sensory deficit. A/P: 1/ Cirrhosis related to alcohol and? PSC--clinically had ascites (only small vol on imaging and 2 L removed), may be worse due to infection from urine, 2/ coagulopathy related to 1/ above in the past 3/ UC--on entyvio--seems to be in clinical remission--high risk for colon cancer due to concomitant PSC and needs annual colonoscopy PLAN: 1/ Cont with current care with entyvio- 2/ imaging-has this arranged at [facility] thru [facility] [place]? 3/ labs done at [facility] recently, repeat here with higher bili, prob secondary to infection, ddx worsening PSC, or HCC,repeat labs in 1 week after gets ABX (only thing is bactrim can false elevated creatinine) 4/ will need EGd,colonoscopy annually due to PSC and higher cancer risk of colon 5/ -continue vit A 6/ cont with aldactone and lasix 7/ dexa scan at later date , cont vit D supplement 8/ he and are aware to come to ED if any worsening of condition 9/ might need re imaging if LFT remain elevated ?? 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 Ulcerative colitis Surgical History History of esophagogastroduodenoscopy (EGD) Hx of colonoscopy Family History Sister History of liver cancer Father Substance use disorder Social History Household Members: Spouse Household Members Other:: 2 Housing: House Do you presently have visiting nurse or other home services: No Alcohol intake: never Patient Tobacco Use Status: Current someday Tobacco user Tobacco use type: Cigar e-Cigarette/Vaping Use: Never Used Second Hand Smoke Exposure: No Advance Directives Date on File: 12/31/21 service: No Current occupational status: disabled Cognitive needs: No Hearing needs: No Vision needs: No Assessment & Plan Assessment & Plan (1) IBD (inflammatory bowel disease): Code(s): K52.9 - Noninfective gastroenteritis and colitis, unspecified (2) Ascites: Code(s): R18.8 - Other ascites (3) Advanced hepatic cirrhosis: Code(s): K74.60 - Unspecified cirrhosis of liver (4) UTI (urinary tract infection): Code(s): N39.0 - Urinary tract infection, site not specified Orders: Orders Comprehensive Met. Panel Today K52.9 - Noninfective gastroenteritis and colitis, unspecified, K75.81 - Nonalcoholic steatohepatitis ([place]), R18.8 - Other ascites Prothrombin Time INR Today K52.9 - Noninfective gastroenteritis and colitis, unspecified, R18.8 - Other ascites Complete Blood Count Auto Diff Today K52.9 - Noninfective gastroenteritis and colitis, unspecified, R18.8 - Other ascites Coding Level of Care Code Est Pt Level 4 (22170) Diagnoses IBD (inflammatory bowel disease) K52.9 Ascites R18.8 Advanced hepatic cirrhosis K74.60 UTI (urinary tract infection) N39.0
[2023-07-14 12:31] VITALS: BP 105/51; PULSE 69; BMI 44.6
== END 2023-07-14 12:34 | disposition home or self-care (01) ==
PROVIDERS: PCP Nurse Practitioner Family; Visit Provider Internal Medicine Gastroenterology
DX: K52.9 Noninfective gastroenteritis and colitis, unspecified (principal); R18.8 Other ascites; K74.60 Unspecified cirrhosis of liver; N39.0 Urinary tract infection, site not specified
CPT/HCPCS: 99214

== ENCOUNTER → 2023-07-14 12:19 | Outpatient (BNVA) | payer OTHER, MEDICAID, SELFPAY | PROVIDERS: PCP Nurse Practitioner Family; Visit Provider Internal Medicine Gastroenterology ==

== ENCOUNTER 2023-07-17 10:41 | Outpatient (AMB) | payer OTHER, MEDICAID, SELFPAY ==
--- NOTE | 2023-07-17 10:42 | MHC.OFFWIV ---
Intake Vital Signs 07/17/23 10:44 Weight 310 lb BP 120/78 Blood Pressure Location Lt brachial Position Sitting Pulse 82 Pulse Source Pulse Oximeter Temp 98.5 F Temp Source Temporal Artery Scan Pulse Oximetry (%) 97 Oxygen Delivery Method Room Air Intake Visit Reasons: EP, back pain Intake Note: Patient here for back pain that has been present for about 1 month, pt states everyday its worsened, having a hard time getting out of bed. He does have concerns of weight gain. Patient Tobacco Use Status: Current someday Tobacco user Allergies No Known Allergies [No Known Allergies*] Allergy (Verified 07/07/23 11:14) Do you need a note to return to daycare/school/sports/work: No HPI EP, back pain HPI Details 57-year-old male presents to the office for a sick visit. Patient reports he is in a lot of pain. He has fluid accumulating in his abdomen, lower extremities and back. Patient is on the diuretics and had therapeutic paracentesis last week. About 2 L of fluid was removed. Continues to be very uncomfortable because of the amount of fluid he has. This is causing a lot of back pain for him which is causing a lot of distress to the patient. 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 Ulcerative colitis Surgical History History of esophagogastroduodenoscopy (EGD) Hx of colonoscopy Family History Sister History of liver cancer Father Substance use disorder Social History Household Members: Spouse Household Members Other:: 2 Housing: House Do you presently have visiting nurse or other home services: No Alcohol intake: never Patient Tobacco Use Status: Current someday Tobacco user Tobacco use type: Cigar e-Cigarette/Vaping Use: Never Used Second Hand Smoke Exposure: No Advance Directives Date on File: 12/31/21 service: No Current occupational status: disabled Cognitive needs: No Hearing needs: No Vision needs: No Physical Exam Vital Signs: Last Vital Signs Temp 98.5 F 07/17/23 10:44 Pulse 82 07/17/23 10:44 BP 120/78 07/17/23 10:44 Pulse Ox 97 07/17/23 10:44 Oxygen Delivery Method Room Air 07/17/23 10:44 Const Other: Cooperative adult in moderate distress. Patient has come in using a cane. General: cooperative and healthy appearing Nutritional Appearance: well nourished Orientation/consciousness: patient oriented x3 Limitations: no limitations HEENT Head: Yes normal to inspection Eyes General: appearance normal, both eyes and all related structures Neck Neck: Yes normal visual inspection Chest Chest palpation & inspection: normal palpation of entire chest wall Resp Effort & Inspection: normal respiratory effort Neuro General: patient oriented x3 Extrem Other: Generalized anasarca with ascites and marked pedal edema. Office Meds ketorolac Performing Provider: Augie Holliday MD Administered by: Delicia Lacy RN on 07/17/23 11:25 Dose Route Admin Location Lot Number Expiration Date NDC Quality Assurance Calibrator 60 mg IM Left gluteus [id number] 02/17/24 89684-723-85 [employer] Comments: Advised pt NO OTC NSAIDS for 8-10 hours post injection. Assessment & Plan Assessment & Plan (1) Ascites: Code(s): R18.8 - Other ascites Plan: Patient had therapeutic paracentesis last week. He is on full dosage of the diuretics. Unfortunately the he has a terminal liver condition. If the Toradol injection or the tramadol does not help, he needs to proceed to the emergency room for pain control. Orders: Orders AMB Ketorolac Injection Today R18.8 - Other ascites Medications: New ketorolac 60 mg (2 mL) IM ONCE 2 mL 0RF R18.8 - Other ascites tramadol 50 mg PO BEDTIME PRN 10 tabs 0RF pain Coding Level of Care Code Est Pt Level 4 (26534) Diagnoses Ascites R18.8
[2023-07-17 10:44] VITALS: BP 120/78; PULSE 82; TEMP 36.9; O2SAT 97
== END 2023-07-17 11:38 | disposition home or self-care (01) ==
PROVIDERS: PCP Nurse Practitioner Family; Visit Provider Internal Medicine
DX: R18.8 Other ascites (principal)
CPT/HCPCS: 96372; 99214; J1885

== ENCOUNTER 2023-08-17 10:20 | Outpatient (AMB) | payer OTHER, MEDICAID, SELFPAY ==
[2023-08-17 10:46] VITALS: BP 140/90; PULSE 67; O2SAT 99; BMI 31.5
--- NOTE | 2023-08-17 10:46 | A.OFFPC_ITS ---
Vital Signs 08/17/23 10:46 Height 5 ft 9 in Weight 213 lb BMI 31.5 BP 140/90 H Blood Pressure Location Rt brachial Position Sitting Pulse 67 Pulse Source Pulse Oximeter Pulse Oximetry (%) 99 Oxygen Delivery Method Room Air Intake Visit Reasons: discuss blood sugar Allergies No Known Allergies [No Known Allergies*] Allergy (Verified 08/17/23 10:51) Tobacco use date assessed: 08/17/23 Dental Screening Dental Screen Date: 08/17/23 Did you have a dental visit in the last 12 months?: Yes Did you have a dental problem in the last 6 months where you did not have access to dental care?: No Was dental information given to patient?: Patient has dentist HPI discuss blood sugar HPI Details Patient had recent liver transplant at the end of June of 2023. He was recently noted to have elevated blood sugars of 200 or above. He was apparently on prednisone at this time as well. Today, patient reports he is still on 15mg of prednisone once a day. Pt has a glucometer at home, checking it up to 3 times a day, running 184, 101, 225, 177. HTN: lower back pain still, denies any radicular symptoms. Pt describes a tight feeling to his lower transverse back. Pt denies any polyuria, polydipsia, or neuropathy. He further denies CP, SOB, dizziness, NUNN, or blurred vision. Pt's reports home BPS ar e in the 140s/90s Plan is to start amlodipine if it is okay with his transplant team. Pt will further get lumbar spine imaging. Also starting low dose lantus and have the pt monitor his BS with use of sensor/transmitter. Denies any radicular symptoms or s/s of cauda equina. Pt does have a PT that comes to his home, recommended they show him lower back stretches, and utilize warm moist heat to lower back as well. 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 Surgical History (Updated 08/01/23 @ 13:19 by ANDREA Higuera) Liver transplanted Hx of colonoscopy History of esophagogastroduodenoscopy (EGD) Family History Sister History of liver cancer Father Substance use disorder Social History Household Members: Spouse Household Members Other:: 2 Housing: House Do you presently have visiting nurse or other home services: No Alcohol intake: never Patient Tobacco Use Status: Never used Tobacco Tobacco use type: Cigar e-Cigarette/Vaping Use: Never Used Second Hand Smoke Exposure: No Advance Directives Date on File: 12/31/21 service: No Current occupational status: disabled Cognitive needs: No Hearing needs: No Vision needs: No Questionnaire Thrive Questionnaire Date Thrive assessed: 03/30/23 MARGE-7 AMB Questionnaire MARGE-7 Date MARGE - 7 assessed: 03/30/23 Source: Developed by Drs. Frantz Mora, Sophia Monroe, Elmer Calle and colleagues, with an educational nacho from [employer]. Physical exam (Primary Care) Vital Signs: Last Vital Signs Pulse 67 08/17/23 10:46 BP 140/90 H 08/17/23 10:46 Pulse Ox 99 08/17/23 10:46 Oxygen Delivery Method Room Air 08/17/23 10:46 BMI result Body Mass Index 31.5 Tobacco/Smoking Status: Tobacco use Status Tobacco use date assessed 08/17/23 08/17/23 11:03 Patient Tobacco Use Status Never used Tobacco 08/17/23 11:03 Tobacco use type Cigar 08/17/23 10:46 e-Cigarette/Vaping Use Never Used 08/17/23 10:46 Thrive Assessment: Date of Thrive Assessment Date Thrive assessed 03/30/23 08/17/23 10:46 Const General: cooperative, comfortable and no acute distress Chest Chest palpation & inspection: normal inspection of the chest Resp Effort & Inspection: normal respiratory effort Auscultation: clear to auscultation bilaterally Cardio Rate: regular rate Rhythm: regular rhythm Heart sounds: S1 normal heart sound present, S2 normal heart sound present and no murmurs Back/Spine/Pelvis Other: able to heel and toe walk without increase in pain. DIfficult time getting into supine position due to lower transverse back pain. Difficult time performing BLE knee to chest raises and entire lower extrem raises due to lower transverse back pain, no radiculopathy noted during exam. + patellar reflexes. Assessment and Plan Assessment & Plan (1) Chronic lower back pain: Code(s): M54.50 - Low back pain, unspecified; G89.29 - Other chronic pain Plan: XR, PT, stretching, warm moist heat (2) Elevated blood sugar level: Code(s): R73.9 - Hyperglycemia, unspecified Plan: trying to get pt's own scanner/glucometer, starting low dose lantus, will cont to monitor (3) HTN (hypertension): Code(s): I10 - Essential (primary) hypertension Plan: want to start amlodipine, contacting transplant team Orders: Orders XR lumbar spine 2-3V Today G89.29 - Other chronic pain, M54.50 - Low back pain, unspecified Medications: New insulin glargine (Lantus Solostar U-100 Insulin) 8 units (0.08 mL) subcut QPM 30 days 2.4 mL 2RF Discontinued sulfamethoxazole-trimethoprim 800-160 mg (Bactrim DS) Discontinued Reason: No Longer Medically Relevant 1 tab PO BID 1 week 14 tabs 0RF Coding Level of Care Code Est Pt Level 3 (68922) Diagnoses Chronic lower back pain M54.50; G89.29 Elevated blood sugar level R73.9 HTN (hypertension) I10
== END 2023-08-17 11:56 | disposition home or self-care (01) ==
PROVIDERS: PCP Nurse Practitioner Family; Visit Provider Nurse Practitioner Family
DX: M54.50 Low back pain, unspecified (principal); G89.29 Other chronic pain; R73.9 Hyperglycemia, unspecified; I10 Essential (primary) hypertension
CPT/HCPCS: 99213

== ENCOUNTER 2023-08-17 11:58 | Outpatient (REF) | payer OTHER, MEDICAID, SELFPAY ==
--- NOTE | ~2023-08-17 | XR_ITS ---
EXAMINATION: XR LUMBOSACRAL SPINE CLINICAL INFORMATION: Lower back pain. COMPARISON: CT abdomen and pelvis dated 06/04/2021; MRI abdomen dated 03/10/2022. TECHNIQUE: AP and lateral views of the lumbar spine and lateral view of the lumbosacral junction. FINDINGS: There is bony demineralization. There is a moderate T11 anterior wedge compression fracture, which is new from the prior CT and MRI examinations. Vertebral body heights and alignment are otherwise normal. There is mild posterior narrowing of the T10-T11 and T11-T12 disc spaces. The posterior elements are intact. There are upper abdominal surgical clips. XR/XR lumbar spine 2-3V IMPRESSION: 1. There is a moderate T11 anterior wedge compression fracture. 2. There is mild degenerative disc disease at T10-T11 and T11-T12. 3. The lumbar disc spaces are well-maintained.
== END 2023-08-17 11:59 | disposition home or self-care (01) ==
LOC: HO.HMGCX 11:58
PROVIDERS: PCP Nurse Practitioner Family; Visit Provider Nurse Practitioner Family
DX: M54.50 Low back pain, unspecified (principal); G89.29 Other chronic pain
CPT/HCPCS: 72100

== ENCOUNTER 2023-08-18 10:21 | Outpatient (AMB) | payer OTHER, MEDICAID, SELFPAY ==
--- NOTE | 2023-08-18 10:24 | A.OFFVIS_ITS ---
Intake Vital Signs 08/18/23 10:25 Height 5 ft 9 in Weight 205 lb 7.026 oz BMI 30.3 BP 107/75 Blood Pressure Location Lt brachial Position Sitting Pulse 91 Intake Visit Reasons: f/u liver transplant Intake Note: Yaya presents in the office as a follow up to his liver transplant. CC: Allergies No Known Allergies [No Known Allergies*] Allergy (Verified 08/18/23 10:27) HPI f/u liver transplant HPI Details 57 yr old m here for f/u RECAP: hx of PSC and liver cirrhosis, prior alcohol xs following Mass gen for liver transplant evaluation. disease complicated by ascites and SBP in the past needing occasional therapeutic paracentesis also has UC managed with entyvio labs prior with severe vit A def not drinking alcohol (stopped 09/2020) or smoking. US 06/2022- minimal ascites, OTHER DATA: MRCP 2021: lymphadenopathy, cirrhosis, ascites, cholelithiasis, ahaustral colon MRCP 12/2020--PSc, cirrhosis, no liver masses, or lesions EGD 07/2020--varices EGD/Colonoscopy 09/2022- Endoscopy Findings: portal hypertensive gastropathy enteropathy small varices Colonoscopy Findings: polyp internal hemorrhoids diverticular disease features of chronic colitis and sequelae of healing Path: chronic mild inactive and active colitis on bx, no dysplasia, hyperplastic polyp I did w/u for worsening LFT ascitic fluid neg for SBP--only 1.9 L removed UA and culture pos for staph warneri--initially sent cipro due to pos UA but then sent bactrim once got confirmation on organism vedolizumab levels were v good HE finally had his liver transplant 06/2023--recovering well INTERIM: He is doing well post op no fevers or chills no cough or sputum no hematuria or rectal bleeding he has noted some occ watery stools, with fluids, formed up at other times on tacro and mycophenolate EXAM: GENERAL: The patient is alert, VITAL SIGNS:see workflow HEENT: normal sclerae, PERRLA, EOMI. Oropharynx clear. Moist mucous membranes. Conjunctivae appear well perfused. No thyroid mass. CHEST: Chest wall is nontender. HEART: Regular rate and rhythm without murmurs. LUNGS: Clear to auscultation bilaterally. ABDOMEN: Soft but distended, positive bowel sounds, nontender, no organomegaly.no flank tenderness SKIN: No rash, no excessive bruising, petechiae, or purpura. NEUROLOGIC: Cranial nerves II-XII intact without motor/sensory deficit. A/P: 1/ Cirrhosis related to alcohol and? PSC --no s/p liver transplant 2/ coagulopathy related to 1/ above in t he past--not an issue now 3/ UC--on entyvio--seems to be in clinic al remission--high risk for colon cancer PLAN: 1/ Cont with current care with entyvio- need to discuss with transplant team when ok to restart, i imagine would be ok by now 2/ imaging-has this arranged at [facility] thru [facility] [place] [facility]? 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 Surgical History Liver transplanted Hx of colonoscopy History of esophagogastroduodenoscopy (EGD) Family History Sister History of liver cancer Father Substance use disorder Social History Household Members: Spouse Household Members Other:: 2 Housing: House Do you presently have visiting nurse or other home services: No Alcohol intake: never Patient Tobacco Use Status: Never used Tobacco Tobacco use type: Cigar e-Cigarette/Vaping Use: Never Used Second Hand Smoke Exposure: No Advance Directives Date on File: 12/31/21 service: No Current occupational status: disabled Cognitive needs: No Hearing needs: No Vision needs: No Physical Exam Vital Signs: Last Vital Signs Pulse 91 08/18/23 10:25 BP 107/75 08/18/23 10:25 BMI result Body Mass Index 30.3 Assessment & Plan Assessment & Plan (1) IBD (inflammatory bowel disease): Code(s): K52.9 - Noninfective gastroenteritis and colitis, unspecified (2) Advanced hepatic cirrhosis: Code(s): K74.60 - Unspecified cirrhosis of liver Coding Level of Care Code Est Pt Level 3 (44143) Diagnoses IBD (inflammatory bowel disease) K52.9 Advanced hepatic cirrhosis K74.60
[2023-08-18 10:25] VITALS: BP 107/75; PULSE 91; BMI 30.3
== END 2023-08-18 12:00 | disposition home or self-care (01) ==
PROVIDERS: PCP Nurse Practitioner Family; Visit Provider Internal Medicine Gastroenterology
DX: K52.9 Noninfective gastroenteritis and colitis, unspecified (principal); K74.60 Unspecified cirrhosis of liver
CPT/HCPCS: 99213

== ENCOUNTER → 2023-08-18 10:21 | Outpatient (BNVA) | payer OTHER, MEDICAID, SELFPAY | PROVIDERS: PCP Nurse Practitioner Family; Visit Provider Internal Medicine Gastroenterology ==

== ENCOUNTER → 2023-08-30 10:30 | Outpatient (REF) | payer OTHER, MEDICAID, SELFPAY ==
--- NOTE | ~2023-08-30 | NM_ITS ---
EXAMINATION: BONE SCAN OF THE HEAD TO THE PELVIS CLINICAL INFORMATION: Severe low back pain for 2 months. Status post liver transplant 6 weeks ago. COMPARISON: No previous bone scan is available for comparison. Radiographs of the lumbar spine dated 08/17/2023 are available for comparison. TECHNIQUE: Multiple gamma scintillation camera images of the head to the pelvis in multiple projections were performed 2.5 hours following the intravenous administration of 33 mCi Tc-99m MDP. FINDINGS: In the head, there is a small discrete focus of moderately increased activity present in the multiple region of the right side of the mandible, likely due to dental disease. In the thoracic cage and upper extremities, there is minimally increased activity in the acromioclavicular and sternoclavicular joints bilaterally. In the spine, horizontally linear foci are present at 3 levels in the mid and lower thoracic spine. These are probably in the T7, T9, and T11 vertebral bodies. The T11 vertebral body abnormality corresponds well to an anterior wedge compression fracture on the 08/17/2023 lumbar spine radiographs, but the other 2 lesions are outside the [id number] of those radiographs. There are additional faint foci of increased activity in the midline more superiorly, likely at T4 and T1. There are no abnormalities in the vertebral bodies of the lumbar spine but mild abnormalities bilaterally in the posterior elements at L5/S1 are noted and likely due to facet arthropathy. In the pelvis, no significant abnormalities are present. In the visualized proximal femurs, there is a discrete focus of moderately increased activity near the superior lip of the left acetabulum. This is difficult to localize but is probably not in the acetabulum and is likely in the superior lateral aspect of the left femoral head or adjacent femoral neck. No additional osseous abnormalities are present. The urinary bladder and faint visualization of both kidneys are noted. NM/NM bone scan limited area IMPRESSION: 1. Very prominent abnormalities at T7, T9, and T11 are likely due to recent compression fractures at these vertebral bodies. Correlation with plain radiographs of the thoracic spine is recommended for follow-up. 2. Additional abnormality in the left hip is noted and while this may be due to degenerative changes in the superior lip of the left acetabulum, it appears to be more likely in the left femoral head or neck and may represent a small fracture or other lesion at this site. This could be further characterized with MRI, if clinically indicated. 3. A few additional mild nonspecific abnormalities are noted as described above and these are all likely arthritic or traumatic in etiology. None of these abnormalities is strongly suspicious for metastatic disease.
== END ==
LOC: HO.NUCMED 10:30
PROVIDERS: PCP Nurse Practitioner Family; Visit Provider Nurse Practitioner Family
DX: S22.000A Wedge compression fracture of unspecified thoracic vertebra, initial encounter for closed fracture (principal)
CPT/HCPCS: 78300; A9503

== ENCOUNTER 2023-08-31 14:57 | Outpatient (REF) | payer OTHER, MEDICAID, SELFPAY ==
--- NOTE | ~2023-08-31 | XR_ITS ---
EXAMINATION: XR THORACOLUMBAR SPINE CLINICAL INFORMATION: Upper back pain. COMPARISON: CT abdomen and pelvis dated 06/04/2021. TECHNIQUE: AP and lateral views of the thoracic spine are submitted. FINDINGS: There is bony demineralization. There are moderately severe T8 and T10 compression fractures, newly seen. Vertebral body heights are otherwise unremarkable. Alignment is normal. The posterior elements are intact. The paravertebral soft tissues are unremarkable. There are multiple upper abdominal surgical clips. XR/XR thoracic spine 2V IMPRESSION: There is interim appearance of moderate T8 and T10 compression fractures.
== END 2023-08-31 14:58 | disposition home or self-care (01) ==
LOC: HO.HMGCX 14:57
PROVIDERS: PCP Nurse Practitioner Family; Visit Provider Nurse Practitioner Family
DX: M54.9 Dorsalgia, unspecified (principal); R94.8 Abnormal results of function studies of other organs and systems
CPT/HCPCS: 72070

== ENCOUNTER 2023-09-11 09:53 | Day surgery (SDC) | payer OTHER, MEDICAID, SELFPAY ==
[2023-09-11] VITALS (8 sets, daily range): BP systolic 117–138; BP diastolic 80–94; PULSE 45–81; RESP 14–18; TEMP 36.1–36.6; O2SAT 98–99; BMI 31.5
--- NOTE | ~2023-09-11 | CT_ITS ---
EXAMINATION: CT THORACIC SPINE CLINICAL INFORMATION: Wedge compression fracture of thoracic vertebra. COMPARISON: Thoracic spine CT 09/11/2023. TECHNIQUE: A targeted multidetector CT acquisition of the thoracic spine is obtained at the T5 through the T12 levels This CT examination was performed using dose optimization techniques as appropriate, variously including the following: *Automated exposure control *Adjustment of mA and/or kV according to patient size (this includes techniques or standardized protocols for targeted exams where dose is matched to indication/reason for exam; i.e. extremities or head) *Use of iterative reconstruction technique FINDINGS: There is transitional anatomy with 13 rib-bearing thoracic type vertebral bodies. Hypoplastic ribs at the lowermost thoracic type segment. Please correlate with plain films prior to any percutaneous or surgical intervention. Using this counting system, the patient is status post vertebral body augmentation at the T7, T9, and T11 levels. A small amount of vertebral body cement is appreciated within the T9-T10 and the T11-T12 intervertebral discs. Similar degree of vertebral body height loss at the T7, T9, and T11 levels. No new fractures. There is vacuum phenomenon within the T7-T8, T10-T11, and T11-T12 intervertebral discs. Small volume paravertebral cement at T7. Probable right lower lobe rounded atelectasis. Surgical clips within the right upper quadrant. The partially imaged heart is enlarged. CT/CT thoracic spine post vert IMPRESSION: - There is transitional anatomy with 13 rib-bearing thoracic type vertebral bodies. Hypoplastic ribs at the lowermost thoracic type segment. Please correlate with plain films prior to any percutaneous or surgical intervention. - Using this counting system, the patient is status post vertebral body augmentation at the T7, T9, and T11 levels with similar vertebral body compression fractures at these levels when compared to the earlier prevertebral body augmentation CT. A small amount of vertebral body cement is appreciated within the T9-T10 and the T11-T12 intervertebral discs. Small volume paravertebral cement at T7.
--- NOTE | ~2023-09-11 | IR_ITS ---
EXAMINATION: IR THORACIC VERTEBROPLASTY T7, T9 AND T11 VERTEBRA CLINICAL INFORMATION: Acute low back pain thoracic spine secondary to T7, T9 and T11 compression fracture on bone scan. Patient is on steroids for recently performed liver transplant 8 weeks ago. Patient has known osteoporosis. COMPARISON: Bone scan 08/30/2023. TECHNIQUE: Following explaining fluoroscopy-guided bipedicle approach T7, T9 and T11 kyphoplasty procedure, benefits and risks, a written consent was obtained. Patient was placed prone on fluoroscopy table and T7, T9 and T11 vertebrae were identified. Markers were placed overlying these vertebra and the entire area was cleaned and draped in usual sterile manner. 1% lidocaine was injected overlying the right T11 pedicle on the skin. A 22-gauge spinal needle was advanced from the skin to the posterior cortex of right pedicle. 0.25% Marcaine was injected at puncture site. Through a small skin incision a 10-gauge Kyphon needle was advanced from the skin to the level of pedicle and through the pedicle into posterior one thirds of T11 vertebra. A similar second needle was inserted through the left pedicle followed by fourth and fifth needle through the right T9 pedicle and fifth and sixth needles to the right and left T7 pedicle respectively. The stylet of each of this needles were withdrawn and a simple drill was inserted through the needles and a tract was created. Subsequently balloon was inserted through the needles and inflated to 300 PSI for 5 minutes. The balloons along the T7 and T9 vertebra were removed and freshly prepared polymethylmethacrylate/cement was injected through the right T7 followed by left T7 needles and subsequently T8 and T9 right and left needles. After achieving adequate amount of cement stylets were reintroduced and left in place. A drill was inserted through the right and left T9 needles and a tract was created. Balloons were inserted through the needles and inflated to 300 psi for 5 minutes. Subsequently the balloons were deflated and freshly prepared cement was injected through the right and left needle under fluoroscopy. After achieving adequate amount of cement the stylet was reintroduced. All 6 needles were then removed after 10 minutes after injection and complete hemostasis achieved at the puncture site. Patient tolerated procedure extremely well. Sedation was provided by anesthesia department. FINDINGS: On preliminary imaging there is compression deformities along the inferior endplate of T7, T9 and T11 vertebra consistent with abnormal bone scan and abnormal lumbar spine x-ray 08/09/2023. There is opacification of right paravertebral anterior vein and T7 vertebra and minimal cement at the T9-T10 and T11-T12 disc segments during kyphoplasty. Patient was advised to consult referring physician to reduce steroid dose due to number of vertebral compression fractures. FLUOROSCOPY TIME: 29.6 minutes. DOSE AREA PRODUCT: 1348 cGy-cm2 (microgray-meter squared) IR/IR kyphoplasty thoracic IMPRESSION: Successful fluoroscopy-guided bipedicle approach T7, T9 and T11 kyphoplasty performed.
--- NOTE | ~2023-09-11 | IR_ITS ---
Kyphoplasty at T7, T9 and T11 vertebral was dictated on accession number [id number] [facility] on 09/12/2023..
--- NOTE | ~2023-09-11 | IR_ITS ---
Kyphoplasty at T7, T9 and T11 vertebral was dictated on accession number [id number] [facility] [place] on 09/12/2023..
--- NOTE | ~2023-09-11 | CT_ITS ---
EXAMINATION: CT thoracic spine prevertebral plasty. CLINICAL INDICATIONS: Compression fractures of T7, T9 and T11 vertebra. COMPARISON: Bone scan 08/30/2023. TECHNIQUE: 2 mm thin axial and reformatted 2 mm thin sagittal and coronal images of the dorsal spine were obtained from C6-C7 disc level to L2 vertebra. DLP [id number]. This CT examination was performed using dose optimization technique as appropriate, variously including the following: Automated exposure control Adjustment of MA and/or KV according to patient size(this includes techniques or standardized protocols for targeted exams where dose is matched to indication/reason for exam; extremities or head. Use of iterative reconstruction techniques. FINDINGS: Sagittal reconstructed images there is maintained thoracic kyphosis. There is mild superior endplate deformity T4 vertebra without any sclerosis likely old compression. There is inferior endplate compression deformity T7 wedge deformity T9 and an hour glass deformity of T11 vertebra with mild sclerosis consistent with acute compression fracture. There is no posterior spinal component causing any spinal canal stenosis. Rest of the vertebral heights are maintained. The spinal canal is capacious. The neural foramina are patent throughout dorsal spine. There is extensive henry seen in the posterior mediastinum from previous intervention. Focal atelectatic/consolidation changes are seen in the right lung base. CT/CT thoracic spine pre vert IMPRESSION: Acute T7, T9 and T11 compression fractures concordant with bone scan 08/30/2023. There is old superior endplate deformity T4 vertebra. No aggressive lytic or sclerotic process seen.
--- NOTE | 2023-09-11 10:14 | PC.NURSE ---
Dr. Suarez aware that patient took his ASA 81 mg yesterday and did not stop it x [address] Suarez okay to proceed today.
[2023-09-11 10:25] LABS: Glucose, Whole Blood 114 mg/dL (60-115)
[2023-09-11 10:34] LABS: MANUAL DIFF FLAG NO
[2023-09-11 10:36] LABS: Basophils Percent Auto 0.4 % (0-2); Eosinophils Absolute Auto 0.2 X10*3/uL (0.0-0.4); Eosinophils Percent Auto 2.4 % (0-4); Hematocrit 39.2 % (42.0-52.0); Hemoglobin 13.1 g/dl (14.0-18.0); Imm Gran Abs Auto 0.03 X10*3/uL (0.00-0.03); Imm Gran Pct Auto 0.4 % (0.0-0.4); Lymphocytes Absolute Auto 1.5 X10*3/uL (1.2-4.9); Lymphocytes Percent Auto 21.5 % (20-40); Mean Corpuscular HGB Conc 33.4 g/dl (31.0-36.0); Mean Corpuscular Hemoglobin 31.3 pg (27.0-33.0); Mean Corpuscular Volume 93.6 fL (80.0-98.0); Monocytes Absolute Auto 0.5 X10*3/uL (0.1-1.2); Monocytes Percent Auto 6.4 % (2-11); Neutrophils Absolute Auto 4.9 x10*3/uL (2.0-8.3); Neutrophils Percent Auto 68.9 % (45-73); Platelet Count 232 X10*3/uL (160-400); Red Blood Count 4.19 X10*6/uL (4.60-5.80); Red Cell Distribution Width 14.3 % (11.0-16.0); White Blood Count 7.1 X10*3/uL (4.8-10.8)
[2023-09-11] MEDS: Lactated Ringers 1,000 ML 50 ML IVCONT (10:39)
[2023-09-11 10:42] LABS: INTERNATIONAL NORM RATIO 0.9 (0.9-1.1); Prothrombin Time 11.5 SEC (11.1-13.3)
[2023-09-11 10:44] LABS: Partial Thromboplastin Time 35.1 SEC (26.0-36.4)
[2023-09-11 11:07] LABS: Alanine Aminotransferase 92 U/L (0-40); Albumin Level 3.9 g/dL (3.5-5.0); Alkaline Phosphatase 489 U/L (39-117); Anion Gap 12 (12-20); Aspartate Amino Transferase 46 U/L (5-37); Bilirubin Total 0.7 mg/dL (0.0-1.0); Blood Urea Nitrogen 34 mg/dL (9-16); Calcium 9.7 mg/dL (8.4-10.2); Carbon Dioxide 20 mmol/L (22-29); Chloride 110 mmol/L (96-108); Creatinine Clr Calc Pharmacy 70.5; Estimated Glomerular Filt Rate 55; Glucose Fasting 119 mg/dL (60-99); Magnesium 1.8 mg/dL (1.6-2.6); Potassium 5.2 mmol/L (3.3-5.1); Sodium 137 mmol/L (135-145); Total Protein 7.5 g/dL (6.5-8.0)
--- NOTE | 2023-09-11 11:30 | PC.NURSE ---
Second IV inserted to left wrist after Dr. Suarez visited with patient and updated patient for length of surgery. 20 gauge inserted. Patient has 2 Iv's now. Sophia Vargas RN aware as well as Dr. Caban.
[2023-09-11] MEDS: oxyCODONE HCl Immed Release 5 MG TABLET PO (14:53)
== END 2023-09-11 18:00 | disposition home or self-care (01) ==
LOC: HO.SSS 09:54
PROVIDERS: Anesthesiology; Physician Assistant Surgical; PCP Nurse Practitioner Family; Visit Provider Radiology Diagnostic Radiology
DX: M80.08XA Age-related osteoporosis with current pathological fracture, vertebra(e), initial encounter for fracture (principal); M54.50 Low back pain, unspecified; G89.29 Other chronic pain; S22.000A Wedge compression fracture of unspecified thoracic vertebra, initial encounter for closed fracture; Z94.4 Liver transplant status; I10 Essential (primary) hypertension; R73.9 Hyperglycemia, unspecified; Z79.899 Other long term (current) drug therapy
CPT/HCPCS: 22513; 22515; 36415; 72128; 80053; 82947; 83735; 85025; 85610; 85730; J0690; J2250; J3010; Q9967

== ENCOUNTER → 2023-09-11 11:15 | Outpatient (BNV) | payer OTHER, MEDICAID, SELFPAY | PROVIDERS: PCP Nurse Practitioner Family; Visit Provider Radiology Diagnostic Radiology | DX: S22.060A Wedge compression fracture of T7-T8 vertebra, initial encounter for closed fracture (principal); S22.070A Wedge compression fracture of T9-T10 vertebra, initial encounter for closed fracture; S22.080A Wedge compression fracture of T11-T12 vertebra, initial encounter for closed fracture | CPT/HCPCS: 22513; 22515 ==

== ENCOUNTER 2023-09-13 11:01 | Emergency (ER) | payer OTHER, MEDICAID, SELFPAY ==
[2023-09-13 11:04] VITALS: BP 117/84; PULSE 80; RESP 17; TEMP 37.2; O2SAT 98; BMI 32.0
--- NOTE | 2023-09-13 11:07 | ECG_ITS ---
Test Reason : HYPERKALEMIA Blood Pressure : / mmHG Vent. Rate : 090 BPM Atrial Rate : 090 BPM P-R Int : 192 ms QRS Dur : 094 ms QT Int : 358 ms P-R-T Axes : 039 -01 001 degrees QTc Int : 437 ms Normal sinus rhythm T-wave inversion in Inferior leads Nonspecific ST abnormality Abnormal ECG When compared with ECG of 04-JUN-2021 12:03, Nonspecific T wave abnormality no longer evident in Anterior leads ST more elevated in Lateral leads Referred By: Suhail Henriquez Electronically Signed By:LETICIA RAMIREZ MD
--- NOTE | 2023-09-13 11:08 | ED_ITS ---
HPI - General Adult General Chief complaint: Recheck/Abnormal Lab/Rx Stated complaint: High potassium sent by PCP Time Seen by Provider: 09/13/23 11:13 Source: patient Mode of arrival: ambulatory Limitations: no limitations History of Present Illness HPI narrative: Patient is a 57-year-old male with history of liver transplant in june of this year presenting to the emergency department after he was told that his potassium was elevated to 6.0 on labs drawn yesterday morning. Reports that he has basic labs drawn weekly. He denies any physical complaints. Denies any chest pain, palpitations, shortness of breath, dizziness, lightheadedness. MD complaint: Abnormal labs Onset (ago): day(s) Associated symptoms: denies other symptoms Treatments prior to arrival: none Related Data Home Medications Medication Instructions Recorded Confirmed furosemide 40 mg tablet 40 mg PO DAILY 03/30/23 hydroxyzine HCl 25 mg tablet 25 mg PO BEDTIME 05/05/23 ursodiol 500 mg tablet mg PO 05/05/23 aspirin 81 mg chewable tablet 1 tab PO DAILY 08/17/23 famciclovir 500 mg tablet 500 mg PO DAILY 08/17/23 magnesium oxide 400 mg (241.3 mg mg PO BID 08/17/23 magnesium) tablet mycophenolate mofetil 250 mg mg PO 08/17/23 capsule omeprazole 40 mg capsule,delayed 40 mg PO DAILY 08/17/23 release oxycodone 5 mg tablet mg PO 08/17/23 prednisone 5 mg tablet 10 mg PO BID 08/17/23 sodium di- and tab PO 08/17/23 monophosphate-potassium phos monobasic 250 mg tablet (Phospha Neutral) tacrolimus 1 mg capsule, mg PO 08/17/23 immediate-release ursodiol 300 mg capsule 600 mg PO BID 08/17/23 alcohol swabs (Easy Touch Alcohol pad topical BID 08/18/23 Prep Pads) blood sugar diagnostic (FreeStyle #10 ea 08/18/23 Lite Strips) blood-glucose meter (FreeStyle #1 ea 08/18/23 Lite Meter kit) ciprofloxacin HCl 500 mg tablet 500 mg PO DAILY 08/18/23 docusate sodium 100 mg capsule 100 mg PO BID 08/18/23 lancets 28 gauge (FreeStyle #100 ea 08/18/23 Lancets) potassium chloride 20 mEq meq PO 08/18/23 tablet,extended release(part/cryst) sennosides 8.6 mg capsule (senna) 8.6 mg PO BEDTIME 08/18/23 sulfamethoxazole 400 1 tab PO BEDTIME 08/18/23 mg-trimethoprim 80 mg tablet (Bactrim) vitamin A 3,000 mcg (10,000 unit) 1 cap PO DAILY 08/18/23 capsule Previous Rx's Medication Instructions Recorded sodium,potassium,mag sulfates 17.5 See Rx Instructions PO .COMPLEX 09/16/22 gram-3.13 gram-1.6 gram oral soln #354 mL (Suprep Bowel Prep Kit) calcium carbonate 500 mg calcium 500 mg PO BID #60 tabs 05/24/23 (1,250 mg) tablet sertraline 25 mg tablet 25 mg PO DAILY #90 tabs 05/26/23 blood-glucose sensor (FreeStyle #2 ea 08/17/23 Danae 3 Sensor device) insulin glargine 100 unit/mL (3 8 unit (0.08 mL) subcut QPM 30 08/17/23 mL) subcutaneous pen (Lantus days #2.4 mL Solostar U-100 Insulin) pen needle, diabetic 31 gauge x #100 ea 08/17/23 5/32 oxycodone 5 mg tablet 5 mg PO BID PRN pain 7 days #14 09/05/23 tabs Allergies Allergy/AdvReac Type Severity Reaction Status Date / Time No Known Allergies Allergy Verified 09/11/23 10:25 [No Known Allergies*] Review of Systems 2 Review of Systems: As per HPI. 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 Surgical History (Updated 09/12/23 @ 12:26 by MALVIN Higuera-URIAH) S/P kyphoplasty Liver transplanted Hx of colonoscopy History of esophagogastroduodenoscopy (EGD) Family History Family History Sister History of liver cancer Father Substance use disorder Social History Social History Household Members: Spouse Household Members Other:: 2 Housing: House Do you presently have visiting nurse or other home services: No Alcohol intake: never Patient Tobacco Use Status: Never used Tobacco Tobacco use type: Cigar e-Cigarette/Vaping Use: Never Used Second Hand Smoke Exposure: No Advance Directives: Yes Advance Directives on File: Yes Advance Directives Date on File: 12/31/21 service: No Current occupational status: disabled Cognitive needs: No Hearing needs: No Vision needs: No Physical Exam ED Vital Signs: Vital Signs - 24 hr 09/13/23 11:04 Temperature 98.9 F Pulse Rate 80 Respiratory Rate 17 Blood Pressure 117/84 Pulse Oximetry 98 Oxygen Delivery Method Room Air BMI result Body Mass Index 32.0 Vital signs have been reviewed and appear to be correct. Blood pressure normal. Heart rate normal. Respiratory rate normal. Temperature normal. Oxygen saturation normal. Const General: cooperative, healthy appearing and no acute distress Orientation/consciousness: oriented to person, oriented to place, oriented to time and patient oriented x3 Limitations: no limitations HENMT Head: Yes normocephalic and Yes atraumatic Ears: external ears normal General nose exam: Normal external nose present Face and sinus: Yes face symmetric Mouth: oropharynx normal and moist mucous membranes Throat: Yes uvula midline Eyes Pupils: Equal, round and reactive pupils present Neck Neck: Yes normal visual inspection and Yes supple Resp Effort & Inspection: normal respiratory effort and able to speak in complete sentences Auscultation: clear to auscultation bilaterally Cardio Rate: regular rate Rhythm: regular rhythm Heart sounds: S1 normal heart sound present and S2 normal heart sound present GI Palpation (GI): Soft to palpation and nontender Auscultation: normoactive bowel sounds General: Yes no CVA tenderness Back/Spine/Pelvis Back: no CVA tenderness Skin General skin exam: elasticity normal and turgor normal Neuro General: oriented to person, oriented to place, oriented to time, patient oriented x3, moves all extremities, no focal motor deficits and CN's II-XI intact bilaterally Cranial nerves: Yes Equal, round and reactive pupils present Cognition (Neuro): normal cognition Extrem General: Yes full ROM, Yes no pedal edema and Yes no calf tenderness Psych Mental Status: mental status grossly normal Affect: normal affect Thought process: Normal thought process present Course Course Course Narrative: RME: 57 yold male presents to the ED for abmnormal labs. patient was sent by PCP for potassium of 6 from labs that was done couple of days ago. patient states no chest pain or shortness of breath. labs and ekg ordered Medical Decision Making Medical Decision Making [facility] Narrative: Patient is a 57-year-old male with history of liver transplant in june of this year presenting to the emergency department after he was told that his potassium was elevated to 6.0 on labs drawn yesterday morning. On exam patient is awake, A+Ox3, VS WNL, afebrile, normal neurological exam without focal deficits, physical exam findings as above. Given reported symptoms and physical exam findings, initial differential includes hyperkalemia, other electrolyte abnormality, cardiac dysrhythmia. Labs notable for potassium of 4.9, elevated BUN consistent with prior, elevated LFTs consistent with prior, mild anemia, no other significant abnormalities. Given that potassium is normal here and patient denies any complaints, feel patient is stable for discharge home with follow-up with his PCP. Return precautions discussed at bedside. Patient verbalized understanding of and agreement plan. Differential Diagnosis Differential Diagnoses: The differential diagnosis associated with the presentation includes As per [facility]. Admission/Observation Consideration of admission/observation: Escalation of care including admission/observation considered Lab Data [facility] Lab Attestation statement: I reviewed the patient's lab results. As per [facility] 09/13/23 11:34 09/13/23 11:34 Labs: Lab Results 09/13/23 Range/Units 11:34 WBC 6.8 (4.8-10.8) X10*3/uL RBC 4.07 L (4.60-5.80) X10*6/uL Hgb 12.8 L (14.0-18.0) g/dl Hct 38.3 L (42.0-52.0) % MCV 94.1 (80.0-98.0) fL MCH 31.4 (27.0-33.0) pg MCHC 33.4 (31.0-36.0) g/dl RDW 14.3 (11.0-16.0) % Plt Count 195 (160-400) X10*3/uL MPV 8.9 L (9.4-12.4) fL Immature Gran % (Auto) 0.3 (0.0-0.4) % Neut % (Auto) 69.8 (45-73) % Lymph % (Auto) 20.4 (20-40) % Oliver % (Auto) 7.0 (2-11) % Eos % (Auto) 2.1 (0-4) % Baso % (Auto) 0.4 (0-2) % Lymph # (Auto) 1.4 (1.2-4.9) X10*3/uL Oliver # (Auto) 0.5 (0.1-1.2) X10*3/uL Eos # (Auto) 0.1 (0.0-0.4) X10*3/uL Baso # (Auto) 0.0 (0.0-0.2) X10*3/uL Abs Immat Gran (auto) 0.02 (0.00-0.03) X10*3/uL Absolute Neuts (auto) 4.8 (2.0-8.3) x10*3/uL Absolute Nucleated RBC 0.000 (0.0-0.012) X10*3/uL Nucleated RBC % (auto) 0.0 (0.0-0.2) /100WBC Sodium 137 (135-145) mmol/L Potassium 4.9 (3.3-5.1) mmol/L Chloride 108 (96-108) mmol/L Carbon Dioxide 20 L (22-29) mmol/L Anion Gap 14 (12-20) BUN 33 H (9-16) mg/dL Creatinine 1.31 (0.5-1.4) mg/dL Estim Creat Clear Calc 70.5 Estimated GFR 57 Random Glucose 232 H (60-115) mg/dL Calcium 9.7 (8.4-10.2) mg/dL Magnesium 1.6 (1.6-2.6) mg/dL Total Bilirubin 0.5 (0.0-1.0) mg/dL AST 18 (5-37) U/L ALT 43 H (0-40) U/L Alkaline Phosphatase 392 H (39-117) U/L Total Protein 7.3 (6.5-8.0) g/dL Albumin 3.7 (3.5-5.0) g/dL Independent Interpretation I performed an independent interpretation of an: EKG Interpretation: Normal sinus rhythm, rate 90 beats per minute, normal CO and QT intervals External Record Review External record reviewed: Inpatient record, Office record and Outpatient record Discharge Plan Discharge Clinical Impression: Abnormal laboratory test Patient Disposition: Home, Self-Care Additional Instructions: You were evaluated in the emergency department today for reported elevated potassium on labs drawn on 09/12/2023. Your labs redrawn today in your potassium was normal at 4.9. Please follow-up with your primary care provider. Return to the emergency department if you experience chest pain, shortness of breath, palpitations, dizziness, lightheadedness, or any other concerning symptoms. Prescriptions: No Action calcium carbonate 500 mg calcium (1,250 mg) tablet 500 mg PO BID Qty: 60 3RF sertraline 25 mg tablet 25 mg PO DAILY Qty: 90 1RF (DME) pen needle, diabetic 31 gauge x 5/32 needle See Rx Instructions .Route Qty: 100 1RF Rx Instructions: Use daily to inject insulin (DME) FreeStyle Danae 3 Sensor Device See Rx Instructions .Route Qty: 2 5RF Rx Instructions: As directed oxycodone 5 mg tablet 5 mg PO BID PRN (Reason: pain) 7 Days Qty: 14 0RF Rx Instructions: Partial Fill upon patient request. prednisone 5 mg tablet 10 mg PO BID oxycodone 5 mg tablet PO tacrolimus 1 mg capsule PO aspirin 81 mg tablet,chewable 1 tab PO DAILY ursodiol 300 mg capsule 600 mg PO BID famciclovir 500 mg tablet 500 mg PO DAILY omeprazole 40 mg capsule,delayed release(DR/EC) 40 mg PO DAILY mycophenolate mofetil 250 mg capsule PO magnesium oxide 400 mg (241.3 mg magnesium) tablet PO BID Phospha 250 Neutral 250 mg tablet PO insulin glargine [Lantus Solostar U-100 Insulin] 100 unit/mL (3 mL) insulin pen 8 unit subcut QPM 30 Days Qty: 2.4 2RF furosemide 40 mg tablet 40 mg PO DAILY sodium,potassium,mag sulfates [Suprep Bowel Prep Kit] 17.5-3.13-1.6 gram recon soln See Rx Instructions PO .COMPLEX Qty: 354 0RF Rx Instructions: DILUTE; drink 1/2 at 6-8 pm and half at 11 PM- 1AM ursodiol 500 mg tablet PO hydroxyzine HCl 25 mg tablet 25 mg PO BEDTIME (DME) blood-glucose meter [FreeStyle Lite Meter] Kit See Rx Instructions .ROUTE .MEDSUPPLY Qty: 1 Rx Instructions: As directed potassium chloride 20 mEq tablet,ER particles/crystals PO alcohol swabs [Easy Touch Alcohol Prep Pads] Pads, Medicated topical BID (DME) lancets [FreeStyle Lancets] 28 gauge misc See Rx Instructions .ROUTE BID Qty: 100 Rx Instructions: As directed (DME) FreeStyle Lite Strips Strip See Rx Instructions .ROUTE BID Qty: 10 Rx Instructions: As directed ciprofloxacin HCl 500 mg tablet 500 mg PO DAILY vitamin A 3,000 mcg (10,000 unit) capsule 1 cap PO DAILY sulfamethoxazole-trimethoprim [Bactrim] 400-80 mg tablet 1 tab PO BEDTIME docusate sodium 100 mg capsule 100 mg PO BID senna 8.6 mg capsule 8.6 mg PO BEDTIME Discharge Date/Time: 09/13/23 12:52
[2023-09-13 11:40] LABS: Basophils Percent Auto 0.4 % (0-2); Eosinophils Absolute Auto 0.1 X10*3/uL (0.0-0.4); Eosinophils Percent Auto 2.1 % (0-4); Hematocrit 38.3 % (42.0-52.0); Hemoglobin 12.8 g/dl (14.0-18.0); Imm Gran Abs Auto 0.02 X10*3/uL (0.00-0.03); Imm Gran Pct Auto 0.3 % (0.0-0.4); Lymphocytes Absolute Auto 1.4 X10*3/uL (1.2-4.9); Lymphocytes Percent Auto 20.4 % (20-40); Mean Corpuscular HGB Conc 33.4 g/dl (31.0-36.0); Mean Corpuscular Hemoglobin 31.4 pg (27.0-33.0); Mean Corpuscular Volume 94.1 fL (80.0-98.0); Mean Platelet Volume 8.9 fL (9.4-12.4); Monocytes Absolute Auto 0.5 X10*3/uL (0.1-1.2); Neutrophils Absolute Auto 4.8 x10*3/uL (2.0-8.3); Neutrophils Percent Auto 69.8 % (45-73); Platelet Count 195 X10*3/uL (160-400); Red Blood Count 4.07 X10*6/uL (4.60-5.80); Red Cell Distribution Width 14.3 % (11.0-16.0); White Blood Count 6.8 X10*3/uL (4.8-10.8)
[2023-09-13 11:44] LABS: MANUAL DIFF FLAG NO
[2023-09-13 11:53] LABS: Alanine Aminotransferase 43 U/L (0-40); Albumin Level 3.7 g/dL (3.5-5.0); Alkaline Phosphatase 392 U/L (39-117); Anion Gap 14 (12-20); Aspartate Amino Transferase 18 U/L (5-37); Bilirubin Total 0.5 mg/dL (0.0-1.0); Blood Urea Nitrogen 33 mg/dL (9-16); Calcium 9.7 mg/dL (8.4-10.2); Carbon Dioxide 20 mmol/L (22-29); Chloride 108 mmol/L (96-108); Creatinine Clr Calc Pharmacy 70.5; Estimated Glomerular Filt Rate 57; Glucose Random 232 mg/dL (60-115); Magnesium 1.6 mg/dL (1.6-2.6); Potassium 4.9 mmol/L (3.3-5.1); Sodium 137 mmol/L (135-145); Total Protein 7.3 g/dL (6.5-8.0)
== END 2023-09-13 12:52 | disposition home or self-care (01) ==
PROVIDERS: Physician Assistant; Emergency Provider Emergency Medicine; PCP Nurse Practitioner Family
DX: R79.89 Other specified abnormal findings of blood chemistry (principal); I10 Essential (primary) hypertension; K74.60 Unspecified cirrhosis of liver; K76.0 Fatty (change of) liver, not elsewhere classified; D64.9 Anemia, unspecified; Z94.4 Liver transplant status; Z79.82 Long term (current) use of aspirin; Z79.4 Long term (current) use of insulin; Z79.899 Other long term (current) drug therapy
CPT/HCPCS: 36415; 80053; 83735; 85025; 93005; 99283; 99284

== ENCOUNTER 2023-09-27 09:21 | Outpatient (AMB) | payer OTHER, MEDICAID, SELFPAY ==
--- NOTE | 2023-09-27 09:24 | MHC.PC.OV ---
Vital Signs 09/27/23 09:27 Height 5 ft 8 in Weight 210 lb BMI 31.9 BP 110/70 Blood Pressure Location Lt brachial Position Sitting Pulse 70 Pulse Source Pulse Oximeter Pulse Oximetry (%) 98 Oxygen Delivery Method Room Air Intake Visit Reasons: Follow Up On Back Surgery Allergies No Known Allergies [No Known Allergies*] Allergy (Verified 09/27/23 09:28) Tobacco use date assessed: 08/17/23 HPI Follow Up On Back Surgery HPI Details Pt underwent a kyphoplasty at T7, 9, and 11 on 09/11. He reports doing well overall. 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 Surgical History S/P kyphoplasty Liver transplanted Hx of colonoscopy History of esophagogastroduodenoscopy (EGD) Family History Sister History of liver cancer Father Substance use disorder Social History Household Members: Spouse Household Members Other:: 2 Housing: House Do you presently have visiting nurse or other home services: No Alcohol intake: never Patient Tobacco Use Status: Never used Tobacco Tobacco use type: Cigar e-Cigarette/Vaping Use: Never Used Second Hand Smoke Exposure: No Advance Directives Date on File: 12/31/21 service: No Current occupational status: disabled Cognitive needs: No Hearing needs: No Vision needs: No Questionnaire Thrive Questionnaire Date Thrive assessed: 03/30/23 MARGE-7 AMB Questionnaire MARGE-7 Date MARGE - 7 assessed: 03/30/23 Source: Developed by Drs. Frantz Mora, Sophia Monroe, Elmer Calle and colleagues, with an educational nacho from [employer]. Physical exam (Primary Care) Vital Signs: Last Vital Signs Pulse 70 09/27/23 09:27 BP 110/70 09/27/23 09:27 Pulse Ox 98 09/27/23 09:27 Oxygen Delivery Method Room Air 09/27/23 09:27 BMI result Body Mass Index 31.9 Tobacco/Smoking Status: Tobacco use Status Tobacco use date assessed 08/17/23 09/27/23 09:26 Patient Tobacco Use Status Never used Tobacco 09/27/23 09:26 Tobacco use type Cigar 09/27/23 09:26 e-Cigarette/Vaping Use Never Used 09/27/23 09:26 Thrive Assessment: Date of Thrive Assessment Date Thrive assessed 03/30/23 09/27/23 09:26 Const General: cooperative Nutritional Appearance: obese Orientation/consciousness: patient oriented x3 Resp Auscultation: clear to auscultation bilaterally Cardio Rate: regular rate Rhythm: regular rhythm Heart sounds: S1 normal heart sound present and S2 normal heart sound present Back/Spine/Pelvis Other: thoracic back with 4 very small scabbed lap sites, no signs of infection Neuro General: patient oriented x3 Psych Appearance: grossly normal Mental Status: mental status grossly normal Speech and movement: Normal speech and movement present Affect: normal affect Attitude: cooperative Thought process: Normal thought process present Thought content: Normal thought content present Insight: Good insight present (Psych) Judgement: Good judgement present (Psych) Assessment and Plan Assessment & Plan (1) Compression fx, thoracic spine: Code(s): S22.000A - Wedge compression fracture of unspecified thoracic vertebra, initial encounter for closed fracture Plan The patient agreed to the use of a medical office administrator for this encounter. Scribed for ANDREA Jean-Baptiste by Lisette Osullivan medical office administrator, on 09/27/2023 at 09:40 EST. Coding Level of Care Code Est Pt Level 3 (32969) Diagnoses Compression fx, thoracic spine S22.000A
[2023-09-27 09:27] VITALS: BP 110/70; PULSE 70; O2SAT 98; BMI 31.9
== END 2023-09-27 09:55 | disposition home or self-care (01) ==
PROVIDERS: PCP Nurse Practitioner Family; Visit Provider Nurse Practitioner Family
DX: S22.000A Wedge compression fracture of unspecified thoracic vertebra, initial encounter for closed fracture (principal)
CPT/HCPCS: 99213

== ENCOUNTER 2023-10-16 11:31 | Outpatient (AMB) | payer OTHER, MEDICAID, SELFPAY ==
--- NOTE | 2023-10-16 11:33 | A.OFFVIS_ITS ---
Intake Vital Signs 10/16/23 11:35 Height 5 ft 8 in Weight 216 lb 0.848 oz BMI 32.8 BP 120/80 Blood Pressure Location Lt brachial Position Sitting Pulse 94 Intake Visit Reasons: 4 month follow up Intake Note: Yaya presents in the office as a 4 month follow up. Allergies No Known Allergies [No Known Allergies*] Allergy (Verified 10/16/23 11:36) HPI 4 month follow up HPI Details 57 yr old m here for f/u RECAP: hx of PSC and liver cirrhosis, prior alcohol xs following Mass gen for liver transplant evaluation. disease complicated by ascites and SBP in the past needing occasional therapeutic paracentesis also has UC managed with entyvio labs prior with severe vit A def not drinking alcohol (stopped 09/2020) or smoking. US 06/2022- minimal ascites, OTHER DATA: MRCP 2021: lymphadenopathy, cirrhosis, ascites, cholelithiasis, ahaustral colon MRCP 12/2020--PSc, cirrhosis, no liver masses, or lesions EGD 07/2020--varices EGD/Colonoscopy 09/2022- Endoscopy Findings: portal hypertensive gastropathy enteropathy small varices Colonoscopy Findings: polyp internal hemorrhoids diverticular disease features of chronic colitis and sequelae of healing Path: chronic mild inactive and active colitis on bx, no dysplasia, hyperplastic polyp I did w/u for worsening LFT ascitic fluid neg for SBP--only 1.9 L removed UA and culture pos for staph warneri--initially sent cipro due to pos UA but then sent bactrim once got confirmation on organism vedolizumab levels were v good HE finally had his liver transplant 06/2023--recovering well INTERIM: no complaints no symptoms of colitis, occ gas symptoms no fevers or chills no cough or sputum no hematuria or rectal bleeding he has apptm for removal of biliary stent in Oct EXAM: GENERAL: The patient is alert, VITAL SIGNS:see workflow HEENT: normal sclerae, PERRLA, EOMI. Oropharynx clear. Moist mucous membranes. Conjunctivae appear well perfused. No thyroid mass. CHEST: Chest wall is nontender. HEART: Regular rate and rhythm without murmurs. LUNGS: Clear to auscultation bilaterally. ABDOMEN: Soft but distended, positive bowel sounds, nontender, no organomegaly.no flank tenderness--scar noted SKIN: No rash, no excessive bruising, petechiae, or purpura. NEUROLOGIC: Cranial nerves II-XII intact without motor/sensory deficit. A/P: 1/ Cirrhosis related to alcohol and? PSC --no s/p liver transplant 2/ coagulopathy related to 1/ above in t he past--not an issue now 3/ UC--on entyvio--seems to be in clinic al remission--high risk for colon cancer--now off entyvio PLAN: 1/ Check stool lactoferrin--if high may need to restart entyvio 2/ imaging-has this arranged at [facility]? 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 Surgical History S/P kyphoplasty Liver transplanted Hx of colonoscopy History of esophagogastroduodenoscopy (EGD) Family History Sister History of liver cancer Father Substance use disorder Household Members: Spouse Household Members Other:: 2 Housing: House Do you presently have visiting nurse or other home services: No Alcohol intake: never Patient Tobacco Use Status: Never used Tobacco Tobacco use type: Cigar e-Cigarette/Vaping Use: Never Used Second Hand Smoke Exposure: No Advance Directives Date on File: 12/31/21 service: No Current occupational status: disabled Cognitive needs: No Hearing needs: No Vision needs: No Physical Exam Vital Signs: Last Vital Signs Pulse 94 10/16/23 11:35 BP 120/80 10/16/23 11:35 BMI result Body Mass Index 32.8 Assessment & Plan Assessment & Plan (1) IBD (inflammatory bowel disease): Code(s): K52.9 - Noninfective gastroenteritis and colitis, unspecified (2) Advanced hepatic cirrhosis: Code(s): K74.60 - Unspecified cirrhosis of liver Orders: Orders Lactoferrin, Fecal, Quant. Today K51.50 - Left sided colitis without complications Coding Level of Care Code Est Pt Level 4 (17266) Diagnoses IBD (inflammatory bowel disease) K52.9 Advanced hepatic cirrhosis K74.60
[2023-10-16 11:35] VITALS: BP 120/80; PULSE 94; BMI 32.8
== END 2023-10-16 12:42 | disposition home or self-care (01) ==
PROVIDERS: PCP Nurse Practitioner Family; Visit Provider Internal Medicine Gastroenterology
DX: K52.9 Noninfective gastroenteritis and colitis, unspecified (principal); K74.60 Unspecified cirrhosis of liver
CPT/HCPCS: 99214

== ENCOUNTER → 2023-10-16 11:31 | Outpatient (BNVA) | payer OTHER, MEDICAID, SELFPAY | PROVIDERS: PCP Nurse Practitioner Family; Visit Provider Internal Medicine Gastroenterology ==

== ENCOUNTER 2023-11-01 11:09 | Outpatient (AMB) | payer OTHER, SELFPAY ==
--- NOTE | 2023-11-01 11:18 | A.OFFPC_ITS ---
Vital Signs 11/01/23 11:20 Height 5 ft 8 in Weight 225 lb BMI 34.2 BP 140/80 H Blood Pressure Location Rt brachial Position Sitting Pulse 66 Pulse Source Pulse Oximeter Pulse Oximetry (%) 99 Oxygen Delivery Method Room Air Intake Visit Reasons: Lower back Pain Allergies No Known Allergies [No Known Allergies*] Allergy (Verified 11/01/23 12:46) Medication List - Last Reconciled 11/01/23 by CARLY HigueraP-BC alcohol swabs (Easy Touch Alcohol Prep Pads) pad topical BID aspirin 1 tab PO DAILY atovaquone mg PO blood sugar diagnostic (FreeStyle Lite Strips) As directed blood-glucose meter (FreeStyle Lite Meter kit) As directed blood-glucose sensor (FreeStyle Danae 3 Sensor device) As directed calcium carbonate 500 mg PO BID docusate sodium 100 mg PO BID famciclovir 500 mg PO DAILY hydroxyzine HCl 25 mg PO BEDTIME insulin glargine (Lantus Solostar U-100 Insulin) 8 units (0.08 mL) subcut QPM lancets (FreeStyle Lancets) As directed magnesium oxide mg PO BID mycophenolate mofetil mg PO omeprazole 40 mg PO DAILY oxycodone 5 mg PO BID PRN 7 days pen needle, diabetic Use daily to inject insulin prednisone 10 mg PO BID sennosides (senna) 8.6 mg PO BEDTIME sertraline 25 mg PO DAILY sod phos di, mono-K phos mono 250 mg (Phospha Neutral) tabs PO sodium,potassium,mag sulfates 17.5-3.13-1.6 gram (Suprep Bowel Prep Kit) DILUTE; drink 1/2 at 6-8 pm and half at 11 PM- 1AM tacrolimus mg PO ursodiol 600 mg PO BID Tobacco use date assessed: 08/17/23 HPI Lower back Pain HPI Details Pt c/o lower back pain. He denies any radicular symptoms. He had an XR on 08/17/23 which showed a moderate T11 anterior wedge compression fracture. There is mild degenerative disc disease at T10-T11 and T11-T12. The lumbar disc spaces are well-maintained. Pt underwent a kyphoplasty at T7, T9 and T11 vertebral on 09/11. Will order repeat XRs of thoracic and lumbar spines. Denies any signs of cauda equina. Pt is a diabetic. Due for A1C and microalbumin, will order. Denies polyuria, polydipsia, and neuropathy. Pt denies any signs and symptoms of hypoglycemia and does know how to correct it. Pt is not taking his insulin, encouraged him to take this at night. He also stopped using his sensor, highly encouraged pt to use this. Pt is only checking his blood sugar twice a week and is eating a lot of sweets. He has not had an eye exam recently, will refer. Pt reports pain in his RLL area. Will order chest XR. WIll follow up with him in less than 1 month [facility] Medical History Osteoporosis Ascites Hepatic encephalopathy Coagulopathy Advanced hepatic cirrhosis Fatty liver Alcohol abuse Hypoalbuminemia Ulcerative colitis Coagulopathy Anemia 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 Surgical History S/P kyphoplasty Liver transplanted Hx of colonoscopy History of esophagogastroduodenoscopy (EGD) Family History Sister History of liver cancer Father Substance use disorder Social History Household Members: Spouse Household Members Other:: 2 Housing: House Do you presently have visiting nurse or other home services: No Alcohol intake: never Comment: OVERFLOW Patient Tobacco Use Status: Never used Tobacco Tobacco use type: Cigar e-Cigarette/Vaping Use: Never Used Second Hand Smoke Exposure: No Advance Directives Date on File: 12/31/21 service: No Current occupational status: disabled Cognitive needs: No Hearing needs: No Vision needs: No Questionnaire Thrive Questionnaire Date Thrive assessed: 03/30/23 MARGE-7 AMB Questionnaire MARGE-7 Date MARGE - 7 assessed: 03/30/23 Source: Developed by Drs. Frantz Mora, Sophia Monroe, Elmer Calle and colleagues, with an educational nacho from [employer]. Review of Systems Const Reports as per HPI Physical exam (Primary Care) Vital Signs: Last Vital Signs Pulse 66 11/01/23 11:20 BP 140/80 H 11/01/23 11:20 Pulse Ox 99 11/01/23 11:20 Oxygen Delivery Method Room Air 11/01/23 11:20 BMI result Body Mass Index 34.2 Tobacco/Smoking Status: Tobacco use Status Tobacco use date assessed 08/17/23 11/01/23 11:19 Patient Tobacco Use Status Never used Tobacco 11/01/23 11:19 Tobacco use type Cigar 11/01/23 11:19 e-Cigarette/Vaping Use Never Used 11/01/23 11:19 Thrive Assessment: Date of Thrive Assessment Date Thrive assessed 03/30/23 11/01/23 11:19 Const Other: walking with a cane General: cooperative Nutritional Appearance: obese Orientation/consciousness: patient oriented x3 Resp Other: moving air bilat Effort & Inspection: normal respiratory effort Cardio Rate: regular rate Rhythm: regular rhythm Heart sounds: S1 normal heart sound present, S2 normal heart sound present and Murmur heart sound present systolic (faint) Neuro General: patient oriented x3 Extrem Other: bilat feet: + sensation with use of monofilament, feet are dry, onychomycosis noted bilat. no exacerbation of lower back pain with palpation. with standing up, lower thoracic and upper lumbar back pain noted Psych Appearance: grossly normal Mental Status: mental status grossly normal Speech and movement: Normal speech and movement present Affect: normal affect Attitude: cooperative Thought process: Normal thought process present Thought content: Normal thought content present Insight: Good insight present (Psych) Judgement: Good judgement present (Psych) Assessment and Plan Assessment & Plan (1) Lumbar back pain: Code(s): M54.50 - Low back pain, unspecified Plan: XR ordered (2) Compression fx, thoracic spine: Code(s): S22.000A - Wedge compression fracture of unspecified thoracic vertebra, initial encounter for closed fracture Plan: XR ordered (3) Diabetes: Code(s): E11.9 - Type 2 diabetes mellitus without complications Plan: Labs ordered (4) Back pain: Code(s): M54.9 - Dorsalgia, unspecified Plan The patient agreed to the use of a emergency medical dispatcher for this encounter. Scribed for ANDREA Jean-Baptiste by Lisette Osullivan emergency medical dispatcher, on 11/01/2023 at 11:35 EST. Orders: Orders XR lumbar spine 2-3V Today M54.50 - Low back pain, unspecified Complete Blood Count Auto Diff Today E11.9 - Type 2 diabetes mellitus without complications UA CC w/rflx Micro + Cult Today E11.9 - Type 2 diabetes mellitus without complications Hemoglobin A1c Today E11.9 - Type 2 diabetes mellitus without complications Microalbumin, Random (w Creat) Today E11.9 - Type 2 diabetes mellitus without complications XR chest 2V Today M54.9 - Dorsalgia, unspecified XR thoracic spine 2V Today S22.000A - Wedge compression fracture of unspecified thoracic vertebra, initial encounter for closed fracture Comprehensive [place]. Panel Fast Today E11.9 - Type 2 diabetes mellitus without complications TSH reflex Free T4 Today E11.9 - Type 2 diabetes mellitus without complications Referrals Nurse Navigator Referral E11.9 - Type 2 diabetes mellitus without complications Ophthalmology Referral E11.9 - Type 2 diabetes mellitus without complications Coding Level of Care Code Est Pt Level 3 (39182) Diagnoses Lumbar back pain M54.50 Compression fx, thoracic spine S22.000A Diabetes E11.9 Back pain M54.9
[2023-11-01 11:20] VITALS: BP 140/80; PULSE 66; O2SAT 99; BMI 34.2
== END 2023-11-01 13:58 | disposition home or self-care (01) ==
PROVIDERS: PCP Nurse Practitioner Family; Visit Provider Nurse Practitioner Family
DX: M54.50 Low back pain, unspecified (principal); S22.000A Wedge compression fracture of unspecified thoracic vertebra, initial encounter for closed fracture; E11.9 Type 2 diabetes mellitus without complications; M54.9 Dorsalgia, unspecified
CPT/HCPCS: 99213

== ENCOUNTER 2023-11-01 12:05 | Outpatient (REF) | payer OTHER, SELFPAY ==
--- NOTE | ~2023-11-01 | XR_ITS ---
EXAMINATION: XR LUMBOSACRAL SPINE CLINICAL INFORMATION: Low back pain, unspecified COMPARISON: Lumbar spine 08/17/2023 TECHNIQUE: Three views of the lumbosacral spine. FINDINGS: There is bony demineralization. There are 5 nonrib-bearing lumbar-type vertebral bodies. There is moderate T11 anterior wedge compression fracture with interval kyphoplasty. There is no spondylolisthesis. The height of the lumbar disc spaces is well-maintained. There is mild posterior narrowing of the T11-T12 disc space. There is multilevel degenerative facet joint disease most marked at L4-L5. Multiple upper abdominal surgical clips are seen. Tubing projects over the right upper quadrant. XR/XR lumbar spine 2-3V IMPRESSION: 1. Moderate T11 anterior wedge compression fracture with interval kyphoplasty. 2. Multilevel degenerative facet joint disease, most marked at L4-L5. 3. Mild degenerative disc disease at T11-T12.
--- NOTE | ~2023-11-01 | XR_ITS ---
EXAMINATION: XR CHEST CLINICAL INFORMATION: Back pain. COMPARISON: Chest of 12/30/2021. CT thoracic spine 09/11/2023. Chest radiographs 08/06/2021. TECHNIQUE: 2 views of the chest were obtained. FINDINGS: Lung volumes are low. There is no gross pneumothorax. Cardiac silhouette possibly borderline enlarged, but difficult to evaluate due to low lung volumes. Innumerable surgical clips and dense material in the upper abdomen. Dense material characteristic of kyphoplasty in cervical spine likely at levels T7, T9 and T11 compression fractures which were identified on CT thoracic spine of 09/11/2023. Please refer to separate report for radiographs of the thoracolumbar spine of the same date for more detailed evaluation. Mild streaky opacities at the right lung base may represent subsegmental atelectasis versus pneumonia. XR/XR chest 2V IMPRESSION: 1. Cardiac silhouette possibly borderline enlarged, but difficult to evaluate due to low lung volumes. 2. Dense material characteristic of kyphoplasty in cervical spine likely at levels T7 T9 and T11 compression fractures which were identified on CT thoracic spine of 09/11/2023. 3. Mild streaky opacities at the right lung base may represent subsegmental atelectasis versus pneumonia.
--- NOTE | ~2023-11-01 | XR_ITS ---
EXAMINATION: XR THORACOLUMBAR SPINE CLINICAL INFORMATION: Wedge compression fracture of unspecified thoracic vertebrae COMPARISON: Thoracic spine 08/31/2023 TECHNIQUE: 3 views of the thoracic spine FINDINGS: There is bony demineralization. There is transitional anatomy with 13 rib bearing thoracic type vertebral bodies. Hypoplastic ribs at the lowermost thoracic type segment. There has been interval kyphoplasty of severe compression fractures of T7, T9 and T11. There is mild compression of the T4 and T10 vertebral body. Alignment is normal. The posterior elements appear intact. The paravertebral soft tissues are unremarkable. Multiple surgical clips are seen in the upper abdomen. Multilevel degenerative disc disease is seen in the lower cervical spine. XR/XR thoracic spine 2V IMPRESSION: 1. Interval kyphoplasty of severe compression fractures of T7, T9 and T11. 2. Mild compression of the T4 and T10 vertebral bodies.
== END 2023-11-01 12:06 | disposition home or self-care (01) ==
LOC: HO.HMGCX 12:05
PROVIDERS: PCP Nurse Practitioner Family; Visit Provider Nurse Practitioner Family
DX: M54.9 Dorsalgia, unspecified (principal); M54.50 Low back pain, unspecified; S22.000A Wedge compression fracture of unspecified thoracic vertebra, initial encounter for closed fracture
CPT/HCPCS: 71046; 72070; 72100

== ENCOUNTER 2023-11-10 09:10 | Outpatient (REF) | payer OTHER, SELFPAY ==
[2023-11-10 11:09] LABS: MANUAL DIFF FLAG NO
[2023-11-10 11:14] LABS: Basophils Percent Auto 0.7 % (0-2); Eosinophils Absolute Auto 0.2 X10*3/uL (0.0-0.4); Eosinophils Percent Auto 3.4 % (0-4); Hematocrit 41.4 % (42.0-52.0); Hemoglobin 13.3 g/dl (14.0-18.0); Imm Gran Abs Auto 0.02 X10*3/uL (0.00-0.03); Imm Gran Pct Auto 0.5 % (0.0-0.4); Lymphocytes Absolute Auto 1.2 X10*3/uL (1.2-4.9); Lymphocytes Percent Auto 26.9 % (20-40); Mean Corpuscular HGB Conc 32.1 g/dl (31.0-36.0); Mean Corpuscular Volume 93.5 fL (80.0-98.0); Mean Platelet Volume 9.6 fL (9.4-12.4); Monocytes Absolute Auto 0.4 X10*3/uL (0.1-1.2); Monocytes Percent Auto 9.8 % (2-11); Neutrophils Absolute Auto 2.6 x10*3/uL (2.0-8.3); Neutrophils Percent Auto 58.7 % (45-73); Platelet Count 240 X10*3/uL (160-400); Red Blood Count 4.43 X10*6/uL (4.60-5.80); Red Cell Distribution Width 13.2 % (11.0-16.0); White Blood Count 4.4 X10*3/uL (4.8-10.8)
[2023-11-10 11:57] LABS: Estimated Average Glucose 146 mg/dL; Hemoglobin A1c % 6.7 % (<6.0)
[2023-11-10 12:09] LABS: Alanine Aminotransferase 16 U/L (0-40); Alkaline Phosphatase 175 U/L (39-117); Anion Gap 12 (12-20); Aspartate Amino Transferase 13 U/L (5-37); Bilirubin Total 0.3 mg/dL (0.0-1.0); Blood Urea Nitrogen 21 mg/dL (9-16); Calcium 9.2 mg/dL (8.4-10.2); Carbon Dioxide 25 mmol/L (22-29); Chloride 109 mmol/L (96-108); Estimated Glomerular Filt Rate > 60; Glucose Fasting 99 mg/dL (60-99); Potassium 4.4 mmol/L (3.3-5.1); Sodium 142 mmol/L (135-145); Total Protein 7.2 g/dL (6.5-8.0)
[2023-11-10 12:19] LABS: Appearance Urine Clear; Color Urine Yellow; Glucose Urine UA Negative (Negative); Leukocyte Esterase Urine Negative (Negative); Nitrite Urine Negative (Negative); PH 5.5 (5.0-9.0); Specific Gravity - Urine 1.025 (1.005-1.025); Urine Blood Negative (Negative); Urine Ketones Negative (Negative); Urine Protein Negative (Neg-Trace)
[2023-11-10 12:27] LABS: TSH reflex Free T4 1.75 uIU/mL (0.32-4.0)
[2023-11-10 12:34] LABS: Creatinine Urine 194.95 mg/dL; Microalbum/Creatinine Ratio Ur 5.6 ug/mg cr (<30)
== END 2023-11-10 09:11 | disposition home or self-care (01) ==
LOC: HO.HMGCLDS 09:10
PROVIDERS: PCP Nurse Practitioner Family; Visit Provider Nurse Practitioner Family
DX: E11.9 Type 2 diabetes mellitus without complications (principal)
CPT/HCPCS: 36415; 80053; 81003; 82043; 82570; 83036; 84443; 85025

== ENCOUNTER 2023-11-23 08:29 | Outpatient (REF) | payer OTHER, SELFPAY ==
[2023-11-29 20:12] LABS: Lactoferrin, Fecal, Quant. 8.58 mcg/mL (<7.25)
== END 2023-11-23 08:30 | disposition home or self-care (01) ==
LOC: HO.LNP 08:29
PROVIDERS: Visit Provider Internal Medicine Gastroenterology
DX: K51.50 Left sided colitis without complications (principal)
CPT/HCPCS: 83631

== ENCOUNTER 2024-01-17 07:53 | Day surgery (SDC) | payer OTHER, SELFPAY ==
--- NOTE | 2024-01-16 11:56 | HO.ANESPROP2 ---
Documented by User: Noemí Reid NP 01/16/24 12:04 HPI - Anesthesia Eval Consult details Narrative: 56yo M for Colonoscopy s/p liver transplant 06/2023. Hx ETOH with advanced cirrhosis and coagulopathy. [place] [facility] [place] Last office visit 01/01/24 s/p same day ERCP with stent removal. PMFSH Active Problems Active Problems: All Active Problems (Updated 11/01/23 @ 11:52 by MALVIN Higuera-URIAH) Back pain (Acute) Diabetes (Acute) Lumbar back pain (Acute) Osteoporosis (Acute) Abnormal radionuclide bone scan (Acute) Hip fracture, left (Acute) Abnormal bone scan of thoracic spine (Acute) Compression fx, thoracic spine (Acute) HTN (hypertension) (Acute) Chronic lower back pain (Acute) UTI (urinary tract infection) (Acute) Ascites (Acute) IBD (inflammatory bowel disease) (Acute) Edema (Acute) Major depression, recurrent, chronic (Acute) Advanced hepatic cirrhosis (Acute) Overgrown toenails (Acute) Hepatorenal syndrome (Acute) Bacteremia due to Enterobacter species (Acute) Sepsis (Acute) Colitis (Acute) Acute sinusitis (Acute) Cough (Acute) Elevated blood sugar level (Acute) Hypomagnesemia (Acute) Hepatic encephalopathy (Acute) Cholestatic pruritus (Acute) Physical exam (Acute) Screening PSA (prostate specific antigen) (Acute) Murmur, heart (Acute) Vegetarian (Acute) Hypoalbuminemia (Acute) Coagulopathy (Acute) 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 (Acute) Past Medical History Medical History Osteoporosis Ascites Hepatic encephalopathy Coagulopathy Advanced hepatic cirrhosis Fatty liver Alcohol abuse Hypoalbuminemia Ulcerative colitis Coagulopathy Anemia 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 Family History Family History Sister History of liver cancer Father Substance use disorder Family history of problems with anesthesia: No Surgical History Surgical History S/P kyphoplasty Liver transplanted Hx of colonoscopy History of esophagogastroduodenoscopy (EGD) History of Problems with Anesthesia: No Social History Social History Household Members: Spouse Household Members Other:: 2 Housing: House Do you presently have visiting nurse or other home services: No Alcohol intake: never Comment: OVERFLOW Patient Tobacco Use Status: Former Tobacco user Quit Date: 5 months Tobacco use type: Cigar e-Cigarette/Vaping Use: Never Used Second Hand Smoke Exposure: No Use of substances other than those prescribed or required for medical reasons: No Are you DNR?: No Advance Directives: No Advance Directives Information Provided: Yes Advance Directives Date on File: 12/31/21 service: No Current occupational status: disabled Cognitive needs: No Hearing needs: No Vision needs: No Meds Allergies Allergy/AdvReac Type Severity Reaction Status Date / Time No Known Allergies Allergy Verified 11/01/23 12:46 [No Known Allergies*] Home Medications Medication Instructions Recorded Confirmed Last Taken Type aspirin 81 mg chewable tablet 1 tab PO DAILY 08/17/23 01/17/24 Unknown History famciclovir 500 mg tablet 500 mg PO DAILY 08/17/23 01/17/24 Unknown History magnesium oxide 400 mg (241.3 mg 800 mg PO TID 08/17/23 01/17/24 Unknown History magnesium) tablet mycophenolate mofetil 250 mg 750 mg PO BID 08/17/23 01/17/24 Unknown History capsule omeprazole 40 mg capsule,delayed 40 mg PO DAILY 08/17/23 01/17/24 Unknown History release prednisone 5 mg tablet 5 mg PO DAILY 08/17/23 01/17/24 Unknown History sodium di- and tab PO 08/17/23 11/01/23 Unknown History monophosphate-potassium phos monobasic 250 mg tablet (Phospha Neutral) tacrolimus 1 mg capsule, mg PO 08/17/23 11/01/23 Unknown History immediate-release ursodiol 300 mg capsule 600 mg PO BID 08/17/23 11/01/23 Unknown History alcohol swabs (Easy Touch Alcohol pad topical BID 08/18/23 11/01/23 Unknown History Prep Pads) blood sugar diagnostic (FreeStyle #10 ea 08/18/23 11/01/23 Unknown History Lite Strips) blood-glucose meter (FreeStyle #1 ea 08/18/23 11/01/23 Unknown History Lite Meter kit) lancets 28 gauge (FreeStyle #100 ea 08/18/23 11/01/23 Unknown History Lancets) sennosides 8.6 mg capsule (senna) 8.6 mg PO BEDTIME 08/18/23 11/01/23 Unknown History atovaquone 750 mg/5 mL oral 750 mg PO DAILY 09/27/23 01/17/24 Unknown History suspension Exam Pertinent Lab Results Pertinent Lab Results: 12/25/23 [place] [facility] [place] W[place] CMP WNL except BUN elevated (27) and Alk Phos elevated (154) Narrative Narrative: EKG 08/2023 Vent. Rate : 090 BPM Atrial Rate : 090 BPM P-R Int : 192 ms QRS Dur : 094 ms QT Int : 358 ms P-R-T Axes : 039 -01 001 degrees QTc Int : 437 ms Normal sinus rhythm T-wave inversion in Inferior leads Nonspecific ST abnormality Abnormal ECG When compared with ECG of 04-JUN-2021 12:03, Nonspecific T wave abnormality no longer evident in Anterior leads ST more elevated in Lateral leads Assessment and Plan Assessment Anesthesia Assessment: Chart Reviewed Final Anesthetic Review Family History of Problems with Anesthesia: No History of Problems with Anesthesia: No Documented by User: Ashley Haywood MD 01/17/24 08:53 PMFSH Past Medical History Medical History Osteoporosis Ascites Hepatic encephalopathy Coagulopathy Advanced hepatic cirrhosis Fatty liver Alcohol abuse Hypoalbuminemia Ulcerative colitis Coagulopathy Anemia 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 Family History Family History Sister History of liver cancer Father Substance use disorder Surgical History Surgical History S/P kyphoplasty Liver transplanted Hx of colonoscopy History of esophagogastroduodenoscopy (EGD) Social History Social History Household Members: Spouse Household Members Other:: 2 Housing: House Do you presently have visiting nurse or other home services: No Alcohol intake: never Comment: OVERFLOW Patient Tobacco Use Status: Former Tobacco user Quit Date: 5 months Tobacco use type: Cigar e-Cigarette/Vaping Use: Never Used Second Hand Smoke Exposure: No Use of substances other than those prescribed or required for medical reasons: No Are you DNR?: No Advance Directives: No Advance Directives Information Provided: Yes Advance Directives Date on File: 12/31/21 service: No Current occupational status: disabled Cognitive needs: No Hearing needs: No Vision needs: No Meds Allergies Allergy/AdvReac Type Severity Reaction Status Date / Time No Known Allergies Allergy Verified 11/01/23 12:46 [No Known Allergies*] Home Medications Medication Instructions Recorded Confirmed Last Taken Type aspirin 81 mg chewable tablet 1 tab PO DAILY 08/17/23 01/17/24 Unknown History famciclovir 500 mg tablet 500 mg PO DAILY 08/17/23 01/17/24 Unknown History magnesium oxide 400 mg (241.3 mg 800 mg PO TID 08/17/23 01/17/24 Unknown History magnesium) tablet mycophenolate mofetil 250 mg 750 mg PO BID 08/17/23 01/17/24 Unknown History capsule omeprazole 40 mg capsule,delayed 40 mg PO DAILY 08/17/23 01/17/24 Unknown History release prednisone 5 mg tablet 5 mg PO DAILY 08/17/23 01/17/24 Unknown History sodium di- and tab PO 08/17/23 11/01/23 Unknown History monophosphate-potassium phos monobasic 250 mg tablet (Phospha Neutral) tacrolimus 1 mg capsule, mg PO 08/17/23 11/01/23 Unknown History immediate-release ursodiol 300 mg capsule 600 mg PO BID 08/17/23 11/01/23 Unknown History alcohol swabs (Easy Touch Alcohol pad topical BID 08/18/23 11/01/23 Unknown History Prep Pads) blood sugar diagnostic (FreeStyle #10 ea 08/18/23 11/01/23 Unknown History Lite Strips) blood-glucose meter (FreeStyle #1 ea 08/18/23 11/01/23 Unknown History Lite Meter kit) lancets 28 gauge (FreeStyle #100 ea 08/18/23 11/01/23 Unknown History Lancets) sennosides 8.6 mg capsule (senna) 8.6 mg PO BEDTIME 08/18/23 11/01/23 Unknown History atovaquone 750 mg/5 mL oral 750 mg PO DAILY 09/27/23 01/17/24 Unknown History suspension Exam Airway Mallampati Class: III TM Dist: >3cm Neck ROM: Limited Heart: rrr Lungs: cta Assessment and Plan Assessment Anesthesia Assessment: Anesthesia Plan Discussed Final Anesthetic Review NPO: Yes ASA Class: III Final Preanesthetic Review: No Changes in Pt Med Stat, Meds/Allgs Chart Reviewed, Consent Obtained/Reviewed and Anes Risks/Benef Reviewed Patient Risk: Intermediate Procedure Risk: Low Anesthetic Plan Anesthetic Plan: MAC: Disposition: Standard PACU
[2024-01-17 08:19] VITALS: BMI 35.0
[2024-01-17 08:59] VITALS: BP 111/88; PULSE 82; RESP 18; TEMP 36.2; O2SAT 98
[2024-01-17] MEDS: Lactated Ringers 1,000 ML 100 ML IVCONT (09:01)
--- NOTE | 2024-01-17 09:19 | MHC.SHP ---
Pre-Procedural Eval Section A - 24 Hr Update-Section A only Date of Service: 01/17/24 Section B - Complete if H&P > 30 days Chief Complaint: Noninfective gastroenteritis and colitis, unspecif Details of Present Illness: hx of IBD, screening Relevant Family History (Specify if Yes): No Relevant Social History: None Present Medications: see Short Stay Collaborative assessment Medical History: Significant History (Osteoporosis Ascites Hepatic encephalopathy Coagulopathy Advanced hepatic cirrhosis Fatty liver Alcohol abuse Hypoalbuminemia Ulcerative colitis Coagulopathy Anemia 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) History of Previous Operations: Relevant previous surgery/procedure and date(s) ( S/P kyphoplasty Liver transplanted Hx of colonoscopy History of esophagogastroduodenoscopy (EGD)) Allergies: Allergies Allergy/AdvReac Type Severity Reaction Status Date / Time No Known Allergies Allergy Verified 11/01/23 12:46 [No Known Allergies*] Review of Systems Sugical H&P ROS: Negative: Constitution, Cardiovascular, Respiratory, Neurological, Psychiatric, Hem-Onc, Allergic/Immunologic, Gastrointestinal, Genitourinary, Musculoskeletal, Integumentary, Endocrine and Eyes/Ears/Nose/Throat Exam Surgical H&P Exam: Normal: HEENT, Normal: Heart, Normal: Lungs, Normal: Extremities, Normal: Abdomen, Normal: Skin and Normal: Neurological Plan Diagnosis/Plan: Unchanged I have reviewed the history and physical and performed a pertinent physical examination on my patient. No changes have occurred unless specified. Time Spent With Patient Time: Total time managing care of this patient today ____ minutes.
--- NOTE | 2024-01-17 09:20 | W.PM.OPN ---
Operative Note Operative Note Date of Service: 01/17/24 Narrative: Operative Information Procedure Description: Colonoscopy Indication: screening Anesthesia: MAC COLONOSCOPY Instrument: Olympus variable stiffness ADULT scope 190L Colonoscopy Monitoring: Vital signs and clinical assessment, continuous EKG monitoring, Pulse oximetry, Carbon Dioxide monitoring and blood pressure monitoring were done throughout the procedure. Colon withdrawal time was 12 minutes. Procedure: The patient was placed in the left lateral decubitis position and pre-procedure medications were administered. After a digital rectal examination of the ano-rectum, the video colonoscope was inserted into the rectum and advanced through the colon to the cecum/TI. The colonoscope was slowly withdrawn in a retrograde panoramic fashion and the colon mucosa was carefully examined including a retroflexed view of the rectum. Findings and interventions are described below. Procedure Difficulty: easy Findings: Terminal Ileum- normal- bx taken Cecum: patchy erythema with erosions and micro abscesses, bx taken Ascending Colon: patchy erythema, bx taken Transverse Colon - patchy erythema and erosions with granular mucosa, bx taken Descending Colon: moderate diverticulosis, patchy erythema and erosions, fibrotic appearing mucosa, bx taken Sigmoid Colon: moderate severe diverticulosis, patchy erythema, erosions, superficial ulcerations, bx taken, mucosa is fibrotic Rectum: Retroflexion with small internal hemorrhoids, grade I, patchy erythema with fibrotic mucosa, erosions, bx taken Anorectum - normal Colon preparation: [place] Bowel Preparation Scale Right colon; 2 Transverse colon: 3 Left colon; 3 (0 = Unprepared colon segment with mucosa not seen due to solid stool that cannot be cleared. 1 = Portion of mucosa of the colon segment seen, but other areas of the colon segment not well seen due to staining, residual stool and/or opaque liquid. 2 = Minor amount of residual staining, small fragments of stool and/or opaque liquid, but mucosa of colon segment seen well. 3 = Entire mucosa of colon segment seen well with no residual staining, small fragments of stool or opaque liquid) Impression and Post Procedure Diagnosis: active dowell colitis internal hemorrhoids diverticular disease Plan: High fiber diet leaflet Avoid straining at stool, epsom salts and sitz bath, anusol supps or cream Repeat Colonoscopy in 1 year or earlier if clinically indicated, next time methylene blue but restart entyvio first Above findings were reviewed with the patient and relevant handouts were provided if indicated.
[2024-01-17 10:00] VITALS: BP 92/59; PULSE 83; RESP 16; TEMP 36.1; O2SAT 99
[2024-01-17 10:15] VITALS: BP 109/59; PULSE 73; RESP 16; TEMP 37; O2SAT 99
--- NOTE | 2024-01-17 10:49 | PC.NURSE ---
patient verbalized understanding of instructions from dr. darling regarding stool sample and has materials.
== END 2024-01-17 10:42 | disposition home or self-care (01) ==
PROVIDERS: PCP Nurse Practitioner Family; Visit Provider Internal Medicine Gastroenterology
PROC: 0DJD8ZZ Inspection of Lower Intestinal Tract, Via Natural or Artificial Opening Endoscopic (ICD-10-PCS; CPT 45378; principal; 2024-01-17 10:10)
DX: Z12.11 Encounter for screening for malignant neoplasm of colon (principal); K52.9 Noninfective gastroenteritis and colitis, unspecified; K63.0 Abscess of intestine; K51.00 Ulcerative (chronic) pancolitis without complications; K57.30 Diverticulosis of large intestine without perforation or abscess without bleeding; K64.0 First degree hemorrhoids; K74.60 Unspecified cirrhosis of liver; K76.82 Hepatic encephalopathy; K76.0 Fatty (change of) liver, not elsewhere classified; Z94.4 Liver transplant status; E88.09 Other disorders of plasma-protein metabolism, not elsewhere classified; M81.0 Age-related osteoporosis without current pathological fracture; D64.9 Anemia, unspecified; F10.11 Alcohol abuse, in remission; I10 Essential (primary) hypertension; E11.9 Type 2 diabetes mellitus without complications; Z87.891 Personal history of nicotine dependence; Z79.82 Long term (current) use of aspirin; Z79.52 Long term (current) use of systemic steroids; Z79.899 Other long term (current) drug therapy
CPT/HCPCS: 45380; 88305; J2704

== ENCOUNTER → 2024-01-17 07:53 | Outpatient (BNV) | payer OTHER, SELFPAY | PROVIDERS: PCP Nurse Practitioner Family; Visit Provider Internal Medicine Gastroenterology | DX: Z12.11 Encounter for screening for malignant neoplasm of colon (principal); K57.90 Diverticulosis of intestine, part unspecified, without perforation or abscess without bleeding; K64.8 Other hemorrhoids | CPT/HCPCS: 45380 ==

== ENCOUNTER 2024-01-18 | Outpatient (REF) | payer OTHER, SELFPAY ==
[2024-01-19 10:36] LABS: CDiff Gene PCR NEGATIVE (Negative)
[2024-01-24 18:44] LABS: Lactoferrin, Fecal, Quant. 22.01 mcg/mL (<7.25)
== END 2024-01-18 00:01 | disposition home or self-care (01) ==
LOC: HO.LNP
PROVIDERS: Visit Provider Internal Medicine Gastroenterology
DX: K51.50 Left sided colitis without complications (principal); K52.9 Noninfective gastroenteritis and colitis, unspecified
CPT/HCPCS: 83631; 87493

== ENCOUNTER 2024-01-20 09:49 | Outpatient (REF) | payer OTHER, SELFPAY | END 2024-01-20 09:50 | disposition home or self-care (01) | LOC: HO.LNP 09:49 | PROVIDERS: Visit Provider Internal Medicine Gastroenterology | DX: Z13.89 Encounter for screening for other disorder (principal) | CPT/HCPCS: 87507 ==

== ENCOUNTER 2024-01-24 09:00 | Outpatient (REF) | payer OTHER, SELFPAY ==
[2024-01-24 12:54] LABS: Adenovirus F 40/41 Not Detected (Not Detect.); Astrovirus Not Detected (Not Detect.); Campylobacter Not Detected (Not Detect.); Cryptosporidium Not Detected (Not Detect.); Cyclospora cayetanensis Not Detected (Not Detect.); E. coli EAEC Not Detected (Not Detect.); E. coli EPEC Not Detected (Not Detect.); E. coli ETEC Not Detected (Not Detect.); E. coli STEC Not Detected (Not Detect.); Entamoeba histolytica Not Detected (Not Detect.); Giardia lamblia Not Detected (Not Detect.); Norovirus GI/GII Not Detected (Not Detect.); Plesiomonas shigelloides Not Detected (Not Detect.); Rotavirus A Not Detected (Not Detect.); Salmonella Not Detected (Not Detect.); Sapovirus Not Detected (Not Detect.); Shigella sp./EIEC Not Detected (Not Detect.); Vibrio Not Detected (Not Detect.); Vibrio Cholerae Not Detected (Not Detect.); Yersinia enterocolitica Not Detected (Not Detect.)
== END 2024-01-24 09:01 | disposition home or self-care (01) ==
LOC: HO.LNP 09:00
PROVIDERS: Visit Provider Internal Medicine Gastroenterology
DX: K52.9 Noninfective gastroenteritis and colitis, unspecified (principal)
CPT/HCPCS: 87507

== ENCOUNTER 2024-02-02 09:55 | Outpatient (AMB) | payer OTHER, SELFPAY ==
--- NOTE | 2024-02-02 10:02 | MHC.OFFVIS ---
Intake Vital Signs 02/02/24 10:03 Height 5 ft 8 in Weight 235 lb 14.314 oz BMI 35.9 BP 116/86 Blood Pressure Location Lt brachial Position Sitting Pulse 71 Intake Visit Reasons: f/u Colonoscopy Intake Note: Yaya presents in the office as a follow up colonoscopy. 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 disease complicated by ascites and SBP in the past needing occasional therapeutic paracentesis also has UC managed with entyvio labs prior with severe vit A def not drinking alcohol (stopped 09/2020) or smoking. US 06/2022- minimal ascites, OTHER DATA: MRCP 2021: lymphadenopathy, cirrhosis, ascites, cholelithiasis, ahaustral colon MRCP 12/2020--PSc, cirrhosis, no liver masses, or lesions EGD 07/2020--varices EGD/Colonoscopy 09/2022- Endoscopy Findings: portal hypertensive gastropathy enteropathy small varices Colonoscopy Findings: polyp internal hemorrhoids diverticular disease features of chronic colitis and sequelae of healing Path: chronic mild inactive and active colitis on bx, no dysplasia, hyperplastic polyp I did w/u for worsening LFT ascitic fluid neg for SBP--only 1.9 L removed UA and culture pos for staph warneri--initially sent cipro due to pos UA but then sent bactrim once got confirmation on organism vedolizumab levels were v good HE finally had his liver transplant 06/2023-- repeat colonoscopy;01/17/24; chronic colitis and inflamamtion, lactoferrin elevated at 22 INTERIM: no complaints no symptoms of colitis, but admits to foamy stool and urgency at times occ gas symptoms no fevers or chills no cough or sputum no hematuria or rectal bleeding EXAM: GENERAL: The patient is alert, VITAL SIGNS:see workflow HEENT: normal sclerae, PERRLA, EOMI. Oropharynx clear. Moist mucous membranes. Conjunctivae appear well perfused. No thyroid mass. CHEST: Chest wall is nontender. HEART: Regular rate and rhythm without murmurs. LUNGS: Clear to auscultation bilaterally. ABDOMEN: Soft but distended, positive bowel sounds, nontender, no organomegaly.no flank tenderness--scar noted SKIN: No rash, no excessive bruising, petechiae, or purpura. NEUROLOGIC: Cranial nerves II-XII intact without motor/sensory deficit. A/P: 1/ Cirrhosis related to alcohol and? 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 Surgical History S/P kyphoplasty Liver transplanted Hx of colonoscopy History of esophagogastroduodenoscopy (EGD) Family History Sister History of liver cancer Father Substance use disorder Social History Household Members: Spouse Household Members Other:: 2 Housing: House Do you presently have visiting nurse or other home services: No Alcohol intake: never Comment: OVERFLOW Patient Tobacco Use Status: Former Tobacco user Quit Date: 5 months Tobacco use type: Cigar e-Cigarette/Vaping Use: Never Used Second Hand Smoke Exposure: No Advance Directives Date on File: 12/31/21 service: No Current occupational status: disabled Cognitive needs: No Hearing needs: No Vision needs: No Physical Exam Vital Signs: Last Vital Signs Pulse 71 02/02/24 10:03 BP 116/86 02/02/24 10:03 BMI result Body Mass Index 35.9 Assessment & Plan Assessment & Plan (1) IBD (inflammatory bowel disease): Code(s): K52.9 - Noninfective gastroenteritis and colitis, unspecified Plan: see above Coding Level of Care Code Est Pt Level 3 (50985) Diagnoses IBD (inflammatory bowel disease) K52.9
[2024-02-02 10:03] VITALS: BP 116/86; PULSE 71; BMI 35.9
== END 2024-02-02 10:22 | disposition home or self-care (01) ==
PROVIDERS: PCP Nurse Practitioner Family; Visit Provider Internal Medicine Gastroenterology
DX: K52.9 Noninfective gastroenteritis and colitis, unspecified (principal)
CPT/HCPCS: 99213

== ENCOUNTER → 2024-02-02 09:55 | Outpatient (BNVA) | payer OTHER, SELFPAY | PROVIDERS: PCP Nurse Practitioner Family; Visit Provider Internal Medicine Gastroenterology ==

== ENCOUNTER 2024-04-08 10:54 | Outpatient (AMB) | payer OTHER, SELFPAY ==
--- NOTE | 2024-04-08 10:56 | A.OFFPC_ITS ---
Vital Signs 04/08/24 11:00 Height 5 ft 8.5 in Weight 257 lb BMI 38.5 BP 110/80 Blood Pressure Location Rt brachial Position Sitting Pulse 76 Pulse Source Pulse Oximeter Pulse Oximetry (%) 98 Oxygen Delivery Method Room Air Intake Visit Reasons: PE Intake Note: Patient here for physical exam. He would like to discuss referral to podiatry PSA: 2021 Allergies No Known Allergies [No Known Allergies*] Allergy (Verified 04/08/24 11:00) Medication List - Last Reconciled 04/08/24 by ANDREA Higuera alcohol swabs (Easy Touch Alcohol Prep Pads) pad topical BID aspirin 1 tab PO DAILY atovaquone 750 mg PO DAILY blood sugar diagnostic (FreeStyle Lite Strips) As directed blood-glucose meter (FreeStyle Lite Meter kit) As directed blood-glucose sensor (MyLikesStyle Danae 3 Sensor device) As directed calcium carbonate 500 mg PO BID famciclovir 500 mg PO DAILY insulin glargine (Lantus Solostar U-100 Insulin) 8 units (0.08 mL) subcut QPM lancets (FreeStyle Lancets) As directed magnesium oxide 800 mg PO TID mycophenolate mofetil 750 mg PO BID omeprazole 40 mg PO DAILY pen needle, diabetic Use daily to inject insulin prednisone 5 mg PO DAILY sennosides (senna) 8.6 mg PO BEDTIME sertraline 25 mg PO DAILY sod phos di, mono-K phos mono 250 mg (Phospha Neutral) tabs PO sodium,potassium,mag sulfates 17.5-3.13-1.6 gram (Suprep Bowel Prep Kit) DILUTE; drink 1/2 at 6-8 pm and half at 11 PM- 1AM tacrolimus mg PO ursodiol 600 mg PO BID Tobacco use date assessed: 04/08/24 Dental Screening Dental Screen Date: 04/08/24 Did you have a dental visit in the last 12 months?: No Did you have a dental problem in the last 6 months where you did not have access to dental care?: No Was dental information given to patient?: Patient has dentist HPI PE HPI Details Pt is here for a PE. Will order labs. Colon screen is up to date. Due for PSA, will order. Denies dribbling with urination, weak stream, and does have frequent nocturia (though drinks a lot of fluids). Pt is a diabetic. A1C in office today is . Microalbumin is up to date. Denies polyuria, polydipsia, and does get intermittent neuropathy. Pt denies any signs and symptoms of hypoglycemia and does know how to correct it. Eye exam is up to date. Pt has a glucose sensor. 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 Surgical History S/P kyphoplasty Liver transplanted Hx of colonoscopy History of esophagogastroduodenoscopy (EGD) Family History Sister History of liver cancer Father Substance use disorder Social History Household Members: Spouse Household Members Other:: 2 Housing: House Do you presently have visiting nurse or other home services: No Alcohol intake: never Comment: OVERFLOW Patient Tobacco Use Status: Former Tobacco user Quit Date: 5 months Tobacco use type: Cigar e-Cigarette/Vaping Use: Never Used Second Hand Smoke Exposure: No Advance Directives Date on File: 12/31/21 service: No Current occupational status: disabled Cognitive needs: No Hearing needs: No Vision needs: No Questionnaire PHQ-9 Over the last 2 weeks, how often have you been bothered by any of the following problems? 1. Little interest or pleasure in doing things: several days 2. Feeling down, depressed, or hopeless: several days 3. Trouble falling or staying asleep, or sleeping too much: several days 4. Feeling tired or having little energy: more than half the days 5. Poor appetite or overeating: several days 6. Feeling bad about yourself - or that you are a failure or have let yourself or your family down: several days 7. Trouble concentrating on things, such as reading the newspaper or watching television: several days 8. Moving or speaking so slowly that other people could have noticed. Or the opposite - being so fidgety or restless that you have been moving around a lot more than usual: not at all 9. Thoughts that you would be better off or of hurting yourself in some way: not at all Total score: 8 Depression Screening Interpretation: Negative Depression Screening Done: Yes 17328 - PHQ-9 Billing: Yes Source: Developed by Drs. Frantz Mora, Sophia Monroe, Elmer Calle and colleagues, with an educational nacho from [email or web address]. Thrive Questionnaire Date Thrive assessed: 03/30/23 I am a: Patient What is your living situation today?: I have a steady place to live Within the past 12 months, did the food you bought not last and you didn't have the money to get more?: Sometimes True Within the past 12 months, did you worry whether your food would run out before you got money to buy more?: Sometimes True Do you have trouble paying for medicines?: No Do you have trouble getting transportation to medical appointments?: No Do you have trouble paying your heating and electricity bill?: No Do you have trouble taking care of your child, family member or friend?: No Do you have trouble with day-to-day activities such as bathing, preparing meals, shopping, managing finances, etc.?: No Are you currently unemployed and looking for a job?: No Are you interested in more education?: No Currently or been in a relationship where the following occur: I choose not to answer this question THRIVE Score: 2 AUDIT C Alcohol Use Questionnaire (AUDIT-C) 1. How often do you have a drink containing alcohol?: Never 3. How often do you have six or more drinks on one occasion?: Never Total Score: 0 Score Reviewed/Action Taken: No MARGE-7 AMB Questionnaire MARGE-7 Date MARGE - 7 assessed: 04/08/24 Feeling nervous, anxious, or on edge: 2 = More than half the days Not being able to stop or control worryin = More than half the days Worrying too much about different things: 2 = More than half the days Trouble relaxin = More than half the days Being so restless that it is hard to sit still: 1 = Several days Becoming easily annoyed or irritable: 1 = Several days Feeling afraid as if something awful might happen: 2 = More than half the days Total MARGE-7 score (0-4 normal; 5-9 mild; 10-14 moderate; 15-21 severe): 12 Source: Developed by Drs. Frantz Mora, Sophia Monroe, Elmer Calle and colleagues, with an educational nacho from [email or web address]. MARGE-7 Assessment Billing MARGE-7 Assessment Tool: MARGE-7 Assessment 56013 Review of Systems Const Denies chills and Denies fever(s) Eyes Denies blurry vision ENT Denies vertigo, Denies dizziness and Denies sore throat Card Denies chest pain at rest, Denies chest pain with activity, Denies diaphoresis, Denies dyspnea and Denies dyspnea on exertion Resp Denies cough, Denies dyspnea, Denies dyspnea on exertion and Denies wheezing GI Denies abdominal pain, Denies melena, Denies hematochezia, Denies constipation, Denies diarrhea and Denies loose stools Denies hematuria Musc Denies numbness and Denies tingling Skin/Breast Denies lesions Neuro Denies vertigo, Denies dizziness, Denies numbness and Denies tingling Psych Denies anxiety, Denies depression, Denies homicidal ideation, Denies suicidal ideation and Denies other (substance abuse) Aller/Immun Denies wheezing Physical exam (Primary Care) Vital Signs: Last Vital Signs Pulse 76 04/08/24 11:00 BP 110/80 04/08/24 11:00 Pulse Ox 98 04/08/24 11:00 Oxygen Delivery Method Room Air 04/08/24 11:00 BMI result Body Mass Index 38.5 Tobacco/Smoking Status: Tobacco use Status Tobacco use date assessed 04/08/24 04/08/24 11:06 Patient Tobacco Use Status Former Tobacco user 04/08/24 10:56 Tobacco use type Cigar 04/08/24 10:56 e-Cigarette/Vaping Use Never Used 04/08/24 10:56 PHQ-9: PHQ-9 Score PHQ-9: Total score 8 04/08/24 11:12 Depression Screening Interpretation: Negative Thrive Assessment: Date of Thrive Assessment Date Thrive assessed 03/30/23 04/08/24 10:56 Currently or been in a relationship where the following occur: I choose not to answer this question Const General: cooperative Nutritional Appearance: obese Orientation/consciousness: patient oriented x3 HENMT Head: Yes normal to inspection, Yes normocephalic and Yes atraumatic Ears: TM's normal bilaterally Eyes General: appearance normal, both eyes and all related structures Alignment and Position: alignment normal and position normal Neck Neck: Yes normal visual inspection and Yes no lymphadenopathy Thyroid: Thyroid normal Resp Effort & Inspection: normal respiratory effort Auscultation: clear to auscultation bilaterally Cardio Rate: regular rate Rhythm: regular rhythm Heart sounds: S1 normal heart sound present, S2 normal heart sound present and no murmurs GI Palpation (GI): Soft to palpation and nontender Auscultation: normal bowel sounds Male General Exam: Yes normal external exam Penis: normal penis Scrotum: scrotum normal, testes descended bilaterally and no inguinal hernias Testes: no testicular mass Skin Rashes: no rashes Neuro General: patient oriented x3, moves all extremities, no focal motor deficits and deep tendon reflexes 2+ bilaterally Romberg Test: Negative Extrem Other: bilat feet: some lack of sensation with use of monofilament, feet intact, extensive onychomycosis noted bilat Right lower extremity: edema (trace) Left lower extremity: edema (trace) Psych Appearance: grossly normal Mental Status: mental status grossly normal Speech and movement: Normal speech and movement present Affect: normal affect Attitude: cooperative Thought process: Normal thought process present Thought content: Normal thought content present Insight: Good insight present (Psych) Judgement: Good judgement present (Psych) Results AMB Hemoglobin A1c AMB Hemoglobin A1c 6.5 % Last Edit by BIMAL Beaulieu on 04/08/24 11 :25 Assessment and Plan Assessment & Plan (1) Encounter for routine adult physical exam with abnormal findings: Code(s): Z00.01 - Encounter for general adult medical examination with abnormal findings Plan: Labs ordered (2) Screening PSA (prostate specific antigen): Code(s): Z12.5 - Encounter for screening for malignant neoplasm of prostate Plan: PSA ordered (3) Diabetes: Code(s): E11.9 - Type 2 diabetes mellitus without complications Plan: Labs ordered (4) Onychomycosis: Code(s): B35.1 - Tinea unguium Plan: Referred to podiatry Plan The patient agreed to the use of a medical claims representative for this encounter. Scribed for HOOD Jean-BaptisteBC by Lisette Osullivan medical claims representative, on 04/08/2024 at 11:10 EST. Orders: Orders Comprehensive Muse. Panel Fast Today Z00.01 - Encounter for general adult medical examination with abnormal findings UA CC w/rflx Micro + Cult Today Z00.01 - Encounter for general adult medical examination with abnormal findings Lipid Panel Today Z00.01 - Encounter for general adult medical examination with abnormal findings Complete Blood Count Auto Diff Today Z00.01 - Encounter for general adult medical examination with abnormal findings TSH reflex Free T4 Today Z00.01 - Encounter for general adult medical examination with abnormal findings Prostate Specific Antigen Scr Today Z12.5 - Encounter for screening for malignant neoplasm of prostate AMB Hemoglobin A1c Today E11.9 - Type 2 diabetes mellitus without complications Referrals Podiatry Referral B35.1 - Tinea unguium, E11.9 - Type 2 diabetes mellitus without complications Coding Level of Care Code Est Pt Prev Care 40-64y(00098) Diagnoses Encounter for routine adult physical exam with abnormal findings Z00.01 Screening PSA (prostate specific antigen) Z12.5 Diabetes E11.9 Onychomycosis B35.1 Additional Codes MARGE-7 Assessment Billing - MARGE-7 Assessment Tool: MARGE-7 Assessment 75859 ([id number])
[2024-04-08 11:00] VITALS: BP 110/80; PULSE 76; O2SAT 98; BMI 38.5
== END 2024-04-08 11:29 | disposition home or self-care (01) ==
PROVIDERS: Visit Provider Nurse Practitioner Family
DX: Z00.00 Encounter for general adult medical examination without abnormal findings (principal); Z12.5 Encounter for screening for malignant neoplasm of prostate; E11.9 Type 2 diabetes mellitus without complications; B35.1 Tinea unguium
CPT/HCPCS: 83036; 99396

== ENCOUNTER 2024-04-09 09:06 | Outpatient (REF) | payer OTHER, SELFPAY ==
[2024-04-09 10:18] LABS: MANUAL DIFF FLAG NO
[2024-04-09 10:30] LABS: Appearance Urine Clear; Color Urine Dark Yellow; Glucose Urine UA Negative (Negative); Leukocyte Esterase Urine Negative (Negative); Nitrite Urine Negative (Negative); Specific Gravity - Urine >= 1.030 (1.005-1.025); Urine Blood Negative (Negative); Urine Ketones Trace mg/dL (Negative); Urine Protein Negative (Neg-Trace)
[2024-04-09 10:33] LABS: Eosinophils Absolute Auto 0.2 X10*3/uL (0.0-0.4); Eosinophils Percent Auto 5.3 % (0-4); Hematocrit 44.7 % (42.0-52.0); Hemoglobin 14.4 g/dl (14.0-18.0); Imm Gran Abs Auto 0.01 X10*3/uL (0.00-0.03); Imm Gran Pct Auto 0.3 % (0.0-0.4); Lymphocytes Absolute Auto 0.8 X10*3/uL (1.2-4.9); Lymphocytes Percent Auto 25.9 % (20-40); Mean Corpuscular HGB Conc 32.2 g/dl (31.0-36.0); Mean Corpuscular Hemoglobin 29.4 pg (27.0-33.0); Mean Corpuscular Volume 91.2 fL (80.0-98.0); Mean Platelet Volume 9.5 fL (9.4-12.4); Monocytes Absolute Auto 0.4 X10*3/uL (0.1-1.2); Monocytes Percent Auto 14.3 % (2-11); Neutrophils Absolute Auto 1.6 x10*3/uL (2.0-8.3); Neutrophils Percent Auto 53.2 % (45-73); Platelet Count 219 X10*3/uL (160-400); Red Cell Distribution Width 12.9 % (11.0-16.0)
[2024-04-09 11:11] LABS: Prostate Specific Antigen Scr 6.87 ng/mL (<0.05-4.0)
[2024-04-09 11:19] LABS: Alanine Aminotransferase 43 U/L (0-40); Alkaline Phosphatase 174 U/L (39-117); Anion Gap 14 (12-20); Aspartate Amino Transferase 26 U/L (5-37); Bilirubin Total 0.4 mg/dL (0.0-1.0); Blood Urea Nitrogen 21 mg/dL (9-16); Calcium 9.5 mg/dL (8.4-10.2); Carbon Dioxide 22 mmol/L (22-29); Chloride 110 mmol/L (96-108); Cholesterol 241 mg/dL (<200); Estimated Glomerular Filt Rate > 60; Glucose Fasting 108 mg/dL (60-99); HDL Cholesterol 54 mg/dL (>40); LDL Cholesterol Calculated 161 mg/dL (<100); Potassium 4.6 mmol/L (3.3-5.1); Sodium 141 mmol/L (135-145); TSH reflex Free T4 1.62 uIU/mL (0.32-4.0); Total Protein 7.4 g/dL (6.5-8.0); Triglycerides 132 mg/dL (<150)
== END 2024-04-09 09:07 | disposition home or self-care (01) ==
LOC: HO.HMGCLDS 09:06
PROVIDERS: PCP Nurse Practitioner Family; Visit Provider Nurse Practitioner Family
DX: Z00.01 Encounter for general adult medical examination with abnormal findings (principal); Z12.5 Encounter for screening for malignant neoplasm of prostate
CPT/HCPCS: 36415; 80053; 80061; 81003; 84153; 84443; 85025

== ENCOUNTER 2024-04-14 07:04 | Emergency (ER) | payer OTHER, SELFPAY ==
[2024-04-14 07:30] VITALS: BP 153/103; PULSE 79; RESP 18; TEMP 36.7; O2SAT 99; BMI 39.3
== END 2024-04-14 11:05 | disposition left against medical advice (07) ==
PROVIDERS: Emergency Provider Emergency Medicine; PCP Nurse Practitioner Family
DX: M54.9 Dorsalgia, unspecified (principal); R51.9 Headache, unspecified
CPT/HCPCS: 99281

== ENCOUNTER 2024-05-20 07:39 | Outpatient (REF) | payer OTHER, SELFPAY ==
--- NOTE | ~2024-05-20 | CT_ITS ---
EXAMINATION: CT HEAD WITHOUT CONTRAST CLINICAL INFORMATION: Headache status post liver transplant. COMPARISON: 06/04/2021 CT head. TECHNIQUE: Contiguous axial imaging was performed from the skull base to vertex without intravenous administration of contrast. This CT examination was performed using dose optimization techniques as appropriate, variously including the following: *Automated exposure control *Adjustment of mA and/or kV according to patient size (this includes techniques or standardized protocols for targeted exams where dose is matched to indication/reason for exam; i.e. extremities or head) *Use of iterative reconstruction technique DLP: 733 mGy-cm Please note study was not available for dictation until now secondary to extensive unavoidable back log circumstances. FINDINGS: No evidence of intracranial hemorrhage or acute territorial infarct. There is no mass effect or edema. No extra-axial fluid collection. Ventricles, sulci, and cisterns are minimally prominent, consistent with age appropriate involutional changes. No shift of midline. Mild to moderate patchy white matter hypodensity in the bilateral frontal and parietal subcortical and deep hemispheric white matter, nonspecific and mildly more prominent from 2020. 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 Pituitary and midline structures appear normally formed. Globes demonstrate calcification of the trochlea, finding which can be associated with diabetes. Globes and orbits otherwise normal. Paranasal sinuses, mastoid air cells, and middle ear cavities are normally aerated. No suspicious focal bony abnormalities identified. Extracranial soft tissues appear normal. CT/CT head/brain wo IV con IMPRESSION: -No acute intracranial abnormality. -Mildly increasing nonspecific white matter hypodensities, most likely related to small vessel ischemic changes.
== END 2024-05-20 07:40 | disposition home or self-care (01) ==
LOC: HO.CT 07:39
PROVIDERS: PCP Nurse Practitioner Family; Visit Provider Transplant Surgery
DX: R51.9 Headache, unspecified (principal); Z94.4 Liver transplant status
CPT/HCPCS: 70450

== ENCOUNTER → 2024-05-20 07:41 | Outpatient (BNV) | payer OTHER, SELFPAY | PROVIDERS: PCP Nurse Practitioner Family; Visit Provider Radiology Diagnostic Radiology | DX: R51.9 Headache, unspecified (principal) | CPT/HCPCS: 70450 ==

== ENCOUNTER 2024-05-21 11:07 | Outpatient (AMB) | payer OTHER, SELFPAY ==
--- NOTE | 2024-05-21 11:10 | A.OFFVIS_ITS ---
Intake Visit Reasons: elevated PSA/Nocturia/UTI Intake Note: Patient is present for elevated PSA/Nocturia,UTI Urology Medication:NONE Antibiotic Allergy:NONE Blood Thinner:Aspirin Supply Coordinator Required: No Allergies No Known Allergies [No Known Allergies*] Allergy (Verified 06/10/24 10:03) Medication List - Last Reconciled 05/21/24 by Arun Galaviz MD alcohol swabs (Easy Touch Alcohol Prep Pads) pad topical BID aspirin 1 tab PO DAILY atorvastatin 20 mg PO BEDTIME atovaquone 750 mg PO DAILY blood sugar diagnostic (FreeStyle Lite Strips) As directed blood-glucose meter (FreeStyle Lite Meter kit) As directed blood-glucose sensor (FreeStyle Danae 3 Sensor device) As directed calcium carbonate 500 mg PO BID finasteride 5 mg PO DAILY 90 days insulin glargine (Lantus Solostar U-100 Insulin) 8 units (0.08 mL) subcut QPM lancets (FreeStyle Lancets) As directed magnesium oxide 800 mg PO TID mycophenolate mofetil 750 mg PO BID omeprazole 40 mg PO DAILY pen needle, diabetic Use daily to inject insulin prednisone 5 mg PO DAILY sennosides (senna) 8.6 mg PO BEDTIME sertraline 25 mg PO DAILY tacrolimus mg PO tamsulosin 0.4 mg PO BEDTIME 90 days ursodiol 600 mg PO BID HPI Comments Details: Yaya is a pleasant male. He is a patient of Dr. Craven. He has seen for the following urologic conditions - elevated PSA Elevated PSA Progressive PSA 04/11 2.5, 04/12 6.9 Has associated nocturia and previous UTI Trial prostate meds and repeat labs in 3 months with bladder ultrasound [facility] Medical History Osteoporosis Ascites Hepatic encephalopathy Coagulopathy Advanced hepatic cirrhosis Fatty liver Alcohol abuse Hypoalbuminemia Ulcerative colitis Coagulopathy Anemia 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 Surgical History S/P kyphoplasty Liver transplanted Hx of colonoscopy History of esophagogastroduodenoscopy (EGD) Family History Sister History of liver cancer Father Substance use disorder Social History Household Members: Spouse Household Members Other:: 2 Housing: House Do you presently have visiting nurse or other home services: No Alcohol intake: never Comment: OVERFLOW Patient Tobacco Use Status: Former Tobacco user Tobacco use type: Cigar e-Cigarette/Vaping Use: Never Used Second Hand Smoke Exposure: No Advance Directives Date on File: 12/31/21 service: No Current occupational status: disabled Cognitive needs: No Hearing needs: No Vision needs: No Review of Systems Const Denies chills and Denies fever(s) Card Reports no additional complaints and Denies syncope Resp Denies cough GI Denies abdominal pain and Denies heartburn Reports as per HPI and Denies change in libido Neuro Denies syncope Psych Denies change in libido Endo Denies change in libido Physical Exam Const General: cooperative, healthy appearing, comfortable and no acute distress Orientation/consciousness: patient oriented x3 HEENT Face and sinus: Yes normal facial exam Mouth: moist mucous membranes Neck Neck: Yes normal visual inspection, Yes full ROM and Yes trachea midline Chest Chest palpation & inspection: normal inspection of the chest Resp Effort & Inspection: normal respiratory effort, able to speak in complete sentences and no respiratory distress GI Inspection: Yes normal to inspection Back/Spine/Pelvis Cervical Spine: normal cervical lordosis Thoracic/Lumbar Spine: thoracic and lumbar spine normal to inspection Skin General skin exam: no rashes or lesions noted Neuro General: patient oriented x3, gait normal, tone normal and moves all extremities Extrem General: Yes normal to inspection and Yes capillary refill normal Results AMB Urinalysis, Automated UA Leukoctes 0 Katherine/uL Last Edit by BIMAL Gomes on 05/21/24 11:40 UA Nitrite Negative Last Edit by BIMAL Gomes on 05/21/24 11:40 UA Urobilinogen 0.2 mg/dL Last Edit by BIMAL Gomes on 05/21/24 11:4 0 UA Protein 15 mg/dL Last Edit by BIMAL Gomes on 05/21/24 11:40 UA pH 5.0 Last Edit by BIMAL Gomes on 05/21/24 11:40 UA Blood 0 Bo/uL Last Edit by BIMAL Gomes on 05/21/24 11:40 UA Specific [place] 1.030 Last Edit by BIMAL Gomes on 05/21/24 11: 40 UA Ketone Positive Last Edit by BIMAL Gomes on 05/21/24 11:40 UA Bilirubin 0 mg/dL Last Edit by BIMAL Gomes on 05/21/24 11:40 UA Glucose 0 mg/dL Last Edit by BIMAL Gomes on 05/21/24 11:40 Results Reviewed Results Reviewed: Laboratory Last Values Urine pH (Auto) 5.0 05/21/24 11:39 Specific [place] (Auto) 1.030 05/21/24 11:39 Urine Protein (Auto) 15 mg/dL 05/21/24 11:39 Glucose (UA)(Auto) 0 mg/dL 05/21/24 11:39 Urine Ketones (Auto) Positive 05/21/24 11:39 Urine Blood (Auto) 0 Bo/uL 05/21/24 11:39 Urine Nitrite (Auto) Negative 05/21/24 11:39 Urine Bilirubin (Auto) 0 mg/dL 05/21/24 11:39 Urine Urobilinogen (Auto) 0.2 mg/dL 05/21/24 11:39 Leukocyte Esterase (Auto) 0 Katherine/uL 05/21/24 11:39 Assessment & Plan Assessment & Plan (1) Bladder outlet obstruction: Code(s): N32.0 - Bladder-neck obstruction Category: Medical Plan Three-month follow-up PSA Orders: Orders AMB Urinalysis Automated 05/21/24 Z13.9 - Encounter for screening, unspecified US bladder 3 Months N32.0 - Bladder-neck obstruction Prostate Specific Antigen 3 Months N32.0 - Bladder-neck obstruction Medications: New tamsulosin 0.4 mg PO BEDTIME 90 caps 1RF 90 days N32.0 - Bladder-neck obstruction, N40.1 - Benign prostatic hyperplasia with lower urinary tract symptoms, N13.8 - Other obstructive and reflux uropathy finasteride 5 mg PO DAILY 90 tabs 0RF 90 days N32.0 - Bladder-neck obstruction Patient Instructions: Imaging studies, laboratory and physical exam results were discussed and reviewed in detail. No major barriers to patient understanding were identified. An opportunity to ask questions regarding the treatment plan was provided. All questions were answered. The patient expressed understanding and agreement with the above treatment plan. The patient is aware they should contact our office by phone for worsening of their current condition or the appearance of new urologic symptoms. Compliance is encouraged with any medications and followup testing that is ordered. It is a privilege to participate in the urologic care of your patient. If you have any questions or concerns regarding treatment for the above conditions, or other urologic issues, please do not hesitate to contact me. The office telephone contact is [phone]. This note is constructed using voice recognition software. While every effort has been made to ensure accuracy vending technician errors may have been included. Yours sincerely, Dr Arun Galaviz MD, [facility] - Urology Providers of Expert, Compassionate Care for the Genitourinary System Coding Level of Care Code Est Pt Level 3 (64392) Diagnoses Bladder outlet obstruction N32.0
== END 2024-05-21 11:43 | disposition home or self-care (01) ==
PROVIDERS: PCP Nurse Practitioner Family; Visit Provider Urology
DX: N32.0 Bladder-neck obstruction (principal)
CPT/HCPCS: 99213

== ENCOUNTER → 2024-05-21 11:07 | Outpatient (BNVA) | payer OTHER, SELFPAY | PROVIDERS: PCP Nurse Practitioner Family; Visit Provider Urology | DX: R97.20 Elevated prostate specific antigen [PSA] (principal); N32.0 Bladder-neck obstruction | CPT/HCPCS: 81003 ==

== ENCOUNTER 2024-06-10 09:56 | Outpatient (AMB) | payer OTHER, SELFPAY ==
--- NOTE | 2024-06-10 10:00 | A.OFFVIS_ITS ---
Vital Signs 06/10/24 10:02 Height 5 ft 8 in Weight 249 lb 1.957 oz BMI 37.9 BP 109/90 H Blood Pressure Location Lt brachial Position Sitting Pulse 72 Intake Visit Reasons: 3 month follow up Intake Note: Yaya presents in the office as a 3 month follow up. CC: he states that he has shingles pains in the right side in the auxillary area. He said there is no scar or rash just a burning sensation. Allergies No Known Allergies [No Known Allergies*] Allergy (Verified 06/10/24 10:03) HPI HPI 3 month follow up: Details: [age]yr old m here for f/u RECAP: hx of PSC and liver cirrhosis, prior alcohol xs following Mass gen for liver transplant evaluation. disease complicated by ascites and SBP in the past needing occasional therapeutic paracentesis also has UC managed with entyvio labs prior with severe vit A def not drinking alcohol (stopped 09/2020) or smoking. US 06/2022- minimal ascites, OTHER DATA: MRCP 2021: lymphadenopathy, cirrhosis, ascites, cholelithiasis, ahaustral colon MRCP 12/2020--PSc, cirrhosis, no liver masses, or lesions EGD 07/2020--varices EGD/Colonoscopy 09/2022- Endoscopy Findings: portal hypertensive gastropathy enteropathy small varices Colonoscopy Findings: polyp internal hemorrhoids diverticular disease features of chronic colitis and sequelae of healing Path: chronic mild inactive and active colitis on bx, no dysplasia, hyperplastic polyp I did w/u for worsening LFT ascitic fluid neg for SBP--only 1.9 L removed UA and culture pos for staph warneri--initially sent cipro due to pos UA but then sent bactrim once got confirmation on organism vedolizumab levels were v good HE finally had his liver transplant 06/2023-- repeat colonoscopy;01/17/24; chronic colitis and inflamamtion, lactoferrin elevated at 22 INTERIM: no complaints getting entyvio--no problems no symptoms of colitis, stool is normal no gas symptoms no fevers or chills no cough or sputum no hematuria or rectal bleeding recovering from shingles, has some post herpetic neuralgia EXAM: GENERAL: The patient is alert, VITAL SIGNS:see workflow HEENT: normal sclerae, PERRLA, EOMI. Oropharynx clear. Moist mucous membranes. Conjunctivae appear well perfused. No thyroid mass. CHEST: Chest wall is nontender. HEART: Regular rate and rhythm without murmurs. LUNGS: Clear to auscultation bilaterally. ABDOMEN: Soft but distended, positive bowel sounds, nontender, no organomegaly.no flank tenderness--scar noted SKIN: No rash, no excessive bruising, petechiae, or purpura. NEUROLOGIC: Cranial nerves II-XII intact without motor/sensory deficit. 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 Surgical History S/P kyphoplasty Liver transplanted Hx of colonoscopy History of esophagogastroduodenoscopy (EGD) Family History Sister History of liver cancer Father Substance use disorder Social History Household Members: Spouse Household Members Other:: 2 Housing: House Do you presently have visiting nurse or other home services: No Alcohol intake: never Comment: OVERFLOW Patient Tobacco Use Status: Former Tobacco user Tobacco use type: Cigar e-Cigarette/Vaping Use: Never Used Second Hand Smoke Exposure: No Advance Directives Date on File: 12/31/21 service: No Current occupational status: disabled Cognitive needs: No Hearing needs: No Vision needs: No Physical Exam Vital Signs: Last Vital Signs Pulse 72 06/10/24 10:02 BP 109/90 H 06/10/24 10:02 BMI result Body Mass Index 37.9 Assessment & Plan Assessment & Plan (1) IBD (inflammatory bowel disease): Code(s): K52.9 - Noninfective gastroenteritis and colitis, unspecified Category: Medical Plan: see above Orders: Orders Lactoferrin, Fecal, Quant. Today K51.50 - Left sided colitis without complications Coding Level of Care Code Est Pt Level 3 (97679) Diagnoses IBD (inflammatory bowel disease) K52.9
[2024-06-10 10:02] VITALS: BP 109/90; PULSE 72; BMI 37.9
== END 2024-06-10 10:44 | disposition home or self-care (01) ==
PROVIDERS: PCP Nurse Practitioner Family; Visit Provider Internal Medicine Gastroenterology
DX: K52.9 Noninfective gastroenteritis and colitis, unspecified (principal)
CPT/HCPCS: 99213

== ENCOUNTER → 2024-06-10 09:56 | Outpatient (BNVA) | payer OTHER, SELFPAY | PROVIDERS: PCP Nurse Practitioner Family; Visit Provider Internal Medicine Gastroenterology ==

== ENCOUNTER 2024-06-28 11:23 | Outpatient (REF) | payer OTHER, SELFPAY ==
[2024-07-06 17:03] LABS: Lactoferrin, Fecal, Quant. 9.96 mcg/mL (<7.25)
== END 2024-06-28 11:24 | disposition home or self-care (01) ==
LOC: HO.LNP 11:23
PROVIDERS: Visit Provider Internal Medicine Gastroenterology
DX: K51.50 Left sided colitis without complications (principal)
CPT/HCPCS: 83631

== ENCOUNTER 2024-07-23 06:49 | Outpatient (REF) | payer OTHER, SELFPAY ==
[2024-08-12 15:23] LABS: Vedolizumab Antibody <9.8
== END 2024-07-23 06:50 | disposition home or self-care (01) ==
LOC: HO.LAB 06:49
PROVIDERS: PCP Nurse Practitioner Family; Visit Provider Internal Medicine Gastroenterology
DX: K52.9 Noninfective gastroenteritis and colitis, unspecified (principal)
CPT/HCPCS: 36415; 80280; 83520

== ENCOUNTER 2024-07-24 10:51 | Outpatient (REF) | payer OTHER, SELFPAY ==
[2024-07-24 13:53] LABS: Alanine Aminotransferase 33 U/L (0-40); Albumin Level 3.9 g/dL (3.5-5.0); Alkaline Phosphatase 186 U/L (39-117); Anion Gap 13 (12-20); Aspartate Amino Transferase 21 U/L (5-37); Blood Urea Nitrogen 22 mg/dL (9-16); Calcium 9.6 mg/dL (8.4-10.2); Carbon Dioxide 22 mmol/L (22-29); Chloride 109 mmol/L (96-108); Cholesterol 232 mg/dL (<200); Estimated Glomerular Filt Rate > 60; Glucose Fasting 101 mg/dL (60-99); HDL Cholesterol 51 mg/dL (>40); LDL Cholesterol Calculated 155 mg/dL (<100); Potassium 4.8 mmol/L (3.3-5.1); Sodium 139 mmol/L (135-145); Total Protein 7.6 g/dL (6.5-8.0); Triglycerides 132 mg/dL (<150)
[2024-07-24 14:05] LABS: Bilirubin Total 0.4 mg/dL (0.0-1.0)
== END 2024-07-24 10:52 | disposition home or self-care (01) ==
LOC: HO.HMGCLDS 10:51
PROVIDERS: PCP Nurse Practitioner Family; Visit Provider Nurse Practitioner Family
DX: E78.5 Hyperlipidemia, unspecified (principal)
CPT/HCPCS: 36415; 80053; 80061

== ENCOUNTER 2024-08-06 09:54 | Outpatient (REF) | payer OTHER, SELFPAY ==
--- NOTE | ~2024-08-06 | US_ITS ---
EXAMINATION: US PELVIS LIMITED (BLADDER) CLINICAL INFORMATION: Bladder neck obstruction. COMPARISON: CT abdomen and pelvis 06/04/2021 TECHNIQUE: Real-time imaging of the bladder. FINDINGS: BLADDER: Question of a 1.3 cm possible intraluminal bladder lesion, without definite appreciable internal vascularity. Bilateral ureteral jets are demonstrated. Prevoid bladder volume is 132 mL. Postvoid bladder volume is 2.5 mL. US/US bladder IMPRESSION: Question of a 1.3 cm possible intraluminal bladder lesion, without definite appreciable internal vascularity, recommend urologic evaluation for consideration of cystoscopy or CT urogram for further delineation. The report will be called to the ordering clinician by a [facility] Phys[facility] Food Court Team Member. Electronically signed by: Candy Pickard MD 08/12/2024 05:15 PM EDT
== END 2024-08-06 09:55 | disposition home or self-care (01) ==
LOC: HO.HMGCX 09:54
PROVIDERS: PCP Nurse Practitioner Family; Visit Provider Urology
DX: N32.0 Bladder-neck obstruction (principal)
CPT/HCPCS: 76857

== ENCOUNTER 2024-08-12 07:37 | Outpatient (REF) | payer OTHER, SELFPAY ==
[2024-08-12 09:12] LABS: Prostate Specific Antigen 7.53 ng/mL (<0.05-4.0)
== END 2024-08-12 07:38 | disposition home or self-care (01) ==
LOC: HO.LAB 07:37
PROVIDERS: PCP Nurse Practitioner Family; Visit Provider Urology
DX: N32.0 Bladder-neck obstruction (principal); Z12.5 Encounter for screening for malignant neoplasm of prostate
CPT/HCPCS: 36415; 84153

== ENCOUNTER 2024-08-20 09:12 | Outpatient (AMB) | payer OTHER, SELFPAY ==
--- NOTE | 2024-08-20 09:11 | A.OFFVIS_ITS ---
Intake Visit Reasons: 3M Follow Up-Bladder US/PSA(PSA Elevated) Intake Note: Patient is Present for PVR/UA Check/Bladder US/PSA Urology Med: Finasteride, Tamsulosin Antibiotic Allergy:None Blood Thinner: Aspirin Patient is on Ozempic PVR: 199 Recent PSA: 08/12/24- 7.53 Recent A1C:03/2024- 6.5 Patient states he is here for his follow up, Patient states he has no recent issues with Urination no symptoms of UTI Pipe Racker Required: No Allergies No Known Allergies [No Known Allergies*] Allergy (Verified 08/20/24 09:14) Medication List - Last Reconciled 08/20/24 by Arun Galaviz MD alcohol swabs (Easy Touch Alcohol Prep Pads) pad topical BID aspirin 1 tab PO DAILY atorvastatin 20 mg PO BEDTIME atovaquone 750 mg PO DAILY blood sugar diagnostic (FreeStyle Lite Strips) As directed blood-glucose meter (FreeStyle Lite Meter kit) As directed blood-glucose sensor (FreeStyle Danae 3 Sensor device) As directed calcium carbonate 500 mg PO BID finasteride 5 mg PO DAILY 90 days gabapentin mg PO insulin glargine (Lantus Solostar U-100 Insulin) 8 units (0.08 mL) subcut QPM lancets (FreeStyle Lancets) Test blood sugar three times per day magnesium oxide 800 mg PO TID mycophenolate mofetil 750 mg PO BID omeprazole 40 mg PO DAILY pen needle, diabetic Use daily to inject insulin pen needle, diabetic (BD Ultra-Fine Short Pen Needle) As directed prednisone 5 mg PO DAILY semaglutide (Ozempic) 0.25 mg (0.368 mL) subcut QWEEK sennosides (senna) 8.6 mg PO BEDTIME sertraline 25 mg PO DAILY tacrolimus mg PO tamsulosin 0.4 mg PO BEDTIME 90 days ursodiol 600 mg PO BID HPI Comments Details: Yaya is a pleasant male. He is a patient of Dr. Craven. He has seen for the following urologic conditions - elevated PSA Background diabetes and liver transplant. Recently started Ozempic. PSA remains elevated despite trial of medications Has difficulty with urination Has been on combination tamsulosin and finasteride Recommend cystoscopy with probable GreenLight laser and prostate biopsy Check testosterone since diabetic Elevated PSA Progressive PSA 04/11 2.5, 04/12 6.9, 08/13 7.5 Has associated nocturia and previous UTI PFSH Medical History Osteoporosis Ascites Hepatic encephalopathy Coagulopathy Advanced hepatic cirrhosis Fatty liver Alcohol abuse Hypoalbuminemia Ulcerative colitis Coagulopathy Anemia 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 Surgical History S/P kyphoplasty Liver transplanted Hx of colonoscopy History of esophagogastroduodenoscopy (EGD) Family History Sister History of liver cancer Father Substance use disorder Social History Household Members: Spouse Household Members Other:: 2 Housing: House Do you presently have visiting nurse or other home services: No Alcohol intake: never Comment: OVERFLOW Patient Tobacco Use Status: Former Tobacco user Tobacco use type: Cigar e-Cigarette/Vaping Use: Never Used Second Hand Smoke Exposure: No Advance Directives Date on File: 12/31/21 service: No Current occupational status: disabled Cognitive needs: No Hearing needs: No Vision needs: No Review of Systems Const Denies chills and Denies fever(s) Card Reports no additional complaints and Denies syncope Resp Denies cough GI Denies abdominal pain and Denies heartburn Reports as per HPI and Denies change in libido Neuro Denies syncope Psych Denies change in libido Endo Denies change in libido Physical Exam Const General: cooperative, healthy appearing, comfortable and no acute distress Orientation/consciousness: patient oriented x3 HEENT Face and sinus: Yes normal facial exam Mouth: moist mucous membranes Neck Neck: Yes normal visual inspection, Yes full ROM and Yes trachea midline Chest Chest palpation & inspection: normal inspection of the chest Resp Effort & Inspection: normal respiratory effort, able to speak in complete sentences and no respiratory distress GI Inspection: Yes normal to inspection Back/Spine/Pelvis Cervical Spine: normal cervical lordosis Thoracic/Lumbar Spine: thoracic and lumbar spine normal to inspection Skin General skin exam: no rashes or lesions noted Neuro General: patient oriented x3, gait normal, tone normal and moves all extremities Extrem General: Yes normal to inspection and Yes capillary refill normal Office Procedures Post Void Residual Post Residual Void Post Void Residual (PVR): [id number] Void Residual by ultrasound Results AMB Urinalysis, Automated UA Leukoctes 0 Katherine/uL Last Edit by Nicole Baker Nina on 08/20/24 09:31 UA Nitrite Negative Last Edit by Nicole Baker [facility] on 08/20/24 09:31 UA Urobilinogen 0.2 mg/dL Last Edit by Nicole Baker [facility] on 08/20/24 09:3 1 UA Protein 0 mg/dL Last Edit by Nicole Baker A on 08/20/24 09:31 UA pH 6.0 Last Edit by Nicole Baker [facility] on 08/20/24 09:31 UA Blood 0 Bo/uL Last Edit by Nicole Baker [facility] on 08/20/24 09:31 UA Specific [place] 1.030 Last Edit by Nicole Baker [facility] on 08/20/24 09: 31 UA Ketone Negative Last Edit by Nicole Baker Nina on 08/20/24 09:31 UA Bilirubin 0 mg/dL Last Edit by Nicole Baker A on 08/20/24 09:31 UA Glucose 0 mg/dL Last Edit by Nicole Baker [facility] on 08/20/24 09:31 Assessment & Plan Assessment & Plan (1) Bladder outlet obstruction: Code(s): N32.0 - Bladder-neck obstruction Category: Medical (2) Elevated prostate specific antigen (PSA): Code(s): R97.20 - Elevated prostate specific antigen [PSA] Category: Medical (3) Nocturia: Code(s): R35.1 - Nocturia Category: Medical (4) Incomplete emptying of bladder due to benign prostatic hyperplasia: Code(s): N40.1 - Benign prostatic hyperplasia with lower urinary tract symptoms; R33.9 - Retention of urine, unspecified Category: Medical Plan Plan cystoscopy office, testosterone labs Orders: Orders AMB Urinalysis Automated Today N39.0 - Urinary tract infection, site not specified, Z13.9 - Encounter for screening, unspecified Testosterone, Free/Total Today N32.0 - Bladder-neck obstruction Lutenizing Hormone Today N32.0 - Bladder-neck obstruction AMB Post Void Residual by ultrasound Today R35.1 - Nocturia Patient Instructions: Imaging studies, laboratory and physical exam results were discussed and revi ewed in detail. No major barriers to patient understanding were identified. An opportunity to ask questions regarding the treatment plan was provided. All questions were answered. The patient expressed understanding and agreement with the above treatment plan. The patient is aware they should contact our office by phone for worsening of their current condition or the appearance of new urologic symptoms. Compliance is encouraged with any medications and followup testing that is ordered. It is a privilege to participate in the urologic care of your patient. If you have any questions or concerns regarding treatment for the above conditions, or other urologic issues, please do not hesitate to contact me. The office telephone contact is [phone]. This note is constructed using voice recognition software. While every effort has been made to ensure accuracy lever tender errors may have been included. Yours sincerely, Dr Arun Galaviz MD, [facility] - Urology Providers of Expert, Compassionate Care for the Genitourinary System Coding Level of Care Code Est Pt Level 3 (34660) Diagnoses Bladder outlet obstruction N32.0 Elevated prostate specific antigen (PSA) R97.20 Nocturia R35.1 Incomplete emptying of bladder due to benign prostatic hyperplasia N40.1; R33.9 CPT Codes Post Residual Void - PVR CPT Code: 06250-Ohcj Void Residual by ultrasound ([id number])
== END 2024-08-20 09:59 | disposition home or self-care (01) ==
PROVIDERS: PCP Nurse Practitioner Family; Visit Provider Urology
DX: N40.1 Benign prostatic hyperplasia with lower urinary tract symptoms (principal); N32.0 Bladder-neck obstruction; R97.20 Elevated prostate specific antigen [PSA]; R35.1 Nocturia; R33.9 Retention of urine, unspecified; Z13.9 Encounter for screening, unspecified; N39.0 Urinary tract infection, site not specified
CPT/HCPCS: 99213

== ENCOUNTER → 2024-08-20 09:12 | Outpatient (BNVA) | payer OTHER, SELFPAY | PROVIDERS: PCP Nurse Practitioner Family; Visit Provider Urology | DX: R97.20 Elevated prostate specific antigen [PSA] (principal); N40.1 Benign prostatic hyperplasia with lower urinary tract symptoms; N13.8 Other obstructive and reflux uropathy; R35.1 Nocturia; R33.8 Other retention of urine | CPT/HCPCS: 51798; 81003 ==

== ENCOUNTER 2024-09-23 11:18 | Outpatient (REF) | payer OTHER, SELFPAY ==
[2024-09-24 19:03] LABS: Lutenizing Hormone 7.3 mIU/mL (1.5-9.3)
[2024-09-29 15:14] LABS: Testosterone, Free 42.1 pg/mL (35.0-155.0); Testosterone, Total 319 ng/dL (250-1100)
== END 2024-09-23 11:19 | disposition home or self-care (01) ==
LOC: HO.LAB 11:18
PROVIDERS: PCP Nurse Practitioner Family; Visit Provider Urology
DX: N32.0 Bladder-neck obstruction (principal)
CPT/HCPCS: 36415; 83002; 84402; 84403

== ENCOUNTER 2024-10-02 09:05 | Outpatient (AMB) | payer OTHER, SELFPAY ==
--- NOTE | 2024-10-02 09:06 | A.OFFVIS_ITS ---
Intake Visit Reasons: Cystoscopy/Testosterone(set) Intake Note: Patient is present for Cystoscopy/Testosterone Results Urology Med: Finasteride, Tamsulosin Antibiotic Allergy: None Blood Thinner: Aspirin Last PVR:199ml PSA: 08/12/24 7.53(H) Total Testosterone: 09/23/24- 319 Free Testosterone: 09/23/2024- 421 Luteinizing Hormone- 09/23/24- 7.3 Hemoglobin A1C: 04/08/24- 6.5(H) Uro G-HD Disposable Cystoscope LOT:[id number] EXP:12/21/2026 Supervisor Files Required: No Accompanied by: Self / Same As Patient Allergies No Known Allergies [No Known Allergies*] Allergy (Verified 10/02/24 09:07) HPI Comments Details: Yaya is a pleasant male. He is a patient of Dr. Craven. He has seen for the following urologic conditions - elevated PSA - lower urinary tract symptoms Background diabetes and liver transplant. Recently started Ozempic. PSA remains elevated despite trial of medications Has difficulty with urination Has been on combination tamsulosin and finasteride Here for cystoscopy today Testosterone labs T 320 LH 7.3 - suggestive of testicular resistance Tight bladder neck Recommend bladder outlet procedure with prostate biopsy Lower urinary tract symptoms Primarily obstructive in nature with difficulty on urination, weakness of stream Has been on combination therapy tamsulosin and finasteride Elevated PSA Progressive PSA 04/11 2.5, 04/12 6.9, 08/13 7.5 Has associated nocturia and previous UTI PFSH Medical History Osteoporosis Ascites Hepatic encephalopathy Coagulopathy Advanced hepatic cirrhosis Fatty liver Alcohol abuse Hypoalbuminemia Ulcerative colitis Coagulopathy Anemia 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 Surgical History S/P kyphoplasty Liver transplanted Hx of colonoscopy History of esophagogastroduodenoscopy (EGD) Family History Sister History of liver cancer Father Substance use disorder Social History Household Members: Spouse Household Members Other:: 2 Housing: House Do you presently have visiting nurse or other home services: No Alcohol intake: never Comment: OVERFLOW Patient Tobacco Use Status: Former Tobacco user Tobacco use type: Cigar e-Cigarette/Vaping Use: Never Used Second Hand Smoke Exposure: No Advance Directives Date on File: 12/31/21 service: No Current occupational status: disabled Cognitive needs: No Hearing needs: No Vision needs: No Review of Systems Const Denies chills and Denies fever(s) Card Reports no additional complaints and Denies syncope Resp Denies cough GI Denies abdominal pain and Denies heartburn Reports as per HPI and Denies change in libido Neuro Denies syncope Psych Denies change in libido Endo Denies change in libido Physical Exam Const General: cooperative, healthy appearing, comfortable and no acute distress Orientation/consciousness: patient oriented x3 HEENT Face and sinus: Yes normal facial exam Mouth: moist mucous membranes Neck Neck: Yes normal visual inspection, Yes full ROM and Yes trachea midline Chest Chest palpation & inspection: normal inspection of the chest Resp Effort & Inspection: normal respiratory effort, able to speak in complete sentences and no respiratory distress GI Inspection: Yes normal to inspection Back/Spine/Pelvis Cervical Spine: normal cervical lordosis Thoracic/Lumbar Spine: thoracic and lumbar spine normal to inspection Skin General skin exam: no rashes or lesions noted Neuro General: patient oriented x3, gait normal, tone normal and moves all extremities Extrem General: Yes normal to inspection and Yes capillary refill normal Office Procedures Cystoscopy Consent Discussed risk and benefit or proposed procedure with the patient. Information consent for procedure given to the patient. Discussed technical aspects, risks, benefits and alternatives in full. Addressed all of the patient's questions and concerns regarding the procedure. The patient demonstrated knowledge and understanding. They wish to proceed with this procedure. Preparation The patient was prepped in the usual manner. A restaurant front manager was present and in the room. Genitalia was prepped with betadine solution in a sterile manner. Lidocaine Jelly 2% was placed into the urethra and 16Fr flexible Olympus cystoscope was inserted into the meatus after adequate lubrication. Procedure Cystoscopy performed using a disposable Urovue digital 16 Turkish cystoscope. Meatus uncircumcised Urethra anterior posterior urethra normal Prostatic Urethra tight prostate neck Bladder examination with retroflexion of cystoscope Bladder Orifices normal shape and position Bladder Capacity median Trabeculations grade 1 Cellule Formation - Diverticulum Formation - Mucosal Erythema - Bladder Tumor -- DISPOSABLE SCOPE URO-G FLEXIBLE SCOPE Procedure code (CPT) selection complete Office Meds lidocaine HCl 2 % mucosal jelly in applicator Performing Provider: Arun Galaviz MD Performing Location: [facility] [place] [facility] Administered by: JUDY Woods on 10/02/24 09:37 Dose Route Admin Location Dispensed Lot Number Expiration Date ND Commodity Loan Clerk 10 mL intra-urethral 10 mL Comments: administered by Dr Galaviz nitrofurantoin monohydrate/macrocrystals 100 mg capsule Performing Provider: Arun Galaviz MD Performing Location: [facility] [place] [facility] Administered by: JUDY Woods on 10/02/24 09:37 Dose Route Admin Location Dispensed Lot Number Expiration Date NDC Commodity Loan Clerk 100 mg PO 1 cap Comments: administered by Dr Galaviz naproxen 500 mg tablet Performing Provider: Arun Galaviz MD Performing Location: [facility] [place] [facility] Administered by: JUDY Woods on 10/02/24 09:37 Dose Route Admin Location Dispensed Lot Number Expiration Date NDC Commodity Loan Clerk 500 mg PO 1 tab Comments: administered by Dr Galaviz Results AMB Urinalysis, Automated UA Leukoctes 0 Katherine/uL Last Edit by Nicole Baker Nina on 10/02/24 09:25 UA Nitrite Negative Last Edit by Nicole Baker Nina on 10/02/24 09:25 UA Urobilinogen 0.2 mg/dL Last Edit by Nicole Baker [facility] on 10/02/24 09:2 5 UA Protein 15 mg/dL Last Edit by Nicole Baker [facility] on 10/02/24 09:25 UA pH 5.5 Last Edit by Nicole Baker [facility] on 10/02/24 09:25 UA Blood 0 Bo/uL Last Edit by Nicole Baker Nina on 10/02/24 09:25 UA Specific [place] 1.025 Last Edit by Nicole Baker [facility] on 10/02/24 09: 25 UA Ketone Negative Last Edit by GISELA Woods on 10/02/24 09:25 UA Bilirubin 0 mg/dL Last Edit by Nicole Baker [facility] on 10/02/24 09:25 UA Glucose 0 mg/dL Last Edit by JUDY Woods on 10/02/24 09:25 Results Reviewed Results Reviewed: Laboratory Last Values Urine pH (Auto) 5.5 10/02/24 09:07 Specific [place] (Auto) 1.025 10/02/24 09:07 Urine Protein (Auto) 15 mg/dL 10/02/24 09:07 Glucose (UA)(Auto) 0 mg/dL 10/02/24 09:07 Urine Ketones (Auto) Negative 10/02/24 09:07 Urine Blood (Auto) 0 Bo/uL 10/02/24 09:07 Urine Nitrite (Auto) Negative 10/02/24 09:07 Urine Bilirubin (Auto) 0 mg/dL 10/02/24 09:07 Urine Urobilinogen (Auto) 0.2 mg/dL 10/02/24 09:07 Leukocyte Esterase (Auto) 0 Katherine/uL 10/02/24 09:07 Assessment & Plan Assessment & Plan (1) Bladder outlet obstruction: Code(s): N32.0 - Bladder-neck obstruction Category: Medical (2) Elevated prostate specific antigen (PSA): Code(s): R97.20 - Elevated prostate specific antigen [PSA] Category: Medical Plan We discussed the nature of the decision and reasonable options for performing a prostate intervention. Interventions include TURP, GreenLight laser enucleation of the prostate, GreenLight laser ablation of the prostate, transurethral incision of the prostate, and I-Tend prostate procedure. Options such as medical therapy were discussed. The relative uncertainties and benefits related to each alternate procedure were adequately discussed. General surgical risks including, but not limited to, pain, bleeding, infection, myocardial infarction, pulmonary embolus, deep vein thrombosis and cerebrovascular accident which may result in further hospitalization were discussed. Full disclosure of the procedure as well as all major risks, benefits and complications were discussed including but not limited to damage to the urethra or bladder neck, recurrent BPH, retrograde ejaculation, bladder infection, urge, de orlando frequency, incomplete emptying, dysuria, remote chance of erectile dysfunction, epididymitis, and meatal stenosis. The success rate of the procedure was discussed. Success of the procedure in the short-term does not necessarily guarantee that long-term success will be maintained. Suitable follow up will need to be maintained. The patient showed understanding of discussion. An opportunity was provided for questions to be answered and wishes to proceed with the following procedure. - bipolar button of prostate, prostate biopsy Orders: Orders AMB Urinalysis Automated Today Z13.9 - Encounter for screening, unspecified AMB Cystoscopy Today N40.1 - Benign prostatic hyperplasia with lower urinary tract symptoms, R33.9 - Retention of urine, unspecified Patient Instructions: Imaging studies, laboratory and physical exam results were discussed and reviewed in detail. No major barriers to patient understanding were identified. An opportunity to ask questions regarding the treatment plan was provided. All questions were answered. The patient expressed understanding and agreement with the above treatment plan. The patient is aware they should contact our office by phone for worsening of their current condition or the appearance of new urologic symptoms. Compliance is encouraged with any medications and followup testing that is ordered. It is a privilege to participate in the urologic care of your patient. If you have any questions or concerns regarding treatment for the above conditions, or other urologic issues, please do not hesitate to contact me. The office telephone contact is [phone]. This note is constructed using voice recognition software. While every effort has been made to ensure accuracy body stylist errors may have been included. Yours sincerely, Dr Arun Galaviz MD, [facility] - Urology Providers of Expert, Compassionate Care for the Genitourinary System Coding Level of Care Code Est Pt Level 4 (82759) Diagnoses Bladder outlet obstruction N32.0 Elevated prostate specific antigen (PSA) R97.20
== END 2024-10-02 10:09 | disposition home or self-care (01) ==
PROVIDERS: PCP Nurse Practitioner Family; Visit Provider Urology
DX: N40.1 Benign prostatic hyperplasia with lower urinary tract symptoms (principal); R33.9 Retention of urine, unspecified; N32.0 Bladder-neck obstruction; R97.20 Elevated prostate specific antigen [PSA]; Z13.9 Encounter for screening, unspecified
CPT/HCPCS: 99214

== ENCOUNTER → 2024-10-02 09:05 | Outpatient (BNVA) | payer OTHER, SELFPAY | PROVIDERS: PCP Nurse Practitioner Family; Visit Provider Urology | DX: R97.20 Elevated prostate specific antigen [PSA] (principal); N32.0 Bladder-neck obstruction | CPT/HCPCS: 52000; 81003 ==

== ENCOUNTER 2024-11-15 09:10 | Outpatient (AMB) | payer OTHER, SELFPAY ==
--- NOTE | 2024-11-15 09:17 | A.OFFVIS_ITS ---
Vital Signs 11/15/24 09:18 Height 5 ft 8 in Weight 264 lb 8.875 oz BMI 40.2 BP 122/84 Blood Pressure Location Lt brachial Position Sitting Pulse 80 Intake Visit Reasons: 4 month f/u Intake Note: Yaya presents in the office as a 4 month follow up. CC: States that he is feeling good and not having any concerns at this time. Did his entyvio this morning. Foreign Student Adviser Required: No Allergies No Known Allergies [No Known Allergies*] Allergy (Verified 11/15/24 09:19) HPI HPI 4 month f/u: Details: [age]yr old m here for f/u RECAP: hx of PSC and liver cirrhosis, prior alcohol xs following Mass gen for liver transplant evaluation. disease complicated by ascites and SBP in the past needing occasional therapeutic paracentesis also has UC managed with entyvio labs prior with severe vit A def not drinking alcohol (stopped 09/2020) or smoking. US 06/2022- minimal ascites, OTHER DATA: MRCP 2021: lymphadenopathy, cirrhosis, ascites, cholelithiasis, ahaustral colon MRCP 12/2020--PSc, cirrhosis, no liver masses, or lesions EGD 07/2020--varices EGD/Colonoscopy 09/2022- Endoscopy Findings: portal hypertensive gastropathy enteropathy small varices Colonoscopy Findings: polyp internal hemorrhoids diverticular disease features of chronic colitis and sequelae of healing Path: chronic mild inactive and active colitis on bx, no dysplasia, hyperplastic polyp I did w/u for worsening LFT ascitic fluid neg for SBP--only 1.9 L removed UA and culture pos for staph warneri--initially sent cipro due to pos UA but then sent bactrim once got confirmation on organism vedolizumab levels were v good HE finally had his liver transplant 06/2023-- repeat colonoscopy;01/17/24; chronic colitis and inflamamtion, lactoferrin elevated at 22 INTERIM: no complaints today getting entyvio--no problems no symptoms of colitis, stool is normal no gas symptoms no fevers or chills no cough or sputum no hematuria or rectal bleeding EXAM: GENERAL: The patient is alert, VITAL SIGNS:see workflow HEENT: normal sclerae, PERRLA, EOMI. Oropharynx clear. Moist mucous membranes. Conjunctivae appear well perfused. No thyroid mass. CHEST: Chest wall is nontender. HEART: Regular rate and rhythm without murmurs. LUNGS: Clear to auscultation bilaterally. ABDOMEN: Soft but distended, positive bowel sounds, nontender, no organom egaly.no flank tenderness--scar noted SKIN: No rash, no excessive bruising, petechiae, or purpura. NEUROLOGIC: Cranial nerves II-XII intact without motor/sensory deficit. 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 Surgical History S/P kyphoplasty Liver transplanted Hx of colonoscopy History of esophagogastroduodenoscopy (EGD) Family History Sister History of liver cancer Father Substance use disorder Social History Household Members: Spouse Household Members Other:: 2 Housing: House Do you presently have visiting nurse or other home services: No Alcohol intake: never Comment: OVERFLOW Patient Tobacco Use Status: Former Tobacco user Tobacco use type: Cigar e-Cigarette/Vaping Use: Never Used Second Hand Smoke Exposure: No Advance Directives Date on File: 12/31/21 service: No Current occupational status: disabled Cognitive needs: No Hearing needs: No Vision needs: No Physical Exam Vital Signs: Last Vital Signs Pulse 80 11/15/24 09:18 BP 122/84 11/15/24 09:18 BMI result Body Mass Index 40.2 Assessment & Plan Assessment & Plan (1) Hepatorenal syndrome: Code(s): K76.7 - Hepatorenal syndrome Category: Medical Plan: as above (2) IBD (inflammatory bowel disease): Code(s): K52.9 - Noninfective gastroenteritis and colitis, unspecified Category: Medical Plan: as above Orders: Orders Lactoferrin, Fecal, Quant. Today K51.50 - Left sided colitis without complications, K52.9 - Noninfective gastroenteritis and colitis, unspecified, K76.7 - Hepatorenal syndrome Complete Blood Count Auto Diff Today K52.9 - Noninfective gastroenteritis and colitis, unspecified, K76.7 - Hepatorenal syndrome Comprehensive Met. Panel Today K52.9 - Noninfective gastroenteritis and colitis, unspecified, K75.81 - Nonalcoholic steatohepatitis (RICKETTS), K76.7 - Hepatorenal syndrome Vitamin A Today K52.9 - Noninfective gastroenteritis and colitis, unspecified, K76.7 - Hepatorenal syndrome Vitamin B12 and Folate Today K52.9 - Noninfective gastroenteritis and colitis, unspecified, K76.7 - Hepatorenal syndrome Ferritin Today K52.9 - Noninfective gastroenteritis and colitis, unspecified, K76.7 - Hepatorenal syndrome C Reactive Protein Today K52.9 - Noninfective gastroenteritis and colitis, un specified, K76.7 - Hepatorenal syndrome Vitamin D 25-OH Total Today K52.9 - Noninfective gastroenteritis and colitis, unspecified, K76.7 - Hepatorenal syndrome Vitamin E Today K52.9 - Noninfective gastroenteritis and colitis, unspecified, K76.7 - Hepatorenal syndrome Vitamin K1 Today K52.9 - Noninfective gastroenteritis and colitis, unspecified, K76.7 - Hepatorenal syndrome Zinc Today K52.9 - Noninfective gastroenteritis and colitis, unspecified, K76.7 - Hepatorenal syndrome Coding Level of Care Code Est Pt Level 3 (25857) Diagnoses Hepatorenal syndrome K76.7 IBD (inflammatory bowel disease) K52.9
[2024-11-15 09:18] VITALS: BP 122/84; PULSE 80; BMI 40.2
== END 2024-11-15 09:33 | disposition home or self-care (01) ==
PROVIDERS: PCP Nurse Practitioner Family; Visit Provider Internal Medicine Gastroenterology
DX: K76.7 Hepatorenal syndrome (principal); K52.9 Noninfective gastroenteritis and colitis, unspecified
CPT/HCPCS: 99213

== ENCOUNTER 2024-11-15 09:10 | Outpatient (REF) | payer OTHER, SELFPAY ==
[2024-11-15 09:59] LABS: MANUAL DIFF FLAG NO
[2024-11-15 11:06] LABS: Basophils Percent Auto 0.8 % (0-2); Eosinophils Absolute Auto 0.1 X10*3/uL (0.0-0.4); Eosinophils Percent Auto 2.6 % (0-4); Hematocrit 42.8 % (42.0-52.0); Hemoglobin 13.7 g/dl (14.0-18.0); Imm Gran Abs Auto 0.01 X10*3/uL (0.00-0.03); Imm Gran Pct Auto 0.3 % (0.0-0.4); Lymphocytes Absolute Auto 1.2 X10*3/uL (1.2-4.9); Lymphocytes Percent Auto 30.4 % (20-40); Mean Corpuscular Hemoglobin 29.7 pg (27.0-33.0); Mean Corpuscular Volume 92.6 fL (80.0-98.0); Mean Platelet Volume 9.5 fL (9.4-12.4); Monocytes Absolute Auto 0.5 X10*3/uL (0.1-1.2); Monocytes Percent Auto 12.9 % (2-11); Neutrophils Absolute Auto 2.1 x10*3/uL (2.0-8.3); Platelet Count 289 X10*3/uL (160-400); Red Blood Count 4.62 X10*6/uL (4.60-5.80); Red Cell Distribution Width 12.6 % (11.0-16.0); White Blood Count 3.9 X10*3/uL (4.8-10.8)
[2024-11-15 11:46] LABS: Alanine Aminotransferase 36 U/L (0-40); Albumin Level 3.7 g/dL (3.5-5.0); Alkaline Phosphatase 173 U/L (39-117); Anion Gap 11 (12-20); Aspartate Amino Transferase 26 U/L (5-37); Bilirubin Total 0.2 mg/dL (0.0-1.0); Blood Urea Nitrogen 17 mg/dL (9-16); Calcium 8.7 mg/dL (8.4-10.2); Carbon Dioxide 20 mmol/L (22-29); Chloride 111 mmol/L (96-108); Estimated Glomerular Filt Rate > 60; Glucose Random 130 mg/dL (60-115); Potassium 4.3 mmol/L (3.3-5.1); Sodium 138 mmol/L (135-145); Total Protein 7.4 g/dL (6.5-8.0)
[2024-11-15 12:11] LABS: Ferritin 33 ng/mL (20-250); Vitamin D 25-OH Total 10.1 ng/mL (>30)
[2024-11-15 12:18] LABS: Folate 9.3 ng/mL (> or = 4.0); Vitamin B12 520 pg/mL (200-900)
[2024-11-17 20:39] LABS: Vitamin A 45 mcg/dL (38-98)
[2024-11-18 08:47] LABS: Zinc 58 mcg/dL (60-130)
[2024-11-19 02:48] LABS: Alpha-Tocopherol 10.4 mg/L (5.7-19.9); Beta-Gamma Tocopherol 1.4 mg/L (<=4.3)
[2024-11-19 19:04] LABS: Vitamin K1 375 pg/mL (130-1500)
== END 2024-11-15 09:11 | disposition home or self-care (01) ==
LOC: HO.LAB 09:10
PROVIDERS: PCP Nurse Practitioner Family; Visit Provider Internal Medicine Gastroenterology
DX: K52.9 Noninfective gastroenteritis and colitis, unspecified (principal); K76.7 Hepatorenal syndrome; K75.81 Nonalcoholic steatohepatitis (NASH)
CPT/HCPCS: 36415; 80053; 82306; 82607; 82728; 82746; 84446; 84590; 84597; 84630; 85025; 86140

== ENCOUNTER 2024-12-02 08:11 | Outpatient (REF) | payer OTHER, SELFPAY ==
[2024-12-07 23:53] LABS: Lactoferrin, Fecal, Quant. 79.59 mcg/mL (<7.25)
== END 2024-12-02 08:12 | disposition home or self-care (01) ==
LOC: HO.LNP 08:11
PROVIDERS: Visit Provider Internal Medicine Gastroenterology
DX: K51.50 Left sided colitis without complications (principal); K52.9 Noninfective gastroenteritis and colitis, unspecified; K76.7 Hepatorenal syndrome
CPT/HCPCS: 83631

== ENCOUNTER 2024-12-16 13:06 | Day surgery (SDC) | payer OTHER, SELFPAY ==
[2024-12-12 14:22] VITALS: BMI 37.9
--- NOTE | 2024-12-13 11:50 | HO.ANESPROP2 ---
Documented by User: Noemí Reid NP 12/13/24 11:52 HPI - Anesthesia Eval Consult details Narrative: 59yo M for Prostate Needle Biopsy with Bipolar button s/p liver transplant 06/2023. Hx ETOH with advanced cirrhosis and coagulopathy. Prednisone daily Follows [facility] Transplant clinic. Last office visit note requested Anesthesia Pre-Procedure Meds Is the patient on any of the following meds?: GLP1/DPP4 PMFSH Active Problems Active Problems: All Active Problems Incomplete emptying of bladder due to benign prostatic hyperplasia (Acute) Bladder outlet obstruction (Acute) Dyslipidemia (Acute) Elevated prostate specific antigen (PSA) (Acute) Nocturia (Acute) Onychomycosis (Acute) Encounter for routine adult physical exam with abnormal findings (Acute) Back pain (Acute) Diabetes (Acute) Lumbar back pain (Acute) Osteoporosis (Acute) Abnormal radionuclide bone scan (Acute) Hip fracture, left (Acute) Abnormal bone scan of thoracic spine (Acute) Compression fx, thoracic spine (Acute) HTN (hypertension) (Acute) Chronic lower back pain (Acute) UTI (urinary tract infection) (Acute) Ascites (Acute) IBD (inflammatory bowel disease) (Acute) Edema (Acute) Major depression, recurrent, chronic (Acute) Advanced hepatic cirrhosis (Acute) Overgrown toenails (Acute) Hepatorenal syndrome (Acute) Bacteremia due to Enterobacter species (Acute) Sepsis (Acute) Colitis (Acute) Acute sinusitis (Acute) Cough (Acute) Elevated blood sugar level (Acute) Hypomagnesemia (Acute) Hepatic encephalopathy (Acute) Cholestatic pruritus (Acute) Physical exam (Acute) Screening PSA (prostate specific antigen) (Acute) Murmur, heart (Acute) Vegetarian (Acute) Hypoalbuminemia (Acute) Coagulopathy (Acute) 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 (Acute) Past Medical History Medical History Osteoporosis Ascites Hepatic encephalopathy Coagulopathy Advanced hepatic cirrhosis Fatty liver Alcohol abuse Hypoalbuminemia Ulcerative colitis Coagulopathy Anemia 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 Family History Family History Sister History of liver cancer Father Substance use disorder Family history of problems with anesthesia: No Surgical History Surgical History S/P kyphoplasty Liver transplanted Hx of colonoscopy History of esophagogastroduodenoscopy (EGD) History of Problems with Anesthesia: No Social History Social History Household Members: Spouse Household Members Other:: 2 Housing: House Are you a primary patient care nursing assistant to a significant other at home: No Do you presently have visiting nurse or other home services: No Alcohol intake: never Comment: OVERFLOW Patient Tobacco Use Status: Current someday Tobacco user Tobacco use type: Cigar e-Cigarette/Vaping Use: Never Used Second Hand Smoke Exposure: No Use of substances other than those prescribed or required for medical reasons: No Have you been hit, kicked, punched, or otherwise hurt by someone within the past year? If so, by whom?: No Are you DNR?: No Advance Directives: No Advance Directives Information Provided: Yes Advance Directives Date on File: 12/31/21 Recently lost weight without trying: No Nutrition Risks: No Nutritional Risk Poor oral hygiene: No service: No Current occupational status: disabled Cognitive needs: No Hearing needs: No Vision needs: No Meds Allergies Allergy/AdvReac Type Severity Reaction Status Date / Time No Known Allergies Allergy Verified 12/16/24 13:16 [No Known Allergies*] Home Medications ?Medication ?Instructions ?Recorded ?Confirmed ?Last Taken ?Type aspirin 81 mg chewable tablet 1 tab PO DAILY 08/17/23 12/16/24 12/06/24 History magnesium oxide 400 mg (241.3 mg 800 mg PO TID 08/17/23 12/12/24 Unknown History magnesium) tablet mycophenolate mofetil 250 mg 750 mg PO BID 08/17/23 12/12/24 Unknown History capsule omeprazole 40 mg capsule,delayed 40 mg PO DAILY 08/17/23 12/12/24 Unknown History release tacrolimus 1 mg capsule, 1 mg PO BID 08/17/23 12/12/24 Unknown History immediate-release ursodiol 300 mg capsule 600 mg PO BID 08/17/23 12/12/24 Unknown History alcohol swabs (Easy Touch Alcohol pad topical BID 08/18/23 08/20/24 Unknown History Prep Pads) blood sugar diagnostic (FreeStyle #10 ea 08/18/23 08/20/24 Unknown History Lite Strips) blood-glucose meter (FreeStyle #1 ea 08/18/23 08/20/24 Unknown History Lite Meter kit) atovaquone 750 mg/5 mL oral 750 mg PO DAILY 09/27/23 12/12/24 Unknown History suspension pen needle, diabetic 31 gauge x #1,200 ea 08/20/24 08/20/24 Unknown History 04/04 (BD Ultra-Fine Short Pen Needle) prednisone 5 mg tablet 0.25 mg PO DAILY 11/15/24 12/12/24 Unknown History Exam Height,Weight and Vital Signs: Height 5 ft 8 in Weight 112.945 kg Pertinent Lab Results Pertinent Lab Results: Laboratory Tests 11/15/24 09:56 WBC 3.9 L Hgb 13.7 L Hct 42.8 Plt Count 289 D Sodium 138 Potassium 4.3 Chloride 111 H Carbon Dioxide 20 L BUN 17 H Creatinine 1.05 Assessment and Plan Assessment Anesthesia Assessment: Chart Reviewed Final Anesthetic Review Family History of Problems with Anesthesia: No History of Problems with Anesthesia: No Documented by User: Curt Jeong MD 12/16/24 15:11 [facility] Past Medical History Medical History Osteoporosis Ascites Hepatic encephalopathy Coagulopathy Advanced hepatic cirrhosis Fatty liver Alcohol abuse Hypoalbuminemia Ulcerative colitis Coagulopathy Anemia 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 Family History Family History Sister History of liver cancer Father Substance use disorder Surgical History Surgical History S/P kyphoplasty Liver transplanted Hx of colonoscopy History of esophagogastroduodenoscopy (EGD) Social History Social History Household Members: Spouse Household Members Other:: 2 Housing: House Are you a primary patient care nursing assistant to a significant other at home: No Do you presently have visiting nurse or other home services: No Alcohol intake: never Comment: OVERFLOW Patient Tobacco Use Status: Current someday Tobacco user Tobacco use type: Cigar e-Cigarette/Vaping Use: Never Used Second Hand Smoke Exposure: No Use of substances other than those prescribed or required for medical reasons: No Have you been hit, kicked, punched, or otherwise hurt by someone within the past year? If so, by whom?: No Are you DNR?: No Advance Directives: No Advance Directives Information Provided: Yes Advance Directives Date on File: 12/31/21 Recently lost weight without trying: No Nutrition Risks: No Nutritional Risk Poor oral hygiene: No service: No Current occupational status: disabled Cognitive needs: No Hearing needs: No Vision needs: No Meds Allergies Allergy/AdvReac Type Severity Reaction Status Date / Time No Known Allergies Allergy Verified 12/16/24 13:16 [No Known Allergies*] Home Medications ?Medication ?Instructions ?Recorded ?Confirmed ?Last Taken ?Type aspirin 81 mg chewable tablet 1 tab PO DAILY 08/17/23 12/16/24 12/06/24 History magnesium oxide 400 mg (241.3 mg 800 mg PO TID 08/17/23 12/12/24 Unknown History magnesium) tablet mycophenolate mofetil 250 mg 750 mg PO BID 08/17/23 12/12/24 Unknown History capsule omeprazole 40 mg capsule,delayed 40 mg PO DAILY 08/17/23 12/12/24 Unknown History release tacrolimus 1 mg capsule, 1 mg PO BID 08/17/23 12/12/24 Unknown History immediate-release ursodiol 300 mg capsule 600 mg PO BID 08/17/23 12/12/24 Unknown History alcohol swabs (Easy Touch Alcohol pad topical BID 08/18/23 08/20/24 Unknown History Prep Pads) blood sugar diagnostic (FreeStyle #10 ea 08/18/23 08/20/24 Unknown History Lite Strips) blood-glucose meter (FreeStyle #1 ea 08/18/23 08/20/24 Unknown History Lite Meter kit) atovaquone 750 mg/5 mL oral 750 mg PO DAILY 09/27/23 12/12/24 Unknown History suspension pen needle, diabetic 31 gauge x #1,200 ea 08/20/24 08/20/24 Unknown History 5/16 (BD Ultra-Fine Short Pen Needle) prednisone 5 mg tablet 0.25 mg PO DAILY 11/15/24 12/12/24 Unknown History Exam Airway Mallampati Class: I TM Dist: <=3cm Neck ROM: Full Partial: Upper Heart: ok Lungs: ok Assessment and Plan Assessment Anesthesia Assessment: Anesthesia Plan Discussed Final Anesthetic Review NPO: Yes ASA Class: III and IV Final Preanesthetic Review: No Changes in Pt Med Stat, Meds/Allgs Chart Reviewed, Consent Obtained/Reviewed and Anes Risks/Benef Reviewed Patient Risk: High Procedure Risk: Low Anesthetic Plan Anesthetic Plan: GA and Agree w/ Assess. and Plan Disposition: Standard PACU
[2024-12-16] VITALS (8 sets, daily range): BP systolic 115–147; BP diastolic 75–102; PULSE 54–68; RESP 14–16; TEMP 36.4–36.7; O2SAT 92–98; BMI 39.5
[2024-12-16] MEDS: Lactated Ringers 1,000 ML 100 ML IVCONT (13:43)
[2024-12-16 13:45] LABS: Glucose, Whole Blood 91 mg/dL (60-115)
--- NOTE | 2024-12-16 14:41 | MHC.SHP ---
Pre-Procedural Eval Section A - 24 Hr Update-Section A only Date of Service: 12/16/24 The patient is an INPATIENT: No Changes since office visit: No Cold of Flu in the past 2 weeks, No New Medical Problems, No Changes in Medication and No Patient answered all questions The patient has been examined within 24 hours of the surgical procedure. The History & Physical has been completed within 30 days and I have reviewed it.: Yes Section B - Complete if H&P > 30 days Chief Complaint: Elevated prostate specific antigen [PSA],Bladder-n Details of Present Illness: Elevated PSA with bladder outlet obstruction. Plan for prostate biopsy, plasma button prostate procedure Relevant Family History (Specify if Yes): No Relevant Social History: None Present Medications: see Short Stay Collaborative assessment Medical History: No relevant PMH History of Previous Operations: No relevant previous surgery Allergies: Allergies Allergy/AdvReac Type Severity Reaction Status Date / Time No Known Allergies Allergy Verified 12/16/24 13:16 [No Known Allergies*] Review of Systems Sugical H&P ROS: Negative: Constitution, Cardiovascular, Respiratory, Neurological, Psychiatric, Hem-Onc, Allergic/Immunologic, Gastrointestinal, Genitourinary, Musculoskeletal, Integumentary, Endocrine and Eyes/Ears/Nose/Throat Exam Surgical H&P Exam: Normal: HEENT, Normal: Heart, Normal: Lungs, Normal: Extremities, Normal: Abdomen, Normal: Skin and Normal: Neurological Plan Diagnosis/Plan: Unchanged I have reviewed the history and physical and performed a pertinent physical examination on my patient. No changes have occurred unless specified. Time Spent With Patient Time: Total time managing care of this patient today ____ minutes.
--- NOTE | 2024-12-16 16:32 | P.OP_ITS ---
Operative Note Operative Note Date of Service: 12/16/24 Narrative: Preoperative diagnosis: Elevated PSA and bladder outlet obstruction Postoperative diagnosis: Elevated PSA and BISHOP Procedure: 1. transrectal ultrasound measurement of prostate 3. transrectal ultrasound-guided prostate biopsy 12 core 4. Transurethral resection prostate using bipolar plasma button Surgeon: Dr. Arun Galaviz Anesthetic: 10cc 1% lidocaine Indications for procedure: Bladder outlet obstruction with elevated PSA [7.5] Counselling: Technical aspects, risks and benefits of proposed procedure were discussed in full. All questions have been answered, written consent has been obtained and patient agrees to proceed. Procedure: The patient was brought into the operating room. General anesthetic used per anesthesia. Patient was positioned in modified dorsal lithotomy position. Safety pause time out performed. SPENSER was performed to dilate rectal sphincter Iodine 10cc with 60 cc gel was placed per rectum to reduce infection risk using a catheter tip syringe. 8 Hz Enrique rectal end-fire ultrasound probe was placed transrectally without difficulty. The prostate was visualized. Seminal vesicles were normal. Prostate margins were clearly demarcated. Bladder was seen superiorly. No cystic structures were noted Minor calcifications were noted at the surgical margin The prostate was otherwise homogeneous in nature, no clear definitive transitional zone were chills or peripheral zone nodularity. The prostate was measured in 3 dimensions Prostatic Width: 4.5 cm Prostatic Height: 3.5 cm Urethral Length: 4.2 cm Total volume equals : 35 ml A 12 core biopsy was performed with 6 cores each side using an 18 gauge prostate biopsy gun. Two cores each were taken at the prostate apex, mid and base on each side. Cores were spaced between lateral and medial aspects. Each core was examined as placed on specimen foam as part of director supplier quality to ensure a minimum 1 cm of length and minimal discontinuity. A Twenty-four Tanzanian laser cystoscope was inserted per urethra. No abnormalities were found of the anterior and bulbar urethra. The prostatic urethra shows tight bladder neck. The bladder was examined and both ureteric orifices were seen in their normal positions away from the area of interest. Bladder trabeculation Grade 1. Using an Olympus bipolar plasma button grooves were 1st made at the 5 and 7 o'clock position. Each of these grooves were in line with respect of ureteric orifice. They were taken through the tight bladder neck and brought down to the level of the proximal portion of the veru. The groove was repeated several times until prostatic capsule was visible. The intervening median lobe tissue was then also removed. Coagulation was then used to ensure adequate hemostasis and control. This had opened up the prostate area. There was minimal lateral impingement. A decision was made to complete the procedure. At completion debris and pieces of prostate were removed from the bladder with irrigation. Both ureteric orifices were reviewed again in shown to be patent in away from any areas of energy damage. The apical area was reviewed and any stray mucosal ooze was controlled. A 22 Tanzanian 30 cc balloon Stubbs catheter was placed into the bladder using a flexible stylet. Clear efflux was obtained upon irrigation with a Ernie piston syringe. [30] cc was placed in the balloon and gentle traction was placed. A snap was used to hold tension on the catheter to control bleeding during patient moved and transported. A drainage bag was placed. Once transportation is complete to the PACU the snap will be removed. The patient tolerated the procedure well, he was extubated in the operating and transferred in a stable condition to the recovery area. Pathology: 12 core prostate biopsy CPT code 67479: Transrectal ultrasound; this is a diagnostic test for evaluation of the prostate and surrounding structures, looking for abnormalities or suspicious areas worrisome for cancer CPT code 34741: Biopsy, prostate; needle or punch, single or multiple, any approach
[2024-12-16] MEDS: fentaNYL citrate/PF 100 MCG/2 ML VIAL 50 MCG IVPUSH (16:53)
[2024-12-16] MEDS: oxyCODONE HCl Immed Release 5 MG TABLET PO (17:08)
[2024-12-16] MEDS: Acetaminophen 325 MG TABLET 975 MG PO (17:08)
--- OUTSIDE RECORDS SUMMARY | 2024-12-16 17:44 | XMS_ITS | Patient Health Record ---
Author Organization [facility] Address [address] [place] [address] Care Team Providers Care Data Analytics Analyst Name Role Phone Manpreet Avila Primary Care Provider Unavailabl e Allergies No Known Allergies Reason For Referral No Information Medications Medication SIG (Take, Route, Frequency, Duration) Notes Start Date End Date Status Oyster Shell Calcium 500 MG 1 tablet wit h food Orally Twice a day Active Xifaxan 550 MG 1 tablet Orally Twic e a day Active Sertraline HCl 25 MG 1 tablet Orally Onc e a day Active rifAMPin 150 MG 1 capsule Orally Onc e a day Active Omeprazole 20 MG 1 capsule 30 minutes before morning meal Orally Once a day Active Spironolactone 50 MG 1 tablet Orally Onc e a day Active Naftifine HCl 2 % 1 application Machine Tank Operator ally Once a day for 90 days 02/23/2023 Active Lialda 1.2 GM 2 tablets with a lyudmila l Orally Once a day Active Clotrimazole-Betamethasone 1-0.05 % 1 application to each foot Externally once a day for 30 days 02/15/2023 Active Plan Of Treatment No Information Insurance Providers Payer Name Payer Address Payer Phone Subscriber Number Group Number Insured Name Patient Relationship to Insured Coverage Start Date Coverage End Date [facility] [address] [place] [phone] [id number] Yaya Howell Self - patient is the insured Medical (General) History Medical History History ICD Code cirrhosis anxiety + COVID 10/2021 COVID vaccinated X 3 Hospitalization History Reason Date(Month/Year) cirrhosis
--- OUTSIDE RECORDS SUMMARY | 2024-12-16 17:45 | XMS_ITS | Clinical Summary ---
Author Organization [facility] Facility Address [address] [place] [id number] Care Team Providers Care Medical Information Specialist Name Role Phone Manpreet Avila NP Primary Care Provider [phone] Social History Tobacco Use Types Packs/Day Years Used Date Smoking Tobacco: Never Assessed Sex and Gender Information Value Date Recorded Sex Assigned at Not on file Legal Sex Male 8:28 AM EST Gender Identity Not on file Sexual Orientation Not on file Plan of Treatment Health Maintenance Due Date Last Done Comments Hepatitis B Vaccine (1 of 3 - 19+ 3-dose series) 1985 Colorectal Cancer Screening: Annual FOBT 2015 Colorectal Cancer Screening: Colonoscopy 2015 Colorectal Cancer Screening: Sigmoidoscopy 2015 Influenza Vaccine (#1) 2024 , 09/13/2018, 08/18/2014, Additional history exists Pneumococcal Vaccine: Pediatrics (0 to 5 Years) and At-Risk Patients (6 to 64 Years) Aged Out 03/08/2019 No longer eligible based on patient's age to complete this topic Insurance [facility] Care Teams Medical Information Specialist Relationship Specialty Start Date End Date Manpreet Avila NP [facility] [place] [address] PCP - General Nurse Practitioner 01/03/22
--- OUTSIDE RECORDS SUMMARY | 2024-12-16 17:45 | XMS_ITS ---
Author Organization [facility] Address [address] [address] Care Team Providers Care Layboy Tender Name Role Phone Manpreet Avila Primary Care Provider RACHEL Cherry [phone] REASON FOR VISIT 6 month f/u Encounters Encounter Location Date Provider Diagnosis [facility] [address] [address] 08/18/2023 RACHEL QUINONES Plan Of Treatment No Information Progress Notes * Gisela DOYLEhDOB:[birth year] (59 yo M)Acc No.[id number]:08/18/2023 Progress Note Patient:?Yaya DOYLE Provider:?Rachel Quinones DPM :1965???Age:57 Y???Sex:Male Parish e:08/18/2023 Address:[address] [place], [place] [id number] Pcp:Manpreet Avila Subjective: * Chief Complaints: * ???1. 6 month f/u. * Medical History:? Objective: * Vitals:? Assessment: Plan: * Treatment: * Billing Information: * Visit Code:? * Procedure Codes:? * Electronic signature of KONSTANTIN QUINONES D.P.M on 12/16/2024 at 05:44 PM EST Sign off status: Pending * Provider:Alicja Quinones DPM Date:? 08/18/2023 Generated for Printi ng/Faxing/eTransmitting on:?12/16/2024 05:44 PM EST
== END 2024-12-16 17:37 | disposition home or self-care (01) ==
PROVIDERS: PCP Nurse Practitioner Family; Visit Provider Urology
PROC: (CPT 55700; principal; 2024-12-16 14:40)
DX: N32.0 Bladder-neck obstruction (principal); R97.20 Elevated prostate specific antigen [PSA]; C61 Malignant neoplasm of prostate; E11.9 Type 2 diabetes mellitus without complications; Z94.4 Liver transplant status; Z79.82 Long term (current) use of aspirin; Z79.4 Long term (current) use of insulin; Z79.85 Long-term (current) use of injectable non-insulin antidiabetic drugs; Z79.899 Other long term (current) drug therapy; Z87.891 Personal history of nicotine dependence
CPT/HCPCS: 52601; 55700; 76942; 82947; 88305; A4649; J0736; J2003; J2704; J3010

== ENCOUNTER → 2024-12-16 13:06 | Outpatient (BNV) | payer OTHER, SELFPAY | PROVIDERS: PCP Nurse Practitioner Family; Visit Provider Urology | DX: R97.20 Elevated prostate specific antigen [PSA] (principal); N32.0 Bladder-neck obstruction | CPT/HCPCS: 55700; 76872; 76942 ==

== ENCOUNTER 2025-01-01 14:52 | Outpatient (AMB) | payer OTHER, SELFPAY ==
--- NOTE | 2025-01-01 15:08 | MHC.OFFVIS ---
Intake Visit Reasons: Prosta Bx results, Bipolar Button- follow up Intake Note: Pt presents to the office today for his prostate biopsy results,Bipolar button follow up. Allergies No Known Allergies [No Known Allergies*] Allergy (Verified 01/01/25 15:08) HPI Comments Details: Yaya is a pleasant male. He is a patient of Dr. Craven. He has seen for the following urologic conditions - elevated PSA - lower urinary tract symptoms - prostate cancer Background diabetes and liver transplant. Recently started Ozempic. Done well from bladder Procedure Effective stream Biopsy shows 2 cores positive prostate cancer Plan 4 month follow-up repeat PSA and prostate MRI Prostate Cancer - low volume, low-grade prostate cancer Histologic type: Adenocarcinoma, acinar type Histologic grade: [place] score: 3+3=6 (right apex lateral - 5%), 3+4=7 (Left mid lateral - 5%) Lower urinary tract symptoms Primarily obstructive in nature with difficulty on urination, weakness of stream Has been on combination therapy tamsulosin and finasteride Testosterone labs T 320 LH 7.3 - suggestive of testicular resistance Cystoscopy in office Tight bladder neck Bladder Procedure 01/14 - plasma button TURP Elevated PSA Progressive PSA 04/11 2.5, 04/12 6.9, 08/13 7.5 Has associated nocturia and previous UTI PFSH Medical History Osteoporosis Ascites Hepatic encephalopathy Coagulopathy Advanced hepatic cirrhosis Fatty liver Alcohol abuse Hypoalbuminemia Ulcerative colitis Coagulopathy Anemia 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 Surgical History S/P kyphoplasty Liver transplanted Hx of colonoscopy History of esophagogastroduodenoscopy (EGD) Family History Sister History of liver cancer Father Substance use disorder Social History Household Members: Spouse Household Members Other:: 2 Housing: House Are you a primary dialysis patient care technician to a significant other at home: No Do you presently have visiting nurse or other home services: No Alcohol intake: never Comment: was medicated Patient Tobacco Use Status: Current someday Tobacco user Tobacco use type: Cigar e-Cigarette/Vaping Use: Never Used Second Hand Smoke Exposure: No Advance Directives Date on File: 12/31/21 service: No Current occupational status: disabled Cognitive needs: No Hearing needs: No Vision needs: No Review of Systems Const Denies chills and Denies fever(s) Card Reports no additional complaints and Denies syncope Resp Denies cough GI Denies abdominal pain and Denies heartburn Reports as per HPI and Denies change in libido Neuro Denies syncope Psych Denies change in libido Endo Denies change in libido Physical Exam Const General: cooperative, healthy appearing, comfortable and no acute distress Orientation/consciousness: patient oriented x3 HEENT Face and sinus: Yes normal facial exam Mouth: moist mucous membranes Neck Neck: Yes normal visual inspection, Yes full ROM and Yes trachea midline Chest Chest palpation & inspection: normal inspection of the chest Resp Effort & Inspection: normal respiratory effort, able to speak in complete sentences and no respiratory distress GI Inspection: Yes normal to inspection Back/Spine/Pelvis Cervical Spine: normal cervical lordosis Thoracic/Lumbar Spine: thoracic and lumbar spine normal to inspection Skin General skin exam: no rashes or lesions noted Neuro General: patient oriented x3, gait normal, tone normal and moves all extremities Extrem General: Yes normal to inspection and Yes capillary refill normal Assessment & Plan Assessment & Plan (1) Hormone sensitive prostate cancer: Code(s): C61 - Malignant neoplasm of prostate; Z19.1 - Hormone sensitive malignancy status Category: Medical Plan Four month follow-up prostate MRI and PSA Orders: Orders Prostate Specific Antigen 4 Months C61 - Malignant neoplasm of prostate, Z19.1 - Hormone sensitive malignancy status MR Prostate wo/w con 4 Months C61 - Malignant neoplasm of prostate, Z19.1 - Hormone sensitive malignancy status Patient Instructions: This note is constructed using voice recognition software. While every effort has been made to ensure accuracy vp of marketing errors may have been included. Imaging studies, laboratory and physical exam results were discussed and reviewed in detail. No major barriers to patient understanding were identified. An opportunity to ask questions regarding the treatment plan was provided. All questions were answered. The patient expressed understanding and agreement with the above treatment plan. The patient is aware they should contact our office by phone for worsening of their current condition or the appearance of new urologic symptoms. Compliance is encouraged with any medications and followup testing that is ordered. It is a privilege to participate in the urologic care of your patient. If you have any questions or concerns regarding treatment for the above conditions, or other urologic issues, please do not hesitate to contact me. The office telephone contact is [phone]. Sincerely, Dr Arun Galaviz MD, [facility] - Urology Compassionate Specialist Care for the Genitourinary System Coding Level of Care Code Est Pt Level 4 (95125) Diagnoses Hormone sensitive prostate cancer C61; Z19.1
--- OUTSIDE RECORDS SUMMARY | 2025-01-01 16:04 | XMS_ITS ---
Author Organization [facility] Address [address] [address] Care Team Providers Care Cloud Automation Tester Name Role Phone Manpreet Avila Primary Care Provider RACHEL Cherry [phone] REASON FOR VISIT 6 month f/u Encounters Encounter Location Date Provider Diagnosis [facility] [address] [address] 08/18/2023 RACHEL QUINONES Plan Of Treatment No Information Progress Notes * Gisela DOYLEhDOB:[birth year] (59 yo M)Acc No.[id number]:08/18/2023 Progress Note Patient:?Yaya DOYLE Provider:?Rachel Quinones DPM :1965???Age:57 Y???Sex:Male Parish e:08/18/2023 Address:[address] [place], [place] [address] Pcp:Manpreet Avila Subjective: * Chief Complaints: * ???1. 6 month f/u. * Medical History:? Objective: * Vitals:? Assessment: Plan: * Treatment: * Billing Information: * Visit Code:? * Procedure Codes:? * Electronic signature of KONSTANTIN QUINONES D.P.M on 01/01/2025 at 04:04 PM EST Sign off status: Pending * Provider:Alicja Quinones DPM Date:? 08/18/2023 Generated for Printi ng/Faxing/eTransmitting on:?01/01/2025 04:04 PM EST
--- OUTSIDE RECORDS SUMMARY | 2025-01-01 16:04 | XMS_ITS | Clinical Summary ---
Author Organization [facility] Facility Address [address] [place] [address] Care Team Providers Care Hydrometeorological Technician Name Role Phone Manpreet Avila NP Primary Care Provider [phone] Social History Tobacco Use Types Packs/Day Years [...] patient's age to complete this topic Insurance [facility] Care Teams Hydrometeorological Technician Relationship Specialty Start Date End Date Manpreet Avila NP [facility] [place] [address] PCP - General Nurse Practitioner 01/03/22
--- OUTSIDE RECORDS SUMMARY | 2025-01-01 16:04 | XMS_ITS | Patient Health Record ---
Author Organization [facility] Address [address] [facility] [address] [place] [address] Care Team Providers Care Wooden Box Maker Name Role Phone Manpreet Avila Primary Care [...] Active Naftifine HCl 2 % 1 application Nurse Practitioner Home Assessments ally Once a day for 90 days [...] Insured Coverage Start Date Coverage End Date [facility] [address] [place] [address] [id number] Yaya Howell Self - patient is the insured Medical (General) History Medical History History ICD Code cirrhosis anxiety + COVID 10/2021 COVID vaccinated X 3 Hospitalization History Reason Date(Month/Year) cirrhosis
--- OUTSIDE RECORDS SUMMARY | 2025-01-01 16:05 | XMS_ITS | Data Portability ---
Author Organization [facility] [place], [facility] Address [address] [place] [address] Care Team Providers Care Ramp And Cargo Supervisor Name Role Phone KENDAL TORRES Primary Care Provider [phone] Assessment No assessment recorded. Plan of Treatment Reminders Order Date Submit Date Provider Last Modified By Organization Details Last Modified Time Details Appointments None record ed. Lab None record ed. Referral None record ed. Procedures None record ed. Surgeries None record ed. Imaging XR, foot, 3 or more view 019 02/14/20 19 lee In-Office Order, Internal Use Only DO Not Attach Compendium DO Not Attach Compendium, Do Not Delete/merge, [id number] 12:50:28 Medication Orders None record ed. Patient TargetsNo targets recorded. Patient Instructions Encounter Date Encounter Id Patient Instructions Last Modified By Organization Details Last Modified Time 03/01/2018 [id number] HISTORY: Mr. Howell is a 52-year-old gentleman who presents to the office today for evaluation of his bilateral foot pain. He reports discomfort along the ball of his foot and reports feeling knots in this area for the past several months. He reports that his symptoms started on January 04, 2016 and reports some sensory changes at his toes. He denies any history of diabetes, but has been diagnosed with ulcerative colitis. He is not on any medications which would interfere with his feet, and has tried some shoe wear modifications including pads and different varieties of shoes which have only temporarily improved his symptoms. He comes into the office today for discussion of further treatment. PHYSICAL EXAMINATION: Mr. Howell is a well-developed gentleman in no acute distress. Examination of the foot and ankle demonstrate normal clinical appearance to the skin and soft tissues. Ankle and hindfoot motion are well maintained with no mechanical blockage to movement. Palpation along the plantar surface of his foot demonstrates no discrete palpable mass or other soft tissue abnormality. RADIOGRAPHS: Radiographic images of the feet were obtained at [facility]. I have had a chance to look at those studies and there is no distinct bone or soft tissue findings. The official report also suggests normal findings. ASSESSMENT AND PLAN: Mr. Howell' bilateral foot complaints appear to be centered along the soles of both feet mostly along the metatarsal heads. Palpation in this area demonstrates no discrete palpable mass or other soft tissue abnormality. We have discussed further treatment of his feet with the use of ice and orthotics to alleviate pressure. We can consider use of an orthotic device in his shoes versus proceeding with an MRI to help clarify if this is actually a structural defect. He understands what is involved in his care and would like to proceed with an orthotic at this time. He will let me know if he has continued symptoms and we can always consider an EMG study to rule out some neuropathic process causing his complaints. [email or web address] Not available 03/05/2018 22:46:45 02/13/2019 [id number] Mr. Howell is a 53-year-old man seen today for another opinion regarding bilateral foot pain. He had seen Dr. Cain February 2018 and was diagnosed with metatarsalgia. He thinks the problem has persisted and has been an ongoing concern for about 2 years. He recalls an onset sometime in December 2016. Pain is constant somewhat independent of activity. Symptoms best localized to the ball area right greater than left. He notes he feels its that something is rolled up under his sock and at the toes feel swollen even though when he checks they look normal. No symptoms proximal to the hindfoot or ankle. He denies history of back pain. Examination: Limb and foot alignment is symmetric. Dystrophic toenails but no swelling or inflammatory findings. He was quite tender along the metatarsal heads an interdigital areas between the 2? 4 toes right greater than left. Sensory was intact to 10 g and pinprick but somewhat hypersensitive on the plantar nerves of the right foot. Dorsally he seemed relatively normal. No Tin sign. Sitting straight leg raise test negative. Reflexes diminished but symmetric. Motor testing normal. No significant callus or other focal skin findings. Hindfoot and ankle movements are supple and asymptomatic. Radiology: Weightbearing 3 view x-rays both feet were taken to assess his condition. No underlying bone disease or significant degenerative changes that would account for his symptoms. Impression: Patient's history and symptoms are consistent with a neuropathic condition / peripheral neuropathy. I discussed this with him. Upon questioning he apparently he saw someone for nerve testing last year, the results are not known. He did not think they were diagnostic. He may have tried a medication such as gabapentin but again details are not clear from his history. Further questioning reveals significant ethanol use of about 1 case of beer per week. This may be a significant factor in his case and this was discussed. I don't think is an indication for any intervention for his feet, he has orthotics. He needs to have workup to rule out treatable causes of peripheral neuropathy vitamin B etc. He's going to discuss that with Dr. Torres. I suspect his EtOH use is a significant factor. Questions answered he'll return on an as-needed basis. lee Not available 02/13/2019 09:36:25 Reason for Referral None Reported. Results Created Date Observation Date Name Description Value Unit Range Abnormal Flag Note LastModifiedBy Organization Detail LastModifiedTime Result Notes None recorded. Problems No Known Problems Medical Equipment None Reported. Allergies No known drug allergies Medications Name Sig Start Date Stop Date Status Note LastModified by Organization Details LastModified Time prednisone 10 mg tablet 02/13 completed Not Available Not Available Not Available sucralfate 1 gram tablet 02/13 completed Not Available Not Available Not Available prednisone 20 mg tablet 03/01 completed Not Available Not Available Not Available sertraline 100 mg tablet 02/13 completed Not Available Not Available Not Available acetaminophen 300 mg-codeine 30 mg tablet 03/01 completed Not Available Not Available Not Available acyclovir 400 mg tablet 02/13 completed Not Available Not Available Not Available propranolol 10 mg tablet 03/01 completed Not Available Not Available Not Available methocarbamol 750 mg tablet 03/01 completed Not Available Not Available Not Available pantoprazole 40 mg tablet,delaye d release 02/13 completed Not Available Not Available Not Available ursodiol 300 mg capsule active Not Available Not Available N ot Available Viagra 100 mg tablet 02/13 completed Not Available Not Available Not Available ibuprofen 600 mg tablet 03/01 completed Not Available Not Available Not Available zolpidem 10 mg tablet Take 1 tablet every day by oral route. 02/13 completed Not Available Not Available Not Available chlorpromazin e 50 mg tablet 02/13 completed Not Available Not Available Not Available cyclobenzapri ne 5 mg tablet 03/01 completed Not Available Not Available Not Available MoviPrep 100 gram-7.5 gram-2.691 gram oral powder packet 02/13 completed Not Available Not Available Not Available mesalamine 1.2 gram tablet,delaye d release 02/13 completed Not Available Not Available Not Available diclofenac 1 % topical gel 03/01 completed Not Available Not Available Not Available Naftin 2 % topical gel 03/01 completed Not Available Not Available Not Available Vitals Date Recorded Body height Body mass index (BMI) Body weight Heart rate Systolic blood pressure Diastolic blood pressure Provider Name and Address Organization Details Last Updated DateTime 8 175.26 cm 33.2 kg/m2 902563. 28 g 77 /min 138 mm[Hg] 82 mm[Hg] Kendy Goodrich [facility], [place] 8 08:26:44 Date Recorded Body height Body mass index (BMI) Body weight Heart rate Systolic blood pressure Diastolic blood pressure Provider Name and Address Organization Details Last Updated DateTime 9 175.26 cm 36.2 kg/m2 833226. 13 g 67 /min 154 mm[Hg] 102 mm[Hg] Ana Garay [facility], [place] 9 09:20:53 Social History Question Answer Notes LastModified by Organizat ion Details LastModified Time Tobacco Smoking Status Never Smoker Kendy pressley [facility], [place] 03/01/2018 08:32:50 Accident Related Injury No [email or web address] Information not available 03/01/2018 What Is Your Level Of Alcohol Consumption? Moderate [email or web address] Information not available 03/01/2018 Auto Related Injury? No [email or web address] Information not available 03/01/2018 How Much Tobacco Do You Chew? None [email or web address] Information not available 03/01/2018 Live Alone Or With Others? With Others [email or web address] Information not available 03/01/2018 Represented By An Tree Climber? No Information not available 03/01/2018 Marital Status [email or web address] Informat ion not available 03/01/2018 What Was The Date Of Your Most Recent Tobacco Screening? 02/13/2019 Information not available 06/13/2019 How Much Tobacco Do You Smoke? No [email or web address] Information not available 03/01/2018 Work Related Injury? No [email or web address] Information not available 03/01/2018 Sex: Unknown Functional Status None recorded. Mental Status None recorded. Family History Relationship Description Onset Age of this Age Resolved Age Notes LastModified by Organization Details LastModified Time Father No current problems or disability [email or web address] Not available 01/19 09:08:41 Mother No current problems or disability [email or web address] Not available 01/19 09:08:41 Medical History Condition Response HIV N High blood pressure Y Gout N Osteoarthritis N Cardiac Stents N Claustrophobia N Scoliosis N Thyroid disorder N MRSA N Rheumatoid arthritis N Blood clots N Depression N Bleeding tendency N Currently ? N Diabetes Type 2 N Sleep apnea, no CPAP required? N Kidney disease N Respiratory problems N Anxiety Disorder N Diabetes Type 1 N Defibrillator/Pacemaker N Kidney stones N Cancer N Heart attack N Stroke N Asthma N Psoriasis N Seizure disorder N Cardiac problems N Bipolar Disorder N Ulcers/GERD Y Hepatitis N Sleep apnea with use of CPAP? N Osteoporosis N Past Encounters Encounter ID Performer Location Encounter Start Date Encounter Closed Date Diagnosis/Indication Diagnosis SNOMED-CT Code Diagnosis ICD10 Code Diagnosis Note [id number] ARSH CAIN MD Main Office [address] [facility],[address] [place] [address] 03/01/2018 07:56:19 03/01/2018 08:57:54 Foot pain 74659836 M79.671 M79.672 Metatarsalgia 91440272 M 77.41 M77.42 [id number] [facility] [address] [facility] [place] [address] 02/13/2019 08:13:32 02/13/2019 09:21:14 Foot pain 39739875 M79.671 M79.672 Idiopathic peripheral neuropathy 23194964 G60.8 Health Concerns Section Related Observation LastModified by Organization Detai ls LastModified Time None Recorded Concern Status LastModified by Organization Details LastModified Time None Recorded Advance Directives Directive None Recorded Payers Encounter Date Sequence Insurance Name Policy Number Policy Reynolds Covered Member ID Reynolds Member ID Guarantor Name 03/01/2018 1 [facility] [id number] Yaya Howell [id number] Yaya Howell 02/13/2019 1 [facility] [id number] Yaya Howell [id number] 1 Yaya Howell Notes Date Note Type Note Provider Name and Address Organization Details Recorded Time 03/01/2018 text/html Foot/ToeReported bypatient.Location: bilateral Duration:1 years Timing:chronic Context:cannot identify Alleviating Factors:nothing helps ARSH CAIN MD [address] [facility],[address], [place], [address], [facility], [place] 03/05/2018 22:46:54 02/13/2019 text/html Foot/ToeReported bypatient.Location: bilateral; plantar (Forefoot) Quality:throbbing; constant; worsening Severity:moderate Duration:date of onset: Approximately 2 years Timing:chronic Context:cannot identify Alleviating Factors:sitting; rest Aggravating Factors:standing; walking; weightbearing Previous Surgery:none Prior Imaging:x ray Previous Injections:none Previous PT:none Work Related:no Jeff pressley [facility], [place] 02/13/2019 09:36:31
== END 2025-01-01 16:04 | disposition home or self-care (01) ==
PROVIDERS: PCP Nurse Practitioner Family; Visit Provider Urology
DX: C61 Malignant neoplasm of prostate (principal); Z19.1 Hormone sensitive malignancy status
CPT/HCPCS: 99214

== ENCOUNTER → 2025-01-01 14:52 | Outpatient (BNVA) | payer OTHER, SELFPAY | PROVIDERS: PCP Nurse Practitioner Family; Visit Provider Urology ==

== ENCOUNTER 2025-04-08 07:05 | Outpatient (REF) | payer OTHER, SELFPAY ==
--- OUTSIDE RECORDS SUMMARY | 2025-04-08 07:09 | XMS_ITS | Clinical Summary ---
Author Organization [facility] Facility Address [address] [place] [address] Care Team Providers Care Bar Staff Name Role Phone Manpreet Avila NP Primary Care Provider [phone] Social History Tobacco Use Types Packs/Day Years [...] Colonoscopy 2015 Colorectal Cancer Screening: Sigmoidoscopy 2015 Pneumococcal Vaccine: 50+ Ye ars (2 of 2 - PCV) 03/08/2020 03/08/2019 Influenza Vaccine (Season Ended) 2025 12/15/2020, 09/13/2018, 08/18/2014, Additional history exists Pneumococcal Vaccine: Peds ( 0 to 5 Years) and At-Risk Patients (6 to 49 Years) Discontinued 03/08/2019 Insurance [facility] Care Teams Bar Staff Relationship Specialty Start Date End Date Manpreet Avila NP [address] [place] [address] PCP - General Nurse Practitioner 01/03/22
--- OUTSIDE RECORDS SUMMARY | 2025-04-08 07:09 | XMS_ITS | Patient Health Record ---
Author Organization [facility] Address [address] [facility] [address] [place] [address] Care Team Providers Care Hyperbaric Tech Name Role Phone Manpreet Avila Primary Care [...] Active Naftifine HCl 2 % 1 application Ophthalmic Medical Assistant ally Once a day for 90 days [...] Start Date Coverage End Date [facility] [address] [facility] [address] [place] [address] [id number] Yaya Howell Self - patient is the insured Medical (General) History Medical History History ICD Code cirrhosis anxiety + COVID 10/2021 COVID vaccinated X 3 Hospitalization History Reason Date(Month/Year) cirrhosis
--- OUTSIDE RECORDS SUMMARY | 2025-04-08 07:10 | XMS_ITS | Data Portability ---
Author Organization [facility] [place], [facility] Address [address] [place] [address] Care Team Providers Care Second Baker Name Role Phone KENDAL TORRES Primary Care Provider Assessment No assessment recorded. Plan of Treatment [...] DO Not Attach Compendium, Do Not Delete/merge, [id number] 12:50:28 Medication Orders None record ed. Patient TargetsNo targets recorded. Patient Instructions Encounter Date Encounter Id Patient Instructions Last Modified By Organization Details Last Modified Time 03/01/2018 [id number] HISTORY: Mr. Howell is a 52-year-old gentleman [...] images of the feet were obtained at [facility]. I have had a chance [...] complaints. [email or web address] Not available 03/05/2018 22:46:45 02/13/2019 [id number] Mr. Howell is a 53-year-old man seen [...] Updated DateTime 8 175.26 cm 33.2 kg/m2 952655. 28 g 77 /min 138 mm[Hg] 82 mm[Hg] Kendy Goodrich [facility], [place] 8 08:26:44 Date Recorded Body height Body mass index (BMI) Body weight Heart rate Systolic blood pressure Diastolic blood pressure Provider Name and Address Organization Details Last Updated DateTime 9 175.26 cm 36.2 kg/m2 929532. 13 g 67 /min 154 mm[Hg] 102 mm[Hg] Ana Garay [facility], [place] 9 09:20:53 Social History Question Answer Notes LastModified by Organizat ion Details LastModified Time Tobacco Smoking Status Never Smoker Kendy pressley [facility], [place] 03/01/2018 08:32:50 Accident Related Injury No [email or web address] Information not available 03/01/2018 Auto Related Injury? No Information not available 03/01/2018 How Much Tobacco Do You Chew? None [email or web address] Information not available 03/01/2018 Live Alone Or With Others? With Others [email or web address] Information not available 03/01/2018 Represented By An Rehanger? No [email or web address] Information not available 03/01/2018 Marital Status [email or web address] Informat ion not available 03/01/2018 What Was The Date Of Your Most Recent Tobacco Screening? 02/13/2019 Information not available 06/13/2019 How Much Tobacco Do You Smoke? No Information not available 03/01/2018 Work Related Injury? No [email or web address] Information not available 03/01/2018 Sex: Unknown Functional Status Question Answer Note LastModified by Organization D etails LastModified Time What is your level of alcohol consumption? Moderate [email or web address] Information not available 03/01/2018 Mental Status None recorded. Family History Relationship [...] Claustrophobia N Scoliosis N Thyroid disorder N Blood clots N MRSA N Rheumatoid arthritis N Depression N Bleeding tendency N Currently ? N Diabetes Type 2 N Sleep apnea, no CPAP required? N Kidney disease N Respiratory problems N Anxiety Disorder N Diabetes Type 1 N Defibrillator/Pacemaker N Kidney stones N Cancer N Heart attack N Stroke N Asthma N Seizure disorder N Psoriasis N Cardiac problems N Bipolar Disorder N Ulcers/GERD Y Hepatitis N Sleep apnea with use of CPAP? N Osteoporosis N Past Encounters Encounter ID Performer Location Encounter Start Date Encounter Closed Date Diagnosis/Indication Diagnosis SNOMED-CT Code Diagnosis ICD10 Code Diagnosis Note [id number] ARSH CAIN MD Main Office [address] [facility],[address] [place] [address] 03/01/2018 07:56:19 03/01/2018 08:57:54 Foot pain 95440543 M79.671 M79.672 Metatarsalgia 18996649 M 77.41 M77.42 [id number] Jeff Centeno MD [facility] 7th Floor [address] [facility] [place] [address] 02/13/2019 08:13:32 02/13/2019 09:21:14 Foot pain 00084766 M79.671 M79.672 Idiopathic peripheral neuropathy 47189058 G60.8 Health Concerns Section Related Observation LastModified by Organization Detai ls LastModified Time None Recorded Concern Status LastModified by Organization Details LastModified Time None Recorded Advance Directives Directive None Recorded Payers Insurance Date Sequence Insurance Name Policy Number Policy Reynolds Covered Member ID Reynolds Member ID Guarantor Name 02/12/2019 1 [employer] [id number] Yaya Howell [id number] Yaya Howell Notes Date Note Type Note Provider Name and Address Organization Details Recorded Time 03/01/2018 text/html Foot/ToeReported bypatient.Location: bilateral Duration:1 years Timing:chronic Context:cannot identify Alleviating Factors:nothing helps ARSH CAIN MD [address] [facility],[address], [place], [address] 03/05/2018 22:46:54 02/13/2019 text/html Foot/ToeReported bypatient.Location: bilateral; plantar (Forefoot) Quality:throbbing; constant; worsening Severity:moderate Duration:date of onset: Approximately 2 years Timing:chronic Context:cannot identify Alleviating Factors:sitting; rest Aggravating Factors:standing; walking; weightbearing Previous Surgery:none Prior Imaging:x ray Previous Injections:none Previous PT:none Work [facility]no [facility] 02/13/2019 09:36:31
[2025-04-08 10:19] LABS: MANUAL DIFF FLAG NO
[2025-04-08 10:21] LABS: Basophils Percent Auto 0.6 % (0-2); Eosinophils Absolute Auto 0.2 X10*3/uL (0.0-0.4); Eosinophils Percent Auto 4.6 % (0-4); Hematocrit 42.5 % (42.0-52.0); Hemoglobin 14.1 g/dl (14.0-18.0); Imm Gran Abs Auto 0.01 X10*3/uL (0.00-0.03); Imm Gran Pct Auto 0.3 % (0.0-0.4); Lymphocytes Percent Auto 30.1 % (20-40); Mean Corpuscular HGB Conc 33.2 g/dl (31.0-36.0); Mean Corpuscular Hemoglobin 29.8 pg (27.0-33.0); Mean Corpuscular Volume 89.9 fL (80.0-98.0); Mean Platelet Volume 9.8 fL (9.4-12.4); Monocytes Absolute Auto 0.4 X10*3/uL (0.1-1.2); Monocytes Percent Auto 13.1 % (2-11); Neutrophils Absolute Auto 1.7 x10*3/uL (2.0-8.3); Neutrophils Percent Auto 51.3 % (45-73); Platelet Count 251 X10*3/uL (160-400); Red Blood Count 4.73 X10*6/uL (4.60-5.80); Red Cell Distribution Width 13.3 % (11.0-16.0); White Blood Count 3.3 X10*3/uL (4.8-10.8)
[2025-04-08 10:25] LABS: Appearance Urine Clear; Color Urine Yellow; Glucose Urine UA Negative (Negative); Leukocyte Esterase Urine Negative (Negative); Nitrite Urine Negative (Negative); PH 5.5 (5.0-9.0); Specific Gravity - Urine 1.025 (1.005-1.025); Urine Blood Negative (Negative); Urine Ketones Trace mg/dL (Negative); Urine Protein Negative (Neg-Trace)
[2025-04-08 10:41] LABS: Estimated Average Glucose 169 mg/dL; Hemoglobin A1C 215.5423 umol/L; Hemoglobin A1c % 7.5 % (<6.0); Total Hemoglobin (HGBA1C) 3673.2851 umol/L
[2025-04-08 10:57] LABS: Anion Gap 10 (12-20); Blood Urea Nitrogen 19 mg/dL (9-16); Carbon Dioxide 22 mmol/L (22-29); Chloride 112 mmol/L (96-108); Potassium 4.3 mmol/L (3.3-5.1); Sodium 140 mmol/L (135-145)
[2025-04-08 10:58] LABS: Alanine Aminotransferase 34 U/L (0-40); Albumin Level 3.7 g/dL (3.5-5.0); Alkaline Phosphatase 168 U/L (39-117); Aspartate Amino Transferase 33 U/L (5-37); Bilirubin Total 0.3 mg/dL (0.0-1.0); Cholesterol 163 mg/dL (<200); Estimated Glomerular Filt Rate > 60; Glucose Fasting 128 mg/dL (60-99); HDL Cholesterol 41 mg/dL (>40); LDL Cholesterol Calculated 101 mg/dL (<100); TSH reflex Free T4 2.09 uIU/mL (0.32-4.0); Total Protein 7.2 g/dL (6.5-8.0); Triglycerides 107 mg/dL (<150)
[2025-04-08 11:28] LABS: Creatinine Urine 289.47 mg/dL; Microalbum/Creatinine Ratio Ur 7.9 ug/mg cr (<30)
== END 2025-04-08 07:06 | disposition home or self-care (01) ==
LOC: HO.HMGCLDS 07:05
PROVIDERS: PCP Nurse Practitioner Family; Visit Provider Nurse Practitioner Family
DX: E11.9 Type 2 diabetes mellitus without complications (principal)
CPT/HCPCS: 36415; 80053; 80061; 81003; 82043; 82570; 83036; 84443; 85025

== ENCOUNTER 2025-04-28 11:31 | Outpatient (REF) | payer OTHER, SELFPAY ==
[2025-04-28 11:47] LABS: MANUAL DIFF FLAG NO
[2025-04-28 12:06] LABS: Basophils Percent Auto 0.7 % (0-2); Eosinophils Absolute Auto 0.2 X10*3/uL (0.0-0.4); Eosinophils Percent Auto 4.4 % (0-4); Imm Gran Abs Auto 0.01 X10*3/uL (0.00-0.03); Imm Gran Pct Auto 0.2 % (0.0-0.4); Lymphocytes Absolute Auto 1.2 X10*3/uL (1.2-4.9); Lymphocytes Percent Auto 28.8 % (20-40); Mean Corpuscular HGB Conc 33.3 g/dl (31.0-36.0); Mean Platelet Volume 9.4 fL (9.4-12.4); Monocytes Absolute Auto 0.5 X10*3/uL (0.1-1.2); Monocytes Percent Auto 11.9 % (2-11); Neutrophils Absolute Auto 2.2 x10*3/uL (2.0-8.3); Platelet Count 277 X10*3/uL (160-400); White Blood Count 4.1 X10*3/uL (4.8-10.8)
[2025-04-28 12:33] LABS: Alanine Aminotransferase 91 U/L (0-40); Alkaline Phosphatase 273 U/L (39-117); Anion Gap 13 (12-20); Aspartate Amino Transferase 80 U/L (5-37); Bilirubin Total 0.3 mg/dL (0.0-1.0); Blood Urea Nitrogen 19 mg/dL (9-16); C Reactive Protein 1.09 mg/dL (< or = 0.50); Carbon Dioxide 20 mmol/L (22-29); Chloride 109 mmol/L (96-108); Estimated Glomerular Filt Rate 57; Glucose Random 155 mg/dL (60-115); Potassium 4.5 mmol/L (3.3-5.1); Sodium 137 mmol/L (135-145); Total Protein 7.7 g/dL (6.5-8.0)
[2025-04-28 12:47] LABS: Ferritin 61 ng/mL (20-250)
[2025-04-28 12:49] LABS: Prostate Specific Antigen 6.01 ng/mL (<0.05-4.0)
--- OUTSIDE RECORDS SUMMARY | 2025-04-28 13:10 | XMS_ITS | Patient Health Record ---
Author Organization [facility] Address [address] [facility] [address] [place] [address] Care Team Providers Care Neck Fitter Name Role Phone Manpreet Avila Primary Care [...] Active Naftifine HCl 2 % 1 application Speech Pathology Assistant ally Once a day for 90 [...] Insured Coverage Start Date Coverage End Date [facility] [address] [facility] [address] [place] [address] [id number] Yaya Howell Self - patient is the insured Medical (General) History Medical History History ICD Code cirrhosis anxiety + COVID 10/2021 COVID vaccinated X 3 Hospitalization History Reason Date(Month/Year) cirrhosis
[2025-05-12 11:43] LABS: Vedolizumab 23.1; Vedolizumab Antibody <9.8
== END 2025-04-28 11:32 | disposition home or self-care (01) ==
LOC: HO.LAB 11:31
PROVIDERS: Urology; PCP Nurse Practitioner Family; Visit Provider Internal Medicine Gastroenterology
DX: Z12.5 Encounter for screening for malignant neoplasm of prostate (principal); C61 Malignant neoplasm of prostate; K52.9 Noninfective gastroenteritis and colitis, unspecified; K75.81 Nonalcoholic steatohepatitis (NASH); Z19.1 Hormone sensitive malignancy status
CPT/HCPCS: 36415; 80053; 80280; 82728; 83520; 84153; 85025; 86140

== ENCOUNTER 2025-05-01 08:20 | Outpatient (REF) | payer OTHER, SELFPAY ==
--- OUTSIDE RECORDS SUMMARY | 2025-05-01 08:24 | XMS_ITS | Patient Health Record ---
Author Organization [facility] Address [address] [facility] [address] [place] [address] Care Team Providers Care Agile Project Manager Name Role Phone Manpreet Avila Primary Care [...] Active Naftifine HCl 2 % 1 application Third Helper ally Once a day for 90 days [...] Insured Coverage Start Date Coverage End Date [facility] [address] [facility] [address] [place] [address] [id number] Yaya Howell Self - patient is the insured Medical (General) History Medical History History ICD Code cirrhosis anxiety + COVID 10/2021 COVID vaccinated X 3 Hospitalization History Reason Date(Month/Year) cirrhosis
== END 2025-05-01 08:21 | disposition home or self-care (01) ==
LOC: HO.MRI 08:20
PROVIDERS: PCP Nurse Practitioner Family; Visit Provider Urology
DX: Z13.89 Encounter for screening for other disorder (principal)

== ENCOUNTER 2025-05-02 07:30 | Outpatient (RCR) | payer OTHER, SELFPAY ==
[2024-02-20 12:05] VITALS: BP 141/95; PULSE 81; RESP 18; TEMP 37.1; O2SAT 100; BMI 37.8
[2024-03-05 12:22] VITALS: BP 125/93; PULSE 90; RESP 16; TEMP 36.4; O2SAT 99
[2024-04-02 07:19] VITALS: BP 146/80; PULSE 79; RESP 16; TEMP 37.3; O2SAT 99
[2024-04-02 08:12] VITALS: BP 115/74; PULSE 67; RESP 16
[2024-04-02 08:20] VITALS: BP 123/73; PULSE 72; RESP 16
[2024-04-02 08:30] VITALS: BP 119/71; PULSE 70; RESP 16
[2024-04-02 08:40] VITALS: BP 114/71; PULSE 68; RESP 16
[2024-04-02] MEDS: 0.9 % Sodium Chloride Flush 10 ML SYRINGE 5 ML IVFLUSH (08:42)
[2024-05-28 07:37] VITALS: BP 106/68; PULSE 82; RESP 20; TEMP 36.9; O2SAT 99
[2024-05-28 08:30] VITALS: BP 120/79; PULSE 81; RESP 18
[2024-05-28 09:01] VITALS: BP 116/82; PULSE 69; RESP 18
[2024-05-28] MEDS: 0.9 % Sodium Chloride Flush 10 ML SYRINGE 5 ML IVFLUSH (09:04)
[2024-07-23 07:08] VITALS: BP 132/86; PULSE 72; RESP 16; TEMP 36.3; O2SAT 99
[2024-07-23] MEDS: 0.9 % Sodium Chloride Flush 10 ML SYRINGE 5 ML IVFLUSH (08:25)
[2024-08-23 08:34] VITALS: BP 124/86; PULSE 80; RESP 14; TEMP 36.3; O2SAT 98
[2024-08-23] MEDS: 0.9 % Sodium Chloride Flush 10 ML SYRINGE 5 ML IVFLUSH (09:59)
[2024-09-17 07:30] VITALS: BP 128/85; PULSE 77; RESP 14; TEMP 37.3; O2SAT 100
[2024-09-17] MEDS: 0.9 % Sodium Chloride Flush 10 ML SYRINGE 5 ML IVFLUSH (08:55)
[2024-10-15 07:42] VITALS: BP 146/94; PULSE 67; RESP 16; TEMP 36.6; O2SAT 99
[2024-11-15 07:47] VITALS: BP 148/86; PULSE 76; RESP 18; TEMP 36.6; O2SAT 97
[2024-12-13 07:30] VITALS: BP 143/94; PULSE 77; RESP 20; TEMP 36.1; O2SAT 97
[2024-12-16 19:39] LABS: TS Negative Control Passed; TS Panel A 0; TS Panel B 3; TS Positive Control Passed; TSpotTB Negative (Negative)
[2025-01-06 11:13] LABS: Vedolizumab Antibody <9.8
[2025-01-10 07:10] VITALS: BP 134/96; PULSE 74; RESP 18; TEMP 36.7; O2SAT 98
[2025-02-07 07:22] VITALS: BP 136/96; PULSE 75; RESP 18; TEMP 36.9; O2SAT 98
[2025-03-07 08:17] VITALS: BP 124/82; PULSE 70; RESP 16; TEMP 36.9; O2SAT 98
[2025-04-04 08:03] VITALS: BP 140/82; PULSE 83; RESP 16; TEMP 36.7; O2SAT 98
[2025-05-02 07:42] VITALS: BP 143/87; PULSE 76; RESP 16; TEMP 37; O2SAT 100
== END 2025-06-03 09:55 | disposition home or self-care (01) ==
LOC: HO.INF 07:30
PROVIDERS: Visit Provider Internal Medicine Gastroenterology
DX: K57.90 Diverticulosis of intestine, part unspecified, without perforation or abscess without bleeding (principal)
CPT/HCPCS: 36415; 80280; 83520; 86481; 96365; J3380

== ENCOUNTER 2025-05-05 08:24 | Outpatient (REF) | payer OTHER, SELFPAY ==
--- NOTE | ~2025-05-05 | XR_ITS ---
EXAMINATION: XR THORACIC SPINE CLINICAL INFORMATION: M54.6 - Pain in thoracic spine COMPARISON: November 01, 2023. TECHNIQUE: 3 views of the thoracic spine were obtained. FINDINGS: Radiopaque material within the vertebral bodies of T7, T9 and T11 with stable 40% volume loss. Stable mild superior endplate compression deformity representing 30% volume loss at T4. No acute cortical disruption. No gross malalignment. Multiple vascular clips in the right upper abdomen epigastric region. XR/XR thoracic spine 2V IMPRESSION: Status post kyphoplasty/vertebroplasty at 3 vertebral bodies of the thoracic spine. No acute fracture or gross listhesis. Stable. Electronically signed by: To Lyon MD 05/05/2025 02:53 PM EDT
== END 2025-05-05 08:25 | disposition home or self-care (01) ==
LOC: HO.HMGCX 08:24
PROVIDERS: PCP Nurse Practitioner Family; Visit Provider Internal Medicine Gastroenterology
DX: Z00.01 Encounter for general adult medical examination with abnormal findings (principal); Z23 Encounter for immunization; E11.9 Type 2 diabetes mellitus without complications; M54.6 Pain in thoracic spine; B35.1 Tinea unguium; H61.23 Impacted cerumen, bilateral; C61 Malignant neoplasm of prostate; Z19.1 Hormone sensitive malignancy status; Z94.4 Liver transplant status; K74.60 Unspecified cirrhosis of liver; K52.9 Noninfective gastroenteritis and colitis, unspecified
CPT/HCPCS: 69209; 72070; 90471; 90677; 96127

== ENCOUNTER 2025-05-05 08:24 | Outpatient (AMB) | payer OTHER, SELFPAY ==
--- NOTE | 2025-05-05 08:37 | MHC.OFFVIS ---
Vital Signs 05/05/25 08:38 Height 5 ft 8 in Weight 262 lb 5.601 oz BMI 39.9 BP 132/76 Blood Pressure Location Lt brachial Position Sitting Pulse 85 Intake Visit Reasons: 6 month follow up Intake Note: Yaya presents in the office as a 6 month follow up. CC: Blood in the stool - states that he had a stool sample but he has not brought it in yet. Harder stools but no stomach pains along with it. He noticed once he was taken off the ursodiol. When he had a flare up of his colitis he was put on it to control. Vat Tender Required: No Allergies No Known Allergies [No Known Allergies*] Allergy (Verified 05/05/25 08:37) HPI HPI 6 month follow up: Details: 59 yr old m here for f/u RECAP: hx of PSC and liver cirrhosis, prior alcohol xs following [facility] for liver transplant evaluation. disease complicated by ascites and SBP in the past needing occasional therapeutic paracentesis also has UC managed with entyvio labs prior with severe vit A def not drinking alcohol (stopped 09/2020) or smoking. US 06/2022- minimal ascites, OTHER DATA: MRCP 2021: lymphadenopathy, cirrhosis, ascites, cholelithiasis, ahaustral colon MRCP 12/2020--PSc, cirrhosis, no liver masses, or lesions EGD 07/2020--varices EGD/Colonoscopy 09/2022- Endoscopy Findings: portal hypertensive gastropathy enteropathy small varices Colonoscopy Findings: polyp internal hemorrhoids diverticular disease features of chronic colitis and sequelae of healing Path: chronic mild inactive and active colitis on bx, no dysplasia, hyperplastic polyp I did w/u for worsening LFT ascitic fluid neg for SBP--only 1.9 L removed UA and culture pos for staph warneri--initially sent cipro due to pos UA but then sent bactrim once got confirmation on organism vedolizumab levels were v good HE finally had his liver transplant 06/2023-- repeat colonoscopy;01/17/24; chronic colitis and inflamamtion, lactoferrin elevated at 22 INTERIM: he has noted one month of blood on wiping stools no pain in abdomen appetite is good stools are normal, no mucous or pus--but does strain at toilet still getting entyvio has colonoscopy coming up 2 weeks hgb was nml, but LFT slightly high --going [place] [facility] [place]: GENERAL: The patient is alert, VITAL SIGNS:see workflow HEENT: normal sclerae, PERRLA, EOMI. Oropharynx clear. Moist mucous membranes. Conjunctivae appear well perfused. No thyroid mass. CHEST: Chest wall is nontender. HEART: Regular rate and rhythm without murmurs. LUNGS: Clear to auscultation bilaterally. ABDOMEN: Soft but distended, positive bowel sounds, nontender, no organomegaly.no flank tenderness--scar noted SKIN: No rash, no excessive bruising, petechiae, or purpura. NEUROLOGIC: Cranial nerves II-XII intact without motor/sensory deficit. 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-- s/p liver transplant, slight increase in LFT< being monitored 2/ UC--high risk for CRC, was taken off entyvio due to liver transplant, now ongoing inflammation on colonoscopy and lactoferrin rising--put back on entyvio 3/ rectal bleeding, stable HGB prob from hemorrhoids, but need to r/o active colitis PLAN: 1/ await colo 2/ [place]FT [place] [facility] [place] f/u 3/ advised on high fiber diet and increase fluid intake 5 glasses a day --can take metamucil BID [facility] Medical History Osteoporosis Ascites Hepatic encephalopathy Coagulopathy Advanced hepatic cirrhosis Fatty liver Alcohol abuse Hypoalbuminemia Ulcerative colitis Coagulopathy Anemia 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 Surgical History S/P kyphoplasty Liver transplanted Hx of colonoscopy History of esophagogastroduodenoscopy (EGD) Family History Sister History of liver cancer Father Substance use disorder Social History Household Members: Spouse Household Members Other:: 2 Housing: House Are you a primary chronic care nurse to a significant other at home: No Do you presently have visiting nurse or other home services: No Alcohol intake: never Comment: was medicated Patient Tobacco Use Status: Current someday Tobacco user Tobacco use type: Cigar e-Cigarette/Vaping Use: Never Used Second Hand Smoke Exposure: No Advance Directives Date on File: 12/31/21 service: No Current occupational status: disabled Cognitive needs: No Hearing needs: No Vision needs: No Physical Exam Vital Signs: Last Vital Signs Pulse 85 05/05/25 08:38 BP 132/76 05/05/25 08:38 BMI result Body Mass Index 39.9 Assessment & Plan Assessment & Plan (1) Advanced hepatic cirrhosis: Code(s): K74.60 - Unspecified cirrhosis of liver Category: Medical Plan: as above (2) IBD (inflammatory bowel disease): Code(s): K52.9 - Noninfective gastroenteritis and colitis, unspecified Category: Medical Plan: as above Coding Level of Care Code Est Pt Level 4 (70823) Diagnoses Advanced hepatic cirrhosis K74.60 IBD (inflammatory bowel disease) K52.9
[2025-05-05 08:38] VITALS: BP 132/76; PULSE 85; BMI 39.9
--- OUTSIDE RECORDS SUMMARY | 2025-05-05 08:44 | XMS_ITS | Patient Health Record ---
Author Organization [facility] Address [address] [place] [address] Care Team Providers Care Molder Apprentice Name Role Phone Manpreet Avila Primary Care [...] Active Naftifine HCl 2 % 1 application Qa Lead ally Once a day for 90 days [...] Coverage Start Date Coverage End Date [facility] [address] [place] [address] [phone] [id number] Yaya Howell Self - patient is the insured Medical (General) History Medical History History ICD Code cirrhosis anxiety + COVID 10/2021 COVID vaccinated X 3 Hospitalization History Reason Date(Month/Year) cirrhosis
== END 2025-05-05 09:19 | disposition home or self-care (01) ==
LOC: HO.HGI 08:25
PROVIDERS: PCP Nurse Practitioner Family; Visit Provider Internal Medicine Gastroenterology
DX: K74.60 Unspecified cirrhosis of liver (principal); K52.9 Noninfective gastroenteritis and colitis, unspecified
CPT/HCPCS: 99214

== ENCOUNTER 2025-05-05 13:04 | Outpatient (AMB) | payer OTHER, SELFPAY ==
--- NOTE | 2025-05-05 13:10 | MHC.PC.OV ---
Vital Signs 05/05/25 13:12 Height 5 ft 8 in Weight 266 lb BMI 40.4 BP 110/82 Blood Pressure Location Rt brachial Position Sitting Pulse 75 Pulse Source Pulse Oximeter Temp 97.7 F Temp Source Oral Pulse Oximetry (%) 95 Oxygen Delivery Method Room Air Intake Visit Reasons: PE Allergies No Known Allergies [No Known Allergies*] Allergy (Verified 05/05/25 13:12) Medication List - Last Reconciled 05/05/25 by CARLY HigueraP- alcohol swabs (Easy Touch Alcohol Prep Pads) pad topical BID aspirin 1 tab PO DAILY atorvastatin 20 mg PO BEDTIME blood sugar diagnostic (FreeStyle Lite Strips) As directed blood-glucose meter (FreeStyle Lite Meter kit) As directed blood-glucose sensor (Langhar G7 Sensor device) test blood sugar 4 times per day, change sensor every 10 days diazepam 2 mg PO BID PRN 1 day finasteride 5 mg PO DAILY 90 days insulin glargine (Lantus Solostar U-100 Insulin) 8 units (0.08 mL) subcut QPM lancets (FreeStyle Lancets) Test blood sugar three times per day magnesium oxide 800 mg PO TID mycophenolate mofetil 250 mg PO BID omeprazole 40 mg PO DAILY pen needle, diabetic Use daily to inject insulin pen needle, diabetic As directed semaglutide (Ozempic) 0.5 mg (0.736 mL) subcut QWEEK sertraline 25 mg PO DAILY tacrolimus 1 mg PO BID tamsulosin 0.4 mg PO BEDTIME 90 days Tobacco use date assessed: 05/05/25 Dental Screening Dental Screen Date: 05/05/25 Did you have a dental visit in the last 12 months?: No Did you have a dental problem in the last 6 months where you did not have access to dental care?: No Was dental information given to patient?: No HPI PE HPI Details History of Present Illness The patient is a 59-year-old male presenting for management of diabetes and associated complications. He has a history of diabetes mellitus with a recent HbA1c of 7.5%. The patient does not regularly monitor his blood glucose levels due to insurance issues with obtaining a continuous glucose monitor, although he can perform fingerstick glucose checks when necessary. The patient reports some diabetic neuropathy. Additionally, he has onychomycosis with elongated toenails, particularly affecting the first toenails. He has a history of a liver transplant and is under regular follow-up with a youth development professional locally and a transplant team at [facility]. The patient has reported blood in the stool, suspected to be due to hemorrhoids, and a repeat colonoscopy is planned, seeing GI. The patient is morbidly obese and denies any fevers, chills, blurred vision, chest pain, shortness of breath, abdominal pain, or urinary issues. pt sees a urologist for prostate (carcinoma) Hx of thoracic back compression Fx, kyphoplasty in the past. Pt is reporting increased back pain to his entire thoracic back region, will order a XR. Health Maintenance - Follow-up with youth development professional for liver transplant management and colonoscopy scheduling Social History Review of Systems - General: Denies fevers, chills - Neurological: Reports neuropathy - Dermatological: Reports onychomycosis - Cardiovascular: Denies chest pain - Respiratory: Denies shortness of breath - Gastrointestinal: Reports blood in stool, denies abdominal pain - Psychiatric: Denies suicidal or homicidal ideation Physical Exam General: Cooperative, healthy appearing, comfortable, no acute distress and well developed, morbidly obese Orientation: Patient oriented x3 Limitations: No limitations Head: Normal to inspection Ears: cerumen noted bilat, after ear lavage, TMs easily seen Nose: Normal external nose present Face and sinus: Normal facial exam Eyes: Appearance normal, both eyes and all related structures Neck: Normal visual inspection and Yes full ROM Respiratory: Normal respiratory effort and able to speak in complete sentences. Clear to auscultation bilaterally Cardiovascular: Regular rate and rhythm. Normal S1 and S2 GI: Normal to inspection. Soft to palpation and nontender. Skin: Onychomycosis noted with very elongated toenails, especially first toenails Neuro: Patient oriented x3. Positive incision use of monofilament bilaterally indicating neuropathy (onychomycosis noted bilat) Extremities: Normal to inspection. Morbidly obese, turning upper torso side to side, increased thoracic back pain (mid to lower) Results - Labs: HbA1c 7.5% Plan The management of the patient's diabetes mellitus involves addressing the insurance issue to facilitate the acquisition of a continuous glucose monitor, which will aid in better glycemic control. In the interim, the patient is encouraged to perform regular fingerstick glucose checks. For the diabetic neuropathy, a referral to a splicing machine operator automatic is planned to address the onychomycosis and elongated toenails, which may require specialized care. The patient will continue follow-up with his youth development professional for liver transplant management and to address the reported blood in stool, with a colonoscopy planned to investigate the cause, suspected to be hemorrhoids. Discussion Notes I discussed with the patient the importance of obtaining a continuous glucose monitor to improve diabetes management and the need for regular glucose monitoring in the meantime. We also talked about the referral to a splicing machine operator automatic for his foot care needs, particularly addressing the onychomycosis and elongated toenails. The patient was informed about the planned colonoscopy to investigate the cause of blood in the stool, which is suspected to be due to hemorrhoids. Patient Instructions - Monitor blood glucose levels regularly using fingerstick tests until a continuous glucose monitor is available. - Follow up with the splicing machine operator automatic for foot care, including treatment for onychomycosis. - Continue follow-up with the youth development professional for liver transplant management and to address gastrointestinal concerns. 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 Surgical History S/P kyphoplasty Liver transplanted Hx of colonoscopy History of esophagogastroduodenoscopy (EGD) Family History Sister History of liver cancer Father Substance use disorder Social History Household Members: Spouse Household Members Other:: 2 Housing: House Are you a primary foster care case manager to a significant other at home: No Do you presently have visiting nurse or other home services: No Alcohol intake: never Comment: was medicated Patient Tobacco Use Status: Current someday Tobacco user Tobacco use type: Cigar e-Cigarette/Vaping Use: Never Used Second Hand Smoke Exposure: No Advance Directives Date on File: 12/31/21 service: No Current occupational status: disabled Cognitive needs: No Hearing needs: No Vision needs: No Questionnaire PHQ-9 Over the last 2 weeks, how often have you been bothered by any of the following problems? 1. Little interest or pleasure in doing things: several days 2. Feeling down, depressed, or hopeless: several days 3. Trouble falling or staying asleep, or sleeping too much: several days 4. Feeling tired or having little energy: several days 5. Poor appetite or overeating: several days 6. Feeling bad about yourself - or that you are a failure or have let yourself or your family down: several days 7. Trouble concentrating on things, such as reading the newspaper or watching television: more than half the days 8. Moving or speaking so slowly that other people could have noticed. Or the opposite - being so fidgety or restless that you have been moving around a lot more than usual: not at all 9. Thoughts that you would be better off or of hurting yourself in some way: not at all Total score: 8 Depression Screening Interpretation: Negative Depression Screening Done: Yes 51867 - PHQ-9 Billing: Yes Source: Developed by Drs. Frantz Mora, Sophia Monroe, Elmer Calle and colleagues, with an educational nacho from [employer]. Thrive Questionnaire Date Thrive assessed: 05/05/25 I am a: Patient What is your living situation today?: I have a steady place to live Within the past 12 months, did the food you bought not last and you didn't have the money to get more?: Never true Within the past 12 months, did you worry whether your food would run out before you got money to buy more?: Never true Do you have trouble paying for medicines?: I choose not to answer this question Do you have trouble getting transportation to medical appointments?: No Do you have trouble paying your heating and electricity bill?: No Do you have trouble taking care of your child, family member or friend?: No Do you have trouble with day-to-day activities such as bathing, preparing meals, shopping, managing finances, etc.?: No Are you currently unemployed and looking for a job?: No Are you interested in more education?: I choose not to answer this question Please select the resources that you would like help with: None Currently or been in a relationship where the following occur: No concerns reported THRIVE Score: 0 AUDIT C Alcohol Use Questionnaire (AUDIT-C) 1. How often do you have a drink containing alcohol?: Never Total Score: 0 MARGE-7 AMB Questionnaire MARGE-7 Date MARGE - 7 assessed: 05/05/25 Feeling nervous, anxious, or on edge: 2 = More than half the days Not being able to stop or control worryin = More than half the days Worrying too much about different things: 2 = More than half the days Trouble relaxin = Several days Being so restless that it is hard to sit still: 1 = Several days Becoming easily annoyed or irritable: 1 = Several days Feeling afraid as if something awful might happen: 1 = Several days Total MARGE-7 score (0-4 normal; 5-9 mild; 10-14 moderate; 15-21 severe): 10 Source: Developed by Drs. Frantz Mora, Sophia Monroe, Elmer Calle and colleagues, with an educational nacho from [employer]. MARGE-7 Assessment Billing MARGE-7 Assessment Tool: MARGE-7 Assessment 17891 Physical exam (Primary Care) Vital Signs: Last Vital Signs Temp 97.7 F 05/05/25 13:12 Pulse 75 05/05/25 13:12 BP 110/82 05/05/25 13:12 Pulse Ox 95 05/05/25 13:12 Oxygen Delivery Method Room Air 05/05/25 13:12 BMI result Body Mass Index 40.4 Tobacco/Smoking Status: Tobacco use Status Tobacco use date assessed 05/05/25 05/05/25 13:18 Patient Tobacco Use Status Current someday Tobacco 05/05/25 13:12 Tobacco use type Cigar 05/05/25 13:12 e-Cigarette/Vaping Use Never Used 05/05/25 13:12 PHQ-9: PHQ-9 Score PHQ-9: Total score 8 05/05/25 13:29 Depression Screening Interpretation: Negative Thrive Assessment: Date of Thrive Assessment Date Thrive assessed 05/05/25 05/05/25 13:18 Currently or been in a relationship where the following occur: No concerns reported Office Procedures Cerumen Removal From which ear canal was the cerumen removed: bilateral Removal: irrigation Notes: patient tolerated procedure well, no complications and ear canal clear [id number] Irrigation/Lavage Immunizations pneumoc 20-juan carlos conj-dip cr(PF) 0.5 mL IM syringe Performing Provider: ANDREA Higuera Performing Location[facility] Administered by: Andres Mahoney CMA on 05/05/25 13:53 Dose Route Admin Location Dispensed Lot Number Expiration Date NDC Forwarder Operator 0.5 mL IM Right Deltoid 0.5 mL [id number] 02/06/26 4517-6353-90 WYETH/PFIZER VIS Given Date VIS Provided VIS Publication Date 05/05/25 Single Vaccine 25 Eligibility Eligibility Date Funding Source Not [facility] Eligible 05/05/25 Private Coding Level of Care Code Est Pt Level 3 (67939) Est Pt Prev Care 40-64y(23380) Diagnoses Diabetes E11.9 Encounter for routine adult physical exam with abnormal findings Z00.01 Thoracic back pain M54.6 Onychomycosis B35.1 Hormone sensitive prostate cancer C61; Z19.1 Compression fx, thoracic spine S22.000A Cerumen impaction H61.20 CPT Codes Office Procedure - CPT: 44112-Cga Irrigation/Lavage ([id number]) Additional Codes MARGE-7 Assessment Billing - MARGE-7 Assessment Tool: MARGE-7 Assessment 53955 ([id number]) PHQ-9 - 30808 - PHQ-9 Billing: Yes ([id number]) Assessment & Plan Assessment & Plan (1) Diabetes: Code(s): E11.9 - Type 2 diabetes mellitus without complications Category: Medical (2) Encounter for routine adult physical exam with abnormal findings: Code(s): Z00.01 - Encounter for general adult medical examination with abnormal findings Category: Medical (3) Thoracic back pain: Code(s): M54.6 - Pain in thoracic spine Category: Medical (4) Onychomycosis: Code(s): B35.1 - Tinea unguium Category: Medical (5) Hormone sensitive prostate cancer: Code(s): C61 - Malignant neoplasm of prostate; Z19.1 - Hormone sensitive malignancy status Category: Medical (6) Compression fx, thoracic spine: Code(s): S22.000A - Wedge compression fracture of unspecified thoracic vertebra, initial encounter for closed fracture Category: Medical (7) Cerumen impaction: Code(s): H61.20 - Impacted cerumen, unspecified ear Category: Medical Plan . Orders: Orders Complete Blood Count Auto Diff Today E11.9 - Type 2 diabetes mellitus without complications, Z00.01 - Encounter for general adult medical examination with abnormal findings UA CC w/rflx Micro + Cult Today E11.9 - Type 2 diabetes mellitus without complications, Z00.01 - Encounter for general adult medical examination with abnormal findings XR thoracic spine 2V Today M54.6 - Pain in thoracic spine Comprehensive [place]. Panel Fast Today E11.9 - Type 2 diabetes mellitus without complications, Z00.01 - Encounter for general adult medical examination with abnormal findings TSH reflex Free T4 Today E11.9 - Type 2 diabetes mellitus without complications, Z00.01 - Encounter for general adult medical examination with abnormal findings Lipid Panel Today E11.9 - Type 2 diabetes mellitus without complications, Z00.01 - Encounter for general adult medical examination with abnormal findings Hemoglobin A1c Today E11.9 - Type 2 diabetes mellitus without complications, Z00.01 - Encounter for general adult medical examination with abnormal findings Referrals Podiatry Referral B35.1 - Tinea unguium, E11.9 - Type 2 diabetes mellitus without complications
[2025-05-05 13:12] VITALS: BP 110/82; PULSE 75; TEMP 36.5; O2SAT 95; BMI 40.4
== END 2025-05-05 14:25 | disposition home or self-care (01) ==
LOC: HO.HMCC 13:05
PROVIDERS: PCP Nurse Practitioner Family; Visit Provider Nurse Practitioner Family
DX: Z00.01 Encounter for general adult medical examination with abnormal findings (principal); E11.9 Type 2 diabetes mellitus without complications; S22.000A Wedge compression fracture of unspecified thoracic vertebra, initial encounter for closed fracture; C61 Malignant neoplasm of prostate; M54.6 Pain in thoracic spine; B35.1 Tinea unguium; Z19.1 Hormone sensitive malignancy status; H61.23 Impacted cerumen, bilateral; Z23 Encounter for immunization

== ENCOUNTER → 2025-05-05 14:04 | Outpatient (BNV) | payer OTHER, SELFPAY | PROVIDERS: PCP Nurse Practitioner Family; Visit Provider Radiology Diagnostic Radiology | DX: M54.6 Pain in thoracic spine (principal) | CPT/HCPCS: 72070 ==

== ENCOUNTER 2025-05-07 07:52 | Outpatient (REF) | payer OTHER, SELFPAY ==
--- OUTSIDE RECORDS SUMMARY | 2025-05-07 07:59 | XMS_ITS | Patient Health Record ---
Author Organization [facility] Address [address] [place] [address] Care Team Providers Care Cancer Program Director Name Role Phone Manpreet Avila Primary Care [...] Active Naftifine HCl 2 % 1 application Media Technician ally Once a day for 90 days [...] Date [facility] [address] [facility] [address] [place] [phone] [id number] Yaya Howell Self - patient is the insured Medical (General) History Medical History History ICD Code cirrhosis anxiety + COVID 10/2021 COVID vaccinated X 3 Hospitalization History Reason Date(Month/Year) cirrhosis
[2025-05-14 23:19] LABS: Lactoferrin, Fecal, Quant. 168.64 mcg/mL (<7.25)
== END 2025-05-07 07:53 | disposition home or self-care (01) ==
LOC: HO.LNP 07:52
PROVIDERS: Visit Provider Internal Medicine Gastroenterology
DX: K52.9 Noninfective gastroenteritis and colitis, unspecified (principal); K51.50 Left sided colitis without complications
CPT/HCPCS: 83631

== ENCOUNTER 2025-05-21 10:00 | Day surgery (SDC) | payer OTHER, SELFPAY ==
--- OUTSIDE RECORDS SUMMARY | 2025-04-30 12:52 | XMS_ITS | Patient Health Record ---
Author Organization [facility] Address [address] [facility] [address] [place] [address] Care Team Providers Care Automation Control Integrator Name Role Phone Manpreet Avila Primary Care [...] Active Naftifine HCl 2 % 1 application Interior Block Wirer ally Once a day for 90 days [...] Insured Coverage Start Date Coverage End Date [facility] [address] [facility] [address] [place] [address] [id number] Yaya Howell Self - patient is the insured Medical (General) History Medical History History ICD Code cirrhosis anxiety + COVID 10/2021 COVID vaccinated X 3 Hospitalization History Reason Date(Month/Year) cirrhosis
--- NOTE | 2025-05-20 09:32 | HO.ANESPROP2 ---
Documented by User: Noemí Reid NP 05/20/25 09:35 HPI - Anesthesia Eval Consult details Narrative: 59yo M for Colonoscopy s/p liver transplant 06/2023. Hx ETOH with advanced cirrhosis and coagulopathy. Follows [facility] [place] [facility] [facility]. Anesthesia Pre-Procedure Meds Is the patient on any of the following meds?: GLP1/DPP4 PMFSH Active Problems Active Problems: All Active Problems Cerumen impaction (Acute) Thoracic back pain (Acute) Hormone sensitive prostate cancer (Acute) Incomplete emptying of bladder due to benign prostatic hyperplasia (Acute) Bladder outlet obstruction (Acute) Dyslipidemia (Acute) Elevated prostate specific antigen (PSA) (Acute) Nocturia (Acute) Onychomycosis (Acute) Encounter for routine adult physical exam with abnormal findings (Acute) Back pain (Acute) Diabetes (Acute) Lumbar back pain (Acute) Osteoporosis (Acute) Abnormal radionuclide bone scan (Acute) Hip fracture, left (Acute) Abnormal bone scan of thoracic spine (Acute) Compression fx, thoracic spine (Acute) HTN (hypertension) (Acute) Chronic lower back pain (Acute) UTI (urinary tract infection) (Acute) Ascites (Acute) IBD (inflammatory bowel disease) (Acute) Edema (Acute) Major depression, recurrent, chronic (Acute) Advanced hepatic cirrhosis (Acute) Overgrown toenails (Acute) Hepatorenal syndrome (Acute) Bacteremia due to Enterobacter species (Acute) Sepsis (Acute) Colitis (Acute) Acute sinusitis (Acute ~03/10/25) Cough (Acute) Elevated blood sugar level (Acute) Hypomagnesemia (Acute) Hepatic encephalopathy (Acute) Cholestatic pruritus (Acute) Physical exam (Acute) Screening PSA (prostate specific antigen) (Acute) Murmur, heart (Acute) Vegetarian (Acute) Hypoalbuminemia (Acute) Coagulopathy (Acute) 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 (Acute) Past Medical History Medical History Osteoporosis Ascites Hepatic encephalopathy Coagulopathy Advanced hepatic cirrhosis Fatty liver Alcohol abuse Hypoalbuminemia Ulcerative colitis Coagulopathy Anemia 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 Family History Family History Sister History of liver cancer Father Substance use disorder Family history of problems with anesthesia: No Surgical History Surgical History S/P kyphoplasty Liver transplanted Hx of colonoscopy History of esophagogastroduodenoscopy (EGD) History of Problems with Anesthesia: No Social History Social History Household Members: Spouse Household Members Other:: 2 Housing: House Are you a primary career technical education teacher to a significant other at home: No Do you presently have visiting nurse or other home services: No Alcohol intake: never Comment: was medicated Patient Tobacco Use Status: Current someday Tobacco user Tobacco use type: Cigar e-Cigarette/Vaping Use: Never Used Second Hand Smoke Exposure: No Use of substances other than those prescribed or required for medical reasons: No Have you been hit, kicked, punched, or otherwise hurt by someone within the past year? If so, by whom?: No Are you DNR?: No Advance Directives: No Advance Directives Information Provided: Yes Advance Directives Date on File: 12/31/21 Poor oral hygiene: No service: No Current occupational status: disabled Cognitive needs: No Hearing needs: No Vision needs: No Meds Allergies Allergy/AdvReac Type Severity Reaction Status Date / Time No Known Allergies (No Known Allergy Verified 05/21/25 10:31 Allergies*) Home Medications ?Medication ?Instructions ?Recorded ?Confirmed ?Last Taken ?Type aspirin 81 mg chewable tablet 1 tab PO DAILY 08/17/23 05/21/25 05/05/25 History magnesium oxide 400 mg (241.3 mg 800 mg PO TID 08/17/23 05/05/25 Unknown History magnesium) tablet omeprazole 40 mg capsule,delayed 40 mg PO DAILY 08/17/23 05/05/25 Unknown History release tacrolimus 1 mg capsule, 1 mg PO BID 08/17/23 05/05/25 Unknown History immediate-release alcohol swabs (Easy Touch Alcohol pad topical BID 08/18/23 05/05/25 Unknown History Prep Pads) blood sugar diagnostic (FreeStyle #10 ea 08/18/23 05/05/25 Unknown History Lite Strips) blood-glucose meter (FreeStyle #1 ea 08/18/23 05/05/25 Unknown History Lite Meter kit) mycophenolate mofetil 250 mg 250 mg PO BID 05/05/25 05/05/25 Unknown History capsule Exam Pertinent Lab Results Pertinent Lab Results: Laboratory Tests 04/28/25 11:46 WBC 4.1 L Hgb 15.0 Hct 45.0 Plt Count 277 Sodium 137 Potassium 4.5 Chloride 109 H Carbon Dioxide 20 L BUN 19 H Creatinine 1.29 Assessment and Plan Assessment Anesthesia Assessment: Chart Reviewed Final Anesthetic Review Family History of Problems with Anesthesia: No History of Problems with Anesthesia: No Documented by User: Aide Solis MD 05/21/25 11:36 PMFSH Past Medical History Medical History Osteoporosis Ascites Hepatic encephalopathy Coagulopathy Advanced hepatic cirrhosis Fatty liver Alcohol abuse Hypoalbuminemia Ulcerative colitis Coagulopathy Anemia 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 Family History Family History Sister History of liver cancer Father Substance use disorder Surgical History Surgical History S/P kyphoplasty Liver transplanted Hx of colonoscopy History of esophagogastroduodenoscopy (EGD) Social History Social History Household Members: Spouse Household Members Other:: 2 Housing: House Are you a primary career technical education teacher to a significant other at home: No Do you presently have visiting nurse or other home services: No Alcohol intake: never Comment: was medicated Patient Tobacco Use Status: Current someday Tobacco user Tobacco use type: Cigar e-Cigarette/Vaping Use: Never Used Second Hand Smoke Exposure: No Use of substances other than those prescribed or required for medical reasons: No Have you been hit, kicked, punched, or otherwise hurt by someone within the past year? If so, by whom?: No Are you DNR?: No Advance Directives: No Advance Directives Information Provided: Yes Advance Directives Date on File: 12/31/21 Poor oral hygiene: No service: No Current occupational status: disabled Cognitive needs: No Hearing needs: No Vision needs: No Meds Allergies Allergy/AdvReac Type Severity Reaction Status Date / Time No Known Allergies (No Known Allergy Verified 05/21/25 10:31 Allergies*) Home Medications ?Medication ?Instructions ?Recorded ?Confirmed ?Last Taken ?Type aspirin 81 mg chewable tablet 1 tab PO DAILY 08/17/23 05/21/25 05/05/25 History magnesium oxide 400 mg (241.3 mg 800 mg PO TID 08/17/23 05/05/25 Unknown History magnesium) tablet omeprazole 40 mg capsule,delayed 40 mg PO DAILY 08/17/23 05/05/25 Unknown History release tacrolimus 1 mg capsule, 1 mg PO BID 08/17/23 05/05/25 Unknown History immediate-release alcohol swabs (Easy Touch Alcohol pad topical BID 08/18/23 05/05/25 Unknown History Prep Pads) blood sugar diagnostic (FreeStyle #10 ea 08/18/23 05/05/25 Unknown History Lite Strips) blood-glucose meter (FreeStyle #1 ea 08/18/23 05/05/25 Unknown History Lite Meter kit) mycophenolate mofetil 250 mg 250 mg PO BID 05/05/25 05/05/25 Unknown History capsule Exam Airway Mallampati Class: III TM Dist: >3cm Neck ROM: Full Loose/Missing/Broken Teeth: Yes, Upper and Lower Heart: RRR Lungs: CTA Assessment and Plan Assessment Anesthesia Assessment: Anesthesia Plan Discussed Final Anesthetic Review NPO: Yes ASA Class: III Final Preanesthetic Review: Meds/Allgs Chart Reviewed, Consent Obtained/Reviewed and Anes Risks/Benef Reviewed Patient Risk: Intermediate Procedure Risk: Low Anesthetic Plan Anesthetic Plan: MAC: Disposition: Standard PACU
[2025-05-21 10:40] VITALS: BP 103/83; PULSE 85; RESP 18; TEMP 36.9; O2SAT 98; BMI 37.5
--- NOTE | 2025-05-21 10:49 | MHC.SHP ---
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) History of Previous Operations: Relevant previous surgery/procedure and date(s) ( S/P kyphoplasty Liver transplanted Hx of colonoscopy History of esophagogastroduodenoscopy (EGD)) Allergies: Allergies Allergy/AdvReac Type Severity Reaction Status Date / Time No Known Allergies (No Known Allergy Verified 05/21/25 10:31 Allergies*) Review of Systems Sugical H&P ROS: Negative: Constitution, Cardiovascular, Respiratory, Neurological, Psychiatric, Hem-Onc, Allergic/Immunologic, Gastrointestinal, Genitourinary, Musculoskeletal, Integumentary, Endocrine and Eyes/Ears/Nose/Throat Exam Surgical H&P Exam: Normal: HEENT, Normal: Heart, Normal: Lungs, Normal: Extremities, Normal: Abdomen, Normal: Skin and Normal: Neurological Plan Diagnosis/Plan: Unchanged I have reviewed the history and physical and performed a pertinent physical examination on my patient. No changes have occurred unless specified. Time Spent With Patient Time: Total time managing care of this patient today ____ minutes.
[2025-05-21 10:54] LABS: Glucose, Whole Blood 121 mg/dL (60-115)
--- NOTE | 2025-05-21 11:54 | HO.OPN-COLON ---
Colonoscopy Operative Note Operative Note Date of Service: 05/21/25 Narrative: Operative Information Procedure Description: Colonoscopy Indication: colitis Anesthesia: MAC COLONOSCOPY Instrument: Olympus variable stiffness pediatric scope 190L Colonoscopy Monitoring: Vital signs and clinical assessment, continuous EKG monitoring, Pulse oximetry, Carbon Dioxide monitoring and blood pressure monitoring were done throughout the procedure. Colon withdrawal time was 10 minutes. Procedure: The patient was placed in the left lateral decubitis position and pre-procedure medications were administered. After a digital rectal examination of the ano-rectum, the video colonoscope was inserted into the rectum and advanced through the colon to the cecum/TI. The colonoscope was slowly withdrawn in a retrograde panoramic fashion and the colon mucosa was carefully examined including a retroflexed view of the rectum. Findings and interventions are described below. Procedure Difficulty: easy Findings: Terminal Ileum-normal, bx taken Patchy severe erythema with ulcerations and microabscesses and mucosal edema. Bx taken from cecum, ascending, transverse, descending, sigmoid and rectum. bx also taken to r/o CMV colitis stool samples also sent for c diff, stool PCR panel Anorectum - normal Intervention: cold forceps Colon preparation: [place] Bowel Preparation Scale Right colon; 2 Transverse colon: 2 Left colon; 2 (0 = Unprepared colon segment with mucosa not seen due to solid stool that cannot be cleared. 1 = Portion of mucosa of the colon segment seen, but other areas of the colon segment not well seen due to staining, residual stool and/or opaque liquid. 2 = Minor amount of residual staining, small fragments of stool and/or opaque liquid, but mucosa of colon segment seen well. 3 = Entire mucosa of colon segment seen well with no residual staining, small fragments of stool or opaque liquid) Impression and Post Procedure Diagnosis: severe patchy colitis Plan: if stool and bx normal then change biologic and steroid course, might use mesalamine for short term Repeat Colonoscopy in 1 year or earlier if clinically indicated Above findings were reviewed with the patient and relevant handouts were provided if indicated.
[2025-05-21 11:58] VITALS: BP 94/67; PULSE 79; RESP 16; TEMP 36.2; O2SAT 99
[2025-05-21 12:13] VITALS: BP 106/76; PULSE 71; RESP 16; O2SAT 99
[2025-05-21 12:28] VITALS: BP 127/94; PULSE 73; RESP 16; TEMP 36.5; O2SAT 99
[2025-05-21 13:23] LABS: CDiff Gene PCR NEGATIVE (Negative)
[2025-05-21 15:16] LABS: E. coli EAEC Not Detected (Not Detect.); E. coli EPEC Detected (Not Detect.); E. coli ETEC Not Detected (Not Detect.); E. coli STEC Not Detected (Not Detect.); Shigella sp./EIEC Not Detected (Not Detect.)
[2025-05-28 23:02] LABS: Lactoferrin, Fecal, Quant. 79.05 mcg/mL (<7.25)
== END 2025-05-21 13:22 | disposition home or self-care (01) ==
PROVIDERS: PCP Nurse Practitioner Family; Visit Provider Internal Medicine Gastroenterology
PROC: 0DJD8ZZ Inspection of Lower Intestinal Tract, Via Natural or Artificial Opening Endoscopic (ICD-10-PCS; CPT 45378; principal; 2025-05-21 11:10)
DX: K52.89 Other specified noninfective gastroenteritis and colitis (principal); K52.9 Noninfective gastroenteritis and colitis, unspecified; K62.89 Other specified diseases of anus and rectum; K76.82 Hepatic encephalopathy; R18.8 Other ascites; D68.9 Coagulation defect, unspecified; K76.0 Fatty (change of) liver, not elsewhere classified; K74.60 Unspecified cirrhosis of liver; F10.10 Alcohol abuse, uncomplicated; Z94.4 Liver transplant status; D64.9 Anemia, unspecified; E88.09 Other disorders of plasma-protein metabolism, not elsewhere classified; M81.0 Age-related osteoporosis without current pathological fracture; Z72.0 Tobacco use
CPT/HCPCS: 45380; 82947; 83631; 87493; 87507; 88305; 88342; J2003; J2704

== ENCOUNTER → 2025-05-21 10:00 | Outpatient (BNV) | payer OTHER, SELFPAY | PROVIDERS: PCP Nurse Practitioner Family; Visit Provider Internal Medicine Gastroenterology | DX: K52.9 Noninfective gastroenteritis and colitis, unspecified (principal) | CPT/HCPCS: 45380 ==

== ENCOUNTER 2025-06-09 09:10 | Outpatient (REF) | payer OTHER, SELFPAY ==
--- OUTSIDE RECORDS SUMMARY | 2025-06-09 09:29 | XMS_ITS | Encounter Summary ---
Author Organization [facility] Address [address] [place] [address] Phone Care Team Providers Care Magneto Repairer Name Role Phone Manpreet Avila COIL WINDER HAND Primary Care Provider + Serina Peralta MD Unavailable Unavaila ble Encounter Details Date Type Department Care Team (Late st Contact Info) Description 01/01/2024 Procedure Pass [facility] [address] [facility], [address] [place] [address] Social History Tobacco Use Types Packs/Day Years Used Date Smoking Tobacco: Never Smokeless Tobacco: Never Alcohol Use Standard Drinks/Week Comments Not Currently 0 (1 standard drink = 0.6 oz pur e alcohol) Quit August 2020 Education Answer Date Recorded Are you interested in more education? Not on jesi e 03/17/2023 Are you concerned about learning? Not on file 03/17/2023 No 03/17/2023 No 03/17/2023 Digital Access Answer Date Recorded No 04/12/2023 No 04/12/2023 Reliable internet access at home? Not on file 04/12/2023 Device with a working camera? Not on file Sex and Gender Information Value Date Recorded Sex Assigned at Male 05/19/2021 9:32 AM EDT Legal Sex Male 11:49 AM EST Gender Identity Male 05/19/2021 9:32 AM EDT Sexual Orientation Straight 05/19/2021 9: 32 AM EDT documented as of this encounter Plan of Treatment Upcoming Encounters Date Type Department Care Team ([facility] st Contact Info) Description 06/30/2025 8:05 AM EDT Blood Draw [facility] [address] [address] Sepideh Cardenas MD [address] [place] [id number] [email or web address] 07/28/2025 8:05 AM EDT Blood Draw [facility] [address] [place] [address] Sepideh Cardenas MD [address] [place] [id number] [email or web address] 09/02/2025 8:00 AM EDT Blood Draw [facility] [address] [address] Sepideh Cardenas MD [address] [place] [id number] [email or web address] 09/29/2025 8:05 AM EST Blood Draw [facility] [address] [place] [address] Sepideh Cardenas MD [address] [place] [phone] [email or web address] 10/27/2025 8:00 AM EST Blood Draw [facility] [address] [address] Sepideh Cardenas MD [address] [place] [id number] [email or web address] 11/03/2025 9:40 AM EST Office Visit [facility] [address] [facility] [address] [place] [address] Sepideh Cardenas MD [address] [place] [address] [id number] [email or web address] Scheduled Procedures Name Priority Associated Diagnoses Date/Ti az ENDOSCOPIC RETROGRADE CHOLANGIOPANCREATOGRAPHY Encounter for pancreatic duct stent exchange documented as of this encounter Visit Diagnoses Not on filedocumented in this encounter Care Teams Magneto Repairer Relationship Specialty Start Date End Date Manpreet Avila NP [address] [place] [address] [email or web address] PCP - General Family Medicine 12/29/20 Serina Peralta MD Gastroenterology 04/06/22 documented as of this encounter Additional Source Comments The information contained in this document represents components of the legal health record. It is not the complete legal health record.[facility]
--- OUTSIDE RECORDS SUMMARY | 2025-06-09 09:29 | XMS_ITS | Clinical Summary ---
Author Organization [facility] Facility Address [address] [place] [address] Care Team Providers Care Facility Worker Name Role Phone Manpreet Avila NP Primary Care Provider [phone] Social History Tobacco Use Types Packs/Day Years [...] 2 - PCV) 03/08/2020 03/08/2019 Influenza Vaccine (#1) 2025 1, 09/13/2018, 08/18/2014, Additional history exists Pneumococcal Vaccine: Peds ( 0 to 5 Years) and At-Risk Patients (6 to 49 Years) Discontinued 03/08/2019 Insurance [facility] Care Teams Facility Worker Relationship Specialty Start Date End Date Manpreet Avila NP [address] [place] [address] PCP - General Nurse Practitioner 01/03/22
--- OUTSIDE RECORDS SUMMARY | 2025-06-09 09:29 | XMS_ITS | Data Portability ---
Author Organization [facility], [facility] Address [address] [place] [address] Care Team Providers Care Film Mounter Name Role Phone KENDAL TORRES Primary Care [...] DO Not Attach Compendium, Do Not Delete/merge, [id number] 12:50:28 Medication Orders None record ed. Patient TargetsNo targets recorded. Patient Instructions Encounter Date Encounter Id Patient Instructions Last Modified By Organization Details Last Modified Time 03/01/2018 [id number] HISTORY: Mr. Howell is a 52-year-old gentleman [...] images of the feet were obtained at [facility]. I have had a chance [...] complaints. [email or web address] Not available 03/05/2018 22:46:45 02/13/2019 [id number] Mr. Howell is a 53-year-old man seen [...] metatarsal heads an interdigital areas between the 2 4 toes right greater than left. Sensory [...] index (BMI) Body weight Heart rate Systolic And Diastolic Provider Name and Address Organization Details Last Updated DateTime 02/13/2019 175.26 cm 36.2 kg/m2 651991.1 3 g 67 /min 154/102 mm[Hg] Ana Garay [facility], [place] 9 09:20:53 Date Recorded Body height Body mass index (BMI) Body weight Heart rate Systolic And Diastolic Provider Name and Address Organization Details Last Updated DateTime 03/01/2018 175.26 cm 33.2 kg/m2 022459.2 8 g 77 /min 138/82 mm[Hg] Kendy Goodrich [facility], [place] 8 08:26:44 Social History Question Answer Notes LastModified by Organizat ion Details LastModified Time Tobacco Smoking Status Never Smoker Kendy pressley [facility], [place] 03/01/2018 08:32:50 Accident Related Injury No [email or web address] Information not available 03/01/2018 Auto Related Injury? No [email or web address] Information not available 03/01/2018 How Much Tobacco Do You Chew? None [email or web address] Information not available 03/01/2018 Live Alone Or With Others? With Others [email or web address] Information not available 03/01/2018 Represented By An Reading Specialist? No [email or web address] Information not available 03/01/2018 Marital Status [email or web address] Informat ion not available 03/01/2018 What Was The Date Of Your Most Recent Tobacco Screening? 02/13/2019 Information not available 06/13/2019 How Much Tobacco Do You Smoke? No [email or web address] Information not available 03/01/2018 Work Related Injury? No [email or web address] Information not available 03/01/2018 Sex: Unknown Functional Status Question Answer Note LastModified by Organization D etails LastModified Time What is your level of alcohol consumption? Moderate [email or web address] Information not available 03/01/2018 Mental Status None recorded. Family History Relationship Description Onset Age of this Age Resolved Age Notes LastModified by Organization Details LastModified Time Father No current problems or disability [email or web address] Not available 01/19 09:08:41 Mother No current problems or disability [email or web address] Not available 01/19 09:08:41 Medical History Condition Response HIV N High blood pressure Y Gout N Osteoarthritis N Claustrophobia N Cardiac Stents N Scoliosis N Thyroid disorder N MRSA N Rheumatoid arthritis N Blood clots N Depression N Currently ? N Bleeding tendency N Diabetes Type 2 N Sleep apnea, [...] SNOMED-CT Code Diagnosis ICD10 Code Diagnosis Note [id number] ARSH CAIN MD Main Office [address] [facility],[address] [place] [address] 03/01/2018 07:56:19 03/01/2018 08:57:54 Foot pain 31884080 M79.671 M79.672 Metatarsalgia 42014038 M 77.41 M77.42 [id number] Jeff Centeno MD [facility] [address] [facility] [address] [place] [address] 02/13/2019 08:13:32 02/13/2019 09:21:14 Foot pain 30771594 M79.671 M79.672 Idiopathic peripheral neuropathy 33770497 G60.8 Health Concerns Section Related Observation LastModified by Organization Detai ls LastModified Time None Recorded Concern Status LastModified by Organization Details LastModified Time None Recorded Advance Directives Directive None Recorded Payers Insurance Date Sequence Insurance Name Policy Number Policy Reynolds Covered Member ID Reynolds Member ID Guarantor Name 02/12/2019 1 MARBELLA [id number] Yaya Howell [id number] Yaya Howell Notes Date Note Type Note Provider Name and Address Organization Details Recorded Time 03/01/2018 text/html Foot/ToeReported bypatient.Location: bilateral Duration:1 years Timing:chronic Context:cannot identify Alleviating Factors:nothing helps ARSH CAIN MD [address] [facility],[address], [place], [address], [facility] C[facility]I Adorno 03/05/2018 22:46:54 02/13/2019 text/html Foot/ToeReported bypatient.Location: bilateral; plantar (Forefoot) Quality:throbbing; constant; worsening Severity:moderate Duration:date of onset: Approximately 2 years Timing:chronic Context:cannot identify Alleviating Factors:sitting; rest Aggravating Factors:standing; walking; weightbearing Previous Surgery:none Prior Imaging:x ray Previous Injections:none Previous PT:none Work Related:no Jeff pressley [place] [facility] [place] 02/13/2019 09:36:31
--- OUTSIDE RECORDS SUMMARY | 2025-06-09 09:29 | XMS_ITS | Patient Health Record ---
Author Organization [facility] Address [address] [facility] [address] [place] [address] Care Team Providers Care Legal Billing Coordinator Name Role Phone Manpreet Avila Primary Care [...] Active Naftifine HCl 2 % 1 application Lisw ally Once a day for 90 days [...] Start Date Coverage End Date [facility] [address] [facility] [address] [place] [address] [id number] Yaya Howell Self - patient is the insured Medical (General) History Medical History History ICD Code cirrhosis anxiety + COVID 10/2021 COVID vaccinated X 3 Hospitalization History Reason Date(Month/Year) cirrhosis
== END 2025-06-09 09:11 | disposition home or self-care (01) ==
LOC: HO.MRI 09:10
PROVIDERS: PCP Nurse Practitioner Family; Visit Provider Urology
DX: Z13.89 Encounter for screening for other disorder (principal)

== ENCOUNTER 2025-06-23 13:40 | Outpatient (AMB) | payer OTHER, SELFPAY ==
[2025-06-23 13:42] VITALS: BP 132/78; PULSE 90; TEMP 36.9; O2SAT 98; BMI 36.8
--- NOTE | 2025-06-23 13:42 | AM.OFFWIN_ITS ---
Intake Vital Signs 06/23/25 13:42 Height 5 ft 8 in Weight 242 lb BMI 36.8 BP 132/78 Blood Pressure Location Lt brachial Position Sitting Pulse 90 Pulse Source Pulse Oximeter Temp 98.4 F Temp Source Oral Pulse Oximetry (%) 98 Oxygen Delivery Method Room Air Intake Visit Reasons: EP Allergic reaction?? On new med, lip pain Patient Tobacco Use Status: Current someday Tobacco user Mechanical Facilities Technician Required: No Allergies No Known Allergies (No Known Allergies*) Allergy (Verified 05/21/25 10:31) Do you need a note to return to daycare/school/sports/work: Yes HPI HPI Comments History of Present Illness Details History - The patient is a 59-year-old male pres enting with a possible allergic reaction following an Entyvio infusion for ulcerative colitis. - Received increased Entyvio dose (1200 mg) 4 days ago - Developed lip swelling and burning sen sation by 3 days ago, is a little less than it was 4 days ago - No history of allergies or dietary lay nges. - Has been using Benadryl - no tingling in throat or difficulty br eathing Physical Exam General: Cooperative, healthy appearing, comfortable, no acute distress and well developed Orientation: Patient oriented x3 Limitations: No limitations Head: Normal to inspection Ears: Hearing grossly normal bilaterally Nose: Normal External nose present Face and sinus: Normal facial exam Mouth: Bottom lip with swelling, able to speak normally Eyes: Appearance normal, both eyes and all related structures Neck: Normal visual inspection and Yes full ROM Respiratory: Normal respiratory effort and able to speak in complete sentences. Skin: no rashes or lesions noted Neuro: Patient oriented x3 Extremities: moving all extremities normally PFSH Medical History Osteoporosis Ascites Hepatic encephalopathy Coagulopathy Advanced hepatic cirrhosis Fatty liver Alcohol abuse Hypoalbuminemia Ulcerative colitis Coagulopathy Anemia 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 Surgical History S/P kyphoplasty Liver transplanted Hx of colonoscopy History of esophagogastroduodenoscopy (EGD) Family History Sister History of liver cancer Father Substance use disorder Social History Household Members: Spouse Household Members Other:: 2 Housing: House Are you a primary healthcare social worker to a significant other at home: No Do you presently have visiting nurse or other home services: No Alcohol intake: never Comment: was medicated Patient Tobacco Use Status: Current someday Tobacco user Tobacco use type: Cigar e-Cigarette/Vaping Use: Never Used Second Hand Smoke Exposure: No Advance Directives Date on File: 12/31/21 service: No Current occupational status: disabled Cognitive needs: No Hearing needs: No Vision needs: No Review of Systems Const All systems reviewed & are unremarkable except as noted in HPI and below Physical Exam Vital Signs: Last Vital Signs Temp 98.4 F 06/23/25 13:42 Pulse 90 06/23/25 13:42 BP 132/78 06/23/25 13:42 Pulse Ox 98 06/23/25 13:42 Oxygen Delivery Method Room Air 06/23/25 13:42 BMI result Body Mass Index 36.8 Assessment & Plan Assessment & Plan (1) Allergic reaction: Code(s): T78.40XA - Allergy, unspecified, initial encounter Qualifiers: Encounter type: initial encounter Qualified Code(s): T78.40XA - Allergy, unspecified, initial encounter Plan: Plan Patient was informed and verbally consented to the use of an ambient scribe for clinic note documentation during this visit Possible Allergic Reaction To Entyvio Infusion - Start prednisone 40 mg daily for five days. - Continue Benadryl as needed, especially at night. - Avoid further Entyvio doses until evaluation by prescribing physician. - List Entyvio as potential allergy and inform prescribing physician. Medications: New prednisone 40 mg (2 x 20 mg) PO QAM 10 tabs 0RF Coding Level of Care Code Est Pt Level 3 (57227) Diagnoses Allergic reaction, initial encounter T78.40XA Encounter type: initial encounter
--- OUTSIDE RECORDS SUMMARY | 2025-06-23 13:50 | XMS_ITS | Clinical Summary ---
Author Organization [facility] Facility Address [address] [address] Care Team Providers Care Informatics Coordinator Name Role Phone Manpreet Avila NP Primary Care Provider [phone] Social History Tobacco Use Types Packs/Day Years [...] (6 to 49 Years) Discontinued 03/08/2019 Insurance [facility] Care Teams Informatics Coordinator Relationship Specialty Start Date End Date Manpreet Avila NP [address] [place] [address] PCP - General Nurse Practitioner 01/03/22
--- OUTSIDE RECORDS SUMMARY | 2025-06-23 13:50 | XMS_ITS | Patient Health Record ---
Author Organization [facility] Address [address] [facility] [address] [place] [address] Care Team Providers Care Professional Wrestler Name Role Phone Manpreet Avila Primary Care [...] Active Naftifine HCl 2 % 1 application Machining Engineer ally Once a day; Duration: 90 days 02/23/2023 Active Lialda 1.2 GM 2 tablets with a lyudmila l Orally Once a day Active Clotrimazole-Betamethasone 1-0.05 % 1 application to each foot Externally once a day; Duration: 30 days 02/15/2023 Active Plan Of Treatment No Information Insurance Providers Payer Name Payer Address Payer Phone Subscriber Number Group Number Insured Name Patient Relationship to Insured Coverage Start Date Coverage End Date [facility] [address] [place] [address] [id number] Yaya Howell Self - patient is the insured Medical (General) History Medical History History ICD Code cirrhosis anxiety + COVID 10/2021 COVID vaccinated X 3 Hospitalization History Reason Date(Month/Year) cirrhosis
--- OUTSIDE RECORDS SUMMARY | 2025-06-23 13:50 | XMS_ITS | Encounter Summary ---
Author Organization [facility] Address [address] [place] [phone] Phone Care Team Providers Care Rotary Engine Assembler Name Role Phone Manpreet Avila NP Primary Care Provider + Serina Peralta MD Unavailable [phone] Encounter Details Date Type Department Care Team (Late st Contact Info) Description 01/01/2024 Procedure Pass [facility] 4 ENDO DEPT 55 [facility], 4th [place] [address] Social History Tobacco Use Types Packs/Day Years [...] Upcoming Encounters Date Type Department Care Team (Late st Contact Info) Description 06/30/2025 8:05 AM EDT Blood Draw [facility] Transplant Clinic [address] [place] [address] Sepideh Cardenas MD [address] [place] [id number] [email or web address] 07/28/2025 8:05 AM EDT Blood Draw [facility] Transplant Clinic [address] [place] [address] Sepideh Cardenas MD [address] [place] [id number] [email or web address] 09/02/2025 8:00 AM EDT Blood Draw [facility] Transplant Clinic [address] [place] [address] Sepideh Cardenas MD [address] [place] [id number] [email or web address] 09/29/2025 8:05 AM EST Blood Draw [facility] Transplant Clinic [address] [place] [address] Sepideh Cardenas MD [address] [place] [id number] [email or web address] 10/27/2025 8:00 AM EST Blood Draw [facility] Transplant Clinic [address] [place] [address] Sepideh Cardenas MD [address] [place] [id number] [email or web address] 11/03/2025 9:40 AM EST Office Visit [facility] Transplant Clinic [address] [facility] [address] [place] [address] Sepideh Cardenas MD [address] [place] [address] [phone] [email or web address] Scheduled Procedures Name Priority Associated Diagnoses Date/Ti id ENDOSCOPIC RETROGRADE CHOLANGIOPANCREATOGRAPHY Encounter for pancreatic duct stent exchange documented as of this encounter Visit Diagnoses Not on filedocumented in this encounter Care Teams Rotary Engine Assembler Relationship Specialty Start Date End Date Manpreet Avila NP [address] [facility] [address] [place] [address] [email or web address] PCP - General Family Medicine 12/29/20 Serina Peralta MD [address] [place] [address] Dr [address] [place] [address] Gastroenterology 04/06/22 documented as of this encounter Additional Source Comments The information contained in this document represents components of the legal health record. It is not the complete legal health record.[facility]
== END 2025-06-23 14:14 | disposition home or self-care (01) ==
PROVIDERS: PCP Nurse Practitioner Family; Visit Provider Physician Assistant
DX: T78.40XA Allergy, unspecified, initial encounter (principal)

== ENCOUNTER 2025-07-16 08:00 | Outpatient (RCR) | payer OTHER, SELFPAY ==
[2025-06-18 08:09] VITALS: BP 116/69; PULSE 85; RESP 18; TEMP 36.6; O2SAT 99
[2025-06-18] MEDS: RISANKIZUMAB RZAA IV (08:44)
[2025-06-18] MEDS: DEXTROSE 5% IV (08:44)
[2025-06-18 09:55] VITALS: BP 107/73; PULSE 76; RESP 16
[2025-06-18 10:47] VITALS: BP 111/77; PULSE 69
--- NOTE | 2025-07-16 08:07 | HO.INF ---
pt aox4. skin wpd. rr even/unlabored. speaks in clear full sentences. pt was asked how his first infusion of skyrizi went and his reply raised concerns for delayed infusion reaction. he states the reaction was not immediate but later that night his lips began to feel itchy and became very swollen, also complained of body hives. dr darling was contacted regarding these complaints and states pt is being switched to stelara. we at the infusion center were not aware of this switch in medication. pharmacy does not have stelara on hand. pt to be rescheduled for stelara.
== END 2025-07-16 08:13 | disposition home or self-care (01) ==
LOC: HO.INF 08:00
PROVIDERS: Visit Provider Internal Medicine Gastroenterology
DX: K52.9 Noninfective gastroenteritis and colitis, unspecified (principal)
CPT/HCPCS: 96365; 96366; J2327

== ENCOUNTER 2025-07-16 08:38 | Outpatient (AMB) | payer OTHER, SELFPAY ==
--- OUTSIDE RECORDS SUMMARY | 2025-07-16 08:58 | XMS_ITS | Patient Health Record ---
Author Organization [facility] Address [address] [facility] [address] [place] [address] Care Team Providers Care Organic Chemist Name Role Phone Manpreet Avila Primary Care [...] Active Naftifine HCl 2 % 1 application Public Services Assistant ally Once a day; Duration: 90 days [...] Coverage Start Date Coverage End Date [facility] 1 [facility] [address] [place] [address] [id number] Yaya Howell Self - patient is the insured Medical (General) History Medical History History ICD Code cirrhosis anxiety + COVID 10/2021 COVID vaccinated X 3 Hospitalization History Reason Date(Month/Year) cirrhosis
--- OUTSIDE RECORDS SUMMARY | 2025-07-16 08:58 | XMS_ITS | Encounter Summary ---
Author Organization [facility] Address [address] [place] [address] Phone Care Team Providers Care Website/Blog Editor Name Role Phone Manpreet Avila NP Primary Care Provider + Serina Peralta MD Unavailable [phone] Encounter Details Date Type Department Care Team (Late st Contact Info) Description 01/01/2024 Procedure Pass [facility] [address] [facility], 4th [place] [address] Social History Tobacco Use Types Packs/Day Years [...] Upcoming Encounters Date Type Department Care Team (Latest Contact Info) Description 07/28/2025 8:05 AM EDT Blood Draw [facility] [address] [address] Sepideh Cardenas MD [address] [place] [phone] [email or web address] 08/21/2025 7:30 AM EDT Pre-Admission Testing [facility] Pre-Procedure Evaluation Department Please [place] [address] Sancho Thakur MD [address] [place] [phone] [email or web address] 09/02/2025 8:00 AM EDT Blood Draw [facility] [address] [place] [address] Sepideh Cardenas MD [address] [place] [phone] [email or web address] 09/04/2025 Procedure Pass [facility] [address] [facility], 4th [place] [address] 09/04/2025 8:00 AM EDT Hospital Encounter [facility] [address] [facility], 4th [place] [address] Sancho Thakur MD [address] [place] [phone] [email or web address] 09/04/2025 8:00 AM EDT - 09/04/2025 9:30 AM EDT Surgery [facility] [address] [facility], 4th [place] [address] Sancho Thakur MD [address] [place] [phone] [email or web address] ENDOSCOPIC RETROGRADE CHOLANGIOPANCREATOGRAPHY 09/29/2025 8:05 AM EST Blood Draw [facility] [address] [address] Sepideh Cardenas MD [address] [place] [phone] [email or web address] 10/27/2025 8:00 AM EST Blood Draw [facility] [address] [address] Sepideh Cardenas MD [address] [place] [phone] [email or web address] 11/03/2025 9:40 AM EST Office Visit [facility] [address] [address] Sepideh Cardenas MD [address] [place] [phone] [email or web address] Scheduled Procedures Name Priority Associated Diagnoses Date/Ti vt ENDOSCOPIC RETROGRADE CHOLANGIOPANCREATOGRAPHY Encounter for pancreatic duct stent exchange 09/04/2025 8:00 AM EDT documented as of this encounter Visit Diagnoses Not on filedocumented in this encounter Care Teams Website/Blog Editor Relationship Specialty Start Date End Date Manpreet Avila NP [address] [place] [address] PCP - General Family Medicine 12/29/20 Serina Peralta MD [address] [place] [address] [address] [place] [address] Gastroenterology 04/06/22 documented as of this encounter Additional Source Comments The information contained in this document represents components of the legal health record. It is not the complete legal health record.[facility]
--- OUTSIDE RECORDS SUMMARY | 2025-07-16 08:58 | XMS_ITS | Encounter Summary ---
Author Organization [facility] Address [address] [place] [address] Phone Care Team Providers Care Manager Community Relations Name Role Phone Manpreet Avila NP Primary Care Provider + Serina Peralta MD Unavailable [phone] Encounter Details Date Type Department Care Team (Late st Contact Info) Description 12/31/2024 Procedure Pass [facility] 4 ENDO DEPT 55 [facility], 4th [place] [address] Social History Tobacco Use Types Packs/Day Years Used Date Smoking Tobacco: Former Cigars Smokeless Tobacco: Never Comments:Quit smoking cigars 2 weeks ago. Only does it sporadically Alcohol Use Standard Drinks/Week Comments Not Currently [...] with a working camera? Not on file Intimate Partner Violence Answer Date R ecorded Are you denied basic needs s uch as food, clothing, or medical care? No 12/31/2024 In the past 12 months have y ou been in a relationship with a person who hurts, threatens, or tries to control you? No 12/31/2024 Are you denied basic needs s uch as food, clothing, or medical care? No 12/31/2024 In the past 12 months have y ou been in a relationship with a person who hurts, threatens, or tries to control you? No 12/31/2024 Sex and Gender Information Value Date Recorded Sex Assigned at Male 05/19/2021 9:32 AM EDT Legal Sex Male 11:49 AM EST Gender Identity Male 05/19/2021 9:32 AM EDT Sexual Orientation Straight 05/19/2021 9: 32 AM EDT documented as of this encounter Plan of Treatment Upcoming Encounters Date Type Department Care Team (Latest Contact Info) Description 07/28/2025 8:05 AM EDT Blood Draw [facility] [address] [address] Sepideh Cardenas MD [address] [place] [phone] [email or web address] 08/21/2025 7:30 AM EDT Pre-Admission Testing [facility] Pre-Procedure Evaluation Department [place] [address] Sancho Thakur MD [address] [place] [phone] [email or web address] 09/02/2025 8:00 AM EDT Blood Draw [facility] [address] [address] Sepideh Cardenas MD [address] [place] [phone] [email or web address] 09/04/2025 Procedure Pass [facility] 4 ENDO DEPT [address] [facility], 4th [place] [address] 09/04/2025 8:00 AM EDT Hospital Encounter [facility] 4 ENDO DEPT [address] [facility], [address] [place] [address] Sancho Thakur MD [address] [facility] 5 [place] [address] [email or web address] 09/04/2025 8:00 AM EDT - 09/04/2025 9:30 AM EDT Surgery [facility] 4 ENDO DEPT [address] [facility], [address]th [place] [address] Sancho Thakur MD [address] [address] [email or web address] ENDOSCOPIC RETROGRADE CHOLANGIOPANCREATOGRAPHY 09/29/2025 8:05 AM EST Blood Draw [facility] Trans[facility] Clinic [address] [place] [address] Sepideh Cardenas MD [address] [place] [phone] [email or web address] 10/27/2025 8:00 AM EST Blood Draw [facility] [address] [place] [address] Sepideh Cardenas MD [address] [place] [phone] [email or web address] 11/03/2025 9:40 AM EST Office Visit [facility] Trans[facility] [address] [place] [address] Sepideh Cardenas MD [address] [place] [phone] [email or web address] Scheduled Procedures Name Priority Associated Diagnoses Date/Ti pa ENDOSCOPIC RETROGRADE CHOLANGIOPANCREATOGRAPHY Encounter for pancreatic duct stent exchange 09/04/2025 8:00 AM EDT documented as of this encounter Visit Diagnoses Not on filedocumented in this encounter Care Teams Manager Community Relations Relationship Specialty Start Date End Date Manpreet Avila NP [address] [place] [address] [place] [address] PCP - General Family Medicine 12/29/20 Serina Peralta MD [address] [place] [address] [place] [address] Gastroenterology 04/06/22 documented as of this encounter Additional Source Comments The information contained in this document represents components of the legal health record. It is not the complete legal health record.[facility]
--- OUTSIDE RECORDS SUMMARY | 2025-07-16 08:58 | XMS_ITS | Encounter Summary ---
Author Organization [facility] Address [address] [place] [address] Phone Care Team Providers Care Answering Service Operator Name Role Phone Manpreet Avila NP Primary Care Provider + Serina Peralta MD Unavailable [phone] Encounter Details Date Type Department Care Team (Late st Contact Info) Description 07/10/2025 Orders Only [facility] Transplant Clinic [address] [place] [address] Sepideh Cardenas MD [address] [place] [phone] [email or web address] Social History Tobacco Use Types Packs/Day Years [...] as food, clothing, or medical care? No 05/29/2025 In the past 12 months have y ou been in a relationship with a person who hurts, threatens, or tries to control you? No 05/29/2025 Are you denied basic needs s uch as food, clothing, or medical care? No 05/29/2025 In the past 12 months have y ou been in a relationship with a person who hurts, threatens, or tries to control you? No 05/29/2025 Sex and Gender Information Value Date Recorded Sex Assigned at Male 05/19/2021 9:32 AM EDT Legal Sex Male 11:49 AM EST Gender Identity Male 05/19/2021 9:32 AM EDT Sexual Orientation Straight 05/19/2021 9: 32 AM EDT documented as of this encounter Plan of Treatment Upcoming Encounters Date Type Department Care Team (Latest Contact Info) Description 07/28/2025 8:05 AM EDT Blood Draw [facility] Transplant Clinic [address] [place] [address] Sepideh Cardenas MD [address] [place] [address] [email or web address] 08/21/2025 7:30 AM EDT Pre-Admission Testing [facility] Pre-Procedure Evaluation Department Please [place] [address] Sancho Thakur MD [address] [place] [phone] [email or web address] 09/02/2025 8:00 AM EDT Blood Draw [facility] Transplant [facility] [address] [address] Sepideh Cardenas MD [address] [place] [address] [email or web address] 09/04/2025 Procedure Pass [facility] NOR[facility] 4 ENDO DEPT [address] [facility], [address]th [place] [address] 09/04/2025 8:00 AM EDT Hospital Encounter [facility] 4 ENDO DEPT [address] [facility], [address]th [place] [address] Sancho Thakur MD [address] [facility] 5 [place] [address] [email or web address] 09/04/2025 8:00 AM EDT - 09/04/2025 9:30 AM EDT Surgery [facility] 4 ENDO DEPT [address] [facility], [address]th [place] [address] Sancho Thakur MD [address] [address] [email or web address] ENDOSCOPIC RETROGRADE CHOLANGIOPANCREATOGRAPHY 09/29/2025 8:05 AM EST Blood Draw [facility] Transplant Clinic [address] [place] [address] Sepideh Cardenas MD [address] [place] [address] [email or web address] 10/27/2025 8:00 AM EST Blood Draw [facility] Transplant [facility] [address] [address] Sepideh Cardenas MD [address] [address] [email or web address] 11/03/2025 9:40 AM EST Office Visit [facility] Transplant [facility] [address] [address] Sepideh Cardenas MD [address] [place] [address] [phone] [place] [address] [email or web address] Scheduled Procedures Name Priority Associated Diagnoses Date/Ti mi ENDOSCOPIC RETROGRADE CHOLANGIOPANCREATOGRAPHY Encounter for pancreatic duct stent exchange 09/04/2025 8:00 AM EDT documented as of this encounter Procedures Procedure Name Priority Date/Time Associated Diagnosis Comments COMPREHENSIVE METABOLIC PANEL Routine 07/10/2025 8:24 AM EDT TACROLIMUS LEVEL Routine 07/10/2025 8:24 AM EDT CBC AND DIFFERENTIAL Routine 07/10/2025 8:24 AM EDT PHOSPHORUS Routine 07/10/2025 8:24 AM EDT MAGNESIUM Routine 07/10/2025 8:24 AM EDT BILIRUBIN, DIRECT Routine 07/10/2025 8:2 4 AM EDT documented in this encounter Results * (ABNORMAL) Comprehensive metabolic panel (07/10/2025 8:24 AM EDT) Glucose 116(H) 65 - 99 mg/dL [facility] Comment: Fasting reference interval For someone without known diabetes, a glucose value between 100 and 125 mg/dL is consistent with prediabetes and should be confirmed with a follow-up test. Urea Nitrogen (BUN) 14 7 - 25 mg/dL [facility] Creatinine 1.25 0.70 - 1.30 mg/dL [facility] EGFR 67 > OR = 60 mL/min/1. 73m2 [facility] BUN/Creatinine Ratio SEE NOTE: (calc) [facility] Comment: Not Reported: BUN and Creatinine are within reference range. Sodium 137 135 - 146 mmol/L [facility] Potassium 4.3 3.5 - 5.3 mmol/L [facility] Chloride 108 98 - 110 mmol/L [facility] [place] [facility] Carbon Dioxide 23 20 - 32 mmol/L [facility] [place] [facility] Calcium 8.6 8.6 - 10.3 mg/dL [facility] [place] [facility] Protein, Total 6.9 6.1 - 8.1 g/dL [facility] [place] [facility] Albumin 3.8 3.6 - 5.1 g/dL [facility] [place] [facility] Globulin 3.1 1.9 - 3.7 g/dL (calc) [facility] [place] [facility] Albumin/Globuli n Ratio 1.2 1.0 - 2.5 (calc) [facility] [place] [facility] Bilirubin, Total 0.5 0.2 - 1.2 mg/dL [facility] [place] [facility] Alkaline Phosphatase 275(H) 35 - 144 U/L [facility] [place] [facility] AST 60(H) 10 - 35 U/L [facility] [place] [facility] ALT 67(H) 9 - 46 U/L [facility] [place] [facility] 07/10/2025 8:24 AM EDT 07/10/2025 8:25 AM EDT Narrative [facility] 07/11/2025 1:31 AM EDT FASTING:YES FASTING: YES Sepideh Cardenas MD LAB BLOOD ORDERABLES Final Resul t [facility] [address] [address] [phone] [facility] [place] [facility] [address] [place] [phone] * Phosphorus (07/10/2025 8:24 AM EDT) Phosphate ( Phosphorus) 3.0 2.5 - 4.5 mg/dL [facility] [place] [facility] 07/10/2025 8:24 AM EDT 07/10/2025 8:25 AM EDT Narrative [facility] 07/11/2025 1:31 AM EDT FASTING:YES FASTING: YES Result Preet Cardenas MD LAB BLOOD ORDERABLES Final Resul t Performing Organization Address [facility]/ZIP Co de Phone Number [facility] [address] [address], [facility] [phone] [facility] [place] [employer] [employer] [address] [place] [address] * Magnesium (07/10/2025 8:24 AM EDT) Magnesium 1.9 1.5 - 2.5 mg/dL [facility] [place] [employer] 07/10/2025 8:24 AM EDT 07/10/2025 8:25 AM EDT Narrative [facility] - 07/11/2025 1:31 AM EDT FASTING:YES FASTING: YES us Sepideh Cardenas MD LAB BLOOD ORDERABLES Final Resul t Performing Organization Address [place] de Phone Number [facility] [address],[place] [address], [facility] [phone] [facility] [place] [employer] [employer] [address] [place] [address] * Bilirubin, direct (07/10/2025 8:24 AM EDT) Bilirubin, direct 0.1 < OR = 0.2 mg/dL [facility] [place] [employer] 07/10/2025 8:24 AM EDT 07/10/2025 8:25 AM EDT Narrative [facility] - 07/11/2025 1:31 AM EDT FASTING:YES FASTING: YES Result Preet Cardenas MD LAB BLOOD ORDERABLES Final Resul t Performing Organization Address [facility] Co de Phone Number [facility] [address],[place] [address], [facility] [phone] [facility] [place] [employer] [address] [place] [address] * (ABNORMAL) Tacrolimus level (07/10/2025 8:24 AM EDT) Tacrolimus 2.8(L) mcg/L [facility] [place] [employer] Comment: No definitive therapeutic or toxic ranges have been established. Optimal blood drug levels are influenced by type of transplant, patient response, time post- transplant, co-administration of other drugs, and drug formulation. The following trough range is a suggested guideline: 5.0-20.0 mcg/L. This test was developed and its analytical performance characteristics have been determined by [facility] It has not been cleared or approved by the FDA. This assay has been validated pursuant to the CLIA regulations and is used for clinical purposes. 07/10/2025 8:24 AM EDT 07/10/2025 8:25 AM EDT Narrative [facility] - 07/11/2025 1:31 AM EDT FASTING:YES FASTING: YES Sepideh Cardenas MD LAB BLOOD ORDERABLES Final Resul t [facility] [address],[facility] [place] [address] [phone] [facility] [place] [employer] [address] [place] [phone] * (ABNORMAL) CBC and differential (07/10/2025 8:24 AM EDT) WBC 3.4(L) 3.8 - 10.8 Thousand/ uL [facility] [place] [employer] Red Blood Cell 4.71 4.20 - 5.80 Million/u L [facility] [place] [employer] Hemoglobin 13.6 13.2 - 17.1 g/dL [facility] [place] [employer] Hematocrit 43.8 38.5 - 50.0 % [facility] [place] [employer] MCV 93.0 80.0 - 100.0 fL [facility] [place] [employer] MCH 28.9 27.0 - 33.0 pg [facility] [place] [employer] MCHC 31.1(L) 32.0 - 36.0 g/dL [facility] [place] [employer] [employer] Comment: For adults, a slight decrease in the calculated MCHC value (in the range of 30 to 32 g/dL) is most likely not clinically significant; however, it should be interpreted with caution in correlation with other red cell parameters and the patient's clinical condition. RDW 13.1 11.0 - 15.0 % [facility] [place] [facility] Platelet Count 286 140 - 400 Thousand/ uL [facility] [place] [facility] MPV 9.3 7.5 - 12.5 fL [facility] [place] [facility] Absolute Neutrophils 1,669 1,500 - 7,800 cells/uL [facility] [place] [facility] Absolute Lymphocytes 1,125 850 - 3,900 cells/uL [facility] [place] [facility] Absolute Monocytes 425 200 - 950 cells/uL [facility] [place] [facility] Absolute Eosinophils 150 15 - 500 cells/uL [facility] [place] [facility] Absolute Basophils 31 0 - 200 cells/uL [facility] [place] [facility] Neutrophils 49.1 % [facility] [place] [facility] Lymphocytes 33.1 % [facility] [place] [facility] Monocytes 12.5 % [facility] Di[facility] [place] [facility] Eosinophils 4.4 % [facility] [place] [facility] Basophils 0.9 % [facility] [place] [facility] 07/10/2025 8:24 AM EDT 07/10/2025 8:25 AM EDT Narrative [facility] [place] [facility] - 07/11/2025 1:31 AM EDT FASTING:YES FASTING: YES Sepideh Cardenas MD LAB BLOOD ORDERABLES Final Resul t [employer] [address] [place] [address],[place] [address], [facility] [phone] [facility] [place] [employer] [address] [place] [phone] documented in this encounter Visit Diagnoses Not on filedocumented in this encounter Care Teams Answering Service Operator Relationship Specialty Start Date End Date Manpreet Avila NP [address] [facility] [place] [address] PCP - General Family Medicine 12/29/20 Serina Peralta MD [address] [place] [address] Dr [address] [address] Gastroenterology 04/06/22 documented as of this encounter Additional Source Comments The information contained in this document represents components of the legal health record. It is not the complete legal health record.[facility]
--- OUTSIDE RECORDS SUMMARY | 2025-07-16 08:58 | XMS_ITS | Encounter Summary ---
Author Organization [facility] Address [address] [place] [address] [address] [place] [address] Phone Care Team Providers Care Refinery Operator Helper Cracking Unit Name Role Phone Manpreet Avila NP Primary Care Provider + Serina Peralta MD Unavailable [phone] Reason for Visit * Reason Comments Medication Refill Encounter Details Date Type Department Care Team (Late st Contact Info) Description 02/23/[address] Floor, [address] [place] [address] Rachel Combs, FUEL BUYER [address] [place] [address] [email or web address] Medication Refill Social History Tobacco Use Types Packs/Day Years [...] Description 07/28/2025 8:05 AM EDT Blood Draw [facility] Transplant Clinic [address] [address] Sepideh Cardenas MD [address] [place] [address] [email or web address] 08/21/2025 7:30 AM EDT Pre-Admission Testing [facility] [place] Pre-Procedure Evaluation Department [place] [address] Sancho Thakur MD [facility] [address] [address] [email or web address] 09/02/2025 8:00 AM EDT Blood Draw [facility] [place] Transplant Clinic [address] [place] [address] Sepideh Cardenas MD [address] [place] [phone] [email or web address] 09/04/2025 Procedure Pass [facility] [place] 4 ENDO DEPT [address] [facility], 4th [place] [address] 09/04/2025 8:00 AM EDT Hospital Encounter [facility] [place] NOR[facility] 4 ENDO DEPT [address] [facility], [address]th [place] [address] Sancho Thakur MD [facility] [address] [address] [email or web address] 09/04/2025 8:00 AM EDT - 09/04/2025 9:30 AM EDT Surgery [facility] [place] [facility] 4 ENDO DEPT 55 [facility], 4th [place] [address] Sancho Thakur MD [address] [address] [email or web address] ENDOSCOPIC RETROGRADE CHOLANGIOPANCREATOGRAPHY 09/29/2025 8:05 AM EST Blood Draw [facility] [place] Transplant Clinic [address] [address] Sepideh Cardenas MD [address] [place] [phone] [email or web address] 10/27/2025 8:00 AM EST Blood Draw [facility] [place] Transplant Clinic [address] [address] Sepideh Cardenas MD [address] [place] [phone] [email or web address] 11/03/2025 9:40 AM EST Office Visit [facility] [place] Transplant Clinic [address] [address] Sepideh Cardenas MD [address] [place] [phone] [email or web address] Scheduled Procedures Name Priority Associated Diagnoses Date/Ti tx ENDOSCOPIC RETROGRADE CHOLANGIOPANCREATOGRAPHY Encounter for pancreatic duct stent exchange 09/04/2025 8:00 AM EDT documented as of this encounter Visit Diagnoses Not on filedocumented in this encounter Care Teams Refinery Operator Helper Cracking Unit Relationship Specialty Start Date End Date Manpreet Avila NP [address] [place] [address] [place] [address] PCP - General Family Medicine 12/29/20 Serina Peralta MD [address] [place] [address] [place] [address] Gastroenterology 04/06/22 documented as of this encounter Additional Source Comments The information contained in this document represents components of the legal health record. It is not the complete legal health record.[facility]
--- OUTSIDE RECORDS SUMMARY | 2025-07-16 08:59 | XMS_ITS | Encounter Summary ---
Author Organization [facility] Address [address] [place] [address] Phone Care Team Providers Care Monorail Hooker Name Role Phone Manpreet Avila NP Primary Care Provider + Serina Peralta MD Unavailable [phone] Encounter Details Date Type Department Care Team (Late st Contact Info) Description 04/25/2023 Transcribe Orders [facility] Laboratory [address] [place] [address] Rosario Adame PA-C [address] [place] [address] [email or web address] Social History Tobacco Use Types Packs/Day Years [...] Description 07/28/2025 8:05 AM EDT Blood Draw [facility] Trans[facility] [address] [address] Sepideh Cardenas MD [address] [email or web address] 08/21/2025 7:30 AM EDT Pre-Admission Testing [facility] Pre-Procedure Evaluation Department [place] [address] Sancho Thakur MD [address] [place] [phone] [email or web address] 09/02/2025 8:00 AM EDT Blood Draw [facility] Trans[facility] Clinic [address] [place] [address] Sepideh Cardenas MD [address] [place] [phone] [email or web address] 09/04/2025 Procedure Pass [facility] 4 ENDO DEPT [address] [facility], 4th [place] [address] 09/04/2025 8:00 AM EDT Hospital Encounter [facility] NOR[facility] 4 ENDO DEPT [address] [facility], 4th [place] [address] Sancho Thakur MD [facility] [address] [address] [email or web address] 09/04/2025 8:00 AM EDT - 09/04/2025 9:30 AM EDT Surgery [facility] NOR[facility] 4 ENDO DEPT [address] [place] [address], 4th [place] [address] Sancho Thakur MD [address] [place] [phone] [email or web address] ENDOSCOPIC RETROGRADE CHOLANGIOPANCREATOGRAPHY 09/29/2025 8:05 AM EST Blood Draw [facility] Trans[facility] [address] [place] [address] Sepideh Cardenas MD [address] [place] [phone] [email or web address] 10/27/2025 8:00 AM EST Blood Draw [facility] Trans[facility] [address] [address] Sepideh Cardenas MD [address] [place] [phone] [email or web address] 11/03/2025 9:40 AM EST Office Visit [facility] Transplant [address] [address] Sepideh Cardenas MD [address] [place] [phone] [email or web address] Scheduled Procedures Name Priority Associated Diagnoses Date/Ti ar ENDOSCOPIC RETROGRADE CHOLANGIOPANCREATOGRAPHY Encounter for pancreatic duct stent exchange 09/04/2025 8:00 AM EDT documented as of this encounter Visit Diagnoses Not on filedocumented in this encounter Additional Health Concerns Infection Onset Date Last Indicated Resolved Time CoV-Exposed Comment:Removed via automated background process based on negative test result 07/20/2023 07/20/2023 07/25/2023 8:33 PM E DT CoV-Exposed Comment:Patient exposed to a COVID-19 positive close contact during hospitalization at [facility] ([facility]) on 07/30/2023. See infection control note dated 08/01/2023 for more information (this is posted as a documentation encounter which can be found under Chart Review>Encounters). 07/30/2023 08/01/2023 08/10/2023 1:22 AM E DT COVID-19 11/30/2023 11/30/2023 12/21/2023 1:25 AM EST documented as of this encounter Care Teams Monorail Hooker Relationship Specialty Start Date End Date Manpreet Avila NP [facility] [place] [address] PCP - General Family Medicine 12/29/20 Serina Peralta MD [address] [place] [address] Dr [address] [place] [place] [address] Gastroenterology 04/06/22 documented as of this encounter Additional Source Comments The information contained in this document represents components of the legal health record. It is not the complete legal health record.[facility]
--- OUTSIDE RECORDS SUMMARY | 2025-07-16 08:59 | XMS_ITS | Encounter Summary ---
Author Organization [facility] Address [address] [place] [address] Phone Care Team Providers Care Liturgical Music Director Name Role Phone Manpreet Avila NP Primary Care Provider + Serina Peralta MD Unavailable [phone] Encounter Details Date Type Department Care Team (Late st Contact Info) Description 06/22/2023 Ancillary Orders [facility] [address] [facility] 9th [place] [address] Edgar Rodriguez MD [address] [address] [email or web address] Social History Tobacco Use Types Packs/Day Years [...] Description 07/28/2025 8:05 AM EDT Blood Draw [facility] [address] [address] Sepideh Cardenas MD [address] [place] [address] [email or web address] 08/21/2025 7:30 AM EDT Pre-Admission Testing [facility] Pre-Procedure Evaluation Department Please [place] [address] Sancho Thakur MD Fruit [address] [address] [email or web address] 09/02/2025 8:00 AM EDT Blood Draw [facility] [address] [place] [address] Sepideh Cardenas MD [address] [place] [address] RAFA@[facility] 09/04/2025 Procedure Pass [facility] NORMA 4 ENDO DEPT 55 Fruit [facility], 4th [place] [address] 09/04/2025 8:00 AM EDT Hospital Encounter [facility] NORMA 4 ENDO DEPT 55 Fruit [facility], 4th [place] [address] Sancho Thakur MD Fruit [address] [address] [email or web address] 09/04/2025 8:00 AM EDT - 09/04/2025 9:30 AM EDT Surgery [facility] NORMA 4 ENDO DEPT [address] [place] [address], 4th [place] [address] Sancho Thakur MD [address] [place] [address] [email or web address] ENDOSCOPIC RETROGRADE CHOLANGIOPANCREATOGRAPHY 09/29/2025 8:05 AM EST Blood Draw [facility] [address] [place] [address] Sepideh Cardenas MD [address] [place] [address] RAFA@[facility] 10/27/2025 8:00 AM EST Blood Draw [facility] [address] [address] Sepideh Cardenas MD [address] [place] [address] RAFA@[facility] 11/03/2025 9:40 AM EST Office Visit [facility] Transplant [address] [address] Sepideh Cardenas MD [address] [place] [address] [email or web address] Scheduled Procedures Name Priority Associated Diagnoses Date/Ti mn ENDOSCOPIC RETROGRADE CHOLANGIOPANCREATOGRAPHY Encounter for pancreatic duct stent exchange 09/04/2025 8:00 AM EDT documented as of this encounter Visit Diagnoses Not on filedocumented in this encounter Additional Health Concerns Infection Onset Date Last Indicated Resolved Time CoV-Exposed Comment:Removed via automated background process based on negative test result 07/20/2023 07/20/2023 07/25/2023 8:33 PM EDT CoV-Exposed Comment:Patient exposed to a COVID-19 positive close contact during hospitalization at [facility] (H) on 07/30/2023. See infection control note dated 08/01/2023 for more information (this is posted as a documentation encounter which can be found under Chart Review>Encounters). 07/30/2023 08/01/2023 08/10/2023 1:22 AM E DT COVID-19 11/30/2023 11/30/2023 12/21/2023 1:25 AM EST documented as of this encounter Care Teams Liturgical Music Director Relationship Specialty Start Date End Date Manpreet Avila NP [facility] [place] [address] PCP - General Family Medicine 12/29/20 Serina Peralta MD [address] [place] [address] Dr [address] [place] [place] [address] Gastroenterology 04/06/22 documented as of this encounter Additional Source Comments The information contained in this document represents components of the legal health record. It is not the complete legal health record.[facility]
--- OUTSIDE RECORDS SUMMARY | 2025-07-16 08:59 | XMS_ITS | Clinical Summary ---
Author Organization [facility] Facility Address [address] [place] [address] Care Team Providers Care Cashier Credit Name Role Phone Manpreet Avila NP Primary Care Provider [phone] Social History Tobacco Use Types Packs/Day Years [...] (6 to 49 Years) Discontinued 03/08/2019 Insurance [facility] Care Teams Cashier Credit Relationship Specialty Start Date End Date Manpreet Avila NP [address] [place] [address] PCP - General Nurse Practitioner 01/03/22
--- OUTSIDE RECORDS SUMMARY | 2025-07-16 08:59 | XMS_ITS | Encounter Summary ---
Author Organization [facility] Address [address] [place] [address] [address] [place] [address] Phone Care Team Providers Care Livestock Farmer Name Role Phone Manpreet Avila NP Primary Care Provider + Serina Peralta MD Unavailable [phone] Encounter Details Date Type Department Care Team (Late st Contact Info) Description 07/18/2023 Procedure Pass [facility] CT, Colt 2 55 [address] [facility], 2nd Floor, [address] [place] [address] Social History Tobacco Use Types Packs/Day Years [...] AM EDT documented as of this encounter Functional Status * Calculated C-SSRS Risk Score (Lifetime/Recent) Answer Date of Assessment Author No Risk Indicated 07/18/2023 6:02 PM EDT Alma Marie RN * Henry Suicide Severity Rating Scale (Screener/Recent Self-Report) Question Answer Date of Assessment Author 1. Wish to be (Past 1 Month) No 07/18/2023 6:02 PM EDT Alma Marie RN 2. Non-Specific Active Suici flavio Thoughts (Past 1 Month) No 07/18/2023 6:02 PM EDT Ritesh Marie RN 6. Suicidal Behavior (Lifetime) No 6:02 PM EDT Alma Marie RN documented as of this encounter Plan of Treatment Upcoming Encounters Date Type Department Care Team (Latest Contact Info) Description 07/28/2025 8:05 AM EDT Blood Draw [facility] Transplant Clinic [address] [place] [address] Sepideh Cardenas MD [address] [place] [address] [email or web address]@[email or web address] 08/21/2025 7:30 AM EDT Pre-Admission Testing [facility] Pre-Procedure Evaluation Department Please [place] [address] Sancho Thakur MD [address] [place] [address] [email or web address] 09/02/2025 8:00 AM EDT Blood Draw [facility] [address] [address] Sepideh Cardenas MD [address] [place] [address] [email or web address]@[email or web address] 09/04/2025 Procedure Pass [facility] COLT 4 ENDO DEPT 55 [address] [facility], 4th [place] [address] 09/04/2025 8:00 AM EDT Hospital Encounter [facility] COLT 4 ENDO DEPT 55 [address] [facility], 4th [place] [address] Sancho Thakur MD 55 [address] [facility] 5 [place] [address] [email or web address] 09/04/2025 8:00 AM EDT - 09/04/2025 9:30 AM EDT Surgery [facility] COLT 4 ENDO DEPT 55 [address] [facility], 4th [place] [address] Sancho Thakur MD 55 [address] [facility] 5 [place] [address] [email or web address] ENDOSCOPIC RETROGRADE CHOLANGIOPANCREATOGRAPHY 09/29/2025 8:05 AM EST Blood Draw [facility] Transplant Clinic [address] [place] [address] Sepideh Cardenas MD [address] [place] [address] [email or web address]@[email or web address] 10/27/2025 8:00 AM EST Blood Draw [facility] [address] [address] Sepideh Cardenas MD [address] [address] [email or web address]@[email or web address] 11/03/2025 9:40 AM EST Office Visit [facility] Trans[facility] Clinic [address] [place] [address] Sepideh Cardenas MD [address] [address] [email or web address] Scheduled Procedures Name Priority Associated Diagnoses Date/Ti ms ENDOSCOPIC RETROGRADE CHOLANGIOPANCREATOGRAPHY Encounter for pancreatic duct [...] COVID-19 positive close contact during hospitalization at [facility] (H) on 07/30/2023. See infection control note dated 08/01/2023 for more information (this is posted as a documentation encounter which can be found under Chart Review>Encounters). 07/30/2023 08/01/2023 08/10/2023 1:22 AM E DT COVID-19 11/30/2023 11/30/2023 12/21/2023 1:25 AM EST documented as of this encounter Care Teams Livestock Farmer Relationship Specialty Start Date End Date Manpreet Avila NP [facility] [place] [address] PCP - General Family Medicine 12/29/20 Serina Peralta MD [address] [place] [address] [place] [address] Gastroenterology 04/06/22 documented as of this encounter Additional Source Comments The information contained in this document represents components of the legal health record. It is not the complete legal health record.[facility]
--- OUTSIDE RECORDS SUMMARY | 2025-07-16 08:59 | XMS_ITS | Encounter Summary ---
Author Organization [facility] Address [address] [place] [address] [address] [place] [address] Phone Care Team Providers Care Rn Acute Name Role Phone aMnpreet Avila NP Primary Care Provider + Serina Peralta MD Unavailable [phone] Encounter Details Date Type Department Care Team (Late st Contact Info) Description 07/20/2023 Procedure Pass [facility] [place], Colt 2 55 Fruit [facility], 2nd Floor, [address] [place] [address] Social History Tobacco Use Types Packs/Day Years [...] Description 07/28/2025 8:05 AM EDT Blood Draw [facility] [address] [address] Sepideh Cardenas MD [address] [place] [address] [email or web address]@[email or web address] 08/21/2025 7:30 AM EDT Pre-Admission Testing [facility] Pre-Procedure Evaluation Department Please [place] [address] Sancho Thakur MD [address] [place] [address] [email or web address] 09/02/2025 8:00 AM EDT Blood Draw [facility] [address] [place] [address] Sepideh Cardenas MD [address] [place] [address] [email or web address]@[email or web address] 09/04/2025 Procedure Pass [facility] COLT 4 ENDO DEPT 55 [facility], 4th [place] [address] 09/04/2025 8:00 AM EDT Hospital Encounter [facility] COLT 4 ENDO DEPT 55 [facility], 4th [place] [address] Sancho Thakur MD [address] [place] [address] [email or web address] 09/04/2025 8:00 AM EDT - 09/04/2025 9:30 AM EDT Surgery [facility] COLT 4 ENDO DEPT 55 [facility], 4th [place] [address] Sancho Thakur MD [address] [address] [email or web address] ENDOSCOPIC RETROGRADE CHOLANGIOPANCREATOGRAPHY 09/29/2025 8:05 AM EST Blood Draw [facility] [address] [address] Sepideh Cardenas MD [address] [place] [address] [email or web address]@[email or web address] 10/27/2025 8:00 AM EST Blood Draw [facility] [address] [place] [address] Sepideh Cardenas MD [address] [place] [address] [email or web address]@[email or web address] 11/03/2025 9:40 AM EST Office Visit [facility] [address] [place] [address] Sepideh Cardenas MD [address] [place] [address] [email or web address] Scheduled Procedures Name Priority Associated Diagnoses Date/Ti nc ENDOSCOPIC RETROGRADE CHOLANGIOPANCREATOGRAPHY Encounter for pancreatic duct [...] COVID-19 positive close contact during hospitalization at [facility] ([place]) on 07/30/2023. See infection control note dated 08/01/2023 for more information (this is posted as a documentation encounter which can be found under Chart Review>Encounters). 07/30/2023 08/01/2023 08/10/2023 1:22 AM E DT COVID-19 11/30/2023 11/30/2023 12/21/2023 1:25 AM EST documented as of this encounter Care Teams Rn Acute Relationship Specialty Start Date End Date Manpreet Avila NP [facility] [place] [address] PCP - General Family Medicine 12/29/20 Serina Peralta MD [address] [place] [address] [place] [address] Gastroenterology 04/06/22 documented as of this encounter Additional Source Comments The information contained in this document represents components of the legal health record. It is not the complete legal health record.[facility]
--- OUTSIDE RECORDS SUMMARY | 2025-07-16 08:59 | XMS_ITS ---
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 Alcoholic Cirrhosis Donor Information Organ ABO Source Meets Risk Criteria HLA Match Mismatches Cross Match Liver Transplanted O DCD No A: B: DR: Liver Donor Serology Results Anti-CMV CMV IgG: Negative CMV IgM: Not Done EBV IgG EBV VCA IgG: Positive Anti-HBcAb HBC Total: Negative Anti-HIV I/II HIV-1: Not Done HIV-2: Not Done HIV Ab: Negative HIV Ag/Ab Combo Assay: Not Done Anti-HTLV I/II HTLV: Not Done RPR/VDRL RPR: Negative HBsAb HBsAb: Not Done EBNA EBNA IgG: Not Done Anti-HCV HCV Ab: Negative HCV RNA: Not Done HBsAg HBsAg: Negative HBV DNA HBV DNA: Not Done EBV IgM EBV VCA IgM: Negative Toxoplasma Toxoplasma IgG: Negative Toxoplasma IgM: Not Done Anti-Teta nus No results on file Varicella Zoster No results on file Measles No results on file Mumps No results on file Quantiferon TB No results on file HSV 1 No results on file HSV 2 No results on file HSV RNA No results on file EBV (historical) No results on file HCV YULY HCV RNA: Not Done HCV YULY: Negative HIV YULY HIV YULY: Negative HBV YULY HBV DNA: Not Done HBV YULY: Negative SARS CoV-2 SARS CoV-2 RNA: Negative Care Team Name Role Phone Fax Email Rica Rouse RN Liver Coordinator N/A N/A N/A Rosario Adame PA-C Physician Music Composition Teacher [phone] [email or web address] stephanie Rodriguez MD Transplant Medical Physician [phone] [email or web address] Ramonita Watson [facility] Garment Form Assembler [phone] [email or web address] Sepideh Cardenas MD Post-Transplant Physician Transplant Surgeon [phone] [email or web address] Crystal Chen, TETON Dietitian [phone] N/A [email or web address] Carissa Nguyen, WOOD MILLING MACHINE HAND Nurse Practitioner [phone] [email or web address] Piper Caceres Mural Artist N/A N/A N/A Serina Peralta MD Referring Physician [phone] N/A Events Post-Transplant Pre-Transplant Admitted: 07/18/2023 Referred: 02/16/2021 Transplanted: 07/19/2023 Evaluation began: 1 Discharged: 07/31/2023 Committee: 06/02/2021 Center waitlisted: 1 Appointments (06/15/2025 - 08/16/2025) When With Visit Type Description 06/30/2025 Transplant Blood Check Late Post Transp lant No Show 07/10/2025 Transplant Blood Check Urg No Show 07/28/2025 Transplant Blood Check Late Post Transplant
--- OUTSIDE RECORDS SUMMARY | 2025-07-16 08:59 | XMS_ITS | Encounter Summary ---
Author Organization [facility] Address [address] [place] [address] Phone Care Team Providers Care Metal Control Worker Name Role Phone Manpreet Avila NP Primary Care Provider + Serina Peralta MD Unavailable [phone] Encounter Details Date Type Department Care Team (Late st Contact Info) Description 07/19/2023 Procedure Pass [facility] US [address] [place] [address] Social History Tobacco Use Types Packs/Day Years [...] Description 07/28/2025 8:05 AM EDT Blood Draw [facility] [address] [address] Sepideh Cardenas MD [address] [address] [email or web address] 08/21/2025 7:30 AM EDT Pre-Admission Testing [facility] Pre-Procedure Evaluation Department [place] [address] Sancho Thakur MD [address] [place] [address] [email or web address] 09/02/2025 8:00 AM EDT Blood Draw [facility] [address] [address] Sepideh Cardenas MD [address] [place] [address] RAFA@[email or web address] 09/04/2025 Procedure Pass [facility] NORMA 4 ENDO DEPT 55 [address] [facility], 4th [place] [address] 09/04/2025 8:00 AM EDT Hospital Encounter [facility] NORMA 4 ENDO DEPT 55 [address] [facility], 4th [place] [address] Sancho Thakur MD 55 [address] [facility] 5 [place] [address] [email or web address] 09/04/2025 8:00 AM EDT - 09/04/2025 9:30 AM EDT Surgery [facility] NORMA 4 ENDO DEPT 55 [address] [facility], 4th [place] [address] Sancho Thakur MD [address] [place] [address] [email or web address] ENDOSCOPIC RETROGRADE CHOLANGIOPANCREATOGRAPHY 09/29/2025 8:05 AM EST Blood Draw [facility] [address] [place] [address] Sepideh Cardenas MD [address] [place] [address] RAFA@[email or web address] 10/27/2025 8:00 AM EST Blood Draw [facility] [address] [place] [address] Sepideh Cardenas MD [address] [place] [address] RAFA@[facility] 11/03/2025 9:40 AM EST Office Visit [facility] [address] [place] [address] Sepideh Cardenas MD [address] [place] [address] RAFA@[email or web address] Scheduled Procedures Name Priority Associated Diagnoses Date/Ti nm ENDOSCOPIC RETROGRADE CHOLANGIOPANCREATOGRAPHY Encounter for pancreatic duct [...] COVID-19 positive close contact during hospitalization at [facility] (H) on 07/30/2023. See infection control note dated 08/01/2023 for more information (this is posted as a documentation encounter which can be found under Chart Review>Encounters). 07/30/2023 08/01/2023 08/10/2023 1:22 AM E DT COVID-19 11/30/2023 11/30/2023 12/21/2023 1:25 AM EST documented as of this encounter Care Teams Metal Control Worker Relationship Specialty Start Date End Date Manpreet Avila NP [address] [place] [address] [place] [address] PCP - General Family Medicine 12/29/20 Serina Peralta MD [address] [place] [address] [place] [address] Gastroenterology 04/06/22 documented as of this encounter Additional Source Comments The information contained in this document represents components of the legal health record. It is not the complete legal health record.[facility]
--- OUTSIDE RECORDS SUMMARY | 2025-07-16 08:59 | XMS_ITS | Encounter Summary ---
Author Organization [facility] Address [address] [place] [address] Phone Care Team Providers Care Dye Range Operator Cloth Name Role Phone Manpreet Avila NP Primary Care Provider + Serina Peralta MD Unavailable [phone] Encounter Details Date Type Department Care Team (Late st Contact Info) Description 06/07/2023 Procedure Pass [address] [place] [address] Social History Tobacco Use Types Packs/Day Years [...] Description 07/28/2025 8:05 AM EDT Blood Draw [facility] [address] [address] Sepideh Cardenas MD [address] [place] [address] [email or web address] 08/21/2025 7:30 AM EDT Pre-Admission Testing [facility] Pre-Procedure Evaluation Department Please [place] [address] Sancho Thakur MD [address] [place] [address] [email or web address] 09/02/2025 8:00 AM EDT Blood Draw [facility] Trans[facility] [address] [address] Sepideh Cardenas MD [address] [place] [address] [email or web address] 09/04/2025 Procedure Pass [facility] NORMA 4 ENDO DEPT 55 [facility], 4th [place] [address] 09/04/2025 8:00 AM EDT Hospital Encounter [facility] NORMA 4 ENDO DEPT 55 [facility], 4th [place] [address] Sancho Thakur MD [address] [place] [address] [email or web address] 09/04/2025 8:00 AM EDT - 09/04/2025 9:30 AM EDT Surgery [facility] NORMA 4 ENDO DEPT 55 [facility], 4th [place] [address] Sancho Thakur MD [address] [place] [address] [email or web address] ENDOSCOPIC RETROGRADE CHOLANGIOPANCREATOGRAPHY 09/29/2025 8:05 AM EST Blood Draw [facility] [address] [address] Sepideh Cardenas MD [address] [place] [address] [email or web address] 10/27/2025 8:00 AM EST Blood Draw [facility] Trans[facility] Clinic [address] [place] [address] Sepideh Cardenas MD [address] [place] [address] [email or web address] 11/03/2025 9:40 AM EST Office Visit [facility] Trans[facility] Clinic [address] [place] [address] Sepideh Cardenas MD [address] [place] [address] [email or web address] Scheduled Procedures Name Priority Associated Diagnoses [...] COVID-19 positive close contact during hospitalization at [facility] (H) on 07/30/2023. See infection control note dated 08/01/2023 for more information (this is posted as a documentation encounter which can be found under Chart Review>Encounters). 07/30/2023 08/01/2023 08/10/2023 1:22 AM E DT COVID-19 11/30/2023 11/30/2023 12/21/2023 1:25 AM EST documented as of this encounter Care Teams Dye Range Operator Cloth Relationship Specialty Start Date End Date Manpreet Avila NP [facility] [place] [address] PCP - General Family Medicine 12/29/20 Serina Peralta MD [address] [place] [address] [place] [address] Gastroenterology 04/06/22 documented as of this encounter Additional Source Comments The information contained in this document represents components of the legal health record. It is not the complete legal health record.[facility]
--- OUTSIDE RECORDS SUMMARY | 2025-07-16 08:59 | XMS_ITS | Encounter Summary ---
Author Organization [facility] Address [address] [place] [phone] Phone Care Team Providers Care Index Clerk Name Role Phone Manpreet Avila NP Primary Care Provider + Serina Peralta MD Unavailable [phone] Encounter Details Date Type Department Care Team (Late st Contact Info) Description 06/22/2023 Ancillary Orders [facility] Imaging [address] [place] [address] Edgar Rodriguez MD 55 [facility] [address] [place] [address] [email or web address] Abnormal finding on imaging Social History Tobacco Use Types Packs/Day Years [...] Description 07/28/2025 8:05 AM EDT Blood Draw [facility] Transplant Clinic [address] [phone] Sepideh Cardenas MD [address] [email or web address] 08/21/2025 7:30 AM EDT Pre-Admission Testing [facility] Pre-Procedure Evaluation Department Please [place] [address] Sancho Thakur MD [address] [address] [email or web address] 09/02/2025 8:00 AM EDT Blood Draw [facility] Trans[facility] Clinic [address] [place] [address] Sepideh Cardenas MD [address] [place] [phone] [email or web address] 09/04/2025 Procedure Pass [facility] NORMA 4 ENDO DEPT 55 [facility], 4th [place] [address] 09/04/2025 8:00 AM EDT Hospital Encounter [facility] 4 ENDO DEPT 55 [facility], 4th [place] [address] Sancho Thakur MD [address] [address] [email or web address] 09/04/2025 8:00 AM EDT - 09/04/2025 9:30 AM EDT Surgery [facility] 4 ENDO DEPT [address] [place] [address], 4th [place] [address] Sancho Thakur MD [address] [place] [phone] [email or web address] ENDOSCOPIC RETROGRADE CHOLANGIOPANCREATOGRAPHY 09/29/2025 8:05 AM EST Blood Draw [facility] Trans[facility] Clinic [address] [place] [address] Sepideh Cardenas MD [address] [place] [phone] [email or web address] 10/27/2025 8:00 AM EST Blood Draw [facility] [address] [address] Sepideh Cardenas MD [address] [place] [phone] [email or web address] 11/03/2025 9:40 AM EST Office Visit [facility] Transplant [address] [address] Sepideh Cardenas MD [address] [place] [phone] [email or web address] Scheduled Procedures Name Priority Associated Diagnoses Date/Ti nh ENDOSCOPIC RETROGRADE CHOLANGIOPANCREATOGRAPHY Encounter for pancreatic duct stent exchange 09/04/2025 8:00 AM EDT documented as of this encounter Results * MRI Abdomen Outside With Interpretation Or Consult (06/21/2023 12:00 AM EDT) 06/22/2023 8:19 AM EDT Impressions PENDING SALE TO [facility] - 06/22/2023 12:01 PM EDT Since 09/21/2022, increased multifocal intrahepatic ductal stricturing and dilatation. The distribution is suggestive of a right anterior hepatic stricture, although evaluation is limited due to respiratory motion. Increased ascites. ATTESTATION: I, Dr. Pk Kim as teaching physician, have reviewed the images for this case and if necessary edited the report originally created by Kaylan Riley. Narrative PENDING S[facility] TO [facility] - 06/22/2023 12:01 PM EDT MRI ABDOMEN OUTSIDE WITH INTERPRETATION OR CONSULT TECHNIQUE: MRI of the abdomen was performed with and without intravenous contrast. COMPARISON: MRI CHOLANGIOPANCREATOGRAPHY (MRCP) WITH AND WITHOUT CONTRAST FINDINGS: The examination is degraded by motion artifact. Lower chest: Increased small right pleural effusion with right lower lobe atelectasis. Liver: Cirrhotic morphology. Limited evaluation for focal hepatic lesions. Biliary: Irregularity of the intrahepatic biliary ductal system with multisegmental stricturing and dilatation, unchanged in the left lobe and right posterior distributions but increased in the right anterior distribution suggesting an increased stricture, however technical limitations preclude identification. Spleen: No splenomegaly or focal lesions. Pancreas: No masses or ductal dilatation. Adrenal glands: No nodules. Kidneys/ureters: No solid masses or hydronephrosis. Bilateral simple and septated renal cysts. Bowel: No distention or wall thickening. Peritoneum/retroperitoneum: Increased small volume ascites. Lymph nodes: No lymphadenopathy. Vessels: No abdominal aortic aneurysm. Bones/soft tissues: No marrow replacing lesions. Procedure Note Pk Kim MD, PhD - 06/22/2023 MRI ABDOMEN OUTSIDE WITH INTERPRETATION OR CONSULT TECHNIQUE: MRI of the abdomen was performed with and without intravenouscontrast. COMPARISON: MRI CHOLANGIOPANCREATOGRAPHY (MRCP) WITH AND WITHOUT [id number] FINDINGS: The examination is degraded by motion artifact. Lower chest: Increased small right pleural effusion with right lower lobeatelectasis. Liver: Cirrhotic morphology. Limited evaluation for focal hepaticlesions. Biliary: Irregularity of the intrahepatic biliary ductal system withmultisegmental stricturing and dilatation, unchanged in the left lobe andright posterior distributions but increased in the right anteriordistribution suggesting an increased stricture, however technicallimitations preclude identification. Spleen: No splenomegaly or focal lesions. Pancreas: No masses or ductal dilatation. Adrenal glands: No nodules. Kidneys/ureters: No solid masses or hydronephrosis. Bilateral simple andseptated renal cysts. Bowel: No distention or wall thickening. Peritoneum/retroperitoneum: Increased small volume ascites. Lymph nodes: No lymphadenopathy. Vessels: No abdominal aortic aneurysm. Bones/soft tissues: No marrow replacing lesions. IMPRESSION: Since 09/21/2022, increased multifocal intrahepatic ductal stricturing anddilatation. The distribution is suggestive of a right anterior hepaticstricture, although evaluation is limited due to respiratory motion. Increased ascites. ATTESTATION: I, Dr. Pk Kim as teaching physician, have reviewedthe images for this case and if necessary edited the report originallycreated by Kaylan Riley. us Edgar Rodriguez MD IMG OUTSIDE IMAGING W/ I NTERPRETATION Final Result [address] [address] documented in this encounter Visit Diagnoses Diagnosis Abnormal finding on imaging Other nonspecific (abnormal) findings on radiological and other examinations of body structure Abnormal finding on imaging Other nonspecific (abnormal) findings on radiological and other examinations of body structure Encounter for pancreatic duct stent exchange documented in this encounter Additional Health Concerns Infection Onset Date Last Indicated Resolved Time CoV-Exposed Comment:Removed via automated background process based on negative test result 07/20/2023 07/20/2023 07/25/2023 8:33 PM E DT CoV-Exposed Comment:Patient exposed to a COVID-19 positive close contact during hospitalization at [facility] (H) on 07/30/2023. See infection control note dated 08/01/2023 for more information (this is posted as a documentation encounter which can be found under Chart Review>Encounters). 07/30/2023 08/01/2023 08/10/2023 1:22 AM E DT COVID-19 11/30/2023 11/30/2023 12/21/2023 1:25 AM EST documented as of this encounter Care Teams Index Clerk Relationship Specialty Start Date End Date Manpreet Avila NP [facility] [place] [address] PCP - General Family Medicine 12/29/20 Serina Peralta MD [address] [place] [address] Dr [address] [id number] Gastroenterology 04/06/22 documented as of this encounter Additional Source Comments The information contained in this document represents components of the legal health record. It is not the complete legal health record.[facility]
--- OUTSIDE RECORDS SUMMARY | 2025-07-16 08:59 | XMS_ITS | Encounter Summary ---
Author Organization [facility] Address [address] [place] [phone] Phone Care Team Providers Care Legal Internship Name Role Phone Manpreet Avila NP Primary Care Provider + Serina Peralta MD Unavailable [phone] Encounter Details Date Type Department Care Team (Late st Contact Info) Description 07/19/2023 Procedure Pass [facility] PERIOPERATIVE DEPT [address] [place] [phone] Social History Tobacco Use Types Packs/Day Years [...] Description 07/28/2025 8:05 AM EDT Blood Draw [facility] [address] [phone] Sepideh Cardenas MD [address] [phone] [email or web address] 08/21/2025 7:30 AM EDT Pre-Admission Testing [facility] Pre-Procedure Evaluation Department Please [place] [address] Sancho Thakur MD [address] [place] [phone] [email or web address] 09/02/2025 8:00 AM EDT Blood Draw [facility] [address] [address] Sepideh Cardenas MD [address] [place] [phone] [email or web address] 09/04/2025 Procedure Pass [facility] COLT 4 ENDO DEPT [address] [facility], 4th [place] [address] 09/04/2025 8:00 AM EDT Hospital Encounter [facility] 4 ENDO DEPT [address] [facility], 4th [place] [address] Sancho Thakur MD [address] [facility] 5 [place] [address] [email or web address] 09/04/2025 8:00 AM EDT - 09/04/2025 9:30 AM EDT Surgery [facility] COLT [address] ENDO DEPT [address] [facility], 4th [place] [address] Sancho Thakur MD [address] [place] [phone] [email or web address] ENDOSCOPIC RETROGRADE CHOLANGIOPANCREATOGRAPHY 09/29/2025 8:05 AM EST Blood Draw [facility] Trans[facility] [address] [place] [phone] Sepideh Cardenas MD [address] [place] [phone] [email or web address] 10/27/2025 8:00 AM EST Blood Draw [facility] [address] [place] [address] Sepideh Cardenas MD [address] [place] [phone] [email or web address] 11/03/2025 9:40 AM EST Office Visit [facility] [address] [place] [address] Sepideh Cardenas MD [address] [place] [phone] [email or web address] Scheduled Procedures Name Priority Associated Diagnoses [...] COVID-19 positive close contact during hospitalization at [facility] ([facility]) on 07/30/2023. See infection control note dated 08/01/2023 for more information (this is posted as a documentation encounter which can be found under Chart Review>Encounters). 07/30/2023 08/01/2023 08/10/2023 1:22 AM E DT COVID-19 11/30/2023 11/30/2023 12/21/2023 1:25 AM EST documented as of this encounter Care Teams Legal Internship Relationship Specialty Start Date End Date Manpreet Avila NP [facility] [place] [address] PCP - General Family Medicine 12/29/20 Serina Peralta MD [address] [place] [address] [place] [address] Gastroenterology 04/06/22 documented as of this encounter Additional Source Comments The information contained in this document represents components of the legal health record. It is not the complete legal health record.[facility]
--- OUTSIDE RECORDS SUMMARY | 2025-07-16 08:59 | XMS_ITS | Clinical Summary ---
Author Organization [facility] Address [address] [place] [phone] Phone Care Team Providers Care Anthropology Department Chair Name Role Phone Manpreet Avila NP Primary Care Provider + Serina Peralta MD Unavailable [phone] Allergies No known active allergies Medications sertraline (ZOLOFT) 25 MG tablet Take 25 mg by mouth daily. Active blood-glucose Misc meter Insurance covered brand glucometer 1 each 07/27/20 23 Active GLUCOSE BLOOD test strip INSURANE COVERED brand test strips. Test up to 2 times a day, as directed. 60 strip 07/27/20 23 Active lancets Misc Test up to2 times a day, as directed. 60 each 07/27/20 23 Active alcohol PadM Use 2 times a day, as directed. 60 each 07/27/20 23 Active acetaminophen (TYLENOL) 325 mg tablet Take 2 tablets (650 mg total) by mouth every 8 (eight) hours as needed for pain (specific location in comments). 0 07/31/20 23 Active omeprazole (PRILOSEC) 40 MG capsule Take 1 capsule (40 mg total) by mouth daily before breakfast. 30 capsule 2 08/23/20 23 Active insulin glargine 100 unit/mL (3 mL) InPn injection pen Inject 8 Units under the skin nightly at bedtime. Active atorvastatin (LIPITOR) 20 MG tablet Take 20 mg by mouth daily. Active magnesium oxide (MAG-OX) 400 mg (241.3 mg elemental) tabletIndicati ons:Hypomagnes emia,Status post liver transplant Take 1 tablet (400 mg total) by mouth 2 (two) times a day. 60 tablet 11 08/01/20 24 Active aspirin 81 mg chewable tablet CHEW AND SWALLOW 1 TABLET(81 MG) BY MOUTH DAILY 30 tablet 08/21/20 24 Active ursodioL (ACTIGALL) 300 mg capsuleIndicat ions:S/P liver transplant,Imm unosuppression Take 2 capsules (600 mg total) by mouth 2 (two) times a day. 120 capsule 11 11/25/19 25 Active Additional Information Patient not taking.Reported on 05/29/2025 mycophenolate mofetil (CELLCEPT) 250 mg capsuleIndicat ions:S/P liver transplant,Imm unosuppression Take 2 capsules (500 mg total) by mouth every morning AND 2 capsules (500 mg total) every evening. 360 capsule 3 02/15/20 25 026 Active tacrolimus (PROGRAF) 1 MG capsuleIndicat ions:S/P liver transplant,Imm unosuppression Take 3 capsules (3 mg total) by mouth every morning AND 3 capsules (3 mg total) every evening. 180 capsule 07/11/20 25 026 Active tacrolimus (PROGRAF) 1 MG capsuleIndicat ions:S/P liver transplant,Imm unosuppression Take 2 capsules (2 mg total) by mouth every morning AND 2 capsules (2 mg total) every evening. 120 capsule 11 11/25/19 25 025 Discontinued Active Problems Patient Care Coordination No te Formatting of this note is d ifferent from the original. 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 Complications include coagulopathy, ascites requiring LVP (last tap was last week for 1.5L) and Cipro for SBP ppx, hepatic encephalopathy requiring both lactulose and then rifaximin NOW s/p DCD liver transplant on 07/19/23. Post op in ICU required numerous blood products. Immunosuppression: Maintenance IS:tacro, cellcept, pred Study / protocol: NO Stent: No ID: Donor: CMV - / EBV + Recip: CMV - / EBV + Famvir started for anti-viral ppx post-operatively; will continue for 3 months post-transplant (End date 10/19/2023) Bactrim started for PCP ppx post-operatively; will continue for 12 months post-transplant (End date 07/19/2024 All transplant recipients will require HIV/HBV/HCV serology and YULY testing performed 4-8 weeks after transplant. - Due after: 08/16/2023 All liver recipients will require HBV YULY testing performed 11-13 months after transplant. - Due after 06/18/2024 Anticoagulation: No Diabetes: NO Blood sugars <200 sent home with glucometer and supplies to check sugars and call PCP if sugars over 200 consistently. 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 - Stitches to neck and groin removed - [place] tolliver to incision Insurance Issues:Home with PT Additional Information: INITIAL post op in ICU required numerous blood products Volume overload, required extended stay for IV diuresis. Oral lasix plan at DC: Lasix 80 TID, Aldactone 75mg Follow up 1. Labs: Ordered and scheduled for [facility] labs for , 08/03/2023 at: [facility] [address] [place] [address] 2. Transplant Follow Up: Please schedule follow up with Dr. Cardenas for Monday, 08/07, with labs that morning, Please also schedule RN and Pharmacy visit Problem Noted Date Diagnosed Date Liver transplant planned 07/19/2023 Assessment & Plan (07/24/2023 11:47 AM EDT): Neuro: - dilaudid PRN - tylenol PRN Card: - goal map >65; Levo now off - goal CVP 6-12, give 5% albumin for CVP <6 - lactate normalized - A-line removed 07/22 Pulm: s/p R thoracentesis in OR for ~2L - extubated 07/21 am, currently on 1L NC, breathing comfortably. - pulmonary hygiene, IS - daily CXR (tiny R apical PTX seen on CT) GI: s/p OLT 07/19 --- on PPI IV BID --- added Carafate - ursodial 600mg PO BID - asa 81 mg added 07/22 out of c/f Hep Artery - OK for PSS diet - LFT's Q6h - liver US immediately postop patent vasculature - repeat liver u/s (07/20): patient vasculature and increase in perihepatic collection - repeat abdominal US 07/21 with similar perihepatic hematoma/fluid. Patent hepatic vasculature with interval improvement in main portal vein velocity. - CTA (07/20): prelim with no active extrav; hematoma ~8cm - JPs x 2 sanguinous output, drain q2 for now - bowel reg /renal: bun/creat: most recent creat 1.35 on 07/24 - pulled park 07/23 Heme: EBL 3L, transfused 8 RBC, 8 FFP, 2 plt, 1 cryo, 2L crystalloid, 1100cc cellsaver in OR. - postop blood products: 4 FFP, 2 Plt, 6 RBC, 1 Cryo - hgb goal >7, plt goal >50, INR goal <2.0 - AFUA x2 - s/p 1 unit PRBC's 07/21 Endo: BS 200s RISS ID: [id number] flat, afebrile - Started Bactirm Immunosuppression: - cellcept - tacrolimus with daily tacro levels - solumedrol taper PPX: - Transplant: Bactrim, Famvir - DVT: SCD's, hold chemical DVT ppx Code: FULL Dispo: ICU Immunosuppression 07/18/2023 Overview (07/18/2023): Induction: None Maintenance: Tacrolimus, Cellcept, Steroid taper Steroids: Maintain on Prednisone long-term Assessment & Plan (07/27/2023 11:27 AM EDT): Induction: None Maintenance: Tacrolimus, Cellcept, Steroid taper Steroids: Maintain on Prednisone long-term Plan: - Continue tacrolimus, monitor daily levels - Continue cellcept 750mg BID. - Continue steroid taper At risk for opportunistic infections 07/18/2023 Overview (07/25/2023): Donor: CMV - / EBV + Recip: CMV - / EBV + Famvir started for anti-viral ppx post-operatively; will continue for 3 months post-transplant (End date 10/19/2023) Bactrim started for PCP ppx post-operatively; will continue for 12 months post-transplant (End date 07/19/2024 All transplant recipients will require HIV/HBV/HCV serology and YULY testing performed 4-8 weeks after transplant. - Due after: 08/16/2023 All liver recipients will require HBV YULY testing performed 11-13 months after transplant. - Due after 06/18/2024 Assessment & Plan (07/25/2023 3:59 PM EDT): Donor: CMV - / EBV + Recip: CMV - / EBV + Famvir started for anti-viral ppx post-operatively; will continue for 3 months post-transplant (End date 10/19/2023) Bactrim started for PCP ppx post-operatively; will continue for 12 months post-transplant (End date 07/19/2024 All transplant recipients will require HIV/HBV/HCV serology and YULY testing performed 4-8 weeks after transplant. - Due after: 08/16/2023 All liver recipients will require HBV YULY testing performed 11-13 months after transplant. - Due after 06/18/2024 Plan: - Continue Famvir and Bactrim Abnormal finding on imaging 12/26/2020 Assessment & Plan (12/26/2020 2:27 PM EST): CXR 12/25 (obtained for COVID rule out) demonstrated 7 and 8 mm nodules in the right mid to lower lung zone that the radiologist felt could represent pulmonary vessels on end or pulmonary nodules. Further characterization with chest CT was recommended to exclude pulmonary nodules. CT chest noted that apparent nodular opacities identified on recent chest radiograph corresponded to vessels seen on-end. Coagulopathy 12/25/2020 Assessment & Plan (07/18/2023 2:26 PM EDT): History of severe coagulopathy and anemia and was evaliated at [facility] 12/2020, underwent extensive evaluation, coagulopathy was most likely due to decreased synthetic function of clotting factors due to underlying liver disease. He was empirically treated with vitamin K 10mg x 3 days. Infection, DIC, and hemolytic causes of coagulopathy were felt to be unlikely. Assessment & Plan (12/29/2020 3:40 PM EST): Hemodynamically stable with mild bleeding from his gums, skin, and rectum over the last 2-3 weeks, though now resolved. He has a history of anemia and has been on iron supplementation, but Hgb 7.6 --> 9.8 s/p 1u pRBC at OSH. INR was above assay on arrival to OSH with platelets 100-150K. Increased bilirubin and LDH. Coagulopathy corrected with numerous FFP and Cryo transfusions throughout course at OSH. Hematology consulted and feel that coagulopathy most likely due to decreased synthetic function of his clotting factors due to his liver disease. Plan to re-evaluate for presence of an inhibitor with mixing studies, evaluate for autoimmune etiologies, and treat for potential vitamin K deficiency given diarrhea >6 months (now s/p vitamin K 10mg x3 (12/26-12/28). Hemolytic cause of coagulopathy unlikely given no schistocytes on smear. There is low suspicion for infection and DIC seems unlikely. Renal function is at baseline, so low concern for HUS. 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 - Anemia w/u: Iron 104 , TST 93%, TIBC 214, Ferritin 104, B12 1269, Folate 10.1, retics 4.0 (H) Pending Studies: - Vitamin K - Vitamin A - Vitamin E Tx: - Appreciate Hematology recommendations - Appreciate GI recommendations - Trend CBC daily; maintain T&S and transfuse if Hgb <7 - Per hematology, no need to give further FFP or Cryo unless actively bleeding or planning for a procedure (s/p 3U cryo and 1U FFP since arrival to [facility]) S/P liver transplant 12/25/2020 Overview (08/04/2023): Transplant date:07/19/2023 Original liver disease: PSC:UC Type of liver transplant: DCD Functional Status: 70% working at time of being called in yes In hospital at time of txp no Insurance: Private Pre-op Ht: 175.3 cm Wt 45.2 kg CMV D-/R- EBV D+/R+ Donor ID: [id number] Donor details: Study/protocoL WIT: 54 min CIT: 15 hr 53min Received on pump, stayed on pump Maintenance: tacro, cellecept, pred Early steroid withdrawal: Immediate post-op Complications/additional details: INITIAL post op in ICU required numerous blood products Transplant Team: Surgeon: Dr Cardenas Fellow: Dr Harry Referring: Dr. Reza Pre-transplant history: - NO TIPS, NO PV thrombus, NO PShx (abdominal). 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 Complications include coagulopathy, ascites requiring LVP (last tap was last week for 1.5L) and Cipro for SBP ppx, hepatic encephalopathy requiring both lactulose and then rifaximin. The patient was admitted to the Transplant Service and was taken to the operating room for an orthotopic DCD liver transplant on 07/19/23. Please see the separately dictated operative report for further details. Noting Donor liver arrived on normothermic pump. Back table of donor liver without issue, standard anatomy, no vascular reconstruction required. Liver transplant technique: bi- caval with veno-venous bypass.. Graft hepatic artery was cut back to the OLYA due to a calcification. The EBL was 2500cc's, and pt received 1100cc Cell saver, 8 U PRBCs, 9U FFP, Cryo, and PLTs x 2 intraoperatively. Pt. tolerated the procedure well and was transferred to the SICU intubated and in stable condition. A post-operative abdominal ultrasound was unremarkable. Overnight into POD#1 pt. Has thus far required 5 units PRBC's, 4 units FFP, 2 pk plts. Underwent a CTA showed hematoma without extravasation. LFT's initially elevated and continue to be severely elevated. Repeat liver US ordered and diuresed with IV lasix. Pt progressed well, ASA started, transferred to the Transplant Unit. LFTs improved and continued to down-trend, with ongoing down-trend in AST/ALT. On 07/25/23 pt. With bump in Bili and Alk phos plan was for MRCP however pt. Unable to tolerate due to volume overload. On 07/26/23 LFT's improving. Given lasix 80mg IV BID with albumin 25%. Pt reporting loose stools. CDiff ordered, negative. Imodium ordered. On 07/27/23 aldactone added in addition to lasix/ablumin. On 07/28/23 weight down trending. Diuresis continues. Final AFUA removed. On 07/29/23 alk phos persistently elevated, liver transplant US stable, no biliary ductal dilation; Continues on diuresis. UA wnl On 07/30: LFTs improving and continues to adequately diurese On the day of discharge, pt was alert and oriented. PT evaluated and pt was cleared for discharge to home. LFTs continue to improve. Follow Up: - Labs ordered and scheduled for , 08/03 at [facility] in [place] - Follow Up: Ye on Monday, with labs that morning. Assessment & Plan (12/29/2020 9:21 AM EST): Diagnosed in 1999; followed by Dr. Loja at [facility]. Cirrhosis likely multifactorial in setting of primary sclerosing cholangitis (bx proven, stage 1- 2 in 2012) and EtOH use. Last drink was in 09/2020, no e/o alcohol withdrawal. Poor prognosis without transplantation. - Appreciate GI recs - Appreciate ACT recommendations - Appreciate SW recommendations - F/u FANY, AMA, and SMA MELD-Na score: 18 at 12/29/2020 5:55 AM MELD score: 18 at 12/29/2020 5:55 AM Calculated from: Serum Creatinine: 0.81 mg/dL (Rounded to 1 mg/dL) at 12/29/2020 5:55 AM Serum Sodium: 142 mmol/L (Rounded to 137 mmol/L) at 12/29/2020 5:55 AM Total Bilirubin: 2.6 mg/dL at 12/29/2020 5:55 AM INR(ratio): 2.1 at 12/29/2020 5:55 AM Age: 55 years Volume: Last (and only) paracentesis on 11/27/20 at OSH with removal of 1.3L. Negative for SBP. Currently w/ ascites and trace BLE. Albumin 2.8. - Continue Lasix 20mg daily and Spironolactone 50mg daily given stable renal function (increased on 12/29) - S/p Albumin challenge 1mg/kg once daily x2 (12/26 + 12/27) - AMPS evaluated with US at bedside 12/26, no large pocket for LVP. Can reassess PRN. Infection: No history of SBP and para 11/27 w/ negative cultures/smear. No concerns for active infection at this time. Bleeding: Mild bleeding prior to admission in setting of coagulopathy. - Continue propranolol 10mg BID for grade I esophageal varices - S/p Vitamin K x3 days (12/26-12/28) - Ongoing coagulopathy work up as discussed elsewhere - Consider EGD this admission if s/sx bleeding or ongoing downtrending Hgb Encephalopathy: NH3 elevated, but no history of or concern for HE. - Low threshold to start Lactulose +/- Rifaxamin Screening: Followed by Dr. Loja of hepatology at [facility]. - CA 19-9 10 - AFP 2.3 - S/p MRCP which was negative for HCC - F/u ethyl glucuronide Ulcerative colitis 12/25/2020 Assessment & Plan (07/18/2023 1:38 PM EDT): Diagnosed in 2002, colonoscopy 11/2020 c/f UC flare that was treated with Solumedrol and then prednisone with improvement in symptoms. Continues on mesalamine as well as vedolizumab infusions every 8 weeks beginning (since 01/2021, last infusion about three weeks ago) and most recently was started on budesonide. Most recent colonoscopy (10/2022) with improvement. Assessment & Plan (12/29/2020 8:51 AM EST): Diagnosed ~2002 and has had chronic watery diarrhea (>6 BMs per day) for the last 6 months iso mesalamine non-adherence (caused itching). Colonoscopy 12/17 demonstrated ulcerative changes, erythema, and friability continuously from the rectum to the cecum. Started solumedrol at OSH, now transitioned to prednisone. His BMs have decreased in frequency to formed stools 2-3x daily and his prior RLQ discomfort has improved. CRP 9.3, ESR 13. Cdiff negative. - Appreciate GI recs - Taper Prednisone by 5mg PO weekly starting on 12/29 given improvement in symptoms (plan for GI follow-up within two weeks to discuss further taper), currently on 35mg PO daily --- Continue PPI --- Continue Ca/Vit D supplementation --- Consider adding PCP ppx if extended steroid course - Continue Mesalamine 1.2g po QID; monitor for recurrent pruritis - Continue Hydroxyzine 25 po qHS PRN - Continue Ferrous sulfate 325mg TID - Continue Enoxaparin for DVT ppx, trend PLT and stop if <50K - Avoid all NSAIDs - Considering the patient may require other immunosuppressive treatment options (eg, thiopurines, cyclosporine, anti-TNF therapy) for IBD, sent further evaluation including: --- F/u TPMT level, T spot - Ensure vaccinations this admission: --- Tdap + Pneumovax (IAC consult placed for PCP records 12/27 given patient unaware when last doses were) --- Received Influenza vaccine in November 2020 --- COVID-19 when available --- HAV and HBV immune, HCV negative - 25-OH Vitamin D level low (started on repletion) - F/u Vitamin AEK Encounters Date Type Department Care Team Description 5 Orders Only [facility] Transplant Clinic [address] [place] [address] Sepideh Cardenas MD 5 Refill [facility] Transplant [facility] [address] [address] Dinah Gonzalez, [place] 5 Orders Only [facility] Trans[facility] [address] [address] Sepideh Cardenas MD 5 Telephone [facility] Transplant [facility] [address] [address] Cathie Burdick, [place] 5 Orders Only [facility] Transplant [facility] [address] [address] Sepideh Cardenas MD 5 Orders Only [facility] Transplant [facility] [address] [place] [address] Sepideh Cardenas MD 5 8:42 AM EDT Anesthesia Event [facility] COLT 4 ENDO DEPT [address] [address] Evette Sotelo MD Johnson, Brielle Taryn, RN 5 8:15 AM EDT - 5 11:59 PM EDT Hospital Encounter [facility] GI Endoscopy, [place] [address] [facility], [address] [place] [address] Sancho Thakur MD Discharge Disposition: Home or Self Care 5 8:00 AM EDT - 5 9:30 AM EDT Surgery [facility] COLT [address] [facility], [address] [place] [phone] Sancho Thakur MD ENDOSCOPIC RETROGRADE CHOLANGIOPANCREATOGRAPHY 5 8:00 AM EDT - 5 10:16 AM EDT Hospital Encounter [facility] COLT [address] [facility], [address] [place] [phone] Sancho Thakur MD Discharge Disposition: Home or Self Care 5 Orders Only [facility] 55 [facility], [address] [place] [address] Sancho Thakur MD Encounter for pancreatic duct stent exchange (Primary Dx); PSC (primary sclerosing cholangitis); S/P liver transplant; Alcoholic cirrhosis of liver with ascites 5 Telephone [facility] Transplant Clinic [address] [place] [phone] Rica Rouse, [place] 5 Procedure [place] [address] ENDO DEPT 55 [facility], [address] [place] [address] 5 Orders Only [facility] Transplant [facility] [address] [place] [address] Sepideh Cardenas MD 5 Telephone [facility] Transplant Clinic [address] [place] [phone] Rica Rouse, [place] 5 Telephone [facility] Transplant Clinic [address] [place] [phone] Elidia Cordova RN 5 6:00 PM EDT Pre-Admission Testing [facility] Pre-Procedure Evaluation Department [place] [address] Sancho Thakur MD 5 Orders Only [facility] Transplant Clinic [address] [place] [address] Sepideh Cardenas MD 5 Telephone [facility] [address] [place] [phone] Rica Rouse RN 5 Orders Only [facility] Transplant Clinic [address] [place] [phone] Sepideh Cardenas MD from Last 3 Months Immunizations Immunization Administration Dates Next Due COVID-19 (Pre-09/11) Pfizer Vaccine, mRNA, PF ,02/16/2021 INFLUENZA, SPLIT VIRUS, TRIVALENT PF 08/21/2012 Influenza Quadrivalent Preservative Free IM 03/11/2022,12/15/2020 Influenza Quadrivalent w/ Preservative IM 2017 Influenza trivalent preservative free intraderma l 08/18/2014 Pneumococcal polysaccharide PPSV23 03/08/2019 Tdap 02/28/2023,03/21/2018 Family History Medical History Relation Comments Cancer Sister Relation Status Comments Sister Social History Tobacco Use Types Packs/Day Years Used Date Smoking Tobacco: Former Cigars Smokeless Tobacco: Never Tobacco Cessation:Counseling Given: Not Answered Comments:Quit smoking cigars 2 weeks ago. Only [...] Orientation Straight 05/19/2021 9: 32 AM EDT Last Filed Vital Signs Vital Sign Reading Time Taken Comments Blood Pressure 113/75 05/29/2025 10:13 AM EDT Pulse 71 05/29/2025 10:13 AM EDT Temperature 35.9 C (96.6 F) 05/29/2025 9:53 AM EDT Respiratory Rate 14 05/29/2025 10:13 AM EDT Oxygen Saturation 96% 05/29/2025 10:13 AM EDT Inhaled Oxygen Concentration 28% 07/21/2023 1 0:25 AM EDT Weight 115.7 kg (255 lb) 05/15/2025 11:48 AM EDT Height 175.3 cm (5' 9 ) 05/15/2025 11:48 AM EDT Body Mass Index 37.66 05/15/2025 11:48 AM EDT Plan of Treatment Upcoming Encounters Date Type Department Care Team (Latest Contact Info) Description 07/28/2025 8:05 AM EDT Blood Draw [facility] Transplant Clinic [address] [address] Sepideh Cardenas MD [address] [place] [phone] [email or web address] 08/21/2025 7:30 AM EDT Pre-Admission Testing [facility] Pre-Procedure Evaluation Department [place] [address] Sancho Thakur MD [address] [place] [phone] [email or web address] 09/02/2025 8:00 AM EDT Blood Draw [facility] Transplant Clinic [address] [place] [phone] Sepideh Cardenas MD [address] [place] [phone] [email or web address] 09/04/2025 Procedure Pass [facility] COLT 4 ENDO DEPT [address] [facility], [address] [place] [address] 09/04/2025 8:00 AM EDT Hospital Encounter [facility] COLT 4 ENDO DEPT [address] [facility], [address]th [place] [address] Sancho Thakur MD [address] [place] [phone] [email or web address] 09/04/2025 8:00 AM EDT - 09/04/2025 9:30 AM EDT Surgery [facility] 4 ENDO DEPT [address] [place] [address], [address] [place] [address] Sancho Thakur MD [address] [place] [phone] [email or web address] ENDOSCOPIC RETROGRADE CHOLANGIOPANCREATOGRAPHY 09/29/2025 8:05 AM EST Blood Draw [facility] Transplant Clinic [address] [place] [phone] Sepideh Cardenas MD [address] [place] [phone] [email or web address] [facility]25 8:00 AM EST Blood Draw [facility] [address] [place] [phone] Sepideh Cardenas MD [address] [place] [phone] [email or web address] 11/03/2025 9:40 AM EST Office Visit [facility] [address] [place] [address] [phone] Sepideh Cardenas MD [address] [place] [phone] [email or web address] Scheduled Procedures Name Priority Associated Diagnoses Date/Ti me ENDOSCOPIC RETROGRADE CHOLANGIOPANCREATOGRAPHY Encounter for pancreatic duct stent exchange 09/04/2025 8:00 AM EDT Health Maintenance Due Date Last Done Comments DEPRESSION SCREENING 1978 ZOSTER VACCINES (1 of 2) 1985 COLOGUARD 2011 FIT TEST 2011 SIGMOIDOSCOPY 2011 VIRTUAL COLONOSCOPY 2011 FOBT 08/21/2013 08/21/2012 COVID-19 VACCINE (3 - Pfizer risk series) 04/08/2021 03/11/2021, 02/16/2021 INFLUENZA VACCINE (#1) 2025 , 01/18/2023, 12/15/2020, Additional history exists LIPID PANEL 12/27/2025 12/27/2020, 03/08/2019 SMOKING Hx and SMOKELESS TOBACCO SCREENING 05/29/2026 05/29/2025 SCREENING FOR DIABETES 07/15/2028 07/15/2025 COLONOSCOPY 09/28/2032 09/28/2022 COLORECTAL CANCER SCREENING 09/28/2032 Adult Td,Tdap Booster 02/28/2033 02/28/2023, 018 HEPATITIS C SCREENING Completed 09/04/2023 , 09/04/2023, 07/18/2023, Additional history exists HIV ONE-TIME SCREENING (18-65 YEARS) Completed 09/04/2023 PNEUMOCOCCAL VACCINES (50+ years) Completed 05/05/2025, 11/22/2024, 03/08/2019 HIB VACCINES Aged Out No longer eligi ble based on patient's age to complete this topic MENINGOCOCCAL VACCINES (ACWY) Aged Out No longer eligible based on patient's age to complete this topic MENINGOCOCCAL VACCINES (B) Aged Out N o longer eligible based on patient's age to complete this topic Medical Devices Implanted Type Area Adult Services Librarian Device Identifier Shelf Expiration Date Model / Serial / Lot Stent Cotton-Vera 10fr 3.7mm 9cm .035in Otw Biliary Catheter Polyethylene Distal Flap Curved Shape Tapered Tip - [id number] Implanted:Qty: 3 on 05/29/2025 by Sancho Thakur MD at [facility] STANDARD [employer]ile [employer] [id number] 12/25/2027 CLSO-10- 9 / / [id number] Explanted Type Area Adult Services Librarian Device Identifier Shelf Expiration Date Model / Serial / Lot Stent Cotton-Vera 10fr 3.7mm 9cm .035in Otw Biliary Catheter Polyethylene Distal Flap Curved Shape Tapered Tip - [id number] Implanted:Qty: 1 on 08/23/2023 by Sancho Thakur MD at [facility] Explanted:Qty: 1 on 12/31/2024 by Sancho Thakur MD at [facility] STANDARD [employer] 05/23/2026 CLSO-10- 9 / / Stent Cotton-Vera 10fr 3.7mm 9cm .035in Otw Biliary Catheter Polyethylene Distal Flap Curved Shape Tapered Tip - [id number] Implanted:Qty: 1 on 10/03/2024 by Val Gomez MD at [facility] Explanted:Qty: 1 on 12/31/2024 by Sancho Thakur MD at [facility] [employer]ARD [employer] [id number] 08/07/2027 CLSO-10- 9 / / [id number] Stent Cotton-Vera 10fr 3.7mm 9cm .035in Otw Biliary Catheter Polyethylene Distal Flap Curved Shape Tapered Tip - [id number] Implanted:Qty: 1 on 10/03/2024 by Val Gomez MD at [facility] Explanted:Qty: 1 on 12/31/2024 at [facility] ST[employer]ARD [employer] [id number] 08/07/2027 CLSO-10- 9 / / [id number] Stent Cotton-Vera 10fr 3.7mm 9cm .035in Otw Biliary Catheter Polyethylene Distal Flap Curved Shape Tapered Tip - [id number] Implanted:Qty: 1 on 12/31/2024 by Sancho Thakur MD at [facility] Explanted:Qty: 1 on 03/17/2025 by Sancho Thakur MD at [facility] ST[employer]ARD [employer] [id number] 10/25/2027 CLSO-10- 9 / / [id number] Stent Cotton-Vera 10fr 3.7mm 9cm .035in Otw Biliary Catheter Polyethylene Distal Flap Curved Shape Tapered Tip - [id number] Implanted:Qty: 1 on 12/31/2024 by Sancho Thakur MD at [facility] Explanted:Qty: 1 on 03/17/2025 by Sancho Thakur MD at [facility] STANDARD [employer] [id number] 10/03/2027 CLSO-10- 9 / / [id number] Stent Cotton-Vera 10fr 3.7mm 9cm .035in Otw Biliary Catheter Polyethylene Distal Flap Curved Shape Tapered Tip - [id number] Implanted:Qty: 1 on 03/17/2025 by Sancho Thakur MD at [facility] Explanted:Qty: 1 on 05/29/2025 by Sancho Thakur MD at [facility] STANDARD Bile Du[employer] [id number] 12/26/2027 CLSO-10- 9 / / [id number] Stent Cotton-Vera 10fr 3.7mm 9cm .035in Otw Biliary Catheter Polyethylene Distal Flap Curved Shape Tapered Tip - [id number] Implanted:Qty: 1 on 03/17/2025 by Sancho Thakur MD at [facility] Explanted:Qty: 1 on 05/29/2025 by Sancho Thakur MD at [facility] STANDARD B[employer] [id number] 12/26/2027 CLSO-10- 9 / / [id number] Stent Cotton-Vera 10fr 3.7mm 9cm .035in Otw Biliary Catheter Polyethylene Distal Flap Curved Shape Tapered Tip - [id number] Implanted:Qty: 1 on 03/17/2025 by Sancho Thakur MD at [facility] Explanted:Qty: 1 on 05/29/2025 by Sancho Thakur MD at [facility] STANDARD Bile [employer] [id number] 12/26/2027 CLSO-10- 9 / / [id number] Stent Johlin 10fr 22fr 3.7mm .035in Pancreatic Wedge - [id number] Implanted:Qty: 1 on 10/05/2023 by Sancho Thakur MD at [facility] Explanted:Qty: 1 on 12/31/2024 by Sancho Thakur MD at [facility] [employer] [id number] 08/03/2026 JPWS-10- 22 / / [id number] Description:10 x 17 Stent Johlin 10fr 22fr 3.7mm .035in Pancreatic Wedge - [id number] Implanted:Qty: 1 on 10/05/2023 by Sancho Thakur MD at [facility] Explanted:Qty: 1 on 12/31/2024 by Sancho Thakur MD at [facility] [employer] [id number] 08/01/2026 JPWS-10- 22 / / [id number] Description:10 x 13 Stent Toni-Vera 8.5fr 9cm .035in Otw Biliary Catheter Plastic Flaps - [id number] Implanted:Qty: 1 on 12/31/2024 by Sancho Thakur MD at [facility] Explanted:Qty: 1 on 03/17/2025 by Sancho Thakur MD at [facility] [employer] [id number] 09/21/2025 CLSO-8.5 -9 / / [id number] Procedures Procedure Name Priority Date/Time Associated Diagnosis Comments COMPREHENSIVE METABOLIC PANEL Routine 8:13 AM EDT PHOSPHORUS Routine 07/15/2025 8:13 AM EDT MAGNESIUM Routine 07/15/2025 8:13 AM EDT BILIRUBIN, DIRECT Routine 07/15/2025 8:13 AM EDT CBC AND DIFFERENTIAL Routine 07/15/2025 8:13 AM EDT COMPREHENSIVE METABOLIC PANEL Routine 8:24 AM EDT PHOSPHORUS Routine 07/10/2025 8:24 AM EDT MAGNESIUM Routine 07/10/2025 8:24 AM EDT BILIRUBIN, DIRECT Routine 07/10/2025 8:24 AM EDT TACROLIMUS LEVEL Routine 07/10/2025 8:24 AM EDT CBC AND DIFFERENTIAL Routine 07/10/2025 8:24 AM EDT COMPREHENSIVE METABOLIC PANEL Routine 8:14 AM EDT PHOSPHORUS Routine 07/04/2025 8:14 AM EDT MAGNESIUM Routine 07/04/2025 8:14 AM EDT BILIRUBIN, DIRECT Routine 07/04/2025 8:14 AM EDT TACROLIMUS LEVEL Routine 07/04/2025 8:14 AM EDT CBC AND DIFFERENTIAL Routine 07/04/2025 8:14 AM EDT TACROLIMUS LEVEL Routine 06/20/2025 8:12 AM EDT COMPREHENSIVE METABOLIC PANEL Routine 8:12 AM EDT PHOSPHORUS Routine 06/20/2025 8:12 AM EDT MAGNESIUM Routine 06/20/2025 8:12 AM EDT BILIRUBIN, DIRECT Routine 06/20/2025 8:12 AM EDT CBC AND DIFFERENTIAL Routine 06/20/2025 8:12 AM EDT FL ENDOSCOPIC RETROGRADE BILIARY ONLY Routine 05/29/2025 9:40 AM EDT ENDOSCOPY PROCEDURE 05/29/2025 9:06 AM EDT AIRWAY PLACEMENT Routine 05/29/2025 8:54 AM EDT ENDOSCOPIC RETROGRADE CHOLANGIOPANCREATOGRAPHY 05/29/2025 8:42 AM EDT Encounter for pancreatic duct stent exchange S/P liver transplant Special Needs Sent PREP via PG - AP on 03/21 POCT GLUCOSE Routine 05/29/2025 8:24 AM EDT COMPREHENSIVE METABOLIC PANEL Routine 8:02 AM EDT PHOSPHORUS Routine 05/28/2025 8:02 AM EDT MAGNESIUM Routine 05/28/2025 8:02 AM EDT BILIRUBIN, DIRECT Routine 05/28/2025 8:02 AM EDT TACROLIMUS LEVEL Routine 05/28/2025 8:02 AM EDT CBC AND DIFFERENTIAL Routine 05/28/2025 8:02 AM EDT TACROLIMUS LEVEL Routine 05/07/2025 8:03 AM EDT CBC AND DIFFERENTIAL Routine 05/07/2025 8:03 AM EDT COMPREHENSIVE METABOLIC PANEL Routine 8:03 AM EDT PHOSPHORUS Routine 05/07/2025 8:03 AM EDT MAGNESIUM Routine 05/07/2025 8:03 AM EDT BILIRUBIN, DIRECT Routine 05/07/2025 8:03 AM EDT TACROLIMUS LEVEL Routine 04/22/2025 8:10 AM EDT COMPREHENSIVE METABOLIC PANEL Routine 8:10 AM EDT PHOSPHORUS Routine 04/22/2025 8:10 AM EDT MAGNESIUM Routine 04/22/2025 8:10 AM EDT BILIRUBIN, DIRECT Routine 04/22/2025 8:10 AM EDT CBC AND DIFFERENTIAL Routine 04/22/2025 8:10 AM EDT HEPATITIS C ANTIBODY, QUALITATIVE Routine 09/04/2023 8:50 AM EDT S/P liver transplant HM COLONOSCOPY FOR RESULT ENTRY ONLY Routine 09/28/2022 LIPID PANEL Routine 12/27/2020 4:02 AM EST from Last 3 Months or Most Recently Relevant to Health Maintenance Results * (ABNORMAL) Comprehensive metabolic panel (07/15/2025 8:13 AM EDT) Only the most recent of7 resultswithin the time period is included. Glucose 102(H) 65 - 99 mg/dL [facility] [place] [facility] Comment: Fasting reference interval For someone without known diabetes, a glucose value between 100 and 125 mg/dL is consistent with prediabetes and should be confirmed with a follow-up test. Urea Nitrogen (BUN) 21 7 - 25 mg/dL [facility] [place] [facility] Creatinine 1.38(H) 0.70 - 1.30 mg/dL [facility] [place] [facility] EGFR 59(L) > OR = 60 mL/min/1. 73m2 [facility] [place] [facility] BUN/Creatinine Ratio 15 6 - 22 (calc) [facility] Sodium 137 135 - 146 mmol/L [facility] [place] [facility] Potassium 4.7 3.5 - 5.3 mmol/L [facility] [place] [facility] Chloride 110 98 - 110 mmol/L [facility] [place] [facility] Carbon Dioxide 21 20 - 32 mmol/L [facility] [place] [facility] Calcium 8.7 8.6 - 10.3 mg/dL [facility] [place] [facility] Protein, Total 6.4 6.1 - 8.1 g/dL [facility] [place] [facility] Albumin 3.6 3.6 - 5.1 g/dL [facility] [place] [facility] Globulin 2.8 1.9 - 3.7 g/dL (calc) [facility] [place] [facility] Albumin/Globuli n Ratio 1.3 1.0 - 2.5 (calc) [facility] Bilirubin, Total 0.3 0.2 - 1.2 mg/dL [facility] [place] [facility] Alkaline Phosphatase 225(H) 35 - 144 U/L [facility] [place] [facility] AST 23 10 - 35 U/L [facility] [place] [facility] ALT 36 9 - 46 U/L [facility] [place] [facility] 07/15/2025 8:13 AM EDT 07/15/2025 8:14 AM EDT Narrative [facility] - 07/16/2025 4:08 AM EDT FASTING:YES FASTING: YES us Sepideh Cardenas MD LAB BLOOD ORDERABLES Final Resul t [facility] [address] [facility] [address] [facility] [address], [facility] [phone] [facility] [place] [facility] [address] [place] [phone] * (ABNORMAL) CBC and differential (07/15/2025 8:13 AM EDT) Only the most recent of7 resultswithin the time period is included. WBC 3.1(L) 3.8 - 10.8 Thousand/ uL [facility] [place] [facility] Red Blood Cell 4.39 4.20 - 5.80 Million/u L [facility] [place] [facility] Hemoglobin 12.8(L) 13.2 - 17.1 g/dL [facility] [place] [facility] Hematocrit 41.6 38.5 - 50.0 % [facility] MCV 94.8 80.0 - 100.0 fL [facility] [place] [facility] MCH 29.2 27.0 - 33.0 pg [facility] [place] [facility] MCHC 30.8(L) 32.0 - 36.0 g/dL [facility] [place] [facility] Comment: For adults, a slight decrease in the calculated MCHC value (in the range of 30 to 32 g/dL) is most likely not clinically significant; however, it should be interpreted with caution in correlation with other red cell parameters and the patient's clinical condition. RDW 13.2 11.0 - 15.0 % [facility] [place] [facility] Platelet Count 286 140 - 400 Thousand/ uL [facility] [place] [facility] MPV 9.7 7.5 - 12.5 fL [facility] [place] [facility] Absolute Neutrophils 1,206(L) 1,500 - 7,800 cells/uL [facility] [place] [facility] Absolute Lymphocytes 1,327 850 - 3,900 cells/uL [facility] Absolute Monocytes 347 200 - 950 cells/uL [facility] [place] [facility] Absolute Eosinophils 189 15 - 500 cells/uL [facility] [place] [facility] Absolute Basophils 31 0 - 200 cells/uL [facility] [place] [facility] Neutrophils 38.9 % [facility] Lymphocytes 42.8 % [facility] Monocytes 11.2 % [facility] Eosinophils 6.1 % [facility] Basophils 1.0 % [facility] 07/15/2025 8:13 AM EDT 07/15/2025 8:14 AM EDT Narrative [facility] - 07/16/2025 4:08 AM EDT FASTING:YES FASTING: YES us Sepideh Cardenas MD LAB BLOOD ORDERABLES Final Resul t Performing Organization Address City/[facility]/ZIP Co de Phone Number [facility] [address] [phone], [facility] [phone] [facility] [place] [facility] [address] [place] [phone] * Phosphorus (07/15/2025 8:13 AM EDT) Only the most recent of7 resultswithin the time period is included. Phosphate ( Phosphorus) 3.6 2.5 - 4.5 mg/dL [facility] [place] [facility] 07/15/2025 8:13 AM EDT 07/15/2025 8:14 AM EDT Narrative [facility] 07/16/2025 4:08 AM EDT FASTING:YES FASTING: YES us Sepideh Cardenas MD LAB BLOOD ORDERABLES Final Resul t [facility] [address] [phone], [facility] [phone] [facility] [place] [facility] [address] [place] [phone] * Magnesium (07/15/2025 8:13 AM EDT) Only the most recent of7 resultswithin the time period is included. Magnesium 1.9 1.5 - 2.5 mg/dL [facility] [place] [facility] 07/15/2025 8:13 AM EDT 07/15/2025 8:14 AM EDT [facility] - 07/16/2025 4:08 AM EDT FASTING:YES FASTING: YES us Sepideh Cardenas MD LAB BLOOD ORDERABLES Final Resul t Performing Organization Address [facility] de Phone Number [facility] [address] [phone], [place] [phone] [facility] [place] [facility] [address] [place] [phone] * Bilirubin, direct (07/15/2025 8:13 AM EDT) Only the most recent of7 resultswithin the time period is included. Bilirubin, direct 0.1 < OR = 0.2 mg/dL [facility] [place] [facility] 07/15/2025 8:13 AM EDT 07/15/2025 8:14 AM EDT [facility] - 07/16/2025 4:08 AM EDT FASTING:YES FASTING: YES us Sepideh Cardenas MD LAB BLOOD ORDERABLES Final Resul t Performing Organization Address [facility] Co de Phone Number [facility] [address] [phone] [phone] [facility] [place] [facility] [address] [place] [phone] * (ABNORMAL) Tacrolimus level (07/10/2025 8:24 AM EDT) Only the most recent of6 resultswithin the time period is included. Tacrolimus 2.8(L) mcg/L [facility] Comment: No definitive therapeutic or toxic ranges have been established. Optimal blood drug levels are influenced by type of transplant, patient response, time post- transplant, co-administration of other drugs, and drug formulation. The following trough range is a suggested guideline: 5.0-20.0 mcg/L. This test was developed and its analytical performance characteristics have been determined by [facility]. It has not been cleared or approved by the FDA. This assay has been validated pursuant to the CLIA regulations and is used for clinical purposes. 07/10/2025 8:24 AM EDT 07/10/2025 8:25 AM EDT Narrative [facility] - 07/11/2025 1:31 AM EDT FASTING:YES FASTING: YES Sepideh Cardenas MD LAB BLOOD ORDERABLES Final Resul t [facility] [address] [place] [address],[place] [address], [facility] [phone] [facility] [place] [facility] [address] [place] [phone] * FL ENDOSCOPIC RETROGRADE BILIARY ONLY (05/29/2025 9:40 AM EDT) Anatomical Region Laterality Modality Abdomen Radio Fluoroscop y 05/29/2025 1:12 PM EDT Narrative 05/29/2025 1:12 PM EDT Dose (mGy): 434578 Dose Area Product (DAP): 1711.6 Dose Area Product (DAP) Units: uGy.m2 Fluoro time (min): 4.4 [facility] Dose Report: CTDIvol: 0 mGy. DLP: 0 mGy-cm. Procedure Note Traveling Repair Accountant, Dictation - 05/29/2025 Dose (mGy): 573986 Dose Area Product (DAP): 1711.6 Dose Area Product (DAP) Units: uGy.m2 Fluoro time (min): 4.4 [facility] Dose Report: CTDIvol: 0 mGy. DLP: 0 mGy-cm. us Sancho Thakur MD IMG FL EXAMS Final Result * ENDOSCOPY PROCEDURE (05/29/2025 9:06 AM EDT) 05/29/2025 9:06 AM EDT Narrative Transcriptions Sancho Thakur MD - 05/29/2025 9:06 AM EDT Gastrointestinal Endoscopy Unit Patient Name: Yaya Howell Exam Date: 05/29/2025 9:06 AM Date of : 1965 Admit Type: Outpatient Age: 59 Room: [place] [address] Gender: Male Note Status: Finalized Attending MD: Sancho Thakur MD, Procedure: ERCP Indications: s/p OLT with anastomotic stricture, biliary stents in-situ, stent re-evaluation Providers: Sancho Thakur MD Referring MD: Manpreet Avila (Referring MD), Sepideh Cardenas (Referring MD), Pilo Casarez (Referring MD) Medicines: General Anesthesia Complications: No immediate complications. Estimated blood loss: Minimal. Procedure: After obtaining informed consent, the endoscope was passed under direct vision. Throughout the procedure, the patient's blood pressure, pulse, and oxygen saturations were monitored continuously. The Duodenoscope was introduced through the mouth, and used to inject contrast into and used to inject contrast into the bile duct. The ERCP was accomplished without difficulty. The patient tolerated the procedure well. Findings: Three 10F biliary stents were visible on the individual small group instructor film. The esophagus was successfully intubated under direct vision. The scope was advanced to the major papilla in the descending duodenum without detailed examination of the pharynx, larynx and associated structures, and upper GI tract. The upper GI tract was grossly normal. All three biliary stents were removed with rat toothed forceps. The bile duct was deeply cannulated with the 12 mm balloon and 0.035in Jagwire. Sludge and a small stone were successfully extracted along with purulent bile. Contrast was injected. I personally interpreted the bile duct images. Ductal flow of contrast was adequate. Image quality was adequate. Contrast extended to the bifurcation. The duct to duct anastomotic stricture was improved but still present. We then placed two 10F x 9cm plastic straight stents into the right hepatic donor duct and one 10F x 9cm plastic straight stents in the left hepatic donor duct. There was good drainage of contrast and bile at the end of the case. Impression: ERCP with removal of three 10F plastic stents Extraction of sludge and stone material Mild persistence of anastomotic stricture at the duct to duct anastomosis Placement of three new 10F biliary stents Recommendation: - Discharge patient to home. - repeat ERCP in 10-12 weeks - monitor for bleeding, infection, pancreatitis and perforation - augmentin x 3 days - liquids when awake Attending Participation: I personally performed the entire procedure. Sancho Thakur MD, [id number] 05/29/2025 9:42:14 AM The attending physician was present throughout the entire procedure. Number of Addenda: 0 Note Initiated On: 05/29/2025 9:06 AM us Manpreet Avila NP GI PROCEDURE ORDERABLES Final Result * ANES ETT DOUBLE LUMEN - AIRWAY LDA (05/29/2025 8:54 AM EDT) Narrative Wisam Oscar CRNA - 05/29/2025 8:54 AM EDT Wisam Oscar CRNA 05/29/2025 9:15 AM Airway Placement Procedure Note: Patient was not difficult to intubate. Procedure performed by: fellow/resident/MANAGER CLINICAL SERVICES Anesthesiologist: Evette Sotelo MD Fellow/Resident/MANAGER CLINICAL SERVICES: Wisam Oscar CRNA Airway procedure initiated at:05/29/2025 8:54 AM and ended at. Personal Protective Equipment: Mask: surgical mask Eye Protection: no eye protection Gloves: double gloves Gown: no gown Mask Ventilation: Quality: not attempted Airway Placement: Technique: video laryngoscopy Rapid sequence induction: yes Details: Blade type: Glidescope Blade size: LoPro S3 Video view: grade 1 Video Laryngoscopy was: elective Number of attempts: 1 ETT type: cuffed ETT size: 7.5 ETT depth at teeth: 23 ETT cuff inflation volume: 10 Tube position confirmed by: bilateral breath sounds and EtCO2 Outcomes: Evidence of dental injury? no Complications observed? no us Evette Sotelo MD NE ANESTHESIA Final Res ult * POCT Glucose (05/29/2025 8:24 AM EDT) Glucose, POCT 93 70 - 110 mg/dL [facility] 05/29/2025 8:24 AM EDT 05/29/2025 8:26 AM EDT Sancho Thakur MD POINT OF CARE TEST ORDERABLES F inal Result Performing Organization Address City/[facility]/ZIP Co de Phone Number [address] [phone] * Hepatitis C antibody, qualitative (09/04/2023 8:50 AM EDT) [facility] HCV ANTIBODY Negative Negative [facility] Comment:Antibodies to HCV no t detected. Does not exclude the possibility of exposure to HCV. 09/04/2023 8:50 AM EDT 09/04/2023 1:00 PM EDT Result [facility] Sepideh Cardenas MD LAB BLOOD ORDERABLES Final Resul t Performing Organization Address City/[facility] Co de Phone Number [address] [address] * COLONOSCOPY FOR RESULT ENTRY ONLY (09/28/2022) [facility] Colonoscopy Normal terminal ileum, Cecum and Descending colon : Scarred Mucosa, Ascending and transverse colon: Mild Patchy erythema, 6-8 mm sessile polyp in sigmoid colon, internal hemorrhoids in rectum, diverticular disease, Path: A. Small intestinal mucosa, Comment:B.Chronic inactive c olitis.C.Transverse colon biopsy:Chronic active colitis D.Colon,Sigmoid,polypectomy:Hyperplastic mucosal polyp.E.Biopsy:Focally active,proctitis.Done At [facility] Skye Jimenez MD HEALTH MAINTENANCE Edited Result - Final * (ABNORMAL) Lipid panel (12/27/2020 4:02 AM EST) [facility] HDL 49 35 - 100 mg/dL [facility] CHOLESTEROL 134 <200 mg/dL [facility] TRIGLYCERIDES 36(L) 40 - 150 mg/dL [facility] LDL 78 50 - 129 mg/dL [facility] CARDIAC RISK RATIO 2.7 0.0 - 5.0 [facility] NON-HDL CHOLESTEROL 85 mg/dL [facility] Comment:NCEP ATP III guideli kanika suggest a non-HDL cholesterol goal 30 mg/dl higher than the patient-specific LDL goal. Blood 12/27/2020 4:02 AM EST 12/27/2020 4:58 AM EST Rosaline Cai GRAIN PROCESSOR LAB BLOOD ORDERABL ES Final Result [address] [id number] from Last 3 Months or Most Recently Relevant to Health Maintenance Insurance MEDICARE A [facility] SHARED SERVICES MEDICARE A [facility] SHARED SERVICES MEDICARE A [facility] SHARED SERVICES MEDICARE A [facility] SHARED SERVICES MEDICARE A [facility] [place] [address] MED[facility]ARE A [facility] MEDIC[facility] A [employer] Advance Directives For more information, please contact: [phone] (9AM - 5PM [facility], Monday-Monday) Documents on File Type Date Recorded Patient [employer] Portal Architect Expl anation Healthcare Proxy 03/17/2021 4:57 PM * Full Code (Latest Code Status on File) Date Activated Date Inactivated Comments 07/18/2023 1:13 PM Question Answer Comments Code Status Confirmed With: Patient * Full Code Date Activated Date Inactivated Comments 12/25/2020 2:53 PM 07/18/2023 1:13 PM Question Answer Comments Code Status Confirmed With: Patient Care Teams Anthropology Department Chair Relationship Specialty Start Date End Date Manpreet Avila NP [address] [facility] [place] [address] PCP - General Family Medicine 12/29/20 Serina Peralta MD [address] [place] [address] [place] [address] Gastroenterology 04/06/22 Additional Source Comments The information contained in this document represents components of the legal health record. It is not the complete legal health record.[facility]
--- OUTSIDE RECORDS SUMMARY | 2025-07-16 08:59 | XMS_ITS | Encounter Summary ---
Author Organization [facility] Address [address] [place] [address] Phone Care Team Providers Care Fish Checker Name Role Phone Unknown, Unknown Primary Care Provider Manpreet Campbell NP Primary Care Provider + Clarita Loja MD Unavailable [phone] Serina Peralta MD Unavailable [phone] Encounter Details Date Type Department Care Team (Late st Contact Info) Description 12/25/2020 Procedure Pass [facility] [place] [place] Emergency Radiology, Main [address], Floor 1 [place] [address] Social History Tobacco Use Types Packs/Day Years [...] [facility] [place] [place] Trans[facility] Clinic 165 [facility] [address] [place] [address] Sepideh Cardenas MD 55 [facility] [address] [email or web address] 08/21/2025 7:30 AM EDT Pre-Admission Testing [facility] [place] [place] Pre-Procedure Evaluation Department Please [place] [address] Sancho Thakur MD 55 [address] [facility] 5 [place] [address] [email or web address] 09/02/2025 8:00 AM EDT Blood Draw [facility] [place] [place] Transplant Clinic [address] [address] Sepideh Cardenas MD [address] [address] [email or web address] 09/04/2025 Procedure Pass [facility] [place] [place] NORMA 4 ENDO DEPT 55 [facility], 4th [place] [address] 09/04/2025 8:00 AM EDT Hospital Encounter [facility] [place] [place] NORMA 4 ENDO DEPT 55 [address] [facility], 4th [place] [address] Sancho Thakur MD [address] [place] [address] [email or web address] 09/04/2025 8:00 AM EDT - 09/04/2025 9:30 AM EDT Surgery [facility] [place] [place] NORMA 4 ENDO DEPT 55 [address] [facility], 4th [place] [address] Sancho Thakur MD 55 [address] [facility] 5 [place] [address] [email or web address] ENDOSCOPIC RETROGRADE CHOLANGIOPANCREATOGRAPHY 09/29/2025 8:05 AM EST Blood Draw [facility] [place] [place] Transplant Clinic [address] [address] Sepideh Cardenas MD [address] [place] [address] [email or web address] 10/27/2025 8:00 AM EST Blood Draw [facility] [place] [place] Transplant Clinic [address] [address] Sepideh Cardenas MD [address] [place] [address] [email or web address] 11/03/2025 9:40 AM EST Office Visit [facility] [place] [place] Transplant Clinic [address] [place] [address] Sepideh Cardenas MD [address] [place] [address] [email or web address] Scheduled Procedures Name Priority Associated Diagnoses Date/Ti va ENDOSCOPIC RETROGRADE CHOLANGIOPANCREATOGRAPHY Encounter for pancreatic duct stent exchange 09/04/2025 8:00 AM EDT documented as of this encounter Visit Diagnoses Not on filedocumented in this encounter Additional Health Concerns Infection Onset Date Last Indicated Resolved Time CoV-Risk Comment:Per note documentation 12/23/2020 12/24/2020 5:21 PM EST CoV-Exposed Comment:Removed via automated background process based on negative test result 07/20/2023 07/20/2023 07/25/2023 8:33 PM E DT CoV-Exposed Comment:Patient exposed to a COVID-19 positive close contact during hospitalization at [facility] [place] [place] (H) on 07/30/2023. See infection control note dated 08/01/2023 for more information (this is posted as a documentation encounter which can be found under Chart Review>Encounters). 07/30/2023 08/01/2023 08/10/2023 1:22 AM E DT COVID-19 11/30/2023 11/30/2023 12/21/2023 1:25 AM EST documented as of this encounter Care Teams Fish Checker Relationship Specialty Start Date End Date Unknown, Unknown, PCP - General 12/23/20 12/28/20 Manpreet Avila NP [address] [place] [address] [place] [address] PCP - General Family Medicine 12/29/20 Clarita Loja MD [address] [place] [address] [place] [address] Gastroenterology 02/16/21 11/22/21 Serina Peralta MD [address] [place] [address] [place] [address] Gastroenterology 04/06/22 documented as of this encounter Additional Source Comments The information contained in this document represents components of the legal health record. It is not the complete legal health record.[facility]
[2025-07-16 09:00] VITALS: BP 102/66; PULSE 67; TEMP 36.6; O2SAT 98; BMI 37.6
--- NOTE | 2025-07-16 09:00 | AM.OFFWIN_ITS ---
Intake Vital Signs 07/16/25 09:00 Height 5 ft 8 in Weight 247 lb BMI 37.6 BP 102/66 Blood Pressure Location Lt brachial Position Sitting Pulse 67 Pulse Source Pulse Oximeter Temp 97.8 F Temp Source Oral Pulse Oximetry (%) 98 Oxygen Delivery Method Room Air Intake Visit Reasons: ep hives breakout 3-4 wks poss reaction to meds Intake Note: pt presents with itchy and hive like rash , started after Entyvio infusion (for UC) increased- notified GI office but concerns were never addressed Patient Tobacco Use Status: Current someday Tobacco user Allergies No Known Allergies (No Known Allergies*) Allergy (Verified 07/16/25 09:10) Do you need a note to return to daycare/school/sports/work: No HPI HPI Comments History of Present Illness Details History - The patient is a 59-year-old male pres enting with itchy hives all over his back and abdomen and lip swelling. - Urticaria began two to three weeks ago , with persistent symptoms. - Lip swelling was initially treated wit h prednisone, which resolved the swelling. - After that, itchy hives appeared on th e back after lip swelling subsided. - Aloe vera has been used for relief; no antihistamines taken. - History of ulcerative colitis had inje ction of skylera on 05/29, has been switched to stelara but hasn't gotten an injection yet. - Liver transplant recipient, currently on tacrolimus and prednisone 5mg daily. Physical Exam General: Cooperative, healthy appearing, comfortable, no acute distress and well developed Orientation: Patient oriented x3 Limitations: No limitations Head: Normal to inspection Ears: Hearing grossly normal bilaterally Nose: Normal External nose present Face and sinus: Normal facial exam Eyes: Appearance normal, both eyes and all related structures Neck: Normal visual inspection and Yes full ROM Respiratory: Normal respiratory effort and able to speak in complete sentences. 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 Surgical History S/P kyphoplasty Liver transplanted Hx of colonoscopy History of esophagogastroduodenoscopy (EGD) Family History Sister History of liver cancer Father Substance use disorder Social History Household Members: Spouse Household Members Other:: 2 Housing: House Are you a primary career technical counselor to a significant other at home: No Do you presently have visiting nurse or other home services: No Alcohol intake: never Comment: was medicated Patient Tobacco Use Status: Current someday Tobacco user Tobacco use type: Cigar e-Cigarette/Vaping Use: Never Used Second Hand Smoke Exposure: No Advance Directives Date on File: 12/31/21 service: No Current occupational status: disabled Cognitive needs: No Hearing needs: No Vision needs: No Review of Systems Const All systems reviewed & are unremarkable except as noted in HPI and below Physical Exam Vital Signs: Last Vital Signs Temp 97.8 F 07/16/25 09:00 Pulse 67 07/16/25 09:00 BP 102/66 07/16/25 09:00 Pulse Ox 98 07/16/25 09:00 Oxygen Delivery Method Room Air 07/16/25 09:00 BMI result Body Mass Index 37.6 Assessment & Plan Assessment & Plan (1) Urticaria: Code(s): L50.9 - Urticaria, unspecified Plan: Plan Patient was informed and verbally consented to the use of an ambient scribe for clinic note documentation during this visit. Urticaria - Hydroxyzine 10 mg every 8 hours, with the option for two tablets at night. - Pepcid 40 mg daily as an H2 selina. - Prednisone taper for 8 days starting at 40 mg, decreasing by 10 mg every two days. Lip Swelling - Prednisone was effective in resolving swelling. Liver Transplant - Maintain immunosuppressive regimen with tacrolimus and prednisone. (2) Allergic reaction: Code(s): T78.40XA - Allergy, unspecified, initial encounter Qualifiers: Encounter type: initial encounter Qualified Code(s): T78.40XA - Allergy, unspecified, initial encounter Plan: as above Medications: New prednisone take 4 tablets on days 1-2, take 3 tablets on days 3-4, take 2 tablets on days 5-6, take 1 tablet on days 7-8. 10 mg PO DIRECTED 20 tabs 0RF famotidine (Pepcid) 40 mg PO DAILY 30 tabs 0RF hydroxyzine HCl 10 mg PO Q8H 30 tabs 0RF Coding Level of Care Code Est Pt Level 3 (37585) Diagnoses Urticaria L50.9 Allergic reaction, initial encounter T78.40XA Encounter type: initial encounter
--- OUTSIDE RECORDS SUMMARY | 2025-07-16 09:00 | XMS_ITS | Encounter Summary ---
Author Organization [facility] Address [address] [place] [address] Phone Care Team Providers Care Refrigerator Car Icer Name Role Phone Manpreet Avila NP Primary Care Provider + Serina Peralta MD Unavailable [phone] Encounter Details Date Type Department Care Team (Late st Contact Info) Description 07/11/2025 Refill [facility] Transplant Clinic [address] [place] [address] [address] Dinah Gonzalez, [place] 55 [place] [address] [email or web address] Social History Tobacco Use Types Packs/Day Years [...] AM EDT documented as of this encounter Progress Notes * Dinah Gonzalez RN - 07/11/2025 8:53 AM EDT Call placed to discuss lab results. Confirmed true tacrolimus trough. Per Carissa Nguyen NP, increase Tacrolimus to 3 mg twice daily (from 2 mg BID) and repeat labs on Monday. Patient reports that he has been off Ursodiol for months since pharmacy told him prescription was cancelled. Will call pharmacy to confirm they have active order so patient can restart TRINA. He verbalized understanding. Call placed to [facility] and confirmed they have active order and have medication in stock to fill. documented in this encounter Plan of Treatment Upcoming Encounters Date Type Department Care Team (Latest Contact Info) Description 07/28/2025 8:05 AM EDT Blood Draw [facility] Transplant Clinic [address] [place] [address] Sepideh Cardenas MD [address] [place] [address] [email or web address] 08/21/2025 7:30 AM EDT Pre-Admission Testing [facility] Pre-Procedure Evaluation Department Please [place] [address] Sancho Thakur MD [address] [address] [email or web address] 09/02/2025 8:00 AM EDT Blood Draw [facility] Transplant Clinic [address] [place] [address] Sepideh Cardenas MD [address] [address] [email or web address] 09/04/2025 Procedure Pass [facility] NOR[facility] 4 ENDO DEPT 55 [facility], [address] [place] [address] 09/04/2025 8:00 AM EDT Hospital Encounter [facility] NOR[facility] 4 ENDO DEPT 55 [facility], [address] [place] [address] Sancho Thakur MD [address] [place] [address] [email or web address] 09/04/2025 8:00 AM EDT - 09/04/2025 9:30 AM EDT Surgery [facility] NOR[facility] 4 ENDO DEPT 55 [facility], [address] [place] [address] Sancho Thakur MD [address] [place] [address] [email or web address] ENDOSCOPIC RETROGRADE CHOLANGIOPANCREATOGRAPHY 09/29/2025 8:05 AM EST Blood Draw [facility] Transplant Clinic [address] [place] [address] Sepideh Cardenas MD [address] [address] [email or web address] 10/27/2025 8:00 AM EST Blood Draw [facility] Transplant Clinic [address] [address] Sepideh Cardenas MD [address] [address] [email or web address] 11/03/2025 9:40 AM EST Office Visit [facility] Transplant Clinic [address] [address] Sepideh Cardenas MD [address] [address] [email or web address] Scheduled Procedures Name Priority Associated Diagnoses Date/Ti nh ENDOSCOPIC RETROGRADE CHOLANGIOPANCREATOGRAPHY Encounter for pancreatic duct stent exchange 09/04/2025 8:00 AM EDT documented as of this encounter Visit Diagnoses Diagnosis S/P liver transplant Immunosuppression Encounter for pancreatic duct stent exchange documented in this encounter Care Teams Refrigerator Car Icer Relationship Specialty Start Date End Date Manpreet Avila NP [address] [place] [address] PCP - General Family Medicine 12/29/20 Serina Peralta MD [address] [place] [address] [place] [address] Gastroenterology 04/06/22 documented as of this encounter Additional Source Comments The information contained in this document represents components of the legal health record. It is not the complete legal health record.[facility]
--- OUTSIDE RECORDS SUMMARY | 2025-07-16 09:00 | XMS_ITS | Encounter Summary ---
Author Organization [facility] Address [address] [place] [address] Phone Care Team Providers Care Assistant Tennis Coach Name Role Phone Manpreet Avila NP Primary Care Provider + Serina Peralta MD Unavailable [phone] Encounter Details Date Type Department Care Team (Late st Contact Info) Description 08/31/2022 Procedure Pass [facility], [address] [address] Social History Tobacco Use Types Packs/Day Years Used Date Smoking Tobacco: Never Smokeless Tobacco: Never Alcohol Use Standard Drinks/Week Comments Not Currently 0 (1 standard drink = 0.6 oz pur e alcohol) Quit August 2020 Sex and Gender Information Value Date Recorded Sex Assigned at Male 05/19/2021 9:32 AM EDT Legal Sex Male 11:49 AM EST Gender Identity Male 05/19/2021 9:32 AM EDT Sexual Orientation Straight 05/19/2021 9: 32 AM EDT documented as of this encounter Plan of Treatment Upcoming Encounters Date Type Department Care Team (Latest Contact Info) Description 07/28/2025 8:05 AM EDT Blood Draw [facility] Transplant Clinic 165 [facility] [address] [place] [address] Sepideh Cardenas MD 55 [facility] [address] [email or web address] 08/21/2025 7:30 AM EDT Pre-Admission Testing [facility] Pre-Procedure Evaluation Department [place] [address] Sancho Thakur MD 55 [address] [facility] 5 [place] [address] [email or web address] 09/02/2025 8:00 AM EDT Blood Draw [facility] Transplant Clinic 165 [facility] 301 [place] [address] Sepideh Cardenas MD [address] [address] [email or web address] 09/04/2025 Procedure Pass [facility] 4 ENDO DEPT 55 [facility], 4th [place] [address] 09/04/2025 8:00 AM EDT Hospital Encounter [facility] NORMA 4 ENDO DEPT 55 [address] [facility], 4th [place] [address] Sancho Thakur MD [address] [address] [email or web address] 09/04/2025 8:00 AM EDT - 09/04/2025 9:30 AM EDT Surgery [facility] 4 ENDO DEPT 55 [address] [facility], 4th [place] [address] Sacnho Thakur MD 55 [address] [facility] 5 [place] [address] [email or web address] ENDOSCOPIC RETROGRADE CHOLANGIOPANCREATOGRAPHY 09/29/2025 8:05 AM EST Blood Draw [facility] Transplant Clinic [address] [address] Sepideh Cardenas MD [address] [place] [address] [email or web address] 10/27/2025 8:00 AM EST Blood Draw [facility] Transplant Clinic [address] [place] [address] Sepideh Cardenas MD [address] [place] [address] [email or web address] 11/03/2025 9:40 AM EST Office Visit [facility] Transplant Clinic [address] [place] [address] Sepideh Cardenas MD [address] [place] [address] [email or web address] Scheduled Procedures Name Priority Associated Diagnoses [...] COVID-19 positive close contact during hospitalization at [facility] (H) on 07/30/2023. See infection control note dated 08/01/2023 for more information (this is posted as a documentation encounter which can be found under Chart Review>Encounters). 07/30/2023 08/01/2023 08/10/2023 1:22 AM E DT COVID-19 11/30/2023 11/30/2023 12/21/2023 1:25 AM EST documented as of this encounter Care Teams Assistant Tennis Coach Relationship Specialty Start Date End Date Manpreet Avila NP [address] [place] [address] [place] [address] PCP - General Family Medicine 12/29/20 Serina Peralta MD [address] [place] [address] [place] [address] Gastroenterology 04/06/22 documented as of this encounter Additional Source Comments The information contained in this document represents components of the legal health record. It is not the complete legal health record.[facility]
--- OUTSIDE RECORDS SUMMARY | 2025-07-16 09:00 | XMS_ITS | Encounter Summary ---
Author Organization [facility] Address [address] [place] [address] Phone Care Team Providers Care Residential Sales Manager Name Role Phone Manpreet Avila NP Primary Care Provider + Serina Peralta MD Unavailable [phone] Encounter Details Date Type Department Care Team (Late st Contact Info) Description 11/22/2022 Ancillary Orders [facility] Imaging [address] [place] [address] Edgar Rodriguez MD 55 [facility] 456 [place] [address] [email or web address] Abnormal finding on imaging Social History [...] Description 07/28/2025 8:05 AM EDT Blood Draw [facility] Transplant Clinic [address] [place] [address] Sepideh Cardenas MD 55 [address] [facility]-[address] [place] [address] [email or web address] 08/21/2025 7:30 AM EDT Pre-Admission Testing [facility] Pre-Procedure Evaluation Department [place] [address] Sancho Thakur MD [address] [email or web address] 09/02/2025 8:00 AM EDT Blood Draw [facility] Transplant [facility] [address] [place] [address] Sepideh Cardenas MD 55 [facility]-[address] [place] [address] [email or web address] 09/04/2025 Procedure Pass [facility] NOR[facility] 4 ENDO DEPT 55 [address] [facility], 4th [place] [address] 09/04/2025 8:00 AM EDT Hospital Encounter [facility] NOR[facility] 4 ENDO DEPT [address] [facility], 4th [place] [address] Sancho Thakur MD [address] [place] [address] [place] [address] [email or web address] 09/04/2025 8:00 AM EDT - 09/04/2025 9:30 AM EDT Surgery [facility] NOR[facility] 4 ENDO DEPT [address] [facility], 4th [place] [address] Sancho Thakur MD [address] [place] 5 [place] [address] [email or web address] ENDOSCOPIC RETROGRADE CHOLANGIOPANCREATOGRAPHY 09/29/2025 8:05 AM EST Blood Draw [facility] Transplant Clinic [address] [address] Sepideh Cardenas MD [address] [place] [address] [email or web address] 10/27/2025 8:00 AM EST Blood Draw [facility] Transplant [facility] [address] [address] Sepideh Cardenas MD [address] [place] [address] [email or web address] 11/03/2025 9:40 AM EST Office Visit [facility] Transplant [facility] [address] [address] Sepideh Cardenas MD [address] [place] [address] [email or web address] Scheduled Procedures Name Priority Associated Diagnoses Date/Ti tx ENDOSCOPIC RETROGRADE CHOLANGIOPANCREATOGRAPHY Encounter for pancreatic duct stent exchange 09/04/2025 8:00 AM EDT documented as of this encounter Results * MRI Abdomen Outside With Interpretation Or Consult (09/21/2022 12:00 AM EDT) 11/23/2022 4:55 PM EST Impressions [facility] - 11/23/2022 5:11 PM EST Technically suboptimal study. Cirrhotic morphology without suspicious hepatic lesion. Stable changes of PSC with no dominant stricture or enhancing mass Narrative [facility] - 11/23/2022 5:11 PM EST MRI ABDOMEN OUTSIDE WITH INTERPRETATION OR CONSULT TECHNIQUE: MR of the abdomen dated 09/21/2022 was performed without followed by with intravenous extracellular contrast. COMPARISON: 03/10/2022 FINDINGS: Images degraded by motion artifacts Liver: Cirrhotic morphology with numerous T2 hypointense lesions (series 4) some which are also T1 hyperintense compatible with dysplastic nodules. Bile-ducts: Stable appearance of segmental intra-hepatic ductal dilatation and narrowing compatible with PSC. No dominant stricture or enhancing lesion. Solitary gallstone. Spleen: No splenomegaly or focal lesions. Adrenal Glands: No nodules. Kidneys/Ureters: No solid masses or hydronephrosis. Subcentimeter left kidney cyst. Pancreas: No masses or ductal dilatation. Bowel/Peritoneum: No distention. Gastric fundal wall thickening likely due to PPI use. Lymph Nodes/Retroperitoneum: No lymphadenopathy. Vessels: Replaced/accessory hepatic artery (1001:30). Bones/Soft Tissues: No destructive osseous lesions. Lower Chest: Clear lung bases. Moderate right pleural effusion. Procedure Note Karl Sawyer MD - 11/23/2022 MRI ABDOMEN OUTSIDE WITH INTERPRETATION OR CONSULT TECHNIQUE: MR of the abdomen dated 09/21/2022 was performed withoutfollowed by with intravenous extracellular contrast. COMPARISON: 03/10/2022 FINDINGS: Images degraded by motion artifacts Liver: Cirrhotic morphology with numerous T2 hypointense lesions (series4) some which are also T1 hyperintense compatible with dysplasticnodules. Bile-ducts: Stable appearance of segmental intra-hepatic ductal dilatationand narrowing compatible with PSC. No dominant stricture or enhancinglesion. Solitary gallstone. Spleen: No splenomegaly or focal lesions. Adrenal Glands: No nodules. Kidneys/Ureters: No solid masses or hydronephrosis. Subcentimeter leftkidney cyst. Pancreas: No masses or ductal dilatation. Bowel/Peritoneum: No distention. Gastric fundal wall thickening likely dueto PPI use. Lymph Nodes/Retroperitoneum: No lymphadenopathy. Vessels: Replaced/accessory hepatic artery (1001:30). Bones/Soft Tissues: No destructive osseous lesions. Lower Chest: Clear lung bases. Moderate right pleural effusion. IMPRESSION: Technically suboptimal study. Cirrhotic morphology without suspicious hepatic lesion. Stable changes of PSC with no dominant stricture or enhancing mass us Edgar Rodriguez MD IMG OUTSIDE IMAGING W/ I NTERPRETATION Final Result [address] [address] documented in this encounter Visit Diagnoses Diagnosis [...] COVID-19 positive close contact during hospitalization at [facility] (H) on 07/30/2023. See infection control note dated 08/01/2023 for more information (this is posted as a documentation encounter which can be found under Chart Review>Encounters). 07/30/2023 08/01/2023 08/10/2023 1:22 AM E DT COVID-19 11/30/2023 11/30/2023 12/21/2023 1:25 AM EST documented as of this encounter Care Teams Residential Sales Manager Relationship Specialty Start Date End Date Manpreet Avila NP [address] [place] [address] [place] [address] PCP - General Family Medicine 12/29/20 Serina Peralta MD [address] [place] [address] [place] [address] Gastroenterology 04/06/22 documented as of this encounter Additional Source Comments The information contained in this document represents components of the legal health record. It is not the complete legal health record.[facility]
--- OUTSIDE RECORDS SUMMARY | 2025-07-16 09:00 | XMS_ITS | Encounter Summary ---
Author Organization [facility] Address [address] [place] [address] Phone Care Team Providers Care Milk Route Supervisor Name Role Phone Manpreet Avila NP Primary Care Provider + Serina Peralta MD Unavailable [phone] Encounter Details Date Type Department Care Team (Late st Contact Info) Description 10/05/2023 Procedure Pass [facility] 4 ENDO DEPT 55 [facility], 4th [place] [address] Social History Tobacco Use Types Packs/Day Years [...] Description 07/28/2025 8:05 AM EDT Blood Draw [facility] [address] [address] Sepideh Cardenas MD [address] [place] [phone] [email or web address] 08/21/2025 7:30 AM EDT Pre-Admission Testing [facility] Pre-Procedure Evaluation Department Please [place] [address] Sancho Thakur MD [address] [place] [phone] [email or web address] 09/02/2025 8:00 AM EDT Blood Draw [facility] Trans[facility] Clinic [address] [place] [address] Sepideh Cardenas MD [address] [place] [phone] [email or web address] 09/04/2025 Procedure Pass [facility] 4 ENDO DEPT 55 [facility], 4th [place] [address] 09/04/2025 8:00 AM EDT Hospital Encounter [facility] 4 ENDO DEPT 55 [facility], 4th [place] [address] Sancho Thakur MD [address] [place] [phone] [email or web address] 09/04/2025 8:00 AM EDT - 09/04/2025 9:30 AM EDT Surgery [facility] 4 ENDO DEPT 55 [facility], 4th [place] [address] Sancho Thakur MD [address] [place] [phone] [email or web address] [email or web address] RETROGRADE [email or web address] 09/29/2025 8:05 AM EST Blood Draw [facility] [address] [address] Sepideh Cardenas MD [address] [place] [phone] [email or web address] 10/27/2025 8:00 AM EST Blood Draw [facility] Trans[facility] [address] [place] [address] Sepideh Cardenas MD [address] [place] [phone] [email or web address] 11/03/2025 9:40 AM EST Office Visit [facility] Trans[facility] Clinic [address] [place] [address] Sepideh Cardenas MD [address] [place] [phone] [email or web address] Scheduled Procedures Name Priority Associated Diagnoses Date/Ti tx ENDOSCOPIC RETROGRADE CHOLANGIOPANCREATOGRAPHY Encounter for pancreatic duct stent exchange 09/04/2025 8:00 AM EDT documented as of this encounter Visit Diagnoses Not on filedocumented in this encounter Additional Health Concerns Infection Onset Date Last Indicated Resolved Time COVID-19 11/30/2023 11/30/2023 12/21/2023 1:25 AM EST documented as of this encounter Care Teams Milk Route Supervisor Relationship Specialty Start Date End Date Manpreet Avila NP [address] [facility] [place] [address] PCP - General Family Medicine 12/29/20 Serina Peralta MD [address] [place] [address] [place] [address] Gastroenterology 04/06/22 documented as of this encounter Additional Source Comments The information contained in this document represents components of the legal health record. It is not the complete legal health record.[facility]
--- OUTSIDE RECORDS SUMMARY | 2025-07-16 09:00 | XMS_ITS | Encounter Summary ---
Author Organization [facility] Address [address] [place] [address] Phone Care Team Providers Care House Sitter Name Role Phone Manpreet Avila NP Primary Care Provider + Serina Peralta MD Unavailable [phone] Encounter Details Date Type Department Care Team (Late st Contact Info) Description 09/21/2022 Ancillary Orders Non-Invasive Cardiology 30 [place] [address] Rosario Adame PA-C [address] [place] [address] [email or web address] Social History Tobacco Use Types Packs/Day Years [...] 07/28/2025 8:05 AM EDT Blood Draw [facility] 165 [facility] [address] [place] [address] Sepideh Cardenas MD [address] [facility] [place] [address] [email or web address] 08/21/2025 7:30 AM EDT Pre-Admission Testing [facility] Pre-Procedure Evaluation Department Please [place] [address] Sancho Thakur MD [address] [email or web address] 09/02/2025 8:00 AM EDT Blood Draw [facility] 165 [facility] [address] [place] [address] Sepideh Cardenas MD [address] [facility] [place] [address] [email or web address] 09/04/2025 Procedure Pass [facility] 4 ENDO DEPT [address] [facility], [address] [place] [address] 09/04/2025 8:00 AM EDT Hospital Encounter [facility] 4 ENDO DEPT [address] [facility], [address] [place] [address] Sancho Thakur MD [address] [address] [email or web address] 09/04/2025 8:00 AM EDT - 09/04/2025 9:30 AM EDT Surgery [facility] 4 ENDO DEPT [address] [facility], [address] [place] [address] Sancho Thakur MD [address] [facility] 5 [place] [address] [email or web address] ENDOSCOPIC RETROGRADE CHOLANGIOPANCREATOGRAPHY 09/29/2025 8:05 AM EST Blood Draw [facility] [address] [address] Sepideh Cardenas MD [address] [place] [phone] [email or web address] 10/27/2025 8:00 AM EST Blood Draw [facility] [address] [address] Sepideh Cardenas MD [address] [place] [phone] [email or web address] 11/03/2025 9:40 AM EST Office Visit [facility] [address] [address] Sepideh Cardenas MD [address] [place] [address] [email or web address] Scheduled Procedures Name Priority Associated Diagnoses Date/Ti ny ENDOSCOPIC RETROGRADE CHOLANGIOPANCREATOGRAPHY Encounter for pancreatic duct [...] positive close contact during hospitalization at [facility] (H) on 07/30/2023. See infection control note dated 08/01/2023 for more information (this is posted as a documentation encounter which can be found under Chart Review>Encounters). 07/30/2023 08/01/2023 08/10/2023 1:22 AM E DT COVID-19 11/30/2023 11/30/2023 12/21/2023 1:25 AM EST documented as of this encounter Care Teams House Sitter Relationship Specialty Start Date End Date Manpreet Avila NP [facility] [place] [address] PCP - General Family Medicine 12/29/20 Serina Peralta MD [address] [place] [address] [place] [address] Gastroenterology 04/06/22 documented as of this encounter Additional Source Comments The information contained in this document represents components of the legal health record. It is not the complete legal health record.[facility]
--- OUTSIDE RECORDS SUMMARY | 2025-07-16 09:00 | XMS_ITS | Encounter Summary ---
Author Organization [facility] Address [address] [place] [address] Phone Care Team Providers Care Powder Coat Painter Name Role Phone Manpreet Avila NP Primary Care Provider + Serina Peralta MD Unavailable [phone] Encounter Details Date Type Department Care Team (Late st Contact Info) Description 07/15/2025 Orders Only [facility] [address] [place] [address] Sepideh Cardenas MD [address] [place] [phone] [email or web address] Social History Tobacco Use Types Packs/Day Years [...] Description 07/28/2025 8:05 AM EDT Blood Draw [facility] [address] [place] [address] Sepideh Cardenas MD [address] [place] [address] [email or web address] 08/21/2025 7:30 AM EDT Pre-Admission Testing [facility] Pre-Procedure Evaluation Department Please See [place]oint[place] [address] Sancho Thakur MD [address] [place] [phone] [email or web address] 09/02/2025 8:00 AM EDT Blood Draw [facility] [address] [address] Sepideh Cardenas MD [address] [place] [phone] [email or web address] 09/04/2025 Procedure Pass [facility] 4 ENDO DEPT [address] [facility], [address] [place] [address] 09/04/2025 8:00 AM EDT Hospital Encounter [facility] 4 ENDO DEPT [address] [facility], [address] [place] [address] Sancho Thakur MD [address] [facility] 5 [place] [address] [email or web address] 09/04/2025 8:00 AM EDT - 09/04/2025 9:30 AM EDT Surgery [facility] 4 ENDO DEPT [address] [facility], [address] [place] [address] Sancho Thakur MD [address] [address] [email or web address] ENDOSCOPIC RETROGRADE CHOLANGIOPANCREATOGRAPHY 09/29/2025 8:05 AM EST Blood Draw [facility] [address] [place] [address] Sepideh Cardenas MD [address] [place] [phone] [email or web address] 10/27/2025 8:00 AM EST Blood Draw [facility] [address] [address] Sepideh Cardenas MD [address] [address] [email or web address] 11/03/2025 9:40 AM EST Office Visit [facility] [address] [address] Sepideh Cardenas MD [address] [place] [address] [phone] [place] [address] [email or web address] Scheduled Procedures Name Priority Associated Diagnoses Date/Ti hi ENDOSCOPIC RETROGRADE CHOLANGIOPANCREATOGRAPHY Encounter for pancreatic duct stent exchange 09/04/2025 8:00 AM EDT documented as of this encounter Procedures Procedure Name Priority Date/Time Associated Diagnosis Comments COMPREHENSIVE METABOLIC PANEL Routine 07/15/2025 8:13 AM EDT CBC AND DIFFERENTIAL Routine 07/15/2025 8:13 AM EDT PHOSPHORUS Routine 07/15/2025 8:13 AM EDT MAGNESIUM Routine 07/15/2025 8:13 AM EDT BILIRUBIN, DIRECT Routine 07/15/2025 8:1 3 AM EDT documented in this encounter Results * (ABNORMAL) Comprehensive metabolic panel (07/15/2025 8:13 AM EDT) Glucose 102(H) 65 - 99 mg/dL [facility] [place] [employer] Comment: Fasting reference interval For someone without known diabetes, a glucose value between 100 and 125 mg/dL is consistent with prediabetes and should be confirmed with a follow-up test. Urea Nitrogen (BUN) 21 7 - 25 mg/dL [facility] [place] [employer] Creatinine 1.38(H) 0.70 - 1.30 mg/dL [facility] [place] [employer] EGFR 59(L) > OR = 60 mL/min/1. 73m2 [facility] [place] [employer] BUN/Creatinine Ratio 15 6 - 22 (calc) [facility] [place] [employer] Sodium 137 135 - 146 mmol/L [facility] [place] [employer] Potassium 4.7 3.5 - 5.3 mmol/L [facility] [place] [employer] Chloride 110 98 - 110 mmol/L [facility] [place] [employer] Carbon Dioxide 21 20 - 32 mmol/L [facility] [place] [employer] Calcium 8.7 8.6 - 10.3 mg/dL [facility] [place] [employer] Protein, Total 6.4 6.1 - 8.1 g/dL [facility] [place] [facility] Albumin 3.6 3.6 - 5.1 g/dL [facility] [employer] [place] [facility] Globulin 2.8 1.9 - 3.7 g/dL (calc) [facility] [place] [employer] Albumin/Globuli n Ratio 1.3 1.0 - 2.5 (calc) [facility] [place] [employer] Bilirubin, Total 0.3 0.2 - 1.2 mg/dL [facility] [place] [employer] Alkaline Phosphatase 225(H) 35 - 144 U/L [facility] [place] [employer] AST 23 10 - 35 U/L [facility] [place] [employer] ALT 36 9 - 46 U/L [facility] [place] [employer] 07/15/2025 8:13 AM EDT 07/15/2025 8:14 AM EDT Narrative [employer] [facility] 07/16/2025 4:08 AM EDT FASTING:YES FASTING: YES us Sepideh Cardenas MD LAB BLOOD ORDERABLES Final Resul t Performing Organization Address [facility] de Phone Number [employer] [address] [address], [facility] [phone] [facility] [address] * Phosphorus (07/15/2025 8:13 AM EDT) Phosphate ( Phosphorus) 3.6 2.5 - 4.5 mg/dL [facility] [place] [employer] 07/15/2025 8:13 AM EDT 07/15/2025 8:14 AM EDT Narrative [employer] [facility] 07/16/2025 4:08 AM EDT FASTING:YES FASTING: YES us Sepideh Cardenas MD LAB BLOOD ORDERABLES Final Resul t Performing Organization Address [facility] Co de Phone Number [employer] [address] [place] [address], [facility] [phone] [facility] [place] [employer] [address] [place] [phone] * Magnesium (07/15/2025 8:13 AM EDT) Magnesium 1.9 1.5 - 2.5 mg/dL [facility] [place] [employer] 07/15/2025 8:13 AM EDT 07/15/2025 8:14 AM EDT Narrative [employer] [facility] - 07/16/2025 4:08 AM EDT FASTING:YES FASTING: YES us Sepideh Cardenas MD LAB BLOOD ORDERABLES Final Resul t Performing Organization Address [facility] Co de Phone Number [employer] [address] [address], [facility] [phone] [employer] [place] [employer] [address] [place] [phone] * Bilirubin, direct (07/15/2025 8:13 AM EDT) Bilirubin, direct 0.1 < OR = 0.2 mg/dL [facility] [place] [employer] 07/15/2025 8:13 AM EDT 07/15/2025 8:14 AM EDT Narrative [employer] [facility] - 07/16/2025 4:08 AM EDT FASTING:YES FASTING: YES us Sepideh Cardenas MD LAB BLOOD ORDERABLES Final Resul t Performing Organization Address City/[facility]/ZIP Co de Phone Number [employer] [address],[place] [address], [facility] [phone] [facility] [place] [employer] [address] [place] [phone] * (ABNORMAL) CBC and differential (07/15/2025 8:13 AM EDT) WBC 3.1(L) 3.8 - 10.8 Thousand/ uL [facility] [place] [facility] Red Blood Cell 4.39 4.20 - 5.80 Million/u L [facility] Hemoglobin 12.8(L) 13.2 - 17.1 g/dL [facility] Hematocrit 41.6 38.5 - 50.0 % [facility] MCV 94.8 80.0 - 100.0 fL [facility] MCH 29.2 27.0 - 33.0 pg [facility] MCHC 30.8(L) 32.0 - 36.0 g/dL [facility] [employer] Comment: For adults, a slight decrease in the calculated MCHC value (in the range of 30 to 32 g/dL) is most likely not clinically significant; however, it should be interpreted with caution in correlation with other red cell parameters and the patient's clinical condition. RDW 13.2 11.0 - 15.0 % [facility] [place] [employer] Platelet Count 286 140 - 400 Thousand/ uL [facility] [place] [employer] MPV 9.7 7.5 - 12.5 fL [facility] [employer] Absolute Neutrophils 1,206(L) 1,500 - 7,800 cells/uL [facility] [place] [employer] Absolute Lymphocytes 1,327 850 - 3,900 cells/uL [facility] [place] [employer] Absolute Monocytes 347 200 - 950 cells/uL [facility] [employer] [place] [employer] Absolute Eosinophils 189 15 - 500 cells/uL [facility] [place] [employer] Absolute Basophils 31 0 - 200 cells/uL [facility] [place] [employer] Neutrophils 38.9 % [facility] Lymphocytes 42.8 % [facility] Monocytes 11.2 % [facility] Eosinophils 6.1 % [facility] [place] [employer] Basophils 1.0 % [facility] [place] [employer] 07/15/2025 8:13 AM EDT 07/15/2025 8:14 AM EDT Narrative [facility] [employer] [facility] 07/16/2025 4:08 AM EDT FASTING:YES FASTING: YES Sepideh Cardenas MD LAB BLOOD ORDERABLES Final Resul t [facility] [address] [facility] [address] [address], [facility] [phone] [facility] [address] [place] [address] documented in this encounter Visit Diagnoses Not on filedocumented in this encounter Care Teams Powder Coat Painter Relationship Specialty Start Date End Date Manpreet Avila NP [facility] [address] PCP - General Family Medicine 12/29/20 Serina Peralta MD [address] [place] [address] [place] [address] Gastroenterology 04/06/22 documented as of this encounter Additional Source Comments The information contained in this document represents components of the legal health record. It is not the complete legal health record.[facility]
--- OUTSIDE RECORDS SUMMARY | 2025-07-16 09:00 | XMS_ITS | Encounter Summary ---
Author Organization [facility] Address [address] [place] [address] Phone Care Team Providers Care Radioisotope Technician Name Role Phone Manpreet Avila NP Primary Care Provider + Clarita Loja MD Unavailable [phone] Serina Peralta MD Unavailable [phone] Encounter Details Date Type Department Care Team (Late st Contact Info) Description 03/12/2021 Transcribe Orders [facility] Laboratory [address] [place] [address] Rosario Adame PA-C [address] [place] [address] [email or web address] Social History Tobacco Use Types Packs/Day Years [...] 07/28/2025 8:05 AM EDT Blood Draw [facility] [address] [place] [address] Sepideh Cardenas MD [address] [facility] [address] [address] [email or web address] 08/21/2025 7:30 AM EDT Pre-Admission Testing [facility] Pre-Procedure Evaluation Department Please [place] [address] Sancho Thakur MD [address] [email or web address] 09/02/2025 8:00 AM EDT Blood Draw [facility] [address] [address] Sepideh Cardenas MD [address] [address] [email or web address]@[email or web address] 09/04/2025 Procedure Pass [facility] 4 ENDO DEPT [address] [facility], [address] [place] [address] 09/04/2025 8:00 AM EDT Hospital Encounter [facility] [address] END[address] [facility], 4th [place] [address] Sancho Thakur MD [address] [address] [email or web address] 09/04/2025 8:00 AM EDT - 09/04/2025 9:30 AM EDT Surgery [facility] 4 ENDO DE[address] [facility], [address] [place] [address] Sancho Thakur MD [address] [place] [address] 5 [place] [address] [email or web address] ENDOSCOPIC RETROGRADE CHOLANGIOPANCREATOGRAPHY 09/29/2025 8:05 AM EST Blood Draw [facility] [address] [address] Sepideh Cardenas MD [address] [place] [address] [email or web address] 10/27/2025 8:00 AM EST Blood Draw [facility] [address] [address] Sepideh Cardenas MD [address] [place] [address] [email or web address] 11/03/2025 9:40 AM EST Office Visit [facility] [address] [address] Sepideh Cardenas MD [address] [place] [address] [email or web address] Scheduled Procedures Name Priority Associated Diagnoses Date/Ti fl ENDOSCOPIC RETROGRADE CHOLANGIOPANCREATOGRAPHY Encounter for pancreatic duct [...] positive close contact during hospitalization at [facility] (H) on 07/30/2023. See infection control note dated 08/01/2023 for more information (this is posted as a documentation encounter which can be found under Chart Review>Encounters). 07/30/2023 08/01/2023 08/10/2023 1:22 AM E DT COVID-19 11/30/2023 11/30/2023 12/21/2023 1:25 AM EST documented as of this encounter Care Teams Radioisotope Technician Relationship Specialty Start Date End Date Manpreet Avila NP [address] [facility] [place] [address] PCP - General Family Medicine 12/29/20 Clarita Loja MD [address] [place] [address] [place] [address] Gastroenterology 02/16/21 11/22/21 Serina Peralta MD [address] [place] [address] [place] [address] Gastroenterology 04/06/22 documented as of this encounter Additional Source Comments The information contained in this document represents components of the legal health record. It is not the complete legal health record.[facility]
--- OUTSIDE RECORDS SUMMARY | 2025-07-16 09:00 | XMS_ITS | Encounter Summary ---
Author Organization [facility] Address [address] [place] [address] Phone Care Team Providers Care Early Childhood Worker Name Role Phone Manpreet Avila NP Primary Care Provider + Serina Peralta MD Unavailable [phone] Encounter Details Date Type Department Care Team (Late st Contact Info) Description 08/23/2023 Procedure Pass [facility] 4 ENDO DEPT 55 [facility], 4th [place] [address] Social History Tobacco Use Types Packs/Day Years [...] [facility] [address] [address] Sepideh Cardenas MD [address] [place] [address] [email or web address] 08/21/2025 7:30 AM EDT Pre-Admission Testing [facility] Pre-Procedure Evaluation Department [place] [address] Sancho Thakur MD [address] [place] [address] [email or web address] 09/02/2025 8:00 AM EDT Blood Draw [facility] [address] [place] [address] Sepideh Cardenas MD [address] [place] [phone] [email or web address] 09/04/2025 Procedure Pass [facility] 4 ENDO DEPT 55 [facility], 4th [place] [address] 09/04/2025 8:00 AM EDT Hospital Encounter [facility] 4 ENDO DEPT 55 [facility], 4th [place] [address] Sancho Thakur MD [address] [place] [phone] [email or web address] 09/04/2025 8:00 AM EDT - 09/04/2025 9:30 AM EDT Surgery [facility] 4 ENDO DEPT 55 [facility], 4th [place] [address] Sancho Thakur MD [address] [place] [address] [email or web address] ENDOSCOPIC RETROGRADE CHOLANGIOPANCREATOGRAPHY 09/29/2025 8:05 AM EST Blood Draw [facility] [address] [address] Sepideh Cardenas MD [address] [place] [phone] [email or web address] 10/27/2025 8:00 AM EST Blood Draw [facility] [address] [place] [address] Sepideh Cardenas MD [address] [place] [address] [email or web address] 11/03/2025 9:40 AM EST Office Visit [facility] [address] [place] [address] Sepideh Cardenas MD [address] [place] [address] [email or web address]@[email or web address] Scheduled Procedures Name Priority Associated Diagnoses Date/Ti ar ENDOSCOPIC RETROGRADE CHOLANGIOPANCREATOGRAPHY Encounter for pancreatic duct stent exchange 09/04/2025 8:00 AM EDT documented as of this encounter Visit Diagnoses Not on filedocumented in this encounter Additional Health Concerns Infection Onset Date Last Indicated Resolved Time COVID-19 11/30/2023 11/30/2023 12/21/2023 1:25 AM EST documented as of this encounter Care Teams Early Childhood Worker Relationship Specialty Start Date End Date Manpreet Avila NP [address] [facility] [place] [address] PCP - General Family Medicine 12/29/20 Serina Peralta MD [address] [place] [address] [place] [address] Gastroenterology 04/06/22 documented as of this encounter Additional Source Comments The information contained in this document represents components of the legal health record. It is not the complete legal health record.[facility]
--- OUTSIDE RECORDS SUMMARY | 2025-07-16 09:00 | XMS_ITS | Encounter Summary ---
Author Organization [facility] Address [address] [place] [address] Phone Care Team Providers Care General Labor Forklift Operator Name Role Phone Manpreet Avila NP Primary Care Provider + Serina Peralta MD Unavailable [phone] Encounter Details Date Type Department Care Team (Late st Contact Info) Description 03/17/2025 Procedure Pass [facility] 4 ENDO DEPT 55 [facility], 4th [place] [address] Social History Tobacco Use Types Packs/Day Years [...] as food, clothing, or medical care? No 03/17/2025 In the past 12 months have y ou been in a relationship with a person who hurts, threatens, or tries to control you? No 03/17/2025 Are you denied basic needs s uch as food, clothing, or medical care? No 03/17/2025 In the past 12 months have y ou been in a relationship with a person who hurts, threatens, or tries to control you? No 03/17/2025 Sex and Gender Information Value Date Recorded Sex Assigned at Male 05/19/2021 9:32 AM EDT Legal Sex Male 11:49 AM EST Gender Identity Male 05/19/2021 9:32 AM EDT Sexual Orientation Straight 05/19/2021 9: 32 AM EDT documented as of this encounter Plan of Treatment Upcoming Encounters Date Type Department Care Team (Latest Contact Info) Description 07/28/2025 8:05 AM EDT Blood Draw [facility] [address] [address] Sepideh Cardenas MD [address] [place] [phone] [email or web address] 08/21/2025 7:30 AM EDT Pre-Admission Testing [facility] Pre-Procedure Evaluation Department [place] [address] Sancho Thakur MD [address] [place] [phone] [email or web address] 09/02/2025 8:00 AM EDT Blood Draw [facility] [address] [address] Sepideh Cardenas MD [address] [place] [address] [email or web address]@[email or web address] 09/04/2025 Procedure Pass [facility] 4 ENDO DEPT [address] [facility], [address]th [place] [address] 09/04/2025 8:00 AM EDT Hospital Encounter [facility] 4 ENDO DEPT [address] [facility], [address] [place] [address] Sancho Thakur MD [address] [facility] 5 [place] [address] [email or web address] 09/04/2025 8:00 AM EDT - 09/04/2025 9:30 AM EDT Surgery [facility] 4 ENDO DEPT [address] [facility], [address] [place] [address] Sancho Thakur MD [address] [address] [email or web address] ENDOSCOPIC RETROGRADE CHOLANGIOPANCREATOGRAPHY 09/29/2025 8:05 AM EST Blood Draw [facility] [address] [place] [address] Sepideh Cardenas MD [address] [place] [phone] [email or web address]@[email or web address] 10/27/2025 8:00 AM EST Blood Draw [facility] [address] [place] [address] Sepideh Cardenas MD [address] [place] [phone] [email or web address]@[email or web address] 11/03/2025 9:40 AM EST Office Visit [facility] [address] [place] [address] Sepideh Cardenas MD [address] [place] [phone] [email or web address] Scheduled Procedures Name Priority Associated Diagnoses Date/Ti ks ENDOSCOPIC RETROGRADE CHOLANGIOPANCREATOGRAPHY Encounter for pancreatic duct stent exchange 09/04/2025 8:00 AM EDT documented as of this encounter Visit Diagnoses Not on filedocumented in this encounter Care Teams General Labor Forklift Operator Relationship Specialty Start Date End Date Manpreet Avila NP [address] [place] [address] [place] [address] PCP - General Family Medicine 12/29/20 Serina Peralta MD [address] [place] [address] [place] [address] Gastroenterology 04/06/22 documented as of this encounter Additional Source Comments The information contained in this document represents components of the legal health record. It is not the complete legal health record.[facility]
--- OUTSIDE RECORDS SUMMARY | 2025-07-16 09:00 | XMS_ITS | Encounter Summary ---
Author Organization [facility] Address [address] [place] [address] Phone Care Team Providers Care [employer] Senior Sergeant Name Role Phone Manpreet Avila NP Primary Care Provider + Serina Peralta MD Unavailable [phone] Encounter Details Date Type Department Care Team (Late st Contact Info) Description 05/29/2025 Procedure Pass [facility] 4 ENDO DEPT 55 [facility], 4th [place] [address] Social History Tobacco Use Types Packs/Day Years [...] ecorded Are you denied basic needs s [facility] as food, clothing, or medical care? No [...] Description 07/28/2025 8:05 AM EDT Blood Draw [facility] [address] [address] Sepideh Cardenas MD [address] [place] [address] [email or web address] 08/21/2025 7:30 AM EDT Pre-Admission Testing [facility] Pre-Procedure Evaluation Department Please [place] [address] Sancho Thakur MD [address] [place] [address] [email or web address] 09/02/2025 8:00 AM EDT Blood Draw [facility] [address] [address] Sepiedh Cardenas MD [address] [place] [address] [email or web address] 09/04/2025 Procedure Pass [facility] 4 ENDO DEPT [address] [facility], [address] [place] [address] 09/04/2025 8:00 AM EDT Hospital Encounter [facility] 4 ENDO DEPT [address] [facility], [address] [place] [address] Sancho Thakur MD [address] [facility] 5 [place] [address] [email or web address] 09/04/2025 8:00 AM EDT - 09/04/2025 9:30 AM EDT Surgery [facility] 4 ENDO DEPT [address] [facility], [address] [place] [address] Sancho Thakur MD [address] [address] [email or web address] ENDOSCOPIC RETROGRADE CHOLANGIOPANCREATOGRAPHY 09/29/2025 8:05 AM EST Blood Draw [facility] [address] [place] [address] Sepideh Cardenas MD [address] [place] [address] [email or web address] 10/27/2025 8:00 AM EST Blood Draw [facility] [address] [place] [address] Sepideh Cardenas MD [address] [place] [address] [email or web address] 11/03/2025 9:40 AM EST Office Visit [facility] [address] [place] [address] Sepideh Cardenas MD [address] [place] [phone] [email or web address] Scheduled Procedures Name Priority Associated Diagnoses Date/Ti wv ENDOSCOPIC RETROGRADE CHOLANGIOPANCREATOGRAPHY Encounter for pancreatic duct stent exchange 09/04/2025 8:00 AM EDT documented as of this encounter Visit Diagnoses Not on filedocumented in this encounter Care Teams Air Defense [employer] Senior Sergeant Relationship Specialty Start Date End Date Manpreet Avila NP [address] [place] [address] [place] [address] PCP - General Family Medicine 12/29/20 Serina Peralta MD [address] [place] [address] [place] [address] Gastroenterology 04/06/22 documented as of this encounter Additional Source Comments The information contained in this document represents components of the legal health record. It is not the complete legal health record.[facility]
== END 2025-07-16 09:26 | disposition home or self-care (01) ==
PROVIDERS: PCP Nurse Practitioner Family; Visit Provider Physician Assistant
DX: L50.9 Urticaria, unspecified (principal); T78.40XA Allergy, unspecified, initial encounter

== ENCOUNTER 2025-08-20 13:50 | Outpatient (REF) | payer OTHER, SELFPAY ==
[2025-08-20 16:07] LABS: Appearance Urine Clear; Glucose Urine UA Negative (Negative); PH 5.0 (5.0-9.0); Specific Gravity - Urine 1.015 (1.005-1.025)
[2025-08-20 16:12] LABS: MANUAL DIFF FLAG NO
[2025-08-20 16:17] LABS: Hematocrit 40.5 % (42.0-52.0); Hemoglobin 13.2 g/dl (14.0-18.0); Imm Gran Abs Auto 0.01 X10*3/uL (0.00-0.03); Imm Gran Pct Auto 0.2 % (0.0-0.4); Lymphocytes Absolute Auto 1.6 X10*3/uL (1.2-4.9); Mean Corpuscular HGB Conc 32.6 g/dl (31.0-36.0); Mean Corpuscular Hemoglobin 28.4 pg (27.0-33.0); Mean Corpuscular Volume 87.1 fL (80.0-98.0); NRBC Abs Auto 0.000 X10*3/uL (0.0-0.012); NRBC Pct Auto 0.0 /100WBC (0.0-0.2); Platelet Count 290 X10*3/uL (160-400); Red Blood Count 4.65 X10*6/uL (4.60-5.80); White Blood Count 4.9 X10*3/uL (4.8-10.8)
[2025-08-20 16:57] LABS: Cholesterol 185 mg/dL (<200); HDL Cholesterol 49 mg/dL (>40); Triglycerides 119 mg/dL (<150)
== END 2025-08-20 13:51 | disposition home or self-care (01) ==
LOC: HO.HMGCLDS 13:50
PROVIDERS: PCP Nurse Practitioner Family; Visit Provider Nurse Practitioner Family
DX: E11.9 Type 2 diabetes mellitus without complications (principal); Z79.82 Long term (current) use of aspirin; Z79.4 Long term (current) use of insulin; Z79.899 Other long term (current) drug therapy
CPT/HCPCS: 36415; 80061; 81003; 83036; 84443; 85025; 96127

== ENCOUNTER 2025-08-20 13:50 | Outpatient (AMB) | payer OTHER, SELFPAY ==
--- NOTE | 2025-08-20 14:04 | A.OFFPC_ITS ---
Vital Signs 08/20/25 14:05 Height 5 ft 8 in Weight 249 lb BMI 37.9 BP 130/94 H Blood Pressure Location Lt brachial Position Sitting Respiration 16 Pulse 73 Pulse Source Pulse Oximeter Pulse Oximetry (%) 99 Oxygen Delivery Method Room Air Intake Visit Reasons: 3m follow up Underwriting Clerk Required: No Accompanied by: Self / Same As Patient Allergies No Known Allergies (No Known Allergies*) Allergy (Verified 08/20/25 14:37) Medication List - Last Reconciled 08/20/25 by ANDREA Higuera alcohol swabs (Easy Touch Alcohol Prep Pads) pad topical BID aspirin 1 tab PO DAILY atorvastatin 20 mg PO BEDTIME blood sugar diagnostic (FreeStyle Lite Strips) As directed blood-glucose meter (FreeStyle Lite Meter kit) As directed blood-glucose sensor (Calendly G7 Sensor device) test blood sugar 4 times per day, change sensor every 10 days famotidine (Pepcid) 40 mg PO DAILY finasteride 5 mg PO DAILY 90 days hydroxyzine HCl 10 mg PO Q8H insulin glargine (Lantus Solostar U-100 Insulin) 8 units (0.08 mL) subcut QPM lancets (FreeStyle Lancets) Test blood sugar three times per day magnesium oxide 800 mg PO TID mesalamine ER (Apriso) 1.5 grams (4 x 0.375 gram) PO DAILY mycophenolate mofetil 250 mg PO BID pen needle, diabetic Use daily to inject insulin pen needle, diabetic As directed semaglutide 2 mg (0.75 mL) subcut QWEEK sertraline 25 mg PO DAILY tacrolimus 1 mg PO BID tamsulosin 0.4 mg PO BEDTIME 90 days ustekinumab (Stelara) 90 mg subcut Q8W Tobacco use date assessed: 08/20/25 Dental Screening Dental Screen Date: 08/20/25 Did you have a dental visit in the last 12 months?: Yes Did you have a dental problem in the last 6 months where you did not have access to dental care?: No Was dental information given to patient?: Patient has dentist HPI 3m follow up HPI Details Chief Complaint The patient presents for follow-up care related to diabetes management. History of Present Illness The patient is a 59-year-old male presenting with a follow-up visit for diabetes management. He reports experiencing diabetic neuropathy, primarily affecting his bilateral feet, with baseline symptoms of numbness and tingling. The patient has been managing his diabetes with regular monitoring and medication adherence, as evidenced by a recent hemoglobin A1c level of 6.5%. The patient also presents with onychomycosis, characterized by extensive fungal infection and elongated toenails, particularly affecting the big toes. He has been referred to podiatry multiple times for management of this condition. The patient is morbidly obese, which is a contributing factor to his overall health status. He acknowledges the need for lifestyle modifications to address his weight. Regarding preventative care, the patient reports that his eye examination is up to date, although there is no record in the system. He has been encouraged to ensure this is completed soon, i am due again soon . Social History Health Maintenance - Eye examination recommended to ensure up-to-date preventative care Review of Systems - Neurological: Reports diabetic neuropa thy with numbness and tingling in bilateral feet Physical Exam General: Cooperative, healthy appearing, comfortable, no acute distress and well developed Orientation: Patient oriented x3 Limitations: No limitations Head: Normal to inspection Ears: Hearing grossly normal bilaterally Nose: Normal external nose present Face and sinus: Normal facial exam Eyes: Appearance normal, both eyes and all related structures Neck: Normal visual inspection and Yes full ROM Respiratory: Normal respiratory effort and able to speak in complete sentences. Clear to auscultation bilaterally Cardiovascular: Regular rate and rhythm. Normal S1 and S2 GI: Normal to inspection. Soft to palpation and nontender Skin: No rashes or lesions noted Neuro: Patient oriented x3 Extremities: Feet were intact, except for some dryness, positive sensation with use of monofilament. There was extensive onychomycosis noted, bilateral and elongated toenails, especially big toenails. Results - Labs: Hemoglobin A1c level at 6.5% Plan 1. Diabetes Mellitus The patient's diabetes is currently managed with regular monitoring and medication adherence, as indicated by a hemoglobin A1c level of 6.5%. He is encouraged to continue with his current management plan and to have regular follow-up appointments to monitor his condition. 2. Diabetic Neuropathy The patient experiences diabetic neuropathy with baseline numbness and tingling in his bilateral feet. He is advised to continue monitoring his symptoms and to report any changes or worsening of his condition. 3. Onychomycosis The patient has been referred to podiatry for management of his onychomycosis, characterized by extensive fungal infection and elongated toenails. He is advised to follow up with the popcorn machine operator for appropriate treatment. 4. Morbid Obesity The patient is morbidly obese and acknowledges the need for lifestyle modifications to address his weight. He is encouraged to engage in weight management strategies, including dietary changes and increased physical activity. Discussion Notes Patient Instructions - Continue current diabetes management p nova and monitor blood sugar levels regularly. - Follow up with podiatry for onychomyco sis treatment. - Schedule and complete an eye examinati on soon. - Engage in weight management strategies , including dietary changes and increased physical activity. 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 Surgical History S/P kyphoplasty Liver transplanted Hx of colonoscopy History of esophagogastroduodenoscopy (EGD) Family History Sister History of liver cancer Father Substance use disorder Social History Household Members: Spouse Household Members Other:: 2 Housing: House Are you a primary nurse behavioral health care to a significant other at home: No Do you presently have visiting nurse or other home services: No Alcohol intake: never Comment: was medicated Patient Tobacco Use Status: Current someday Tobacco user Tobacco use type: Cigar e-Cigarette/Vaping Use: Never Used Second Hand Smoke Exposure: No Advance Directives Date on File: 12/31/21 service: No Current occupational status: disabled Cognitive needs: No Hearing needs: No Vision needs: No Questionnaire PHQ-9 Over the last 2 weeks, how often have you been bothered by any of the following problems? 1. Little interest or pleasure in doing things: several days 2. Feeling down, depressed, or hopeless: several days 3. Trouble falling or staying asleep, or sleeping too much: several days 4. Feeling tired or having little energy: several days 5. Poor appetite or overeating: several days 6. Feeling bad about yourself - or that you are a failure or have let yourself or your family down: not at all 7. Trouble concentrating on things, such as reading the newspaper or watching television: several days 8. Moving or speaking so slowly that other people could have noticed. Or the opposite - being so fidgety or restless that you have been moving around a lot more than usual: not at all 9. Thoughts that you would be better off or of hurting yourself in some way: not at all Total score: 6 Depression Screening Interpretation: Negative Depression Screening Done: Yes 94640 - PHQ-9 Billing: Yes Source: Developed by Drs. Frantz Mora, Sophia Monroe, Elmer Calle and colleagues, with an educational nacho from [employer]. Thrive Questionnaire Date Thrive assessed: 05/05/25 I am a: Patient What is your living situation today?: I have a steady place to live Within the past 12 months, did the food you bought not last and you didn't have the money to get more?: Never true Within the past 12 months, did you worry whether your food would run out before you got money to buy more?: Never true Do you have trouble paying for medicines?: I choose not to answer this question Do you have trouble getting transportation to medical appointments?: No Do you have trouble paying your heating and electricity bill?: No Do you have trouble taking care of your child, family member or friend?: No Do you have trouble with day-to-day activities such as bathing, preparing meals, shopping, managing finances, etc.?: No Are you currently unemployed and looking for a job?: No Are you interested in more education?: I choose not to answer this question Please select the resources that you would like help with: None Currently or been in a relationship where the following occur: No concerns reported THRIVE Score: 0 MARGE-7 AMB Questionnaire MARGE-7 Date MARGE - 7 assessed: 08/20/25 Feeling nervous, anxious, or on edge: 2 = More than half the days Not being able to stop or control worryin = More than half the days Worrying too much about different things: 2 = More than half the days Trouble relaxin = Several days Being so restless that it is hard to sit still: 1 = Several days Becoming easily annoyed or irritable: 1 = Several days Feeling afraid as if something awful might happen: 1 = Several days Total MARGE-7 score (0-4 normal; 5-9 mild; 10-14 moderate; 15-21 severe): 10 Source: Developed by Drs. Frantz Mora, Sophia Monroe, Elmer Calle and colleagues, with an educational nacho from [employer]. Physical exam (Primary Care) Vital Signs: Last Vital Signs Pulse 73 08/20/25 14:05 Resp 16 08/20/25 14:05 BP 130/94 H 08/20/25 14:05 Pulse Ox 99 08/20/25 14:05 Oxygen Delivery Method Room Air 08/20/25 14:05 BMI result Body Mass Index 37.9 Tobacco/Smoking Status: Tobacco use Status Tobacco use date assessed 08/20/25 08/20/25 14:13 Patient Tobacco Use Status Current someday Tobacco 08/20/25 14:07 Tobacco use type Cigar 08/20/25 14:07 e-Cigarette/Vaping Use Never Used 08/20/25 14:07 PHQ-9: PHQ-9 Score PHQ-9: Total score 6 08/20/25 14:13 Depression Screening Interpretation: Negative Thrive Assessment: Date of Thrive Assessment Date Thrive assessed 05/05/25 08/20/25 14:07 Currently or been in a relationship where the following occur: No concerns reported Coding Level of Care Code Est Pt Level 3 (94791) Diagnoses Diabetes E11.9 Additional Codes PHQ-9 - 97815 - PHQ-9 Billing: Yes ([id number]) Assessment & Plan Assessment & Plan (1) Diabetes: Code(s): E11.9 - Type 2 diabetes mellitus without complications Category: Medical Plan . Orders: Orders Comprehensive [place]. Panel Fast Today E11.9 - Type 2 diabetes mellitus without complications TSH reflex Free T4 Today E11.9 - Type 2 diabetes mellitus without complications UA CC w/rflx Micro + Cult Today E11.9 - Type 2 diabetes mellitus without complications Complete Blood Count Auto Diff Today E11.9 - Type 2 diabetes mellitus without complications Lipid Panel Today E11.9 - Type 2 diabetes mellitus without complications
[2025-08-20 14:05] VITALS: BP 130/94; PULSE 73; RESP 16; O2SAT 99; BMI 37.9
--- OUTSIDE RECORDS SUMMARY | 2025-08-20 15:06 | XMS_ITS | Encounter Summary ---
Author Organization [facility] Address [address] [place] [address] [address] [place] [address] Phone Care Team Providers Care Living Specialist Name Role Phone Manpreet Avila NP Primary Care Provider + Serina Peralta MD Unavailable [phone] Reason for Visit * Reason Comments Medication Refill Encounter Details Date Type Department Care Team (Late st Contact Info) Description 02/23/[address], [address] Floor, [address] [place] [address] Rachel Combs, MUSIC COPYIST [address] [place] [phone] [email or web address] Medication Refill Social History Tobacco Use Types [...] Department Care Team (Latest Contact Info) Description 08/21/2025 7:30 AM EDT Pre-Admission Testing [facility] Pre-Procedure Evaluation Department [place] [address] Sancho Thakur MD [address] [facility] 5 [place] [address] [email or web address] 09/02/2025 8:00 AM EDT Blood Draw [facility] 165 [facility] 301 [place] [address] Sepideh Cardenas MD 55 [facility] [address] [email or web address] 09/04/2025 Procedure Pass [facility] [address] [facility], 4th [place] [address] 09/04/2025 8:00 AM EDT Hospital Encounter [facility] [address] END[address] [facility], 4th [place] [address] Sancho Thakur MD [address] [facility] 5 [place] [address] [email or web address] 09/04/2025 8:00 AM EDT - 09/04/2025 9:30 AM EDT Surgery [facility] [address] END[address] [facility], 4th [place] [address] Sancho Thakur MD [address] [place] [phone] [email or web address] ENDOSCOPIC RETROGRADE CHOLANGIOPANCREATOGRAPHY 09/29/2025 8:05 AM EST Blood Draw [facility] [address] [address] Sepideh Cardenas MD [address] [place] [address] [email or web address] 10/27/2025 8:00 AM EST Blood Draw [facility] [address] [address] Sepideh Cardenas MD [address] [place] [address] [email or web address] 11/03/2025 9:40 AM EST Office Visit [facility] [address] [address] Sepideh Cardenas MD [address] [place] [address] [email or web address] Scheduled Procedures Name Priority Associated Diagnoses Date/Ti mt ENDOSCOPIC RETROGRADE CHOLANGIOPANCREATOGRAPHY Encounter for pancreatic duct stent exchange 09/04/2025 8:00 AM EDT documented as of this encounter Visit Diagnoses Not on filedocumented in this encounter Care Teams Living Specialist Relationship Specialty Start Date End Date Manpreet Avila NP [address] [facility] [place] [address] PCP - General Family Medicine 12/29/20 Serina Peralta MD [address] [place] [address] [place] [address] Gastroenterology 04/06/22 documented as of this encounter Additional Source Comments The information contained in this document represents components of the legal health record. It is not the complete legal health record.[facility]
--- OUTSIDE RECORDS SUMMARY | 2025-08-20 15:06 | XMS_ITS | Encounter Summary ---
Author Organization [facility] Address [address] [place] [address] Phone Care Team Providers Care Lead Network Engineer Name Role Phone Manpreet Avila NP Primary Care Provider + Serina Peralta MD Unavailable [phone] Encounter Details Date Type Department Care Team (Late st Contact Info) Description 12/31/2024 Procedure Pass [facility] [address] [facility], 4th [place] [address] Social History Tobacco Use Types Packs/Day Years [...] ecorded Are you denied basic needs s [facility] as food, clothing, or medical care? No [...] Description 08/21/2025 7:30 AM EDT Pre-Admission Testing [facility] Pre-Procedure Evaluation Department [place] [address] Sancho Thakur MD [address] [place] [phone] [email or web address] 09/02/2025 8:00 AM EDT Blood Draw [facility] [address] [place] [address] Sepideh Cardenas MD [address] [place] [address] [email or web address] 09/04/2025 Procedure Pass [facility] [address] [facility], 4th [place] [address] 09/04/2025 8:00 AM EDT Hospital Encounter [facility] [address] [facility], 4th [place] [address] Sancho Thakur MD [address] [place] [phone] [email or web address] 09/04/2025 8:00 AM EDT - 09/04/2025 9:30 AM EDT Surgery [facility] [address] [facility], 4th [place] [address] Sancho Thakur MD [address] [place] [phone] [email or web address] ENDOSCOPIC RETROGRADE CHOLANGIOPANCREATOGRAPHY 09/29/2025 8:05 AM EST Blood Draw [facility] [address] [address] Sepideh Cardenas MD [address] [place] [address] [email or web address] 10/27/2025 8:00 AM EST Blood Draw [facility] [address] [address] Sepideh Cardenas MD [address] [place] [address] [email or web address] 11/03/2025 9:40 AM EST Office Visit [facility] Trans[facility] [address] [address] Sepideh Cardenas MD [address] [place] [address] [email or web address] Scheduled Procedures Name Priority Associated Diagnoses Date/Ti va ENDOSCOPIC RETROGRADE CHOLANGIOPANCREATOGRAPHY Encounter for pancreatic duct stent exchange 09/04/2025 8:00 AM EDT documented as of this encounter Visit Diagnoses Not on filedocumented in this encounter Care Teams Lead Network Engineer Relationship Specialty Start Date End Date Manpreet Avila NP [address] [facility] [place] [address] PCP - General Family Medicine 12/29/20 Serina Peralta MD [address] [place] [address] [place] [address] Gastroenterology 04/06/22 documented as of this encounter Additional Source Comments The information contained in this document represents components of the legal health record. It is not the complete legal health record.[facility]
--- OUTSIDE RECORDS SUMMARY | 2025-08-20 15:06 | XMS_ITS | Encounter Summary ---
Author Organization [facility] Address [address] [place] [address] Phone Care Team Providers Care Groover And Striper Operator Name Role Phone Manpreet Avila NP Primary Care Provider + Serina Peralta MD Unavailable [phone] Encounter Details Date Type Department Care Team (Late st Contact Info) Description 10/03/2024 Procedure Pass [facility] 4 ENDO DEPT [address] [facility], 4th [place] [address] Social History Tobacco Use Types Packs/Day Years Used Date Smoking Tobacco: Never Smokeless Tobacco: Never Comments:Cigars every now an d then Alcohol Use Standard Drinks/Week Comments Not Currently [...] as food, clothing, or medical care? No 10/03/2024 In the past 12 months have y ou been in a relationship with a person who hurts, threatens, or tries to control you? No 10/03/2024 Are you denied basic needs s uch as food, clothing, or medical care? No 10/03/2024 In the past 12 months have y ou been in a relationship with a person who hurts, threatens, or tries to control you? No 10/03/2024 Sex and Gender Information Value Date Recorded Sex Assigned at Male 05/19/2021 9:32 AM EDT Legal Sex Male 11:49 AM EST Gender Identity Male 05/19/2021 9:32 AM EDT Sexual Orientation Straight 05/19/2021 9: 32 AM EDT documented as of this encounter Plan of Treatment Upcoming Encounters Date Type Department Care Team (Latest Contact Info) Description 08/21/2025 7:30 AM EDT Pre-Ad[place] Testing [facility] [place] Evaluation Department Please [place] [address] Sancho Thakur MD [address] [address] [email or web address] 09/02/2025 8:[address] EDT [address] [facility] [address] [place] [address] Sepideh Cardenas MD [address] [place] [address] [email or web address] 09/04/[address] [facility] 4 ENDO DEPT 55 [facility], 4th [place] [address] 09/04/2025 8:00 AM EDT Hospital Encounter [facility] 4 ENDO DEPT 55 [facility], 4th [place] [address] Sancho Thakur MD [address] [address] [email or web address] 09/04/2025 8:00 AM EDT - 09/04/2025 9:[address] [facility] 4 ENDO DEPT [address] [place] [address], 4th [place] [address] Sancho Thakur MD [address] [place] [address] [email or web address] ENDOSCOPIC RETROGRADE CHOLANGIOPANCREATOGRAPHY 09/29/2025 8:05 AM EST Blood Draw [facility] [address] [place] [address] Sepideh Cardenas MD [address] [place] [address] [email or web address] 10/27/2025 8:00 AM EST Blood Draw [facility] [address] [address] Sepideh Cardenas MD [address] [place] [address] [email or web address] 11/03/2025 9:40 AM EST Office Visit [facility] Trans[place] [address] [address] Sepideh Cardenas MD [address] [place] [address] [email or web address] Scheduled Procedures Name Priority Associated Diagnoses Date/Ti vt ENDOSCOPIC RETROGRADE CHOLANGIOPANCREATOGRAPHY Encounter for pancreatic duct stent exchange 09/04/2025 8:00 AM EDT documented as of this encounter Visit Diagnoses Not on filedocumented in this encounter Care Teams Groover And Striper Operator Relationship Specialty Start Date End Date Manpreet Avila NP [facility] [place] [address] PCP - General Family Medicine 12/29/20 Sernia Peralta MD [address] [place] [address] Dr [address] [place] [address] Gastroenterology 04/06/22 documented as of this encounter Additional Source Comments The information contained in this document represents components of the legal health record. It is not the complete legal health record.[facility]
--- OUTSIDE RECORDS SUMMARY | 2025-08-20 15:06 | XMS_ITS | Encounter Summary ---
Author Organization [facility] Address [address] [place] [address] Phone Care Team Providers Care Shift Supervisor Film Processing Name Role Phone Manpreet Avila NP Primary Care Provider + Serina Peralta MD Unavailable [phone] Encounter Details Date Type Department Care Team (Late st Contact Info) Description 01/01/2024 Procedure Pass [facility] 4 ENDO DEPT 55 [facility], 4th [place] [address] Social History Tobacco Use Types Packs/Day Years [...] Description 08/21/2025 7:30 AM EDT Pre-Admission Testing [facility] Pre-Procedure Evaluation Department Please [place] [address] Sancho Thakur MD 55 [address] [facility] 5 [place] [address] [email or web address] 09/02/2025 8:00 AM EDT Blood Draw [facility] [address] [address] Sepideh Cardenas MD [address] [address] [email or web address] 09/04/2025 Procedure Pass [facility] 4 ENDO DEPT 55 [facility], 4th [place] [address] 09/04/2025 8:00 AM EDT Hospital Encounter [facility] 4 ENDO DEPT 55 [address] [facility], 4th [place] [address] Sancho Thakur MD [address] [address] [email or web address] 09/04/2025 8:00 AM EDT - 09/04/2025 9:30 AM EDT Surgery [facility] 4 ENDO DEPT 55 [address] [facility], 4th [place] [address] Sancho Thakur MD 55 [address] [facility] 5 [place] [address] [email or web address] ENDOSCOPIC RETROGRADE CHOLANGIOPANCREATOGRAPHY 09/29/2025 8:05 AM EST Blood Draw [facility] [address] [address] Sepideh Cardenas MD [address] [place] [address] [email or web address]@[email or web address] 10/27/2025 8:00 AM EST Blood Draw [facility] [address] [address] Sepideh Cardenas MD [address] [place] [address] [email or web address]@[email or web address] 11/03/2025 9:40 AM EST Office Visit [facility] [address] [place] [address] Sepideh Cardenas MD [address] [place] [address] [email or web address]@[email or web address] Scheduled Procedures Name Priority Associated Diagnoses Date/Ti ga ENDOSCOPIC RETROGRADE CHOLANGIOPANCREATOGRAPHY Encounter for pancreatic duct stent exchange 09/04/2025 8:00 AM EDT documented as of this encounter Visit Diagnoses Not on filedocumented in this encounter Care Teams Shift Supervisor Film Processing Relationship Specialty Start Date End Date Manpreet Avila NP [address] [place] [address] [place] [address] PCP - General Family Medicine 12/29/20 Serina Peralta MD [address] [place] [address] [place] [address] Gastroenterology 04/06/22 documented as of this encounter Additional Source Comments The information contained in this document represents components of the legal health record. It is not the complete legal health record.[facility]
--- OUTSIDE RECORDS SUMMARY | 2025-08-20 15:06 | XMS_ITS | Encounter Summary ---
Author Organization [facility] Address [address] [place] [address] Phone Care Team Providers Care Hand Or Machine Paster Name Role Phone Manpreet Avila NP Primary Care Provider + Serina Peralta MD Unavailable [phone] Reason for Visit * Reason Comments Medication Refill Encounter Details Date Type Department Care Team ([facility] st Contact Info) Description 08/19/2025 Refill [facility] Trans[facility] [address] [address] Carissa Nguyen, ASSOCIATE MATERIAL HANDLER 165 [facility] [place] [address] [email or web address] Medication Refill Social History Tobacco Use Types [...] Description 08/21/2025 7:30 AM EDT Pre-Admission Testing [facility] Pre-Procedure Evaluation Department Please [place] [address] Sancho Thakur MD [address] [place] [phone] [email or web address] 09/02/2025 8:00 AM EDT Blood Draw [facility] Trans[facility] Clinic 165 [facility] 301 [place] [address] Sepideh Cardenas MD 55 [facility] [address] [email or web address] 09/04/2025 Procedure Pass [facility] 4 ENDO DEPT [address] [place] [address], 4th [place] [address] 09/04/2025 8:00 AM EDT Hospital Encounter [facility] 4 ENDO DEPT 55 Fruit [facility], 4th [place] [address] Sancho Thakur MD 55 [facility] 5 [place] [address] [email or web address] 09/04/2025 8:00 AM EDT - 09/04/2025 9:30 AM EDT Surgery [facility] 4 ENDO DEPT 55 [address] [facility], 4th [place] [address] Sancho Thakur MD 55 [facility] 5 [place] [address] [email or web address] ENDOSCOPIC RETROGRADE CHOLANGIOPANCREATOGRAPHY 09/29/2025 8:05 AM EST Blood Draw [facility] Transplant Clinic [address] [place] [address] Sepideh Cardenas MD [address] [place] [address] [email or web address]@[email or web address] 10/27/2025 8:00 AM EST Blood Draw [facility] Transplant Clinic [address] [place] [address] Sepideh Cardenas MD [address] [place] [phone] RAFA@[email or web address] 11/03/2025 9:40 AM EST Office Visit [facility] Transplant Clinic [address] [place] [address] Sepideh Cardenas MD [address] [place] [address] [email or web address]@[email or web address] Scheduled Procedures Name Priority Associated Diagnoses Date/Ti nv ENDOSCOPIC RETROGRADE CHOLANGIOPANCREATOGRAPHY Encounter for pancreatic duct stent exchange 09/04/2025 8:00 AM EDT documented as of this encounter Visit Diagnoses Diagnosis S/P liver transplant Immunosuppression Encounter for pancreatic duct stent exchange documented in this encounter Care Teams Hand Or Machine Paster Relationship Specialty Start Date End Date Manpreet Avila NP [facility] [address] PCP - General Family Medicine 12/29/20 Serina Peralta MD [address] [place] [address] [place] [address] Gastroenterology 04/06/22 documented as of this encounter Additional Source Comments The information contained in this document represents components of the legal health record. It is not the complete legal health record.[facility]
--- OUTSIDE RECORDS SUMMARY | 2025-08-20 15:07 | XMS_ITS | Encounter Summary ---
Author Organization [facility] Address [address] [place] [address] Phone Care Team Providers Care Pharmaceutical Operator Name Role Phone Manpreet Avila NP Primary Care Provider + Serina Peralta MD Unavailable Encounter Details Date Type Department Care Team (Late st Contact Info) Description 06/22/2023 Ancillary Orders [facility] 165 [facility] 9th [place] [address] Edgar Rodriguez MD [address] [address] [email or web address] [email or web address] Social History Tobacco Use Types Packs/Day [...] Description 08/21/2025 7:30 AM EDT Pre-Admission Testing [facility] Pre-Procedure Evaluation Department [place] [address] Sancho Thakur MD [address] [address] [email or web address] 09/02/2025 8:00 AM EDT Blood Draw [facility] [address] [address] Sepideh Cardenas MD [address] [facility] [address] RAFA@[email or web address] 09/04/2025 Procedure Pass [facility] 4 ENDO DEPT 55 Fruit [facility], 4th [place] [address] 09/04/2025 8:00 AM EDT Hospital Encounter [facility] 4 ENDO DEPT 55 [address] [facility], 4th [place] [address] Sancho Thakur MD [address] [address] [email or web address] 09/04/2025 8:00 AM EDT - 09/04/2025 9:30 AM EDT Surgery [facility] 4 ENDO DEPT 55 [address] [facility], 4th [place] [address] Sancho Thakur MD [address] [place] [address] [email or web address] ENDOSCOPIC RETROGRADE CHOLANGIOPANCREATOGRAPHY 09/29/2025 8:05 AM EST Blood Draw [facility] [address] [address] Sepideh Cardenas MD [address] [place] [address] RAFA@[facility] 10/27/2025 8:00 AM EST Blood Draw [facility] [address] [address] Sepideh Cardenas MD [address] [place] [address] RAFA@[facility] 11/03/2025 9:40 AM EST Office Visit [facility] [address] [address] Sepideh Cardenas MD [address] [place] [phone] RAFA@[email or web address] Scheduled Procedures Name Priority Associated Diagnoses Date/Ti sd ENDOSCOPIC RETROGRADE CHOLANGIOPANCREATOGRAPHY Encounter for pancreatic duct [...] COVID-19 positive close contact during hospitalization at [facility] ([facility]) on 07/30/2023. See infection control note dated 08/01/2023 for more information (this is posted as a documentation encounter which can be found under Chart Review>Encounters). 07/30/2023 08/01/2023 08/10/2023 1:22 AM E DT COVID-19 11/30/2023 11/30/2023 12/21/2023 1:25 AM EST documented as of this encounter Care Teams Pharmaceutical Operator Relationship Specialty Start Date End Date Manpreet Avila NP [facility] [place] [address] PCP - General Family Medicine 12/29/20 Serina Peralta MD [address] [place] [address] [place] [address] Gastroenterology 04/06/22 documented as of this encounter Additional Source Comments The information contained in this document represents components of the legal health record. It is not the complete legal health record.[facility]
--- OUTSIDE RECORDS SUMMARY | 2025-08-20 15:07 | XMS_ITS | Encounter Summary ---
Author Organization [facility] Address [address] [place] [address] Phone Care Team Providers Care Payroll Services Analyst Name Role Phone Manpreet Avila NP Primary Care Provider + Serina Peralta MD Unavailable [phone] Encounter Details Date Type Department Care Team (Late st Contact Info) Description 06/07/2023 Procedure Pass [address] [place] [address] Social History Tobacco Use Types Packs/Day Years [...] Description 08/21/2025 7:30 AM EDT Pre-Admission Testing [facility] Pre-Procedure Evaluation Department Please [place] [address] Sancho Thakur MD 55 [address] [facility] 5 [place] [address] [email or web address] 09/02/2025 8:00 AM EDT Blood Draw [facility] Transplant Clinic [address] [place] [address] Sepideh Cardenas MD [address] [address] RAFA@[email or web address] 09/04/2025 Procedure Pass [facility] 4 ENDO DEPT [address] [facility], 4th [place] [address] 09/04/2025 8:00 AM EDT Hospital Encounter [facility] 4 ENDO DEPT [address] [facility], 4th [place] [address] Sancho Thakur MD 55 [address] [facility] 5 [place] [address] [email or web address] 09/04/2025 8:00 AM EDT - 09/04/2025 9:30 AM EDT Surgery [facility] 4 ENDO DEPT [address] [facility], 4th [place] [address] Sancho Thakur MD 55 [address] [facility] 5 [place] [address] [email or web address] ENDOSCOPIC RETROGRADE CHOLANGIOPANCREATOGRAPHY 09/29/2025 8:05 AM EST Blood Draw [facility] Trans[facility] [address] [address] Sepideh Cardenas MD [address] [place] [address] [email or web address] 10/27/2025 8:00 AM EST Blood Draw [facility] Trans[facility] [address] [place] [address] Sepideh Cardenas MD [address] [place] [address] RAFA@[email or web address] 11/03/2025 9:40 AM EST Office Visit [facility] Transplant Clinic [address] [place] [address] Sepideh Cardenas MD [address] [place] [address] RAFA@[email or web address] Scheduled Procedures Name Priority Associated Diagnoses Date/Ti md ENDOSCOPIC RETROGRADE CHOLANGIOPANCREATOGRAPHY Encounter for pancreatic duct [...] COVID-19 positive close contact during hospitalization at [facility] (H) on 07/30/2023. See infection control note dated 08/01/2023 for more information (this is posted as a documentation encounter which can be found under Chart Review>Encounters). 07/30/2023 08/01/2023 08/10/2023 1:22 AM E DT COVID-19 11/30/2023 11/30/2023 12/21/2023 1:25 AM EST documented as of this encounter Care Teams Payroll Services Analyst Relationship Specialty Start Date End Date Manpreet Avila NP [facility] [place] [address] PCP - General Family Medicine 12/29/20 Serina Peralta MD [address] [place] [address] [place] [address] Gastroenterology 04/06/22 documented as of this encounter Additional Source Comments The information contained in this document represents components of the legal health record. It is not the complete legal health record.[facility]
--- OUTSIDE RECORDS SUMMARY | 2025-08-20 15:07 | XMS_ITS | Encounter Summary ---
Author Organization [facility] Address [address] [place] [address] Phone Care Team Providers Care Fire Patroller Name Role Phone Manpreet Avila NP Primary Care Provider + Serina Peralta MD Unavailable [phone] Encounter Details Date Type Department Care Team (Late st Contact Info) Description 07/19/2023 Procedure Pass [facility] PERIOPERATIVE DEPT [address] [place] [phone] Social History Tobacco Use Types Packs/Day Years [...] Description 08/21/2025 7:30 AM EDT Pre-Admission Testing [facility] Pre-Procedure Evaluation Department [place] [address] Sancho Thakur MD 55 [address] [facility] 5 [place] [address] [email or web address] 09/02/2025 8:00 AM EDT Blood Draw [facility] Transplant Clinic [address] [place] [address] Sepideh Cardenas MD [address] [address] [email or web address]@[email or web address] 09/04/2025 Procedure Pass [facility] 4 ENDO DEPT 55 [facility], 4th [place] [address] 09/04/2025 8:00 AM EDT Hospital Encounter [facility] 4 ENDO DEPT 55 [facility], 4th [place] [address] Sancho Thakur MD [address] [place] [address] [email or web address] 09/04/2025 8:00 AM EDT - 09/04/2025 9:30 AM EDT Surgery [facility] NOR[facility] 4 ENDO DEPT 55 [facility], 4th [place] [address] Sancho Thakur MD [address] [place] [address] [email or web address] ENDOSCOPIC RETROGRADE CHOLANGIOPANCREATOGRAPHY 09/29/2025 8:05 AM EST Blood Draw [facility] Transplant Clinic [address] [address] Sepideh Cardenas MD [address] [place] [phone] [email or web address]@[email or web address] 10/27/2025 8:00 AM EST Blood Draw [facility] Transplant Clinic [address] [place] [address] Sepideh Cardenas MD [address] [place] [address] RAFA@[email or web address] 11/03/2025 9:40 AM EST Office Visit [facility] Transplant Clinic [address] [place] [address] Sepideh Cardenas MD [address] [place] [phone] [email or web address]@[email or web address] Scheduled Procedures Name Priority Associated Diagnoses Date/Ti nd ENDOSCOPIC RETROGRADE CHOLANGIOPANCREATOGRAPHY Encounter for pancreatic duct [...] COVID-19 positive close contact during hospitalization at [facility] (H) on 07/30/2023. See infection control note dated 08/01/2023 for more information (this is posted as a documentation encounter which can be found under Chart Review>Encounters). 07/30/2023 08/01/2023 08/10/2023 1:22 AM E DT COVID-19 11/30/2023 11/30/2023 12/21/2023 1:25 AM EST documented as of this encounter Care Teams Fire Patroller Relationship Specialty Start Date End Date Manpreet Avila NP [address] [facility] [place] [address] PCP - General Family Medicine 12/29/20 Serina Peralta MD [address] [place] [address] [place] [address] Gastroenterology 04/06/22 documented as of this encounter Additional Source Comments The information contained in this document represents components of the legal health record. It is not the complete legal health record.[facility]
--- OUTSIDE RECORDS SUMMARY | 2025-08-20 15:07 | XMS_ITS | Encounter Summary ---
Author Organization [facility] Address [address] [place] [address] [place] [address] Phone Care Team Providers Care Surgical Instrument Technician Name Role Phone Unknown, Unknown Primary Care Provider Manpreet Campbell NP Primary Care Provider + Clarita Loja MD Unavailable [phone] Serina Peralta MD Unavailable [phone] Encounter Details Date Type Department Care Team (Late st Contact Info) Description 12/25/2020 Procedure Pass [facility] [place], [place] [address] [place] [address], 2nd Floor, [address] [place] [address] Social History Tobacco Use Types Packs/Day Years [...] Description 08/21/2025 7:30 AM EDT Pre-Admission Testing [facility] Pre-Procedure Evaluation Department [place] [phone] Sancho Thakur MD [address] [address] [email or web address] 09/02/2025 8:00 AM EDT Blood Draw [facility] Transplant Clinic [address] [address] Sepideh Cardenas MD [address] [address] [email or web address]@[email or web address] 09/04/2025 Procedure Pass [facility] COLT 4 ENDO DEPT 55 [facility], [address] [place] [address] 09/04/2025 8:00 AM EDT Hospital Encounter [facility] COLT 4 ENDO DEPT 55 [facility], [address] [place] [address] Sancho Thakur MD [address] [place] [phone] [email or web address] 09/04/2025 8:00 AM EDT - 09/04/2025 9:30 AM EDT Surgery [facility] COLT 4 ENDO DEPT 55 [facility], [address] [place] [address] Sancho Thakur MD [address] [place] [address] [email or web address] ENDOSCOPIC RETROGRADE CHOLANGIOPANCREATOGRAPHY 09/29/2025 8:05 AM EST Blood Draw [facility] Transplant Clinic [address] [address] Sepideh Cardenas MD [address] [address] RAFA@[email or web address] 10/27/2025 8:00 AM EST Blood Draw [facility] Transplant Clinic [address] [address] Sepideh Cardenas MD [address] [place] [address] [email or web address]@[email or web address] 11/03/2025 9:40 AM EST Office Visit [facility] Transplant Clinic [address] [address] Sepideh Cardenas MD [address] [place] [phone] [email or web address] Scheduled Procedures Name Priority Associated [...] COVID-19 positive close contact during hospitalization at [facility] (H) on 07/30/2023. See infection control note dated 08/01/2023 for more information (this is posted as a documentation encounter which can be found under Chart Review>Encounters). 07/30/2023 08/01/2023 08/10/2023 1:22 AM E DT COVID-19 11/30/2023 11/30/2023 12/21/2023 1:25 AM EST documented as of this encounter Care Teams Surgical Instrument Technician Relationship Specialty Start Date End Date Unknown, Unknown, PCP - General 12/23/20 12/28/20 Manpreet Avila NP [address] [facility] [place] [address] PCP - General Family Medicine 12/29/20 Clarita Loja MD [address] [place] [address] [place] [address] Gastroenterology 02/16/21 11/22/21 Serina Peralta MD [address] [place] [address] [place] [address] Gastroenterology 04/06/22 documented as of this encounter Additional Source Comments The information contained in this document represents components of the legal health record. It is not the complete legal health record.[facility]
--- OUTSIDE RECORDS SUMMARY | 2025-08-20 15:07 | XMS_ITS | Encounter Summary ---
Author Organization [facility] Address [address] [place] [phone] Phone Care Team Providers Care String Winding Machine Operator Name Role Phone Manpreet Avila NP Primary Care Provider + Serina Peralta MD Unavailable [phone] Encounter Details Date Type Department Care Team (Late st Contact Info) Description 06/22/2023 Ancillary Orders [facility] Imaging [address] [place] [address] Edgar Rodriguez MD 55 [facility] [address] [place] [address] [email or web address] Abnormal finding on imaging Social History [...] 08/21/2025 7:30 AM EDT Pre-Admission Testing [facility] Pre-Procedure Evaluation Department [place] [address] Sancho Thakur MD [address] [address] [email or web address] 09/02/2025 8:00 AM EDT Blood Draw [facility] Transplant Clinic [address] [place] [address] Sepideh Cardenas MD [address] [place] [phone] [email or web address] 09/04/2025 Procedure Pass [facility] 4 ENDO DEPT [address] [facility], [address] [place] [address] 09/04/2025 8:00 AM EDT Hospital Encounter [facility] 4 ENDO DEPT [address] [facility], 4th [place] [address] Sancho Thakur MD [address] [address] [email or web address] 09/04/2025 8:00 AM EDT - 09/04/2025 9:30 AM EDT Surgery [facility] 4 ENDO DEPT [address] [facility] [place] [address] Sancho Thakur MD [address] [phone] [email or web address] ENDOSCOPIC RETROGRADE CHOLANGIOPANCREATOGRAPHY 09/29/2025 8:05 AM EST Blood Draw [facility] [address] [address] Sepideh Cardenas MD [address] [place] [id number] [email or web address] 10/27/2025 8:00 AM EST Blood Draw [facility] [address] [address] Sepideh Cardenas MD [address] [place] [address] [email or web address] 11/03/2025 9:40 AM EST Office Visit [facility] [address] [address] Sepideh Cardenas MD [address] [place] [phone] [email or web address] Scheduled Procedures Name Priority Associated Diagnoses Date/Ti de ENDOSCOPIC RETROGRADE CHOLANGIOPANCREATOGRAPHY Encounter for pancreatic duct stent exchange 09/04/2025 8:00 AM EDT documented as of this encounter Results * MRI Abdomen Outside With Interpretation Or Consult (06/21/2023 12:00 AM EDT) 06/22/2023 8:19 AM EDT Impressions [facility] - 06/22/2023 12:01 PM EDT Since 09/21/2022, increased multifocal intrahepatic ductal stricturing and dilatation. The distribution is suggestive of a right anterior hepatic stricture, although evaluation is limited due to respiratory motion. Increased ascites. ATTESTATION: I, Dr. Pk Kim as teaching physician, have reviewed the images for this case and if necessary edited the report originally created by Kaylan Riley. [facility] - 06/22/2023 12:01 PM EDT MRI ABDOMEN [...] COMPARISON: MRI CHOLANGIOPANCREATOGRAPHY (MRCP) WITH AND WITHOUT [id number] FINDINGS: The examination is degraded by motion [...] OUTSIDE IMAGING W/ I NTERPRETATION Final Result [address] [id number] documented in this encounter Visit Diagnoses Diagnosis [...] positive close contact during hospitalization at [facility] (H) on 07/30/2023. See infection control note dated 08/01/2023 for more information (this is posted as a documentation encounter which can be found under Chart Review>Encounters). 07/30/2023 08/01/2023 08/10/2023 1:22 AM E DT COVID-19 11/30/2023 11/30/2023 12/21/2023 1:25 AM EST documented as of this encounter Care Teams String Winding Machine Operator Relationship Specialty Start Date End Date Manpreet Avila NP [facility] [place] [address] PCP - General Family Medicine 12/29/20 Serina Peralta MD [address] [place] [address] [place] [address] Gastroenterology 04/06/22 documented as of this encounter Additional Source Comments The information contained in this document represents components of the legal health record. It is not the complete legal health record.[facility]
--- OUTSIDE RECORDS SUMMARY | 2025-08-20 15:07 | XMS_ITS | Clinical Summary ---
Author Organization [facility] Address [address] [place] [phone] Phone Care Team Providers Care Tai Chi Instructor Name Role Phone Manpreet Avila NP Primary Care Provider + Serina Peralta MD Unavailable [phone] Allergies No known active allergies Medications sertraline (ZOLOFT) 25 MG tablet Take 25 mg by mouth daily. Active blood-glucose Misc meter Insurance covered brand glucometer 1 each 3 Active GLUCOSE BLOOD test strip INSURANE COVERED brand test strips. Test up to 2 times a day, as directed. 60 strip 3 Active lancets Misc Test up to2 times a day, as directed. 60 each 3 Active alcohol PadM Use 2 times a day, as directed. 60 each 3 Active acetaminophen (TYLENOL) 325 mg tablet Take 2 tablets (650 mg total) by mouth every 8 (eight) hours as needed for pain (specific location in comments). 0 3 Active omeprazole (PRILOSEC) 40 MG capsule Take 1 capsule (40 mg total) by mouth daily before breakfast. 30 capsule 2 3 Active insulin glargine 100 unit/mL (3 mL) InPn injection pen Inject 8 Units under the skin nightly at bedtime. Active atorvastatin (LIPITOR) 20 MG tablet Take 20 mg by mouth daily. Active aspirin 81 mg chewable tablet CHEW AND SWALLOW 1 TABLET(81 MG) BY MOUTH DAILY 30 tablet 4 Active ursodioL (ACTIGALL) 300 mg capsuleIndicat ions:S/P liver transplant,Imm unosuppression Take 2 capsules (600 mg total) by mouth 2 (two) times a day. 120 capsule 5 Active Additional Information Patient not taking.Reported on 05/29/2025 mycophenolate mofetil (CELLCEPT) 250 mg capsuleIndicat ions:S/P liver transplant,Imm unosuppression Take 2 capsules (500 mg total) by mouth every morning AND 2 capsules (500 mg total) every evening. 360 capsule 3 5 02/10/20 26 Active magnesium oxide (MAG-OX) 400 mg (241.3 mg elemental) tabletIndicati ons:Hypomagnes emia,Status post liver transplant Take 1 tablet (400 mg total) by mouth daily. 30 tablet 5 Active tacrolimus (PROGRAF) 1 MG capsuleIndicat ions:S/P liver transplant,Imm unosuppression Take 2 capsules (2 mg total) by mouth every morning AND 2 capsules (2 mg total) every evening. 120 capsule 5 08/01/20 26 Active tacrolimus (PROGRAF) 1 MG capsuleIndicat ions:S/P liver transplant,Imm unosuppression Take 2 capsules (2 mg total) by mouth every morning AND 3 capsules (3 mg total) every evening. 150 capsule 11 5 08/06/20 25 Discontin ued(No CancelRX) Active Problems Patient Care Coordination No te Formatting of this note is d ifferent from the original. Yaya Howell [id number] Type of Transplant: DCD LIVER Date of [...] call PCP if sugars over 200 consistently. Drains/Foleys/Sutures/Grinnell: Priti incision cdi and SHIP'S ENGINEER, sealed with dermabond - 1 AFUA to RLQ , REMOVED on 07/28/23 - Sutures old to AFUA sites. - Stitches to neck and groin removed - [place] tolliver to incision Insurance Issues:Home with PT Additional Information: INITIAL post op in ICU required numerous blood products Volume overload, required extended stay for IV diuresis. Oral lasix plan at DC: Lasix 80 TID, Aldactone 75mg Follow up 1. Labs: Ordered and scheduled for [facility] for , 08/03/2023 at: [facility] [address] [place] [address] 2. Transplant Follow Up: Please schedule follow [...] coagulopathy and anemia and was evaliated at [facility] 12/2020, underwent extensive evaluation, coagulopathy was most [...] cryo and 1U FFP since arrival to [facility]) S/P liver transplant 12/25/2020 Overview (08/04/2023): Transplant date:07/19/2023 Original liver disease: PSC:UC Type of liver transplant: DCD Functional Status: 70% working at time of being called in yes In hospital at time of txp no Insurance: Private Pre-op Ht: 175.3 cm Wt 45.2 kg CMV D-/R- EBV D+/R+ Donor ID: [id number] Donor details: Study/protocoL WIT: 54 min CIT: [...] & Plan (07/31/2023 12:39 PM EDT): Yaya Howell is a 57 yo M with [...] ordered and scheduled for , 08/03 at [facility] in [place] - Follow Up: Yeh on Monday, with labs that morning. Assessment & Plan (12/29/2020 9:21 AM EST): Diagnosed in 1999; followed by Dr. Loja at [facility]. Cirrhosis likely multifactorial in setting of primary [...] Followed by Dr. Loja of hepatology at [facility]. - CA 19-9 10 - AFP 2.3 [...] Date Type Department Care Team Description 5 Refill [facility] [address] [address] Carissa Nguyen, MALVIN Medication Refill 5 Refill [facility] [address] [address] Cathie Burdick, accounting generalist Dose Change 5 Telephone [facility] [address] [address] Cathie Burdick, RN 5 Orders Only [facility] [address] [address] Sepideh Cardenas MD 5 Orders Only [facility] [address] [address] Sepideh Cardenas MD 5 Refill [facility] [address] [place] [address] Satci Reddy, MILAGRO 5 Orders Only [facility] [address] [place] [address] Sepideh Cardenas MD 5 Refill [facility] [address] [address] Dinah Gonzalez, MILAGRO 5 Orders Only [facility] [address] [place] [address] Sepideh Cardenas MD 5 Telephone [facility] [address] [place] [address] Cathie Burdick, MILAGRO 5 Orders Only [facility] [address] [address] Sepideh Cardenas MD 5 Orders Only [facility] [address] [address] Sepideh Cardenas MD 5 8:42 AM EDT Anesthesia Event [place] [address] [address] [place] [address], 4th [place] [address] Evette Sotelo, Karolina Acosta, MILAGRO 5 8:15 AM EDT - 5 11:59 PM EDT Hospital Encounter [facility] GI Endoscopy, [place] [address], [address] [place] [address] Sancho Thakur MD Discharge Disposition: Home or Self Care 5 8:00 AM EDT - 5 9:30 AM EDT Surgery [facility] COLT 4 ENDO DEPT [address], [address] [place] [address] Sancho Thakur MD ENDOSCOPIC RETROGRADE CHOLANGIOPANCREATOGRAPHY 5 8:00 AM EDT - 5 10:16 AM EDT Hospital Encounter [facility] COLT 4 ENDO DEPT [address], [address] [place] [address] Sancho Thakur MD Discharge Disposition: Home or Self Care 5 Orders Only [facility] [address] [place] [address], [address] [place] [address] Sancho Thakur MD Encounter for pancreatic duct stent exchange (Primary Dx); PSC (primary sclerosing cholangitis); S/P liver transplant; Alcoholic cirrhosis of liver with ascites 5 Telephone [facility] [address] [place] [address] Rica Rouse RN 5 Procedure Pass [facility] COLT 4 ENDO DEPT [address] [place] [address], [address] [place] [address] 5 Orders Only [facility] [address] [place] [address] Sepideh Cardenas MD 5 Telephone [facility] [address] [place] [address] Rica Rouse, MILAGRO from Last 3 Months Immunizations Immunization Administration Dates Next Due COVID-19 (Pre-09/11) Pfizer Vaccine, mRNA, PF ,02/16/2021 INFLUENZA, SPLIT VIRUS, TRIVALENT PF 08/21/2012 Influenza Quadrivalent Preservative Free IM 11/2022,12/15/2020 Influenza Quadrivalent w/ Preservative IM 2017 Influenza [...] Description 08/21/2025 7:30 AM EDT Pre-Admission Testing [facility] Pre-Procedure Evaluation Department Please [place]ment [place] [address] Sancho Thakur MD [address] [place] [phone] [email or web address] 09/02/2025 8:00 AM EDT Blood Draw [facility] [address] [place] [address] Sepideh Cardenas MD [address] [place] [phone] [email or web address] 09/04/2025 Procedure Pass [facility] COLT 4 ENDO DEPT [address], 4th [place] [address] 09/04/2025 8:00 AM EDT Hospital Encounter [facility] COLT 4 ENDO DEPT [address] [facility], 4th [place] [address] Sancho Thakur MD [address] [place] [phone] [email or web address] 09/04/2025 8:00 AM EDT - 09/04/2025 9:30 AM EDT Surgery [facility] COLT [address] END[address] [facility], 4th [place] [address] Sanhco Thakur MD [address] [place] [phone] [email or web address] ENDOSCOPIC RETROGRADE CHOLANGIOPANCREATOGRAPHY 09/29/2025 8:05 AM EST Blood Draw [facility] [address] [address] Sepideh Cardenas MD [address] [place] [address] [email or web address] 10/27/2025 8:00 AM EST Blood Draw [facility] [address] [place] [address] Sepideh Cardenas MD [address] [place] [address] [email or web address] 11/03/2025 9:40 AM EST Office Visit [facility] [address] [address] Sepideh Cardenas MD [address] [place] [phone] [email or web address] Scheduled Procedures Name Priority Associated Diagnoses Date/Ti la ENDOSCOPIC RETROGRADE CHOLANGIOPANCREATOGRAPHY Encounter for pancreatic duct [...] TOBACCO SCREENING 05/29/2026 05/29/2025 SCREENING FOR DIABETES 08/04/2028 08/04/2025 COLONOSCOPY 09/28/2032 09/28/2022 COLORECTAL CANCER SCREENING 09/28/2032 [...] this topic Medical Devices Implanted Type Area Vp Product Management Device Identifier Shelf Expiration Date Model / Serial / Lot Stent Cotton-Vera 10fr 3.7mm 9cm .035in Otw Biliary Catheter Polyethylene Distal Flap Curved Shape Tapered Tip - [id number] Implanted:Qty: 3 on 05/29/2025 by Sancho Thakur MD at [facility] STANDARD [employer] [id number] 12/25/2027 CLSO-10- 9 / / [id number] Explanted Type Area Vp Product Management Device Identifier Shelf Expiration Date Model / Serial / Lot Stent Cotton-Vera 10fr 3.7mm 9cm .035in Otw Biliary Catheter Polyethylene Distal Flap Curved Shape Tapered Tip - [id number] Implanted:Qty: 1 on 08/23/2023 by Sancho Thakur MD at [facility] Explanted:Qty: 1 on 12/31/2024 by Sancho Thakur MD at [facility] STANDARD [employer]ile [employer] 05/23/2026 CLSO-10- 9 / / Stent Cotton-Vera 10fr 3.7mm 9cm .035in Otw Biliary Catheter Polyethylene Distal Flap Curved Shape Tapered Tip - [id number] Implanted:Qty: 1 on 10/03/2024 by Val Gomez MD at [facility] Explanted:Qty: 1 on 12/31/2024 by Sancho Thakur MD at [facility] STANDARD [employer] [id number] 08/07/2027 CLSO-10- 9 / / [id number] Stent Cotton-Vera 10fr 3.7mm 9cm .035in Otw Biliary Catheter Polyethylene Distal Flap Curved Shape Tapered Tip - [id number] Implanted:Qty: 1 on 10/03/2024 by Val Gomez MD at [facility] Explanted:Qty: 1 on 12/31/2024 at [facility] STANDARD [employer]ile [employer] [id number] 08/07/2027 CLSO-10- 9 / / [id number] Stent Cotton-Vera 10fr 3.7mm 9cm .035in Otw Biliary Catheter Polyethylene Distal Flap Curved Shape Tapered Tip - [id number] Implanted:Qty: 1 on 12/31/2024 by Sancho Thakur MD at [facility] Explanted:Qty: 1 on 03/17/2025 by Sancho Thakur MD at [facility] [employer] [id number] 10/25/2027 CLSO-10- 9 / / [id number] Stent Cotton-Vera 10fr 3.7mm 9cm .035in Otw Biliary Catheter Polyethylene Distal Flap Curved Shape Tapered Tip - [id number] Implanted:Qty: 1 on 12/31/2024 by Sancho Thakur MD at [facility] Explanted:Qty: 1 on 03/17/2025 by Sancho Thakur MD at [facility] [employer]ARD [employer] [id number] 10/03/2027 CLSO-10- 9 / / [id number] Stent Cotton-Vera 10fr 3.7mm 9cm .035in Otw Biliary Catheter Polyethylene Distal Flap Curved Shape Tapered Tip - [id number] Implanted:Qty: 1 on 03/17/2025 by Sancho Thakur MD at [facility] Explanted:Qty: 1 on 05/29/2025 by Sancho Thakur MD at [facility] STANDARD Bile [employer] [id number] 12/26/2027 CLSO-10- 9 / / [id number] Stent Cotton-Vera 10fr 3.7mm 9cm .035in Otw Biliary Catheter Polyethylene Distal Flap Curved Shape Tapered Tip - [id number] Implanted:Qty: 1 on 03/17/2025 by Sancho Thakur MD at [facility] Explanted:Qty: 1 on 05/29/2025 by Sancho Thakur MD at [facility] STANDARD Bile [employer] [id number] 12/26/2027 CLSO-10- 9 / / [id number] Stent Cotton-Vera 10fr 3.7mm 9cm .035in Otw Biliary Catheter Polyethylene Distal Flap Curved Shape Tapered Tip - [id number] Implanted:Qty: 1 on 03/17/2025 by Sancho Thakur MD at [facility] Explanted:Qty: 1 on 05/29/2025 by Sanhco Thakur MD at [facility] STANDARD [employer]ile [employer] [id number] 12/26/2027 CLSO-10- 9 / / [id number] Stent Johlin 10fr 22fr 3.7mm .035in Pancreatic Wedge - [id number] Implanted:Qty: 1 on 10/05/2023 by Sancho Thakur MD at [facility] Explanted:Qty: 1 on 12/31/2024 by Sancho Thakur MD at [facility] [employer] [id number] 08/03/2026 JPWS-- / / [id number] Description:10 x 17 Stent Johlin 10fr 22fr 3.7mm .035in Pancreatic Wedge - [id number] Implanted:Qty: 1 on 10/05/2023 by Sancho Thakur MD at [facility] Explanted:Qty: 1 on 12/31/2024 by Sancho Thakur MD at [facility] [employer] [id number] 08/01/2026 JPWS-10- / / [id number] Description:10 x 13 Stent Cotton-Vera 8.5fr 9cm .035in Otw Biliary Catheter Plastic Flaps - [id number] Implanted:Qty: 1 on 12/31/2024 by Sancho Thakur MD at [facility] Explanted:Qty: 1 on 03/17/2025 by Sancho Thakur MD at [facility] [employer] [id number] 09/21/2025 CLSO-8.5 -9 / / [id number] Procedures Procedure Name Priority Date/Time Associated Diagnosis Comments TACROLIMUS LEVEL Routine 08/04/2025 8:18 AM EDT CBC AND DIFFERENTIAL Routine 08/04/2025 8:18 AM EDT COMPREHENSIVE METABOLIC PANEL Routine 8:18 AM EDT PHOSPHORUS Routine 08/04/2025 8:18 AM EDT MAGNESIUM Routine 08/04/2025 8:18 AM EDT BILIRUBIN, DIRECT Routine 08/04/2025 8:18 AM EDT TACROLIMUS LEVEL Routine 07/25/2025 8:11 AM EDT CBC AND DIFFERENTIAL Routine 07/25/2025 8:11 AM EDT COMPREHENSIVE METABOLIC PANEL Routine 8:11 AM EDT PHOSPHORUS Routine 07/25/2025 8:11 AM EDT MAGNESIUM Routine 07/25/2025 8:11 AM EDT BILIRUBIN, DIRECT Routine 07/25/2025 8:11 AM EDT TACROLIMUS LEVEL Routine 07/15/2025 8:13 AM EDT COMPREHENSIVE METABOLIC PANEL Routine 8:13 AM EDT [...] AND DIFFERENTIAL Routine 05/28/2025 8:02 AM EDT HEPATITIS C ANTIBODY, QUALITATIVE Routine 09/04/2023 8:50 AM EDT S/P liver transplant HM COLONOSCOPY FOR RESULT ENTRY ONLY Routine 09/28/2022 LIPID PANEL Routine 12/27/2020 4:02 AM EST from Last 3 Months or Most Recently Relevant to Health Maintenance Results * (ABNORMAL) Comprehensive metabolic panel (08/04/2025 8:18 AM EDT) Only the most recent of7 resultswithin the time period is included. Glucose 94 65 - 99 mg/dL [facility] Comment: Fasting reference interval Urea Nitrogen (BUN) 22 7 - 25 mg/dL [facility] [place] [facility] Creatinine 1.29 0.70 - 1.30 mg/dL [facility] [place] [facility] EGFR 64 > OR = 60 mL/min/1. 73m2 [facility] [place] [facility] BUN/Creatinine Ratio SEE NOTE: 6 - 22 (calc) [facility] Comment: Not Reported: BUN and Creatinine are within reference range. Sodium 139 135 - 146 mmol/L [facility] [place] [facility] Potassium 4.8 3.5 - 5.3 mmol/L [facility] [place] [facility] Chloride 112(H) 98 - 110 mmol/L [facility] Carbon Dioxide 20 20 - 32 mmol/L [facility] Calcium 8.9 8.6 - 10.3 mg/dL [facility] Protein, Total 6.8 6.1 - 8.1 g/dL [facility] Albumin 3.9 3.6 - 5.1 g/dL [facility] Globulin 2.9 1.9 - 3.7 g/dL (calc) [facility] Albumin/Globuli n Ratio 1.3 1.0 - 2.5 (calc) [facility] Bilirubin, Total 0.3 0.2 - 1.2 mg/dL [facility] Alkaline Phosphatase 144 35 - 144 U/L [facility] AST 18 10 - 35 U/L [facility] ALT 17 9 - 46 U/L [facility] 08/04/2025 8:18 AM EDT 08/04/2025 8:18 AM EDT Narrative [facility] 08/05/2025 12:28 AM EDT FASTING:YES FASTING: YES us Sepideh Cardenas MD LAB BLOOD ORDERABLES Final Resul t Performing Organization Address [facility] de Phone Number [facility] [address] [address], [place] [phone] [facility] [address] [place] [phone] * Tacrolimus level (08/04/2025 8:18 AM EDT) Only the most recent of7 resultswithin the time period is included. Tacrolimus 8.3 mcg/L [facility] [place] [facility] Comment: No definitive therapeutic or toxic ranges have been established. Optimal blood drug levels are influenced by type of transplant, patient response, time post- transplant, co-administration of other drugs, and drug formulation. The following trough range is a suggested guideline: 5.0-20.0 mcg/L. This test was developed and its analytical performance characteristics have been determined by [facility]. It has not been cleared or approved by the FDA. This assay has been validated pursuant to the CLIA regulations and is used for clinical purposes. 08/04/2025 8:18 AM EDT 08/04/2025 8:18 AM EDT Narrative [facility] - 08/05/2025 12:28 AM EDT FASTING:YES FASTING: YES us Sepideh Cardenas MD LAB BLOOD ORDERABLES Final Resul t Performing Organization Address [facility] Co de Phone Number [facility] [address] [address] [phone] [facility] [place] [facility] [facility] [address] [place] [phone] * (ABNORMAL) CBC and differential (08/04/2025 8:18 AM EDT) Only the most recent of7 resultswithin the time period is included. WBC 4.3 3.8 - 10.8 Thousand/ uL [facility] [place] [facility] Red Blood Cell 4.47 4.20 - 5.80 Million/u L [facility] Hemoglobin 12.9(L) 13.2 - 17.1 g/dL [facility] [place] [facility] Hematocrit 41.6 38.5 - 50.0 % [facility] MCV 93.1 80.0 - 100.0 fL [facility] [place] [facility] MCH 28.9 27.0 - 33.0 pg [facility] [place] [facility] MCHC 31.0(L) 32.0 - 36.0 g/dL [facility] [place] [facility] Comment: For adults, a slight decrease in the calculated MCHC value (in the range of 30 to 32 g/dL) is most likely not clinically significant; however, it should be interpreted with caution in correlation with other red cell parameters and the patient's clinical condition. RDW 12.8 11.0 - 15.0 % [facility] Platelet Count 239 140 - 400 Thousand/ uL [facility] [place] [facility] MPV 9.9 7.5 - 12.5 fL [facility] [place] [facility] Absolute Neutrophils 2,116 1,500 - 7,800 cells/uL [facility] [place] [facility] Absolute Lymphocytes 1,419 850 - 3,900 cells/uL [facility] [place] [facility] Absolute Monocytes 473 200 - 950 cells/uL [facility] [place] [facility] Absolute Eosinophils 262 15 - 500 cells/uL [facility] [place] [facility] Absolute Basophils 30 0 - 200 cells/uL [facility] [place] [facility] Neutrophils 49.2 % [facility] [place] [facility] Lymphocytes 33.0 % [facility] [place] [facility] Monocytes 11.0 % [facility] [place] [facility] Eosinophils 6.1 % [facility] [place] [facility] Basophils 0.7 % [facility] [place] [facility] 08/04/2025 8:18 AM EDT 08/04/2025 8:18 AM EDT Narrative [facility] 08/05/2025 12:28 AM EDT FASTING:YES FASTING: YES Sepideh Cardenas MD LAB BLOOD ORDERABLES Final Resul t [facility] [address],[place] [address], [facility] [phone] [facility] [place] [facility] [address] [place] [address] * Phosphorus (08/04/2025 8:18 AM EDT) Only the most recent of7 resultswithin the time period is included. Phosphate ( Phosphorus) 3.1 2.5 - 4.5 mg/dL [facility] [place] [facility] 08/04/2025 8:18 AM EDT 08/04/2025 8:18 AM EDT Narrative [facility] - 08/05/2025 12:28 AM EDT FASTING:YES FASTING: YES us Sepideh Cardenas MD LAB BLOOD ORDERABLES Final Resul t Performing Organization Address [facility]/ZIP Co de Phone Number [facility] [address],[place] [address], [facility] [phone] [facility] [place] [facility] [address] [place] [address] * Magnesium (08/04/2025 8:18 AM EDT) Only the most recent of7 resultswithin the time period is included. Magnesium 1.7 1.5 - 2.5 mg/dL [facility] 08/04/2025 8:18 AM EDT 08/04/2025 8:18 AM EDT Narrative [facility] - 08/05/2025 12:28 AM EDT FASTING:YES FASTING: YES us Sepideh Cardenas MD LAB BLOOD ORDERABLES Final Resul t Performing Organization Address City/[facility]/ZIP Co de Phone Number [facility] [address],[place] [address], [facility] [phone] [facility] [place] [facility] [address] [place] [address] * Bilirubin, direct (08/04/2025 8:18 AM EDT) Only the most recent of7 resultswithin the time period is included. Bilirubin, direct 0.1 < OR = 0.2 mg/dL [facility] 08/04/2025 8:18 AM EDT 08/04/2025 8:18 AM EDT Narrative [facility] - 08/05/2025 12:28 AM EDT FASTING:YES FASTING: YES Sepideh Cardenas MD LAB BLOOD ORDERABLES Final Resul t [facility] [facility] [address] [place] [address],[facility] [place] [address], [facility] [phone] [facility] [address] [place] [phone] * [place] ENDOSCOPIC RETROGRADE BILIARY ONLY (05/29/2025 9:40 AM EDT) Anatomical Region Laterality Modality Abdomen Radio Fluoroscop y 05/29/2025 1:12 PM EDT Narrative 05/29/2025 1:12 PM EDT Dose (mGy): 826258 Dose Area Product (DAP): 1711.6 Dose Area Product (DAP) Units: uGy.m2 Fluoro time (min): 4.4 [facility] Dose Report: CTDIvol: 0 mGy. DLP: 0 mGy-cm. Procedure Note Exercise Equipment Specialist, Dictation - 05/29/2025 Dose (mGy): 786896 Dose Area Product (DAP): 1711.6 Dose Area Product (DAP) Units: uGy.m2 Fluoro time (min): 4.4 Radimetrics Dose Report: CTDIvol: 0 mGy. DLP: 0 mGy-cm. Sancho Thakur MD IMG FL EXAMS Final Result * ENDOSCOPY PROCEDURE (05/29/2025 9:06 AM EDT) 05/29/2025 9:06 AM EDT Narrative Transcriptions Sancho Thakur MD - 05/29/2025 9:06 AM EDT Gastrointestinal Endoscopy Unit Patient Name: Yaya Howell Exam Date: 05/29/2025 9:06 AM Date of : 1965 Admit Type: Outpatient Age: 59 Room: [place] [address] Gender: Male Note Status: Finalized Attending MD: [...] 10F biliary stents were visible on the salesforce consultant film. The esophagus was successfully intubated under [...] performed the entire procedure. Sancho Thakur MD, [id number] 05/29/2025 9:42:14 AM The attending physician was [...] not difficult to intubate. Procedure performed by: fellow/resident/MORTGAGE LOAN COUNSELOR Anesthesiologist: Evette Sotelo MD Fellow/Resident/MORTGAGE LOAN COUNSELOR: Wisam Oscar CRNA Airway procedure initiated at:05/29/2025 [...] Complications observed? no us Evette Sotelo MD ME ANESTHESIA Final Res ult * POCT Glucose (05/29/2025 8:24 AM EDT) Glucose, POCT 93 70 - 110 mg/dL [facility] 05/29/2025 8:24 AM EDT 05/29/2025 8:26 AM EDT Sancho Thakur MD POINT OF CARE TEST ORDERABLES F inal Result [address] [address] * Hepatitis C antibody, qualitative (09/04/2023 8:50 AM EDT) Pathologist [facility] HCV ANTIBODY Negative Negative [facility] Comment:Antibodies to HCV no t detected. Does not exclude the possibility of exposure to HCV. 09/04/2023 8:50 AM EDT 09/04/2023 1:00 PM EDT Sepideh Cardenas MD LAB BLOOD ORDERABLES Final Resul t Performing Organization Address City/[facility]/ZIP Co de Phone Number [address] [address] * COLONOSCOPY FOR RESULT ENTRY ONLY (09/28/2022) Pathologist [facility] Colonoscopy Normal terminal ileum, Cecum and Descending colon : Scarred Mucosa, Ascending and transverse colon: Mild Patchy erythema, 6-8 mm sessile polyp in sigmoid colon, internal hemorrhoids in rectum, diverticular disease, Path: A. Small intestinal mucosa, Comment:B.Chronic inactive c olitis.C.Transverse colon biopsy:Chronic active colitis D.Colon,Sigmoid,polypectomy:Hyperplastic mucosal polyp.E.Biopsy:Focally active,proctitis.Done At [facility] Skye Jimenez MD HEALTH MAINTENANCE Edited Result - Final * (ABNORMAL) Lipid panel (12/27/2020 4:02 AM EST) Pathologist [facility] HDL 49 35 - 100 mg/dL [facility] CHOLESTEROL 134 <200 mg/dL [facility] TRIGLYCERIDES 36(L) 40 - 150 mg/dL [facility] LDL 78 50 - 129 mg/dL [facility] CARDIAC RISK RATIO 2.7 0.0 - 5.0 [facility] NON-HDL CHOLESTEROL 85 mg/dL [facility] Comment:NCEP ATP III guideli kanika suggest a non-HDL cholesterol goal 30 mg/dl higher than the patient-specific LDL goal. Blood 12/27/2020 4:0 2 AM EST 12/27/2020 4:58 AM EST us Rosaline Cai ASSESSMENT CONSULTANT LAB BLOOD ORDERABL ES Final Result [facility] [address] [place] [address] from Last 3 Months or Most Recently Relevant to Health Maintenance Insurance MEDICARE A [facility] SHARED SERVICES MEDICARE A [facility] [employer] SERVICES MEDICARE A [facility] SHAR[employer] MEDICARE A [facility] SHARED SERVICES MEDICARE A [facility] SHARED SERVICES MEDICARE A [facility] [employer] MEDICARE A [facility] [employer] Advance Directives For more information, please contact: [phone] (9AM - 5PM 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 anation Healthcare Proxy 03/17/2021 4:57 PM * Full Code (Latest Code Status on File) Date Activated Date Inactivated Comments 07/18/2023 1:13 PM Question Answer Comments Code Status Confirmed With: Patient * Full Code Date Activated Date Inactivated Comments 12/25/2020 2:53 PM 07/18/2023 1:13 PM Question Answer Comments Code Status Confirmed With: Patient Care Teams Tai Chi Instructor Relationship Specialty Start Date End Date Manpreet Avila NP [address] [place] [address] PCP - General Family Medicine 12/29/20 Serina Peralta MD [address] [place] [address] [place] [address] Gastroenterology 04/06/22 Additional Source Comments The information contained in this document represents components of the legal health record. It is not the complete legal health record.[facility]
--- OUTSIDE RECORDS SUMMARY | 2025-08-20 15:07 | XMS_ITS | Encounter Summary ---
Author Organization [facility] Address [address] [place] [address] Phone Care Team Providers Care Junior Graphic Designer Name Role Phone Manpreet Avila NP Primary Care Provider + Serina Peralta MD Unavailable [phone] Encounter Details Date Type Department Care Team (Late st Contact Info) Description 04/25/2023 Transcribe Orders [facility] Laboratory [address] [place] [address] Rosario Adame PA-C [address] [place] [phone] [email or web address] Social History Tobacco Use [...] Description 08/21/2025 7:30 AM EDT Pre-Admission Testing [facility] Pre-Procedure Evaluation Department Please [place] [address] Sancho Thakur MD [address] [address] [email or web address] 09/02/2025 8:00 AM EDT Blood Draw [facility] Transplant Clinic [address] [place] [address] Sepideh Cardenas MD [address] [place] [address] [email or web address] 09/04/2025 Procedure Pass [facility] NORMA 4 ENDO DEPT 55 [facility], 4th [place] [address] 09/04/2025 8:00 AM EDT Hospital Encounter [facility] NORMA 4 ENDO DEPT [address] [facility], [address] [place] [address] Sancho Thakur MD [address] [address] [email or web address] 09/04/2025 8:00 AM EDT - 09/04/2025 9:30 AM EDT Surgery [facility] NORMA 4 ENDO DEPT [address] [facility], 4th [place] [address] Sancho Thakur MD [address] [address] [email or web address] ENDOSCOPIC RETROGRADE CHOLANGIOPANCREATOGRAPHY 09/29/2025 8:05 AM EST Blood Draw [facility] Transplant Clinic [address] [address] Sepideh Cardenas MD [address] [place] [address] [email or web address] 10/27/2025 8:00 AM EST Blood Draw [facility] Transplant Clinic [address] [address] Sepideh Cardenas MD [address] [place] [address] [email or web address] 11/03/2025 9:40 AM EST Office Visit [facility] Transplant Clinic [address] [address] Sepideh Cardenas MD [address] [place] [address] [email or web address] Scheduled Procedures Name Priority Associated Diagnoses Date/Ti ct ENDOSCOPIC RETROGRADE CHOLANGIOPANCREATOGRAPHY Encounter for pancreatic duct [...] COVID-19 positive close contact during hospitalization at [facility] (H) on 07/30/2023. See infection control note dated 08/01/2023 for more information (this is posted as a documentation encounter which can be found under Chart Review>Encounters). 07/30/2023 08/01/2023 08/10/2023 1:22 AM E DT COVID-19 11/30/2023 11/30/2023 12/21/2023 1:25 AM EST documented as of this encounter Care Teams Junior Graphic Designer Relationship Specialty Start Date End Date Manpreet Avila NP [facility] [place] [address] PCP - General Family Medicine 12/29/20 Serina Peralta MD [address] [place] [address] [place] [address] Gastroenterology 04/06/22 documented as of this encounter Additional Source Comments The information contained in this document represents components of the legal health record. It is not the complete legal health record.[facility]
--- OUTSIDE RECORDS SUMMARY | 2025-08-20 15:07 | XMS_ITS ---
Author Organization [facility] Address [address] [place] [address] [place] [address] Phone Care Team Providers Care Audiovisual Aids Technician Name Role Phone Manpreet Avila NP Primary Care Provider + Serina Peralta MD Unavailable [phone] Transplant Episode Liver Recipient [facility] ([place], [place]) - [employer] Organ Received: Liver Transplanted on 07/19/2023 Marked as Active Follow-up on 07/19/2023 Liver CoordinatorCathie Burdick RN Fax: N/A Email: [email or web address] [place] [place] Organ Diagnosis Organ Primary Contributory Liver Primary [...] Care Team Name Role Phone Fax Email Cathie Burdick RN Liver Coordinator [phone] N/A @[facility] Rosario Adame PA-C Physician Therapist Occupational [phone] [email or web address] Edgar Rodriguez MD Transplant Medical Physician [phone] [email or web address] Ramonita Watson [facility] Animal Cruelty Investigator [phone] [email or web address] Sepideh Cardenas MD Post-Transplant Physician Transplant Surgeon [phone] [email or web address] Crystal Chen, TETON Dietitian [phone] N/A [email or web address] Carissa Nguyen, COLOR DRUM WORKER Nurse Practitioner [phone] [email or web address]. [facility] Piper Caceres Ham Doctor N/A N/A N/A Serina Peralta MD Referring Physician [phone] N/A Events Post-Transplant Pre-Transplant Admitted: 07/18/2023 Referred: 02/16/2021 Transplanted: 07/19/2023 Evaluation began: Discharged: 07/31/2023 Committee: 06/02/2021 Center waitlisted: 1 Appointments (07/21/2025 - 09/20/2025) When With Visit Type Description 07/22/2025 Transplant Blood Check Late Post Transp lant No Show 07/28/2025 Transplant Blood Check Late Post Transp lant No Show 08/21/2025 PreAdmission Pre-Procedure Ph one Appointment 09/02/2025 Transplant Blood Check Late Post Transplant
--- OUTSIDE RECORDS SUMMARY | 2025-08-20 15:07 | XMS_ITS | Encounter Summary ---
Author Organization [facility] Address [address] [place] [address] Phone Care Team Providers Care Shoemaker Apprentice Name Role Phone Manpreet Avila NP Primary Care Provider + Serina Peralta MD Unavailable [phone] Encounter Details Date Type Department Care Team (Late st Contact Info) Description 07/19/2023 Procedure Pass [facility] Cardiac US [address] [place] [address] Social History Tobacco Use Types Packs/Day Years [...] 7:30 AM EDT Pre-Admission Testing [facility] Pre-Procedure Evaluation Department [place] [address] Sancho Thakur MD [address] [facility] [address] [place] [address] [email or web address] 09/02/2025 8:00 AM EDT Blood Draw [facility] Transplant Clinic [address] [place] [address] Sepideh Cardenas MD [address] [address] [email or web address]@[email or web address] 09/04/2025 Procedure Pass [facility] NORMA 4 ENDO DEPT 55 [facility], 4th [place] [address] 09/04/2025 8:00 AM EDT Hospital Encounter [facility] NORMA 4 ENDO DEPT [address] [facility], 4th [place] [address] Sancho Thakur MD [address] [place] [address] [email or web address] 09/04/2025 8:00 AM EDT - 09/04/2025 9:30 AM EDT Surgery [facility] NORMA 4 ENDO DEPT 55 [facility], 4th [place] [address] Sancho Thakur MD [address] [place] [address] 5 [place] [address] [email or web address] ENDOSCOPIC RETROGRADE CHOLANGIOPANCREATOGRAPHY 09/29/2025 8:05 AM EST Blood Draw [facility] Transplant Clinic [address] [address] Sepideh Cardenas MD [address] [place] [address] [email or web address]@[email or web address] 10/27/2025 8:00 AM EST Blood Draw [facility] Transplant Clinic [address] [place] [address] Sepideh Cardenas MD [address] [place] [phone] [email or web address] 11/03/2025 9:40 AM EST Office Visit [facility] Transplant Clinic [address] [place] [address] Sepideh Cardenas MD [address] [place] [address] [email or web address] Scheduled Procedures Name [...] close contact during hospitalization at [facility] (H) on 07/30/2023. See infection control note dated 08/01/2023 for more information (this is posted as a documentation encounter which can be found under Chart Review>Encounters). 07/30/2023 08/01/2023 08/10/2023 1:22 AM E DT COVID-19 11/30/2023 11/30/2023 12/21/2023 1:25 AM EST documented as of this encounter Care Teams Shoemaker Apprentice Relationship Specialty Start Date End Date Manpreet Avila NP [address] [place] [address] [place] [address] PCP - General Family Medicine 12/29/20 Serina Peralta MD [address] [place] [address] [place] [address] Gastroenterology 04/06/22 documented as of this encounter Additional Source Comments The information contained in this document represents components of the legal health record. It is not the complete legal health record.[facility]
--- OUTSIDE RECORDS SUMMARY | 2025-08-20 15:08 | XMS_ITS | Encounter Summary ---
Author Organization [facility] Address [address] [place] [address] [address] [place] [address] Phone Care Team Providers Care Music Executive Name Role Phone Manpreet Avila NP Primary Care Provider + Serina Peralta MD Unavailable [phone] Encounter Details Date Type Department Care Team (Late st Contact Info) Description 07/18/2023 Procedure Pass [facility] CT, [place] [address] [facility], 2nd Floor, [address] [place] [address] Social History Tobacco Use Types Packs/Day Years [...] 6:02 PM EDT Alma Marie RN * [place] Suicide Severity Rating Scale (Screener/Recent Self-Report) Question [...] Description 08/21/2025 7:30 AM EDT Pre-Admission Testing [facility] Pre-Procedure Evaluation Department Please [place] [address] Sancho Thakur MD [address] [place] [phone] [email or web address] 09/02/2025 8:00 AM EDT Blood Draw [facility] Transplant Clinic [address] [address] Sepideh Cardenas MD [address] [address] [email or web address] 09/04/2025 Procedure Pass [facility] COLT 4 ENDO DEPT 55 [facility], 4th [place] [address] 09/04/2025 8:00 AM EDT Hospital Encounter [facility] COLT 4 ENDO DEPT 55 [facility], 4th [place] [address] Sancho Thakur MD [address] [place] [address] [email or web address] 09/04/2025 8:00 AM EDT - 09/04/2025 9:30 AM EDT Surgery [place] [address] ENDO DEPT [address] [place] [address], 4th [place] [address] Sancho Thakur MD [address] [place] [address] [email or web address] ENDOSCOPIC RETROGRADE CHOLANGIOPANCREATOGRAPHY 09/29/2025 8:05 AM EST Blood Draw [facility] Transplant Clinic [address] [place] [address] Sepideh Cardenas MD [address] [place] [address] [email or web address] 10/27/2025 8:00 AM EST Blood Draw [facility] Transplant Clinic [address] [place] [address] Sepideh Cardenas MD [address] [place] [address] [email or web address] 11/03/2025 9:40 AM EST Office Visit [facility] Transplant Clinic [address] [place] [address] Sepideh Cardenas MD [address] [place] [phone] [email or web address] Scheduled Procedures Name Priority Associated Diagnoses Date/Ti ia ENDOSCOPIC RETROGRADE CHOLANGIOPANCREATOGRAPHY Encounter for pancreatic duct [...] COVID-19 positive close contact during hospitalization at [facility] (H) on 07/30/2023. See infection control note dated 08/01/2023 for more information (this is posted as a documentation encounter which can be found under Chart Review>Encounters). 07/30/2023 08/01/2023 08/10/2023 1:22 AM E DT COVID-19 11/30/2023 11/30/2023 12/21/2023 1:25 AM EST documented as of this encounter Care Teams Music Executive Relationship Specialty Start Date End Date Manpreet Avila NP [address] [facility] [place] [address] PCP - General Family Medicine 12/29/20 Serina Peralta MD [address] [place] [address] [place] [address] Gastroenterology 04/06/22 documented as of this encounter Additional Source Comments The information contained in this document represents components of the legal health record. It is not the complete legal health record.[facility]
--- OUTSIDE RECORDS SUMMARY | 2025-08-20 15:08 | XMS_ITS | Encounter Summary ---
Author Organization [facility] Address [address] [place] [address] Phone Care Team Providers Care Open Claims Representative Name Role Phone Manpreet Avila NP Primary Care Provider + Serina Peralta MD Unavailable [phone] Encounter Details Date Type Department Care Team (Late st Contact Info) Description 03/17/2025 Procedure Pass [facility] NORMA 4 ENDO DEPT 55 [facility], 4th [place] [address] Social History Tobacco Use Types Packs/Day Years [...] ecorded Are you denied basic needs s [facility] as food, clothing, or medical care? [...] Description 08/21/2025 7:30 AM EDT Pre-Admission Testing [facility] Pre-Procedure Evaluation Department [place] [address] Sancho Thakur MD [address] [place] [address] [email or web address] 09/02/2025 8:00 AM EDT Blood Draw [facility] Transplant Clinic [address] [place] [address] Sepideh Cardenas MD [address] [place] [address] [email or web address] 09/04/2025 Procedure Pass [facility] NOMRA 4 ENDO DEPT 55 [facility], 4th [place] [address] 09/04/2025 8:00 AM EDT Hospital Encounter [facility] NORMA 4 ENDO DEPT 55 [facility], 4th [place] [address] Sancho Thakur MD [address] [place] [phone] [email or web address] 09/04/2025 8:00 AM EDT - 09/04/2025 9:30 AM EDT Surgery [facility] NORMA 4 ENDO DEPT 55 [facility], 4th [place] [address] Sancho Thakur MD [address] [place] [phone] [email or web address] ENDOSCOPIC RETROGRADE CHOLANGIOPANCREATOGRAPHY 09/29/2025 8:05 AM EST Blood Draw [facility] Transplant Clinic [address] [address] Sepideh Cardenas MD [address] [place] [phone] [email or web address]@[email or web address] 10/27/2025 8:00 AM EST Blood Draw [facility] Transplant Clinic [address] [address] Sepideh Cardenas MD [address] [place] [phone] [email or web address]@[email or web address] 11/03/2025 9:40 AM EST Office Visit [facility] Transplant [address] [address] Sepideh Cardenas MD [address] [place] [address] [email or web address] Scheduled Procedures Name Priority Associated Diagnoses Date/Ti co ENDOSCOPIC RETROGRADE CHOLANGIOPANCREATOGRAPHY Encounter for pancreatic duct stent exchange 09/04/2025 8:00 AM EDT documented as of this encounter Visit Diagnoses Not on filedocumented in this encounter Care Teams Open Claims Representative Relationship Specialty Start Date End Date Manpreet Avila NP [address] [facility] [place] [address] PCP - General Family Medicine 12/29/20 Serina Peralta MD [address] [place] [address] [place] [address] Gastroenterology 04/06/22 documented as of this encounter Additional Source Comments The information contained in this document represents components of the legal health record. It is not the complete legal health record.[facility]
--- OUTSIDE RECORDS SUMMARY | 2025-08-20 15:08 | XMS_ITS | Encounter Summary ---
Author Organization [facility] Address [address] [place] [address] Phone Care Team Providers Care Health Tech Name Role Phone Manpreet Avila NP Primary Care Provider + Serina Peralta MD Unavailable [phone] Encounter Details Date Type Department Care Team (Late st Contact Info) Description 10/05/2023 Procedure Pass [facility] 4 ENDO DEPT 55 [facility], 4th [place] [address] Social History Tobacco Use Types Packs/Day Years [...] 08/21/2025 7:30 AM EDT Pre-Admission Testing [facility] Pre-Procedure Evaluation Department [place] [address] Sancho Thakur MD 55 [facility] 5 [place] [address] [email or web address] 09/02/2025 8:00 [address] EDT Blood [address] [facility] Transplant Clinic [address] [address] Sepideh Cardenas MD [address] [address] [email or web address] 09/04/[address] [facility] 4 ENDO DEPT 55 [facility], 4th [place] [address] 09/04/2025 8:00 AM EDT Hospital Encounter [facility] 4 ENDO DEPT 55 [address] [facility], 4th [place] [address] Sancho Thakur MD [address] [address] [email or web address] 09/04/2025 8:00 AM EDT - 09/04/2025 9:[address] [facility] 4 ENDO DEPT 55 [address] [facility], 4th [place] [address] Sancho Thakur MD 55 [facility] 5 [place] [address] [email or web address] ENDOSCOPIC RETROGRADE CHOLANGIOPANCREATOGRAPHY 09/29/2025 8:05 [address] EST [address] [facility] Transplant Clinic [address] [place] [address] Sepideh Cardenas MD [address] [place] [address] [email or web address] 10/27/2025 8:00 AM EST Blood [address] [facility] Transplant Clinic [address] [address] Sepideh Cardenas MD [address] [place] [address] [email or web address] 11/03/2025 9:40 AM EST Office Visit [facility] Transplant Clinic [address] [place] [address] Sepideh Cardenas MD [address] [place] [address] [email or web address] Scheduled Procedures Name Priority Associated Diagnoses Date/Ti me ENDOSCOPIC RETROGRADE CHOLANGIOPANCREATOGRAPHY Encounter for pancreatic duct stent exchange 09/04/2025 8:00 AM EDT documented as of this encounter Visit Diagnoses Not on filedocumented in this encounter Additional Health Concerns Infection Onset Date Last Indicated Resolved Time COVID-19 11/30/2023 11/30/2023 12/21/2023 1:25 AM EST documented as of this encounter Care Teams Health Tech Relationship Specialty Start Date End Date Manpreet Avila NP [facility] [place] [address] PCP - General Family Medicine 12/29/20 Serina Peralta MD [address] [place] [address] [place] [address] Gastroenterology 04/06/22 documented as of this encounter Additional Source Comments The information contained in this document represents components of the legal health record. It is not the complete legal health record.[facility]
--- OUTSIDE RECORDS SUMMARY | 2025-08-20 15:08 | XMS_ITS | Clinical Summary ---
Author Organization [facility] Address [address] [place] [address] Care Team Providers Care Metal Fitters [employer]in[employer] Name Role Phone Manpreet Avila NP Primary Care Provider [phone] Social History Tobacco Use Types Packs/Day Years [...] 50 Years) Discontinued 03/08/2019 Insurance [facility] Care Teams [employer] Relationship Specialty Start Date End Date Manpreet Avila NP [address] [place] [address] PCP - General Nurse Practitioner 01/03/22
--- OUTSIDE RECORDS SUMMARY | 2025-08-20 15:08 | XMS_ITS | Encounter Summary ---
Author Organization [facility] Address [address] [place] [address] Phone Care Team Providers Care Nutrition And Dietetics Instructor Name Role Phone Unknown, Unknown Primary Care Provider Manpreet Campbell NP Primary Care Provider + Clarita Loja MD Unavailable [phone] Serina Peralta MD Unavailable [phone] Encounter Details Date Type Department Care Team (Late st Contact Info) Description 12/25/2020 Procedure Pass [facility] Emergency Radiology, Main [address], Floor 1 [place] [address] Social History Tobacco Use Types Packs/Day Years [...] Pre-Procedure Evaluation Department Please [place] [phone] Sancho Thakur MD [address] [address] [email or web address] 09/02/2025 8:00 AM EDT Blood Draw [facility] Trans[facility] [address] [address] Sepideh Cardenas MD [address] [address] [email or web address] 09/04/2025 Procedure Pass [facility] [address] [facility], 4th [place] [address] 09/04/2025 8:00 AM EDT Hospital Encounter [facility] [address] [facility], 4th [place] [address] Sancho Thakur MD [address] [address] [email or web address] 09/04/2025 8:00 AM EDT - 09/04/2025 9:30 AM EDT Surgery [facility] [address] [facility], [address] [place] [address] Sancho Thakur MD [address] [place] [address] [email or web address] ENDOSCOPIC RETROGRADE CHOLANGIOPANCREATOGRAPHY 09/29/2025 8:05 AM EST Blood Draw [facility] Trans[facility] [address] [address] Sepideh Cardenas MD [address] [address] [email or web address] 10/27/2025 8:00 AM EST Blood Draw [facility] [address] [address] Sepideh Cardenas MD [address] [place] [address] [email or web address]@[email or web address] 11/03/2025 9:40 AM EST Office Visit [facility] [address] [address] Sepideh Cardenas MD [address] [place] [address] [email or web address] Scheduled Procedures Name Priority Associated [...] positive close contact during hospitalization at [facility] (H) on 07/30/2023. See infection control note dated 08/01/2023 for more information (this is posted as a documentation encounter which can be found under Chart Review>Encounters). 07/30/2023 08/01/2023 08/10/2023 1:22 AM E DT COVID-19 11/30/2023 11/30/2023 12/21/2023 1:25 AM EST documented as of this encounter Care Teams Nutrition And Dietetics Instructor Relationship Specialty Start Date End Date Unknown, Unknown, PCP - General 12/23/20 12/28/20 Manpreet Avila NP [address] [facility] [place] [address] PCP - General Family Medicine 12/29/20 Clarita Loja MD [address] [place] [address] Dr [address] [place] [address] Gastroenterology 02/16/21 11/22/21 Serina Perlata MD [address] [place] [address] Dr [address] [place] [address] Gastroenterology 04/06/22 documented as of this encounter Additional Source Comments The information contained in this document represents components of the legal health record. It is not the complete legal health record.[facility]
--- OUTSIDE RECORDS SUMMARY | 2025-08-20 15:08 | XMS_ITS | Encounter Summary ---
Author Organization [facility] Address [address] [place] [address] [address] [place] [address] Phone Care Team Providers Care Care Management Associate Name Role Phone Mnapreet Avila NP Primary Care Provider + Serina Peralta MD Unavailable [phone] Encounter Details Date Type Department Care Team (Late st Contact Info) Description 07/20/2023 Procedure Pass [facility] CT, [place] [address] [facility], 2nd Floor, [address] [place] [address] Social History Tobacco Use Types Packs/Day Years [...] Description 08/21/2025 7:30 AM EDT Pre-Admission Testing [facility] Pre-Procedure Evaluation Department [place] [address] Sancho Thakur MD 55 [address] [facility] 5 [place] [address] [email or web address] 09/02/2025 8:00 AM EDT Blood Draw [facility] Transplant Clinic [address] [place] [address] Sepideh Cardenas MD [address] [address] [email or web address] 09/04/2025 Procedure Pass [facility] COLT 4 ENDO DEPT 55 [facility], 4th [place] [address] 09/04/2025 8:00 AM EDT Hospital Encounter [facility] COLT 4 ENDO DEPT [address] [facility], 4th [place] [address] Sancho Thakur MD [address] [address] [email or web address] 09/04/2025 8:00 AM EDT - 09/04/2025 9:30 AM EDT Surgery [facility] COLT 4 ENDO DEPT [address] [facility], 4th [place] [address] Sancho Thakur MD [address] [address] [email or web address] ENDOSCOPIC RETROGRADE CHOLANGIOPANCREATOGRAPHY 09/29/2025 8:05 AM EST Blood Draw [facility] Transplant Clinic [address] [place] [address] Sepideh Cardenas MD [address] [place] [address] [email or web address] 10/27/2025 8:00 AM EST Blood Draw [facility] Transplant Clinic [address] [address] Sepideh Cardensa MD [address] [place] [address] [email or web address] 11/03/2025 9:40 AM EST Office Visit [facility] Transplant Clinic [address] [place] [address] Sepideh Cardenas MD [address] [place] [address] [email or web address] Scheduled Procedures Name Priority Associated [...] COVID-19 positive close contact during hospitalization at [facility] (H) on 07/30/2023. See infection control note dated 08/01/2023 for more information (this is posted as a documentation encounter which can be found under Chart Review>Encounters). 07/30/2023 08/01/2023 08/10/2023 1:22 AM E DT COVID-19 11/30/2023 11/30/2023 12/21/2023 1:25 AM EST documented as of this encounter Care Teams Care Management Associate Relationship Specialty Start Date End Date Manpreet Avila NP [facility] [place] [address] PCP - General Family Medicine 12/29/20 Serina Peralta MD [address] [place] [address] [place] [address] Gastroenterology 04/06/22 documented as of this encounter Additional Source Comments The information contained in this document represents components of the legal health record. It is not the complete legal health record.[facility]
--- OUTSIDE RECORDS SUMMARY | 2025-08-20 15:08 | XMS_ITS | Encounter Summary ---
Author Organization [facility] Address [address] [place] [address] Phone Care Team Providers Care Marketing Communications Manager Name Role Phone Manpreet Avila NP Primary Care Provider + Clarita Loja MD Unavailable [phone] Serina Peralta MD Unavailable [phone] Encounter Details Date Type Department Care Team (Late st Contact Info) Description 03/12/2021 Transcribe Orders [facility] 30 [place] [address] Rosario Adame PA-C [address] [place] [address] [email or web address] Social History Tobacco Use Types Packs/Day Years [...] Description 08/21/2025 7:30 AM EDT Pre-Admission Testing [facility] Pre-Procedure Evaluation Department [place] [address] Sancho Thakur MD [address] [address] [email or web address] 09/02/2025 8:00 AM EDT Blood Draw [facility] Transplant Clinic [address] [address] Sepideh Cardenas MD [address] [place] [address] [email or web address] 09/04/2025 Procedure Pass [facility] 4 ENDO DEPT 55 [facility], 4th [place] [address] 09/04/2025 8:00 AM EDT Hospital Encounter [facility] 4 ENDO DEPT 55 [facility], 4th [place] [address] Sancho Thakur MD [address] [place] [address] [email or web address] 09/04/2025 8:00 AM EDT - 09/04/2025 9:30 AM EDT Surgery [facility] 4 ENDO DEPT 55 [facility], 4th [place] [address] Sancho Thakur MD [address] [place] [address] [email or web address] ENDOSCOPIC RETROGRADE CHOLANGIOPANCREATOGRAPHY 09/29/2025 8:05 AM EST Blood Draw [facility] Transplant Clinic [address] [address] Sepideh Cardenas MD [address] [place] [address] [email or web address] 10/27/2025 8:00 AM EST Blood Draw [facility] Transplant Clinic [address] [place] [address] Sepideh Cardenas MD [address] [place] [address] [email or web address] 11/03/2025 9:40 AM EST Office Visit [facility] Transplant Clinic [address] [place] [address] Sepideh Cardenas MD [address] [place] [address] [email or web address] Scheduled Procedures Name Priority Associated Diagnoses [...] COVID-19 positive close contact during hospitalization at [facility] (H) on 07/30/2023. See infection control note dated 08/01/2023 for more information (this is posted as a documentation encounter which can be found under Chart Review>Encounters). 07/30/2023 08/01/2023 08/10/2023 1:22 AM E DT COVID-19 11/30/2023 11/30/2023 12/21/2023 1:25 AM EST documented as of this encounter Care Teams Marketing Communications Manager Relationship Specialty Start Date End Date Manpreet Avila NP [facility] [place] [address] PCP - General Family Medicine 12/29/20 Clarita Loja MD [address] [place] [address] [place] [address] Gastroenterology 02/16/21 11/22/21 Serina Peralta MD [address] [place] [address] [place] [address] Gastroenterology 04/06/22 documented as of this encounter Additional Source Comments The information contained in this document represents components of the legal health record. It is not the complete legal health record.[facility]
--- OUTSIDE RECORDS SUMMARY | 2025-08-20 15:08 | XMS_ITS | Encounter Summary ---
Author Organization [facility] Address [address] [place] [address] Phone Care Team Providers Care Household Worker Name Role Phone Manpreet Avila NP Primary Care Provider + Serina Peralta MD Unavailable [phone] Encounter Details Date Type Department Care Team (Late st Contact Info) Description 11/22/2022 Ancillary Orders [facility] [address] [facility] [employer] 9th [place] [address] Edgar Rodriguez MD [address] [address] [email or web address] Social History Tobacco Use Types Packs/Day [...] Description 08/21/2025 7:30 AM EDT Pre-Admission Testing [facility] Pre-Procedure Evaluation Department Please [place] [address] Sancho Thakur MD [address] [facility] 5 [place] [address] [email or web address] 09/02/2025 8:00 AM EDT Blood Draw [facility] Transplant Clinic [address] [address] Sepideh Cardenas MD [address] [address] [email or web address] 09/04/2025 Procedure Pass [facility] 4 ENDO DEPT 55 [address] [facility], 4th [place] [address] 09/04/2025 8:00 AM EDT Hospital Encounter [facility] 4 ENDO DEPT 55 [address] [facility], 4th [place] [address] Sancho Thakur MD [address] [address] [email or web address] 09/04/2025 8:00 AM EDT - 09/04/2025 9:30 AM EDT Surgery [facility] 4 ENDO DEPT [address] [facility], 4th [place] [address] Sancho Thakur MD [address] [address] [email or web address] ENDOSCOPIC RETROGRADE CHOLANGIOPANCREATOGRAPHY 09/29/2025 8:05 AM EST Blood Draw [facility] Transplant Clinic [address] [address] Sepideh Cardenas MD [address] [address] [email or web address] 10/27/2025 8:00 AM EST Blood Draw [facility] Transplant Clinic [address] [place] [address] Sepideh Cardenas MD [address] [place] [address] [email or web address] 11/03/2025 9:40 AM EST Office Visit [facility] Transplant Clinic [address] [place] [address] Sepideh Cardenas MD [address] [place] [address] [email or web address] Scheduled Procedures Name Priority Associated Diagnoses [...] COVID-19 positive close contact during hospitalization at [facility] (H) on 07/30/2023. See infection control note dated 08/01/2023 for more information (this is posted as a documentation encounter which can be found under Chart Review>Encounters). 07/30/2023 08/01/2023 08/10/2023 1:22 AM E DT COVID-19 11/30/2023 11/30/2023 12/21/2023 1:25 AM EST documented as of this encounter Care Teams Household Worker Relationship Specialty Start Date End Date Manpreet Avila NP [address] [facility] [place] [address] PCP - General Family Medicine 12/29/20 Serina Prealta MD [address] [place] [address] Dr [address] [place] [place] [address] Gastroenterology 04/06/22 documented as of this encounter Additional Source Comments The information contained in this document represents components of the legal health record. It is not the complete legal health record.[facility]
--- OUTSIDE RECORDS SUMMARY | 2025-08-20 15:08 | XMS_ITS | Encounter Summary ---
Author Organization [facility] Address [address] [place] [address] Phone Care Team Providers Care Signaler Name Role Phone Manpreet Avila NP Primary Care Provider + Serina Peralta MD Unavailable [phone] Encounter Details Date Type Department Care Team (Late st Contact Info) Description 09/21/2022 Ancillary Orders Non-Invasive Cardiology 30 [place] [address] Rosario Adame PA-C [address] [place] [address] [email or web address] Social History Tobacco Use Types Packs/Day Years [...] 08/21/2025 7:30 AM EDT Pre-Admission Testing [facility] Pre-Procedure Evaluation Department Please [place] [address] Sancho Thakur MD 55 [address] [facility] 5 [place] [address] [email or web address] 09/02/2025 8:00 AM EDT Blood Draw [facility] Transplant Clinic [address] [address] Sepideh Cardenas MD [address] [address] [email or web address]@[email or web address] 09/04/2025 Procedure Pass [facility] 4 ENDO DEPT 55 [address] [facility], 4th [place] [address] 09/04/2025 8:00 AM EDT Hospital Encounter [facility] 4 ENDO DEPT 55 [address] [facility], 4th [place] [address] Sancho Thakur MD [address] [address] [email or web address] 09/04/2025 8:00 AM EDT - 09/04/2025 9:30 AM EDT Surgery [facility] 4 ENDO DEPT 55 [address] [facility], 4th [place] [address] Sancho Thakur MD [address] [address] [email or web address] ENDOSCOPIC RETROGRADE CHOLANGIOPANCREATOGRAPHY 09/29/2025 8:05 AM EST Blood Draw [facility] Transplant Clinic [address] [address] Sepideh Cardenas MD [address] [address] [email or web address] 10/27/2025 8:00 AM EST Blood Draw [facility] Transplant Clinic [address] [place] [address] Sepideh Cardenas MD [address] [place] [address] [email or web address] 11/03/2025 9:40 AM EST Office Visit [facility] Transplant Clinic [address] [place] [address] Sepideh Cardenas MD [address] [place] [address] [email or web address] Scheduled Procedures Name Priority Associated Diagnoses Date/Ti tn ENDOSCOPIC RETROGRADE CHOLANGIOPANCREATOGRAPHY Encounter for pancreatic duct [...] positive close contact during hospitalization at [facility] (H) on 07/30/2023. See infection control note dated 08/01/2023 for more information (this is posted as a documentation encounter which can be found under Chart Review>Encounters). 07/30/2023 08/01/2023 08/10/2023 1:22 AM E DT COVID-19 11/30/2023 11/30/2023 12/21/2023 1:25 AM EST documented as of this encounter Care Teams Signaler Relationship Specialty Start Date End Date Manpreet Avila NP [facility] [address] PCP - General Family Medicine 12/29/20 Serina Peralta MD [address] [place] [address] Dr [address]y [address] [place] [address] Gastroenterology 04/06/22 documented as of this encounter Additional Source Comments The information contained in this document represents components of the legal health record. It is not the complete legal health record.[facility]
--- OUTSIDE RECORDS SUMMARY | 2025-08-20 15:08 | XMS_ITS | Encounter Summary ---
Author Organization [facility] Address [address] [place] [address] Phone Care Team Providers Care Roll Forger Name Role Phone Manpreet Avila NP Primary Care Provider + Serina Peralta MD Unavailable [phone] Encounter Details Date Type Department Care Team (Late st Contact Info) Description 05/29/2025 Procedure Pass [facility] [address] [facility], 4th [place] [address] Social History Tobacco Use Types Packs/Day Years [...] ecorded Are you denied basic needs s [facility] as food, clothing, or medical care? [...] Description 08/21/2025 7:30 AM EDT Pre-Admission Testing [facility] Pre-Procedure Evaluation Department [place] [address] Sancho Thakur MD [address] [place] [address] [email or web address] 09/02/2025 8:00 AM EDT Blood Draw [facility] Transplant Clinic [address] [place] [address] Sepideh Cardenas MD [address] [place] [address] [email or web address] 09/04/2025 Procedure Pass [facility] [address] [facility], 4th [place] [address] 09/04/2025 8:00 AM EDT Hospital Encounter [facility] [address] [facility], 4th [place] [address] Sancho Thakur MD [address] [place] [phone] [email or web address] 09/04/2025 8:00 AM EDT - 09/04/2025 9:30 AM EDT Surgery [facility] [address] [facility], 4th [place] [address] Sancho Thakur MD [address] [place] [phone] [email or web address] ENDOSCOPIC RETROGRADE CHOLANGIOPANCREATOGRAPHY 09/29/2025 8:05 AM EST Blood Draw [facility] Trans[facility] Clinic [address] [address] Sepideh Cardenas MD [address] [place] [address] [email or web address] 10/27/2025 8:00 AM EST Blood Draw [facility] Trans[facility] [address] [address] Sepideh Cardenas MD [address] [place] [address] [email or web address] 11/03/2025 9:40 AM EST Office Visit [facility] Transplant [address] [address] Sepideh Cardenas MD [address] [place] [phone] [email or web address] Scheduled Procedures Name Priority Associated Diagnoses Date/Ti tn ENDOSCOPIC RETROGRADE CHOLANGIOPANCREATOGRAPHY Encounter for pancreatic duct stent exchange 09/04/2025 8:00 AM EDT documented as of this encounter Visit Diagnoses Not on filedocumented in this encounter Care Teams Roll Forger Relationship Specialty Start Date End Date Manpreet Avila NP [address] [facility] [place] [address] PCP - General Family Medicine 12/29/20 Serina Peralta MD [address] [place] [address] [place] [address] Gastroenterology 04/06/22 documented as of this encounter Additional Source Comments The information contained in this document represents components of the legal health record. It is not the complete legal health record.[facility]
--- OUTSIDE RECORDS SUMMARY | 2025-08-20 15:08 | XMS_ITS | Encounter Summary ---
Author Organization [facility] Address [address] [place] [address] Phone Care Team Providers Care Middle [employer] Director Name Role Phone Mnapreet Avila NP Primary Care Provider + Serina Peralta MD Unavailable [phone] Encounter Details Date Type Department Care Team (Late st Contact Info) Description 08/23/2023 Procedure Pass [facility] [address] [facility], 4th [place] [address] Social History Tobacco Use Types Packs/Day Years [...] 7:30 AM EDT Pre-Admission Testing [facility] Pre-Procedure Evaluation Department Please [place] [address] Sancho Thakur MD [address] [facility] 5 [place] [address] [email or web address] 09/02/2025 8:00 AM EDT Blood Draw [facility] [address] [address] Sepideh Cardenas MD [address] [address] [email or web address] 09/04/2025 Procedure Pass [facility] 4 ENDO DE[address] [facility], 4th [place] [address] 09/04/2025 8:00 AM EDT Hospital Encounter [facility] 4 ENDO DEPT [address] [facility], 4th [place] [address] Sancho Thakur MD [address] [address] [email or web address] 09/04/2025 8:00 AM EDT - 09/04/2025 9:30 AM EDT Surgery [facility] 4 ENDO DE[address] [facility], 4th [place] [address] Sancho Thakur MD [address] [facility] 5 [place] [address] [email or web address] ENDOSCOPIC RETROGRADE CHOLANGIOPANCREATOGRAPHY 09/29/2025 8:05 AM EST Blood Draw [facility] [address] [place] [address] Sepideh Cardenas MD [address] [place] [address] [email or web address] 10/27/2025 8:00 AM EST Blood Draw [facility] [address] [address] Sepideh Cardenas MD [address] [place] [address] [email or web address] 11/03/2025 9:40 AM EST Office Visit [facility] [address] [place] [address] Sepideh Cardenas MD [address] [place] [address] [email or web address] Scheduled Procedures Name Priority Associated Diagnoses Date/Ti me ENDOSCOPIC RETROGRADE CHOLANGIOPANCREATOGRAPHY Encounter for pancreatic duct stent exchange 09/04/2025 8:00 AM EDT documented as of this encounter Visit Diagnoses Not on filedocumented in this encounter Additional Health Concerns Infection Onset Date Last Indicated Resolved Time COVID-19 11/30/2023 11/30/2023 12/21/2023 1:25 AM EST documented as of this encounter Care Teams Middle School Director Relationship Specialty Start Date End Date Manpreet Avila NP [facility] [place] [address] PCP - General Family Medicine 12/29/20 Serina Peralta MD [address] [place] [address] [place] [address] Gastroenterology 04/06/22 documented as of this encounter Additional Source Comments The information contained in this document represents components of the legal health record. It is not the complete legal health record.[facility]
--- OUTSIDE RECORDS SUMMARY | 2025-08-20 15:08 | XMS_ITS | Encounter Summary ---
Author Organization [facility] Address [address] [place] [address] Phone Care Team Providers Care Commercial Finance Manager Name Role Phone Manpreet Avila NP Primary Care Provider + Serina Peralta MD Unavailable [phone] Encounter Details Date Type Department Care Team (Late st Contact Info) Description 08/31/2022 Procedure Pass [facility], [address] [address] Social History Tobacco Use Types Packs/Day Years [...] Description 08/21/2025 7:30 AM EDT Pre-Admission Testing [facility] [place]-Procedure Evaluation Department [place] [phone] Sancho Thakur MD [address] [address] [email or web address] 09/02/2025 8:00 AM EDT Blood Draw [facility] [address] [address] Sepideh Cardenas MD [address] [address] [email or web address] 09/04/2025 Procedure Pass [facility] 4 ENDO DEPT 55 [facility], [address] [place] [address] 09/04/2025 8:00 AM EDT Hospital Encounter [facility] 4 ENDO DEPT [address] [facility], [address] [place] [address] Sancho Thakur MD [address] [address] [email or web address] 09/04/2025 8:00 AM EDT - 09/04/2025 9:30 AM EDT Surgery [facility] 4 ENDO DEPT 55 [facility], [address] [place] [address] Sancho Thakur MD [address] [place] [address] [email or web address] ENDOSCOPIC RETROGRADE CHOLANGIOPANCREATOGRAPHY 09/29/2025 8:05 AM EST Blood Draw [facility] [address] [address] Sepideh Cardenas MD [address] [address] [email or web address] 10/27/2025 8:00 AM EST Blood Draw [facility] [address] [address] Sepideh Cardenas MD [address] [place] [phone] [email or web address] 11/03/2025 9:40 AM EST Office Visit [facility] [address] [address] Sepideh Cardenas MD [address] [place] [phone] [email or web address] Scheduled Procedures Name Priority Associated Diagnoses Date/Ti wa ENDOSCOPIC RETROGRADE CHOLANGIOPANCREATOGRAPHY Encounter for pancreatic duct [...] COVID-19 positive close contact during hospitalization at [facility] ([facility]) on 07/30/2023. See infection control note dated 08/01/2023 for more information (this is posted as a documentation encounter which can be found under Chart Review>Encounters). 07/30/2023 08/01/2023 08/10/2023 1:22 AM E DT COVID-19 11/30/2023 11/30/2023 12/21/2023 1:25 AM EST documented as of this encounter Care Teams Commercial Finance Manager Relationship Specialty Start Date End Date Manpreet Avila NP [address] [place] [address] PCP - General Family Medicine 12/29/20 Seirna Peralta MD [address] [place] [address] [place] [address] Gastroenterology 04/06/22 documented as of this encounter Additional Source Comments The information contained in this document represents components of the legal health record. It is not the complete legal health record.[facility]
--- OUTSIDE RECORDS SUMMARY | 2025-08-20 15:08 | XMS_ITS | Encounter Summary ---
Author Organization [facility] Address [address] [place] [address] Phone Care Team Providers Care Speedboat Driver Name Role Phone Manpreet Avila NP Primary Care Provider + Serina Peralta MD Unavailable [phone] Encounter Details Date Type Department Care Team (Late st Contact Info) Description 11/22/2022 Ancillary Orders [facility] Imaging [address] [place] [address] Edgar Rodriguez MD 55 [facility] [address] [place] [address] [email or web address] Abnormal finding on imaging Social History Tobacco [...] 08/21/2025 7:30 AM EDT Pre-Admission Testing [facility] Pre-Procedure Evaluation Department [place] [address] Sancho Thakur MD [address] [facility] 5 [place] [address] [email or web address] 09/02/2025 8:00 AM EDT Blood Draw [facility] Transplant Clinic [address] [address] Sepideh Cardenas MD [address] [email or web address] 09/04/2025 Procedure Pass [facility] 4 ENDO DEPT [address] [facility], 4th [place] [address] 09/04/2025 8:00 AM EDT Hospital Encounter [facility] 4 ENDO [address] [facility], 4th [place] [address] Sancho Thakur MD [address] [address] [email or web address] 09/04/2025 8:00 AM EDT - 09/04/2025 9:30 AM EDT Surgery [facility] 4 ENDO DEPT [address] [facility], 4th [place] [address] Sancho Thakur MD [address] [address] [email or web address] ENDOSCOPIC RETROGRADE CHOLANGIOPANCREATOGRAPHY 09/29/2025 8:05 AM EST Blood Draw [facility] Transplant Clinic [address] [phone] Sepideh Cardenas MD [address] [address] [email or web address] 10/27/2025 8:00 AM EST Blood Draw [facility] Trans[facility] [address] [address] Sepideh Cardenas MD [address] [place] [address] [email or web address] 11/03/2025 9:40 AM EST Office Visit [facility] Transplant Clinic [address] [place] [address] Sepideh Cardenas MD [address] [place] [address] [email or web address] Scheduled Procedures Name Priority Associated Diagnoses Date/Ti nv ENDOSCOPIC RETROGRADE CHOLANGIOPANCREATOGRAPHY Encounter for pancreatic duct stent exchange 09/04/2025 8:00 AM EDT documented as of this encounter Results * MRI Abdomen Outside With Interpretation Or Consult (09/21/2022 12:00 AM EDT) 11/23/2022 4:55 PM EST Impressions [facility] - 11/23/2022 5:11 PM EST Technically suboptimal study. Cirrhotic morphology without suspicious hepatic lesion. Stable changes of PSC with no dominant stricture or enhancing mass Narrative [facility] - 11/23/2022 5:11 PM EST MRI ABDOMEN [...] with no dominant stricture or enhancing mass Edgar Rodriguez MD IMG OUTSIDE IMAGING W/ I NTERPRETATION Final Result [address] [address] documented in this encounter Visit Diagnoses Diagnosis [...] positive close contact during hospitalization at [facility] (H) on 07/30/2023. See infection control note dated 08/01/2023 for more information (this is posted as a documentation encounter which can be found under Chart Review>Encounters). 07/30/2023 08/01/2023 08/10/2023 1:22 AM E DT COVID-19 11/30/2023 11/30/2023 12/21/2023 1:25 AM EST documented as of this encounter Care Teams Speedboat Driver Relationship Specialty Start Date End Date Manpreet Avila NP [facility] [place] [address] PCP - General Family Medicine 12/29/20 Serina Peralta MD [address] [place] [address] [place] [address] Gastroenterology 04/06/22 documented as of this encounter Additional Source Comments The information contained in this document represents components of the legal health record. It is not the complete legal health record.[facility]
== END 2025-08-20 16:47 | disposition home or self-care (01) ==
LOC: HO.HMCC 13:51
PROVIDERS: PCP Nurse Practitioner Family; Visit Provider Nurse Practitioner Family
DX: Z13.9 Encounter for screening, unspecified (principal); E11.9 Type 2 diabetes mellitus without complications

== ENCOUNTER 2025-08-29 15:27 | Outpatient (AMB) | payer OTHER, SELFPAY ==
--- OUTSIDE RECORDS SUMMARY | 2025-08-29 15:30 | XMS_ITS ---
Author Name Heri Brantley Address Unknown Organization [facility] Care Team Providers Care Honey Blender Name Role Phone Unavailable Primary Care Physician Unavailab le History Of Present Illness This is a 59 year old male who is following up for dermatosis nos on the right upper back. He was seen on July 25, 2025, at which time Biopsy by Punch Method was performed. The pathology shows: Perivascular dermatitis with pigment incontinence and increased eosinophils (see comment). We recommended the following: f/u suture removal : discuss results and treatment at s/r.The patient presents for follow up evaluation and further evaluation and management.Today the patient reports: Change: worse.Interval History: Patient reports rash has spread to the rest of the body. Area is extremely itchy. Itching can be a 10. Cream helps but itching returns. Medications Medication Generic Name RxNorm Strength Strength Unit Route Dose Dose Form Frequency Date Started Date Ended Status Indication Sig triamcinolo ne acetonide triamcin olone acetonid e 0853420 0.1 % Topica l cream 08/05/20 25 active Appl y spar ingl y to rash twic e a day for up to 2 week s. aspirin 614985 81 mg Oral 1 table t,olayinka wable daily active famotidine 112848 40 mg Oral 1 table t daily active finasteride 847065 5 mg Oral 1 tabl e t daily active hydroxyzine HCl 842270 10 mg Oral 1 table t daily active Lipitor atorvast atin 20 mg Oral 1 table t daily active magnesium oxide 441069 400 mg (241.3 mg magnesium ) Oral 1 table t daily active mycophenola te mofetil 196177 250 mg Oral 1 capsu le daily1 active prednisone 448894 5 mg Oral 1 table t daily active sertraline 889362 25 mg Oral 1 table t daily active sodium,pota ssium,mag sulfates 5114203 17.5-3.13 -1.6 gram Oral Solut ion, Recon stitu dory as needed active tacrolimus 827609 1 mg Oral 1 capsu le daily active tacrolimus 201868 1 mg Oral capsu le suspend ed ursodiol 842295 300 mg Oral 1 capsu le daily active insulin glargine insulin glargine 8unit/mL Subcut aneous Insul in Pen active Lantus Solostar U-100 Insulin 632165 100 unit/mL (3 mL) Subcut aneous 1 Insul in Pen active Ozempic 7811746 1 mg/dose (4 mg/3 mL) Subcut aneous 1 Pen Injec tor weekly active Stelara 145236 90 mg/mL Subcut aneous Syrin ge active Problems Problem Code Type Status Date of Diagnosis Date of Resolution Eczema (disorder) 57532039(S NOMED) Diagnosis active 08/27/2025 Disorder of skin and/or subcutaneous tissue (disorder) 97808863(S NOMED) Diagnosis active 07/25/2025 Anxiety disorder (disorder) 438121504( SNOMED) Problem active Diabetes mellitus (disorder) 32904551(S NOMED) Problem active Hypercholesterolemia (disorder) 20267274(S NOMED) Problem active Large prostate (finding) 428542943( SNOMED) Problem active 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 Office phonenumber is [phone]. Office fax number is [phone]. Encounter Diagnosis Location Date / Time Type Perivascular Dermatitis (L30.8) [facility] 19:30:00 [facility] [address] Reason For Referral No data Procedures Procedure Date Punch biopsy (procedure) 07/25/2025 12:0 0 am [facility] Transplantation of liver (procedure) Transplantation of liver (procedure) Transplantation of liver (procedure) 06/21 023 Review Of Systems Provider reviewed on Aug 27, 2025.A focused review of systems was performed including Integumentary.No Problems With Healing And No Problems With Scarring (hypertrophic Or Keloid). Assessment 1.Perivascular Dermatitis, Status: Inadequately Controlled - Bx proven Perivascular DermatitisCounselingPrescription: betamethasone, augmented 0.05 % topical cream TPPrescription Medication Management: Initiate Treatment - -- betamethasone Aug 0.05 % topical cream: Apply sparingly to rash twice daily on the trunk, extremities, and buttocks for 1-2 weeks, then stop for 1 week. Repeat PRN.- Use gentle cleanser and moisturizer; Plan - -- Patch test if symptoms do not resolve with current treatment.- Consider NB-UVB if symptoms do not resolve.;.Medication Counseling Plan of Care Future visit for 09/24/2025 - Follow up in 4 weeks for: Focused Visit - 15 minutes. Other Instructions: For Perivascular Dermatitis f/u; ok to overbook. Other Instructions: For Perivascular Dermatitis f/u; ok to overbook. Code Detail Instructions [id number] betamethasone, augme nted 0.05 % topical cream Apply sparingly to the rash twice daily on the trunk, extremities, and buttocks for 1-2 weeks, then stop for 1 week. Repeat PRN. 8706545 triamcinolone aceton denisha 0.1 % topical cream Apply sparingly to rash twice a day for up to 2 weeks. Instructions * I counseled the patient regarding the following:Skin care: Patient instructed to use emollients.Expectations: The patient understands that there is not a definitive diagnosis at this time. Further testing or empiric therapy may be necessary to diagnose and improve the condition.Contact office if: The patient develops a fever, or rash dramatically worsens despite treatment. * Topical Steroids Counseling: I discussed with the patient that prolonged use of topical steroids can result in the increased appearance of superficial blood vessels (telangiectasias), lightening (hypopigmentation) and thinning of the skin (atrophy). The patient verbalized understanding of the proper use and possible adverse effects of topical steroids. All of the patient's questions and concerns were addressed. 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
--- NOTE | 2025-08-29 15:53 | MHC.OFFVIS ---
Intake Visit Reasons: MRI F/U Intake Note: patient presents today for: MRI follow up urology medications: finasteride, tamsulosin blood thinners: aspirin MRI done: 06/09/25 labs done 04/28/25: PSA 6.01 Photovoltaic Testing Technician Required: No Accompanied by: Self / Same As Patient Allergies No Known Allergies (No Known Allergies*) Allergy (Verified 11/05/25 14:36) HPI Comments Details: Yaya is a pleasant male. He is a patient of Dr. Craven. He has seen for the following urologic conditions - elevated PSA - lower urinary tract symptoms - prostate cancer Background diabetes and liver transplant. Recently started Ozempic. Done well from bladder Procedure Effective stream Four month follow-up repeat PSA May consider targeted cryotherapy - immunocompromise secondary to liver transplant, diabetic and inflammatory bowel disease Prostate Cancer - low volume, low-grade prostate cancer 12/14 Histologic type: Adenocarcinoma, acinar type Histologic grade: Guido score: 3+3=6 (right apex lateral - 5%), 3+4=7 (Left mid lateral - 5%) Prostate MRI shows PI-RADS 4 small lesion left side - left anterior mid 11 mm- consistent with known prostate cancer, PI-RADS 3 lesion right Lower urinary tract symptoms Primarily obstructive in nature with difficulty on urination, weakness of stream Has been on combination therapy tamsulosin and finasteride Testosterone labs T 320 LH 7.3 - suggestive of testicular resistance Cystoscopy in office Tight bladder neck Bladder Procedure 01/14 - plasma button TURP Elevated PSA Progressive PSA 04/11 2.5, 04/12 6.9, 08/13 7.5, 05/14 6.1 Has associated nocturia and previous UTI PFSH Medical History Perivascular dermatitis Ulcerative colitis Osteoporosis Ascites Hepatic encephalopathy Coagulopathy Advanced hepatic cirrhosis Fatty liver Alcohol abuse Hypoalbuminemia Coagulopathy Anemia 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 Surgical History S/P kyphoplasty Liver transplanted Hx of colonoscopy History of esophagogastroduodenoscopy (EGD) Family History Sister History of liver cancer Father Substance use disorder Social History Household Members: Spouse Household Members Other:: 2 Housing: House Are you a primary intensive care medicine specialist to a significant other at home: No Do you presently have visiting nurse or other home services: No Alcohol intake: never Comment: was medicated Patient Tobacco Use Status: Current someday Tobacco user Tobacco use type: Cigar e-Cigarette/Vaping Use: Never Used Second Hand Smoke Exposure: No Advance Directives Date on File: 12/31/21 service: No Current occupational status: disabled Cognitive needs: No Hearing needs: No Vision needs: No Review of Systems Const Denies chills and Denies fever(s) Card Reports no additional complaints and Denies syncope Resp Denies cough GI Denies abdominal pain and Denies heartburn Reports as per HPI and Denies change in libido Neuro Denies syncope Psych Denies change in libido Endo Denies change in libido Physical Exam Const General: cooperative, healthy appearing, comfortable and no acute distress Orientation/consciousness: patient oriented x3 HEENT Face and sinus: Yes normal facial exam Mouth: moist mucous membranes Neck Neck: Yes normal visual inspection, Yes full ROM and Yes trachea midline Chest Chest palpation & inspection: normal inspection of the chest Resp Effort & Inspection: normal respiratory effort, able to speak in complete sentences and no respiratory distress GI Inspection: Yes normal to inspection Back/Spine/Pelvis Cervical Spine: normal cervical lordosis Thoracic/Lumbar Spine: thoracic and lumbar spine normal to inspection Skin General skin exam: no rashes or lesions noted Neuro General: patient oriented x3, gait normal, tone normal and moves all extremities Extrem General: Yes normal to inspection and Yes capillary refill normal Assessment & Plan Assessment & Plan (1) Hormone sensitive prostate cancer: Code(s): C61 - Malignant neoplasm of prostate; Z19.1 - Hormone sensitive malignancy status Category: Medical Plan Four month follow-up PSA Orders: Orders Prostate Specific Antigen 4 Months C61 - Malignant neoplasm of prostate, Z19.1 - Hormone sensitive malignancy status Patient Instructions: This note is constructed using voice recognition software. While every effort has been made to ensure accuracy lens fabricating machine tender errors may have been included. Imaging studies, laboratory and physical exam results were discussed and reviewed in detail. No major barriers to patient understanding were identified. An opportunity to ask questions regarding the treatment plan was provided. All questions were answered. The patient expressed understanding and agreement with the above treatment plan. The patient is aware they should contact our office by phone for worsening of their current condition or the appearance of new urologic symptoms. Compliance is encouraged with any medications and followup testing that is ordered. It is a privilege to participate in the urologic care of your patient. If you have any questions or concerns regarding treatment for the above conditions, or other urologic issues, please do not hesitate to contact me. The office telephone contact is [phone]. Sincerely, Dr Arun Galaviz MD, [facility] - Urology Compassionate Specialist Care for the Genitourinary System Coding Level of Care Code Est Pt Level 3 (44386) Add On Problem Visit Only Diagnoses Hormone sensitive prostate cancer C61; Z19.1
== END 2025-08-29 16:16 | disposition home or self-care (01) ==
LOC: HO.HUSH 15:28
PROVIDERS: Visit Provider Urology
DX: C61 Malignant neoplasm of prostate (principal); Z19.1 Hormone sensitive malignancy status
CPT/HCPCS: 99213; G2211

== ENCOUNTER 2025-09-29 14:47 | Outpatient (AMB) | payer OTHER, SELFPAY ==
--- NOTE | 2025-09-29 14:59 | A.OFFVIS_ITS ---
Vital Signs 09/29/25 15:01 Height 5 ft 8 in Weight 242 lb 8.136 oz BMI 36.9 BP 130/90 H Pulse 80 Intake Visit Reasons: 4 mo f/u Intake Note: Yaya presents in the office as a 4 month follow up. CC: states he had a sever eallergic reaction but not sure what it was but was told due to a low immune system. Engineering Supervisor Required: No Allergies No Known Allergies (No Known Allergies*) Allergy (Verified 08/29/25 15:55) HPI HPI 4 mo f/u: Details: 59 yr old m here for f/u RECAP: hx of PSC and liver cirrhosis, prior alcohol xs following Mass gen for liver transplant evaluation. disease complicated by ascites and SBP in the past needing occasional therapeutic paracentesis also has UC managed with entyvio labs prior with severe vit A def not drinking alcohol (stopped 09/2020) or smoking. US 06/2022- minimal ascites, OTHER DATA: MRCP 2021: lymphadenopathy, cirrhosis, ascites, cholelithiasis, ahaustral colon MRCP 12/2020--PSc, cirrhosis, no liver masses, or lesions EGD 07/2020--varices EGD/Colonoscopy 09/2022- Endoscopy Findings: portal hypertensive gastropathy enteropathy small varices Colonoscopy Findings: polyp internal hemorrhoids diverticular disease features of chronic colitis and sequelae of healing Path: chronic mild inactive and active colitis on bx, no dysplasia, hyperplastic polyp I did w/u for worsening LFT ascitic fluid neg for SBP--only 1.9 L removed UA and culture pos for staph warneri--initially sent cipro due to pos UA but then sent bactrim once got confirmation on organism vedolizumab levels were v good HE finally had his liver transplant 06/2023-- repeat colonoscopy;01/17/24; chronic colitis and inflamamtion, lactoferrin elevated at 22 INTERIM: He was changed to skyrizi due to ongoing colitis he had stelara but had reaction no abdominal pain stools are good no blood in stool [facility] watching the LFT EXAM: GENERAL: The patient is alert, VITAL SIGNS:see workflow HEENT: normal sclerae, PERRLA, EOMI. Oropharynx clear. Moist mucous membranes. Conjunctivae appear well perfused. No thyroid mass. CHEST: Chest wall is nontender. HEART: Regular rate and rhythm without murmurs. LUNGS: Clear to auscultation bilaterally. ABDOMEN: Soft but distended, positive bowel sounds, nontender, no organomegaly.no flank tenderness--scar noted SKIN: No rash, no excessive bruising, petechiae, or purpura. NEUROLOGIC: Cranial nerves II-XII intact without motor/sensory deficit. 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-- s/p liver transplant, slight increase in LFT< being monitored 2/ UC--high risk for CRC, was taken off entyvio due to liver transplant, now ongoing inflammation on colonoscopy and lactoferrin rising--put back on entyvio but then eventuall transitioned to skyrizi, reaction to stelara 3/ rectal bleeding, stable HGB prob from hemorrhoids, PLAN: 1/ cont with skyrizi 2/ recheck lactoferrin at future date 3/ colonoscopy 1-2 yearly [facility] Medical History Perivascular dermatitis Ulcerative colitis Osteoporosis Ascites Hepatic encephalopathy Coagulopathy Advanced hepatic cirrhosis Fatty liver Alcohol abuse Hypoalbuminemia Coagulopathy Anemia 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 Surgical History S/P kyphoplasty Liver transplanted Hx of colonoscopy History of esophagogastroduodenoscopy (EGD) Family History Sister History of liver cancer Father Substance use disorder Social History Household Members: Spouse Household Members Other:: 2 Housing: House Are you a primary home care liaison to a significant other at home: No Do you presently have visiting nurse or other home services: No Alcohol intake: never Comment: was medicated Patient Tobacco Use Status: Current someday Tobacco user Tobacco use type: Cigar e-Cigarette/Vaping Use: Never Used Second Hand Smoke Exposure: No Advance Directives Date on File: 12/31/21 service: No Current occupational status: disabled Cognitive needs: No Hearing needs: No Vision needs: No Physical Exam Vital Signs: Last Vital Signs Pulse 80 09/29/25 15:01 BP 130/90 H 09/29/25 15:01 BMI result Body Mass Index 36.9 Assessment & Plan Assessment & Plan (1) Ulcerative colitis: Code(s): K51.90 - Ulcerative colitis, unspecified, without complications Category: Medical Plan: as above Coding Level of Care Code Est Pt Level 3 (23300) Diagnoses Ulcerative colitis K51.90
[2025-09-29 15:01] VITALS: BP 130/90; PULSE 80; BMI 36.9
--- OUTSIDE RECORDS SUMMARY | 2025-09-29 17:02 | XMS_ITS | Encounter Summary ---
Author Organization [facility] Address [address] [place] [address] Phone Care Team Providers Care Acute Care Physician Name Role Phone Manpreet Avila NP Primary Care Provider + Serina Peralta MD Unavailable [phone] Reason for Visit * Reason Comments Medication Refill Encounter Details Date Type Department Care Team ([facility] st Contact Info) Description 08/19/2025 Refill [facility] Trans[facility] Clinic [address] [address] Carissa Nguyen, INDUSTRIAL WASTE TREATMENT TECHNICIAN [address] [facility] [place] [address] [email or web address] Medication Refill Social History Tobacco Use Types [...] Care Team (Late st Contact Info) Description 10/27/2025 8:00 AM EST Blood Draw [facility] Transplant Clinic [address] [place] [address] Sepideh Cardenas MD [address] [place] [phone] [email or web address] 11/03/2025 9:40 AM EST Office Visit [facility] Transplant Clinic [address] [place] [address] Sepideh Cardenas MD [address] [place] [phone] [email or web address] Scheduled Procedures Name Priority Associated Diagnoses Date/Ti ut ENDOSCOPIC RETROGRADE CHOLANGIOPANCREATOGRAPHY Encounter for pancreatic duct stent exchange documented as of this encounter Visit Diagnoses Diagnosis S/P liver transplant Immunosuppression documented in this encounter Care Teams Acute Care Physician Relationship Specialty Start Date End Date Manpreet Avila NP [address] [place] [address] [place] [address] PCP - General Family Medicine 12/29/20 Serina Peralta MD [address] [place] [address] [place] [address] Gastroenterology 04/06/22 documented as of this encounter Additional Source Comments The information contained in this document represents components of the legal health record. It is not the complete legal health record.[facility]
--- OUTSIDE RECORDS SUMMARY | 2025-09-29 17:02 | XMS_ITS | Encounter Summary ---
Author Organization [facility] Address [address] [place] [address] [address] [place] [address] Phone Care Team Providers Care Otr Driver Name Role Phone Manpreet Avila NP Primary Care Provider + Serina Peralta MD Unavailable [phone] Reason for Visit * Reason Comments Medication Refill Encounter Details Date Type Department Care Team (Late st Contact Info) Description 02/23/[address], [address] Floor, [address] [place] [address] Rachel Combs, SUMMER ASSOCIATE [address] [place] [address] [email or web address] Medication Refill Social History Tobacco Use Types [...] Description 10/27/2025 8:00 AM EST Blood Draw [facility] Transplant Clinic [address] [place] [address] Sepideh Cardenas MD [address] [place] [phone] [email or web address] 11/03/2025 9:40 AM EST Office Visit [facility] Transplant Clinic [address] [place] [address] Sepideh Cardenas MD [address] [place] [phone] [email or web address] Scheduled Procedures Name Priority Associated Diagnoses Date/Ti wv ENDOSCOPIC RETROGRADE CHOLANGIOPANCREATOGRAPHY Encounter for pancreatic duct stent exchange documented as of this encounter Visit Diagnoses Not on filedocumented in this encounter Care Teams Otr Driver Relationship Specialty Start Date End Date Manpreet Avila NP [address] [place] [address] PCP - General Family Medicine 12/29/20 Serina Peralta MD [address] [place] [address] [place] [address] Gastroenterology 04/06/22 documented as of this encounter Additional Source Comments The information contained in this document represents components of the legal health record. It is not the complete legal health record.[facility]
--- OUTSIDE RECORDS SUMMARY | 2025-09-29 17:02 | XMS_ITS | Encounter Summary ---
Author Organization [facility] Address [address] [place] [address] Phone Care Team Providers Care Rubber Compounder Mixer Name Role Phone Manpreet Avila NP Primary Care Provider + Serina Peralta MD Unavailable [phone] Encounter Details Date Type Department Care Team (Late st Contact Info) Description 10/03/2024 Procedure Pass [facility] 4 ENDO DEPT [address] [facility], 4th [place] [address] Social History Tobacco Use Types Packs/Day Years [...] Upcoming Encounters Date Type Department Care Team ([facility] st Contact Info) Description 10/27/2025 8:00 AM EST Blood Draw [facility] Transplant Clinic [address] [place] [address] Sepideh Cardenas MD [address] [place] [address] [email or web address] 11/03/2025 9:40 AM EST Office Visit [facility] Transplant Clinic [address] [place] [address] Sepideh Cardenas MD [address] [place] [phone] [email or web address] Scheduled Procedures Name Priority Associated Diagnoses Date/Ti mi ENDOSCOPIC RETROGRADE CHOLANGIOPANCREATOGRAPHY Encounter for pancreatic duct stent exchange documented as of this encounter Visit Diagnoses Not on filedocumented in this encounter Care Teams Rubber Compounder Mixer Relationship Specialty Start Date End Date Manpreet Avila NP [address] [facility] [place] [address] PCP - General Family Medicine 12/29/20 Serina Peralta MD [address] [place] [address] Dr [address] [place] [address] Gastroenterology 04/06/22 documented as of this encounter Additional Source Comments The information contained in this document represents components of the legal health record. It is not the complete legal health record.[facility]
--- OUTSIDE RECORDS SUMMARY | 2025-09-29 17:02 | XMS_ITS | Encounter Summary ---
Author Organization [facility] Address [address] [place] [address] Phone Care Team Providers Care Gear Room Keeper Name Role Phone Manpreet Avila NP Primary Care Provider + Serina Peralta MD Unavailable [phone] Encounter Details Date Type Department Care Team (Late st Contact Info) Description 12/31/2024 Procedure Pass [facility] [address] [facility], 4th [place] [address] Social History Tobacco Use Types Packs/Day Years [...] ecorded Are you denied basic needs s [facility] as food, clothing, or medical [...] Description 10/27/2025 8:00 AM EST Blood Draw [facility] Transplant Clinic [address] [place] [address] Sepideh Cardenas MD [address] [place] [phone] [email or web address] 11/03/2025 9:40 AM EST Office Visit [facility] Transplant Clinic [address] [place] [address] Sepideh Cardenas MD [address] [place] [phone] [email or web address] Scheduled Procedures Name Priority Associated Diagnoses Date/Ti mo ENDOSCOPIC RETROGRADE CHOLANGIOPANCREATOGRAPHY Encounter for pancreatic duct stent exchange documented as of this encounter Visit Diagnoses Not on filedocumented in this encounter Care Teams Gear Room Keeper Relationship Specialty Start Date End Date Manpreet Avila NP [address] [place] [address] PCP - General Family Medicine 12/29/20 Serina Peralta MD [address] [place] [address] Dr [address] [place] [address] Gastroenterology 04/06/22 documented as of this encounter Additional Source Comments The information contained in this document represents components of the legal health record. It is not the complete legal health record.[facility]
--- OUTSIDE RECORDS SUMMARY | 2025-09-29 17:02 | XMS_ITS | Encounter Summary ---
Author Organization [facility] Address [address] [place] [address] Phone Care Team Providers Care Manager Truck Name Role Phone Manpreet Avila NP Primary Care Provider + Serina Peralta MD Unavailable [phone] Encounter Details Date Type Department Care Team (Late st Contact Info) Description 01/01/2024 Procedure Pass [facility] 4 ENDO DEPT 55 [facility], 4th [place] [address] Social History Tobacco Use Types Packs/Day Years [...] Description 10/27/2025 8:00 AM EST Blood Draw [facility] [address] [address] Sepideh Cardenas MD [address] [place] [phone] [email or web address] 11/03/2025 9:40 AM EST Office Visit [facility] [address] [address] Sepideh Cardenas MD [address] [place] [phone] [email or web address] Scheduled Procedures Name Priority Associated Diagnoses Date/Ti ri ENDOSCOPIC RETROGRADE CHOLANGIOPANCREATOGRAPHY Encounter for pancreatic duct stent exchange documented as of this encounter Visit Diagnoses Not on filedocumented in this encounter Care Teams Manager Truck Relationship Specialty Start Date End Date Manpreet Avila NP [address] [place] [address] [place] [address] PCP - General Family Medicine 12/29/20 Serina Peralta MD [address] [place] [address] [place] [address] Gastroenterology 04/06/22 documented as of this encounter Additional Source Comments The information contained in this document represents components of the legal health record. It is not the complete legal health record.[facility]
--- OUTSIDE RECORDS SUMMARY | 2025-09-29 17:03 | XMS_ITS | Encounter Summary ---
Author Organization [facility] Address [address] [place] [address] Phone Care Team Providers Care Retail Merchandising Coordinator Name Role Phone Manpreet Avila NP Primary Care Provider + Serina Peralta MD Unavailable [phone] Encounter Details Date Type Department Care Team (Late st Contact Info) Description 11/22/2022 Ancillary Orders [facility] Imaging [address] [place] [address] Edgar Rodriguez MD 55 [facility] [address] [place] [address] [email or web address] Abnormal finding on imaging Social History Tobacco [...] Upcoming Encounters Date Type Department Care Team ([facility] st Contact Info) Description 10/27/2025 8:00 AM EST Blood Draw [facility] Transplant Clinic [address] [address] Sepideh Cardenas MD [address] [place] [phone] [email or web address] 11/03/2025 9:40 AM EST Office Visit [facility] Transplant Clinic [address] [address] Sepideh Cardenas MD [address] [place] [phone] [email or web address] Scheduled Procedures Name Priority Associated Diagnoses Date/Ti md ENDOSCOPIC RETROGRADE CHOLANGIOPANCREATOGRAPHY Encounter for pancreatic duct stent exchange documented as of this encounter Results * MRI Abdomen Outside With Interpretation Or Consult (09/21/2022 12:00 AM EDT) 11/23/2022 4:55 PM EST Impressions [facility] - 11/23/2022 5:11 PM EST Technically suboptimal study. Cirrhotic morphology without suspicious hepatic lesion. Stable changes of PSC with no dominant stricture or enhancing mass Narrative [facility] - 11/23/2022 5:11 PM EST MRI ABDOMEN [...] OUTSIDE IMAGING W/ I NTERPRETATION Final Result [address] [address] documented in this encounter Visit Diagnoses Diagnosis Abnormal finding on imaging Other nonspecific (abnormal) findings on radiological and other examinations of body structure Abnormal finding on imaging Other nonspecific (abnormal) findings on radiological and other examinations of body structure documented in this encounter Additional Health Concerns Infection Onset Date Last Indicated Resolved Time CoV-Exposed Comment:Removed via automated background process based on negative test result 07/20/2023 07/20/2023 07/25/2023 8:33 PM E DT CoV-Exposed Comment:Patient exposed to a COVID-19 positive close contact during hospitalization at [facility] ([facility]) on 07/30/2023. See infection control note dated 08/01/2023 for more information (this is posted as a documentation encounter which can be found under Chart Review>Encounters). 07/30/2023 08/01/2023 08/10/2023 1:22 AM E DT COVID-19 11/30/2023 11/30/2023 12/21/2023 1:25 AM EST documented as of this encounter Care Teams Retail Merchandising Coordinator Relationship Specialty Start Date End Date Manpreet Avila NP [address] [place] [address] [place] [address] PCP - General Family Medicine 12/29/20 Serina Pearlta MD [address] [place] [address] [place] [address] Gastroenterology 04/06/22 documented as of this encounter Additional Source Comments The information contained in this document represents components of the legal health record. It is not the complete legal health record.[facility]
--- OUTSIDE RECORDS SUMMARY | 2025-09-29 17:03 | XMS_ITS | Encounter Summary ---
Author Organization [facility] Address [address] [place] [address] Phone Care Team Providers Care Claims Adjuster Name Role Phone Manpreet Avila NP Primary Care Provider + Serina Peralta MD Unavailable [phone] Encounter Details Date Type Department Care Team (Late st Contact Info) Description 09/04/2025 Procedure Pass [facility] [address] [facility], 4th [place] [address] Social History Tobacco Use Types Packs/Day Years Used Date Smoking Tobacco: Some Days Cigars Smokeless Tobacco: Never Comments:Quit smoking cigars [...] ecorded Are you denied basic needs s [facility] as food, clothing, or medical care? No 09/04/2025 In the past 12 months have y ou been in a relationship with a person who hurts, threatens, or tries to control you? No 09/04/2025 Are you denied basic needs s uch as food, clothing, or medical care? No 09/04/2025 In the past 12 months have y ou been in a relationship with a person who hurts, threatens, or tries to control you? No 09/04/2025 Sex and Gender Information Value Date Recorded Sex Assigned at Male 05/19/2021 9:32 AM EDT Legal Sex Male 11:49 AM EST Gender Identity Male 05/19/2021 9:32 AM EDT Sexual Orientation Straight 05/19/2021 9: 32 AM EDT documented as of this encounter Plan of Treatment Upcoming Encounters Date Type Department Care Team (Late st Contact Info) Description 10/27/2025 8:00 AM EST Blood Draw [facility] [address] [place] [address] Sepideh Cardenas MD [address] [place] [address] [email or web address] 11/03/2025 9:40 AM EST Office Visit [facility] [address] [place] [address] Sepideh Cardenas MD [address] [place] [phone] [email or web address] Scheduled Procedures Name Priority Associated Diagnoses Date/Ti nh ENDOSCOPIC RETROGRADE CHOLANGIOPANCREATOGRAPHY Encounter for pancreatic duct stent exchange documented as of this encounter Visit Diagnoses Not on filedocumented in this encounter Care Teams Claims Adjuster Relationship Specialty Start Date End Date Manpreet Avila NP [address] [facility] [place] [address] PCP - General Family Medicine 12/29/20 Serina Peralta MD [address] [place] [address] Dr [address] [place] [address] Gastroenterology 04/06/22 documented as of this encounter Additional Source Comments The information contained in this document represents components of the legal health record. It is not the complete legal health record.[facility]
--- OUTSIDE RECORDS SUMMARY | 2025-09-29 17:03 | XMS_ITS | Encounter Summary ---
Author Organization [facility] Address [address] [place] [address] [address] [place] [address] Phone Care Team Providers Care Oscillograph Technician Name Role Phone Manpreet Avila NP Primary Care Provider + Serina Peralta MD Unavailable [phone] Encounter Details Date Type Department Care Team (Late st Contact Info) Description 07/18/2023 Procedure Pass [facility], [place] 2 [address] [facility], 2nd Floor, [address] [place] [address] Social History Tobacco Use Types Packs/Day Years [...] 6:02 PM EDT Alma Marie RN * [place] Suicide Severity Rating Scale (Screener/Recent Self-Report) Question [...] Description 10/27/2025 8:00 AM EST Blood Draw [facility] [address] [place] [address] Sepideh Cardenas MD [address] [place] [phone] [email or web address] 11/03/2025 9:40 AM EST Office Visit [facility] [address] [place] [address] Sepideh Cardenas MD [address] [place] [phone] [email or web address] Scheduled Procedures Name Priority Associated Diagnoses Date/Ti [...] COVID-19 positive close contact during hospitalization at [facility] (H) on 07/30/2023. See infection control note dated 08/01/2023 for more information (this is posted as a documentation encounter which can be found under Chart Review>Encounters). 07/30/2023 08/01/2023 08/10/2023 1:22 AM E DT COVID-19 11/30/2023 11/30/2023 12/21/2023 1:25 AM EST documented as of this encounter Care Teams Oscillograph Technician Relationship Specialty Start Date End Date Manpreet Avila NP [facility] [place] [address] PCP - General Family Medicine 12/29/20 Serina Peralta MD [address] [place] [address] [place] [address] Gastroenterology 04/06/22 documented as of this encounter Additional Source Comments The information contained in this document represents components of the legal health record. It is not the complete legal health record.[facility]
--- OUTSIDE RECORDS SUMMARY | 2025-09-29 17:03 | XMS_ITS | Encounter Summary ---
Author Organization [facility] Address [address] [place] [address] Phone Care Team Providers Care Heating And Cooling Systems Engineer Name Role Phone Manpreet Avila NP Primary Care Provider + Serina Peralta MD Unavailable [phone] Encounter Details Date Type Department Care Team (Late st Contact Info) Description 04/25/2023 Transcribe Orders [facility] Main [address] [place] [address] Rosario Adame PA-C [address] [place] [address] [email or web address] Social History Tobacco Use Types Packs/Day Years [...] Description 10/27/2025 8:00 AM EST Blood Draw [facility] [address] [address] Sepideh Cardenas MD [address] [place] [phone] [email or web address] 11/03/2025 9:40 AM EST Office Visit [facility] Trans[facility] Clinic [address] [place] [address] Sepideh Cardenas MD [address] [place] [address] [email or web address] Scheduled Procedures Name Priority Associated Diagnoses Date/Ti in ENDOSCOPIC RETROGRADE CHOLANGIOPANCREATOGRAPHY Encounter for pancreatic duct [...] documented as of this encounter Care Teams Heating And Cooling Systems Engineer Relationship Specialty Start Date End Date Manpreet Avila NP [facility] [place] [address] PCP - General Family Medicine 12/29/20 Serina Peralta MD [address] [place] [address] [place] [address] Gastroenterology 04/06/22 documented as of this encounter Additional Source Comments The information contained in this document represents components of the legal health record. It is not the complete legal health record.[facility]
--- OUTSIDE RECORDS SUMMARY | 2025-09-29 17:03 | XMS_ITS | Encounter Summary ---
Author Organization [facility] Address [address] [place] [address] Phone Care Team Providers Care Manager Corporate Strategy Name Role Phone Unknown, Unknown Primary Care Provider Manpreet Campbell NP Primary Care Provider + Clarita Loja MD Unavailable [phone] Serina Peralta MD Unavailable [phone] Encounter Details Date Type Department Care Team (Late st Contact Info) Description 12/25/2020 Procedure Pass [facility] [place], [place] 2 55 [facility], 2nd Floor, [address] [place] [address] Social History Tobacco Use Types Packs/Day Years [...] Description 10/27/2025 8:00 AM EST Blood Draw [facility] [address] [facility] [address] [place] [address] Sepideh Cardenas MD [address] [facility] [address] [email or web address] 11/03/2025 9:40 AM EST Office Visit [facility] [address] [facility] [address] [place] [address] Sepideh Cardenas MD [address] [facility] [address] [email or web address] Scheduled Procedures Name Priority Associated [...] COVID-19 positive close contact during hospitalization at [facility] [place]) on 07/30/2023. See infection control note dated 08/01/2023 for more information (this is posted as a documentation encounter which can be found under Chart Review>Encounters). 07/30/2023 08/01/2023 08/10/2023 1:22 AM E DT COVID-19 11/30/2023 11/30/2023 12/21/2023 1:25 AM EST documented as of this encounter Care Teams Manager Corporate Strategy Relationship Specialty Start Date End Date Unknown, Unknown, MD PCP - General 12/23/20 12/28/20 Manpreet Avila NP [address] [place] [address] [place] [address] PCP - General Family Medicine 12/29/20 Clarita Loja MD [address] [place] [address] [place] [address] Gastroenterology 02/16/21 11/22/21 Serina Peralta MD [address] [place] [address] Dr [address] [place] [address] Gastroenterology 04/06/22 documented as of this encounter Additional Source Comments The information contained in this document represents components of the legal health record. It is not the complete legal health record.[facility]
--- OUTSIDE RECORDS SUMMARY | 2025-09-29 17:03 | XMS_ITS | Encounter Summary ---
Author Organization [facility] Address [address] [place] [address] Phone Care Team Providers Care Pai Gow Manager Name Role Phone Manpreet Avila NP Primary Care Provider + Serina Peralta MD Unavailable [phone] Encounter Details Date Type Department Care Team (Late st Contact Info) Description 06/22/2023 Ancillary Orders [facility] [address] [facility] 9th [place] [address] Edgar Rodriguez MD [address] [address] [email or web address] Social History Tobacco Use Types Packs/Day [...] Encounters Date Type Department Care Team ([facility] st Contact Info) Description 10/27/2025 8:00 AM EST Blood Draw [facility] [address] [address] Sepideh Cardenas MD [address] [place] [address] [email or web address] 11/03/2025 9:40 AM EST Office Visit [facility] [address] [place] [address] Sepideh Cardenas MD [address] [place] [address] [email or web address] Scheduled Procedures Name Priority [...] COVID-19 positive close contact during hospitalization at [facility] (H) on 07/30/2023. See infection control note dated 08/01/2023 for more information (this is posted as a documentation encounter which can be found under Chart Review>Encounters). 07/30/2023 08/01/2023 08/10/2023 1:22 AM E DT COVID-19 11/30/2023 11/30/2023 12/21/2023 1:25 AM EST documented as of this encounter Care Teams Pai Gow Manager Relationship Specialty Start Date End Date Manpreet Avila NP [address] [facility] [place] [address] PCP - General Family Medicine 12/29/20 Serina Peralta MD [address] [place] [address] [place] [address] Gastroenterology 04/06/22 documented as of this encounter Additional Source Comments The information contained in this document represents components of the legal health record. It is not the complete legal health record.[facility]
--- OUTSIDE RECORDS SUMMARY | 2025-09-29 17:03 | XMS_ITS | Encounter Summary ---
Author Organization [facility] Address [address] [place] [address] Phone Care Team Providers Care Bank Accountant Name Role Phone Manpreet Avila NP Primary Care Provider + Serina Peralta MD Unavailable [phone] Encounter Details Date Type Department Care Team (Late st Contact Info) Description 10/05/2023 Procedure Pass [facility] 4 ENDO DEPT 55 [facility], 4th [place] [address] Social History Tobacco Use Types Packs/Day Years [...] Description 10/27/2025 8:00 AM EST Blood Draw [facility] [address] [address] Sepideh Cardenas MD [address] [place] [address] [email or web address] 11/03/2025 9:40 AM EST Office Visit [facility] [address] [address] Sepideh Cardenas MD [address] [place] [address] [email or web address] Scheduled Procedures Name Priority Associated Diagnoses Date/Ti al ENDOSCOPIC RETROGRADE CHOLANGIOPANCREATOGRAPHY Encounter for pancreatic duct stent exchange documented as of this encounter Visit Diagnoses Not on filedocumented in this encounter Additional Health Concerns Infection Onset Date Last Indicated Resolved Time COVID-19 11/30/2023 11/30/2023 12/21/2023 1:25 AM EST documented as of this encounter Care Teams Bank Accountant Relationship Specialty Start Date End Date Manpreet Avila NP [address] [place] [address] [place] [address] PCP - General Family Medicine 12/29/20 Serina Peralta MD [address] [place] [address] [place] [address] Gastroenterology 04/06/22 documented as of this encounter Additional Source Comments The information contained in this document represents components of the legal health record. It is not the complete legal health record.[facility]
--- OUTSIDE RECORDS SUMMARY | 2025-09-29 17:03 | XMS_ITS | Encounter Summary ---
Author Organization [facility] Address [address] [place] [address] Phone Care Team Providers Care Road Equipment Operator Name Role Phone Manpreet Avila NP Primary Care Provider + Serina Peralta MD Unavailable [phone] Encounter Details Date Type Department Care Team (Late st Contact Info) Description 05/29/2025 Procedure Pass [facility] 4 ENDO DEPT 55 [facility], 4th [place] [address] Social History Tobacco Use Types Packs/Day Years [...] ecorded Are you denied basic needs s [facility] as food, clothing, or medical care? [...] Description 10/27/2025 8:00 AM EST Blood Draw [facility] [address] [place] [address] Sepideh Cardenas MD [address] [place] [phone] [email or web address] 11/03/2025 9:40 AM EST Office Visit [facility] [address] [place] [address] Sepideh Cardenas MD [address] [place] [address] [email or web address] Scheduled Procedures Name Priority Associated Diagnoses Date/Ti ms ENDOSCOPIC RETROGRADE CHOLANGIOPANCREATOGRAPHY Encounter for pancreatic duct stent exchange documented as of this encounter Visit Diagnoses Not on filedocumented in this encounter Care Teams Road Equipment Operator Relationship Specialty Start Date End Date Manpreet Avila NP [address] [facility] [place] [address] PCP - General Family Medicine 12/29/20 Serina Peralta MD [address] [place] [address] Dr [address] [place] [address] Gastroenterology 04/06/22 documented as of this encounter Additional Source Comments The information contained in this document represents components of the legal health record. It is not the complete legal health record.[facility]
--- OUTSIDE RECORDS SUMMARY | 2025-09-29 17:03 | XMS_ITS ---
Author Organization [facility] Address [address] [place] [address] [place] [address] Phone Care Team Providers Care Torch Operator Name Role Phone Manpreet Avila NP Primary Care Provider + Serina Peralta MD Unavailable [phone] Transplant Episode Liver Recipient [facility] [place]) - [facility] Organ Received: Liver Transplanted on 07/19/2023 Marked as Active Follow-up on 07/19/2023 Liver CoordinatorCathie Burdick RN Fax: N/A Email: [email or web address] Organ Diagnosis Organ Primary Contributory Liver Primary [...] Fax Email Cathie Burdick RN Liver Coordinator [phone] N/A [email or web address] Rosario Adame PA-C Physician Outreach Analyst [phone] [email or web address] Edgar Rodriguez MD Transplant Medical Physician [phone] [email or web address] Ramonita Watson [facility] Package Dyer [phone] [email or web address] Sepideh Cardenas MD Post-Transplant Physician Transplant Surgeon [phone] [email or web address] Crystal Chen, TETON Dietitian [phone] N/A [email or web address] Carissa Nguyen, JOURNEYMAN LINEMAN Nurse Practitioner [phone] [email or web address]. [facility] Piper Caceres Supervisor Rice Milling [phone] [email or web address] Serina Peralta MD Referring Physician [phone] N/A Events Post-Transplant Pre-Transplant Admitted: 07/18/2023 Referred: 02/16/2021 Transplanted: 07/19/2023 Evaluation began: 04/23/202 1 Discharged: 07/31/2023 Committee: 06/02/2021 Center waitlisted: 1 Appointments (08/29/2025 - 10/29/2025) When With Visit Type Description 09/02/2025 Transplant Blood Check Late Post Transplant No Show 09/04/2025 Radiology - Coleman Thakur ENDOSCOP IC RETROGRADE BILIARY AND PANCREATIC (ERCP) Other postprocedural complications and disorders of digestive system 09/29/2025 Transplant Blood Check Late Post Transplant 10/27/2025 Transplant Blood Check Late Post Transplant
--- OUTSIDE RECORDS SUMMARY | 2025-09-29 17:03 | XMS_ITS | Encounter Summary ---
Author Organization [facility] Address [address] [place] [address] Phone Care Team Providers Care Remote Sensing Engineer Name Role Phone Unknown, Unknown Primary Care Provider Manpreet Campbell NP Primary Care Provider + Clarita Loja MD Unavailable [phone] Serina Peralta MD Unavailable [phone] Encounter Details Date Type Department Care Team (Late st Contact Info) Description 12/25/2020 Procedure Pass [facility] Emergency Radiology, Main [address], Floor 1 [place] [address] Social History Tobacco Use Types Packs/Day Years [...] Description 10/27/2025 8:00 AM EST Blood Draw [facility] Transplant Clinic [address] [facility] [address] [place] [address] Sepideh Cardenas MD 55 [facility] [place] [address] [email or web address] 11/03/2025 9:40 AM EST Office Visit [facility] Transplant Clinic [address] [facility] [address] [place] [address] Sepideh Cardenas MD 55 [facility] [place] [address] [email or web address] Scheduled Procedures Name Priority Associated Diagnoses [...] COVID-19 positive close contact during hospitalization at [facility] (H) on 07/30/2023. See infection control note dated 08/01/2023 for more information (this is posted as a documentation encounter which can be found under Chart Review>Encounters). 07/30/2023 08/01/2023 08/10/2023 1:22 AM E DT COVID-19 11/30/2023 11/30/2023 12/21/2023 1:25 AM EST documented as of this encounter Care Teams Remote Sensing Engineer Relationship Specialty Start Date End Date Unknown, Unknown, MD PCP - General 12/23/20 12/28/20 Manpreet Avila NP [address] [place] [address] [place] [address] PCP - General Family Medicine 12/29/20 Clarita Loja MD [address] [place] [address] [place] [address] Gastroenterology 02/16/21 11/22/21 Serina Peralta MD [address] [place] [address] Dr [address] [place] [address] Gastroenterology 04/06/22 documented as of this encounter Additional Source Comments The information contained in this document represents components of the legal health record. It is not the complete legal health record.[facility]
--- OUTSIDE RECORDS SUMMARY | 2025-09-29 17:03 | XMS_ITS | Clinical Summary ---
Author Organization [facility] Address [address] [place] [phone] Phone Care Team Providers Care Junior Database Administrator Name Role Phone Manpreet Avila NP Primary Care Provider + Serina Peralta MD Unavailable Allergies No known active allergies Medications sertraline (ZOLOFT) 25 MG tablet Take 25 mg by mouth daily. Active blood-glucose Misc meter Insurance covered brand glucometer 1 each 07/27/20 Active GLUCOSE BLOOD test strip INSURANE COVERED brand test strips. Test up to 2 times a day, as directed. 60 strip 07/27/20 Active lancets Misc Test up to2 times a day, as directed. 60 each 07/27/20 23 Active alcohol PadM Use 2 times a day, as directed. 60 each 07/27/20 Active acetaminophen (TYLENOL) 325 mg tablet Take 2 tablets (650 mg total) by mouth every 8 (eight) hours as needed for pain (specific location in comments). 0 07/31/20 Active omeprazole (PRILOSEC) 40 MG capsule Take 1 capsule (40 mg total) by mouth daily before breakfast. 30 capsule 2 08/23/20 Active Additional Information Patient not taking.Reported on 09/04/2025 insulin glargine 100 unit/mL (3 mL) InPn injection pen Inject 8 Units under the skin nightly at bedtime. Active atorvastatin (LIPITOR) 20 MG tablet Take 20 mg by mouth daily. Active ursodioL (ACTIGALL) 300 mg capsuleIndicat ions:S/P liver transplant,Imm unosuppression Take 2 capsules (600 mg total) by mouth 2 (two) times a day. 120 capsule 11 11/25/19 25 Active mycophenolate mofetil (CELLCEPT) 250 mg capsuleIndicat ions:S/P liver transplant,Imm unosuppression Take 2 capsules (500 mg total) by mouth every morning AND 2 capsules (500 mg total) every evening. 360 capsule 3 02/15/20 25 026 Active magnesium oxide (MAG-OX) 400 mg (241.3 mg elemental) tabletIndicati ons:Hypomagnes emia,Status post liver transplant Take 1 tablet (400 mg total) by mouth daily. 30 tablet 11 07/16/20 25 Active tacrolimus (PROGRAF) 1 MG capsuleIndicat ions:S/P liver transplant,Imm unosuppression Take 2 capsules (2 mg total) by mouth every morning AND 2 capsules (2 mg total) every evening. 120 capsule 11 08/06/20 25 026 Active aspirin 81 mg chewable tablet CHEW AND SWALLOW 1 TABLET BY MOUTH ONCE DAILY 30 tablet 9 09/18/20 25 Active aspirin 81 mg chewable tablet CHEW AND SWALLOW 1 TABLET(81 MG) BY MOUTH DAILY 30 tablet 11 08/21/20 24 025 Discontinued Active Problems Patient Care Coordination No te Formatting of this note is d ifferent from the original. Yaya Howell [id number] Type of Transplant: DCD LIVER Date of [...] call PCP if sugars over 200 consistently. Drains/Foleys/Sutures/Truro: Priti incision cdi and SOCIAL WORK THERAPIST, sealed with dermabond - 1 AFUA to RLQ , REMOVED on 07/28/23 - Sutures old to AFUA sites. - Stitches to neck and groin removed - Naches tolliver to incision Insurance Issues:Home with PT Additional Information: INITIAL post op in ICU required numerous blood products Volume overload, required extended stay for IV diuresis. Oral lasix plan at DC: Lasix 80 TID, Aldactone 75mg Follow up 1. Labs: [facility]dered and scheduled for [facility] for , 08/03/2023 at: [facility] [address] [place] [address] 2. 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 Assessment & Plan (12/29/2020 9:21 AM EST): Diagnosed in 1999; followed by Dr. Loja at [facility]. Cirrhosis likely multifactorial in setting of primary [...] Followed by Dr. Loja of hepatology at [facility]. - CA 19-9 10 - AFP 2.3 [...] [facility] [address] [place] [address] Sepideh Cardenas MD 5 Refill [facility] [address] [place] [address] Carissa Nguyen, MALVIN Medication Refill 5 8:15 AM EDT - 5 11:59 PM EDT Hospital Encounter [facility] GI Endoscopy, [facility] 4 [address] [facility], [address]th [place] [address] Sancho Thakur MD Discharge Disposition: Home or Self Care 5 8:00 AM EDT - 5 9:30 AM EDT Surgery [facility] COLT [address] END[address] [place] [address], [address] [place] [address] Sancho Thakur MD ENDOSCOPIC RETROGRADE CHOLANGIOPANCREATOGRAPHY 5 7:45 AM EDT Anesthesia Event [facility] COLT 4 ENDO DEPT [address] [place] [address], [address] [place] [address] Mohamud Raines MD [place], Kimi Spencer RN 5 6:57 AM EDT - 5 9:17 AM EDT Hospital Encounter [facility] COLT 4 ENDO DEPT [address] [place] [address], [address]th [place] [address] Sancho Thakur MD Discharge Disposition: Home or Self Care 5 Orders Only [facility] [address] [place] [address], 5[address] [place] [address] Sancho Thakur MD Encounter for pancreatic duct stent exchange (Primary Dx) 5 Procedure Pass [facility] COLT 4 ENDO DEPT [address] [place] [address], [address] [place] [address] 5 Orders Only [facility] [address] [place] [address] Sepideh Cardenas MD 5 7:30 AM EDT Pre-Admission Testing [facility] Pre-Procedure Evaluation Department Please [place] [address] Sancho Thakur MD 5 Telephone [facility] [address] [place] [address] Cathie Burdick, MILAGRO 5 Orders Only [facility] [address] [address] Sepideh Cardenas MD 5 Orders Only [facility] [address] [address] Sepideh Cardenas MD 5 Refill [facility] [address] [address] Carissa Nguyen, CONCRETE MIXING PLANT SUPERINTENDENT Medication Refill 5 Refill [facility] [address] [address] Cathie Burdick, manager distribution Dose Change 5 Telephone [facility] [address] [place] [address] Cathie Burdick, MILAGRO 5 Orders Only [facility] [address] [place] [address] Sepideh Cardenas MD 5 Orders Only [facility] [address] [address] Sepideh Cardenas MD 5 Refill [facility] [address] [address] Staci Reddy, MILAGRO 5 Orders Only [facility] [address] [address] Sepideh Cardenas MD 5 Refill [facility] [address] [address] Dinah Gonzalez, MILAGRO 5 Orders Only [facility] [address] [address] Sepideh Cardenas MD 5 Telephone [facility] [address] [address] Cathie Burdick, MILAGRO 5 Orders Only [facility] [address] [address] Sepideh Cardenas MD from Last 3 Months [...] Tobacco: Some Days Cigars Smokeless Tobacco: Never Tobacco Cessation:Ready to Q uit: Not Asked; Counseling Given: Not Answered Comments:Quit smoking cigars 2 [...] ecorded Are you denied basic needs [facility] as food, clothing, or medical care? No 09/04/2025 In the past 12 months have y ou been in a relationship with a person who hurts, threatens, or tries to control you? No 09/04/2025 Are you denied basic needs [facility] as food, clothing, or medical care? [...] Sign Reading Time Taken Comments Blood Pressure 132/79 09/04/2025 9:14 AM EDT Pulse 62 09/04/2025 9:14 AM EDT Temperature 36 C (96.8 F) 09/04/2025 8:59 AM EDT Respiratory Rate 18 09/04/2025 9:14 AM EDT Oxygen Saturation 97% 09/04/2025 9:14 AM EDT Inhaled Oxygen Concentration 28% 07/21/2023 1 0:25 AM EDT Weight 107.5 kg (237 lb) 08/21/2025 7:34 AM EDT Height 172.7 cm (5' 8 ) 08/21/2025 7:34 AM EDT Body Mass Index 36.04 08/21/2025 7:34 AM EDT Plan of Treatment Upcoming Encounters Date Type Department Care Team ([facility] st Contact Info) Description 10/27/2025 8:00 AM EST Blood Draw [facility] [address] [place] [address] Sepideh Cardenas MD [address] [place] [address] [email or web address] 11/03/2025 9:40 AM EST Office Visit [facility] [address] [place] [address] Sepideh Cardenas MD [address] [place] [phone] [email or web address] Scheduled Procedures Name Priority Associated Diagnoses Date/Ti me ENDOSCOPIC RETROGRADE CHOLANGIOPANCREATOGRAPHY Encounter for pancreatic duct stent exchange Health Maintenance Due Date Last Done Comments DEPRESSION SCREENING 1978 ZOSTER VACCINES (1 of 2) 1985 COLOGUARD 2011 FIT TEST 2011 SIGMOIDOSCOPY 2011 VIRTUAL COLONOSCOPY 2011 FOBT 08/21/2013 08/21/2012 RSV VACCINE (1 - Risk 50-74 years 1-dose series) 2016 COVID-19 VACCINE (3 - Pfizer risk series) 04/08/2021 03/11/2021, 02/16/2021 INFLUENZA VACCINE (#1) 2025 , 01/18/2023, 12/15/2020, Additional history exists LIPID PANEL 12/27/2025 12/27/2020, 03/08/2019 SMOKING Hx and SMOKELESS TOBACCO SCREENING 09/04/2026 09/04/2025 SCREENING FOR DIABETES 09/18/2028 09/18/2025 COLONOSCOPY 09/28/2032 09/28/2022 COLORECTAL CANCER SCREENING 09/28/2032 Adult Td,Tdap Booster 02/28/2033 02/28/2023, 018 HEPATITIS C SCREENING Completed 09/04/2023 , 09/04/2023, 09/04/2023, Additional history exists HIV ONE-TIME SCREENING (18-65 YEARS) Completed 09/04/2023 PNEUMOCOCCAL VACCINES (50+ years) Completed 05/05/2025, 11/22/2024, 03/08/2019 HIB VACCINES Aged Out No longer eligi ble based on patient's age to complete this topic IPV VACCINES Aged Out No longer eligi ble based on patient's age to complete this topic MENINGOCOCCAL VACCINES (ACWY) Aged Out No longer eligible based on patient's age to complete this topic MENINGOCOCCAL VACCINES (B) Aged Out N o longer eligible based on patient's age to complete this topic Medical Devices Implanted Type Area Electric Motor Assembler And Tester Device Identifier Shelf Expiration Date Model / Serial / Lot Stent Cotton-Vera 10fr 3.7mm 9cm .035in Otw Biliary Catheter Polyethylene Distal Flap Curved Shape Tapered Tip - [id number] Implanted:Qty: 1 on 09/04/2025 by Sancho Thakur MD at [facility] STANDARD Bile [employer] [id number] 05/19/2028 CLSO-10- 9 / / [id number] Stent Cotton-Vera 10fr 3.7mm 9cm .035in Otw Biliary Catheter Polyethylene Distal Flap Curved Shape Tapered Tip - [id number] Implanted:Qty: 1 on 09/04/2025 by Dayne Carias MD at [facility] STANDARD [employer] [id number] 05/19/2028 CLSO-10- 9 / / [id number] Stent Cotton-Vera 10fr 3.7mm 9cm .035in Otw Biliary Catheter Polyethylene Distal Flap Curved Shape Tapered Tip - [id number] Implanted:Qty: 1 on 09/04/2025 by Dayne Carias MD at [facility] STANDARD [employer]ile [employer] [id number] 06/25/2028 CLSO-10- 9 / / [id number] Explanted Type Area Electric Motor Assembler And Tester Device Identifier Shelf Expiration Date Model / Serial / Lot Stent Cotton-Vera 10fr 3.7mm 9cm .035in Otw Biliary Catheter Polyethylene Distal Flap Curved Shape Tapered Tip - [id number] Implanted:Qty: 1 on 08/23/2023 by Sancho Thakur MD at [facility] Explanted:Qty: 1 on 12/31/2024 by Sancho Thakur MD at [facility] STANDARD Bile [employer] 05/23/2026 CLSO-10- 9 / / Stent Cotton-Vera 10fr 3.7mm 9cm .035in Otw Biliary Catheter Polyethylene Distal Flap Curved Shape Tapered Tip - [id number] Implanted:Qty: 1 on 10/03/2024 by Val Gomez MD at [facility] Explanted:Qty: 1 on 12/31/2024 by Sancho Thakur MD at [facility] STANDARD Bile [employer] [id number] 08/07/2027 CLSO-10- 9 / / [id number] Stent Cotton-Vera 10fr 3.7mm 9cm .035in Otw Biliary Catheter Polyethylene Distal Flap Curved Shape Tapered Tip - [id number] Implanted:Qty: 1 on 10/03/2024 by Val Gomez MD at [facility] Explanted:Qty: 1 on 12/31/2024 at [facility] STANDARD B[employer] [id number] 08/07/2027 CLSO-10- 9 / / [id number] Stent Cotton-Vera 10fr 3.7mm 9cm .035in Otw Biliary Catheter Polyethylene Distal Flap Curved Shape Tapered Tip - [id number] Implanted:Qty: 1 on 12/31/2024 by Sancho Thakur MD at [facility] Explanted:Qty: 1 on 03/17/2025 by Sancho Thakur MD at [facility] [employer]ARD [employer] [id number] 10/25/2027 CLSO-10- 9 / / [id number] Stent Cotton-Vera 10fr 3.7mm 9cm .035in Otw Biliary Catheter Polyethylene Distal Flap Curved Shape Tapered Tip - [id number] Implanted:Qty: 1 on 12/31/2024 by Sancho Thakur MD at [facility] Explanted:Qty: 1 on 03/17/2025 by Sancho Thakur MD at [facility] [employer]ARD [employer] [id number] 10/03/2027 CLSO-10- 9 / / [id number] Stent Cotton-Vera 10fr 3.7mm 9cm .035in Otw Biliary Catheter Polyethylene Distal Flap Curved Shape Tapered Tip - [id number] Implanted:Qty: 1 on 03/17/2025 by Sancho Thakur MD at [facility] Explanted:Qty: 1 on 05/29/2025 by Sancho Thakur MD at [facility] STANDARD [employer] [id number] 12/26/2027 CLSO-10- 9 / / [id number] Stent Cotton-Vera 10fr 3.7mm 9cm .035in Otw Biliary Catheter Polyethylene Distal Flap Curved Shape Tapered Tip - [id number] Implanted:Qty: 1 on 03/17/2025 by Sancho Thakur MD at [facility] Explanted:Qty: 1 on 05/29/2025 by Sancho Thakur MD at [facility] STANDARD [employer] [id number] 12/26/2027 CLSO-10- 9 / / [id number] Stent Cotton-Vera 10fr 3.7mm 9cm .035in Otw Biliary Catheter Polyethylene Distal Flap Curved Shape Tapered Tip - [id number] Implanted:Qty: 1 on 03/17/2025 by Sancho Thakur MD at [facility] Explanted:Qty: 1 on 05/29/2025 by Sancho Thakur MD at [facility] STANDARD [employer] [id number] 12/26/2027 CLSO-10- 9 / / [id number] Stent Cotton-Vera 10fr 3.7mm 9cm .035in Otw Biliary Catheter Polyethylene Distal Flap Curved Shape Tapered Tip - [id number] Implanted:Qty: 3 on 05/29/2025 by Sancho Thakur MD at [facility] Explanted:Qty: 3 on 09/04/2025 by Sancho Thakur MD at [facility] STANDARD Bile Duct [employer] [id number] 12/25/2027 CLSO-10- 9 / / [id number] Stent Johlin 10fr 22fr 3.7mm .035in Pancreatic Wedge - [id number] Implanted:Qty: 1 on 10/05/2023 by Sancho Thakur MD at [facility] Explanted:Qty: 1 on 12/31/2024 by Sancho Thakur MD at [facility] [employer] [id number] 08/03/2026 JPWS-10- 22 / / [id number] Description:10 x 17 Stent Johlin 10fr 22fr 3.7mm .035in Pancreatic Wedge - [id number] Implanted:Qty: 1 on 10/05/2023 by Sancho Thakur MD at [facility] Explanted:Qty: 1 on 12/31/2024 by Sancho Thakur MD at [facility] [employer] [id number] 08/01/2026 JPWS-10- 22 / / [id number] Description:10 x 13 Stent Cotton-Vera 8.5fr 9cm .035in Otw Biliary Catheter Plastic Flaps - [id number] Implanted:Qty: 1 on 12/31/2024 by Sancho Thakur MD at [facility] Explanted:Qty: 1 on 03/17/2025 by Sancho Thakur MD at [facility] [employer] [id number] 09/21/2025 CLSO-8.5 -9 / / [id number] Procedures Procedure Name Priority Date/Time Associated Diagnosis Comments COMPREHENSIVE METABOLIC PANE L (CMP) Routine 09/18/2025 8:20 AM EDT PHOSPHORUS Routine 09/18/2025 8:20 AM EDT MAGNESIUM Routine 09/18/2025 8:20 AM EDT BILIRUBIN, DIRECT Routine 09/18/2025 8:20 AM EDT TACROLIMUS LEVEL Routine 09/18/2025 8:20 AM EDT CBC AND DIFFERENTIAL Routine 09/18/2025 8:20 AM EDT FL ENDOSCOPIC RETROGRADE BILIARY ONLY Routine 09/04/2025 8:41 AM EDT ENDOSCOPY PROCEDURE 09/04/2025 8:20 AM EDT AIRWAY PLACEMENT Routine 09/04/2025 8:07 AM EDT ENDOSCOPIC RETROGRADE CHOLANGIOPANCREATOGRAPHY 09/04/2025 8:00 AM EDT Encounter for pancreatic duct stent exchange Special Needs Not on AC. Prep to pt ins - AC 07/01/25 POCT GLUCOSE Routine 09/04/2025 7:48 AM EDT TACROLIMUS LEVEL Routine 09/03/2025 8:04 AM EDT COMPREHENSIVE METABOLIC PANE L (CMP) Routine 09/03/2025 8:04 AM EDT PHOSPHORUS Routine 09/03/2025 8:04 AM EDT MAGNESIUM Routine 09/03/2025 8:04 AM EDT BILIRUBIN, DIRECT Routine 09/03/2025 8:04 AM EDT CBC AND DIFFERENTIAL Routine 09/03/2025 8:04 AM EDT TACROLIMUS LEVEL Routine 08/20/2025 8:14 AM EDT CBC AND DIFFERENTIAL Routine 08/20/2025 8:14 AM EDT COMPREHENSIVE METABOLIC PANE L (CMP) Routine 08/20/2025 8:14 AM EDT PHOSPHORUS Routine 08/20/2025 8:14 AM EDT MAGNESIUM Routine 08/20/2025 8:14 AM EDT BILIRUBIN, DIRECT Routine 08/20/2025 8:14 AM EDT POST-TRANSPLANT, HEPATITIS B VIRUS DNA, RT-PCR, PLASMA Routine 08/20/2025 8:11 AM EDT TACROLIMUS LEVEL Routine 08/04/2025 8:18 AM EDT CBC AND DIFFERENTIAL Routine 08/04/2025 8:18 AM EDT COMPREHENSIVE METABOLIC PANE L (CMP) Routine 08/04/2025 8:18 AM EDT PHOSPHORUS Routine 08/04/2025 8:18 AM EDT MAGNESIUM Routine 08/04/2025 8:18 AM EDT BILIRUBIN, DIRECT Routine 08/04/2025 8:18 AM EDT TACROLIMUS LEVEL Routine 07/25/2025 8:11 AM EDT CBC AND DIFFERENTIAL Routine 07/25/2025 8:11 AM EDT COMPREHENSIVE METABOLIC PANE L (CMP) Routine 07/25/2025 8:11 AM EDT PHOSPHORUS Routine 07/25/2025 8:11 AM EDT MAGNESIUM Routine 07/25/2025 8:11 AM EDT BILIRUBIN, DIRECT Routine 07/25/2025 8:11 AM EDT TACROLIMUS LEVEL Routine 07/15/2025 8:13 AM EDT COMPREHENSIVE METABOLIC PANE L (CMP) Routine 07/15/2025 8:13 AM EDT PHOSPHORUS Routine 07/15/2025 8:13 AM EDT MAGNESIUM Routine 07/15/2025 8:13 AM EDT BILIRUBIN, DIRECT Routine 07/15/2025 8:13 AM EDT CBC AND DIFFERENTIAL Routine 07/15/2025 8:13 AM EDT COMPREHENSIVE METABOLIC PANE L (CMP) Routine 07/10/2025 8:24 AM EDT PHOSPHORUS Routine 07/10/2025 8:24 AM EDT MAGNESIUM Routine 07/10/2025 8:24 AM EDT BILIRUBIN, DIRECT Routine 07/10/2025 8:24 AM EDT TACROLIMUS LEVEL Routine 07/10/2025 8:24 AM EDT CBC AND DIFFERENTIAL Routine 07/10/2025 8:24 AM EDT COMPREHENSIVE METABOLIC PANE L (CMP) Routine 07/04/2025 8:14 AM EDT PHOSPHORUS Routine 07/04/2025 8:14 AM EDT MAGNESIUM Routine 07/04/2025 8:14 AM EDT BILIRUBIN, DIRECT Routine 07/04/2025 8:14 AM EDT TACROLIMUS LEVEL Routine 07/04/2025 8:14 AM EDT CBC AND DIFFERENTIAL Routine 07/04/2025 8:14 AM EDT HEPATITIS C ANTIBODY, QUALITATIVE Routine 09/04/2023 8:50 AM EDT S/P liver transplant HM COLONOSCOPY FOR RESULT ENTRY ONLY Routine 09/28/2022 LIPID PANEL Routine 12/27/2020 4:02 AM EST from Last 3 Months or Most Recently Relevant to Health Maintenance Results * (ABNORMAL) Comprehensive metabolic panel (09/18/2025 8:20 AM EDT) Only the most recent of8 resultswithin the time period is included. Glucose 100(H) 65 - 99 mg/dL [email or web address] Comment: Fasting reference interval For someone without known diabetes, a glucose value between 100 and 125 mg/dL is consistent with prediabetes and should be confirmed with a follow-up test. Urea Nitrogen (BUN) 23 7 - 25 mg/dL [email or web address] Creatinine 1.47(H) 0.70 - 1.30 mg/dL [email or web address] EGFR 55(L) > OR = 60 mL/min/1. 73m2 [email or web address] BUN/Creatinine Ratio 16 6 - 22 (calc) [email or web address] Sodium 138 135 - 146 mmol/L [email or web address] Potassium 5.0 3.5 - 5.3 mmol/L [email or web address] Chloride 108 98 - 110 mmol/L [email or web address] Carbon Dioxide 21 20 - 32 mmol/L [email or web address] Calcium 9.0 8.6 - 10.3 mg/dL [email or web address] Protein, Total 6.7 6.1 - 8.1 g/dL [email or web address] Albumin 3.7 3.6 - 5.1 g/dL [email or web address] Globulin 3.0 1.9 - 3.7 g/dL (calc) [email or web address] Albumin/Globulin Ratio 1.2 1.0 - 2.5 (calc) [email or web address] Bilirubin, Total 0.4 0.2 - 1.2 mg/dL [email or web address] Alkaline Phosphatase 136 35 - 144 U/L [email or web address] AST 18 10 - 35 U/L [email or web address] ALT 16 9 - 46 U/L [email or web address] 09/18/2025 8:20 AM EDT 09/18/2025 10:03 AM EDT Narrative [facility] - 09/19/2025 1:09 AM EDT FASTING:YES FASTING: YES us Sepideh Cardenas MD LAB BLOOD BKR ORDERABLES Final R esult Performing Organization Address [facility] de Phone Number [facility] [place] [phone], [facility] [email or web address] [address] [place] [phone] * Tacrolimus level (09/18/2025 8:20 AM EDT) Only the most recent of8 resultswithin the time period is included. [facility] Signature Tacrolimus 5.9 mcg/L [email or web address] Comment: No definitive therapeutic or toxic ranges have been established. Optimal blood drug levels are influenced by type of transplant, patient response, time post- transplant, co-administration of other drugs, and drug formulation. The following trough range is a suggested guideline: 5.0-20.0 mcg/L. This test was developed and its analytical performance characteristics have been determined by [employer]. It has not been cleared or approved by the FDA. This assay has been validated pursuant to the CLIA regulations and is used for clinical purposes. 09/18/2025 8:20 AM EDT 09/18/2025 10:03 AM EDT Narrative [facility] [place] [address] - 09/19/2025 1:09 AM EDT FASTING:YES FASTING: YES us Sepideh Cardenas MD LAB BLOOD BKR ORDERABLES Final R esult Performing Organization Address [facility]/ZIP Co de Phone Number [facility] [place] [address],[place] [phone], [facility] [email or web address] [address] [place] [phone] * (ABNORMAL) CBC and differential (09/18/2025 8:20 AM EDT) Only the most recent of8 resultswithin the time period is included. WBC 4.3 3.8 - 10.8 Thousand/ uL [email or web address] Red Blood Cell 4.63 4.20 - 5.80 Million/u L [email or web address] Hemoglobin 13.1(L) 13.2 - 17.1 g/dL [email or web address] Hematocrit 42.0 38.5 - 50.0 % [facility] [employer] [place] MCV 90.7 80.0 - 100.0 fL [email or web address] MCH 28.3 27.0 - 33.0 pg [email or web address] MCHC 31.2(L) 32.0 - 36.0 g/dL [email or web address] Comment: For adults, a slight decrease in the calculated MCHC value (in the range of 30 to 32 g/dL) is most likely not clinically significant; however, it should be interpreted with caution in correlation with other red cell parameters and the patient's clinical condition. RDW 12.9 11.0 - 15.0 % [email or web address] Platelet Count 283 140 - 400 Thousand/ uL [email or web address] MPV 9.8 7.5 - 12.5 fL [email or web address] Absolute Neutrophils 2,356 1,500 - 7,800 cells/uL [email or web address] Absolute Lymphocytes 1,200 850 - 3,900 cells/uL [email or web address] Absolute Monocytes 546 200 - 950 cells/uL [email or web address] Absolute Eosinophils 168 15 - 500 cells/uL [email or web address] Absolute Basophils 30 0 - 200 cells/uL [email or web address] Neutrophils 54.8 % [facility] [employer] [place] Lymphocytes 27.9 % [facility] [employer] [place] Monocytes 12.7 % [email or web address] Eosinophils 3.9 % [email or web address] Basophils 0.7 % [email or web address] 09/18/2025 8:20 AM EDT 09/18/2025 10:03 AM EDT Narrative [facility] [address] - 09/19/2025 1:09 AM EDT FASTING:YES FASTING: YES us Sepideh Cardenas MD LAB BLOOD BKR ORDERABLES Final R esult Performing Organization Address [facility] de Phone Number [facility] [place] [address],[place] [address], [facility] [email or web address] [address] [place] [phone] * Phosphorus (09/18/2025 8:20 AM EDT) Only the most recent of8 resultswithin the time period is included. Phosphate ( Phosphorus) 3.4 2.5 - 4.5 mg/dL [email or web address] 09/18/2025 8:20 AM EDT 09/18/2025 10:03 AM EDT Narrative [facility] - 09/19/2025 1:09 AM EDT FASTING:YES FASTING: YES us Sepideh Cardenas MD LAB BLOOD BKR ORDERABLES Final R esult Performing Organization Address [facility] de Phone Number [employer] [place] [employer] [facility]-[address] [place] [phone], [facility] [email or web address] [address] [place] [phone] * Magnesium (09/18/2025 8:20 AM EDT) Only the most recent of8 resultswithin the time period is included. Magnesium 1.7 1.5 - 2.5 mg/dL [email or web address] 09/18/2025 8:20 AM EDT 09/18/2025 10:03 AM EDT [employer] - 09/19/2025 1:09 AM EDT FASTING:YES FASTING: YES us Sepideh Cardenas MD LAB BLOOD BKR ORDERABLES Final R esult Performing Organization Address [facility]/ZIP Co de Phone Number [address] [phone], [facility] [email or web address] [address] [place] [phone] * Bilirubin, direct (09/18/2025 8:20 AM EDT) Only the most recent of8 resultswithin the time period is included. Bilirubin, direct 0.1 < OR = 0.2 mg/dL [email or web address] 09/18/2025 8:20 AM EDT 09/18/2025 10:03 AM EDT Narrative [employer] [address] - 09/19/2025 1:09 AM EDT FASTING:YES FASTING: YES us Sepideh Cardenas MD LAB BLOOD BKR ORDERABLES Final R esult Performing Organization Address [facility] Co de Phone Number [address],[facility] [place] [phone], [facility] [email or web address] [address] [place] [phone] * FL ENDOSCOPIC RETROGRADE BILIARY ONLY (09/04/2025 8:41 AM EDT) Anatomical Region Laterality Modality Abdomen Radio Fluoroscop y 09/04/2025 3:15 PM EDT Narrative 09/04/2025 3:15 PM EDT Dose (mGy): 126 Dose Area Product (DAP): 78841 Dose Area Product (DAP) Units: cGy.cm2 Fluoro time (min): 2.3 Radimetrics Dose Report: CTDIvol: 0 mGy. DLP: 0 mGy-cm. Procedure Note Nanny/Household Manager, Dictation - 09/04/2025 Dose (mGy): 126 Dose Area Product (DAP): 62842 Dose Area Product (DAP) Units: cGy.cm2 Fluoro time (min): 2.3 Radimetrics Dose Report: CTDIvol: 0 mGy. DLP: 0 mGy-cm. us Sancho Thakur MD IMG FL EXAMS Final Result * ENDOSCOPY PROCEDURE (09/04/2025 8:20 AM EDT) 09/04/2025 8:20 AM EDT Narrative Transcriptions Sancho Thakur MD - 09/04/2025 8:20 AM EDT Gastrointestinal Endoscopy Unit Patient Name: Yaya Howell Exam Date: 09/04/2025 8:20 AM Date of : 1965 Admit Type: Outpatient Age: 59 Room: [place] [address] Gender: Male Note Status: Finalized Attending MD: Sancho Thakur MD, Procedure: ERCP Indications: Stent change, post liver transplant assessment Providers: Sancho Thakur MD, Dayne Carias Patient Profile: This is a 59 year old male. Refer to note in patient chart for documentation of history and physical. Referring MD: Manpreet Avila (Referring MD), Pilo Casarez (Referring MD), Sepideh Cardenas (Referring MD) Medicines: General Anesthesia, Zosyn 3.375 mg IV Complications: No immediate complications. Procedure: After obtaining informed consent, the endoscope was passed under direct vision. Throughout the procedure, the patient's blood pressure, pulse, and oxygen saturations were monitored continuously. The Duodenoscope was introduced through the mouth, and used to inject contrast into and used to inject contrast into the bile duct. The ERCP was accomplished without difficulty. The patient tolerated the procedure well. Findings: A steam fitter helper film of the abdomen was obtained. Stent(s) and surgical clips were seen. The esophagus was successfully intubated under direct vision without detailed examination of the pharynx, larynx, and associated structures, and upper GI tract. The upper GI tract was grossly normal. Three plastic biliary stents originating in the common bile duct were emerging from the major papilla. The stents were partially occluded. A biliary sphincterotomy had been performed. The sphincterotomy appeared open. Three stents were removed from the common bile duct using a rat-toothed forceps. A long 0.035 inch Soft Jagwire was passed into the biliary tree. The 8.5 mm balloon was passed over the guidewire and the bile duct was then deeply cannulated. The biliary tree was swept with an 8.5 mm balloon starting at the bifurcation. Nothing was found. Contrast was injected. I personally interpreted the bile duct images. Ductal flow of contrast was adequate. Image quality was adequate. Contrast extended to the hepatic ducts. The post-transplant anastomosis contained a single mild stenosis, improved from prior. Two 10 Fr by 9 cm plastic biliary stents with a single external flap and a single internal flap were placed 8 cm into the right hepatic duct, and one 10 Fr by 9 cm plastic biliary stent with a single external flap and a single internal flap was placed 8 cm into the left hepatic duct. Bile flowed through the stents. The stents were in good position. Impression: - ERCP with removal of three 10F plastic stents - Mild persistence of anastomotic stricture at the duct to duct anastomosis, improved from prior - Placement of three new 10F x 9 cm biliary stents Recommendation: - Discharge patient to home (with escort). - Patient has a contact number available for emergencies. The signs and symptoms of potential delayed complications were discussed with the patient. Return to normal activities tomorrow. Written discharge instructions were provided to the patient. - Watch for pancreatitis, bleeding, perforation, and cholangitis. - repeat ERCP in 10-12 weeks - Liquids for first meal, then advance to regular diet as tolerated tonight. Attending Participation: I was present and participated during the entire procedure, including non-cortez portions. Sancho Thakur MD, [id number] 09/04/2025 9:38:34 AM The attending physician was present throughout the entire procedure. Dayne Carias, , [id number] Number of Addenda: 0 Note Initiated On: 09/04/2025 8:20 AM Manpreet Avila NP GI PROCEDURE ORDERABLES Final Result * ANES ETT DOUBLE LUMEN - AIRWAY LDA (09/04/2025 8:07 AM EDT) Narrative Angel Lott MD - 09/04/2025 8:07 AM EDT Angel Lott MD 09/04/2025 8:07 AM Airway Placement Procedure Note: Patient was not difficult to intubate. Procedure performed by: fellow/resident/DRAGLINE OPERATOR HELPER Anesthesiologist: Mhoamud Raines MD Fellow/Resident/DRAGLINE OPERATOR HELPER: Angel Lott MD Airway procedure initiated at:09/04/2025 8:07 AM and ended at 09/04/2025 8:07 AM. Mask Ventilation: Quality: not attempted Airway Placement: Technique: video laryngoscopy Details: Blade type: Glidescope Blade size: 4 Video view: grade 1 Number of attempts: 1 ETT type: cuffed ETT size: 7.5 ETT depth at teeth: 23 ETT cuff inflation volume: 8 Tube position confirmed by: bilateral breath sounds and EtCO2 Outcomes: Evidence of dental injury? no Complications observed? no us Mohamud Raines MD [place] ANESTHESIA Final Res ult * POCT Glucose (09/04/2025 7:48 AM EDT) Pathologist [facility] Glucose, POCT 93 70 - 110 mg/dL [facility] 09/04/2025 7:48 AM EDT 09/04/2025 7:55 AM EDT us Sancho Thakur MD POINT OF CARE TEST ORDERABLES F inal Result [facility] [address] [place] [address] * Post-Transplant, Hepatitis B Virus DNA, RT-PCR, plasma (08/20/2025 8:11 AM EDT) [facility] HBV DNA, Quantitative PCR <10 Not Detected IU/mL [facility] [place] [place] [facility] HBV DNA, Quantitative PCR <1.00 Not Detected Log IU/mL [facility] [place] [facility] Comment: Reference Range: Not Detected If you have a question or concern regarding this report please contact us at: [email or web address] ( ) 08/20/2025 8:11 AM EDT 08/20/2025 8:13 AM EDT Narrative [facility] - 08/22/2025 8:13 AM EDT FASTING:YES FASTING: YES us Sepideh Cardenas MD LAB BLOOD BKR ORDERABLES Final R esult [facility] [place] [address] [place], [place] [facility] [address] [facility] [place] [address] * Hepatitis C antibody, qualitative (09/04/2023 8:50 AM EDT) Pathologist [facility] HCV ANTIBODY Negative Negative [facility] Comment:Antibodies to HCV no t detected. Does not exclude the possibility of exposure to HCV. 09/04/2023 8:50 AM EDT 09/04/2023 1:00 PM EDT Sepideh Cardenas MD LAB BLOOD BKR ORDERABLES Final R esult [address] [address] * COLONOSCOPY FOR RESULT ENTRY ONLY (09/28/2022) Pathologist [facility] Colonoscopy Normal terminal ileum, Cecum and Descending colon : Scarred Mucosa, Ascending and transverse colon: Mild Patchy erythema, 6-8 mm sessile polyp in sigmoid colon, internal hemorrhoids in rectum, diverticular disease, Path: A. Small intestinal mucosa, Comment:B.Chronic inactive c olitis.C.Transverse colon biopsy:Chronic active colitis D.Colon,Sigmoid,polypectomy:Hyperplastic mucosal polyp.E.Biopsy:Focally active,proctitis.Done At [facility] Historical Provider HEALTH MAINTENANCE Edited Result - Final * (ABNORMAL) Lipid panel (12/27/2020 4:02 AM EST) Pathologist [facility] HDL 49 35 - 100 mg/dL [facility] [...] 4:02 AM EST 12/27/2020 4:58 AM EST us Rosaline Cai BALL TRUING MACHINE OPERATOR LAB BLOOD BKR CHONG WONG Final Result [address] [address] from Last 3 Months or Most Recently Relevant to Health Maintenance Insurance MEDICARE A [facility] PPO [facility] MEDICARE A S Member Subscriber Plan / Payer (Ef fective 2025-Present) Name:HowellGisela goinsh Relation to Subscriber:Self Name:Dante Yaya Payer ID:Not on file Type:PPO Address: [place] [id number] MEDICARE A MEDICARE A S MEDICARE A S MEDICARE A S MEDICARE A Advance Directives For more information, please contact: [phone] (9AM - 5PM [place], Monday-Monday) Documents on File Type Date Recorded Patient Apparel Pattern Maker Expl anation Healthcare Proxy 03/17/2021 4:57 PM * Full Code (Latest Code Status on File) Date Activated Date Inactivated Comments 07/18/2023 1:13 PM Question Answer Comments Code Status Confirmed With: Patient * Full Code Date Activated Date Inactivated Comments 12/25/2020 2:53 PM 07/18/2023 1:13 PM Question Answer Comments Code Status Confirmed With: Patient Care Teams Junior Database Administrator Relationship Specialty Start Date End Date Manpreet Avila NP 1960 [facility] [place] [address] PCP - General Family Medicine 12/29/20 Serina Peralta MD [address] [place] [address] [place] [address] Gastroenterology 04/06/22 Additional Source Comments The information contained in this document represents components of the legal health record. It is not the complete legal health record.[facility]
--- OUTSIDE RECORDS SUMMARY | 2025-09-29 17:03 | XMS_ITS | Encounter Summary ---
Author Organization [facility] Address [address] [place] [address] Phone Care Team Providers Care Irrigator Overhead Name Role Phone Manpreet Avila NP Primary Care Provider + Serina Peralta MD Unavailable [phone] Encounter Details Date Type Department Care Team (Late st Contact Info) Description 11/22/2022 Ancillary Orders [facility] [address] [facility] 9th [place] [address] Edgar Rodriguez MD [address] [address] [email or web address] Social History Tobacco Use Types [...] Description 10/27/2025 8:00 AM EST Blood Draw [facility] [address] [address] Sepideh Cardenas MD [address] [address] [email or web address] 11/03/2025 9:40 AM EST Office Visit [facility] [address] [address] Sepideh Cardenas MD [address] [place] [phone] [email or web address] Scheduled Procedures Name Priority Associated Diagnoses Date/Ti [...] COVID-19 positive close contact during hospitalization at [facility] (H) on 07/30/2023. See infection control note dated 08/01/2023 for more information (this is posted as a documentation encounter which can be found under Chart Review>Encounters). 07/30/2023 08/01/2023 08/10/2023 1:22 AM E DT COVID-19 11/30/2023 11/30/2023 12/21/2023 1:25 AM EST documented as of this encounter Care Teams Irrigator Overhead Relationship Specialty Start Date End Date Manpreet Avila NP [address] [place] [address] PCP - General Family Medicine 12/29/20 Serina Peralta MD [address] [place] [address] [place] [address] Gastroenterology 04/06/22 documented as of this encounter Additional Source Comments The information contained in this document represents components of the legal health record. It is not the complete legal health record.[facility]
--- OUTSIDE RECORDS SUMMARY | 2025-09-29 17:03 | XMS_ITS | Encounter Summary ---
Author Organization [facility] Address [address] [place] [phone] Phone Care Team Providers Care Coding Specialist Home Health Name Role Phone Manpreet Avila NP Primary Care Provider + Serina Peralta MD Unavailable [phone] Encounter Details Date Type Department Care Team (Late st Contact Info) Description 08/23/2023 Procedure Pass [facility] 4 ENDO DEPT 55 [facility], 4th [place] [address] Social History Tobacco Use Types Packs/Day Years [...] Description 10/27/2025 8:00 AM EST Blood Draw [facility] [address] [address] Sepideh Cardenas MD [address] [place] [phone] [email or web address] 11/03/2025 9:40 AM EST Office Visit [facility] [address] [address] Sepideh Cardenas MD [address] [place] [phone] [email or web address] Scheduled Procedures Name Priority Associated Diagnoses Date/Ti nh ENDOSCOPIC RETROGRADE CHOLANGIOPANCREATOGRAPHY Encounter for pancreatic duct stent exchange documented as of this encounter Visit Diagnoses Not on filedocumented in this encounter Additional Health Concerns Infection [place] Date Last Indicated Resolved Time COVID-19 11/30/2023 11/30/2023 12/21/2023 1:25 AM EST documented as of this encounter Care Teams Coding Specialist Home Health Relationship Specialty Start Date End Date Manpreet Avila NP [address] [place] [address] [place] [address] PCP - General Family Medicine 12/29/20 Serina Peralta MD [address] [place] [address] [place] [address] Gastroenterology 04/06/22 documented as of this encounter Additional Source Comments The information contained in this document represents components of the legal health record. It is not the complete legal health record.[facility]
--- OUTSIDE RECORDS SUMMARY | 2025-09-29 17:03 | XMS_ITS | Encounter Summary ---
Author Organization [facility] Address [address] [place] [address] Phone Care Team Providers Care Family Readiness Support Assistant Name Role Phone Manpreet Avila NP Primary Care Provider + Clarita Loja MD Unavailable Serina Peralta MD Unavailable [phone] Encounter Details Date Type Department Care Team (Late st Contact Info) Description 03/12/2021 Transcribe Orders [facility] [address] [place] [address] Rosario Adame PA-C [address] [place] [phone] [email or web address] Social History Tobacco Use Types Packs/Day Years [...] [facility] [address] [address] Sepideh Cardenas MD [address] [place] [phone] [email or web address] 11/03/2025 9:40 AM EST Office Visit [facility] [address] [address] Sepideh Cardenas MD [address] [place] [phone] [email or web address] Scheduled Procedures Name Priority Associated Diagnoses Date/Ti ne ENDOSCOPIC RETROGRADE CHOLANGIOPANCREATOGRAPHY Encounter for pancreatic duct stent exchange documented as of this encounter Visit Diagnoses Not on filedocumented in this encounter Additional Health Concerns Infection [place] Date Last Indicated Resolved Time CoV-Exposed Comment:Removed via automated background process based on negative test result 07/20/2023 07/20/2023 07/25/2023 8:33 PM E DT CoV-Exposed Comment:Patient exposed to a COVID-19 positive close contact during hospitalization at [facility] (H) on 07/30/2023. See infection control note dated 08/01/2023 for more information (this is posted as a documentation encounter which can be found under Chart Review>Encounters). 07/30/2023 08/01/2023 08/10/2023 1:22 AM E DT COVID-19 11/30/2023 11/30/2023 12/21/2023 1:25 AM EST documented as of this encounter Care Teams Family Readiness Support Assistant Relationship Specialty Start Date End Date Manpreet Avila NP [address] [place] [address] PCP - General Family Medicine 12/29/20 Clarita Loja MD [address] [place] [address] [address] [address] Gastroenterology 02/16/21 11/22/21 Serina Peralta MD [address] [place] [address] Dr [address] [place] [address] Gastroenterology 04/06/22 documented as of this encounter Additional Source Comments The information contained in this document represents components of the legal health record. It is not the complete legal health record.[facility]
--- OUTSIDE RECORDS SUMMARY | 2025-09-29 17:03 | XMS_ITS | Encounter Summary ---
Author Organization [facility] Address [address] [place] [address] Phone Care Team Providers Care Rewinder Name Role Phone Manpreet Avila NP Primary Care Provider + Serina Peralta MD Unavailable [phone] Encounter Details Date Type Department Care Team (Late st Contact Info) Description 06/07/2023 Procedure Pass [address] [place] [address] Social History Tobacco Use Types Packs/Day Years [...] Upcoming Encounters Date Type Department Care Team ([facility] st Contact Info) Description 10/27/2025 8:00 AM EST Blood Draw [facility] [address] [address] Sepideh Cardenas MD [address] [place] [phone] [email or web address] 11/03/2025 9:40 AM EST Office Visit [facility] [address] [address] Sepideh Cardenas MD [address] [place] [phone] [email or web address] Scheduled Procedures Name Priority Associated Diagnoses Date/Ti [...] positive close contact during hospitalization at [facility] (H) on 07/30/2023. See infection control note dated 08/01/2023 for more information (this is posted as a documentation encounter which can be found under Chart Review>Encounters). 07/30/2023 08/01/2023 08/10/2023 1:22 AM E DT COVID-19 11/30/2023 11/30/2023 12/21/2023 1:25 AM EST documented as of this encounter Care Teams Rewinder Relationship Specialty Start Date End Date Manpreet Avila NP [address] [place] [address] PCP - General Family Medicine 12/29/20 Serina Peralta MD [address] [place] [address] Dr [address] [place] [address] Gastroenterology 04/06/22 documented as of this encounter Additional Source Comments The information contained in this document represents components of the legal health record. It is not the complete legal health record.[facility]
--- OUTSIDE RECORDS SUMMARY | 2025-09-29 17:03 | XMS_ITS | Encounter Summary ---
Author Organization [facility] Address [address] [place] [address] [address] [place] [address] Phone Care Team Providers Care Transportation Aide Name Role Phone Manpreet Avila NP Primary Care Provider + Serina Peralta MD Unavailable [phone] Encounter Details Date Type Department Care Team (Late st Contact Info) Description 07/20/2023 Procedure Pass [facility] [place], [place] [address] [facility], 2nd Floor, [address] [place] [address] Social History Tobacco Use Types Packs/Day Years [...] Encounters Date Type Department Care Team ([facility] st Contact Info) Description 10/27/2025 8:00 AM EST Blood Draw [facility] [address] [address] Sepideh Cardenas MD [address] [place] [phone] [email or web address] 11/03/2025 9:40 AM EST Office Visit [facility] [address] [address] Sepideh Cardenas MD [address] [place] [phone] [email or web address] Scheduled Procedures Name Priority Associated Diagnoses Date/Ti ok ENDOSCOPIC RETROGRADE CHOLANGIOPANCREATOGRAPHY Encounter for pancreatic duct stent exchange documented as of this encounter Visit Diagnoses Not on filedocumented in this encounter Additional Health Concerns Infection [place] Date Last Indicated Resolved Time CoV-Exposed Comment:Removed via automated background process based on negative test result 07/20/2023 07/20/2023 07/25/2023 8:33 PM E DT CoV-Exposed Comment:Patient exposed to a COVID-19 positive close contact during hospitalization at [facility] [place] on 07/[place]/2023. See infection control note dated 08/01/2023 for more information (this is posted as a documentation encounter which can be found under Chart Review>Encounters). 07/30/2023 08/01/2023 08/10/2023 1:22 AM E DT COVID-19 11/30/2023 11/30/2023 12/21/2023 1:25 AM EST documented as of this encounter Care Teams Transportation Aide Relationship Specialty Start Date End Date Manpreet Avila NP [address] [place] [address] PCP - General Family Medicine 12/29/20 Serina Peralta MD [address] [place] [address] Dr [address] [place] [address] Gastroenterology 04/06/22 documented as of this encounter Additional Source Comments The information contained in this document represents components of the legal health record. It is not the complete legal health record.[facility]
--- OUTSIDE RECORDS SUMMARY | 2025-09-29 17:03 | XMS_ITS | Encounter Summary ---
Author Organization [facility] Address [address] [place] [address] Phone Care Team Providers Care Wearing Apparel Presser Name Role Phone Manpreet Avila NP Primary Care Provider + Serina Peralta MD Unavailable [phone] Encounter Details Date Type Department Care Team (Late st Contact Info) Description 08/31/2022 Procedure Pass [facility], [address] [address] Social History Tobacco Use Types Packs/Day Years [...] Description 10/27/2025 8:00 AM EST Blood Draw [facility] [address] [facility] [address] [place] [address] Sepideh Cardenas MD [address] [facility] [place] [address] [email or web address] 11/03/2025 9:40 AM EST Office Visit [facility] [address] [facility] [address] [place] [address] Sepideh Cardenas MD [address] [facility] [phone] [email or web address] Scheduled Procedures Name Priority Associated Diagnoses [...] COVID-19 positive close contact during hospitalization at [facility] (H) on 07/30/2023. See infection control note dated 08/01/2023 for more information (this is posted as a documentation encounter which can be found under Chart Review>Encounters). 07/30/2023 08/01/2023 08/10/2023 1:22 AM E DT COVID-19 11/30/2023 11/30/2023 12/21/2023 1:25 AM EST documented as of this encounter Care Teams Wearing Apparel Presser Relationship Specialty Start Date End Date Manpreet Avila NP [facility] [place] [address] PCP - General Family Medicine 12/29/20 Serina Peralta MD [address] [place] [address] [place] [address] Gastroenterology 04/06/22 documented as of this encounter Additional Source Comments The information contained in this document represents components of the legal health record. It is not the complete legal health record.[facility]
--- OUTSIDE RECORDS SUMMARY | 2025-09-29 17:03 | XMS_ITS | Encounter Summary ---
Author Organization [facility] Address [address] [place] [address] Phone Care Team Providers Care Embedded Software Engineer Name Role Phone Manpreet Avila NP Primary Care Provider + Serina Peralta MD Unavailable [phone] Encounter Details Date Type Department Care Team (Late st Contact Info) Description 03/17/2025 Procedure Pass [facility] 4 ENDO DEPT [address] [facility], 4th [place] [address] Social History Tobacco Use Types Packs/Day Years [...] ecorded Are you denied basic needs s [facility] as food, clothing, or medical care? [...] 10/27/2025 8:00 AM EST Blood Draw [facility] [address] [place] [address] Sepideh Cardenas MD [address] [place] [phone] [email or web address] 11/03/2025 9:40 AM EST Office Visit [facility] [address] [place] [address] Sepideh Cardenas MD [address] [place] [phone] [email or web address] Scheduled Procedures Name Priority Associated Diagnoses Date/Ti ak ENDOSCOPIC RETROGRADE CHOLANGIOPANCREATOGRAPHY Encounter for pancreatic duct stent exchange documented as of this encounter Visit Diagnoses Not on filedocumented in this encounter Care Teams Embedded Software Engineer Relationship Specialty Start Date End Date Manpreet Avila NP [address] [facility] [place] [address] PCP - General Family Medicine 12/29/20 Serina Peralta MD [address] [place] [address] [address] [place] [address] Gastroenterology 04/06/22 documented as of this encounter Additional Source Comments The information contained in this document represents components of the legal health record. It is not the complete legal health record.[facility]
--- OUTSIDE RECORDS SUMMARY | 2025-09-29 17:03 | XMS_ITS | Clinical Summary ---
Author Organization [facility] Address [address] [place] [address] Care Team Providers Care Dye Machine Tender Name Role Phone Manpreet Avila NP Primary Care Provider [phone] Social History Tobacco Use Types Packs/Day Years [...] (6 to 49 Years) Discontinued 03/08/2019 Insurance [facility] Care Teams Dye Machine Tender Relationship Specialty Start Date End Date Manpreet Avila NP [address] [place] [address] PCP - General Nurse Practitioner 01/03/22
--- OUTSIDE RECORDS SUMMARY | 2025-09-29 17:03 | XMS_ITS | Encounter Summary ---
Author Organization [facility] Address [address] [place] [address] Phone Care Team Providers Care Mexican Food Machine Tender Name Role Phone Manpreet Avila NP Primary Care Provider + Serina Peralta MD Unavailable [phone] Encounter Details Date Type Department Care Team (Late Contact Info) Description 09/21/2022 Ancillary Orders Non-Invasive Cardiology 30 [place] [address] Rosario Adame PA-C [address] [place] [address] [email or web address] Social History Tobacco Use Types Packs/Day Years [...] Description 10/27/2025 8:00 AM EST Blood Draw [facility] Transplant Clinic [address] [address] Sepideh Cardenas MD [address] [place] [phone] [email or web address] 11/03/2025 9:40 AM EST Office Visit [facility] Transplant [facility] [address] [address] Sepideh Cardenas MD [address] [place] [phone] [email or web address] Scheduled Procedures Name Priority Associated Diagnoses Date/Ti [...] COVID-19 positive close contact during hospitalization at [facility] (H) on 07/30/2023. See infection control note dated 08/01/2023 for more information (this is posted as a documentation encounter which can be found under Chart Review>Encounters). 07/30/2023 08/01/2023 08/10/2023 1:22 AM E DT COVID-19 11/30/2023 11/30/2023 12/21/2023 1:25 AM EST documented as of this encounter Care Teams Mexican Food Machine Tender Relationship Specialty Start Date End Date Manpreet Avila NP [address] [facility] [place] [address] PCP - General Family Medicine 12/29/20 Serina Peralta MD [address] [place] [address] [place] [address] Gastroenterology 04/06/22 documented as of this encounter Additional Source Comments The information contained in this document represents components of the legal health record. It is not the complete legal health record.[facility]
--- OUTSIDE RECORDS SUMMARY | 2025-09-29 17:03 | XMS_ITS | Encounter Summary ---
Author Organization [facility] Address [address] [place] [address] Phone Care Team Providers Care Line Person Name Role Phone Manpreet Avila NP Primary Care Provider + Serina Peralta MD Unavailable [phone] Encounter Details Date Type Department Care Team (Late st Contact Info) Description 07/19/[address] [facility] PERIOPERATIVE DEPT [address] [place] [phone] Social History Tobacco Use Types Packs/Day Years [...] Upcoming Encounters Date Type Department Care Team ([facility] st Contact Info) Description 10/27/2025 8:00 [address] EST Blood [address] [facility] Transplant Clinic [address] [address] Sepideh Cardenas MD [address] [place] [phone] [email or web address] 11/03/2025 9:40 AM EST Office Visit [facility] Transplant Clinic [address] [address] Sepideh Cardenas MD [address] [place] [phone] [email or web address] Scheduled Procedures Name Priority Associated Diagnoses Date/Ti ma ENDOSCOPIC RETROGRADE CHOLANGIOPANCREATOGRAPHY Encounter for pancreatic duct stent exchange documented as of this encounter Visit Diagnoses Not on filedocumented in this encounter Additional Health Concerns Infection Onset Date Last Indicated Resolved Time CoV-Exposed Comment:Removed via automated background process based on negative test result 07/20/2023 07/20/2023 07/25/2023 8:33 PM E DT CoV-Exposed Comment:Patient exposed to a COVID-19 positive close contact during hospitalization at [facility] (H) on 07/30/2023. See infection control note dated 08/01/2023 for more information (this is posted as a documentation encounter which can be found under Chart Review>Encounters). 07/30/2023 08/01/2023 08/10/2023 1:22 AM E DT COVID-19 11/30/2023 11/30/2023 12/21/2023 1:25 AM EST documented as of this encounter Care Teams Line Person Relationship Specialty Start Date End Date Manpreet Avila NP [address] [facility] [place] [address] PCP - General Family Medicine 12/29/20 Serina Peralta MD [address] [place] [address] Dr [address] [place] [address] Gastroenterology 04/06/22 documented as of this encounter Additional Source Comments The information contained in this document represents components of the legal health record. It is not the complete legal health record.[facility]
--- OUTSIDE RECORDS SUMMARY | 2025-09-29 17:03 | XMS_ITS | Encounter Summary ---
Author Organization [facility] Address [address] [place] [address] Phone Care Team Providers Care Corporate Physical Security Supervisor Name Role Phone Manpreet Avila NP Primary Care Provider + Serina Peralta MD Unavailable [phone] Encounter Details Date Type Department Care Team (Late st Contact Info) Description 07/19/2023 Procedure Pass [facility] [address] [place] [address] Social History Tobacco Use Types Packs/Day Years [...] Upcoming Encounters Date Type Department Care Team ([facility] st Contact Info) Description 10/27/2025 8:00 AM EST Blood Draw [facility] [address] [address] Sepideh Cardenas MD [address] [place] [phone] [email or web address] 11/03/2025 9:40 AM EST Office Visit [facility] [address] [address] Sepideh Cardenas MD [address] [place] [phone] [email or web address] Scheduled Procedures [...] COVID-19 positive close contact during hospitalization at [facility] (H) on 07/30/2023. See infection control note dated 08/01/2023 for more information (this is posted as a documentation encounter which can be found under Chart Review>Encounters). 07/30/2023 08/01/2023 08/10/2023 1:22 AM E DT COVID-19 11/30/2023 11/30/2023 12/21/2023 1:25 AM EST documented as of this encounter Care Teams Corporate Physical Security Supervisor Relationship Specialty Start Date End Date Manpreet Avila NP [address] [facility] [place] [address] PCP - General Family Medicine 2/9/21 Serina Peralta MD [address] [place] [address] Dr [address] [place] [address] Gastroenterology 04/06/22 documented as of this encounter Additional Source Comments The information contained in this document represents components of the legal health record. It is not the complete legal health record.[facility]
--- OUTSIDE RECORDS SUMMARY | 2025-09-29 17:03 | XMS_ITS | Encounter Summary ---
Author Organization [facility] Address [address] [place] [address] Phone Care Team Providers Care Landmen Name Role Phone Manpreet Avila NP Primary Care Provider + Serina Peralta MD Unavailable [phone] Encounter Details Date Type Department Care Team (Latest Contact Info) Description 09/04/2025 Orders Only [facility] [address] [place] [address], 5th [place] [address] Sancho Thakur MD [address] [place] [phone] [email or web address] Encounter for pancreatic duct stent exchange (Primary Dx) Social History Tobacco Use Types Packs/Day Years [...] [facility] [address] [place] [address] Sepideh Cardenas MD [address] [place] [phone] [email or web address] 11/03/2025 9:40 AM EST Office Visit [facility] [address] [place] [address] Sepideh Cardenas MD [address] [place] [phone] [email or web address] Scheduled Procedures Name Priority Associated Diagnoses Date/Ti sc ENDOSCOPIC RETROGRADE CHOLANGIOPANCREATOGRAPHY Encounter for pancreatic duct stent exchange documented as of this encounter Visit Diagnoses Diagnosis Encounter for pancreatic duct stent exchange- Primary documented in this encounter Care Teams Landmen Relationship Specialty Start Date End Date Manpreet Avila NP [address] [facility] [place] [address] PCP - General Family Medicine 12/29/20 Serina Peralta MD [address] [place] [address] [place] [address] Gastroenterology 04/06/22 documented as of this encounter Additional Source Comments The information contained in this document represents components of the legal health record. It is not the complete legal health record.[facility]
--- OUTSIDE RECORDS SUMMARY | 2025-09-29 17:03 | XMS_ITS | Encounter Summary ---
Author Organization [facility] Address [address] [place] [address] Phone Care Team Providers Care Transportation Officer Name Role Phone Manpreet Avila NP Primary Care Provider + Serina Peralta MD Unavailable [phone] Encounter Details Date Type Department Care Team (Late st Contact Info) Description 06/22/2023 Ancillary Orders [facility] [address] [place] [address] Edgar Rodriguez MD 55 [facility] [address] [place] [address] [email or web address] Abnormal finding on imaging Social History Tobacco [...] Upcoming Encounters Date Type Department Care Team ([facility] st Contact Info) Description 10/27/2025 8:00 AM EST Blood Draw [facility] [address] [address] Sepideh Cardenas MD [address] [place] [phone] [email or web address] 11/03/2025 9:40 AM EST Office Visit [facility] [address] [place] [address] Sepideh Cardenas MD [address] [place] [phone] [email or web address] Scheduled Procedures Name Priority Associated Diagnoses Date/Ti hi ENDOSCOPIC RETROGRADE CHOLANGIOPANCREATOGRAPHY Encounter for pancreatic duct stent exchange documented as of this encounter Results * MRI Abdomen Outside With Interpretation Or Consult (06/21/2023 12:00 AM EDT) 06/22/2023 8:19 AM EDT Impressions [facility] - 06/22/2023 12:01 PM EDT Since 09/21/2022, increased multifocal intrahepatic ductal stricturing and dilatation. The distribution is suggestive of a right anterior hepatic stricture, although evaluation is limited due to respiratory motion. Increased ascites. ATTESTATION: I, Dr. Pk Kim as teaching physician, have reviewed the images for this case and if necessary edited the report originally created by Kaylan Riley. Narrative [facility] - 06/22/2023 12:01 PM EDT MRI ABDOMEN [...] COMPARISON: MRI CHOLANGIOPANCREATOGRAPHY (MRCP) WITH AND WITHOUT [id number] FINDINGS: The examination is degraded by motion [...] OUTSIDE IMAGING W/ I NTERPRETATION Final Result [facility] [address] [place] [address] documented in this encounter Visit Diagnoses Diagnosis [...] positive close contact during hospitalization at [facility] (H) on 07/30/2023. See infection control note dated 08/01/2023 for more information (this is posted as a documentation encounter which can be found under Chart Review>Encounters). 07/30/2023 08/01/2023 08/10/2023 1:22 AM E DT COVID-19 11/30/2023 11/30/2023 12/21/2023 1:25 AM EST documented as of this encounter Care Teams Transportation Officer Relationship Specialty Start Date End Date Manpreet Avila NP [facility] [place] [address] PCP - General Family Medicine 12/29/20 Serina Peralta MD [address] [place] [address] [place] [address] Gastroenterology 04/06/22 documented as of this encounter Additional Source Comments The information contained in this document represents components of the legal health record. It is not the complete legal health record.[facility]
--- OUTSIDE RECORDS SUMMARY | 2025-09-29 17:03 | XMS_ITS | Clinical Summary ---
Author Organization [facility] Address [address] [place] [address] Phone Care Team Providers Care Wafer Polishing Lead Worker Name Role Phone Unavailable Primary Care Provider Unavailabl e Social History Tobacco Use Types Packs/Day Years Used Date Smoking Tobacco: Never Assessed Sex and Gender Information Value Date Recorded Sex Assigned at Not on file Legal Sex Male 2:56 PM EDT Gender Identity Not on file Sexual Orientation Not on file Plan of Treatment Upcoming Encounters Date Type Department Care Team ([facility] Contact Info) Description 10/13/2025 2:00 PM EST Office Visit Orthopedic Surgery - [place] [address] [phone] Pato Loza DPM [address] [address] Health Maintenance Due Date Last Done Comments Colorectal Cancer Screening: Colonoscopy 1966 Diabetes: Annual GFR (Glomer ular Filtration Rate) 1966 Diabetes: Annual Foot Exam 1976 Diabetes: Annual Retina Eye Exam 1976 DTaP,Tdap,and Td Vaccines (1 - Tdap) 1985 Hepatitis B Vaccines (1 of 3 - 19+ 3-dose series) 1985 Pneumococcal Vaccine: 50+ Ye ars (1 of 2 - PCV) 1985 Zoster Vaccines (1 of 2) 2016 Depression Screening 11/20/2024 COVID-19 Vaccine (1 - 2023-2 5 season) 2025 Influenza Vaccine (#1) 2025 Cholesterol Screening (Lipid Panel) 08/05/2025 Diabetes: Annual Urine Albumin-Creatinine Ratio (uACR) 08/05/2025 Diabetes: Blood Sugar Contro l Test (HGBA1C) 08/05/2025 HIV Screening 08/05/2025 Hepatitis C Screening 08/05/2025 Social Influencers of Health Screening 08/05/2025 RSV Immunization Adult Patie nts (1 - 1-dose 75+ series) 2041 HIB Vaccines Aged Out No longer eligi ble based on patient's age to complete this topic HPV Vaccines Aged Out No longer eligi ble based on patient's age to complete this topic Hepatitis A Vaccines Aged Out No long er eligible based on patient's age to complete this topic IPV Vaccines Aged Out No longer eligi ble based on patient's age to complete this topic MMR Vaccines Aged Out No longer eligi ble based on patient's age to complete this topic Meningococcal ACWY Vaccine Aged Out N o longer eligible based on patient's age to complete this topic Meningococcal B Vaccine Aged Out No l onger eligible based on patient's age to complete this topic RSV Immunization Patients Un daisha 20 months Aged Out No longer eligible b ased on patient's age to complete this topic Varicella Vaccines Aged Out No longer eligible based on patient's age to complete this topic Insurance [facility]
== END 2025-09-29 15:31 | disposition home or self-care (01) ==
LOC: HO.HGI 14:47
PROVIDERS: PCP Nurse Practitioner Family; Visit Provider Internal Medicine Gastroenterology
DX: K51.90 Ulcerative colitis, unspecified, without complications (principal)
CPT/HCPCS: 99213